=== PATIENT | male | born 1955 | race Caucasian/White ===

== ENCOUNTER → 2019-09-10 08:02 | Outpatient (CLI) | payer OTHER, SELFPAY | PROVIDERS: Family Provider Family Medicine; PCP Family Medicine; Referring Provider Family Medicine; Visit Provider Family Medicine | DX: E78.5 Hyperlipidemia, unspecified (principal) | CPT/HCPCS: 36415 ==

== ENCOUNTER → 2020-03-23 09:48 | Outpatient (CLI) | payer OTHER, MEDICARE, SELFPAY ==
--- NOTE | 2020-03-23 09:55 | CDU_ITS ---
Reason For Study: Carotid artery stenosis Rt. Velocities/BP Lt. Velocities/BP Prox CCA 69.5/20 cm/sec. Prox CCA 75/21.2 cm/sec. Mid CCA 74.7/20 cm/sec. Mid CCA 59.6/16.8 cm/sec. Dist CCA 53.9/16 cm/sec. Dist CCA 55.3/17.9 cm/sec. Prox ICA 48.7/14.6 cm/sec. Prox ICA 55.3/20.1 cm/sec. Mid ICA 60.8/24.5 cm/sec. Mid ICA 76.1/25.6 cm/sec. Dist ICA 90.4/34.4 cm/sec. Dist ICA 80.5/26.7 cm/sec. Rt. ICA/CCA = 1.3. Lt. ICA/CCA = 1.3. Prox ECA 93/16 cm/sec. Prox ECA 77.2/12.4 cm/sec. Rt. Vert. 49.8/17.9 cm/sec. Lt. Vert. 27.3/8 cm/sec. Right Extracranial There is homogeneous, smooth atherosclerotic plaque noted in the right common carotid artery. There is heterogeneous, irregular atherosclerotic plaque noted in the right internal carotid artery. There is heterogeneous, irregular atherosclerotic plaque noted in the right external carotid artery. Antegrade flow is noted in the right vertebral artery. Left Extracranial There is homogeneous, smooth atherosclerotic plaque noted in the left common carotid artery. There is heterogeneous, irregular atherosclerotic plaque noted in the left internal carotid artery. There is intimal thickening but no significant atherosclerotic plaque noted in the left external carotid artery. Antegrade flow is noted in the left vertebral artery. Procedure Carotid Duplex 00113. Exam performed in department. Interpretation Summary Mild (<50%) stenosis right extracranial internal carotid. Mild (<50%) stenosis left extracranial internal carotid. Flow within the vertebral arteries is antegrade bilaterally. Ordering Physician: Neftaly Swanson Referring Physician: Neftaly Swanson Performed By: Anali Larson RVT
== END ==
PROVIDERS: PCP Family Medicine; Referring Provider Family Medicine; Visit Provider Family Medicine
DX: I65.29 Occlusion and stenosis of unspecified carotid artery (principal)
CPT/HCPCS: 93880

== ENCOUNTER → 2020-10-01 10:18 | Outpatient (CLI) | payer MEDICARE, SELFPAY ==
--- NOTE | 2020-10-01 10:23 | US_ITS ---
PROCEDURES: ULTRASOUND AORTA REASON FOR EXAM: Male, 65 years old. SMOKER AAA SCREENING TECHNIQUE: Ultrasound evaluation of the aorta was performed with real-time and static ayers-scale imaging. COMPARISON: None. FINDINGS: There is atherosclerotic plaque formation of the abdominal aorta. Aorta measures: Proximal 2.3 cm. Middle 2.6 cm. Distal 1.8 cm. Aorta measure transversely: Proximal 2.4 cm. Middle 2.8 cm. Distal 2.1 cm. Right iliac artery measures: 1.0 cm. Right iliac artery measure transversely: 0.9 cm. Left iliac artery measures: 0.8 cm. Left iliac artery measure transversely: 0.9 cm. There is no demonstrated aneurysm.. US/Aorta IMPRESSION: Atherosclerotic plaque formation. No evidence of abdominal aortic aneurysm. Electronically Signed: José Justice, at 13:19 EST , Service support ,
--- NOTE | 2020-10-01 10:28 | RAD_ITS ---
STUDY: X-RAY - ESOPHAGUS (BARIUM SWALLOW) WITH FLUOROSCOPY REASON FOR EXAM: Male, 65 years old. Pat states he feels like there is a lump in his upper throat. Difficulty with liquids x 3 weeks. No hx of surgery/No CA. TECHNIQUE: 14 view(s) of the esophagus were obtained following swallowing of barium. FLUOROSCOPY TIME (if supplied): (0:35) minutes/seconds COMPARISON: None. FINDINGS: There is no demonstrated esophageal foreign body. There is no demonstrated stricture or mucosal abnormality. Normal gastroesophageal junction, without a demonstrated hiatal hernia. The patient ingested a 12 mm tablet of barium without any difficulty. Normal visualized aortic arch and descending thoracic aorta. Normal visualized pulmonary parenchyma. Normal visualized osseous structures of the thorax. RAD/Esophagus Dual Contrast IMPRESSION: Normal plain film x-ray examination (barium swallow) of the esophagus. Electronically Signed: José Justice, at 13:18 EST , Service support ,
== END ==
LOC: US 10:20
PROVIDERS: PCP Family Medicine; Referring Provider Family Medicine; Visit Provider Family Medicine
DX: F17.200 Nicotine dependence, unspecified, uncomplicated (principal); R13.10 Dysphagia, unspecified
CPT/HCPCS: 74221; 76775

== ENCOUNTER → 2020-11-04 16:58 | Outpatient (CLI) | payer MEDICARE, SELFPAY | PROVIDERS: PCP Family Medicine; Referring Provider Internal Medicine Gastroenterology; Visit Provider Internal Medicine Gastroenterology | DX: Z11.59 Encounter for screening for other viral diseases (principal) | CPT/HCPCS: 87635; C9803; U0005; U0003 ==

== ENCOUNTER → 2020-12-09 15:53 | Outpatient (CLI) | payer MEDICARE, SELFPAY ==
[2020-12-09 17:36] LABS: Absolute Lymphocyte Count 2.38 X10^3/uL (0.83-4.51); Absolute Neutrophil Count 3.5 X10^3/uL (2.0-7.7); Basophil# 0.07 X10^3/uL; Eosinophil# 0.17 X10^3/uL; Eosinophils% 2.5 % (0-5); Hematocrit 47.4 % (40-54); Hemoglobin 15.4 g/dL (13.0-16.5); Lymphocyte # 2.38 X10^3/ul (4.0); Lymphocyte % 35.5 % (19-41); Mean Corp Hgb Conc 32.5 g/dL (32-36); Mean Corpuscular Hgb 30.7 pg (27.0-32.0); Mean Corpuscular Volume 94.4 fL (80-94); Mean Platelet Vol. 9.6 fl (6.2-12.0); Monocyte# 0.51 X10^3/uL; Monocyte% 7.6 % (0-10); NRBC Flagged by Analyzer 0 % (0-5); Neutrophil # 3.53 X10^3/uL (2.7-7.7); Neutrophil % 52.8 % (47-70); Platelet Count 276 K/mm3 (150-450); RBC Distribution Width CV 12.9 % (11.6-14.6); RBC Distribution Width SD 45.1 fl (35.1-43.9); Red Blood Count 5.02 M/mm3 (4.6-6.2); White Blood Count 6.7 K/mm3 (4.4-11.0)
[2020-12-09 18:10] LABS: AST(SGOT) 14 U/L (15-37); Alanine Aminotransfer ALT/SGPT 24 U/L (16-61); Albumin, Serum 3.7 g/dL (3.2-5.0); Alkaline Phosphatase 28 U/L (45-117); Anion Gap 3 (5-15); BUN 21 mg/dL (7-18); BUN/Creat Ratio 17.4 RATIO (10-20); Calcium,Total 8.9 mg/dL (8.5-10.1); Chloride 105 mmol/L (98-107); Cholesterol 221 mg/dL (200); Creatinine, Serum 1.21 mg/dL (0.70-1.30); EST Glomerular Filtration Rate 64 mL/min (>60); Est Glom Filt Rate - Afr Amer 77 mL/min (>60); Globulin 3.8 g/dL (2.2-4.2); Glucose 85 mg/dL (74-106); High Density Lipoprotein 48 mg/dL; PSA,Total - Annual Screen 1.81 ng/mL (0.00-4.00); Protein, Total 7.5 g/dL (6.4-8.2); Sodium Level 138 mmol/L (136-145); Triglycerides 99 mg/dL; Very Low Density Lipoprotein 20 mg/dL (5-40)
== END ==
LOC: MFPLAB 15:56
PROVIDERS: PCP Family Medicine; Referring Provider Family Medicine; Visit Provider Family Medicine
DX: E78.5 Hyperlipidemia, unspecified (principal); Z12.5 Encounter for screening for malignant neoplasm of prostate
CPT/HCPCS: 36415; 80053; 80061; 84153; 85025; G0103

== ENCOUNTER → 2021-05-26 14:54 | Outpatient (CLI) | payer MEDICARE, SELFPAY ==
[2021-05-26 18:24] LABS: Cholesterol 177 mg/dL (200); High Density Lipoprotein 43 mg/dL; Triglycerides 133 mg/dL; Very Low Density Lipoprotein 27 mg/dL (5-40)
== END ==
PROVIDERS: PCP Family Medicine; Referring Provider Family Medicine; Visit Provider Family Medicine
DX: E78.5 Hyperlipidemia, unspecified (principal)
CPT/HCPCS: 36415; 80061

== ENCOUNTER 2021-11-22 15:19 | Outpatient (CLI) | payer MEDICARE, SELFPAY ==
[2021-11-22 17:57] LABS: ALB/GLOB Ratio 0.9 RATIO (0.9-2.4); AST(SGOT) 13 U/L (15-37); Alanine Aminotransfer ALT/SGPT 30 U/L (16-61); Albumin, Serum 3.6 g/dL (3.2-5.0); Alkaline Phosphatase 29 U/L (45-117); Anion Gap 5 (5-15); BUN 19 mg/dL (7-18); BUN/Creat Ratio 17.8 RATIO (10-20); Calcium,Total 9.1 mg/dL (8.5-10.1); Chloride 103 mmol/L (98-107); Cholesterol 176 mg/dL (200); Creatinine, Serum 1.07 mg/dL (0.70-1.30); EST Glomerular Filtration Rate 73 mL/min (>60); Est Glom Filt Rate - Afr Amer 89 mL/min (>60); Glucose 90 mg/dL (74-106); High Density Lipoprotein 48 mg/dL; Potassium 4.2 mmol/L (3.5-5.1); Protein, Total 7.6 g/dL (6.4-8.2); Sodium Level 137 mmol/L (136-145); Triglycerides 106 mg/dL; Very Low Density Lipoprotein 21 mg/dL (5-40)
[2021-11-23 10:02] LABS: Hepatitis C Antibody Non-Reactive (Nonreactive)
== END 2021-11-22 23:59 | disposition home or self-care (01) ==
LOC: MFPLAB 15:23
PROVIDERS: PCP Nurse Practitioner Family; Referring Provider Nurse Practitioner Family; Visit Provider Nurse Practitioner Family
DX: E78.5 Hyperlipidemia, unspecified (principal); Z11.59 Encounter for screening for other viral diseases
CPT/HCPCS: 36415; 80053; 80061; 86803

== ENCOUNTER → 2023-04-06 | Outpatient (CLI) | payer MEDICARE, SELFPAY ==
[2023-04-06 16:47] LABS: ALB/GLOB Ratio 0.8 RATIO (0.9-2.4); AST(SGOT) 16 U/L (15-37); Alanine Aminotransfer ALT/SGPT 20 U/L (16-61); Albumin, Serum 3.3 g/dL (3.2-5.0); Alkaline Phosphatase 30 U/L (45-117); Anion Gap 4 (5-15); BUN 22 mg/dL (7-18); BUN/Creat Ratio 21.4 RATIO (10-20); Chloride 108 mmol/L (98-107); Cholesterol 218 mg/dL (200); Creatinine, Serum 1.03 mg/dL (0.70-1.30); EST Glomerular Filtration Rate 76 mL/min (>60); Est Glom Filt Rate - Afr Amer 92 mL/min (>60); Globulin 3.9 g/dL (2.2-4.2); Glucose 84 mg/dL (74-106); High Density Lipoprotein 41 mg/dL; Potassium 4.2 mmol/L (3.5-5.1); Protein, Total 7.2 g/dL (6.4-8.2); Sodium Level 141 mmol/L (136-145); Triglycerides 161 mg/dL; Very Low Density Lipoprotein 32 mg/dL (5-40)
== END | disposition home or self-care (01) ==
LOC: MFPLAB 09:31
PROVIDERS: PCP Family Medicine; Visit Provider Family Medicine
DX: E78.5 Hyperlipidemia, unspecified (principal)
CPT/HCPCS: 36415; 80053; 80061

== ENCOUNTER → 2023-07-02 | Outpatient (CLI) | payer MEDICARE, SELFPAY ==
[2023-07-02 18:27] LABS: ALB/GLOB Ratio 1.1 RATIO (0.9-2.4); AST(SGOT) 20 U/L (15-37); Alanine Aminotransfer ALT/SGPT 25 U/L (16-61); Albumin, Serum 3.8 g/dL (3.2-5.0); Alkaline Phosphatase 28 U/L (45-117); Anion Gap 7 (5-15); BUN 22 mg/dL (7-18); BUN/Creat Ratio 18.8 RATIO (10-20); Chloride 104 mmol/L (98-107); Cholesterol 144 mg/dL (200); Creatinine, Serum 1.17 mg/dL (0.70-1.30); EST Glomerular Filtration Rate 66 mL/min (>60); Est Glom Filt Rate - Afr Amer 80 mL/min (>60); Globulin 3.5 g/dL (2.2-4.2); Glucose 90 mg/dL (74-106); High Density Lipoprotein 55 mg/dL; Protein, Total 7.3 g/dL (6.4-8.2); Sodium Level 137 mmol/L (136-145); Triglycerides 121 mg/dL; Very Low Density Lipoprotein 24 mg/dL (5-40)
== END | disposition home or self-care (01) ==
LOC: MFPLAB 16:40
PROVIDERS: PCP Family Medicine; Visit Provider Family Medicine
DX: E78.5 Hyperlipidemia, unspecified (principal)
CPT/HCPCS: 36415; 80053; 80061

== ENCOUNTER → 2023-08-10 | Outpatient (CLI) | payer MEDICARE, SELFPAY ==
--- NOTE | 2023-08-10 08:17 | ART_ITS ---
Reason For Study: LE Numbness Procedure A bilateral lower extremity continuous wave Doppler with analog waveform analysis,segmental pressures,and ankle brachial indexes without exercise. Left Segmental Pressures Left brachial= 158mmHg. Left posterior tibial artery = 179mmHg. Left dorsalis pedis artery = 145mmHg. Left digit = 126 mmHg. The left posterior tibial artery waveforms are triphasic. The left dorsalis pedis waveforms are biphasic. Right Segmental Pressures Right brachial= 151mmHg. Right posterior tibial artery = 166mmHg. Right dorsalis pedis artery = 156mmHg. Right digit = 111 mmHg. The right posterior tibial artery waveforms are triphasic. The right dorsalis pedis waveforms are triphasic. Indices The right ankle brachial index by the posterior tibial artery is 1.05. The right ankle brachial index by the dorsalis pedis is 0.99. The right digital-brachial index is 0.70. The right ankle brachial index by the posterior tibial artery post exercise is 1.06. The left ankle brachial index by the posterior tibial artery is 1.13. The left ankle brachial index by the dorsalis pedis is 0.92. The left digital-brachial index is 0.80. The left posterior tibial artery index post exercise is 1.11. VL/Lower Ext Art Exam w/ Exercise Interpretation Summary Triphasic Doppler waveforms are noted at ankle level on the right. Triphasic an d biphasic Doppler waveforms are noted at ankle level on the left. Pulse-volume recordings appear diminished at digital level bilaterally, but satisfactory at all other levels bilaterally. Resting an kle-brachial indices are normal bilaterally. The right digital-brachial index is mildly diminished. The left digital- brachial index is normal. The patient was ambulated on a treadmill at 1 MPH for 5 minutes at a 5% incline, following which ankle pressures and ankle-brachial indices remained es sentially unchanged. Arterial flow appears normal at ankle level bilaterally, and at digital level o n the left. There is evidence of mild arterial occlusive disease at digital level on the right. Ordering Physician: Scott Mejia Referring Physician: SCOTT MEJIA MD Performed By: Glenn Ponce RVT
--- NOTE | 2023-08-10 08:18 | CT_ITS ---
STUDY: LOW DOSE CT LUNG CANCER SCREENING REASON FOR EXAM: Male, 68 years old. TOBACCO USE. Patient smoked 1 pack per day for 50 years. RADIATION DOSAGE (If Supplied By Facility): CTDIvol = ( 3.02 ) mGy, DLP = ( 108.35 ) mGycm TECHNIQUE: No contrast was administered. Low dose technique was utilized (average mAS-38 and kVp 120). 1.25 mm axial source images with a slice interval of 1.25-mm were reconstructed in lung windows. 2.5 mm axial source images with a slice interval of 2.5-mm were reconstructed in lung windows. 5.0 mm axial source images with a slice interval of 5.0-mm were reconstructed in soft tissue windows. COMPARISON: None. NODULES: There is a 9.6 mm x 5.3 mm spiculated nodule in the posterior aspect of the right upper lobe. Emphysema: Hyperinflation. Emphysematous changes. Scarring in the lung apices. Endobronchial lesion: Unremarkable Aorta: Atherosclerotic plaque calcification. CORONARY ARTERIES: Coronary artery calcification is seen. Heart: Unremarkable Pulmonary artery: Unremarkable Mediastinal nodes: Small mediastinal lymph nodes. Other chest and abdominal findings: CT/Low Dose CT Lung Screening IMPRESSION: Lung-RADS category 4B - Chest CT with or without contrast, PET/CT and/or tissue sampling can be obtained depending on the probability of malignancy and comorbidities. IMPORTANT NOTES FOR USE: ACR Lung-RADS Version 1.1 Assessment Categories Release Date: 2018 Category: Coded 0-4 bases on nodule(s) with highest degree of suspicion. Negative screen is defined as categories 1 and 2; a positive screen is defined as categories 3 and 4. Category 3 and 4A nodules that are unchanged on interval CT should be coded as category 2, and individuals returned to screening in 12 months. Category 4X: Category 3 or 4 nodules with additional imaging findings that increase the suspicion of lung cancer, such as spiculation, GGN that doubles in size in 1 year, enlarged lymph notes, etc. Category Modifiers: S (significant finding unrelated to lung cancer) Electronically Signed: José Justice MD at 14:48 EST ,
== END | disposition home or self-care (01) ==
PROVIDERS: PCP Family Medicine; Referring Provider Family Medicine; Visit Provider Family Medicine
DX: Z12.2 Encounter for screening for malignant neoplasm of respiratory organs (principal); I73.9 Peripheral vascular disease, unspecified; F17.210 Nicotine dependence, cigarettes, uncomplicated
CPT/HCPCS: 71271; 93924

== ENCOUNTER → 2023-08-13 | Outpatient (CLI) | payer MEDICARE, SELFPAY ==
--- NOTE | 2023-08-13 16:15 | MRI_ITS ---
STUDY: MRI BRAIN WITHOUT CONTRAST REASON FOR EXAM: Male, 68 years old. IMBALANCE TECHNIQUE: Standardized multiplanar fat and water weighted pulse sequences were obtained. MRI examination brain fusion protocol including multiplanar multiecho noncontrast imaging. Contrast: No contrast administered. COMPARISON: No relevant prior comparison study available HEMISPHERES, CEREBELLUM AND BRAINSTEM: 1. The cerebral parenchyma, ventricular system, subarachnoid spaces have normal configuration and density. There is a normal gyral pattern. There is normal ayers/white differentiation. No midline shift.. 2. Diffuse involutional changes and scattered chronic microvascular deep white matter disease is noted. There is an area of remote lacunar infarct in the RIGHT caudate head. Additional area of remote infarct involving the LEFT posterior thalamus. 3. No intraparenchymal mass, hemorrhage, or acute territorial infarct. 4. The cerebellum, brainstem, basilar and suprasellar cisterns have normal appearance. No Chiari malformation. 5. Normal appearance the visualized 7th and 8th cranial nerve complexes, IACs and membranous labyrinth. No mass is noted. No abnormal fluid collections or cavities or mastoid air cells. PITUITARY: Infundibulum and pituitary have normal configuration. Midline structures appear normal. CSF SPACES: Appropriate for age. No hydrocephalus. Basal cisterns are patent. VESSELS: 1. There are normal flow voids noted in the great vessels at the skull base ORBITS AND PARANASAL SINUSES: 1. Both globes, extraocular muscles, optic nerves and retrobulbar fat appear unremarkable. 2. Paranasal sinuses are clear. BONY ELEMENTS: Bony elements of the cranial vault, facial skeleton and skull base have normal appearance. SCALP AND SOFT TISSUES: Normal appearance of the soft tissues of the scalp and the visualized face OTHER: None MRI/Brain without Contrast IMPRESSION: 1. Diffuse involutional change, chronic microvascular deep white matter disease and area of remote lacunar infarct involving the RIGHT caudate. Additional area of remote infarct present in the LEFT posterior thalamus. 2. No mass, hemorrhage, or acute territorial infarct noted. 3. Normal appearance of the 7th and 8th cranial nerve complexes, IACs and membranous labyrinth. No mass is noted. No evidence fluid or soft tissue accumulation middle ear cavities or mastoid air cells Electronically Signed: Zafar Ramsay MD at 22:25 EST ,
[2023-08-13 18:38] LABS: Anion Gap 6 (5-15); BUN 18 mg/dL (7-18); BUN/Creat Ratio 18.6 RATIO (10-20); Calcium,Total 8.6 mg/dL (8.5-10.1); Chloride 105 mmol/L (98-107); Creatinine, Serum 0.97 mg/dL (0.70-1.30); EST Glomerular Filtration Rate 82 mL/min (>60); Est Glom Filt Rate - Afr Amer 99 mL/min (>60); Glucose 95 mg/dL (74-106); Potassium 4.2 mmol/L (3.5-5.1); Sodium Level 139 mmol/L (136-145)
== END | disposition home or self-care (01) ==
PROVIDERS: PCP Family Medicine; Referring Provider Family Medicine; Visit Provider Family Medicine
DX: R26.89 Other abnormalities of gait and mobility (principal)
CPT/HCPCS: 36415; 70551; 80048

== ENCOUNTER → 2023-08-23 | Outpatient (CLI) | payer MEDICARE, SELFPAY ==
--- NOTE | 2023-08-23 09:52 | NEURO_ITS ---
NCS and/or EMG Patient Report Ordering Doctor: Scott Mejia DATE OF SERVICE: 08/23/23 Clinical Summary: 68 year old male presenting with complaints of numbness, tingling, and weakness in the lower extremities. Symptoms are most noticeable in the distal lower extremities. This EMG/NCS was performed to evaluate for peripheral polyneuropathy and/or lumbosacral radiculopathies. Nerve Conduction Studies Summary: The superficial SNAP was absent bilaterally. The right peroneal-EDB CMAP amplitude was diffusely reduced. The right peroneal motor conduction velocity was reduced diffusely. Needle Examination Summary: There was a higher proportion of motor unit action potentials with reduced recruitment, increased amplitude, increased duration, and polyphasia in the right biceps femoris (long head) and right medial gastrocnemius muscles. Impression: There is electrodiagnostic evidence of the following - 1) Chronic, right S1 radiculopathy There is no definite electrodiagnostic evidence of a large-fiber based periphe ral polyneuropathy. Please be aware, however, that a small fiber-based peripheral polyneuropathy cannot be confirmed or rule out with conventional electrodiagnostic testing such as EMG/NCS. Multi Select Codes Neurology Neurology Interp Codes: 83666-67 Musc test done w/n test comp (interp) (2) and 60046-34 Nrv cndj test 11-12 studies (interp)
== END | disposition home or self-care (01) ==
PROVIDERS: PCP Family Medicine; Referring Provider Family Medicine; Visit Provider Family Medicine
DX: R20.0 Anesthesia of skin (principal)
CPT/HCPCS: 95886; 95912

== ENCOUNTER 2023-08-24 09:00 | Outpatient (RCR) | payer MEDICARE, SELFPAY ==
--- NOTE | 2023-07-25 09:56 | HP.PTEVAL_ITS ---
Patient's Visit Information Visit Information Visit Information: SARTHAK CUEVAS Jr. is a 68 year old M referred to Physical Therapy by Dr. Scott Mejia MD with a diagnosis of Fall risk, imbalance. Date of Evaluation: 07/20/23 Physical Therapist: Noah De Leon DPT Visit Plan Frequency: 2x /Week Duration: 6 Weeks Plan: Work on BLE strengthening especially R ankle strengthening. Progress dynamic balance. I gave him SLS balance and CKC LE strengthening for HEP. Progress as able. Subjective Subjective: Pt. is here today for his initial evaluation with diagnosis fall risk/balance. Pt. reports almost falling several times both at work and at home. He reports having increased difficulty with feeling his feet resulting in increased imbalance. 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 Pt. reports having increased tingling and weakness in his R leg after a back injury and surgery many years ago. Pt. reports that his leg does not give out on him. He reports having some dizziness at times as well. Pt. just does not feel luis on his feet. Sarthak does not use an AD. Pt. has history of neuropathy, non diabetic. Pt. is to have an EMG in a month or so. Pt. is hopeful to increase BLE strength and balance. Objective Objective: POSTURE: Pt. has slight flexed posture in stance. WOB. PALPATION: No pain with palpation throughout BLEs. NEURO: Normal DTR of BLEs. slight reduction in light touch on R side, mostly distally. Pt. is able to rise on toes, but not on heels. ROM: LUMBAR SPINE: min loss flexion, mod loss ext, rotation min loss throughout. Pt. has tight B calves and tight B HS. MMT: LLE: ankle 5/5 throughout; knee: ext 5-/5, flexion 5-/5; hip: flexion 4+/5, abd 4/5, ext 4/5. RLE: ankle 5/5 throughout; except DF 4/5; knee: ext 4+/5, flexion 5-/5; hip: flexion 4+/5, abd 4/5, ext 4/5. GAIT: Pt. ambulates with out AD. Pt. has increased lateral sway with gait, worse with increased tempo. No LOB noted. STAIRS: Pt. is able to complete but difficulty with controlled eccentric lowering with descending, uses 2 HR to complete. Balance/Special Test Scores Functional Gait Assessment Score: 18 % Disability: 40.0000 Lower Extremity Functional Score: 32 TUG Test Time Seconds: 16 30 Second Chair Rise Test Seconds: 13 6 Minute Walk Test: 917 feet no AD Goals Goal 1:: LTG: Pt. to be I with HEP for strengthening and balance exercises. Goal Time Frame: 4-6 Weeks Goal 2:: LTG: Pt. to have improved TUG score to less than 8 seconds without AD. Goal Time Frame: 4-6 Weeks Goal 3:: LTG: Pt. to have improved distance with 6 MWT to at least 1200 feet. Goal Time Frame: 4-6 Weeks Goal 4:: LTG: Pt. to have increased BLE strength increased to 5/5 throughout. Goal Time Frame: 4-6 Weeks Goal 5:: LTG: Pt. have FGA score increased to 23/30 indicating increased stability. Goal Time Frame: 4-6 Weeks Rehabilitation Potential Physical Therapy Diagnosis: Pt. has signs and symptoms consistent with being a falls risk and need for balance training. Pt. would benefit from PT to increase his BLE strength, and progress balance training. Rehabilitation Potential: Good Anticipated Interventions Patient/Client Instruction: Educate patient on: Condition, Plan of Care, Risk Factors and Benefits of Fitness Program Therapeutic Exercise to Include: Strength training, Power training, Balance training, Agility training, Flexibilty training and Gait and locomotor training For the Purpose of:: To increase oxygenation perfusion, To improve muscle perf ormance and motor function, To improve ability to perform ADL's, To increase tolerance to activity/condition/position, To improve gait and locomotor functions, To improve health of tissue, To decrease soft tissue restriction, To increase flexibility/ROM, To improve endurance and To improve balance Text: Thank you for the opportunity to evaluate your patient. For Medicare and Medicare HMO plans, please review the plan of care and approve it. It will need to be FAXED BACK to us at [phone] for Medicare purposes. For Medicare only, by signing this I certify the plan of care. Please let me know if there are questions or concerns regarding this plan of care. Physician Signature: Date:
--- NOTE | 2023-08-24 10:54 | HP.PTREVAL ---
Re-Evaluation Intro: Dr. Scott Mejia MD, It has been my pleasure to treat EVON CUEVAS Jr. over the last 4 visits for Fall risk, imbalance. Please see the progress note below for an update on the physical therapy plan of care! Subjective Subjective: Pt. arrives today for his re assessment. Pt. since I last saw him has fallen 3 times. No marked injury. He report falling once with physician whom caught him. He reports that his R foot continues to catch causing him to fall. Suggesting foot drop. He has also saw neurology for EMG. I looked at the EMG report and it seems to suggest chronic Right S1 radiculopathy. Objective Objective/Function: ROM: LUMBAR SPINE: flexion min loss NE, ext mod/max loss increase in tingling. SB min loss B NE, rotation min/mod loss bilat NE. Pt. has tight HS bilaterally. MMT: RLE: ankle: DF 23.1#, PF 41.3#; knee: ext: 38#, flexion 18.5# LLE: ankle: DF 31.3#, PF 47.7#; knee: ext: 43#, flexion 23.3# gait: Without AD. Pt. has increased difficulty. Marked lateral sway, He did not have any foot catching, but did describe feeling like he did not have control of his R leg it is just there. I had him walk with a cane. this was much better. HE reports much more stability. STAIRS: Pt. requires 2 HR to complete. Pt. ascends well. He has more difficulty descending when he is leading with his R leg. He reports hard to get his R leg to land where he wants it to. TU sec with cane FGA: was a little worse than last time I suggested that he use the cane currently. If his falls keep occurring he needs to follow up with physician sooner. He had reduced stability in stance with FGA and reduced distance with 6 MWT. He did have some relief with his tingling with R SKTC, worse with lumbar extension. I would consider lumbar spine pathology. I would suggest continued strengthening on LEs and core to increase stability. Add in dynamic balance in order to correct LOB if occurring. Plan Plan Plan: I am asking for more visits x1 per week for 4 weeks. Progress his balance and LE strength. I do suggest that he have his spine looked closer at to make sure we are not dealing with a greater nerve injury from his spine. Balance/Gait/Functional tests Balance/Special Test Scores Functional Gait Assessment Score: 16 % Disability: 46.6700 Lower Extremity Functional Score: 32 TUG Test Time Seconds: 15 Tug Test: <20 sec.=mostly independent 30 Second Chair Rise Test Seconds: 13 6 Minute Walk Test: 871 feet with SPC Goals Goals Goal 1:: LTG: Pt. to be I with HEP for strengthening and balance exercises. Goal Time Frame: 4-6 Weeks Goal Progress: Progressing Goal 2:: LTG: Pt. to have improved TUG score to less than 8 seconds without AD. Goal Time Frame: 4-6 Weeks Goal Progress: Progressing Goal 3:: LTG: Pt. to have improved distance with 6 MWT to at least 1200 feet. Goal Time Frame: 4-6 Weeks Goal Progress: Not Progressing Goal 4:: LTG: Pt. to have increased BLE strength increased to 5/5 throughout. Goal Time Frame: 4-6 Weeks Goal Progress: Progressing Goal 5:: LTG: Pt. have FGA score increased to 23/30 indicating increased stability. Goal Time Frame: 4-6 Weeks Goal Progress: Not Progressing Anticipated Interventions Anticipated Interventions Patient/Client Instruction: Educate patient on: Condition, Plan of Care, Risk Factors and Benefits of Fitness Program Therapeutic Exercise to Include: Strength training, Power training, Balance training, Agility training, Flexibilty training and Gait and locomotor training For the Purpose of:: To increase oxygenation perfusion, To improve muscle performance and motor function, To improve ability to perform ADL's, To increase tolerance to activity/condition/position, To improve gait and locomotor functions, To improve health of tissue, To decrease soft tissue restriction, To increase flexibility/ROM, To improve endurance and To improve balance Re-Evaluation Ending Re-evaluation ending: Please do not hesitate to contact me at [phone] by phone or if you have questions or concerns regarding this new plan of care! Sincerely, Noah De Leon DPT
== END 2023-08-24 19:00 | disposition home or self-care (01) ==
LOC: PT 09:00
PROVIDERS: PCP Family Medicine; Referring Provider Family Medicine; Visit Provider Family Medicine
DX: R26.89 Other abnormalities of gait and mobility (principal); Z91.81 History of falling
CPT/HCPCS: 97110; 97161; 97164

== ENCOUNTER → 2023-09-04 | Outpatient (CLI) | payer MEDICARE, SELFPAY ==
--- NOTE | 2023-09-04 13:58 | CDU_ITS ---
Reason For Study: HX of Stroke Rt. Velocities/BP Lt. Velocities/BP Prox CCA 54.4/15.7 cm/sec. Prox CCA 68.3/19.2 cm/sec. Mid CCA 54.7/18.8 cm/sec. Mid CCA 64.6/20.4 cm/sec. Dist CCA 51.9/18.8 cm/sec. Dist CCA 67.7/21.5 cm/sec. Prox ICA 47.1/16.0 cm/sec. Prox ICA 72.1/24.8 cm/sec. Mid ICA 68.6/29.9 cm/sec. Mid ICA 84.2/34.7 cm/sec. Dist ICA 90.8/38.0 cm/sec. Dist ICA 87.5/32.5 cm/sec. Rt. ICA/CCA = 1.7. Lt. ICA/CCA = 1.4. Prox ECA 87.2/15.4 cm/sec. Prox ECA 100.2/16.7 cm/sec. Rt. Vert. 50.1/17.1 cm/sec. Lt. Vert. 26.3/8.5 cm/sec. Right Extracranial There is homogeneous, smooth atherosclerotic plaque noted in the right common carotid artery. There is heterogeneous, irregular atherosclerotic plaque noted in the right internal carotid artery. There is heterogeneous, irregular atherosclerotic plaque noted in the right external carotid artery. Antegrade flow is noted in the right vertebral artery. Left Extracranial There is homogeneous, smooth atherosclerotic plaque noted in the left common carotid artery. There is heterogeneous, irregular atherosclerotic plaque noted in the left internal carotid artery. There is heterogeneous, irregular atherosclerotic plaque noted in the left external carotid artery. Antegrade flow is noted in the left vertebral artery. Procedure Carotid Duplex [id number]. This is a Carotid Duplex examination using B-mode, color flow and specral Doppler. The exam was diagnostic. Exam performed in department. VL/Carotid Duplex Ultrasound Interpretation Summary Mild (<50%) stenosis right extracranial internal carotid. Mild (<50%) stenosis left extracranial internal carotid. Patent and antegrade vertebrals bilaterally. Ordering Physician: Scott Mjeia Referring Physician: Scott Mejia Performed By: Glenn Ponce RVT
--- NOTE | 2023-09-04 14:20 | CT_ITS ---
STUDY: CT CHEST WITHOUT CONTRAST REASON FOR EXAM: Male, 68 years old. Spiculated nodule in the posterior upper lobe on low dose CT RADIATION DOSAGE (If Supplied By Facility): CTDIvol = ( 10.62 ) mGy, DLP = ( 424.23 ) mGycm TECHNIQUE: Transaxial imaging was performed without the administration of intravenous contrast material. Multiplanar coronal and sagittal images were reformatted. Individualized dose optimization techniques were used for this CT. COMPARISON: Comparison is made with prior study dated August 10, 2023. FINDINGS: CHEST Stable scarring in the lung apices slightly worse on the left side. Stable 9.6 mm x 5.3 mm peripheral nodule in the posterior aspect of the right upper lobe. Hyperinflation. Emphysematous changes. There is no demonstrated pleural abnormality. There are calcifications of the coronary arteries. Normal mediastinum. Normal hilar regions. Normal unenhanced pulmonary arteries. There is atherosclerotic calcification of the aortic arch. There are multi-level degenerative changes of the thoracic spine. There is no demonstrated abnormality of the visualized upper abdomen. CT/Chest WITH Contrast IMPRESSION: Stable 9.6 mm x 5.3 mm micronodule in the posterior aspect of the right upper lobe. Correlation with a PET scan is recommended. Emphysematous changes with scarring at the lung apices. Electronically Signed: José Justice MD at 15:27 EST ,
== END | disposition home or self-care (01) ==
LOC: CVS 13:52
PROVIDERS: PCP Family Medicine; Referring Provider Family Medicine; Visit Provider Family Medicine
DX: R91.1 Solitary pulmonary nodule (principal); Z86.73 Personal history of transient ischemic attack (TIA), and cerebral infarction without residual deficits
CPT/HCPCS: 71260; 93880; Q9967

== ENCOUNTER → 2023-09-18 | Outpatient (CLI) | payer MEDICARE, SELFPAY ==
--- NOTE | 2023-09-18 10:30 | PET_ITS ---
EXAMINATION: FDG PET/CT ? INDICATIONS: 68-year-old male with a history of pulmonary nodularity. ? COMPARISON EXAMINATION: CT of the chest study dated 09/04/2023. ? INDEX LESION SIZE SUV INTERPRETATION Right upper lung field, right upper lobe 10.6 mm 3.1 Fulfills quantitative criteria for viable neoplasm ? Right posterior ileum ? 3.2 max Quantitative criteria for viable neoplasm are fulfilled ? TECHNIQUE: Following the intravenous administration of 13.79 mCi of F-18 deoxyglucose via the right antecubital fossa, multiplanar image acquisitions of the head, neck, chest, abdomen and pelvis to the level of the midthigh, obtained at one-hour post radiopharmaceutical administration contemporaneously interpreted with the current CT of the chest, abdomen and pelvis dated 09/18/[address] of the chest study dated 09/04/2023 via coregistration reveal: SERUM GLUCOSE LEVEL:? 101 mg/dL? HEIGHT:?? 69 inches WEIGHT:?? 159 pounds ? FINDINGS: ? HEAD/NECK:? There is no evidence of abnormal increased glucose metabolism in the pharyngeal mucosal space, parapharyngeal space, oropharynx, bilateral-lateral and anterior neck, hypopharynx and distribution of the larynx. ? The visualized portion of the cerebral cortical-subcortical structures demonstrate symmetric and preserved glucose metabolism. ? CHEST:? Facilitated uptake is noted in the right upper posterior lung zone, right upper lobe. The calculated maximum standard uptake value is 3.1. The maximum axial diameter of the metabolic, morphologic abnormality is 10.6 mm. There is visualized radiopharmaceutical concentration noted in the left ventricular myocardium, consistent with the fed state. ? CT of the chest demonstrates the following anatomic characteristics: Linear parenchymal changes noted in the left apical lung zone are ametabolic. Emphysematous changes are defined in the right and left lung pemberton. Atherosclerotic calcification is defined in the thoracic aorta without evidence of dilatation, aneurysm formation. Coronary arterial calcification is observed. Right and left axillary soft tissue densities are ametabolic. Mediastinal soft tissue reveals no evidence of increased tracer uptake.? ? ABDOMEN/PELVIS:? Normal physiologic distribution of the radiopharmaceutical is identified in the hepatic (2.8) and splenic parenchyma, both renal units, urinary bladder, and visualized intestinal tract. Diffuse intestinal tract is identified in all four quadrants of the abdomen and pelvis. ? CT of the abdomen and pelvis is remarkable for the following: Atherosclerotic calcification is defined in the abdominal aorta without evidence of dilatation, aneurysm formation. Abdominal-pelvic arterial calcification is observed. Calcified phlebolith formation is noted. Calcification within the prostate gland is demonstrated. A fat-containing right inguinal hernia is demonstrated. ? SKELETAL:? A focus of increased radiopharmaceutical concentration is defined in the right posterior ileum, generating a calculated standard uptake value of 3.2. ? PET/PET/CT Tumor Base -Thigh Init IMPRESSION: 1. Increased FDG concentration manifest in the right upper lung field, right upper lobe, fulfills quantitative criteria for malignant transformation. Histopathologic analysis is recommended. (Felicitas et al, Journal of Nuclear Medicine, 32:1, 1990). 2. Facilitated glucose metabolism observed in the right posterior ileum fulfills quantitative criteria for viable osseous neoplasia with single-point technique. (Tone et al, Clinical Nuclear Medicine, 29:161, 2004). ? Electronic Signature Zafar Mcpherson D.O. Accurate Quantification of SUVs for this report are calculated using the exclusive [employer] Technology. (U.S. Patent No. 10, 674, 983 B2 [phone] [place] patent [id number] [id number] [id number]). Standardization and correction of the FDG SUV metric via [employer] technology allow for vendor non-specific objective quantitative examination comparison and optimization of the sensitivity and specificity of the FDG PET-CT examination. . [email or web address] https://[employer] Electronically Signed: Zafar Mcpherson DO at 22:26 EST ,
== END | disposition home or self-care (01) ==
PROVIDERS: PCP Family Medicine; Referring Provider Family Medicine; Visit Provider Family Medicine
DX: R91.1 Solitary pulmonary nodule (principal)
CPT/HCPCS: 78815; A9552

== ENCOUNTER → 2023-09-26 | Outpatient (CLI) | payer MEDICARE, SELFPAY ==
[2023-09-26 09:35] LABS: Platelet Count 311 K/mm3 (150-450)
[2023-09-26 09:49] LABS: International Normalized Ratio 0.9; Prothrombin Time (Protime)PT. 12.4 SECONDS (11.7-14.9)
--- OUTSIDE RECORDS SUMMARY | 2023-09-26 10:27 | XMS RPT_ITS | CCD ---
Author Name Unknown Address [address] [place] [address] Organization [facility] Care Team Providers Care Boilermaking Supervisor Name Role Phone STACEY CEJA Unavailable Unavailable DUNIA AMSON Unavailable Unavailable Unavailable Primary Care Provider Unavailabl e Results Test Name Value Interpretation Reference Range Facil ity Encounters Encounter Date Encounter Type Care Provider Facility Start: 07-31-2023 Telephone encounter Neurology Provid er Neurology Payers Date Payer Category Payer Unknown ANTHEM BLUE CROS S AND BLUE SHIELD ANTHEM MEDIBLUE HMO [id number] 2021-Present [phone] [address] [place] [address] HMO [id number] 2018 Self-pay 1955 Unknown [id number] Social History Date Type Detail Facility Tobacco smoking status WYIS Tobacco smoking consumption unknown [facility] Work Phone: Start: 1955 Sex Assigned At Not on file [facility] Gender identity Not on file [facility] inic Note 07-31-2023 Telephone Encounter - Kenia Green - 07/31/2023 4:14 PM EST Note Date & Type Note Facility 07-31-2023 Miscellaneous Notes Formattin g of this note might be different from the original. Received a referral request for the patient from the Neurology nurse. The patient's demographic information needs to be updated. Copied the face sheet and asked one of the PSS to update the information. When information is updated, we will call the patient to schedule an appointment. documented in this encounter [facility] Summary Purpose Family History No Family History Records FoundNo Family History Records Found Advance Directives No Advanced Directives Records FoundNo Advanced Directives Records Found Additional Source Comments (unrecognized sect ion and content) No Status Records FoundNo Status Records Found INFORMATION SOURCE (unrecogn ized section and content) DATE CREATED AUTHOR AUTHOR'S RUBENS BEAUCHAMP 08/05/2023 [facility] Source Comments (unrecognize d section and content) In the event this informatio n is protected by the Federal Confidentiality of Alcohol and Drug Abuse Patient Records regulations: The Federal rules restrict any use of the information to criminally investigate or prosecute any alcohol or drug abuse patient.[facility] Reason for Visit (unrecogniz ed section and content) FOR RECORDS PERTAINING TO PATIENTS WHO ARE OR HAVE BEEN ENROLLED IN A CHEMICAL DEPENDENCY/SUBSTANCEABUSE PROGRAM, SOME INFORMATION MAY BE OMITTED. This clinical summary was aggregated from multiple sources. Caution should be exercised in using it in the provision of clinical care. This summary normalizes information from multiple sources, and as a consequence, information in this document may materially change the coding, format and clinical context of patient data. In addition, data may be omitted in some cases. CLINICAL DECISIONS SHOULD BE BASED ON THE PRIMARY CLINICAL RECORDS. [facility] [employer] [facility]. provides no warranty or guarantee of the accuracy or completeness of information in this document.
== END | disposition home or self-care (01) ==
LOC: PAVLAB 09:15
PROVIDERS: PCP Family Medicine; Referring Provider Internal Medicine Critical Care Medicine; Visit Provider Internal Medicine Critical Care Medicine
DX: R91.1 Solitary pulmonary nodule (principal)
CPT/HCPCS: 36415; 85049; 85610; 85730

== ENCOUNTER 2023-10-12 07:27 | Outpatient (CLI) | payer MEDICARE, SELFPAY ==
[2023-10-12] VITALS (7 sets, daily range): BP systolic 106–181; BP diastolic 70–104; PULSE 70–93; RESP 14–21; TEMP 36.5; O2SAT 92–95; BMI 23.6
--- OUTSIDE RECORDS SUMMARY | 2023-10-12 07:33 | XMS RPT_ITS | CCD ---
Author Name Unknown Address [facility] [place] [address] Organization [facility] Care Team Providers Care Senior Foreman Name Role Phone Unavailable Primary Care Provider Kaitlynn MASON MD, DR DUNIA Casillas Primary Care MADELYN Britton DO Attending Kaitlynn lopez Results Test Name Value Interpretation Reference Range Facil ity Encounters Encounter Date Encounter Type Care Provider Facility Start: 10-01-[address] DUNIA MASON MD Fa cility:B Start: 07-31-2023 Telephone encounter Neurology Provid er Neurology Payers Date Payer Category Payer Self-pay 2021 Unknown ANTHEM BLUE CROS S AND BLUE SHIELD ANTHEM MEDIBLUE HMO [id number] 2021-Present [phone] [address] [place] [address] HMO [id number] 1955 Unknown [id number] Social History Date Type Detail Facility Tobacco smoking status NHIS Tobacco smoking consumption unknown [facility] Work Phone: Start: 1955 Sex Assigned At Not on file [facility] Gender identity Not on file [facility] inic Note 07-31-2023 Telephone Encounter - [...] schedule an appointment. documented in this encounter [facility] Summary Purpose Family History No Family History Records FoundNo Family History Records Found Advance Directives No Advanced Directives Records FoundNo Advanced Directives Records Found Additional Source Comments Source Comments (unrecognize d section and content) In the event this informatio n is protected by the Federal Confidentiality of Alcohol and Drug Abuse Patient Records regulations: The Federal rules restrict any use of the information to criminally investigate or prosecute any alcohol or drug abuse patient.[facility] Reason for Visit (unrecogniz ed section and content) (unrecognized sect ion and content) No Status Records FoundNo Status Records Found INFORMATION SOURCE (unrecogn ized section and content) DATE CREATED AUTHOR AUTHOR'S ORGANJASBIR ATION 10/02/2023 [facility] ([place]) FOR RECORDS PERTAINING TO PATIENTS WHO ARE [...] BE BASED ON THE PRIMARY CLINICAL RECORDS. [employer] [facility]. provides no warranty or guarantee of the accuracy or completeness of information in this document.
[2023-10-12] MEDS: 0.9% Saline Lock 10 ML Syringe IV (08:08)
[2023-10-12] MEDS: 0.9% Normal Saline (250mL Bag) 250 ML 15 ML IV (08:12)
[2023-10-12] MEDS: Midazolam 2 MG/2 ML Syringe IV (09:12)
[2023-10-12] MEDS: fentaNYL 100 MCG/2 ML Ampul IV (09:15)
--- NOTE | 2023-10-12 09:15 | ASPIGT_PTH ---
PATHOLOGY RESULTS PATIENT: EVON CUEVAS Jr. LOC: [place] U#:[id number] AGE/SX: 68/M ROOM: RE10/12/[address]: Dr. Mannie Ibarra DO : 1955 BED: DIS: 10/12/2023 SPEC #: [id number] RECD: 10/12/23 09:30 STATUS: SAWYER REMikey #: [id number] GERONIMO: 10/12/23 09:[address]: Mannie Ibarra DEPT: SURGICAL PATHOLOGY RECD BY: Jessica Patton ENTERED: 10/12/23 10:09 SP TYPE: ASP RAD OTHR DR: Dr. Scott Mejia MD Tissues: Lung, NOS Procedures: FNA Specimen Adequacy Special Stain Group II Surgery Specimen Level IV Imprint (control) HEADER OPERATION: CT-guided lung biopsy PRE-OP DIAGNOSIS: Right upper lobe lung nodule TISSUE SUBMITTED: Right upper lobe lung nodule 20-gauge core x5 MICROSCOPIC DIAGNOSIS Right upper lobe lung nodule, CT-guided core biopsy: Fragments of benign lung parenchymal tissue with extensive fibrosis. Negative for malignancy. See comment. CHADD:aleida 10/15/2023 COMMENT The specimen is evaluated at the time of biopsy by Dr. Jim. Immediate Evaluation = Negative for malignant cells. Correlation with clinical, radiologic findings and appropriate follow up are necessary. Case has been reviewed in consultation with Dr. Nixon who concurs with the above diagnosis. IDC:AM MICROSCOPIC DESCRIPTION Slides are reviewed. GROSS DESCRIPTION Received in fixative is one container labeled with the patient's name and designated right upper lobe lung nodule. The specimen consists of multiple irregular fragments of garcia soft tissue that in aggregate measure 1.0 x 0.1 x 0.1 cm. The specimen is totally submitted in one cassette. Three touch imprints are prepared at the time of core biopsy. / CHADD:aleida 10/12/2023 TC:5 CPT: 86033, 53970
[2023-10-12] MEDS: Lidocaine 2% (20 ml mdv) 20 ML Vial INFILT (09:33)
--- NOTE | 2023-10-12 09:45 | RAD_ITS ---
INDICATION: post lung biopsy -- Immediately post lung biopsy EXAMINATION/TECHNIQUE: X-RAY - XR Chest 2 Views COMPARISON: CT scan of the chest of 09/04/2023 FINDINGS: LINES/DEVICES: None. LUNGS: Patchy opacity in the right upper lung could be due to pulmonary hemorrhage. Small to moderate right apical pneumothorax. No evidence of pleural effusions. MEDIASTINUM AND CARDIOVASCULAR STRUCTURES: Cardiac silhouette not enlarged. Central airways and mediastinal contour are unremarkable. BONES AND SOFT TISSUES: Mild subcutaneous emphysema on the right side of the neck. RAD/Chest Insp/Exp 2 View IMPRESSION: 1. Small to moderate right apical pneumothorax. 2. Focal opacity in the right midlung could be due to pulmonary hemorrhage. 3. Mild subcutaneous emphysema. Electronically Signed: Boogie Gallardo MD at 10:04 [facility] ,
--- NOTE | 2023-10-12 10:00 | RAD_ITS ---
INDICATION: NEEDLE DECOMPRESSION POST LUNG BX EXAMINATION/TECHNIQUE: X-RAY - XR Chest 1 View COMPARISON: Previous of the same date done earlier. FINDINGS: LINES/DEVICES: Small chest tube in the right upper chest. LUNGS: Persistent right apical pneumothorax essentially unchanged in size since previous exam. Focal infiltrate is again seen in the right midlung zone. MEDIASTINUM AND CARDIOVASCULAR STRUCTURES: Cardiac silhouette not enlarged. Central airways and mediastinal contour are unremarkable. BONES AND SOFT TISSUES: Unremarkable. RAD/Chest 1 View (Portable) IMPRESSION: 1. Status post left chest tube placement. 2. Persistent right pneumothorax. Electronically Signed: Boogie Gallardo MD at 10:11 EST ,
== END 2023-10-12 23:59 | disposition home or self-care (01) ==
LOC: CT 07:29
PROVIDERS: PCP Family Medicine; Referring Provider Internal Medicine Critical Care Medicine; Visit Provider Internal Medicine Critical Care Medicine
DX: R91.1 Solitary pulmonary nodule (principal)
CPT/HCPCS: 32408; 71045; 71046; 77012; 88172; 88305; 88313; 99156; 99157; J7050; A4216

== ENCOUNTER 2023-10-12 09:56 | Inpatient (IN) | payer MEDICARE, SELFPAY ==
[2023-10-12] VITALS (12 sets, daily range): BP systolic 118–158; BP diastolic 78–109; PULSE 64–96; RESP 16–28; TEMP -17.7–36.6; O2SAT 94–99; BMI 24.1
--- NOTE | 2023-10-12 10:02 | NURSING ---
NO OLD EKGS
--- NOTE | 2023-10-12 10:07 | ED.RN ---
denise placed by suzanne palomo radiology. dr mejia at beside. post cxr, connected to water seal.
--- NOTE | 2023-10-12 10:09 | EX.ED.DYSGE1 ---
HPI History of Present Illness Chief Complaint: Shortness of Breath Informant: other (Radiology staff) Narrative Narrative: Patient was here in radiology getting an outpatient interventional radiology procedure for a lung mass biopsy, which was complicated by an iatrogenic pneumothorax right side. This was recognized immediately by the proceduralist, the patient had been given Versed 2 mg and fentanyl 50 mcg prior to the procedure, he was sedated more than expected from this, and he does have a history of COPD. He was brought over to the emergency department, and I met the patient and staff in the resuscitation room, his vital signs are stable he is breathing 16-18 times per minute, he is not responsive. At the time of my evaluation upon arrival, the nurse practitioner from is in the process of placing an anterior thoracostomy tube. PFSH PFSH Home Medications aspirin 81 mg tablet,delayed release 81 mg PO DAILY 09/26/23 [History Last Taken 10/11/23] atorvastatin 40 mg tablet 40 mg PO DAILY 09/26/23 [History Last Taken 10/11/23] pantoprazole 40 mg tablet,delayed release 40 mg PO DAILY 09/26/23 [History Last Taken 10/12/23] gabapentin 300 mg capsule 300 mg PO QHS 10/11/23 [History Last Taken 10/11/23] Allergy/AdvReac Type Severity Reaction Status Date / Time No Known Allergies Allergy Unverified 09/26/23 08:43 Social History Smoking Status: Current every day smoker tobacco type: cigarettes second hand exposure: Yes ROS ROS ED Review of Systems ROS Unobtainable: due to mental status EXAM Physical Exam Const Vital Signs: 10/12/23 09:57 10/12/23 09:59 10/12/23 10:08 Temperature 0 F L Temperature Source Temporal Pulse Rate 64 79 Respiratory Rate 18 16 Respiratory Effort Short of Breath Blood Pressure 120/84 H Blood Pressure Mean 96 Pulse Ox 99 98 Oxygen Delivery Method Non-Rebreather Non-Rebreather Nasal Cannula Oxygen Flow Rate (L/min) 2 10/12/23 10:09 10/12/23 10:14 Temperature Temperature Source Pulse Rate 76 Respiratory Rate 16 Respiratory Effort Blood Pressure 146/88 H Blood Pressure Mean 107 Pulse Ox 97 Oxygen Delivery Method Room Air Nasal Cannula Oxygen Flow Rate (L/min) 2 2 Positive well nourished and well developed General Appearance ED: well developed and NAD HEENT Reports moist mucous membranes Eyes PERRL Neck supple Neck Narrative: no meningismus Chest Wall inspection of chest normal and palpation of chest normal Resp normal respiratory effort Resp Narrative: Decreased breath sounds right side apex otherwise clear Cardio regular rate, regular rhythm and no murmurs GI non-tender and non-distended Auscultation: normoactive bowel sounds Extremity normal to inspection Neuro Neuro Narrative: Obtunded, breathing. Neris Coma Scale: document GCS findings None Withdraws to Pain Incomprehensible 7 Skin no rashes or lesions noted and no wounds MDM MDM MDM Narrative Medical decision making narrative: Initial chest x-ray performed right after the procedure was completed showed persistent pneumothorax. We were able to suction air out of the port of the pleura seal, and placement looks good. Therefore keeping in the differential a persistent air leak, I attached the thoracostomy to a pleura seal, and attached it to wall suction set at -20 cm of water pressure. After initial air was evacuated from the system, there is not a large persistent leak. Repeat 1 view chest x-ray 15 or 20 minutes later on my interpretation shows complete resolution of the pneumothorax with good placement of the tube. On reexamination patient is more alert, and able to talk, converse, GCS 15, since he was breathing 16-18 times per minute, we chose not to reverse the midazolam and wait for it to wear off which occurred without complication. He currently is on minimal oxygen via nasal cannula. Discussed with pulmonary who is in agreement with watching the patient for the day and night in the hospital. History & Record Review Discussion w/independent historian: Family (explained to family who later arrived at bedside) and Other (IR personnel) Additional record(s) reviewed:: Other (prior CXRs) Lab Data Attestation: I reviewed the patient's lab results. Labs: Laboratory Results - last 24 hr 10/12/23 10:15 WBC 8.1 RBC 5.13 Hgb 15.5 Hct 48.4 MCV 94.3 H MCH 30.2 MCHC 32.0 RDW Std Deviation 45.5 H RDW Coeff of Juliane 13.1 Plt Count 263 MPV 8.6 Immature Gran % (Auto) 1.500 H Neut % (Auto) 62.0 Lymph % (Auto) 26.8 Mcnairy % (Auto) 6.9 Eos % (Auto) 1.7 Baso % (Auto) 1.1 H Absolute Neuts (auto) 5.0 Absolute Lymphs (auto) 2.18 Nucleated RBC % 0 Sodium 142 Potassium 4.7 Chloride 109 H Carbon Dioxide 28.0 Anion Gap 5 BUN 19 H Creatinine 1.06 Estim Creat Clear Calc 0.00 Est GFR (MDRD) Af Amer 89 Est GFR (MDRD) Non-Af 74 BUN/Creatinine Ratio 17.9 Glucose 113 H Calcium 8.8 Rhythm Strip Rhythm Strip: Sinus Rhythm Rate: 55 Ectopy: None EKG Initial EKG: Attestation: I personally reviewed and interpreted this EKG as follows: Interpretation: Sinus Rhythm and No Acute Injury Pattern Comments: normal EKG Management Discussion w/another healthcare provider: Hospitalist and Marketing Project Manager ([facility]) Procedures Other Procedures Procedure(s): Directly supervised nurse practitioner placing Pleurasil thoracostomy device in the right anterior chest wall via modified seldinger technique. Tolerated well by patient under sterile conditions, no complications. Discharge Plan Triage Chief Complaint: Shortness of Breath ED Provider: Justin Jim Dx/Rx/DC Orders Clinical Impression: Iatrogenic pneumothorax, Nicotine dependence, cigarettes, uncomplicated, Lung nodule Prescriptions: No Action pantoprazole 40 mg tablet,delayed release (DR/EC) 40 mg PO DAILY Patient Comments: ONE TABLET TABLET BY MOUTH DAILY atorvastatin 40 mg tablet 40 mg PO DAILY Patient Comments: TAKE 1 TABLET BY MOUTH EVERY DAY aspirin 81 mg tablet,delayed release (DR/EC) 81 mg PO DAILY gabapentin 300 mg capsule 300 mg PO QHS Primary Care Provider: Scott Mejia Referrals: Scott Mejia MD [Primary Care Provider] -
[2023-10-12 10:22] LABS: Absolute Lymphocyte Count 2.18 X10^3/uL (0.83-4.51); Basophil# 0.09 X10^3/uL; Basophil% 1.1 % (0-1); Eosinophil# 0.14 X10^3/uL; Eosinophils% 1.7 % (0-5); Hematocrit 48.4 % (40-54); Hemoglobin 15.5 g/dL (13.0-16.5); Lymphocyte # 2.18 X10^3/ul (0.83-4.51); Lymphocyte % 26.8 % (19-41); Mean Corpuscular Hgb 30.2 pg (27.0-32.0); Mean Corpuscular Volume 94.3 fL (80-94); Mean Platelet Vol. 8.6 fl (6.2-12.0); Monocyte# 0.56 X10^3/uL; Monocyte% 6.9 % (0-10); NRBC Flagged by Analyzer 0 % (0-5); Neutrophil # 5.04 X10^3/uL (2.7-7.7); Platelet Count 263 K/mm3 (150-450); RBC Distribution Width CV 13.1 % (11.6-14.6); RBC Distribution Width SD 45.5 fl (35.1-43.9); Red Blood Count 5.13 M/mm3 (4.6-6.2); White Blood Count 8.1 K/mm3 (4.4-11.0)
--- NOTE | 2023-10-12 10:25 | RAD_ITS ---
INDICATION: thoracostomy/ reevaluate pneumothorax EXAMINATION/TECHNIQUE: X-RAY - XR Chest 1 View COMPARISON: Prior examination of the same date done earlier. FINDINGS: LINES/DEVICES: Right-sided Heimlich catheter in stable position. LUNGS: Markedly improved and almost resolved right apical pneumothorax. Focal right upper lobe infiltrate is again seen. MEDIASTINUM AND CARDIOVASCULAR STRUCTURES: Cardiac silhouette not enlarged. Central airways and mediastinal contour are unremarkable. BONES AND SOFT TISSUES: Unremarkable. RAD/Chest 1 View (Portable) IMPRESSION: Markedly improved to almost resolved right apical pneumothorax. Electronically Signed: Boogie Gallardo MD at 10:48 EST ,
--- OUTSIDE RECORDS SUMMARY | 2023-10-12 10:25 | XMS RPT_ITS | CCD ---
Author Name Unknown Address [facility] [place] [address] Organization [facility] Care Team Providers Care Surface Supervisor Name Role Phone Unavailable Primary Care Provider [...] S AND BLUE SHIELD ANTHEM MEDIBLUE HMO [id number] 2021-Present [phone] [address] [place] [address] HMO [id number] 1955 Unknown [id number] Social History Date Type Detail Facility Tobacco smoking status NHIS Tobacco smoking consumption unknown [facility] Work Phone: Start: 1955 Sex Assigned At Not on file [facility] Gender identity Not on file [facility] inic Note 07-31-2023 Telephone Encounter - [...] schedule an appointment. documented in this encounter [facility] Summary Purpose Family History No [...] or prosecute any alcohol or drug abuse patient.[facility] Reason for Visit (unrecogniz ed section and content) (unrecognized sect ion and content) No Status Records FoundNo Status Records Found INFORMATION SOURCE (unrecogn ized section and content) DATE CREATED AUTHOR AUTHOR'S ORGANJASBIR ATION 10/02/2023 [facility] ([place]) FOR RECORDS PERTAINING TO PATIENTS [...] BE BASED ON THE PRIMARY CLINICAL RECORDS. [employer] [facility]. provides no warranty or guarantee of the accuracy or completeness of information in this document.
[2023-10-12 10:39] LABS: Anion Gap 5 (5-15); BUN 19 mg/dL (7-18); BUN/Creat Ratio 17.9 RATIO (10-20); Calcium,Total 8.8 mg/dL (8.5-10.1); Chloride 109 mmol/L (98-107); Creatinine, Serum 1.06 mg/dL (0.70-1.30); EST Glomerular Filtration Rate 74 mL/min (>60); Est Glom Filt Rate - Afr Amer 89 mL/min (>60); Glucose 113 mg/dL (74-106); Potassium 4.7 mmol/L (3.5-5.1); Sodium Level 142 mmol/L (136-145)
--- NOTE | 2023-10-12 10:55 | NURSING ---
DR ROLAND FOR DR SIMS
--- NOTE | 2023-10-12 11:04 | NURSING ---
PCU OBS ROLAND PTX
--- NOTE | 2023-10-12 11:20 | PCM.HP.STD ---
HPI - General General Date of Admission: 10/12/23 Date of Service: 10/12/23 Chief Complaint: Pneumothorax HPI Narrative EVON CUEVAS, is a 68 M with history of right lung mass, GERD, COPD, tobacco use who presented to [facility] 10/12/2023 due to pneumothorax which occurred during a lung biopsy. This was immediately recognized by proceduralist and patient was brought to the ED and had an anterior thoracostomy tube placed. Patient was initially not very responsive but he been given 2 of Versed and 50 of fentanyl for the initial procedure and woke up from this without significant difficulty. Chest x-ray after thoracostomy was attached to pleural seal and air evacuated from system showed complete resolution of pneumothorax with good placement. Currently on minimal O2 via nasal cannula. ED physician spoke with clinical provider trainer on-call who is in agreement to see patient in consult after admission. Hospitalist consulted for admission. Patient evaluated at bedside with family present, reports his breathing is much better, has had some stabbing pain in his chest around the area of the pneumothorax and the chest tube and initially had had some blood in his sputum but is not coughing at this time during exam, only other complaint is that he is cold. Prior to coming in for biopsy patient reports he has not been having any medical complaints or problems. [facility] Home Medications aspirin 81 mg tablet,delayed release 81 mg PO DAILY 09/26/23 [History Last Taken 10/11/23] atorvastatin 40 mg tablet 40 mg PO DAILY 09/26/23 [History Last Taken 10/11/23] pantoprazole 40 mg tablet,delayed release 40 mg PO DAILY 09/26/23 [History Last Taken 10/12/23] gabapentin 300 mg capsule 300 mg PO QHS 10/11/23 [History Last Taken 10/11/23] Allergy/AdvReac Type Severity Reaction Status Date / Time No Known Allergies Allergy Unverified 09/26/23 08:43 Social History Smoking Status: Current every day smoker tobacco type: cigarettes second hand exposure: Yes ROS ROS Narrative General: feels very cold right now HENT: Denies headache, denies stuffy nose, denies sore throat EYES: Denies changes in vision Resp: did initially have some blood in his sputum, shortness of breath improving Cardiac: Has some sharp pain around the area of the chest tube GI: Denies abdominal pain, denies changes in bowel, denies nausea/vomiting : Denies changes in urination Extremity: Denies swelling MSK: Denies weakness Neuro: Denies any numbness/tingling Heme: Denies any bleeding or bruising Skin: Denies rashes Psychiatric: No complaints voiced Vital Signs Vital Signs Vital Signs: 10/12/23 09:57 10/12/23 09:59 10/12/23 10:08 Temperature 0 F L Temperature Source Temporal Pulse Rate 64 79 Respiratory Rate 18 16 Respiratory Effort Short of Breath Blood Pressure 120/84 H Blood Pressure Mean 96 Pulse Ox 99 98 Oxygen Delivery Method Non-Rebreather Non-Rebreather Nasal Cannula Oxygen Flow Rate (L/min) 2 10/12/23 10:09 10/12/23 10:14 10/12/23 10:51 Temperature Temperature Source Pulse Rate 76 72 Respiratory Rate 16 19 H Respiratory Effort Blood Pressure 146/88 H 152/109 H Blood Pressure Mean 107 123 Pulse Ox 97 96 Oxygen Delivery Method Room Air Nasal Cannula Nasal Cannula Oxygen Flow Rate (L/min) 2 2 10/12/23 11:06 Temperature Temperature Source Pulse Rate 83 Respiratory Rate 16 Respiratory Effort Blood Pressure 153/97 H Blood Pressure Mean 115 Pulse Ox 95 Oxygen Delivery Method Nasal Cannula Oxygen Flow Rate (L/min) 2 Weight Weight: 0 g Body Mass Index (BMI) 0.0 Physical Exam Narrative General: Alert, oriented, no apparent distress HEENT: Atraumatic, normocephalic Eyes: Anicteric, normal conjunctiva, extraocular movements grossly intact Neck: Supple Respiratory: Right sided wheezes, breath sounds bilaterally Cardiovascular: Regular rate and rhythm GI: Soft, nontender, nondistended Extremities: No edema Musculoskeletal: Moving all extremities Neuro: No overt focal neurological deficits Skin: No rashes appreciated Psych: Cooperative Results Lab / Micro Data 10/12/23 10:15 10/12/23 10:15 Labs: Laboratory Results - last 24 hr 10/12/23 10:15: WBC 8.1, RBC 5.13, Hgb 15.5, Hct 48.4, MCV 94.3 H, MCH 30.2, MCHC 32.0, RDW Std Deviation 45.5 H, RDW Coeff of Juliane 13.1, Plt Count 263, MPV 8.6, Immature Gran % (Auto) 1.500 H, Neut % (Auto) 62.0, Lymph % (Auto) 26.8, Desha % (Auto) 6.9, Eos % (Auto) 1.7, Baso % (Auto) 1.1 H, Absolute Neuts (auto) 5.0, Absolute Lymphs (auto) 2.18, Nucleated RBC % 0, Sodium 142, Potassium 4.7, Chloride 109 H, Carbon Dioxide 28.0, Anion Gap 5, BUN 19 H, Creatinine 1.06, Estim Creat Clear Calc 0.00, Est GFR (MDRD) Af Amer 89, Est GFR (MDRD) Non-Af 74, BUN/Creatinine Ratio 17.9, Glucose 113 H, Calcium 8.8 Rhythm Strip Rhythm Strip: Sinus Rhythm Rate: 55 Ectopy: None Imagaing Radiology Impression Chest X-Ray 10/12/23 10:25 IMPRESSION: Markedly improved to almost resolved right apical pneumothorax. Electronically Signed: Boogie Gallardo MD at 10:48 EST , Assessment & Plan Assessment/Plan (1) Iatrogenic pneumothorax: (2) Lung nodule: (3) Nicotine dependence, cigarettes, uncomplicated: (4) COPD (chronic obstructive pulmonary disease): (5) GERD (gastroesophageal reflux disease): PLAN: Plan #Iatrogenic pneumothorax on right s/p chest tube -During lung biopsy, immediately identified and brought to ED w/ chest tube placed -Pulm c/s -CXR w/ resolution of pneumothorax with tube placement and air removeal -Pain control -I/s #Lung mass -Follows w/ pulm on outpt basis #GERD -Continue PPI #Tobacco use -Advise cessation -Patient refuses nicotine replacement #DVT ppx: SCDs Annmarie Al MD Time spent in the patient's overall evaluation,decision-making process, review of diagnostic data, adjustment of management, discussion with other providers, nursing nursing and ancillary staff involved in patient's care documentation, 45 minutes Charges/Coding Visit Charges Inpatient E&M: 94387 Init Hosp L1
--- NOTE | 2023-10-12 11:20 | PCM.OP.PRO ---
Procedure Report Date of Procedure: 10/12/23 (7817) Assessment & Plan Assessment/Plan (1) Lung nodule: PLAN: PROCEDURE: CT GUIDED CORE NEEDLE LUNG BIOPSY ORDERING PROVIDER: Dr. Mannie Ibarra INDICATION: Male, 68 years old. Right upper lobe nodule. PROVIDER: MARIA T Bowen CONSENT: Written informed consent was obtained having explained the risks, specifically including bleeding, infection, and pneumothorax, benefits and alternatives in detail with the patient who accepted the risks and agreed to proceed. Laboratory review and clinical assessment was performed. PRE-PROCEDURE SEDATION ASSESSMENT: Current history and physical dictated by referring physician and reviewed. No clinical changes since date of exam. Patient has an ASA Class of 2. PROCEDURAL SEDATION PROTOCOL: The Drugs used were: 2 mg Versed, IV, and 50 mcg Fentanyl, IV. The sedation time was: 33 minutes, starting at 9:12 AM and terminated at 9:45 AM. The procedural sedation protocol was independently monitored by the department nurse. RADIATION DOSAGE (If Supplied By Facility): CTDIvol = 18.05 mGy, DLP = 887.24 mGycm Individualized dose optimization techniques were used for this CT. TECHNIQUE: The patient was placed in a prone position. A noncontrast CT was performed to localize the lesion in the right upper lobe. The skin surface was prepped and draped in a sterile fashion. 2% lidocaine was used for local anesthesia. Using CT guidance, a 20-gauge coaxial biopsy device was advanced at a 20 degree angle towards the periphery of the lesion, as the only accessible angle due to direct obstruction by rib and scapula posteriorly. Th this but the needle just medial of the periphery of the lesion when viewed under fluoroscopy. The needle was adjusted accordingly in a lateral direction into the lesion. It was apparent under fluoroscopy that the patient had developed a pneumothorax, but vital signs remained stable and patient was responsive. 5 core specimens were obtained. Specimens were microscopically reviewed by pathology in the CT suite and placed in formalin solution. The biopsy needle was removed. A sterile occlusive dressing was applied to the biopsy site. The patient tolerated the procedure well. An immediate chest xray was ordered, per protocol. During this x-ray, the patient became hypoxic and less responsive. A nonrebreather was applied and a rapid response was called. The patient was taken to ED room 2 by nursing staff and myself. Dr. Jim joined us at the bedside and the Thora vent supplies were assembled for insertion and an EKG was obtained. See separate procedure note for insertion of Thora vent and further emergency documentation. A negative biopsy does not exclude malignancy. Further imaging or clinical followup based on patient condition and degree of clinical suspicion for malignancy. Suggest rebiopsy, if biopsy results do not match with clinical scenario. IMPRESSION: 1. CT directed core needle biopsy of right upper lobe nodule using CT image guidance with image documentation as described. Pathology results are pending. 2. Procedural Sedation protocol utilized with independent monitoring by the department nurse. Procedures Radiology Radiology CT Procedures: 51171 Biopsy Lung
--- NOTE | 2023-10-12 11:39 | PRO.PCM_ITS ---
Procedure Report Date of Procedure: 10/12/23 (0955) Assessment & Plan Assessment/Plan (1) Iatrogenic pneumothorax: PLAN: PLAN: A chest x-ray was obtained post lung biopsy. This revealed a small to moderate right apical pneumothorax. The patient was transported to the emergency depar tment on the monitor by cart. With nursing staff present, the patient was transferred to the ER monitor and supplies gathered to insert the thoracic vent. Emergency department physician, Dr. Jim, was also at bedside. Patient history and course of the biopsy was reviewed, as was the chest imaging. The patient remained not responsive to verbal stimuli, and therefore was not premedicated besides the procedural medication used for the lung biopsy. The patient was positioned in high Fowlers. The right upper chest was cleansed with chlorhexidine. Using manual palpation, the second intercostal space in the mid clavicular line was marked. The skin was anesthetized locally with 2% lidocaine. After the local anesthetic was given time to take effect, a kim was made in the skin with the procedure tray scalpel. The thoracic vent was assembled for insertion with the trocar through the self-sealing port and catheter and the point of the trocar just slightly beyond the tip of the cathete r. The trocar/catheter assembly was then inserted to the pleural space. The red signal diaphragm deflected upwards once reaching the pleural space. At this point, the catheter was then advanced fully into the pleural space, over the trocar and the trocar was removed. The paper on the side flaps of the adhesive patches of the vent were peeled away and adhered to the chest wall to create an occlusive dressing. The tether cap was applied to the self-sealing port. A chest x-ray was ordered. This chest x-ray was evaluated at bedside with Dr. Jim and revealed the chest tube within the pleural space. The the Thora vent was connected to a Pleur-evac system at -20 mmHg pressure to expedite evacuation of pneumothorax. The patient will remain in the emergency department for observation and a repeat chest x-ray will be ordered to evaluate for resolution of the pneumothorax and determine disposition. The patient remains comfortable with oxygen saturation improving. The nonrebreather was removed and the patient was maintaining oxygen saturation and oxygen saturation of 95% on 2 L. The patient's and family member is at bedside and was updated as to the events of the biopsy and thoracic vent insertion. All questions were answered. Procedures Radiology Radiology US Procedures: Other Procedure See Report (Insertion of Thoravent (thoracic vent/chest tube))
--- OUTSIDE RECORDS SUMMARY | 2023-10-12 11:41 | XMS RPT_ITS | CCD ---
Author Name Unknown Address [facility] [place] [address] Organization [facility] Care Team Providers Care Silver Cleaner Name Role Phone Unavailable Primary Care Provider [...] S AND BL[employer] HMO [id number] 2021-Present [phone] [address] [place] [address] HMO [id number] 1955 Unknown [id number] Social History Date Type Detail Facility Tobacco smoking status NHIS Tobacco smoking consumption unknown [facility] Work Phone: Start: 1955 Sex Assigned At Not on file [facility] Gender identity Not on file [facility] inic Note 07-31-2023 Telephone Encounter - Kenia [...] schedule an appointment. documented in this encounter [facility] Summary Purpose Family History No Family History [...] or prosecute any alcohol or drug abuse patient.[facility] Reason for Visit (unrecogniz ed section and content) (unrecognized sect ion and content) No Status Records FoundNo Status Records Found INFORMATION SOURCE (unrecogn ized section and content) DATE CREATED AUTHOR AUTHOR'S ORGANJASBIR ATION 10/02/2023 [facility] ([place]) FOR RECORDS PERTAINING TO [...] BE BASED ON THE PRIMARY CLINICAL RECORDS. [facility]. provides no warranty or guarantee of the accuracy or completeness of information in this document.
--- OUTSIDE RECORDS SUMMARY | 2023-10-12 12:05 | XMS RPT_ITS | CCD ---
Author Name Unknown Address [facility] [place] [address] Organization [facility] Care Team Providers Care Bird Keeper Name Role Phone Unavailable Primary Care Provider [...] S AND [employer] HMO [id number] 2021-Present [phone] [address] [place] [address] HMO [id number] 1955 Unknown [id number] Social History Date Type Detail Facility Tobacco smoking status NHIS Tobacco smoking consumption unknown [facility] Work Phone: Start: 1955 Sex Assigned At Not on file [facility] Gender identity Not on file [facility] inic Note 07-31-2023 Telephone Encounter - Kenia [...] schedule an appointment. documented in this encounter [facility] Summary Purpose Family History No [...] or prosecute any alcohol or drug abuse patient.[facility] Reason for Visit (unrecogniz ed section and content) (unrecognized sect ion and content) No Status Records FoundNo Status Records Found INFORMATION SOURCE (unrecogn ized section and content) DATE CREATED AUTHOR AUTHOR'S ORGANJASBIR ATION 10/02/2023 [facility] ([place]) FOR RECORDS PERTAINING TO PATIENTS [...] BE BASED ON THE PRIMARY CLINICAL RECORDS. [facility]. provides no warranty or guarantee of the accuracy or completeness of information in this document.
[2023-10-12] MEDS: Morphine 2 MG/ML Syringe IV (12:34)
[2023-10-12] MEDS: Acetaminophen 500 MG Tablet 1000 MG PO ×2 (15:10→20:23)
[2023-10-12] MEDS: oxyCODONE 5 MG Tablet PO (15:10)
--- NOTE | 2023-10-12 15:40 | CT_ITS ---
We are attempting to reach an attending provider to discuss findings. An addendum with communication details will be sent when the communication is complete. INDICATION: stroke EXAMINATION: CT BRAIN - CT Head or Brain W/O Contrast Injection TECHNIQUE: Multiple axial images were obtained of the head without intravenous contrast. A radiation dose optimization technique was used for this scan. IV Contrast dosage and agent: None. COMPARISON: None. FINDINGS: BRAIN PARENCHYMA: No intra- or extra-axial hemorrhage. No evidence of acute infarct. No intracranial mass or mass effect. There is preservation of the ayers/white matter interface. Posterior fossa structures are unremarkable. CSF SPACES: Appropriate for age. No hydrocephalus. Basal cisterns are patent. CALVARIUM, SKULL BASE, PARANASAL SINUSES AND MASTOID AIR CELLS: Clear. No discrete lytic or blastic abnormalities. ORBITS: Both globes, extraocular muscles, optic nerves and retrobulbar fat appear unremarkable. CT/STROKE Brain/Head without Cont IMPRESSION: No acute intracranial findings. Electronically Signed: Juan Diego Heller MD at 16:13 EST ,
--- NOTE | 2023-10-12 15:54 | CT_ITS ---
INDICATION: Stroke symptoms EXAMINATION: CTA CAROTIDS AND BRAIN - CTA Head and Neck W/ Contrast Injection (and W/O Contrast Images if performed) TECHNIQUE: Routine CTA of the head and neck was performed with post processing of the angiographic images for volumetric reconstructions. In addition, images were obtained of the [place]ill[place] of Schmidt. Nascet criteria using the distal ICAs for comparison were used for evaluation of stenoses. 3D reconstructions were reviewed. A radiation dose optimization technique was used for this scan. IV Contrast dosage and agent: 100 cc [id number] COMPARISON: Noncontrast head CT same date FINDINGS: --NECK: AORTIC ARCH AND BRANCHES: Vessel origins patent. RIGHT CCA: No occlusion, significant stenosis or dissection. RIGHT ICA: No occlusion, significant stenosis or dissection. LEFT CCA: No occlusion, significant stenosis or dissection. LEFT ICA: No occlusion, significant stenosis or dissection. RIGHT VERTEBRAL ARTERY: No occlusion, significant stenosis or dissection. LEFT VERTEBRAL ARTERY: Diminutive vessel, terminates at the base of the skull. NECK SOFT TISSUES: Unremarkable. LUNG APICES: Right apical infiltrate with emphysematous changes and small apical pneumothorax. BONES: Degenerative changes. --HEAD: --Anterior circulation: ICAs: No significant stenosis at the intracranial/visualized segments. ACAs: No significant stenosis at the visualized segments. ACOM: Present. MCAs: No significant stenosis at the visualized segments. --Posterior circulation: PCOMs: Patent bilaterally. biotechnician: No significant stenosis at the visualized segments. BASILAR ARTERY: No significant stenosis. VERTEBRAL ARTERIES: No significant stenosis at the intradural/visualized segments. No evidence of intracranial aneurysm or vascular malformation. CT/CTA Head AND Neck W/ Contrast IMPRESSION: Negative CTA Head and Neck. Right apical infiltrate with small pneumothorax. Electronically Signed: Juan Diego Heller MD at 16:26 EST Reading Location ID and State: [facility] / [place] Tel , Service support ,
[2023-10-12 15:56] LABS: Bedside Glucose 149 mg/dL (74-106)
--- NOTE | 2023-10-12 16:36 | PCM.HOSP.N ---
Hospitalist Note Patient had stroke call 1537 with last known well 1230 at time of assessment to the floor. NIH of 9, patient unable to move left arm and has left-sided visual field defect, taken to CAT scan and CT and CTA obtained which were negative. Patient evaluated by stroke neurologist and stroke neurologist discussed with proceduralist who did biopsy and chest tube and given bleeding with the biopsy it was felt risks of bleeding were too high to proceed with TNK, stroke neurologist discussed with family and patient. It was advised that patient be given 81 mg of aspirin today and tomorrow loaded with 150 of Plavix followed by DAPT for 21 days and then aspirin indefinitely, monitor on telemetry and high intensity statin, lipid panel and A1c in the a.m., permissive hypertension [facility]. If no A-fib or other source found it is recommended the patient have janitorial account manager on DC. Stroke order set entered. All questions answered
--- NOTE | 2023-10-12 16:42 | ECHOD_ITS ---
Reason For Study: TIA/Stroke Procedure This was a 2D Doppler, Color Flow transthoracic echocardiogram. Exam performed portable in patient room. Left Ventricle Normal left ventricle. The estimated ejection fraction is 55-60 %. Right Ventricle Normal right ventricle. Normal systolic function. Atria Normal left atrium. Normal right atrium. Mitral Valve The mitral valve is structurally normal. No prolapse or stenosis seen. Tricuspid Valve Normal tricuspid valve. Aortic Valve Trisinus/trileaflet aortic valve. Pulmonic Valve The pulmonic valve is not well visualized. Great Vessels Normal aortic root. Pericardium/Pleural No pericardial effusion. Medication Performed a rapid injection of agitated mix of 9 cc saline and 1cc air to assess for atrial septal defect. MMode/2D Measurements & Calculations LVIDd: 4.3 cm IVSd: 0.99 cm Ao root diam: 2.9 cm LVIDs: 2.7 cm LVPWd: 0.96 cm RVDd: 3.2 cm FS: 36.7 % LAV(MOD-bp): 20.7 ml LVAd ap4: 21.1 cm2 SV(MOD-sp4): 33.0 ml LAV(MOD-bp) Indexed: 10.9 ml/m2 LVLd ap4: 7.1 cm LAV(MOD-sp2): 17.6 ml EDV(MOD-sp4): 50.7 ml LAV(MOD-sp4): 18.3 ml EDV(sp4-el): 53.4 ml LVAs ap4: 11.2 cm2 LVLs ap4: 6.1 cm ESV(MOD-sp4): 17.7 ml ESV(sp4-el): 17.6 ml EF(MOD-sp4): 65.1 % EF(sp4-el): 67.1 % SV(sp4-el): 35.8 ml LA A4 area: 9.6 cm2 LA dimension(2D): 2.7 cm RA A4 area: 10.6 cm2 TAPSE: 2.0 cm Time Measurements MV dec time: 0.28 sec Doppler Measurements & Calculations MV E max kendall: 61.6 cm/sec Lat Peak E' Kendall: 11.1 cm/sec Med Peak E' Kendall: 7.6 cm/sec MV A max kendall: 65.8 cm/sec E/E' lat: 5.6 E/E' med: 8.1 MV E/A: 0.94 MV dec slope: 217.7 cm/sec2 Ao V2 max: 108.2 cm/sec LV V1 max: 87.8 cm/sec Ao max P.7 mmHg LV V1 max P.1 mmHg Ao V2 mean: 72.9 cm/sec Ao mean P.4 mmHg Ao V2 VTI: 21.4 cm PA V2 max: 56.7 cm/sec ECHO/Echo Complete Interpretation Summary The estimated ejection fraction is 55-60 %. Buble study not well visualized No rior study to compare Ordering Physician: Annmarie Al Referring Physician: Scott Mejia Performed By: Mirian Rubin, NAILACS, RVT
--- NOTE | 2023-10-12 16:42 | MRI_ITS ---
STUDY: MRI BRAIN WITHOUT CONTRAST REASON FOR EXAM: Male, 68 years old. Left side flaccid TECHNIQUE: Multiplanar multisequence imaging of the brain was performed without the administration of intravenous contrast. COMPARISON: Noncontrast head CT same date, brain MRI 08/13/2023 FINDINGS: The ventricles, cisterns, and sulci are prominent consistent with age-related volume loss. There is no restricted diffusion to suggest acute ischemia or infarction. No succeptibility artifict to suggest intracranial hemorrhage or mineralization. Major intracranial signal voids are preserved. There is stable mild high T2/FLAIR signal seen in the periventricular deep white matter. There is no midline shift, mass effect, or extra axial fluid collections are seen. No CP angle or IAC mass is seen. The orbits are unremarkable. The sella turcica and craniovertebral junction are within normal limits. The visualized paranasal sinuses are clear. The mastoid air cells are clear. MRI/Brain without Contrast IMPRESSION: Chronic microvascular ischemic changes. No intracranial hemorrhage, acute infarct, or space occupying lesion seen on this noncontrast MRI of the brain. Electronically Signed: Juan Diego Heller MD at 18:53 EST ,
[2023-10-12] MEDS: Aspirin 81 MG TAB.CHEW PO (18:54)
[2023-10-12] MEDS: Gabapentin 300 MG Capsule PO (20:23)
[2023-10-13] VITALS (7 sets, daily range): BP systolic 132–163; BP diastolic 92–104; PULSE 71–83; RESP 14–18; TEMP 36.4–36.8; O2SAT 93–95; BMI 24.1
[2023-10-13] MEDS: Acetaminophen 500 MG Tablet 1000 MG PO ×3 (05:07→20:13)
--- NOTE | 2023-10-13 06:30 | RAD_ITS ---
EXAM: XR CHEST, 1 VIEW CLINICAL INDICATION: Pneumothorax TECHNIQUE: Frontal view of the chest. COMPARISON: 10/12/2023. FINDINGS: LUNGS AND PLEURAL SPACES: Decreased patchy opacity right upper lobe. No effusion. No pneumothorax. HEART: Unremarkable. Cardiac silhouette not enlarged. MEDIASTINUM: Central airways and mediastinal contour are unremarkable. BONES/JOINTS: Unremarkable. No acute fracture. SOFT TISSUES: Unremarkable. TUBES, LINES AND DEVICES: Small caliber right-sided chest tube. RAD/Chest 1 View (Portable) IMPRESSION: 1. No pneumothorax. 2. Decreased patchy opacity right upper lobe. Electronically Signed: Kelvin Wang MD at 7:24 EST ,
[2023-10-13 06:41] LABS: Absolute Neutrophil Count 4.3 X10^3/uL (2.0-7.7); Basophil# 0.03 X10^3/uL; Basophil% 0.4 % (0-1); Eosinophil# 0.21 X10^3/uL; Eosinophils% 3.1 % (0-5); Hematocrit 43.9 % (40-54); Hemoglobin 14.5 g/dL (13.0-16.5); Lymphocyte % 22.3 % (19-41); Mean Corpuscular Hgb 30.7 pg (27.0-32.0); Mean Platelet Vol. 8.9 fl (6.2-12.0); Monocyte% 8.9 % (0-10); NRBC Flagged by Analyzer 0 % (0-5); Neutrophil # 4.29 X10^3/uL (2.7-7.7); Platelet Count 230 K/mm3 (150-450); RBC Distribution Width CV 13.2 % (11.6-14.6); RBC Distribution Width SD 45.3 fl (35.1-43.9); Red Blood Count 4.72 M/mm3 (4.6-6.2); White Blood Count 6.7 K/mm3 (4.4-11.0)
[2023-10-13 07:19] LABS: Anion Gap 3 (5-15); BUN 21 mg/dL (7-18); BUN/Creat Ratio 21.6 RATIO (10-20); Calcium,Total 8.9 mg/dL (8.5-10.1); Chloride 108 mmol/L (98-107); Cholesterol 160 mg/dL (200); Creatinine, Serum 0.97 mg/dL (0.70-1.30); EST Glomerular Filtration Rate 82 mL/min (>60); Est Glom Filt Rate - Afr Amer 99 mL/min (>60); Estimated Creatinine Clearance 71.87 ml/min; Glucose 104 mg/dL (74-106); High Density Lipoprotein 48 mg/dL; Potassium 3.8 mmol/L (3.5-5.1); Sodium Level 138 mmol/L (136-145); Thyroid Stim Hormone (TSH) 2.22 uIU/mL (0.358-3.74); Triglycerides 70 mg/dL; Very Low Density Lipoprotein 14 mg/dL (5-40)
--- NOTE | 2023-10-13 07:25 | CON.PCM.CC_ITS ---
Assessment & Plan Assessment/Plan (1) Iatrogenic pneumothorax: PLAN: Plan RECOMMENDATIONS: 1. Thoracic vent removed this morning. Obtain follow-up chest x-ray in 1 hour. 2. A follow-up chest imaging is stable, the patient can be discharged home and follow-up in the pulmonary medicine clinic as scheduled. IMPRESSIONS: 1. Iatrogenic pneumothorax The patient sustained an iatrogenic pneumothorax following CT-guided lung biopsy due to a PET positive pulmonary nodule in the right upper lobe. He underwent thoracic vent placement with subsequent resolution of the pneumothorax. The patient is stable from a respiratory perspective this morning. Therefore, the thoracic vent was removed. Recommend obtaining follow-up chest x-ray in approximately 1 hour. If stable, the patient can be discharged home with outpatient pulmonary follow-up as scheduled. This note was generated with [employer] software. It may contain incorrect words, spelling, and punctuation that were not noted in checking the note before signing. HPI Consult Data Date of Consult: 10/13/23 HPI Narrative Reason for Consultation: Iatrogenic pneumothorax HPI Narrative: The patient is a 68-year-old male, with a history as outlined below, who presented to the hospital on October [address]-guided lung biopsy. The patient had just been referred to the outpatient pulmonary office on September 26 for the evaluation of a pulmonary nodule. The patient underwent a low-dose CT screening in mid July 2023, which demonstrated a 9.6 mm nodule in the posterior aspect of the right upper lobe. The patient's primary care provider then ordered a follow-up CT scan in mid August 2023, which again confirmed a 9.6 mm nodule in the right upper lobe. He then went on to complete a PET scan, which was completed on September 18, 2023, which revealed increased uptake in the right upper lobe with an SUV of 3.1. The patient has an approximate [id number] smoking history and continues to smoke 0.5 packs of cigarettes per day. In addition to his personal smoking history, he did grow up in a smoking household. 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 Unfortunately, the patient developed an iatrogenic pneumothorax, which was medically managed with thoracic vent placement. Follow-up chest imaging demonstrated resolution of the noted pneumothorax. [facility] Home Medications aspirin 81 mg tablet,delayed release 81 mg PO DAILY 09/26/23 [History Last Taken 10/11/23] atorvastatin 40 mg tablet 40 mg PO DAILY 09/26/23 [History Last Taken 10/11/23] pantoprazole 40 mg tablet,delayed release 40 mg PO DAILY 09/26/23 [History Last Taken 10/12/23] gabapentin 300 mg capsule 300 mg PO QHS 10/11/23 [History Last Taken 10/11/23] Allergy/AdvReac Type Severity Reaction Status Date / Time No Known Allergies Allergy Unverified 09/26/23 08:43 Social History Smoking Status: Current every day smoker tobacco type: cigarettes second hand exposure: Yes ROS ROS Narrative 10 systems were reviewed with pertinent positives as noted in the HPI above. Physical Exam Const alert, oriented x3 and no apparent distress HEENT normocephalic, head/scalp atraumatic and moist oral mucous membranes Eyes PERRL, EOMs intact bilaterally and conjunctivae normal Neck supple General: trachea midline Chest inspection of chest normal Resp normal respiratory effort Resp Narrative: Right-sided thoracic vent in place. Auscultation: diminished lung sounds Cardio regular rate and regular rhythm GI normal to inspection, nondistended, normoactive bowel sounds Extremity no clubbing, cyanosis or edema Skin no rashes or lesions noted Neuro oriented x3, CN's II-XII intact bilaterally, moves all extremities and no focal motor deficits Psych cooperative and affect normal Lab / Micro Data 10/13/23 06:24 10/13/23 06:21 Labs: Laboratory Results - last 24 hr 10/12/23 10:15: WBC 8.1, RBC 5.13, Hgb 15.5, Hct 48.4, MCV 94.3 H, MCH 30.2, MCHC 32.0, RDW Std Deviation 45.5 H, RDW Coeff of Juliane 13.1, Plt Count 263, MPV 8.6, Immature Gran % (Auto) 1.500 H, Neut % (Auto) 62.0, Lymph % (Auto) 26.8, [place] % (Auto) 6.9, Eos % (Auto) 1.7, Baso % (Auto) 1.1 H, Absolute Neuts (auto) 5.0, Absolute Lymphs (auto) 2.18, Nucleated RBC % 0, Sodium 142, Potassium 4.7, Chloride 109 H, Carbon Dioxide 28.0, Anion Gap 5, BUN 19 H, Creatinine 1.06, Estim Creat Clear Calc 0.00, Est GFR (MDRD) Af Amer 89, Est GFR (MDRD) Non-Af 74, BUN/Creatinine Ratio 17.9, Glucose 113 H, Calcium 8.8 10/12/23 15:39: POC Glucose 149 H 10/13/23 06:21: Sodium 138, Potassium 3.8, Chloride 108 H, Carbon Dioxide 27.0, Anion Gap 3 L, BUN 21 H, Creatinine 0.97, Estim Creat Clear Calc 71.87, Est GFR (MDRD) Af Amer 99, Est GFR (MDRD) Non-Af 82, BUN/Creatinine Ratio 21.6 H, Glucose 104, Calcium 8.9, Triglycerides 70, Cholesterol 160, LDL Cholesterol 98, VLDL Cholesterol 14, HDL Cholesterol 48, TSH 2.22 10/13/23 06:24: WBC 6.7, RBC 4.72, Hgb 14.5, Hct 43.9, MCV 93.0, MCH 30.7, MCHC 33.0, RDW Std Deviation 45.3 H, RDW Coeff of Juliane 13.2, Plt Count 230, MPV 8.9, Immature Gran % (Auto) 1.300 H, Neut % (Auto) 64.0, Lymph % (Auto) 22.3, [place] % (Auto) 8.9, Eos % (Auto) 3.1, Baso % (Auto) 0.4, Absolute Neuts (auto) 4.3, Absolute Lymphs (auto) 1.50, Nucleated RBC % 0 Rhythm Strip Rhythm Strip: Sinus Rhythm Rate: 55 Ectopy: None Imagaing Radiology Impression Chest X-Ray 10/12/23 10:25 IMPRESSION: Markedly improved to almost resolved right apical pneumothorax. Electronically Signed: Boogie Gallardo MD at 10:48 EST , Brain CT 10/12/23 15:40 IMPRESSION: No acute intracranial findings. Electronically Signed: Juan Diego Heller MD at 16:13 EST , ADDENDUM: 10/12/23 1631 IMPRESSION: No acute intracranial findings. N.B. : The above Results were Read Back by Juan Diego Heller MD to Annmarie Al MD, and understanding confirmed on 10/12/2023 16:24:32 (ET). Electronically Signed: Juan Diego Heller MD at 16:13 EST , Head/Neck CTA 10/12/23 15:54 IMPRESSION: Negative CTA Head and Neck. Right apical infiltrate with small pneumothorax. Electronically Signed: Juan Diego Heller MD at 16:26 EST , ADDENDUM: 10/12/23 1640 IMPRESSION: undefined Brain MRI 10/12/23 16:42 IMPRESSION: Chronic microvascular ischemic changes. No intracranial hemorrhage, acute infarct, or space occupying lesion seen on this noncontrast MRI of the brain. Electronically Signed: Juan Diego Heller MD at 18:53 EST , Chest X-Ray 10/13/23 06:30 IMPRESSION: 1. No pneumothorax. 2. Decreased patchy opacity right upper lobe. Electronically Signed: eKlvin Wang MD at 7:24 EST , Charges/Coding Visit Charges Inpatient E&M: 34815 Init Hosp L3
[2023-10-13 07:41] LABS: Hemoglobin A1c 5.8 % (3.8-5.6)
--- NOTE | 2023-10-13 08:00 | RAD_ITS ---
EXAM: XR CHEST, 1 VIEW CLINICAL INDICATION: Chest tube removed TECHNIQUE: Frontal view of the chest. COMPARISON: XR Chest dated 10/13/2023 FINDINGS: LUNGS AND PLEURAL SPACES: No evidence of residual or recurrent pneumothorax. Residual mild airspace opacification right upper lobe which may represent residual atelectasis or pneumonia. HEART: Normal heart size. MEDIASTINUM: No mediastinal or hilar mass. BONES/JOINTS: No acute abnormality. TUBES, LINES AND DEVICES: Small-caliber right chest tube has been removed. RAD/Chest 1 View (Portable) IMPRESSION: No evidence of pneumothorax. Residual pneumonia/atelectasis right upper lobe. Electronically Signed: Cyrus Hartmann MD at 8:24 EST ,
[2023-10-13] MEDS: Pantoprazole Sodium 40 MG Tablet PO (09:34)
[2023-10-13] MEDS: Clopidogrel Bisulfate 300 MG Tablet 150 MG PO (09:34)
[2023-10-13] MEDS: Aspirin 81 MG TAB.CHEW PO (09:34)
--- NOTE | 2023-10-13 10:54 | PCM.PN.HOSP ---
Reason for Visit Reason for Visit: Diagnoses Nicotine dependence, cigarettes, uncomplicated (10/12/23) Chronic obstructive pulmonary disease, unspecified (10/12/23) Postprocedural pneumothorax (10/12/23) Gastro-esophageal reflux disease without esophagitis (10/12/23) Solitary pulmonary nodule (10/12/23) Subjective Subjective Patient's movement is improving however still has difficulties with balance and still has left upper extremity weakness specifically hand weakness albeit better than yesterday, breathing doing well even after chest tube discontinued Objective Data Objective Data Vital Signs: Vital Signs Temp Pulse Resp BP Pulse Ox O2 Del Method O2 Flow Rate 98.2 F 73 18 138/97 H 95 Nasal Cannula 1 10/13/23 09:30 10/13/23 09:30 10/13/23 09:30 10/13/23 09:30 10/13/23 09:30 10/13/23 09:30 10/13/23 09:53 Oxygen Flow Rate (L/min) 1 Oxygen Delivery Method Nasal Cannula Weight: 74.2 kg Body Mass Index (BMI) 24.1 Intake & Output: Intake and Output for Last 24 Hours 10/11/23 10/12/23 10/13/23 23:59 23:59 23:59 Intake Total 200 / 320 360 / 360 Output Total 0 / 0 300 / 300 Balance 200 / 320 60 / 60 Lab / Micro Data 10/13/23 06:24 10/13/23 06:21 Labs: Laboratory Results - last 24 hr 10/12/23 15:39: POC Glucose 149 H 10/13/23 06:21: Sodium 138, Potassium 3.8, Chloride 108 H, Carbon Dioxide 27.0, Anion Gap 3 L, BUN 21 H, Creatinine 0.97, Estim Creat Clear Calc 71.87, Est GFR (MDRD) Af Amer 99, Est GFR (MDRD) Non-Af 82, BUN/Creatinine Ratio 21.6 H, Glucose 104, Hemoglobin A1c 5.8 H, Calcium 8.9, Triglycerides 70, Cholesterol 160, LDL Cholesterol 98, VLDL Cholesterol 14, HDL Cholesterol 48, TSH 2.22 10/13/23 06:24: WBC 6.7, RBC 4.72, Hgb 14.5, Hct 43.9, MCV 93.0, MCH 30.7, MCHC 33.0, RDW Std Deviation 45.3 H, RDW Coeff of Juliane 13.2, Plt Count 230, MPV 8.9, Immature Gran % (Auto) 1.300 H, Neut % (Auto) 64.0, Lymph % (Auto) 22.3, [place] % (Auto) 8.9, Eos % (Auto) 3.1, Baso % (Auto) 0.4, Absolute Neuts (auto) 4.3, Absolute Lymphs (auto) 1.50, Nucleated RBC % 0 Radiography Diagnostic Testing: Radiology Impression Brain CT 10/12/23 15:40 IMPRESSION: No acute intracranial findings. Electronically Signed: Juan Diego Heller MD at 16:13 EST , ADDENDUM: 10/12/23 1631 IMPRESSION: No acute intracranial findings. N.B. : The above Results were Read Back by Juan Diego Heller MD to Annmarie Al MD, and understanding confirmed on 10/12/2023 16:24:32 (ET). Electronically Signed: Juan Diego Heller MD at 16:13 EST , Head/Neck CTA 10/12/23 15:54 IMPRESSION: Negative CTA Head and Neck. Right apical infiltrate with small pneumothorax. Electronically Signed: Juan Diego Helelr MD at 16:26 EST , ADDENDUM: 10/12/23 1640 IMPRESSION: undefined Brain MRI 10/12/23 16:42 IMPRESSION: Chronic microvascular ischemic changes. No intracranial hemorrhage, acute infarct, or space occupying lesion seen on this noncontrast MRI of the brain. Electronically Signed: Juan Diego Heller MD at 18:53 EST , Chest X-Ray 10/13/23 06:30 IMPRESSION: 1. No pneumothorax. 2. Decreased patchy opacity right upper lobe. Electronically Signed: Kelvin Wang MD at 7:24 EST , Chest X-Ray 10/13/23 08:00 IMPRESSION: No evidence of pneumothorax. Residual pneumonia/atelectasis right upper lobe. Electronically Signed: Cyrus Hartmann MD at 8:24 EST , Rhythm Strip Rhythm Strip: Sinus Rhythm Rate: 55 Ectopy: None Physical Exam Narrative General: Alert, oriented, no apparent distress HEENT: Atraumatic, normocephalic Eyes: Anicteric, normal conjunctiva, extraocular movements grossly intact Neck: Supple Respiratory: Scattered wheezes on right, normal respiratory effort Cardiovascular: Regular rate and rhythm GI: Soft, nontender, nondistended Extremities: No edema Musculoskeletal: Bilateral lower extremities 5 out of 5, patient significantly weaker however in left upper extremity compared to right especially with handgrip Neuro: Weakness of left upper extremity compared to right Skin: No rashes appreciated Psych: Cooperative Assessment & Plan Assessment/Plan (1) Iatrogenic pneumothorax: (2) Lung nodule: (3) Nicotine dependence, cigarettes, uncomplicated: (4) COPD (chronic obstructive pulmonary disease): (5) GERD (gastroesophageal reflux disease): PLAN: Plan # Stroke rule out -Patient had stroke call [phone] with last known well 1230 at time of assessment to the floor. NIH of 9, patient unable to move left arm and has left-sided visual field defect, taken to CAT scan and CT and CTA obtained which were negative. Patient evaluated by stroke neurologist and stroke neurologist discussed with proceduralist who did biopsy and chest tube and given bleeding with the biopsy it was felt risks of bleeding were too high to proceed with TNK, stroke neurologist discussed with family and patient. It was advised that patient be given 81 mg of aspirin today and tomorrow loaded with 150 of Plavix followed by DAPT for 21 days and then aspirin indefinitely, monitor on telemetry and high intensity statin, lipid panel and A1c in the a.m., permissive hypertension [facility]. If no A-fib or other source found it is recommended the patient have monitor car operator on DC. Stroke order set entered. All questions answered -10/13: MRI read out as negative however left upper extremity still weaker than right (though is improving) and patient with balance difficulty necessitating max assist with 2 for mobility and ADLs, echo pending, patient has been normal sinus rhythm on telemetry, awaiting neurology reevaluation given symptoms and imaging discordance. Patient was on aspirin yesterday and had been started on Plavix today #Iatrogenic pneumothorax on right s/p chest tube -During lung biopsy, immediately identified and brought to ED w/ chest tube placed -Pulm c/s -CXR w/ resolution of pneumothorax with tube placement and air removeal -Pain control -I/s -10/13: Chest tube removed, patient breathing well, to have repeat chest x-ray #Lung mass -Follows w/ pulm on outpt basis #GERD -Continue PPI #Tobacco use -Advise cessation -Patient refuses nicotine replacement #DVT ppx: SCDs Annmarie Al MD Time spent in the patient's overall evaluation,decision-making process, review of diagnostic data, adjustment of management, discussion with other providers, nursing nursing and ancillary staff involved in patient's care documentation, 45 minutes Charges/Coding Visit Charges Inpatient E&M: 43999 Subs Hosp L2
--- NOTE | 2023-10-13 11:05 | CASEMGMT ---
RN CM Face to Face with patient for initial transition planning/care coordination assessment. RN CM introduced self and role at [facility]. Patient lying in bed, alert and oriented. Patient willing to participate in assessment and is able to answer all questions appropriately. Care providers, pharmacy, and demographics verified. Patient wishes to discharge home. Therapy reviewed and patient requiring assittance x2. Discuss possible SNF at discharge. A list of SNF providers including quality and resource use data and consistent with the patient?s preferred geographical region, medical needs, and insurance network were provided from the [employer] Guide. Patient to review list and provide preferences. Patient states he has no further needs or concerns at this time. CM to follow for discharge planning needs that may arise. PCP: Roberto Specialists: chaz Fischer; Héctor, mushtaq, Tony, RA Preferred Pharmacy: [facility] Insurance: [employer] [facility] Prescription Benefit: yes Living Will/HPOA: none LNOK: Living Arrangements: Patient lives with and sons in a single story home with 2 steps to enter the home. Patient was independent Transportation: self, DME/HHC: Patient denies DME in the home. No previous HHC or SNF Disposition Plan: TBD, anticipate SNF at discharge. Anali COE, RN, CM
--- NOTE | 2023-10-13 12:13 | CON.PCM.NE_ITS ---
Assessment and Plan: Stroke Assessment/Plan EVON CUEVAS Jr. is a 68 M with a history of HTN, HLD, CAD who presents for evaluation of left sided weakness following a lung biopsy. Neurological examination shows Left sided weakness that is improving. Neuroimaging shows CT head: Negative, CTA: No LVO, MRI Brain: No acute stroke. Hba1C :5.8, LDL: 98. Suspect clinical stroke although MRI negative of cryptogenic in etiology Recommend Continue ASA, Plavix for 3 weeks then ASA alone Statin to keep LDL <70 recommend Echo. 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 Debbie Morrell HPI Consult Data Date of Consult: 10/13/23 HPI Narrative HPI Narrative: EVON CUEVAS, is a 68 M who presents COPD, GERD, HLD, Lung mass, smoking who presents for evaluation of left sided weakness following a lung biopsy. This was complicated by syncope and phenumothora which required a chest tube placement. Stroke code called at 1537 with last known well 1230 at time of assessment. He was noticed to have an NIH of 9, patient unable to move left arm and has left- sided visual field defect, taken to CAT scan and CT and CTA obtained which were negative. Given the risk of bleeding was too high to proceed with TNK, this was deferred. It was advised that patient be given 81 mg of aspirin today and loaded with 150 of Plavix (from 1/200 followed by DAPT for 21 days and then aspirin indefinitely. He is feeling better but his left hand still remains weak. [facility] Home Medications aspirin 81 mg tablet,delayed release 81 mg PO DAILY 09/26/23 [History Last Taken 10/11/23] atorvastatin 40 mg tablet 40 mg PO DAILY 09/26/23 [History Last Taken 10/11/23] pantoprazole 40 mg tablet,delayed release 40 mg PO DAILY 09/26/23 [History Last Taken 10/12/23] gabapentin 300 mg capsule 300 mg PO QHS 10/11/23 [History Last Taken 10/11/23] Allergy/AdvReac Type Severity Reaction Status Date / Time No Known Allergies Allergy Unverified 09/26/23 08:43 Social History Smoking Status: Current every day smoker tobacco type: cigarettes second hand exposure: Yes Vital Signs Vital Signs Vital Signs: 10/12/23 12:42 10/12/23 15:37 10/12/23 12:30 Temperature 97.8 F 97.7 F L Temperature Source Temporal Oral Pulse Rate 83 96 Pulse Strength Respiratory Rate 28 H 18 Respiratory Effort Respiratory Depth Shallow Respiratory Pattern Normal Blood Pressure 149/101 H 142/88 H Blood Pressure Mean 117 106 Blood Pressure Source Monitor Blood Pressure Position Semi-Fowlers Blood Pressure Location Left Arm Pulse Ox 97 96 Oxygen Delivery Method Nasal Cannula Nasal Cannula Nasal Cannula Oxygen Flow Rate (L/min) 2 2 10/12/23 18:00 10/12/23 16:00 10/12/23 19:27 Temperature Temperature Source Pulse Rate 82 Pulse Strength Respiratory Rate 22 H Respiratory Effort Respiratory Depth Shallow Respiratory Pattern Normal Blood Pressure 135/91 H Blood Pressure Mean 105 Blood Pressure Source Blood Pressure Position Blood Pressure Location Pulse Ox 96 96 Oxygen Delivery Method Nasal Cannula Nasal Cannula Nasal Cannula Oxygen Flow Rate (L/min) 2 2 1.5 10/12/23 19:27 10/12/23 21:30 10/12/23 21:44 Temperature 97.4 F L Temperature Source Temporal Pulse Rate 74 Pulse Strength Respiratory Rate 17 17 Respiratory Effort Normal Normal Non-Labored Respiratory Depth Normal Normal Respiratory Pattern Normal Normal Blood Pressure 118/78 Blood Pressure Mean 91 Blood Pressure Source Monitor Blood Pressure Position Supine Blood Pressure Location Left Arm Pulse Ox 96 95 Oxygen Delivery Method Nasal Cannula Room Air Nasal Cannula Oxygen Flow Rate (L/min) 1.5 1.5 10/13/23 01:30 10/13/23 05:30 10/13/23 07:25 Temperature 97.9 F 97.9 F Temperature Source Temporal Temporal Pulse Rate 71 78 Pulse Strength Respiratory Rate 18 14 Respiratory Effort Respiratory Depth Respiratory Pattern Blood Pressure 140/96 H 152/92 H Blood Pressure Mean 110 112 Blood Pressure Source Monitor Monitor Blood Pressure Position Supine Supine Blood Pressure Location Right Arm Right Arm Pulse Ox 94 94 94 Oxygen Delivery Method Room Air Room Air Nasal Cannula Oxygen Flow Rate (L/min) 1 10/13/23 09:30 10/13/23 09:53 10/13/23 09:30 Temperature 98.2 F Temperature Source Oral Pulse Rate 73 Pulse Strength Normal (2+) Respiratory Rate 18 Respiratory Effort Respiratory Depth Respiratory Pattern Blood Pressure 138/97 H Blood Pressure Mean 110 Blood Pressure Source Monitor Blood Pressure Position Semi-Fowlers Blood Pressure Location Left Arm Pulse Ox 95 Oxygen Delivery Method Nasal Cannula Oxygen Flow Rate (L/min) 1 1 10/13/23 09:30 10/13/23 12:01 Temperature 98.2 F Temperature Source Oral Pulse Rate 83 Pulse Strength Respiratory Rate 16 Respiratory Effort Normal Non-Labored Respiratory Depth Normal Respiratory Pattern Normal Blood Pressure 163/96 H Blood Pressure Mean 118 Blood Pressure Source Monitor Blood Pressure Position Semi-Fowlers Blood Pressure Location Right Arm Pulse Ox 95 93 Oxygen Delivery Method Nasal Cannula Room Air Oxygen Flow Rate (L/min) 1 Weight Weight: 74.2 kg Body Mass Index (BMI) 24.1 EEG Results Procedure Details EEG Procedure Details: EVON CUEVAS is a 68 year old M with a past medical history of , who presents for evaluation of Electroencephalogram on DATE at TIME NIHSS NIHSS Nursing Documentation NIHSS Nursing Documentation: NIHSS: Ischemic Stroke/TIA Start: 10/12/23 16:37 Text: For PCU Patients: NIH and Neuro Check every 4 Status: Active hours and PRN Freq: [id number] Protocol: Activity Type Activity Date Activity User E-sign Co-sign Detail Recorded Client Recorded Date Recorded By Document 10/13/23 12:00 Desktop 10/13/23 12:00 HS 10/13/23 12:00 NIH Stroke Scale [NIHSS] A score of 0 is normal or asymptomatic . Total possible score is 42. Inpatient: RN or Physician to activate a stroke alert for onset of new stroke symptoms or with NIHSS increase >/= 3 points. Following change in neurological status, NIHSS will be performed per physician order or more frequently PRN. -1a. Level of Consciousness Alert; keenly responsive -1b. LOC Questions Answers BOTH questions correctly. -1c. LOC Commands Performs both tasks correctly . -2. Best Gaze Normal -3. Visual No visual loss -4. Facial Palsy Normal symmetrical movements -5a. Left Arm Drift; arm drifts downward but doesn?t hit the bed -5b. Right Arm No drift; arm holds 90 (or 45 ) degrees for full 10 seconds -6a. Left Leg Drift; leg falls by the end of 5- seconds, but does not hit bed -6b. Right Leg No drift; leg holds 30-degree position for full 5 seconds -7. Limb Ataxia Absent -8. Sensory Normal; no sensory loss -9. Best Language No aphasia; normal -10. Dysarthria Normal -11. Extinction and Inattention No abnormality -Total 2 Query Text:A score of 0 is normal or asymptomatic. Total possible score is 42 . ED: Notify Physician for NIHSS increase by > / = 3 points. Inpatient: RN or Physician to activate a stroke alert for NIHSS increase of > / = 3 points. Coma Scale [Assess] -Eye Opening Spontaneous -Motor Obeys Commands -Verbal Oriented [Total] -Coma Scale Total 15 NIHSS 1a. Level of Consciousness: Alert; keenly responsive 1b. LOC Questions: Answers BOTH questions correctly. 1c. LOC Commands: Performs both tasks correctly. 2. Best Gaze: Normal 3. Visual: No visual loss 4. Facial Palsy: Normal symmetrical movements 5a. Left Arm: Drift; arm drifts downward but doesn?t hit the bed 5b. Right Arm: No drift; arm holds 90 (or 45) degrees for full 10 seconds 6a. Left Leg: Drift; leg falls by the end of 5-seconds, but does not hit bed 6b. Right Leg: No drift; leg holds 30-degree position for full 5 seconds 7. Limb Ataxia: Absent 8. Sensory: Normal; no sensory loss 9. Best Language: No aphasia; normal 10. Dysarthria: Normal 11. Extinction and Inattention: No abnormality Total: 2 Stroke Questions a.Reviewed Inclusion/Exclusion criteria: Yes Was Patient considered for Endovascular Intervention?: No IV Thrombolytic Administered: No No contraindications from thrombolytic administration: No Risks, Benefits, Alternatives Discussed: Yes Not given: Patient refusal: Yes Physical Exam HEENT Head and Scalp: normal to inspection, normocephalic and atraumatic Eyes EOMs intact bilaterally Neck no JVD Resp normal respiratory effort Cardio no JVD GI normal to inspection, nondistended, normoactive bowel sounds Extremity normal to inspection Neuro Neuro Narrative: Awake, alert, oriented X3 Speech fluent no dysarthria Cranial nerves 2-12 intact Left hemiparesis Sensation intact No ataxia Lab / Micro Data 10/13/23 06:24 10/13/23 06:21 Labs: Laboratory Results - last 24 hr 10/12/23 15:39: POC Glucose 149 H 10/13/23 06:21: Sodium 138, Potassium 3.8, Chloride 108 H, Carbon Dioxide 27.0, Anion Gap 3 L, BUN 21 H, Creatinine 0.97, Estim Creat Clear Calc 71.87, Est GFR (MDRD) Af Amer 99, Est GFR (MDRD) Non-Af 82, BUN/Creatinine Ratio 21.6 H, Glucose 104, Hemoglobin A1c 5.8 H, Calcium 8.9, Triglycerides 70, Cholesterol 160, LDL Cholesterol 98, VLDL Cholesterol 14, HDL Cholesterol 48, TSH 2.22 10/13/23 06:24: WBC 6.7, RBC 4.72, Hgb 14.5, Hct 43.9, MCV 93.0, MCH 30.7, MCHC 33.0, RDW Std Deviation 45.3 H, RDW Coeff of Juliane 13.2, Plt Count 230, MPV 8.9, Immature Gran % (Auto) 1.300 H, Neut % (Auto) 64.0, Lymph % (Auto) 22.3, [place] % (Auto) 8.9, Eos % (Auto) 3.1, Baso % (Auto) 0.4, Absolute Neuts (auto) 4.3, Absolute Lymphs (auto) 1.50, Nucleated RBC % 0 Rhythm Strip Rhythm Strip: Sinus Rhythm Rate: 55 Ectopy: None Imagaing Radiology Impression Brain CT 10/12/23 15:40 IMPRESSION: No acute intracranial findings. Electronically Signed: Juan Diego Heller MD at 16:13 EST , ADDENDUM: 10/12/23 1631 IMPRESSION: No acute intracranial findings. N.B. : The above Results were Read Back by Juan Diego Heller MD to Annmarie Al MD, and understanding confirmed on 10/12/2023 16:24:32 (ET). Electronically Signed: Juan Diego Heller MD at 16:13 EST , Head/Neck CTA 10/12/23 15:54 IMPRESSION: Negative CTA Head and Neck. Right apical infiltrate with small pneumothorax. Electronically Signed: Juan Diego Heller MD at 16:26 EST , ADDENDUM: 10/12/23 1640 IMPRESSION: undefined Brain MRI 10/12/23 16:42 IMPRESSION: Chronic microvascular ischemic changes. No intracranial hemorrhage, acute infarct, or space occupying lesion seen on this noncontrast MRI of the brain. Electronically Signed: Juan Diego Heller MD at 18:53 EST , Chest X-Ray 10/13/23 06:30 IMPRESSION: 1. No pneumothorax. 2. Decreased patchy opacity right upper lobe. Electronically Signed: Kelvin Wang MD at 7:24 EST , Chest X-Ray 10/13/23 08:00 IMPRESSION: No evidence of pneumothorax. Residual pneumonia/atelectasis right upper lobe. Electronically Signed: Cyrus Hartmann MD at 8:24 EST , Active Medications Active Medications Active Medications: Current Medications Generic Name Dose Route Start Last Admin Trade Name Freq PRN Reason Stop Dose Admin Acetaminophen 1,000 mg 10/12/23 14:00 10/13/23 05:07 Acetaminophen 500 Mg Tablet PO 1,000 mg Q8 ANDERS Administration Albuterol Sulfate 2.5 mg 10/12/23 12:16 Albuterol 2.5 Mg/3 Ml Vial.Neb. INHALATION Q2H PRN PRN SOB/Wheezing Aspirin 81 mg 10/12/23 17:00 10/13/23 09:34 Aspirin 81 Mg Tab.Chew PO 81 mg BREAKFAST [facility] Administration Atorvastatin Calcium 80 mg 10/13/23 22:00 Atorvastatin Calcium 80 Mg Tablet PO QHS [facility] Clopidogrel Bisulfate 75 mg 10/14/23 10:00 Clopidogrel Bisulfate 75 Mg Tablet PO DAILY [facility] Gabapentin 300 mg 10/12/23 22:00 10/12/23 20:23 Gabapentin 300 Mg Capsule PO 300 mg QHS [facility] Administration Hydralazine HCl 5 mg 10/12/23 16:36 Hydralazine 20 Mg/Ml Vial IV Q30M PRN to maintain BP goals Sodium Chloride 250 mls @ 15 mls/hr 10/12/23 12:38 IV .[id number] PRN Additional IVPB Infusion Sodium Chloride 250 mls @ 15 mls/hr 10/12/23 12:38 IV .[id number] PRN Saline Flush Iopamidol 0 ml 10/12/23 16:00 10/13/23 11:41 Contrast Allergy Safety Check IV Not Given X1 [facility] Labetalol HCl 10 - 20 mg 10/12/23 16:36 Labetalol (Prefilled) 20 Mg/4 Ml IV Q10M PRN PRN to Maintain BP Goals Melatonin 3 mg 10/12/23 12:16 Melatonin 3 Mg Tablet PO QHS PRN PRN INSOMNIA Morphine Sulfate 2 mg 10/12/23 12:16 10/12/23 12:34 Morphine 2 Mg/Ml Syringe IV 2 mg Q3H PRN PRN Administration Pain Score 6-10 Ondansetron HCl 4 mg 10/12/23 12:16 Ondansetron 4 Mg/2 Ml Vial IV Q8H PRN PRN NAUSEA/VOMITING Oxycodone HCl 5 mg 10/12/23 12:16 10/12/23 15:10 Oxycodone 5 Mg Tablet PO 5 mg Q4H PRN PRN Administration Pain Score 4-10 Pantoprazole Sodium 40 mg 10/13/23 10:00 10/13/23 09:34 Pantoprazole Sodium 40 Mg Tablet PO 40 mg DAILY [facility] Administration Senna/Docusate Sodium 2 tablet 10/12/23 12:16 Senna/Docusate Sodium 1 Tablet PO BID PRN PRN Constipation Sodium Chloride 10 - 40 ml 10/12/23 12:38 0.9% Saline Lock 10 Ml Syringe IV UD PRN SALINE FLUSH
--- NOTE | 2023-10-13 12:33 | CASEMGMT ---
Social Work PHQ-9 not completed as pt was negative for stroke. KEELEY Hurtado
--- NOTE | 2023-10-13 15:46 | CASEMGMT ---
Social Work As per admitting RN, pt does not have LW/POA, declined further information. KEELEY Hurtado
[2023-10-13] MEDS: Atorvastatin Calcium 80 MG Tablet PO (20:13)
[2023-10-13] MEDS: Gabapentin 300 MG Capsule PO (20:13)
[2023-10-14] VITALS (8 sets, daily range): BP systolic 152–176; BP diastolic 92–103; PULSE 70–84; RESP 16–18; TEMP 36.4–36.8; O2SAT 93–96; BMI 24.1
[2023-10-14] MEDS: Acetaminophen 500 MG Tablet 1000 MG PO ×3 (05:58→20:05)
[2023-10-14 06:17] LABS: Absolute Lymphocyte Count 1.39 X10^3/uL (0.83-4.51); Absolute Neutrophil Count 3.7 X10^3/uL (2.0-7.7); Basophil# 0.06 X10^3/uL; Eosinophil# 0.24 X10^3/uL; Hematocrit 42.6 % (40-54); Hemoglobin 14.4 g/dL (13.0-16.5); Lymphocyte # 1.39 X10^3/ul (0.83-4.51); Lymphocyte % 23.2 % (19-41); Mean Corp Hgb Conc 33.8 g/dL (32-36); Mean Corpuscular Hgb 30.8 pg (27.0-32.0); Mean Corpuscular Volume 91.2 fL (80-94); Monocyte# 0.59 X10^3/uL; Monocyte% 9.8 % (0-10); NRBC Flagged by Analyzer 0 % (0-5); Neutrophil # 3.66 X10^3/uL (2.7-7.7); Neutrophil % 61.2 % (47-70); Platelet Count 222 K/mm3 (150-450); RBC Distribution Width CV 13.1 % (11.6-14.6); RBC Distribution Width SD 43.1 fl (35.1-43.9); Red Blood Count 4.67 M/mm3 (4.6-6.2)
[2023-10-14 06:26] LABS: Anion Gap 4 (5-15); BUN 21 mg/dL (7-18); BUN/Creat Ratio 24.5 RATIO (10-20); Calcium,Total 8.7 mg/dL (8.5-10.1); Chloride 108 mmol/L (98-107); Creatinine, Serum 0.86 mg/dL (0.70-1.30); EST Glomerular Filtration Rate 94 mL/min (>60); Est Glom Filt Rate - Afr Amer 114 mL/min (>60); Estimated Creatinine Clearance 81.07 ml/min; Glucose 86 mg/dL (74-106); Potassium 3.8 mmol/L (3.5-5.1); Sodium Level 138 mmol/L (136-145)
--- NOTE | 2023-10-14 08:02 | PN.HOSP_ITS ---
Reason for Visit Reason for Visit: Diagnoses Nicotine dependence, cigarettes, uncomplicated (10/13/23) Chronic obstructive pulmonary disease, unspecified (10/13/23) Postprocedural pneumothorax (10/13/23) Gastro-esophageal reflux disease without esophagitis (10/13/23) Solitary pulmonary nodule (10/13/23) Subjective Subjective Strengthen hand continues to improve, breathing stable Objective Data Objective Data Vital Signs: Vital Signs Temp Pulse Resp BP Pulse Ox O2 Del Method O2 Flow Rate 97.7 F L 84 18 158/99 H 93 Room Air 1 10/14/23 04:00 10/14/23 04:00 10/14/23 04:00 10/14/23 04:00 10/14/23 04:00 10/14/23 04:00 10/13/23 09:53 Oxygen Flow Rate (L/min) 1 Oxygen Delivery Method Room Air Weight: 74.2 kg Body Mass Index (BMI) 24.1 Intake & Output: Intake and Output for Last 24 Hours 10/12/23 10/13/23 10/14/23 23:59 23:59 23:59 Intake Total 200 / 320 1180 / 1180 Output Total 0 / 0 1500 / 1500 900 / 900 Balance 200 / 320 -320 / -320 -900 / -900 Lab / Micro Data 10/14/23 05:38 10/14/23 05:38 Labs: Laboratory Results - last 24 hr 10/14/23 05:38: WBC 6.0, RBC 4.67, Hgb 14.4, Hct 42.6, MCV 91.2, MCH 30.8, MCHC 33.8, RDW Std Deviation 43.1, RDW Coeff of Juliane 13.1, Plt Count 222, MPV 9.0, Immature Gran % (Auto) 0.800, Neut % (Auto) 61.2, Lymph % (Auto) 23.2, [place] % (Auto) 9.8, Eos % (Auto) 4.0, Baso % (Auto) 1.0, Absolute Neuts (auto) 3.7, Absolute Lymphs (auto) 1.39, Nucleated RBC % 0, Sodium 138, Potassium 3.8, Chloride 108 H, Carbon Dioxide 26.0, Anion Gap 4 L, BUN 21 H, Creatinine 0.86, Estim Creat Clear Calc 81.07, Est GFR (MDRD) Af Amer 114, Est GFR (MDRD) Non-Af 94, BUN/Creatinine Ratio 24.5 H, Glucose 86, Calcium 8.7 Radiography Diagnostic Testing: Radiology Impression Echocardiogram 10/12/23 16:42 Interpretation Summary The estimated ejection fraction is 55-60 %. Buble study not well visualized No rior study to compare Ordering Physician: Annmarie Al Referring Physician: Scott Mejia Performed By: Mirian Rubin, SAM, RVT Chest X-Ray 10/13/23 08:00 IMPRESSION: No evidence of pneumothorax. Residual pneumonia/atelectasis right upper lobe. Electronically Signed: Cyrus Hartmann MD at 8:24 EST , Rhythm Strip Rhythm Strip: Sinus Rhythm Rate: 55 Ectopy: None Physical Exam Narrative General: Alert, oriented, no apparent distress HEENT: Atraumatic, normocephalic Eyes: Anicteric, normal conjunctiva, extraocular movements grossly intact Neck: Supple Respiratory: Scattered wheezes on right, normal respiratory effort Cardiovascular: Regular rate and rhythm GI: Soft, nontender, nondistended Extremities: No edema Musculoskeletal: Bilateral lower extremities 5 out of 5, right upper extremity 5 out of 5, left upper extremity 4+/5 Neuro: Weakness of left upper extremity compared to right Skin: No rashes appreciated Psych: Cooperative Assessment & Plan Assessment/Plan (1) Iatrogenic pneumothorax: (2) Lung nodule: (3) Nicotine dependence, cigarettes, uncomplicated: (4) COPD (chronic obstructive pulmonary disease): (5) GERD (gastroesophageal reflux disease): PLAN: Plan # Cryptogenic CVA -Patient had stroke call 1537 with last known well 1230 at time of assessment to the floor. NIH of 9, patient unable to move left arm and has left-sided visual field defect, taken to CAT scan and CT and CTA obtained which were negative. Patient evaluated by stroke neurologist and stroke neurologist discussed with proceduralist who did biopsy and chest tube and given bleeding with the biopsy it was felt risks of bleeding were too high to proceed with TNK, stroke neurologist discussed with family and patient. It was advised that patient be given 81 mg of aspirin today and tomorrow loaded with 150 of Plavix followed by DAPT for 21 days and then aspirin indefinitely, monitor on telemetry and high intensity statin, lipid panel and A1c in the a.m., permissive hypertension NIH. If no A-fib or other source found it is recommended the patient have cardiac rehabilitation specialist on DC. Stroke order set entered. All questions answered -10/13: MRI read out as negative however left upper extremity still weaker than right (though is improving) and patient with balance difficulty necessitating max assist with 2 for mobility and ADLs, echo pending, patient has been normal sinus rhythm on telemetry, awaiting neurology reevaluation given symptoms and imaging discordance. Patient was on aspirin yesterday and had been started on Plavix today -10/14: Reevaluated by neurology, still suspected that this was cryptogenic stroke, patient still with decreased movement in left hand, though this continues to improve, and balance difficulties, will need placement, continue aspirin and Plavix as DAPT for 21 days then aspirin indefinitely, is on telemetr y no A-fib yet or other source so will need Holter on discharge, echo performed but not well-visualized, discussed with neurology and it was advised the 30-day monitor on discharge but no need to pursue KATI at this time and no need for repeat MRI at this time #Iatrogenic pneumothorax on right s/p chest tube -During lung biopsy, immediately identified and brought to ED w/ chest tube placed -Pulm c/s -CXR w/ resolution of pneumothorax with tube placement and air removeal -Pain control -I/s -10/13: Chest tube removed, patient breathing well, to have repeat chest x-ray -10/14: Doing well status post removal, continue present management #Lung mass -Follows w/ pulm on outpt basis -10/14: Will need to continue following with pulmonology, path pending from lung mass biopsies #GERD -Continue PPI #Tobacco use -Advise cessation -Patient refuses nicotine replacement #DVT ppx: SCDs Annmarie Al MD Time spent in the patient's overall evaluation,decision-making process, review of diagnostic data, adjustment of management, discussion with other providers, nursing nursing and ancillary staff involved in patient's care documentation, 36 minutes Charges/Coding Visit Charges Inpatient E&M: 39991 Subs Hosp L2
[2023-10-14] MEDS: Pantoprazole Sodium 40 MG Tablet PO (08:59)
[2023-10-14] MEDS: Aspirin 81 MG TAB.CHEW PO (08:59)
[2023-10-14] MEDS: Clopidogrel Bisulfate 75 MG Tablet PO (08:59)
--- NOTE | 2023-10-14 11:48 | PN.NEURO_ITS ---
Objective Data Objective Data Vital Signs: Vital Signs Temp Pulse Resp BP Pulse Ox O2 Del Method O2 Flow Rate 97.5 F L 75 18 158/101 H 95 Room Air 1 10/14/23 08:00 10/14/23 08:00 10/14/23 08:00 10/14/23 08:00 10/14/23 08:00 10/14/23 08:54 10/13/23 09:53 Oxygen Flow Rate (L/min) 1 Oxygen Delivery Method Room Air Weight: 74.2 kg Body Mass Index (BMI) 24.1 Intake & Output: Intake and Output for Last 24 Hours 10/12/23 10/13/23 10/14/23 23:59 23:59 23:59 Intake Total 200 / 320 1180 / 1180 120 / 120 Output Total 0 / 0 1500 / 1500 1100 / 1100 Balance 200 / 320 -320 / -320 -980 / -980 Lab / Micro Data 10/14/23 05:38 10/14/23 05:38 Labs: Laboratory Results - last 24 hr 10/14/23 05:38: WBC 6.0, RBC 4.67, Hgb 14.4, Hct 42.6, MCV 91.2, MCH 30.8, MCHC 33.8, RDW Std Deviation 43.1, RDW Coeff of Juliane 13.1, Plt Count 222, MPV 9.0, Immature Gran % (Auto) 0.800, Neut % (Auto) 61.2, Lymph % (Auto) 23.2, [place] % (Auto) 9.8, Eos % (Auto) 4.0, Baso % (Auto) 1.0, Absolute Neuts (auto) 3.7, Absolute Lymphs (auto) 1.39, Nucleated RBC % 0, Sodium 138, Potassium 3.8, Chloride 108 H, Carbon Dioxide 26.0, Anion Gap 4 L, BUN 21 H, Creatinine 0.86, Estim Creat Clear Calc 81.07, Est GFR (MDRD) Af Amer 114, Est GFR (MDRD) Non-Af 94, BUN/Creatinine Ratio 24.5 H, Glucose 86, Calcium 8.7 Radiography Diagnostic Testing: Radiology Impression Echocardiogram 10/12/23 16:42 Interpretation Summary The estimated ejection fraction is 55-60 %. Buble study not well visualized No rior study to compare Ordering Physician: Annmarie Al Referring Physician: Scott Mejia Performed By: Mirian Rubin, SAM, RVT Rhythm Strip Rhythm Strip: Sinus Rhythm Rate: 55 Ectopy: None Physical Exam Const Orientation / Consciousness: awake, oriented to person, oriented to place and oriented to time Eyes EOMs intact bilaterally Resp normal respiratory effort Neuro Neuro Narrative: Awake, alert, oriented X3 Speech fluent no dysarthria Cranial nerves 2-12 intact Left upper extremity mild drift, mild left hand weakness (better than yesterday. No leg drift Sensation intact No ataxia Psych Attitude: calm Subject: Neurology Subjective EVON CUEVAS Jr. is a 68 year old M, who we are seeing in consultation today for advice on the management of stroke and related patient care. Improving left sided weakness. Assessment and Plan: Stroke Assessment/Plan VIVI CUEVAS Jr. is a 68 M with a history of HTN, HLD, CAD who presents for evaluation of left sided weakness following a lung biopsy. Neurological examination shows Left sided weakness that has markedly today. Neuroimaging shows CT head: Negative, CTA: No LVO, MRI Brain: No acute stroke. Hba1C :5.8, LDL: 98. Suspect clinical stroke although MRI negative of cryptogenic in etiology. Recommend Continue ASA, Plavix for 3 weeks then ASA alone Statin to keep LDL <70 ECHO: EF okay If negative. Will need 30 Day monitoring analyst on discharge Permissive hypertension in acute phase and custodial will need it to be <130 mm Hg PT/OT eval Speech and swallow eval Smoking cessation Stroke education Thanks for the consult I spent 35 min in evaluation, reviewing the diagnostics and coordination and care. Debbie Morrell
[2023-10-14] MEDS: Gabapentin 300 MG Capsule PO (20:05)
[2023-10-14] MEDS: Atorvastatin Calcium 80 MG Tablet PO (20:06)
[2023-10-15] VITALS (9 sets, daily range): BP systolic 122–159; BP diastolic 83–123; PULSE 63–83; RESP 16–18; TEMP 36–36.7; O2SAT 93–95; BMI 24.1
[2023-10-15] MEDS: Acetaminophen 500 MG Tablet 1000 MG PO ×3 (05:01→22:09)
[2023-10-15 06:27] LABS: Absolute Lymphocyte Count 1.32 X10^3/uL (0.83-4.51); Absolute Neutrophil Count 3.4 X10^3/uL (2.0-7.7); Basophil# 0.04 X10^3/uL; Basophil% 0.7 % (0-1); Eosinophil# 0.25 X10^3/uL; Eosinophils% 4.4 % (0-5); Hematocrit 44.1 % (40-54); Hemoglobin 14.8 g/dL (13.0-16.5); Lymphocyte # 1.32 X10^3/ul (0.83-4.51); Lymphocyte % 23.2 % (19-41); Mean Corp Hgb Conc 33.6 g/dL (32-36); Mean Corpuscular Hgb 30.5 pg (27.0-32.0); Mean Corpuscular Volume 90.9 fL (80-94); Monocyte% 10.6 % (0-10); NRBC Flagged by Analyzer 0 % (0-5); Neutrophil # 3.41 X10^3/uL (2.7-7.7); Platelet Count 234 K/mm3 (150-450); RBC Distribution Width CV 13.1 % (11.6-14.6); RBC Distribution Width SD 43.4 fl (35.1-43.9); Red Blood Count 4.85 M/mm3 (4.6-6.2); White Blood Count 5.7 K/mm3 (4.4-11.0)
[2023-10-15 06:46] LABS: Anion Gap 5 (5-15); BUN 25 mg/dL (7-18); BUN/Creat Ratio 29.1 RATIO (10-20); Calcium,Total 8.7 mg/dL (8.5-10.1); Chloride 108 mmol/L (98-107); Creatinine, Serum 0.86 mg/dL (0.70-1.30); EST Glomerular Filtration Rate 94 mL/min (>60); Est Glom Filt Rate - Afr Amer 113 mL/min (>60); Estimated Creatinine Clearance 81.07 ml/min; Glucose 94 mg/dL (74-106); Potassium 3.8 mmol/L (3.5-5.1); Sodium Level 138 mmol/L (136-145)
[2023-10-15] MEDS: Aspirin 81 MG TAB.CHEW PO (08:13)
[2023-10-15] MEDS: Clopidogrel Bisulfate 75 MG Tablet PO (08:14)
[2023-10-15] MEDS: Pantoprazole Sodium 40 MG Tablet PO (08:14)
--- NOTE | 2023-10-15 09:12 | CASEMGMT ---
A note was left for EDWIN that family would like [facility]. [facility] does not show up on [facility] website, but family spoke with Hiro in admissions at [facility] and she said they take [facility]. EDWIN sent a referral to [facility] via [facility]. Amrita Robledo COURT MONITOR KATHLEEN
--- NOTE | 2023-10-15 10:15 | CASEMGMT ---
[facility] is able to take patient. EDWIN asked [facility] to please start the pre-cert. EDWIN spoke with patient's Alise and confirmed she would like [facility] for patient. EDWIN let Alise know that [facility] can take patient. EDWIN explained patient will stay at [facility] until insurance approves patient. Plan: d/c to [facility] pending pre-cert Amrita WANG
--- NOTE | 2023-10-15 15:14 | PN_ITS ---
Subjective Subjective Patient seen and examined. He felt well and had this. He had an uneventful night. Review of systems otherwise negative. He has remained hemodynamically stable. Objective Data Objective Data Vital Signs: Vital Signs Temp Pulse Resp BP Pulse Ox O2 Del Method O2 Flow Rate 97.7 F L 75 18 145/123 H 95 Room Air 1 10/15/23 14:10 10/15/23 14:10 10/15/23 14:10 10/15/23 14:10 10/15/23 14:38 10/15/23 14:38 10/13/23 09:53 Oxygen Flow Rate (L/min) 1 Oxygen Delivery Method Room Air Weight: 163 lb 9.328 oz Body Mass Index (BMI) 24.1 Intake & Output: Intake and Output for Last 24 Hours 10/13/23 10/14/23 10/15/23 23:59 23:59 23:59 Intake Total 1180 / 1180 480 / 480 360 / 360 Output Total 1500 / 1500 1850 / 1850 1000 / 1000 Balance -320 / -320 -1370 / -1370 -640 / -640 Lab / Micro Data 10/15/23 05:55 10/15/23 05:55 Labs: Laboratory Results - last 24 hr 10/15/23 05:55: WBC 5.7, RBC 4.85, Hgb 14.8, Hct 44.1, MCV 90.9, MCH 30.5, MCHC 33.6, RDW Std Deviation 43.4, RDW Coeff of Juliane 13.1, Plt Count 234, MPV 9.0, Immature Gran % (Auto) 1.100 H, Neut % (Auto) 60.0, Lymph % (Auto) 23.2, [place] % (Auto) 10.6 H, Eos % (Auto) 4.4, Baso % (Auto) 0.7, Absolute Neuts (auto) 3.4, Absolute Lymphs (auto) 1.32, Nucleated RBC % 0, Sodium 138, Potassium 3.8, Chloride 108 H, Carbon Dioxide 25.0, Anion Gap 5, BUN 25 H, Creatinine 0.86, Estim Creat Clear Calc 81.07, Est GFR (MDRD) Af Amer 113, Est GFR (MDRD) Non-Af 94, BUN/Creatinine Ratio 29.1 H, Glucose 94, Calcium 8.7 Rhythm Strip Rhythm Strip: Sinus Rhythm Rate: 55 Ectopy: None Physical Exam Const alert, oriented x3 and no apparent distress General Appearance: cooperative HEENT normocephalic, head/scalp atraumatic, moist oral mucous membranes and oropharynx normal Eyes PERRL and EOMs intact bilaterally Neck no lymphadenopathy and supple Lymph Lymphatic: no lymphadenopathy noted Resp normal respiratory effort, normal air movement and clear to auscultation bilaterally Cardio regular rate, regular rhythm, S1 normal heart sound, S2 normal heart sound and no murmurs GI normal to inspection, nondistended, normoactive bowel sounds, soft to palpation and non-tender Extremity normal capillary refill, no clubbing, cyanosis or edema and no calf tenderness General Extremity: no tenderness to palpation of joints or extremities Neuro CN's II-XII intact bilaterally Motor Exam: strength 5/5 throughout and general weakness Psych thought process normal, cooperative and affect normal Appearance: appropriate Assessment & Plan Assessment/Plan (1) GERD (gastroesophageal reflux disease): (2) COPD (chronic obstructive pulmonary disease): (3) Iatrogenic pneumothorax: PLAN: Plan #Iatrogenic pneumothorax * Patient was having a biopsy for lung mass and had an iatrogenic pneumothorax. He had a chest tube placed which has not been removed. Stable. * #Cryptogenic CVA * He had sudden onset left-sided weakness and left visual field defect. CT of the brain and CT of the head and neck were negative. Was not given tenecteplase as he had just had the lung biopsy and the size had increased risk of bleeding. MRI of the brain was read as negative though his left arm still remain weaker. Neurology evaluated patient and thought that he likely had a cryptogenic stroke. * Is to be on dual antiplatelet therapy with aspirin and Plavix for 21 days then to continue with aspirin indefinitely. To have a 30-day event monitor upon discharge. * 2D echo was unremarkable. * #Lung mass: S/p biopsy. Follow-up with pulmonology on outpatient basis. Biopsy results not yet in. #GERD: On PPI #Nicotine dependence: Counseled to quit. Refused nicotine patch. #DVT prophylaxis: SCDs Disposition: Awaiting placement. Charges/Coding Visit Charges Inpatient E&M: 26912 Subs Hosp L2
[2023-10-15] MEDS: Atorvastatin Calcium 80 MG Tablet PO (22:09)
[2023-10-15] MEDS: Gabapentin 300 MG Capsule PO (22:09)
[2023-10-16 02:50] VITALS: BMI 24.1
[2023-10-16 04:40] VITALS: BP 135/88; PULSE 74; RESP 16; TEMP 36.6; O2SAT 92
[2023-10-16] MEDS: Acetaminophen 500 MG Tablet 1000 MG PO ×3 (06:27→22:21)
[2023-10-16 07:24] LABS: Absolute Lymphocyte Count 1.53 X10^3/uL (0.83-4.51); Absolute Neutrophil Count 3.1 X10^3/uL (2.0-7.7); Basophil# 0.05 X10^3/uL; Basophil% 0.9 % (0-1); Eosinophil# 0.26 X10^3/uL; Eosinophils% 4.6 % (0-5); Hematocrit 44.6 % (40-54); Hemoglobin 15.2 g/dL (13.0-16.5); Lymphocyte # 1.53 X10^3/ul (0.83-4.51); Lymphocyte % 27.3 % (19-41); Mean Corp Hgb Conc 34.1 g/dL (32-36); Mean Platelet Vol. 9.1 fl (6.2-12.0); Monocyte% 10.7 % (0-10); NRBC Flagged by Analyzer 0 % (0-5); Neutrophil % 55.4 % (47-70); Platelet Count 238 K/mm3 (150-450); RBC Distribution Width CV 13.1 % (11.6-14.6); RBC Distribution Width SD 43.5 fl (35.1-43.9); White Blood Count 5.6 K/mm3 (4.4-11.0)
[2023-10-16 07:53] VITALS: O2SAT 95
[2023-10-16 08:03] LABS: Anion Gap 5 (5-15); BUN 26 mg/dL (7-18); BUN/Creat Ratio 30.4 RATIO (10-20); Calcium,Total 9.1 mg/dL (8.5-10.1); Chloride 108 mmol/L (98-107); Creatinine, Serum 0.86 mg/dL (0.70-1.30); EST Glomerular Filtration Rate 94 mL/min (>60); Est Glom Filt Rate - Afr Amer 114 mL/min (>60); Estimated Creatinine Clearance 81.07 ml/min; Glucose 101 mg/dL (74-106); Potassium 3.9 mmol/L (3.5-5.1); Sodium Level 138 mmol/L (136-145)
[2023-10-16 09:45] VITALS: BP 155/90; PULSE 72; RESP 16; TEMP 36.7; O2SAT 93
[2023-10-16] MEDS: Clopidogrel Bisulfate 75 MG Tablet PO (09:51)
[2023-10-16] MEDS: Aspirin 81 MG TAB.CHEW PO (09:51)
[2023-10-16] MEDS: Pantoprazole Sodium 40 MG Tablet PO (09:51)
--- NOTE | 2023-10-16 12:42 | PN_ITS ---
Subjective Subjective Patient seen and examined. He had no active complaints and had an uneventful night. Review of systems is otherwise negative. Objective Data Objective Data Vital Signs: Vital Signs Temp Pulse Resp BP Pulse Ox O2 Del Method O2 Flow Rate 98.0 F 72 16 155/90 H 93 Room Air 1 10/16/23 09:45 10/16/23 09:45 10/16/23 09:45 10/16/23 09:45 10/16/23 09:45 10/16/23 10:08 10/13/23 09:53 Oxygen Flow Rate (L/min) 1 Oxygen Delivery Method Room Air Weight: 163 lb 9.328 oz Body Mass Index (BMI) 24.1 Intake & Output: Intake and Output for Last 24 Hours 10/14/23 10/15/23 10/16/23 23:59 23:59 23:59 Intake Total 480 / 480 600 / 620 Output Total 1850 / 1850 1200 / 1200 0 / 0 Balance -1370 / -1370 -600 / -580 Lab / Micro Data 10/16/23 06:50 10/16/23 06:50 Labs: Laboratory Results - last 24 hr 10/16/23 06:50: WBC 5.6, RBC 4.90, Hgb 15.2, Hct 44.6, MCV 91.0, MCH 31.0, MCHC 34.1, RDW Std Deviation 43.5, RDW Coeff of Juliane 13.1, Plt Count 238, MPV 9.1, Immature Gran % (Auto) 1.100 H, Neut % (Auto) 55.4, Lymph % (Auto) 27.3, [place] % (Auto) 10.7 H, Eos % (Auto) 4.6, Baso % (Auto) 0.9, Absolute Neuts (auto) 3.1, Absolute Lymphs (auto) 1.53, Nucleated RBC % 0, Sodium 138, Potassium 3.9, Chloride 108 H, Carbon Dioxide 25.0, Anion Gap 5, BUN 26 H, Creatinine 0.86, Estim Creat Clear Calc 81.07, Est GFR (MDRD) Af Amer 114, Est GFR (MDRD) Non-Af 94, BUN/Creatinine Ratio 30.4 H, Glucose 101, Calcium 9.1 Rhythm Strip Rhythm Strip: Sinus Rhythm Rate: 55 Ectopy: None Physical Exam Const alert, oriented x3 and no apparent distress General Appearance: cooperative HEENT normocephalic, head/scalp atraumatic, moist oral mucous membranes and oropharynx normal Eyes PERRL and EOMs intact bilaterally Neck no lymphadenopathy and supple Lymph Lymphatic: no lymphadenopathy noted Resp normal respiratory effort, normal air movement and clear to auscultation bilaterally Cardio regular rate, regular rhythm, S1 normal heart sound, S2 normal heart sound and no murmurs GI normal to inspection, nondistended, normoactive bowel sounds, soft to palpation and non-tender Extremity normal capillary refill, no clubbing, cyanosis or edema and no calf tenderness General Extremity: no tenderness to palpation of joints or extremities Neuro CN's II-XII intact bilaterally and no focal motor deficits Motor Exam: strength 5/5 throughout and general weakness Psych thought process normal, cooperative and affect normal Appearance: appropriate Assessment & Plan Assessment/Plan (1) GERD (gastroesophageal reflux disease): (2) COPD (chronic obstructive pulmonary disease): (3) Iatrogenic pneumothorax: PLAN: Plan #Iatrogenic pneumothorax * Patient was having a biopsy for lung mass and had an iatrogenic pneumothorax. * He had a chest tube placed which has now been removed. Stable. * On room air * #Cryptogenic CVA * He had sudden onset left-sided weakness and left visual field defect. CT of t he brain and CT of the head and neck were negative. Was not given tenecteplase as he had just had the lung biopsy and the size had increased risk of bleeding. MRI of the brain was read as negative though his left arm still remain weaker. Neurology evaluated patient and thought that he likely had a cryptogenic stroke. * Is to be on dual antiplatelet therapy with aspirin and Plavix for 21 days then to continue with aspirin indefinitely. To have a 30-day event monitor upon discharge. * 2D echo was unremarkable. * #Lung mass: * S/p biopsy. Follow-up with pulmonology on outpatient basis. * Biopsy results showed fragments of benign lung parenchymal tissue with extensive fibrosis and negative for malignancy. #GERD: On PPI #Nicotine dependence: Counseled to quit. Refused nicotine patch. #DVT prophylaxis: SCDs Disposition: Still awaiting placement. Charges/Coding Visit Charges Inpatient E&M: 00092 Subs Hosp L2
[2023-10-16 13:06] VITALS: BMI 24.1
[2023-10-16 14:55] VITALS: BP 143/89; PULSE 63; RESP 12; TEMP 36.5; O2SAT 96
[2023-10-16 16:33] VITALS: BP 142/91; PULSE 67; RESP 16; TEMP 36.6; O2SAT 94
[2023-10-16] MEDS: Atorvastatin Calcium 80 MG Tablet PO (22:21)
[2023-10-16] MEDS: Gabapentin 300 MG Capsule PO (22:21)
[2023-10-16 22:33] VITALS: BP 138/78; PULSE 65; RESP 16; TEMP 36.6; O2SAT 93
[2023-10-17 01:03] VITALS: BMI 24.1
[2023-10-17 04:30] VITALS: BP 136/88; PULSE 78; RESP 16; TEMP 36.4; O2SAT 93
[2023-10-17] MEDS: Acetaminophen 500 MG Tablet 1000 MG PO (05:08)
[2023-10-17 08:18] LABS: Absolute Lymphocyte Count 1.24 X10^3/uL (0.83-4.51); Absolute Neutrophil Count 4.6 X10^3/uL (2.0-7.7); Basophil# 0.04 X10^3/uL; Basophil% 0.6 % (0-1); Eosinophil# 0.21 X10^3/uL; Eosinophils% 3.1 % (0-5); Hematocrit 47.5 % (40-54); Hemoglobin 15.6 g/dL (13.0-16.5); Lymphocyte # 1.24 X10^3/ul (0.83-4.51); Lymphocyte % 18.3 % (19-41); Mean Corp Hgb Conc 32.8 g/dL (32-36); Mean Corpuscular Hgb 30.2 pg (27.0-32.0); Mean Corpuscular Volume 91.9 fL (80-94); Mean Platelet Vol. 8.9 fl (6.2-12.0); Monocyte# 0.65 X10^3/uL; Monocyte% 9.6 % (0-10); NRBC Flagged by Analyzer 0 % (0-5); Neutrophil # 4.58 X10^3/uL (2.7-7.7); Neutrophil % 67.4 % (47-70); Platelet Count 242 K/mm3 (150-450); RBC Distribution Width CV 12.8 % (11.6-14.6); RBC Distribution Width SD 43.8 fl (35.1-43.9); Red Blood Count 5.17 M/mm3 (4.6-6.2); White Blood Count 6.8 K/mm3 (4.4-11.0)
[2023-10-17 08:20] VITALS: O2SAT 90
--- NOTE | 2023-10-17 08:30 | CASEMGMT ---
MINI PFEIFFER received call from and daughter stating that insurance denied precert to [facility] as they are not in-network with insurance. Per family, if patient is not able to discharge to [facility], they would like patient to discharge home with outpatient therapy and walker. MINI PFEIFFER updated SW regarding precert information. CM will continue to follow this patient and plan for a safe discharge.
[2023-10-17 08:34] LABS: Anion Gap 3 (5-15); BUN 28 mg/dL (7-18); BUN/Creat Ratio 33.3 RATIO (10-20); Calcium,Total 8.9 mg/dL (8.5-10.1); Chloride 108 mmol/L (98-107); Creatinine, Serum 0.84 mg/dL (0.70-1.30); EST Glomerular Filtration Rate 96 mL/min (>60); Est Glom Filt Rate - Afr Amer 116 mL/min (>60); Glucose 95 mg/dL (74-106); Potassium 3.9 mmol/L (3.5-5.1); Sodium Level 134 mmol/L (136-145)
[2023-10-17] MEDS: Aspirin 81 MG TAB.CHEW PO (08:36)
[2023-10-17] MEDS: Pantoprazole Sodium 40 MG Tablet PO (08:36)
[2023-10-17] MEDS: Clopidogrel Bisulfate 75 MG Tablet PO (08:36)
[2023-10-17 08:37] VITALS: BP 163/92; PULSE 79; RESP 16; TEMP 36.4; O2SAT 94
--- NOTE | 2023-10-17 10:13 | CASEMGMT ---
EDWIN called Amber at [facility] per her request. Amber said insurance is now saying they are not going to approve [facility]. EDWIN called patient's and daughter and they are both already aware of this issue with insurance. They would like to take patient home with outpatient therapy. EDWIN notified MINI PFEIFFER. Plan: Home with outpatient therapy and a walker Amrita WANG
--- NOTE | 2023-10-17 11:45 | PCM.DC ---
Discharge Instructions Diet Discharge Diet: Low fat / Low cholesterol Activity Discharge Activity: Return to Normal Activity Weight Bearing Status: Weight bearing as tolerated Dressing / Incision Call your doctor if you observe: Fever of 101 or Higher, Shortness of breath, Dizziness, Swelling in the ankles, Chest pain and Increased palpitations (irregular heartbeat) Follow Up Care Test Results: Test results from this visit will be discussed in further detail at your follow-up appointment, if applicable. Discharge Plan Admission Admit Date/Time: 10/13/23 10:53 Primary Reason for Your Visit: CVA, pneumothorax Attending Provider: Marjan Pizarro Primary Care Provider: Scott Mejia Consulting Providers: Raf Murillo; Aida Chaparro; Debbie Morrell; Leyda Ramos; Mary Mcclure; Yaron Combs; Fabi Koo; Theo Wu; Ruben Cat; Lindsay Montana; Nick Noyola; Lupe Meza; Naveen High; Mariah Ayala; Geovany Rubin; Yaquelin Hurtado; Abhijeet Jessica; Mrailou Gallego; Tesfaye Nunez; Annmarie Al Discharge Orders/Prescriptions Prescriptions: New clopidogrel 75 mg Tablet 75 mg PO DAILY Qty: 21 0RF Continued pantoprazole 40 mg tablet,delayed release (DR/EC) 40 mg PO DAILY Patient Comments: ONE TABLET TABLET BY MOUTH DAILY atorvastatin 40 mg tablet 40 mg PO DAILY Patient Comments: TAKE 1 TABLET BY MOUTH EVERY DAY aspirin 81 mg tablet,delayed release (DR/EC) 81 mg PO DAILY gabapentin 300 mg capsule 300 mg PO QHS Other Ambulatory Orders: 30 Day Event Recorder Preventi (Urgent) Timeframe: 1 Day Facility: [facility] - Location: Cardiovascular Services Ordered By: Dr. Marjan Pizarro Referrals / Follow Up: Scott Mejia MD [Primary Care Provider] - Within 1 Week Bharathi Tanner MD [Non-Staff -Ordering Privileges] - Within 2 Weeks Disposition Disposition (needs filled in before D/C Order can be placed): Home, Self Care
--- NOTE | 2023-10-17 11:46 | PCM.DC.SUM ---
Providers Date of Admission: 10/13/23 Date of Discharge: 10/17/23 Primary Care Physician: Dr. Scott Mejia MD Consultations 10/12/23 12:16 Consult: Family Development Specialist / Pulmonary Medicine Routine Consulting Provider: Intensivists/Pulmonary Med Reason for Consult: pneumothorax w/ chest tube placed EMERGENT Consult: No Notified: Yes Date Notified: 10/12/23 Time Notified: 11:25 Method of Notification: ED Physician Initiated 10/12/23 16:37 Consult: Tele-Neurology Routine Consulting Provider: [facility] Reason for Consult: Acute Ischemic Stroke/TIA EMERGENT Consult: No Notified: Yes Date Notified: 10/12/23 Time Notified: 16:37 Method of Notification: Verbal Comments:: pt stroke call, seen in CT Nursing Unit Staff Notify [facility] of Tele-Neurology Consult: Yes Reason For Visit: PNEUMOTHORAX Diagnosis Discharge Diagnosis (1) GERD (gastroesophageal reflux disease): Status: Acute Code(s): K21.9 - Gastro-esophageal reflux disease without esophagitis (2) COPD (chronic obstructive pulmonary disease): Status: Chronic Code(s): J44.9 - Chronic obstructive pulmonary disease, unspecified (3) Iatrogenic pneumothorax: Status: Acute Code(s): J95.811 - Postprocedural pneumothorax Plan #Iatrogenic pneumothorax Patient was having a biopsy for lung mass and had an iatrogenic pneumothorax. He had a chest tube placed which has now been removed. Stable. On room air #Cryptogenic CVA He had sudden onset left-sided weakness and left visual field defect. CT of the brain and CT of the head and neck were negative. Was not given tenecteplase as he had just had the lung biopsy and the size had increased risk of bleeding. MRI of the brain was read as negative though his left arm still remain weaker. Neurology evaluated patient and thought that he likely had a cryptogenic stroke. Is to be on dual antiplatelet therapy with aspirin and Plavix for 21 days then to continue with aspirin indefinitely. To have a 30-day event monitor upon discharge. 2D echo was unremarkable. #Lung mass: S/p biopsy. Follow-up with pulmonology on outpatient basis. Biopsy results showed fragments of benign lung parenchymal tissue with extensive fibrosis and negative for malignancy. #GERD: On PPI #Nicotine dependence: Counseled to quit. Refused nicotine patch. #DVT prophylaxis: SCDs Disposition: Still awaiting placement. Medications at Discharge Home Medications aspirin 81 mg tablet,delayed release 81 mg PO DAILY 09/26/23 atorvastatin 40 mg tablet 40 mg PO DAILY 09/26/23 pantoprazole 40 mg tablet,delayed release 40 mg PO DAILY 09/26/23 gabapentin 300 mg capsule 300 mg PO QHS 10/11/23 clopidogrel 75 mg tablet 75 mg PO DAILY #21 tabs 10/17/23 Hospital Course Operations None Procedures 2-D Echocardiogram Summary of Care Provided Minutes Spent on Discharge: 48 Hospital Course: Patient is a 68-year-old male with past medical history as outlined who came into the ED for lung biopsy due to a lung mass. In the process of the lung biopsy, it was complicated by pneumothorax and so he was immediately brought to the ED and had an anterior thoracostomy chest tube placed. Patient was initially lethargic which was thought to be due to the sedatives he had been given for the procedure. Chest x-ray done after the chest tube placement showed complete resolution of the pneumothorax with good seal placement. Patient was admitted and managed for iatrogenic pneumothorax. Pulmonology was consulted. Hospital course was complicated by weakness in his left upper extremity and left visual field defects which resulted in a stroke alert being called in the course of the admission. Stroke neurologist reviewed patient and in light of the recent biopsy, as well as the bleeding risk is too high to proceed with tenecteplase. Patient was placed on aspirin and loaded with Plavix and was to continue with dual antiplatelet therapy for 21 days and also high intensity statin. MRI of the brain done was negative but because his left upper extremity was still weaker than the right, neurology thought this was likely a cryptogenic stroke. He had a 2D echo which showed EF of 55 to 60% that was otherwise unremarkable. Initial plan was for patient to be placed in a skilled rehab facility. However family subsequently decided to take patient home with home health therapy. He was therefore discharged on 10/17/2019 for p.o. aspirin and Plavix for 21 days to continue with aspirin only and also on high intensity statin. He is follow-up with his primary care doctor and pulmonology as well as neurology on outpatient basis. Patient seen and examined prior to discharge. He had no active complaints and had an uneventful night. Will systems otherwise negative. Labs and vitals reviewed. Home medication reviewed and reconciled. Physical Exam Const alert, oriented x3 and no apparent distress General Appearance: cooperative and comfortable Orientation / Consciousness: awake HEENT normocephalic, head/scalp atraumatic, hearing grossly normal bilaterally, moist oral mucous membranes and oropharynx normal Mouth: oral and palatal mucosa normal Eyes PERRL, EOMs intact bilaterally and conjunctivae normal Neck no lymphadenopathy and supple Lymph Lymphatic: no lymphadenopathy noted and no lymphedema noted Resp normal respiratory effort, normal air movement and clear to auscultation bilaterally Cardio regular rate, regular rhythm, S1 normal heart sound, S2 normal heart sound and no murmurs GI normal to inspection, nondistended, normoactive bowel sounds, soft to palpation and non-tender Extremity normal to inspection, full ROM, normal capillary refill, no clubbing, cyanosis or edema and no calf tenderness General Extremity: no tenderness to palpation of joints or extremities Skin no rashes or lesions noted and no wounds Neuro oriented x3, CN's II-XII intact bilaterally, moves all extremities and no focal motor deficits Sensorium / Orientation: awake Motor Exam: strength 5/5 throughout and general weakness Psych thought process normal, cooperative and affect normal Appearance: appropriate Weight / BMI Weight Weight: 163 lb 9.328 oz Body Mass Index (BMI) 24.1 ABG / Lab / Microbiology Data 10/17/23 07:50 10/17/23 07:50 Laboratory: Laboratory Results - last 24 hr 10/17/23 07:50: WBC 6.8, RBC 5.17, Hgb 15.6, Hct 47.5, MCV 91.9, MCH 30.2, MCHC 32.8, RDW Std Deviation 43.8, RDW Coeff of Juliane 12.8, Plt Count 242, MPV 8.9, Immature Gran % (Auto) 1.000 H, Neut % (Auto) 67.4, Lymph % (Auto) 18.3 L, [place] % (Auto) 9.6, Eos % (Auto) 3.1, Baso % (Auto) 0.6, Absolute Neuts (auto) 4.6, Absolute Lymphs (auto) 1.24, Nucleated RBC % 0, Sodium 134 L, Potassium 3.9, Chloride 108 H, Carbon Dioxide 23.0, Anion Gap 3 L, BUN 28 H, Creatinine 0.84, Estim Creat Clear Calc 83.00, Est GFR (MDRD) Af Amer 116, Est GFR (MDRD) Non-Af 96, BUN/Creatinine Ratio 33.3 H, Glucose 95, Calcium 8.9 D/C Instructions Discharge Diet: Low fat / Low cholesterol Discharge Activity: Return to Normal Activity Weight Bearing Status: Weight bearing as tolerated Call your doctor if you observe: Fever of 101 or Higher, Shortness of breath, Dizziness, Swelling in the ankles, Chest pain and Increased palpitations (irregular heartbeat) Meaningful Use Info Meaningful Use Diagnoses (Choose all that apply): Ischemic CVA CVA Therapy Assessed for PT,OT and/or ST?: Yes Ischemic Stroke Antithrombotic order at d/c?: Yes Dx of Atrial fib/flutter?: No Statins at discharge?: Yes Primary Dx Acute Ischemic CVA?: Yes Discharge Plan Admission Admit Date/Time: 10/13/23 10:53 Primary Reason for Your Visit: CVA, pneumothorax Attending Provider: Marjan Pizarro Primary Care Provider: Scott Mejia Consulting Providers: Raf Murillo; Aida Chaparro; Debbie Morrell; Leyda Ramos; Mary Mcclure; Yaron Combs; Fabi Koo; Theo Wu; Ruben Cat; Lindsay Montana; Nick Noyola; Lupe Meza; Naveen High; Mariah Ayala; Geovany Rubin; Yaquelin Hurtado; Abhijeet Jessica; Marilou Gallego; Tesfaye Nunez; Annmarie Al Discharge Orders/Prescriptions Prescriptions: New clopidogrel 75 mg Tablet 75 mg PO DAILY Qty: 21 0RF Continued pantoprazole 40 mg tablet,delayed release (DR/EC) 40 mg PO DAILY Patient Comments: ONE TABLET TABLET BY MOUTH DAILY atorvastatin 40 mg tablet 40 mg PO DAILY Patient Comments: TAKE 1 TABLET BY MOUTH EVERY DAY aspirin 81 mg tablet,delayed release (DR/EC) 81 mg PO DAILY gabapentin 300 mg capsule 300 mg PO QHS Other Ambulatory Orders: 30 Day Event Recorder Preventi (Urgent) Timeframe: 1 Day Facility: [facility] - Location: Cardiovascular Services Ordered By: Dr. Marjan Pizarro Referrals / Follow Up: Scott Mejia MD [Primary Care Provider] - 10/22/23 10:50 am Bharathi Tanner MD [Non-Staff -Ordering Privileges] - Within 2 Weeks (If you haven't heard from the office by Sunday10-22-23 please call the office to schedule an appt. ) Disposition Disposition (needs filled in before D/C Order can be placed): Home, Self Care Charges/Coding Visit Charges Inpatient E&M: 60663 Disch Hosp >30min
[2023-10-17 12:04] VITALS: BMI 24.1
--- NOTE | 2023-10-17 12:15 | CASEMGMT ---
MINI PFEIFFER received script for outpatient therapy and walker. MINI PFEIFFER sent referral to [facility] and arranged for delivery for walker to patient's room. MINI PFEIFFER in to updated patient and . MINI PFEIFFER updated regarding walker setup and script for outpatient therapy that will be included with discharge instructions to take to facility of choice. Patient, , and daughter had no further questions or concerns at this time.
[2023-10-17 12:34] VITALS: BP 136/91; PULSE 73; RESP 16; TEMP 36.4; O2SAT 94
--- NOTE | 2023-10-17 12:41 | PHA.DC_ITS ---
Pharmacy [facility] has performed discharge medication reconciliation and counseling for this patient. 1. Clopidogrel 75mg po daily x 21 days The patient's discharge medication list was reviewed for discrepancies and discrepancies were resolved. The patient was counseled on the following discharge medications and changes in medications for homegoing were reviewed. The Reason for Use, instructions for use, and potential side effects were reviewed for all new medications. The patient's questions regarding all of their medications were answered. The patient was able to verbally demonstrate an understanding of their discharge medications. Medications at Discharge Home Medications aspirin 81 mg tablet,delayed release 81 mg PO DAILY 09/26/23 atorvastatin 40 mg tablet 40 mg PO DAILY 09/26/23 pantoprazole 40 mg tablet,delayed release 40 mg PO DAILY 09/26/23 gabapentin 300 mg capsule 300 mg PO QHS 10/11/23 clopidogrel 75 mg tablet 75 mg PO DAILY #21 tabs 10/17/23
== END 2023-10-17 13:00 | disposition home or self-care (01) | DRG 65 ==
LOC: ED 11:03 → PCU 11:23
PROVIDERS: Admitting Provider Internal Medicine; Emergency Provider Emergency Medicine; PCP Family Medicine; Visit Provider Student in an Organized Health Care Education/Training Program
DX: I63.9 Cerebral infarction, unspecified (principal); J95.811 Postprocedural pneumothorax; G81.94 Hemiplegia, unspecified affecting left nondominant side; J84.10 Pulmonary fibrosis, unspecified; J44.9 Chronic obstructive pulmonary disease, unspecified; R47.01 Aphasia; F17.210 Nicotine dependence, cigarettes, uncomplicated; K21.9 Gastro-esophageal reflux disease without esophagitis; D14.31 Benign neoplasm of right bronchus and lung; H53.8 Other visual disturbances; I25.10 Atherosclerotic heart disease of native coronary artery without angina pectoris; R47.81 Slurred speech; Y84.9 Medical procedure, unspecified as the cause of abnormal reaction of the patient, or of later complication, without mention of misadventure at the time of the procedure; R29.709 NIHSS score 9; Z79.82 Long term (current) use of aspirin; Z79.899 Other long term (current) drug therapy
CPT/HCPCS: 36415; 70450; 70496; 70498; 70551; 71045; 80048; 80061; 82962; 83036; 84443; 85025; 92523; 93005; 93306; 94668; 94762; 97110; 97116; 97162; 97165; 97530; 97535; 99252; 99284; Q9967; G0463

== ENCOUNTER → 2023-12-26 | Outpatient (CLI) | payer MEDICARE, SELFPAY ==
--- NOTE | 2023-12-26 16:39 | CT_ITS ---
STUDY: CT CHEST WITHOUT CONTRAST REASON FOR EXAM: Male, 68 years old. 9.6 mmX 5.3 mm nodule in a smoker RADIATION DOSAGE (If Supplied By Facility): CTDIvol = ( 11.69 ) mGy, DLP = ( 467.41 ) mGycm TECHNIQUE: Transaxial imaging was performed without the administration of intravenous contrast material. Multiplanar coronal and sagittal images were reformatted. Individualized dose optimization techniques were used for this CT. COMPARISON: Comparison is made with prior study dated September 04, 2023. FINDINGS: CHEST Stable 9.6 mm slightly irregular nodule in the posterior aspect of the right upper lobe as seen on axial image #36 and coronal image #162. Hyperinflation. Emphysematous changes worse in the lung apices with bullous formation. Stable scarring at the left lung apex. There is no demonstrated pleural abnormality. There are calcifications of the coronary arteries. There are small lymph nodes within the mediastinum, which are normal in size and morphology most compatible with reactive lymph hyperplasia. Normal hilar regions. Normal unenhanced pulmonary arteries. There is atherosclerotic calcification of the aortic arch. There are multi-level degenerative changes of the thoracic spine. There is no demonstrated abnormality of the visualized upper abdomen. CT/Chest without Contrast IMPRESSION: Stable examination. Electronically Signed: José Justice MD at 10:26 EDT ,
== END | disposition home or self-care (01) ==
LOC: CT 16:37
PROVIDERS: PCP Family Medicine; Referring Provider Nurse Practitioner Acute Care; Visit Provider Nurse Practitioner Acute Care
DX: R91.1 Solitary pulmonary nodule (principal)
CPT/HCPCS: 71250

== ENCOUNTER 2024-02-04 21:44 | Inpatient (IN) | payer MEDICARE, SELFPAY ==
[2024-02-04 21:45] VITALS: BP 88/65; PULSE 44; RESP 16; TEMP 36.1; O2SAT 94; BMI 24.9
[2024-02-04 22:00] VITALS: O2SAT 98
--- NOTE | 2024-02-04 22:00 | EKG12_ITS ---
Test Reason : CP Blood Pressure : / mmHG Vent. Rate : 049 BPM Atrial Rate : 000 BPM P-R Int : 000 ms QRS Dur : 088 ms QT Int : 412 ms P-R-T Axes : 000 076 086 degrees QTc Int : 372 ms Critical Test Result: STEMI Junctional rhythm ST elevation consider inferolateral injury or acute infarct ACUTE FL / STEMI Consider right ventricular involvement in acute inferior infarct Abnormal ECG When compared with ECG of 12-OCT-2023 10:04, Significant changes have occurred Confirmed by Kelvin Ruiz ([id number]), editor sound JESSICA FERNANDO ([id number]) on 02/11/2024 12:55:09 PM Referred By: Lisa Guevara Confirmed By:Kelvin Ruiz
--- NOTE | 2024-02-04 22:03 | EX.ED.DYSGE1 ---
HPI History of Present Illness Chief Complaint: Shortness of Breath Narrative Narrative: 68-year-old male past medical history of coronary artery disease with stenting in 2008, states he had a minor heart attack, does not see cardiology. He had his stent placed at [place] at that time. This evening at around 9 PM, approximately an hour ago, he was lying in bed and started not to feel well. He states that he is having chest pressure towards the middle of his chest and it feels like he is breathing out/exhaling hot air. He denies any nausea or vomiting, no diaphoresis. He may be slightly short of breath but is experiencing chest pressure. Additionally, he quit smoking 18 days ago because he is supposed to have surgery on his cervical spine. He takes cholesterol medication but states he does not take an antihypertensive. [facility] Medical History COPD (chronic obstructive pulmonary disease) GERD (gastroesophageal reflux disease) Lung nodule Nicotine dependence, cigarettes, uncomplicated Home Medications aspirin 81 mg tablet,delayed release 81 mg PO DAILY heart health 09/26/23 [History Last Taken 10/11/23] atorvastatin 40 mg tablet 40 mg PO DAILY HLD 09/26/23 [History Last Taken 10/11/23] pantoprazole 40 mg tablet,delayed release 40 mg PO DAILY GERD 09/26/23 [History Last Taken 10/12/23] gabapentin 300 mg capsule 300 mg PO QHS nerve pain 10/11/23 [History Last Taken 10/11/23] Allergy/AdvReac Type Severity Reaction Status Date / Time No Known Allergies Allergy Verified 02/04/24 21:45 Social History Smoking Status: Current every day smoker tobacco type: cigarettes second hand exposure: Yes ROS ROS ED ROS Narrative Constitutional: No fever, no chills. HEENT: No sore throat. No neck pain. No loss of vision. No rhinorrhea. Cardiovascular: Positive chest pressure/chest pain. No palpitations. No pedal edema. Respiratory: No cough, questionable shortness of breath. Feels like he is exhaling hot air. Abdominal: No abdominal pain. No nausea. No vomiting. Genitourinary: No dysuria. No hematuria. Musculoskeletal: No myalgias. No arthralgias. Neurologic: No headaches. No dizziness. No lightheadedness. Skin: No rash. No change in color. Psychiatric: No depression. No anxiety. EXAM Physical Exam Narrative Exam Narrative: Afebrile. Vital signs noted. HEENT: Normocephalic. Atraumatic. PERRL, EOMI. Neck soft and supple. No point tenderness or step off. Cardiovascular: Positive bradycardia. No murmurs, rubs, or gallops appreciated. Respiratory: No tachypnea. Lungs clear to auscultation bilaterally. Gastrointestinal: Abdomen soft, nontender, with normoactive bowel sounds. No rebound or guarding. Neurological: Awake. Alert. Nonfocal, nonlateralizing. Skin: No rash. Normal color. No pallor. Musculoskeletal: No pedal edema. Full range of motion extremities. Const Vital Signs: 02/04/24 21:45 02/04/24 22:00 Temperature 96.9 F L Temperature Source Temporal Pulse Rate 44 L Respiratory Rate 16 Blood Pressure 88/65 L Blood Pressure Mean 72 Pulse Ox 94 98 Oxygen Delivery Method Nasal Cannula Oxygen Flow Rate (L/min) 2 MDM MDM MDM Narrative Medical decision making narrative: Concern is for ST elevation TX as I independently interpreted the EKG from triage. On my interpretation of the EKG, there are [address] elevation inferiorly. Code STEMI was activated. I discussed patient with Dr. Guevara. Patient will be given aspirin, Brilinta and a bolus of heparin 4000 units. He was also counseled on not smoking. Patient will be taken to the catheterization lab. Disposition is admit to the ICU in guarded condition after cardiac catheterization. History & Record Review Discussion w/independent historian: Patient Lab Data Attestation: I reviewed the patient's lab results. Labs: Laboratory Results - last 24 hr 02/04/24 22:00 WBC 8.5 RBC 5.05 Hgb 15.5 Hct 47.0 MCV 93.1 MCH 30.7 MCHC 33.0 RDW Std Deviation 43.7 RDW Coeff of Juliane 12.7 Plt Count 333 MPV 9.1 Immature Gran % (Auto) 3.000 H Neut % (Auto) 40.2 L Lymph % (Auto) 43.0 H [place] % (Auto) 9.1 Eos % (Auto) 3.2 Baso % (Auto) 1.5 H Absolute Neuts (auto) 3.4 Absolute Lymphs (auto) 3.67 Nucleated RBC % 0 PT 13.4 INR 1.0 APTT 28.3 Sodium 138 Potassium 3.9 Chloride 106 Carbon Dioxide 28.0 Anion Gap 4 L BUN 15 Creatinine 1.22 Estim Creat Clear Calc 57.15 Est GFR (MDRD) Af Amer 76 Est GFR (MDRD) Non-Af 63 BUN/Creatinine Ratio 12.3 Glucose 135 H Calcium 8.9 Troponin I High Sens 256 H* Management Discussion w/another healthcare provider: Hourly Shift Manager (Dr. Guevara, cardiology) Discharge Plan Disposition Disposition: Acute Care Hospital [facility] Discharge Date/Time: 02/04/24 22:35
[2024-02-04] MEDS: Aspirin 81 MG TAB.CHEW 324 MG PO (22:04)
[2024-02-04] MEDS: TICAGRELOR 90 MG TABLET 180 MG PO (22:04)
--- NOTE | 2024-02-04 22:05 | RAD_ITS ---
INDICATION: chest pain EXAMINATION/TECHNIQUE: X-RAY - XR Chest 1 View COMPARISON: None. FINDINGS: The lungs are clear. The cardiomediastinal silhouette is unremarkable. No pleural effusion or pneumothorax. Degenerative changes of the thoracic spine. RAD/Chest 1 View (Portable) IMPRESSION: No acute radiographic abnormalities. Electronically Signed: Nirav Solis MD at 23:16 EDT ,
[2024-02-04] MEDS: Heparin Injection (Vial) 5,000 UNIT/ML VIAL 4000 UNIT IV (22:06)
[2024-02-04 22:17] VITALS: O2SAT 98
[2024-02-04 22:19] VITALS: BP 139/95; PULSE 51; PULSE 54; RESP 20; TEMP 36.6; O2SAT 95
--- NOTE | 2024-02-04 22:22 | HP.PCM.HOS_ITS ---
[facility] - General General Date of Admission: 02/04/24 Date of Service: 02/04/24 Chief Complaint: Chest Pain with CODE STEMI. [facility] Narrative EVON CUEVAS, is a 68 M with a past medical history of hyperlipidemia, CAD; s/p [place] with stent placed at [place] (2008), history of CVA, tobacco abuse; with subsequent COPD, history of lung nodule, neuropathy, GERD and osteoarthritis; with chronic neck pain and impending C-spine surgery who presents to [facility] ER complaining of chest pain. Mr. Cuevas reports his symptoms began approximately 1 hour prior to arrival while he was at rest lying in bed and began to start feeling poorly. He then developed chest pain that was substernal, pressure-like and nonradiating with nothing seeming to make the pain better or worse. He also admits to associated mild shortness of breath and feeling like he is exhaling hot air. He denies associated fever, chills, nausea, vomiting or diaphoresis. He states that he quit smoking approximately 3 weeks ago because he is supposed to have surgery on his cervical spine. He states he is taking his cholesterol medication and a BASA daily but is currently on no antihypertensive at this time. In the ER he was noted to have EKG changes consistent with STEMI of the inferior wall and he was then started on aspirin, Brilinta and a bolus of IV heparin with cardiology consulted for emergent LHC. Patient was noted to have a 100% occlusion of the RCA with 5 subsequent stents placed and he was then admitted to the ICU for ongoing care for status expected to be greater than 2 midnights. [facility] Medical History GERD (gastroesophageal reflux disease) COPD (chronic obstructive pulmonary disease) Nicotine dependence, cigarettes, uncomplicated Lung nodule Home Medications aspirin 81 mg tablet,delayed release 81 mg PO DAILY heart health 09/26/23 [History Last Taken 10/11/23] atorvastatin 40 mg tablet 40 mg PO DAILY HLD 09/26/23 [History Last Taken 10/11/23] pantoprazole 40 mg tablet,delayed release 40 mg PO DAILY GERD 09/26/23 [History Last Taken 10/12/23] gabapentin 300 mg capsule 300 mg PO QHS nerve pain 10/11/23 [History Last Taken 10/11/23] Allergy/AdvReac Type Severity Reaction Status Date / Time No Known Allergies Allergy Verified 02/04/24 21:45 Social History Smoking Status: Former smoker second hand exposure: Yes ROS ROS Narrative Review of systems: General: Patient denies fever chills HENT: Denies headache, denies stuffy nose, denies sore throat EYES: Denies changes in vision or discharge from eyes. Resp: Denies cough, denies shortness of breath Cardiac: Patient admits to chest pain that is pressure-like as per HPI. GI: Denies abdominal pain, denies changes in bowel, denies nausea or vomiting : Denies changes in urination Extremity: Denies swelling Musculoskeletal: Feels somewhat generally weak and unwell but denies arthralgias or myalgias Neuro: Patient denies headache, paresthesias or focal neurologic weakness. Heme: Denies any bleeding or bruising Skin: Denies rashes Psychiatric: No complaints voiced related uncontrolled depression or anxiety Endocrine: No polyuria, polydipsia or polyphagia. The rest of the 14 point ROS was negative except for positives in HPI. Vital Signs Vital Signs Vital Signs: 02/04/24 21:45 02/04/24 22:00 02/04/24 22:17 Temperature 96.9 F L Temperature Source Temporal Pulse Rate 44 L Respiratory Rate 16 Respiratory Effort Normal Non-Labored Respiratory Depth Normal Respiratory Pattern Normal Blood Pressure 88/65 L Blood Pressure Mean 72 Pulse Ox 94 98 Oxygen Delivery Method Nasal Cannula Nasal Cannula Oxygen Flow Rate (L/min) 2 2 02/04/24 22:19 02/04/24 22:19 Temperature 97.8 F Temperature Source Pulse Rate 54 L 51 L Respiratory Rate 20 H 20 H Respiratory Effort Respiratory Depth Respiratory Pattern Blood Pressure 139/95 H 139/95 H Blood Pressure Mean 109 109 Pulse Ox 95 95 Oxygen Delivery Method Nasal Cannula Oxygen Flow Rate (L/min) 2 Weight Weight: 169 lb Body Mass Index (BMI) 24.9 Physical Exam Const alert, oriented x3, average body habitus and healthy appearing General Appearance: cooperative HEENT normocephalic, head/scalp atraumatic, hearing grossly normal bilaterally and moist oral mucous membranes Eyes PERRL and EOMs intact bilaterally Neck no lymphadenopathy and supple Resp normal respiratory effort, no retractions, no use of accessory muscles and clear to auscultation bilaterally Cardio regular rate and regular rhythm GI normal to inspection, nondistended, normoactive bowel sounds, soft to palpation, non-tender and non-distended Extremity normal to inspection, full ROM and no clubbing, cyanosis or edema Skin Skin Narrative: Patient has no evidence of rash. Neuro oriented x3, CN's II-XII intact bilaterally, moves all extremities and no focal motor deficits Sensorium / Orientation: awake, alert, oriented to person, oriented to place and oriented to time Speech: speech normal Psych affect normal Results Medical Records Data Attestation: I reviewed the patient's medical records Lab / Micro Data Attestation: I reviewed the patient's lab results. 02/04/24 22:00 02/04/24 22:00 Imaging [facility] Imaging Services [address] [place] [address] Chest 1 View (Portable) MR#: [id number] Acct: [id number] Name: JOSH CUEVASYD Toney Yeung Rep #: [id number] : 1955 M 68 From: Nirav Solis MD PCP: Dr. Scott Mejia MD Status: ADM IN Study: Chest 1 View (Portable) Date of Exam: 02/04/24 Exam# [id number] Ordering Dr: Alexey Quinn MD INDICATION: chest pain EXAMINATION/TECHNIQUE: X-RAY - XR Chest 1 View COMPARISON: None. FINDINGS: The lungs are clear. The cardiomediastinal silhouette is unremarkable. No pleural effusion or pneumothorax. Degenerative changes of the thoracic spine. RAD/Chest 1 View (Portable) IMPRESSION: No acute radiographic abnormalities. Electronically Signed: Nirav Solis MD at 23:16 EDT , CC: Dr. Alexey Quinn MD; Dr. Scott Mejia MD ~ Mechanical Detailer: Signed Assessment & Plan Assessment/Plan (1) ST elevation (STEMI) myocardial infarction involving right coronary artery: (2) Coronary artery disease: QUALIFIERS: Coronary Disease-Associated Artery/Lesion type: galena artery [place] vs. transplanted heart: galena heart Associated angina: with unstable angina Qualified Code(s): I25.110 - Atherosclerotic heart disease of galena coronary artery with unstable angina pectoris (3) Hypertension: QUALIFIERS: Hypertension type: unspecified Qualified Code(s): I10 - Essential (primary) hypertension (4) Dyslipidemia: (5) COPD (chronic obstructive pulmonary disease): QUALIFIERS: COPD type: emphysema Emphysema type: centrilobular Q ualified Code(s): J43.2 - Centrilobular emphysema (6) Lung nodule: PLAN: Plan 1. STEMI of inferior wall; status post stents x 5 this admission - Admit to ICU for treatment under STEMI protocol. Continue BASA, Brilinta and IV Heparin as previous. Dr. Guevara's help is greatly appreciated. 2. History of CAD; s/p WI with stent placed at [place] (2008) complicating #1 - Noted with patient only on BASA and statin at time of admission and no agent for blood pressure control. 3. Hyperlipidemia - Resume statin and check Lipid Profile this admission in light of #1. 4. History of CVA - Noted. 5. History of Tobacco abuse; with subsequent COPD - Patient quit smoking ~3 weeks ago to prep for C-spine surgery. 6. History of lung nodule - Noted. 7. Neuropathy - Continue Gabapentin as previous. 8. GERD - Resume PPI. 9. Osteoarthritis; with chronic neck pain and impending C-spine surgery - Give Tylenol prn. 10. DVT prophylaxis - Patient on IV Heparin for #1. Total time: Approximately 55 minutes. Charges/Coding Visit Charges Inpatient E&M: 97853 Init Hosp L2
[2024-02-04 22:25] LABS: Absolute Lymphocyte Count 3.67 X10^3/uL (0.83-4.51); Absolute Neutrophil Count 3.4 X10^3/uL (2.0-7.7); Basophil# 0.13 X10^3/uL; Basophil% 1.5 % (0-1); Eosinophil# 0.27 X10^3/uL; Eosinophils% 3.2 % (0-5); Hemoglobin 15.5 g/dL (13.0-16.5); Lymphocyte # 3.67 X10^3/ul (0.83-4.51); Mean Corpuscular Hgb 30.7 pg (27.0-32.0); Mean Corpuscular Volume 93.1 fL (80-94); Mean Platelet Vol. 9.1 fl (6.2-12.0); Monocyte# 0.78 X10^3/uL; Monocyte% 9.1 % (0-10); NRBC Flagged by Analyzer 0 % (0-5); Neutrophil # 3.42 X10^3/uL (2.7-7.7); Neutrophil % 40.2 % (47-70); Platelet Count 333 K/mm3 (150-450); RBC Distribution Width CV 12.7 % (11.6-14.6); RBC Distribution Width SD 43.7 fl (35.1-43.9); Red Blood Count 5.05 M/mm3 (4.6-6.2); White Blood Count 8.5 K/mm3 (4.4-11.0)
[2024-02-04 22:33] LABS: Partial Thromboplast Time 28.3 Seconds (24.1-36.2); Prothrombin Time (Protime)PT. 13.4 SECONDS (11.7-14.9)
[2024-02-04 22:46] LABS: Anion Gap 4 (5-15); BUN 15 mg/dL (7-18); BUN/Creat Ratio 12.3 RATIO (10-20); Calcium,Total 8.9 mg/dL (8.5-10.1); Chloride 106 mmol/L (98-107); Creatinine, Serum 1.22 mg/dL (0.70-1.30); EST Glomerular Filtration Rate 63 mL/min (>60); Est Glom Filt Rate - Afr Amer 76 mL/min (>60); Estimated Creatinine Clearance 57.15 ml/min; Glucose 135 mg/dL (74-106); Potassium 3.9 mmol/L (3.5-5.1); Sodium Level 138 mmol/L (136-145); Troponin-I HS 256 pg/mL (3.0-78.0)
[2024-02-05] VITALS (27 sets, daily range): BP systolic 101–159; BP diastolic 69–103; PULSE 55–82; RESP 12–20; TEMP 36–36.7; O2SAT 94–100; BMI 25.4
--- NOTE | 2024-02-05 00:27 | ECHOD_ITS ---
Reason For Study: CONGESTIVE HEART FAILURE Procedure This was a 2D Doppler, Color Flow transthoracic echocardiogram. The study was technically difficult. Exam performed portable in ICU/CCU. Left Ventricle Normal size and thickness. LVEF 60%. Posterior basal and inferior basal hypokinesis. Normal diastology. Right Ventricle Normal right ventricle. Atria The left and right atria are normal. Mitral Valve The mitral valve is structurally normal. No prolapse or stenosis seen. Tricuspid Valve Trivial tricuspid valve insufficiency. Unable to estimate RV systolic pressure due to insufficient tricuspid regurgitant envelope. Aortic Valve Trisinus/trileaflet aortic valve. Pulmonic Valve The pulmonic valve is not well visualized. Great Vessels Mildly dilated aortic root. Pericardium/Pleural No pericardial effusion. MMode/2D Measurements & Calculations LVIDd: 4.6 cm IVSd: 0.98 cm LVOT diam: 2.0 cm LVIDs: 3.1 cm LVPWd: 0.84 cm LVOT area: 3.0 cm2 RVDd: 3.0 cm FS: 34.2 % Ao root diam: 3.9 cm LAV(MOD-bp): 29.5 ml LVAd ap4: 22.5 cm2 LAV(MOD-bp) Indexed: 15.3 ml/m2 LVLd ap4: 7.9 cm LAV(MOD-sp2): 50.6 ml EDV(MOD-sp4): 52.4 ml LAV(MOD-sp4): 14.0 ml EDV(sp4-el): 54.6 ml LVAs ap4: 12.0 cm2 LVLs ap4: 6.9 cm ESV(MOD-sp4): 17.8 ml ESV(sp4-el): 17.8 ml EF(MOD-sp4): 66.0 % EF(sp4-el): 67.4 % LVAd ap2: 19.6 cm2 SV(MOD-sp4): 34.6 ml SV(MOD-sp2): 28.1 ml LVLd ap2: 7.4 cm EDV(MOD-sp2): 44.2 ml EDV(sp2-el): 44.1 ml LVAs ap2: 10.7 cm2 LVLs ap2: 6.1 cm ESV(MOD-sp2): 16.0 ml ESV(sp2-el): 15.9 ml EF(MOD-sp2): 63.7 % SV(sp4-el): 36.8 ml LA dimension(2D): 3.0 cm LA A4 area: 8.6 cm2 RA A4 area: 11.4 cm2 TAPSE: 1.7 cm Time Measurements MV dec time: 0.23 sec Doppler Measurements & Calculations MV E max kendall: 65.2 cm/sec Lat Peak E' Kendall: 12.0 cm/sec Med Peak E' Kendall: 8.7 cm/sec MV A max kendall: 58.5 cm/sec E/E' lat: 5.4 E/E' med: 7.5 MV E/A: 1.1 Ao V2 max: 109.6 cm/sec LV V1 max: 75.8 cm/sec MV dec slope: 280.8 cm/sec2 Ao max P.8 mmHg LV V1 max P.3 mmHg Ao V2 mean: 73.3 cm/sec LV V1 mean P.1 mmHg Ao mean P.5 mmHg LV V1 mean: 47.1 cm/sec Ao V2 VTI: 20.5 cm LV V1 VTI: 16.8 cm AV (velocity ratio): 0.82 KINJAL(I,D): 2.5 cm2 KINJAL(V,D): 2.1 cm2 SV(LVOT): 50.9 ml PA V2 max: 56.2 cm/sec PA max PG (full): 0.34 mmHg ECHO/Echo Complete Interpretation Summary LVEF 60%. Posterior basal and inferior basal hypokinesis. Normal diastology. Mildly dilated aortic root. The study was technically difficult. Ordering Physician: Lisa Guevara Referring Physician: Scott Mejia Performed By: Erica Zapata RDCS
--- NOTE | 2024-02-05 00:38 | PCM.CONS.C ---
Assessment & Plan Assessment/Plan (1) ST elevation (STEMI) myocardial infarction involving right coronary artery: PLAN: Coronary angiography revealed 100% proximal RCA. Aspiration thrombectomy was performed to the proximal RCA. After zoroastrian of flow, it was noted that the whole vessel from the proximal to the distal part extending into the right posterior lateral ventricular branch was severely diseased. The distal RCA was treated into the proximal right posterior lateral ventricular branch using 2.5 x 38 mm and 2.5 x 8 mm stents. The proximal to mid RCA was treated using 3.0 x 38 mm and 3.5 x 22 mm stents. There was suspicion for stent strut fracture in the 2.5 x 38 mm stent. This was successfully treated using a 3.0 x 8 mm stent. Excellent results were noted. Recommend aspirin lifelong. Recommend P2Y12 inhibitors lifelong as well. (2) Coronary artery disease: PLAN: See #1 above. (3) Hypertension: PLAN: Beta-blockers, NADIR inhibitors. (4) Dyslipidemia: PLAN: Atorvastatin. (5) COPD (chronic obstructive pulmonary disease): QUALIFIERS: COPD type: emphysema Emphysema type: centrilobular Qualified Code(s): J43.2 - Centrilobular emphysema PLAN: As per internal medicine. (6) Nicotine dependence, cigarettes, uncomplicated: PLAN: Per patient, he has been abstinent for the last 2 to 3 weeks. Counseled to continue to remain abstinent. HPI Consult Data Date of Consult: 02/05/24 HPI Narrative Reason for Consultation: STEMI HPI Narrative: 68-year-old gentleman with past medical history significant for coronary artery disease status post percutaneous intervention to the RCA, nicotine dependence, COPD and dyslipidemia presented to the emergency room with complaints of chest pain that started acutely around 9:00 last night. On arrival in the emergency room, an ECG was done which showed changes consistent with acute inferior myocardial infarction. Subsequently a STEMI alert was called. [facility] Medical History COPD (chronic obstructive pulmonary disease) GERD (gastroesophageal reflux disease) Lung nodule Nicotine dependence, cigarettes, uncomplicated Home Medications aspirin 81 mg tablet,delayed release 81 mg PO DAILY heart health 09/26/23 [History Last Taken 10/11/23] atorvastatin 40 mg tablet 40 mg PO DAILY HLD 09/26/23 [History Last Taken 10/11/23] pantoprazole 40 mg tablet,delayed release 40 mg PO DAILY GERD 09/26/23 [History Last Taken 10/12/23] gabapentin 300 mg capsule 300 mg PO QHS nerve pain 10/11/23 [History Last Taken 10/11/23] Allergy/AdvReac Type Severity Reaction Status Date / Time No Known Allergies Allergy Verified 02/04/24 21:45 Social History Smoking Status: Current every day smoker tobacco type: cigarettes second hand exposure: Yes Physical Exam Narrative Appeared mildly distressed. Heart sounds 1 and 2 noted. Chest clear to auscultation bilaterally. Alert oriented x 3. No ankle edema. Risk Stratification Risk Stratification Applicable: No Objective Data Vital Signs: Vital Signs Temp Pulse Resp BP Pulse Ox O2 Del Method O2 Flow Rate 97.8 F 51 L 20 H 139/95 H 95 Nasal Cannula 2 02/04/24 22:19 02/04/24 22:19 02/04/24 22:19 02/04/24 22:19 02/04/24 22:19 02/04/24 22:19 02/04/24 22:19 Oxygen Flow Rate (L/min) 2 Oxygen Delivery Method Nasal Cannula Weight: 169 lb Body Mass Index (BMI) 24.9 Lab / Micro Data 02/04/24 22:00 02/04/24 22:00 Labs: Laboratory Results - last 24 hr 02/04/24 22:00: WBC 8.5, RBC 5.05, Hgb 15.5, Hct 47.0, MCV 93.1, MCH 30.7, MCHC 33.0, RDW Std Deviation 43.7, RDW Coeff of Juliane 12.7, Plt Count 333, MPV 9.1, Immature Gran % (Auto) 3.000 H, Neut % (Auto) 40.2 L, Lymph % (Auto) 43.0 H, [place] % (Auto) 9.1, Eos % (Auto) 3.2, Baso % (Auto) 1.5 H, Absolute Neuts (auto) 3.4, Absolute Lymphs (auto) 3.67, Nucleated RBC % 0, PT 13.4, INR 1.0, APTT 28.3, Sodium 138, Potassium 3.9, Chloride 106, Carbon Dioxide 28.0, Anion Gap 4 L, BUN 15, Creatinine 1.22, Estim Creat Clear Calc 57.15, Est GFR (MDRD) Af Amer 76, Est GFR (MDRD) Non-Af 63, BUN/Creatinine Ratio 12.3, Glucose 135 H, Calcium 8.9, Troponin I High Sens 256 H* Rhythm Strip Rhythm Strip: Sinus Rhythm Cardiology Labs/Tests 02/04/24 22:00: WBC 8.5, RBC 5.05, Hgb 15.5, Hct 47.0, MCV 93.1, MCH 30.7, MCHC 33.0, Plt Count 333, MPV 9.1, Immature Gran % (Auto) 3.000 H, Neut % (Auto) 40.2 L, Lymph % (Auto) 43.0 H, [place] % (Auto) 9.1, Eos % (Auto) 3.2, Baso % (Auto) 1.5 H, Absolute Neuts (auto) 3.4, Nucleated RBC % 0, PT 13.4, INR 1.0, APTT 28.3, Sodium 138, Potassium 3.9, Chloride 106, Carbon Dioxide 28.0, Anion Gap 4 L, BUN 15, Creatinine 1.22, Est GFR (MDRD) Af Amer 76, Est GFR (MDRD) Non-Af 63, BUN/Creatinine Ratio 12.3, Glucose 135 H, Calcium 8.9 Rhythm: EKG: ECG done in the emergency room showed sinus bradycardia. ST changes consistent with acute inferior ST elevation myocardial infarction was noted. ECHO: Stress Test: Cardiac Cath: PCI: CT Surgery: Holter monitor: EPS: PPM: CXR: Chest CT Scan: Radiography Diagnostic Testing: Radiology Impression Chest X-Ray 02/04/24 22:05 IMPRESSION: No acute radiographic abnormalities. Electronically Signed: Nirav Solis MD at 23:16 EDT ,
--- NOTE | 2024-02-05 01:10 | CL.I_ITS ---
Patient Name: EVON CUEVAS Jr. Study Date: 02/04/2024 Performing: Lisa Guevara MD Ht: 69 inches 175.26 cm : 1955 Wt: 169.2 lbs 76.66 kg Age: 68 Gender: male BSA: 1.92 PROCEDURE(S) PERFORMED DC01-(75068)LHC/COR/LV IC16-(32365/C9606)AMI, ALLIE OR PTCA, ARTERY/GRAFT, SINGLE VESSEL CLINICAL PROFILE AND CO-MORBIDITIES Indications: ACS <= 24 hrs Heart Failure: None CAD Presentations: STEMI. Symptom onset Date/Time: 02/04/2024 21:00:00 Time Estimated CONCLUSIONS 100% Prox RCA 50% Prox LCX 40% Prox LAD LVEF 40-45% Successful ALLIE distal RCA into Prox RPLV using Otho [place] 2.5x38 mm RECOMMENDATIONS ASA Indefinitley DESCRIPTION OF PROCEDURE The patient arrived to the procedure lab. The risks and benefits of the procedure as well as a full description of our services here and lack of surgical backup were fully explained to the patient and/or their significant other prior to the catheterization. The Timeout was completed, verifying the correct patient and procedure. The patient's procedural site was prepped and draped in the usual fashion. Local anesthetic was given subcutaneously to right radial region with Lidocaine 2%. Using a modified Seldinger technique, arterial access was obtained via the right radial artery, a 6Fr sheath was inserted.. Left Coronary Artery selective angiography was performed in multiple views using a 5 Fr. 4.0 [place] catheter. Right Coronary Artery selective angiography was then performed in multiple views using a 5 Fr. 4.0 [place] catheter. Left Ventriculography was performed in THAO projection using a 5 Fr. Pigtail catheter. LV to AO pullback pressures were then recordedThe images were reviewed and options discussed. A decision was then made to proceed with an Intervention, IVUS or other adjunct procedure. jr 4 Guide catheter was inserted and engaged into the RCA. runthrough Guide wire was advanced to the RCA. hang 2.5 x 38 Drug Eluting stent was advanced across the lesion in the right coronary, proximal. Angiogram performed post stent deployment. hang 2.5 x 8 Drug Eluting stent was advanced across the lesion in the right coronary, distal. hang 3.0 x 38 Drug Eluting stent was advanced across the lesion in the right coronary, proximal. Angiogram performed post stent deployment. nc emerge 3.00 x 15 Balloon catheter was inserted post stent distal Angiogram performed post balloon dilatation. nc emerge 3.5 x 15 Balloon catheter was inserted post stent. Angiogram performed post balloon dilatation. hang 3.5 22 Drug Eluting stent was advanced across the lesion in the right coronary, proximal. Angiogram performed post stent deployment. nc emerge 3.00 x 08 Balloon catheter was inserted post stent. 3.75 x 15 Balloon catheter was inserted post stent. nc emerge 3.00 x 8 Balloon catheter was inserted post stent distal rca. Angiogram performed post balloon dilatation. hang 3.0 x 8 Drug Eluting stent was advanced across the lesion in the right coronary, distal. Angiogram performed post stent deployment. nc emerge 3.00 x 8 Balloon catheter was inserted post stent. Angiogram performed post balloon dilatation. The arterial sheath was pulled and a TR Band was applied for hemostasis CORONARY ANGIOGRAPHY DOMINANCE: Right Dominant LEFT HEART ASSESSMENT Left Ventricular Ejection Fraction: by LV Gram 45 % LVEDP: 16 mmHg LEFT MAIN: Tubular 40% Ostial lesion in LMCA LEFT ANTERIOR DESCENDING ARTERY: LAD: Tubular 40% Proximal lesion in LAD Ectasia 50% Mid lesion in LAD RIGHT CORONARY ARTERY: RCA: Tubular Complex 90% Distal lesion in RCA Tubular 70% Mid lesion in RCA Thrombus 100% Proximal lesion in RCA, STENT to 100% INTERVENTION INFORMATION LESION SITE: RCA (Proximal) Lesion Complexity: High/C, lesion length: 58 mm, culprit lesion: Yes, In-stent Thrombosis: Yes Pre Stenosis: 100 % Pre intervention KEREN flow: 0 PROCEDURE: Thrombectomy, Drug Eluting Stent with post dilatation Post Stenosis: 0 % Post intervention KEREN flow: 3 Lesion Devices: Terumo .014 180cm Runthrough Extra Floppy straight Penumbra Penumbra engine canister Penumbra Indigo Penumbra CAT Rx 140cm large lumen Cordis 6 Fr JR4 100cm Guide Catheter Vascular Solutions 6 Kinyarwanda GuideLiner Yunier Sci EMERGE MR 2.50x12 BALLOON Medtronic 2.50 x 38 HANG FRONTIER ALLIE Medtronic 3.0 x 38 HANG FRONTIER ALLIE Yunier Sci NC EMERGE MR 3.50x15 BALLOON Yunier Sci NC EMERGE MR 3.75x15 BALLOON Medtronic 3.5 x 22 HANG FRONTIER ALLIE Yunier Sci NC EMERGE MR 3.50x15 BALLOON LESION SITE: RCA (Distal) Lesion Complexity: High/C, lesion length: 44 mm Pre Stenosis: 90 % Pre intervention KEREN flow: 3 PROCEDURE: Drug Eluting Stent with post dilatation Post Stenosis: 0 % Post intervention KEREN flow: 3 Lesion Devices: Terumo .014 180cm Runthrough Extra Floppy straight Penumbra Penumbra engine canister Penumbra Indigo Penumbra CAT Rx 140cm large lumen Cordis 6 Fr JR4 100cm Guide Catheter Medtronic 2.50 x 08 HANG FRONTIER ALLIE Yunier [employer] NC EMERGE MR 3.00x15 BALLOON Yunier Sci NC EMERGE MR 3.00x08 BALLOON Yunier Sci NC EMERGE MR 3.00x08 BALLOON Medtronic 3.0 x 08 HANG FRONTIER ALLIE COMPLICATIONS No Complications PROCEDURE MEDICATIONS Oxygen: 2 L/min via nasal cannula Amiodarone 150 mg/min 02/04/2024 23:27:10 Amiodarone 150 mg/min 02/04/2024 23:27:10 Amiodarone 1 mg/min 02/05/2024 00:11:29 Heparin 4000 unit(s) IV 02/04/2024 22:45:58 Heparin 2000 unit(s) IV 02/04/2024 23:53:47 Nitro 50 mcg IC 02/04/2024 22:50:56 Nitro 100 mcg IC 02/04/2024 23:13:14 Nitro 100 mcg IC 02/04/2024 23:48:01 SUMMARY OF HEMODYNAMIC DATA Time AIR REST ECG 22:29:37 AO 188/93 (124) SA 22:41:05 AO 151/78 (107) 00:12:58 LV 165/1, 16 00:22:08 LV 158/0, 17 00:22:17 LVp 159/13, 20 00:23:14 AOp 0/0 (63) 00:23:21 AIR REST 01:09:23 Signed By Lisa Guevara MD On 02/05/2024 08:22:06 Signed By Lisa Guevara MD On 02/05/2024 01:08:56 Lisa Guevara MD
[2024-02-05 01:14] LABS: ACT Activated Clotting Time 207 sec (74-137)
[2024-02-05 01:14] LABS: ACT Activated Clotting Time 281 sec (74-137)
[2024-02-05] MEDS: 0.9% Normal Saline (1000mL) 1,000 ML 100 ML IV (01:30)
[2024-02-05 06:37] LABS: Hematocrit 40.4 % (40-54); Hemoglobin 13.8 g/dL (13.0-16.5); Mean Corp Hgb Conc 34.2 g/dL (32-36); Mean Corpuscular Hgb 31.5 pg (27.0-32.0); Mean Corpuscular Volume 92.2 fL (80-94); Mean Platelet Vol. 8.9 fl (6.2-12.0); Platelet Count 276 K/mm3 (150-450); RBC Distribution Width CV 12.7 % (11.6-14.6); RBC Distribution Width SD 43.6 fl (35.1-43.9); Red Blood Count 4.38 M/mm3 (4.6-6.2); White Blood Count 9.3 K/mm3 (4.4-11.0)
[2024-02-05 06:54] LABS: ALB/GLOB Ratio 0.8 RATIO (0.9-2.4); AST(SGOT) 102 U/L (15-37); Alanine Aminotransfer ALT/SGPT 27 U/L (16-61); Albumin, Serum 2.8 g/dL (3.2-5.0); Alkaline Phosphatase 30 U/L (45-117); Anion Gap 4 (5-15); BUN 16 mg/dL (7-18); BUN/Creat Ratio 16.9 RATIO (10-20); Calcium,Total 8.3 mg/dL (8.5-10.1); Chloride 110 mmol/L (98-107); Cholesterol 124 mg/dL (200); Creatinine, Serum 0.95 mg/dL (0.70-1.30); EST Glomerular Filtration Rate 84 mL/min (>60); Est Glom Filt Rate - Afr Amer 101 mL/min (>60); Estimated Creatinine Clearance 73.39 ml/min; Globulin 3.3 g/dL (2.2-4.2); Glucose 99 mg/dL (74-106); High Density Lipoprotein 37 mg/dL; Potassium 3.8 mmol/L (3.5-5.1); Protein, Total 6.1 g/dL (6.4-8.2); Sodium Level 140 mmol/L (136-145); Triglycerides 206 mg/dL; Very Low Density Lipoprotein 41 mg/dL (5-40)
--- NOTE | 2024-02-05 08:51 | ECQM.STEMI ---
STEMI Balloon/Aspiration Date-Time Date of Balloon/Aspiration:: 02/04/24 Time of Balloon/Aspiration:: 22:47
[2024-02-05] MEDS: Aspirin E.C. 81 MG Tablet PO (08:54)
[2024-02-05] MEDS: Carvedilol 3.125 MG TABLET PO (08:54)
[2024-02-05] MEDS: TICAGRELOR 90 MG TABLET PO ×2 (08:54→20:25)
[2024-02-05] MEDS: Lisinopril 5 MG Tablet PO (08:54)
--- NOTE | 2024-02-05 09:45 | PN.HOSP_ITS ---
Reason for Visit Reason for Visit: Diagnoses Hyperlipidemia, unspecified (02/04/24) Essential (primary) hypertension (02/04/24) ST elevation (STEMI) myocardial infarction involving right coronary artery (02/04/24) Atherosclerotic heart disease of [place] coronary artery with unstable angina pectoris (02/04/24) Centrilobular emphysema (02/04/24) Solitary pulmonary nodule (02/04/24) Objective Data Objective Data Vital Signs: Vital Signs Temp Pulse Resp BP Pulse Ox O2 Del Method O2 Flow Rate 98 F 60 16 154/94 H 94 Room Air 2 02/05/24 04:00 02/05/24 08:00 02/05/24 08:00 02/05/24 08:00 02/05/24 08:00 02/05/24 08:00 02/05/24 07:00 Oxygen Flow Rate (L/min) 2 Oxygen Delivery Method Room Air Weight: 171 lb 15.369 oz Body Mass Index (BMI) 25.4 Intake & Output: Intake and Output for Last 24 Hours 02/03/24 02/04/24 02/05/24 23:59 23:59 23:59 Intake Total 681.67 / 681.67 Output Total 1300 / 1300 Balance -618.33 / -618.33 Lab / Micro Data 02/05/24 06:20 02/05/24 06:20 Labs: Laboratory Results - last 24 hr 02/04/24 22:00: WBC 8.5, RBC 5.05, Hgb 15.5, Hct 47.0, MCV 93.1, MCH 30.7, MCHC 33.0, RDW Std Deviation 43.7, RDW Coeff of Juliane 12.7, Plt Count 333, MPV 9.1, I mmature Gran % (Auto) 3.000 H, Neut % (Auto) 40.2 L, Lymph % (Auto) 43.0 H, [place] % (Auto) 9.1, Eos % (Auto) 3.2, Baso % (Auto) 1.5 H, Absolute Neuts (auto) 3.4, Absolute Lymphs (auto) 3.67, Nucleated RBC % 0, PT 13.4, INR 1.0, APTT 28.3, Sodium 138, Potassium 3.9, Chloride 106, Carbon Dioxide 28.0, Anion Gap 4 L, BUN 15, Creatinine 1.22, Estim Creat Clear Calc 57.15, Est GFR (MDRD) Af Amer 76, Est GFR (MDRD) Non-Af 63, BUN/Creatinine Ratio 12.3, Glucose 135 H, Calcium 8.9, Troponin I High Sens 256 H* 02/04/24 22:40: Activated Clotting Time 207 H 02/05/24 00:22: Activated Clotting Time 281 H 02/05/24 06:20: WBC 9.3, RBC 4.38 L, Hgb 13.8, Hct 40.4, MCV 92.2, MCH 31.5, MCHC 34.2, RDW Std Deviation 43.6, RDW Coeff of Juliane 12.7, Plt Count 276, MPV 8.9, Sodium 140, Potassium 3.8, Chloride 110 H, Carbon Dioxide 26.0, Anion Gap 4 L, BUN 16, Creatinine 0.95, Estim Creat Clear Calc 73.39, Est GFR (MDRD) Af Amer 101, Est GFR (MDRD) Non-Af 84, BUN/Creatinine Ratio 16.9, Glucose 99, Calcium 8.3 L, Total Bilirubin 0.30, AST 102 H, ALT 27, Alkaline Phosphatase 30 L, Total Protein 6.1 L, Albumin 2.8 L, Globulin 3.3, Albumin/Globulin Ratio 0.8 L, T riglycerides 206 H, Cholesterol 124, LDL Cholesterol 46, VLDL Cholesterol 41 H, HDL Cholesterol 37 L Radiography Diagnostic Testing: Radiology Impression Chest X-Ray 02/04/24 22:05 IMPRESSION: No acute radiographic abnormalities. Electronically Signed: Nirav Solis MD at 23:16 EDT , Rhythm Strip Rhythm Strip: Sinus Rhythm Physical Exam Narrative Patient smokes cigarettes a pack per day since age of 8, not a smoking for last 20 days in anticipation of cervical spine surgery. Admitted with a STEMI with symptoms of chest pressure, anginal quality and shortness of breath, palpitation and dizziness Physical exam General: Alert, Oriented x3, Cooperative HEENT: Atraumatic, PERRLA, EOMI, Normocephalic Oral: No Gingival or Mucosal Lesions/ Ulcerations Neck: Supple, No JVD, Negative Carotid Bruits Chest wall/Lungs: Air entry diminished in bilateral lung bases. No crepitation/rhonchi Cardiovascular: Regular rate, Regular Rhythm, Normal S1, Normal S2, No M/G/R Abdomen: Bowel Sounds Present, Soft, Non Tender, Non-Distended : No dysuria. No renal angle tenderness. No suprapubic tenderness. Extremities: No edema, Capillary Refill Less than 3 Seconds Skin: No rashes, No breakdown Musculoskeletal: No Tenderness to Palpation of Joints or Extremities Neurological: Cranial nerves II-XII grossly intact, DTR 2+/4. No acute focal neurological deficit. Psych/Mental Status: Normal Affect, Appropriate. Assessment & Plan Assessment/Plan (1) ST elevation (STEMI) myocardial infarction involving right coronary artery: (2) Coronary artery disease: QUALIFIERS: Associated angina: with unstable angina Coronary Disease-Associated Artery/Lesion type: [place] artery [place] vs. transplanted heart: [place] heart Qualified Code(s): I25.110 - Atherosclerotic heart disease of [place] coronary artery with unstable angina pectoris (3) Hypertension: QUALIFIERS: Hypertension type: unspecified Qualified Code(s): I10 - Essential (primary) hypertension (4) Dyslipidemia: (5) COPD (chronic obstructive pulmonary disease): QUALIFIERS: COPD type: emphysema Emphysema type: centrilobular Q ualified Code(s): J43.2 - Centrilobular emphysema (6) Lung nodule: PLAN: Plan 68-year-old gentleman admitted with CAD admitted with chest pressure feeling, nonradiating with no exacerbating or relieving factors he could not breathe, severe shortness of breath dizziness. 1. STEMI of inferior wall; status post stents x 5 this admission - Admit to ICU for treatment under STEMI protocol. Continue BASA, Brilinta and IV Heparin as previous. Dr. Guevara's help is greatly appreciated. Cardiac cath showed 100% proximal RCA, 50% proximal left circumflex, 40% proximal LAD, EF 40 to 45%. Successful aspiration thrombectomy, PTCA/ALLIE proximal and mid RCA, distal RCA into proximal RPLV 2. History of CAD; s/p [place] with stent placed at [place] (2008) - Noted with patient only on BASA and statin at time of admission and no agent for blood pressure control. 3. Hyperlipidemia - Resume statin and check Lipid Profile this admission in light of #1. 4. History of CVA - Noted. 5. History of Tobacco abuse; with subsequent COPD - Patient quit smoking ~3 weeks ago to prep for C-spine surgery. 6. History of lung nodule - Noted. 7. Neuropathy - Continue Gabapentin as previous. 8. GERD - Resume PPI. 9. Osteoarthritis; with chronic neck pain and impending C-spine surgery - Give Tylenol prn. 10. DVT prophylaxis - Patient on IV Heparin for #1. Charges/Coding Visit Charges Inpatient E&M: 22253 Subs Hosp L3
--- NOTE | 2024-02-05 10:00 | CASEMGMT ---
MINI PFEIFFER Assessment Face to Face with patient for initial transition planning/care coordination assessment. MINI PFEIFFER introduced self and role at [facility], pt voices understanding. Pt is A&Ox4 and is resting comfortably in bed and is calm. Care providers, pharmacy, and demographics verified. Admitting dx: STEMI LACE Strata: 3 PCP: Roberto Specialists: Aaliyah (Ortho)Leonidas (Pulm) Dr. Jimenez (RA) Preferred Pharmacy: [facility] Insurance: [employer] Prescription Benefit: Yes LNOK: Alisefredis Putnam (W) Living Arrangements: Pt lives with his and 29 y/o son in a single story home with 2 steps to enter ADLs/IADLs: Ind Transportation: Self, DME: FWW. Denies all other DME uses or needs at this time HHC/SNF: Denies skilled HHC history. Denies being admitted to a SNF before. Pt states that he was attending OP therapy in September through [facility]. Pt states that he would like to continue this after DC. Pt?s goal: Home with OP Tx Plan: Pt denies the need for SNF or HHC. Pt states that he would like to return to [facility] for OP therapy services. Pt states that he will make his own appt. This MINI PFEIFFER told the pt that CM will provide Rx for this once the MD signs the Rx. CM to follow for safe DC from [facility]. Rose Garrido RN, CM
--- NOTE | 2024-02-05 10:20 | CRPHASE1_ITS ---
Patient Communication Patient Information Former Patient:: Phase I PHII Cardiac Rehab Discussed with Patient:: Yes Guide to Cardiac Rehab Given to Patient:: Yes Cardiac Rehab Facility Choice List Given to Patient:: Yes Communication to Cardiac Rehab Choice Program [facility] CR PHII:: Communication Given to CR Sales And Marketing Engineer:: Lisa Guevara Phase II Cardiac Rehab:: Yes Sessions:: 36 sessions - 3 days/wk, 12 weeks Cardiac Rehabilitation Info Program Information Cardiac Rehabilitation Program Information: Cardiac Rehab The cardiac rehab team at [facility] consists of highly skilled exercise physiologists, nurses, respiratory therapists and physicians working together with you. Our purpose is to help you have a full recovery and achieve the goals you set for yourself. Over the years many of our patients have returned to activities they assumed they would never do again! We can help restore your confidence and motivation to make lifestyle changes that can have a significant impact on your health and quality of life! We can help answer questions and concerns you may have about exercise, lifestyle, medications, diet, stress and anxiety which are common following a hospitalization. WE monitor ECG and vital signs during exercise and discuss your progress with you and report to your physician(s). Cardiac Rehab is proven to help reduce readmissions, improve functional capacity and lower recurrence of problems with your heart. Our Cardiac Rehab program is Certified by the [place] [employer] of Cardio-Vascular and Pulmonary Rehabilitation (AACVPR) and Accredited by the [place] [employer] through our [facility]. You can contact us at . We invite you to call us with your questions or to get started in our program. If you have other questions or concerns be sure to ask your physician/provider during your follow-up visit. WE look forward to seeing you!
--- NOTE | 2024-02-05 10:20 | CRPH1.INSTRU ---
General Education Discussed with Patient CAD and cardiac anatomy and function:: Patient communicates acknowledgment Explanation of diagnoses and procedures:: Patient communicates acknowledgment Sign/Symptoms of CO:: Patient communicates acknowledgment Antiplatelet therapy: Patient communicates acknowledgment Proper use of NTG-SL: Patient communicates acknowledgment Emergency procedures and activation of EMS: Patient communicates acknowledgment Compliance of all prescribed medications: Patient communicates acknowledgment Smoking Risk Factors Patient Nicotine/Smoking Risk Factors Are:: Cigarettes Recommendations Recommendations Include:: Smoking cessation strategies/Smoking packet and Participation in a smoking cessation program Response Code Nicotine/Smoking Response Code:: Patient communicates acknowledgment Dyslipidemia Risk Factors Patient Dyslipidemia Risk Factors Are:: Total Cholesterol, Triglycerides, HDL and LDL Recommendations Recommendations Include:: Lipid profile not available Response Code Dyslipidemia Response Code:: Patient communicates acknowledgment Hypertension Recommendations Recommendations Include:: Maintain BP <130/85, DASH dietary guidelines, Decrease/maintain normal body weight and Moderation of ETOH Response Code Hypertension:: Patient communicates acknowledgment Heart Disease Risk Factors Patient Heart Disease Risk Factors Are:: Previous cardiac event Recommendations Recommendations Include:: Educated family members of their risk and Educated family members of importance of prevention of heart disease Response Code Heart Disease Response Code:: Patient communicates acknowledgment and Needs reinforcement Sedentary Risk Factors Patient Sedentary Risk Factors Are:: Lack of regular exercise Recommendations Recommendations Include:: Aerobic exercise 5-7 times/week for 20-30 minutes continuously, Benefits of regular exercise, Discussed home walking program and Monitored Outpatient Cardiac Rehab Response Code Sedentary Response Code:: Patient communicates acknowledgment
--- NOTE | 2024-02-05 13:46 | PCM.PN.CARD ---
Subjective Subjective Denies any complaints. Objective Data Vital Signs: Vital Signs Temp Pulse Resp BP Pulse Ox O2 Del Method O2 Flow Rate 96.8 F L 66 14 131/94 H 97 Room Air 2 02/05/24 12:00 02/05/24 12:00 02/05/24 12:00 02/05/24 12:00 02/05/24 12:00 02/05/24 12:00 02/05/24 07:00 Oxygen Flow Rate (L/min) 2 Oxygen Delivery Method Room Air Weight: 171 lb 15.369 oz Body Mass Index (BMI) 25.4 Intake & Output: Intake and Output for Last 24 Hours 02/03/24 02/04/24 02/05/24 23:59 23:59 23:59 Intake Total 1680.00 / 1680.00 Output Total 1300 / 1300 Balance 380.00 / 380.00 Lab / Micro Data 02/05/24 06:20 02/05/24 06:20 Labs: Laboratory Results - last 24 hr 02/04/24 22:00: WBC 8.5, RBC 5.05, Hgb 15.5, Hct 47.0, MCV 93.1, MCH 30.7, MCHC 33.0, RDW Std Deviation 43.7, RDW Coeff of Juliane 12.7, Plt Count 333, MPV 9.1, Immature Gran % (Auto) 3.000 H, Neut % (Auto) 40.2 L, Lymph % (Auto) 43.0 H, [place] % (Auto) 9.1, Eos % (Auto) 3.2, Baso % (Auto) 1.5 H, Absolute Neuts (auto) 3.4, Absolute Lymphs (auto) 3.67, Nucleated RBC % 0, PT 13.4, INR 1.0, APTT 28.3, Sodium 138, Potassium 3.9, Chloride 106, Carbon Dioxide 28.0, Anion Gap 4 L, BUN 15, Creatinine 1.22, Estim Creat Clear Calc 57.15, Est GFR (MDRD) Af Amer 76, Est GFR (MDRD) Non-Af 63, BUN/Creatinine Ratio 12.3, Glucose 135 H, Calcium 8.9, Troponin I High Sens 256 H* 02/04/24 22:40: Activated Clotting Time 207 H 02/05/24 00:22: Activated Clotting Time 281 H 02/05/24 06:20: WBC 9.3, RBC 4.38 L, Hgb 13.8, Hct 40.4, MCV 92.2, MCH 31.5, MCHC 34.2, RDW Std Deviation 43.6, RDW Coeff of Juliane 12.7, Plt Count 276, MPV 8.9, Sodium 140, Potassium 3.8, Chloride 110 H, Carbon Dioxide 26.0, Anion Gap 4 L, BUN 16, Creatinine 0.95, Estim Creat Clear Calc 73.39, Est GFR (MDRD) Af Amer 101, Est GFR (MDRD) Non-Af 84, BUN/Creatinine Ratio 16.9, Glucose 99, Calcium 8.3 L, Total Bilirubin 0.30, AST 102 H, ALT 27, Alkaline Phosphatase 30 L, Total Protein 6.1 L, Albumin 2.8 L, Globulin 3.3, Albumin/Globulin Ratio 0.8 L, Triglycerides 206 H, Cholesterol 124, LDL Cholesterol 46, VLDL Cholesterol 41 H, HDL Cholesterol 37 L Rhythm Strip Rhythm Strip: Sinus Rhythm Cardiology Labs/Tests 02/04/24 22:00: WBC 8.5, RBC 5.05, Hgb 15.5, Hct 47.0, MCV 93.1, MCH 30.7, MCHC 33.0, Plt Count 333, MPV 9.1, Immature Gran % (Auto) 3.000 H, Neut % (Auto) 40.2 L, Lymph % (Auto) 43.0 H, [place] % (Auto) 9.1, Eos % (Auto) 3.2, Baso % (Auto) 1.5 H, Absolute Neuts (auto) 3.4, Nucleated RBC % 0, PT 13.4, INR 1.0, APTT 28.3, Sodium 138, Potassium 3.9, Chloride 106, Carbon Dioxide 28.0, Anion Gap 4 L, BUN 15, Creatinine 1.22, Est GFR (MDRD) Af Amer 76, Est GFR (MDRD) Non-Af 63, BUN/Creatinine Ratio 12.3, Glucose 135 H, Calcium 8.9 02/05/24 06:20: WBC 9.3, RBC 4.38 L, Hgb 13.8, Hct 40.4, MCV 92.2, MCH 31.5, MCHC 34.2, Plt Count 276, MPV 8.9, Sodium 140, Potassium 3.8, Chloride 110 H, Carbon Dioxide 26.0, Anion Gap 4 L, BUN 16, Creatinine 0.95, Est GFR (MDRD) Af Amer 101, Est GFR (MDRD) Non-Af 84, BUN/Creatinine Ratio 16.9, Glucose 99, Calcium 8.3 L, Total Bilirubin 0.30, Triglycerides 206 H, Cholesterol 124, LDL Cholesterol 46, VLDL Cholesterol 41 H, HDL Cholesterol 37 L Rhythm: EKG: ECHO: Stress Test: Cardiac Cath: PCI: CT Surgery: Holter monitor: EPS: PPM: CXR: Chest CT Scan: Radiography Diagnostic Testing: Radiology Impression Chest X-Ray 02/04/24 22:05 IMPRESSION: No acute radiographic abnormalities. Electronically Signed: Nirav Solis MD at 23:16 EDT , Echocardiogram 02/05/24 00:27 Interpretation Summary LVEF 60%. Posterior basal and inferior basal hypokinesis. Normal diastology. Mildly dilated aortic root. The study was technically difficult. Ordering Physician: Lisa Guevara Referring Physician: Scott Mejia Performed By: Erica Zapata [facility] Physical Exam Narrative Appeared mildly distressed. Heart sounds 1 and 2 noted. Chest clear to auscultation bilaterally. Alert oriented x 3. No ankle edema. Assessment & Plan Assessment/Plan (1) ST elevation (STEMI) myocardial infarction involving right coronary artery: PLAN: Status post drug-eluting stents to the RCA. Stable. Asymptomatic. Recommend aspirin lifelong. Recommend P2Y12 inhibitors lifelong as well. (2) Coronary artery disease: QUALIFIERS: Coronary Disease-Associated Artery/Lesion type: [place] artery [place] vs. transplanted heart: [place] heart Associated angina: with unstable angina Qualified Code(s): I25.110 - Atherosclerotic heart disease of [place] coronary artery with unstable angina pectoris PLAN: See #1 above. (3) Hypertension: QUALIFIERS: Hypertension type: unspecified Qualified Code(s): I10 - Essential (primary) hypertension PLAN: Beta-blockers, NADIR inhibitors. Increase carvedilol to 6.25 mg twice daily. (4) Dyslipidemia: PLAN: Atorvastatin. (5) COPD (chronic obstructive pulmonary disease): QUALIFIERS: COPD type: emphysema Emphysema type: centrilobular Qualified Code(s): J43.2 - Centrilobular emphysema PLAN: As per internal medicine. (6) Nicotine dependence, cigarettes, uncomplicated: PLAN: Per patient, he has been abstinent for the last 2 to 3 weeks. Counseled to continue to remain abstinent.
--- NOTE | 2024-02-05 13:47 | PCM.PN.BLA ---
Progress Note May discharge home tomorrow morning if remains hemodynamically stable.
--- NOTE | 2024-02-05 15:20 | CHAPLAIN ---
Type of Pastoral Visit _x__ Initial Visit ___ Follow-up Visit ___ On-call Visit ___ General Patient Visit ___ Spiritual Assessment ___ Family Conference ___ Bereavement ___ Rapid Response ___ Code Blue ___ Other (describe below) Pastoral Care Referral From _x__ Patient ___ Family ___ Nurse ___ Physician ___ Application Chemist ___ Fast Food Shift Lead ___ Other (describe below) Sacrament/Intervention _x__ Active listening ___ Anointing ___ Catholic ___ Bereavement ___ Communion ___ Roberta exploration ___ ___ Life review ___ Prayer ___ Reconciliation ___ Sacrament of Sick ___ Supportive presence ___ Wedding ___ Other (describe below) Pastoral Comments patient reports feeling better, has support from a family member in the room, and has no new concerns
[2024-02-05] MEDS: Carvedilol 6.25 MG Tablet PO (20:25)
[2024-02-05] MEDS: Atorvastatin Calcium 80 MG Tablet PO (20:25)
[2024-02-06] VITALS (11 sets, daily range): BP systolic 117–146; BP diastolic 72–92; PULSE 54–67; RESP 12–17; TEMP 36.2–36.6; O2SAT 96–100; BMI 25.9
[2024-02-06] MEDS: 0.9% Saline Lock 10 ML Syringe IV (03:49)
[2024-02-06 04:01] LABS: Absolute Lymphocyte Count 2.26 X10^3/uL (0.83-4.51); Absolute Neutrophil Count 6.3 X10^3/uL (2.0-7.7); Basophil# 0.09 X10^3/uL; Basophil% 0.9 % (0-1); Eosinophil# 0.28 X10^3/uL; Eosinophils% 2.8 % (0-5); Hematocrit 39.6 % (40-54); Hemoglobin 12.8 g/dL (13.0-16.5); Lymphocyte # 2.26 X10^3/ul (0.83-4.51); Lymphocyte % 22.9 % (19-41); Mean Corp Hgb Conc 32.3 g/dL (32-36); Mean Corpuscular Hgb 30.1 pg (27.0-32.0); Mean Corpuscular Volume 93.2 fL (80-94); Monocyte# 0.79 X10^3/uL; NRBC Flagged by Analyzer 0 % (0-5); Neutrophil # 6.28 X10^3/uL (2.7-7.7); Neutrophil % 63.7 % (47-70); Platelet Count 262 K/mm3 (150-450); RBC Distribution Width CV 12.9 % (11.6-14.6); RBC Distribution Width SD 44.2 fl (35.1-43.9); Red Blood Count 4.25 M/mm3 (4.6-6.2); White Blood Count 9.9 K/mm3 (4.4-11.0)
[2024-02-06 04:14] LABS: Anion Gap 2 (5-15); BUN 15 mg/dL (7-18); BUN/Creat Ratio 15.6 RATIO (10-20); Calcium,Total 8.5 mg/dL (8.5-10.1); Chloride 110 mmol/L (98-107); Creatinine, Serum 0.96 mg/dL (0.70-1.30); EST Glomerular Filtration Rate 82 mL/min (>60); Est Glom Filt Rate - Afr Amer 99 mL/min (>60); Estimated Creatinine Clearance 72.62 ml/min; Glucose 96 mg/dL (74-106); Potassium 3.9 mmol/L (3.5-5.1); Sodium Level 141 mmol/L (136-145)
--- NOTE | 2024-02-06 08:39 | DCINST_ITS ---
Discharge Instructions Diet Discharge Diet: Low fat / Low cholesterol and 2000 mg Sodium Diet Activity Discharge Activity: Return to Normal Activity Weight Bearing Status: Weight bearing as tolerated Dressing / Incision Call your doctor if you observe: Fever of 101 or Higher, Coldness, Increased Pain, Numbness or Tingling, Change in Color, Inability to urinate, Inability to have a bowel movement, Shortness of breath, Dizziness, Fainting spells, Swelling in the ankles, Chest pain, Prolonged hiccupping, Increased palpitations (irregular heartbeat) and Calf discomfort Follow Up Care When: IN 2 WEEKS Test Results: Test results from this visit will be discussed in further detail at your follow- up appointment, if applicable. Discharge Plan Admission Admit Date/Time: 02/05/24 08:54 Primary Reason for Your Visit: inferior wall STEMI Attending Provider: Hever Cool Primary Care Provider: Scott Mejia Consulting Providers: Lisa Guevara; Chase West Discharge Orders/Prescriptions Prescriptions: No Action pantoprazole 40 mg tablet,delayed release (DR/EC) 40 mg PO DAILY Patient Comments: ONE TABLET TABLET BY MOUTH DAILY atorvastatin 40 mg tablet 40 mg PO DAILY Patient Comments: TAKE 1 TABLET BY MOUTH EVERY DAY aspirin 81 mg tablet,delayed release (DR/EC) 81 mg PO DAILY gabapentin 300 mg capsule 300 mg PO QHS Referrals / Follow Up: Scott Mejia MD [Primary Care Provider] -
--- NOTE | 2024-02-06 08:39 | PCM.DC ---
Discharge Instructions Diet Discharge Diet: Low fat / Low cholesterol and 2000 mg Sodium Diet Activity Discharge Activity: Return to Normal Activity Weight Bearing Status: Weight bearing as tolerated Dressing / Incision Call your doctor if you observe: Fever of 101 or Higher, Coldness, Increased Pain, Numbness or Tingling, Change in Color, Inability to urinate, Inability to have a bowel movement, Shortness of breath, Dizziness, Fainting spells, Swelling in the ankles, Chest pain, Prolonged hiccupping, Increased palpitations (irregular heartbeat) and Calf discomfort Follow Up Care When: IN 2 WEEKS Test Results: Test results from this visit will be discussed in further detail at your follow-up appointment, if applicable. Discharge Plan Admission Admit Date/Time: 02/05/24 08:54 Primary Reason for Your Visit: inferior wall STEMI Attending Provider: Hever Cool Primary Care Provider: Scott Mejia Consulting Providers: Lisa Guevara; Chase West Instructions Additional Instructions / Restrictions: Cardiac rehab. Discharge Orders/Prescriptions Prescriptions: New atorvastatin 80 mg Tablet 80 mg PO QHS 30 Days Qty: 30 4RF carvedilol 6.25 mg Tablet 6.25 mg PO BID 30 Days Qty: 60 4RF Rx Instructions: Hold for heart less than 50 or systolic blood pressure less than 100 mmHg. lisinopril 5 mg Tablet 5 mg PO DAILY 30 Days Qty: 30 2RF Brilinta 90 mg Tablet 90 mg PO BID 30 Days Qty: 60 4RF Continued pantoprazole 40 mg tablet,delayed release (DR/EC) 40 mg PO DAILY Patient Comments: ONE TABLET TABLET BY MOUTH DAILY gabapentin 300 mg capsule 300 mg PO QHS aspirin 81 mg tablet,delayed release (DR/EC) 81 mg PO DAILY 30 Days Qty: 30 4RF Discontinued atorvastatin 40 mg tablet 40 mg PO DAILY Patient Comments: TAKE 1 TABLET BY MOUTH EVERY DAY Referrals / Follow Up: Lisa Guevara MD [Med Staff - Active Staff] - Within 1 Month Scott Mejia MD [Primary Care Provider] - Within 2 Weeks Disposition Disposition (needs filled in before D/C Order can be placed): Home, Self Care
[2024-02-06] MEDS: TICAGRELOR 90 MG TABLET PO (08:56)
[2024-02-06] MEDS: Lisinopril 5 MG Tablet PO (08:56)
[2024-02-06] MEDS: Carvedilol 6.25 MG Tablet PO (08:56)
[2024-02-06] MEDS: Aspirin E.C. 81 MG Tablet PO (08:56)
--- NOTE | 2024-02-06 09:07 | PCM.DC.SUM ---
Providers Date of Admission: 02/05/24 Date of Discharge: 02/06/24 Primary Care Physician: Dr. Scott Mejia MD Reason For Visit: STEMI Diagnosis Discharge Diagnosis (1) ST elevation (STEMI) myocardial infarction involving right coronary artery: Status: Acute Code(s): I21.11 - ST elevation (STEMI) myocardial infarction involving right coronary artery (2) Coronary artery disease: Status: Acute Code(s): I25.10 - Atherosclerotic heart disease of [place] coronary artery without angina pectoris Qualifiers: Coronary Disease-Associated Artery/Lesion type: [place] artery [place] vs. transplanted heart: [place] heart Associated angina: with unstable angina Qualified Code(s): I25.110 - Atherosclerotic heart disease of [place] coronary artery with unstable angina pectoris (3) Hypertension: Status: Chronic Code(s): I10 - Essential (primary) hypertension Qualifiers: Hypertension type: unspecified Qualified Code(s): I10 - Essential (primary) hypertension (4) Dyslipidemia: Status: Acute Code(s): E78.5 - Hyperlipidemia, unspecified (5) COPD (chronic obstructive pulmonary disease): Status: Chronic Code(s): J44.9 - Chronic obstructive pulmonary disease, unspecified Qualifiers: COPD type: emphysema Emphysema type: centrilobular Qualified Code(s): J43.2 - Centrilobular emphysema (6) Nicotine dependence, cigarettes, uncomplicated: Status: Chronic Code(s): F17.210 - Nicotine dependence, cigarettes, uncomplicated Plan 68-year-old gentleman admitted with CAD admitted with chest pressure feeling, nonradiating with no exacerbating or relieving factors he could not breathe, severe shortness of breath dizziness. 1. STEMI of inferior wall; status post stents x 5 this admission - Admit to ICU for treatment under STEMI protocol. Continue baby aspirin, Brilinta. Patient was on IV heparin drip. Cardiac cath showed 100% proximal RCA, 50% proximal left circumflex, 40% proximal LAD, EF 40 to 45%. Successful aspiration thrombectomy, PTCA/ALLIE proximal and mid RCA, distal RCA into proximal RPLV 02/05: Heart rate and blood pressure is optimized. On telemetry heart rate around 50/min. Sinus rhythm. Patient is on baby aspirin, Brilinta, carvedilol, lisinopril and high intensity atorvastatin. Prescription sent to patient's preferred pharmacy. 2. History of CAD; s/p NM with stent placed at [place] (2008) - Noted with patient only on BASA and statin at time of admission. 3. Hyperlipidemia - on atorvastatin 80 mg daily. Fasting profile show triglyceride 206, LDL 46 total cholesterol 124. s 4. History of CVA - Noted. 5. History of Tobacco abuse; with subsequent COPD - Patient quit smoking ~3 weeks ago to prep for C-spine surgery. 6. History of lung nodule - Noted. 7. Neuropathy - Continue Gabapentin as previous. 8. GERD - Resume PPI. 9. Osteoarthritis; with chronic neck pain and impending C-spine surgery - Give Tylenol prn. 10. DVT prophylaxis - was on IV heparin drip Discharge medication reconciliation done. Discharge follow-up instructions completed. Discharge process discussed with the patient and all questions were answered to patient's satisfaction. Follow with PCP in 1 to 2 weeks Total time spent, exact 35 minutes on discharge meds reconciliation, examination, coordination of care with nurses and ancillary staff, review of imaging and blood test and discussion with the patient on follow-up instructions. Medications at Discharge Home Medications pantoprazole 40 mg tablet,delayed release 40 mg PO DAILY GERD 09/26/23 gabapentin 300 mg capsule 300 mg PO QHS nerve pain 10/11/23 aspirin 81 mg tablet,delayed release 81 mg PO DAILY heart health 30 days #30 tabs 02/06/24 atorvastatin 80 mg tablet 80 mg PO QHS 30 days #30 tabs 24 carvedilol 6.25 mg tablet 6.25 mg PO BID 30 days #60 tabs 02/06/24 lisinopril 5 mg tablet 5 mg PO DAILY 30 days #30 tabs 02/06/24 ticagrelor 90 mg tablet (Brilinta) 90 mg PO BID 30 days #60 tabs 02/06/24 Physical Exam Narrative No acute event overnight. Cardiac telemetry sinus rhythm. Patient is doing well Patient smokes cigarettes a pack per day since age of 8, not a smoking for last 20 days in anticipation of cervical spine surgery. Physical exam General: Alert, Oriented x3, Cooperative HEENT: Atraumatic, PERRLA, EOMI, Normocephalic Oral: No Gingival or Mucosal Lesions/ Ulcerations Neck: Supple, No JVD, Negative Carotid Bruits Chest wall/Lungs: Air entry diminished in bilateral lung bases. No crepitation/rhonchi Cardiovascular: Regular rate, Regular Rhythm, Normal S1, Normal S2, No M/G/R Abdomen: Bowel Sounds Present, Soft, Non Tender, Non-Distended : No dysuria. No renal angle tenderness. No suprapubic tenderness. Extremities: No edema, Capillary Refill Less than 3 Seconds Skin: Right radial artery no hematoma. No rashes, No breakdown Musculoskeletal: No Tenderness to Palpation of Joints or Extremities Neurological: Cranial nerves II-XII grossly intact, DTR 2+/4. No acute focal neurological deficit. Psych/Mental Status: Normal Affect, Appropriate. Weight / BMI Weight Weight: 175 lb Body Mass Index (BMI) 25.9 ABG / Lab / Microbiology Data 02/06/24 03:45 02/06/24 03:45 Laboratory: Laboratory Results - last 24 hr 02/06/24 03:45: WBC 9.9, RBC 4.25 L, Hgb 12.8 L, Hct 39.6 L, MCV 93.2, MCH 30.1, MCHC 32.3 D, RDW Std Deviation 44.2 H, RDW Coeff of Juliane 12.9, Plt Count 262, MPV 9.0, Immature Gran % (Auto) 1.700 H, Neut % (Auto) 63.7, Lymph % (Auto) 22.9, [place] % (Auto) 8.0, Eos % (Auto) 2.8, Baso % (Auto) 0.9, Absolute Neuts (auto) 6.3, Absolute Lymphs (auto) 2.26, Nucleated RBC % 0, Sodium 141, Potassium 3.9, Chloride 110 H, Carbon Dioxide 29.0, Anion Gap 2 L, BUN 15, Creatinine 0.96, Estim Creat Clear Calc 72.62, Est GFR (MDRD) Af Amer 99, Est GFR (MDRD) Non-Af 82, BUN/Creatinine Ratio 15.6, Glucose 96, Calcium 8.5 Radiography Diagnostic Testing: Radiology Impression Echocardiogram 02/05/24 00:27 Interpretation Summary LVEF 60%. Posterior basal and inferior basal hypokinesis. Normal diastology. Mildly dilated aortic root. The study was technically difficult. Ordering Physician: Lisa Guevara Referring Physician: Scott Mejia Performed By: Erica Zapata SHY D/C Instructions Discharge Diet: Low fat / Low cholesterol and 2000 mg Sodium Diet Weight Bearing Status: Weight bearing as tolerated Call your doctor if you observe: Fever of 101 or Higher, Coldness, Increased Pain, Numbness or Tingling, Change in Color, Inability to urinate, Inability to have a bowel movement, Shortness of breath, Dizziness, Fainting spells, Swelling in the ankles, Chest pain, Prolonged hiccupping, Increased palpitations (irregular heartbeat) and Calf discomfort When: IN 2 WEEKS Meaningful Use Info Meaningful Use Meaningful Use Diagnoses (Choose all that apply): AMI AMI/Post PCI/Angioplasty Aspirin given w/in 24hrs of arrival?: Yes ASA at discharge?: Yes Statins at discharge?: Yes González/ARB at discharge?: Yes Beta Shannon at discharge?: Yes Done w/ Acute NM measure.: Yes Ischemic Stroke Statin Dosing Therapy Reference: STATIN DOSE THERAPY REFERENCE: * Patients > 75 years receive moderate or high dose statin therapy. * Patients 75 years or YOUNGER should receive HIGH intensity statin dose unless contraindicated. You will be required to document reason for non-treatment if statin daily dose does not meet guidelines. HIGH DOSE STATIN THERAPY DAILY Atorvastatin > than or = to 40 mg Rosuvastatin > than or = to 20 mg Amlodipine + Atorvastatin > than or = to 2.5/40 mg Ezetimibe + Simvastatin 10/80 mg Simvastatin 80mg Discharge Plan Admission Admit Date/Time: 02/05/24 08:54 Primary Reason for Your Visit: inferior wall STEMI Attending Provider: Hever Cool Primary Care Provider: Scott Mejia Consulting Providers: Lisa Guevara; Chase West Instructions Additional Instructions / Restrictions: Cardiac rehab. Discharge Orders/Prescriptions Prescriptions: New atorvastatin 80 mg Tablet 80 mg PO QHS 30 Days Qty: 30 4RF carvedilol 6.25 mg Tablet 6.25 mg PO BID 30 Days Qty: 60 4RF Rx Instructions: Hold for heart less than 50 or systolic blood pressure less than 100 mmHg. lisinopril 5 mg Tablet 5 mg PO DAILY 30 Days Qty: 30 2RF Brilinta 90 mg Tablet 90 mg PO BID 30 Days Qty: 60 4RF Continued pantoprazole 40 mg tablet,delayed release (DR/EC) 40 mg PO DAILY Patient Comments: ONE TABLET TABLET BY MOUTH DAILY gabapentin 300 mg capsule 300 mg PO QHS aspirin 81 mg tablet,delayed release (DR/EC) 81 mg PO DAILY 30 Days Qty: 30 4RF Discontinued atorvastatin 40 mg tablet 40 mg PO DAILY Patient Comments: TAKE 1 TABLET BY MOUTH EVERY DAY Referrals / Follow Up: Lisa Guevara MD [Med Staff - Active Staff] - Within 1 Month Scott Mejia MD [Primary Care Provider] - Within 2 Weeks Disposition Disposition (needs filled in before D/C Order can be placed): Home, Self Care Charges/Coding Visit Charges Inpatient E&M: 81668 Disch Hosp >30min
--- NOTE | 2024-02-06 09:23 | CASEMGMT ---
Dr. Cool placed order for pt DC. Pt is prescribed Brilinta. TC to the pt preferred pharmacy ([facility]) and they state the medication will be 42$ for the first month after insurance. Dr. Cool also signs Rx for OP therapy. Physical Rx handed to pt at this time, copy placed in pt chart. Pt states he will set this up on his own. This RN CM also noticed that Dr. Cool prescribed 4 refills for the Brilinta. This RN CM gave the pt the Brilinta savings card to the pt incase he wanted to use this for one of his refills. Pt educated that he can only use this once in his life however. Pt states understanding and thanks this RN CM. Pt denies further DC needs at this time. Rose MÉNDEZ RN CM
--- NOTE | 2024-02-11 11:06 | ECQM.STEMI ---
STEMI STEMI ED Door Time / Other REG STEMI EKG Time (1) ST elevation (STEMI) myocardial infarction involving right coronary artery: Acute ~02/04/24 21:44
== END 2024-02-06 13:24 | disposition home or self-care (01) | DRG 321 ==
LOC: ED 22:03 → ICU 22:11
PROVIDERS: Admitting Provider Internal Medicine; Emergency Provider Emergency Medicine; PCP Family Medicine; Referring Provider Internal Medicine Cardiovascular Disease; Visit Provider Internal Medicine
DX: I21.19 ST elevation (STEMI) myocardial infarction involving other coronary artery of inferior wall (principal); J43.2 Centrilobular emphysema; I25.110 Atherosclerotic heart disease of native coronary artery with unstable angina pectoris; I10 Essential (primary) hypertension; K21.9 Gastro-esophageal reflux disease without esophagitis; E78.5 Hyperlipidemia, unspecified; I25.2 Old myocardial infarction; G62.9 Polyneuropathy, unspecified; M47.812 Spondylosis without myelopathy or radiculopathy, cervical region; G89.29 Other chronic pain; Z95.5 Presence of coronary angioplasty implant and graft; Z79.82 Long term (current) use of aspirin; Z79.899 Other long term (current) drug therapy; Z86.73 Personal history of transient ischemic attack (TIA), and cerebral infarction without residual deficits; Z87.891 Personal history of nicotine dependence
CPT/HCPCS: 71045; 80048; 80053; 80061; 84484; 85025; 85027; 85347; 85610; 85730; 92941; 93005; 93306; 93458; 97161; 99285; 99406; C1757; C1874; J7030; J7040; Q9967; A4216; C1725; C1769; C1887; C1894; C9606; J1327

== ENCOUNTER → 2024-02-12 | Outpatient (CLI) | payer MEDICARE, SELFPAY ==
--- NOTE | 2024-02-12 08:17 | CR.HP_ITS ---
CR - History & Physical General Arrival date:: 02/12/24 Arrival time:: 08:15 Date of Referral:: 02/05/24 Date of CR Evaluation:: 02/12/24 Referring Physician: Dr. Lisa Guevara Primary Diagnosis: NC-STEMI, PCI w/coronary stenting History of Present Cardiac Event Onset Date Acute Myocardial Infarction within 12 months:: Yes (ST elevation myocardial infarction (STEMI)) PTCA or coronary stenting:: Yes Vessel: PCI w/ALLIE x 5 to RCA Type of Symptoms:: Pressure on chest, hot breathing, short of breath, dizzy Interventions with present event:: Heart cath (emergent) Were there any complications?: No Medications Ambulatory Orders ?Medication ?Instructions ?Recorded pantoprazole 40 mg tablet,delayed 40 mg PO DAILY GERD 09/26/23 release gabapentin 300 mg capsule 300 mg PO QHS nerve pain 10/11/23 aspirin 81 mg tablet,delayed 81 mg PO DAILY heart health 30 02/06/24 release days #30 tabs atorvastatin 80 mg tablet 80 mg PO QHS 30 days #30 tabs 02/06/24 carvedilol 6.25 mg tablet 6.25 mg PO BID 30 days #60 tabs 02/06/24 lisinopril 5 mg tablet 5 mg PO DAILY 30 days #30 tabs 02/06/24 ticagrelor 90 mg tablet (Brilinta) 90 mg PO BID 30 days #60 tabs 02/06/24 Allergies Allergies No Known Allergies Allergy (Verified 02/04/24 21:45) Sleep Disorder Evaluation Hx of Sleep Apnea: No Do you snore loudly (louder than talking or can be heard through closed doors)?: Yes (not all the time) Do you often feel tired/ fatigued/ sleepy during daytime?: Yes Has anyone observed you stop breathing during sleep?: No History of Hypertension (for STOP score): Yes STOP Results: Positive Advanced Directives Advanced Directives Power of Chairman & Ceo: No Living Will: No Advance Directives Information Provided: Yes Advance Directives on File: No Past Medical History Covid-19 Screening Physicial Symptoms Fever: No Unexplained muscle aches: No Current respiratory symptoms: Yes (Emphysema, COPD) Upper respiratory infections symptoms: No Gastro-intestinal symptoms: No Byj-Dhyc-[id number] symptoms: No Other Clinical Concerns Has tested positive for COVID-19 in last 30 days: No Exposure Risk Had contact w/person w/symptoms or Covid-19 (+) last 14 days: No Has High Risk Exposures ID'd by Health dept/Inf Control team: No Pertinent Comorbidities 65 years or older:: Yes Lives in Assisted Living facility:: No Has a chronic lung disease or moderate to severe asthma:: Yes Has a serious heart condition:: No Immunocompromised:: No Severely obese (Body Mass Index of 40 or higher):: No Diabetic:: No Has chronic kidney disease undergoing dialysis:: No Has liver disease:: No Past Medical Illness Past Medical History (Updated 02/11/24 @ 11:07 by Kahlil Welch) GERD (gastroesophageal reflux disease) K21.9 COPD (chronic obstructive pulmonary disease) J44.9 Nicotine dependence, cigarettes, uncomplicated F17.210 Lung nodule R91.1 Past Surgical History Past Surgical History (Updated 02/06/24 @ 10:03 by Aaliyah Aparicio) Stented coronary artery (02/05/24) Z95.5 Aspiration thrombectomy was performed to the proximal RCA. After taoism of flow, it was noted that the whole vessel from the proximal to the distal part extending into the right posterior lateral ventricular branch was severely diseased. The distal RCA was treated into the proximal right posterior lateral ventricular branch using 2.5 x 38 mm and 2.5 x 8 mm stents. The proximal to mid RCA was treated using 3.0 x 38 mm and 3.5 x 22 mm stents. There was suspicion for stent strut fracture in the 2.5 x 38 mm sten t. This was successfully treated using a 3.0 x 8 mm stent. Social History Smoking History Smoking Status: Former smoker Years Smokin Packs Smoked per Day: 1 Hx Smoking Cessation Date: 02/04/24 Hx Tobacco Use: Yes Hx Smoking Exposure: Yes Alcohol Use Alcohol Usage: No Substance Abuse Hx Substance Use: No Occupation Occupation (List type of work in comments):: Retired Hobbies, Recreation, Social Activities Hobbies: Woodworking Recreational Activities: I am able to engage in a few activities Social Environment Status Marital Status: Current Living Arrangements Living Environment:: Spouse Children How many children do you have?: 2 Do any of your children live nearby?: Yes ([place] [facility]) Safety Do you feel safe in your surroundings?: Yes Assistance Do you need any assistance at home?: Some; getting uphelp with shoes & socks Review of Systems Review of Systems Hints Review of Present Symptoms: Reports Shortness of Breath at Rest, Shortness of Breath with Exertion, Dizziness/Lightheadedness (kind of get lightheaded, called [facility] and believe its from the medications), Fatigue, Appetite - Normal and Appetite - Special Diet (Low salt); Denies Angina, Heart Arrhy thmia/Irregularities or Sleep - Normal Pain Is Patient Pain Free?: No Risk Factor Assessment Chief Complaint Chief Complaint: S/P STEMI and PCI w/ALLIE x 5 to the RCA Vital Signs Temperature: 97.8 F Respiratory Rate: 18 Pulse Ox: 95 Blood Pressure: 139/95 Pulse Pulse Rate: 51 Pulse Rhythm: Regular Hypertension How long have you been treated?: Just recently On medication(s)?: yes Blood Pressure Sitting - Left Arm: 139/95 Blood Cholesterol/Lipids Total Cholesterol (mg/dL) Goal = less than 200 mg/dL: 124 HDL Cholesterol (mg/dL) Goal = less than 40 mg/dL: 37 LDL Cholesterol (mg/dL) Goal = less than 70 mg/dL: 46 Triglycerides (mg/dL) Goal = less than 150 mg/dL: 206 Diabetes Nutrition Referral for Diabetes: No Obesity Height: 5 ft 9 in Weight:: 175 lb Weight in Pounds: 175.0 lbs Weight [facility]: [facility] ([facility] Body Mass Index (BMI): 25.8 Nutritional Referral for Obesity: No Physical Inactivity Physical Inactivity: None Risk Stratification Risk Guidelines: Lowest Risk: Risk Factor for Diabetes, Risk Factor for Obesity and Risk Factor for Depression, Moderate Risk: Risk Factor for Dyslipidemia and Risk Factor for Hypertension and Highest Risk: Risk Factor for Smoking and Risk Factor for Sedentary Lifestyle For Smoking Smoking Risk Guidelines For Dyslipidemia Dyslipidemia Risk Guidelines For Diabetes Mellitus Diabetes Risk Guidelines For Obesity/Overweight Obesity/Overweight Risk Guidelines For Hypertension Hypertension Risk Guidelines For Sedentary Lifestyle Sedentary Lifestyle Risk Guidelines For Depression Depression Risk Guidelines Motivation Motivation to Participate On a scale of 1 to 10, how prepared are you to commit to attending program?: 10 What do you see as barriers to successfully being able to complete the program?: no What do you see as the benefits of succesfully completing the program? In other words, what do you hope to get out of participating in the program?: better health Are there issues you are dealing with that will interfere with completing the program?: no Do you have a spouse or signficant other, family or friends who will help support you to complete the program?: Yes
--- NOTE | 2024-02-12 08:18 | PCM.CR.ITP ---
Diagnosis General Information Admitting Diagnosis: PCI w/coronary stenting ALLIE x 5 to the RCA Secondary Diagnosis: COPD, ASHD, HTN, HLD, CVA Personal Learning Style:: Audio/Visual and Written Barriers to Learning: Hearing Impairment and Vision Impairment Stage of change r/t lifestyle modifications:: Action Gave educational material for:: Treating Heart Disease, How The Heart Works, What it means to have Heart Disease, How Coronary Artery Disease is Diagnosed, Heart Procedures, What Heart Medications Do, Risk Factors & Modifications, Living an Active Life, Nutrition, Emotions & Heart Disease, Stress Management & Relaxation and Sleep Disorders & Heart Disease Education/Goals Individual Counseling: Initial Assessment: Nicotine/Smoking, Abnormal Cholesterol Levels, High Blood Pressure, C. High Triglycerides >150, Hypertension, Low HDL <40/Males or <50/Females and Sedentary Lifestyle Cardiac Rehabilitation Goals Personal Goals: Initial Assessment: Quit smoking (participate in smoking cessation (Quit at time of DC), Improve management of stress and emotions, Improve energy level, Participate in home exercise program, Get back to work, or to resume activities faster, Improve knowledge of cardiac disease, Improve muscle strength and endurance, Improve diet and eating habits (eat healthier) and Control risk factors (learn risk factor modification) Scale for measuring improvement of personal goals Diagnosis & Disease Process Outcomes/Goals: Pt IDs own risk factors & lifestyle modifications by Session 10, Verbalizes symptoms of angina & response by session 3. and Pt independently manages Plan/Interventions: Assist Pt to ID & engage in lifestyle modification to reduce CVD risk, Instruct on individual risk factors, Review symptoms of angina & emergency actions and Review secondary diagnosis & identify educational needs. Safety Referral to Physical Therapy: No Referral to [facility] Case Management: No Fall Risk Assessed:: Yes Assistive Devices:: Walker Exercise - Initial Assessment Visit Date of Eval: 02/12/24 Session #:: 0 (pre-program) Mets: Pre-: >5 METS for 30 minutes by discharge Stress Test Resting HR (bpm):: 51 Blood Pressure: 139/95 EKG: Normal Sinus Rhythm Physician Prescribed Exercise Modalities: Airdyne, NuStep and Lateral Bushel Girl Frequency: 3x/week for 12 weeks [36 sessions] Intensity: 60-80% of age predicted maximum heart rate reserve Duration: 30 - 45 minutes Current METSs:: 2.0 Target Heart Rate:: 91-113 Resting Blood Pressure: 139/95 EKG Type: Normal Sinus Rhythm Outcomes & Goals Goals:: Verbalizes understanding of THR, RPE & goal METS by session 6, Documents in home exercise log/reports 30 min aerobic 5 day/wk by DC and Demonstrates accurate pulse taking by DC Intervention & Plan Exercise Program Goals: Instruct on personal THR & RPE, Instruct on MET level & personal MET goal, Show patient to take own pulse /validate performance until accurate and Instruct on home exercise Physical Activity Home Exercise Physical Activity - Home Exercise: Safe Exercise, Warm-up, Self-monitoring, Cool-Down, Home Exercise > 30 min Daily and Sitting Time <3 hours/daily Outcomes & Goals Outcomes/Goals: Demonstrates correct Warm-up/exercise Cool-Down (S3) if = 2.5 METs, Verbalizes symptoms of exercise intolerance by Session 3 (S3) and Demonstrate safe equipment use (S3) & follows exercise prescrition (6) Intervention & Plan Plan/Intervention: Instruct warm-up & cool-down if exercising at > 2 METs, Instruct on symptoms of exercise intolerance & actions to take, Instruct & monitor on saf and Assess intial functional capacity & safety risk Nutrition - Initial Assessment Program Goals Nutrition Program Goals Patient has diagnosis of Hyperlipidemia (ICD E78)?: Yes Visit Date of Eval: 02/12/24 Session #:: 0 (Pre-program evaluation) Cholesterol/Lipids (Other Core Measures) Triglycerides (mg/dL): 206 Total Cholesterol (mg/dL): 124 LDL Cholesterol (mg/dL): 46 HDL Cholesterol (mg/dL): 37 Determine presence & major risk factors that modify LDL goal: Cigarette smoking, Hypertension or hypertensive medication, Low HDL cholesterol <40 mg/dL* and Age men > 45 years; women >/= 55 years Outcomes/Goals: Pt IDs own risk factors & lifestyle modifications by Session 10, Verbalizes symptoms of angina & response by session 3. and Pt independently manages Intervention/Plan: Instruct on personal lipid levels & lipid goals/NCEP guidelines and Instruct on cholesterol Referral to dietitian:: Yes Diabetes (Other Core Measures) Diabetes Type: Not Applicable Weight Mgt (Other Care) Not Applicable: Yes Height: 5 ft 9 in Weight:: 175 lb BMI: 25.8 Diagnosis Overweight/Obesity BMI> 30% ICD-10 E66: No Diagnosis High BMI/Morbid Obesity BMI> 35% ICD-10 Z68: No Outcomes/Goals: Pt sets, maintains & shows weight loss goal & trend during rehab Intervention/Plan: Instruct on ideal BMI & set weight loss goal w/patient Healthy Eating Habits Will attend diet classes:: Yes Outcomes/Goals:: Consume diet rich in vegs,fruits,whole grain/high fiber,fish,lean meat and Limit sat/trans fats,cholesterol & added salts & sugars Intervention/Plan:: Assess current eating habits Education Gave educational materials for:: Healthy eating Core - Initial Assessment Visit Date of Eval: 02/12/24 Session #:: 0 (pre-program evaluation) Medication Compliance Preventative Medication(s):: Aspirin, Ticagrelor/P2Y12 inhibitor, Statin/lipid and Beta nubia H/O mental health issues: depression, anxiety, or addiction?: No Doesn?t believe in the benefits of treatment?: No Believes medications are unnecessary or harmful?: No Has a concern about medication side effects?: No Expresses concern over the cost of medications?: No Outcomes/Goals: Verbalizes medications,desired effect & common side effects @ DC, Pt self-reports following medication regimen and Keeps card in wallet w/medications listed by DC Interventions/plans: Instruct on medication effects & side effects, Review medication list w/patient every two weeks and Instruct importance of taking meds as ordered & assist problem solving Tobacco Use Tobacco Use: Cigarettes How long ago did you quit using tobacco products?: Less than 6 months ago Do you use smokeless tobacco?: No Outcomes/Goals: Smoking cessation achieved or maintained by discharge and Identify aids/strategies for achieving smoking cessation by session 6 Interventions/plan: Instruct on effects of smoking & provide smoking cessation resource, Assist pt to set quit date & provide encouragement, Assist pt to develop strategies to achieve/maintain quit date and Assist pt w/nicotine replacement & medication for cessation success Hypertension Hypertension Diagnosis:: Hypertension ICD-10 I10 Resting Blood Pressure:: 139/95 [place] [employer] Hypertension Guidelines Outcomes/Goals: Able to verbalize/achieve optimal blood pressure <130/80 and Incorporates diet changes & exercise for blood pressure control by DC Interventions/plan: Instruct on optimal blood pressure, hypertension & medications and Instruct on effects of sodium, alcohol, stress, exercise &hypertension Tobacco Cessation Referral Smoking Cessation Referral:: Yes Individual Education/Counseling:: Yes Education Schedule Given:: Yes Psychosocial - Initial Assess VIsit Date of Eval: 02/12/24 Session #:: 0 (pre-program evaluation) Not Applicable: Yes History of previous Mental disease:: No Target Goals Target Goals Psychosocial Test Tool Used:: [employer] Power QOL Cardiac and PHQ-9 Questionnaire phq-9 Severity Referral to Behavioral Health PS - Interventions: Yes: Attend Stress Management Classes and No: Referral to Behavioral Health if PHQ-9 score >9:, No: Referral to [facility] and No: Referral to Physician if PHQ-9 if score is 5-9: Outcomes/Goals: See list Psychosocial Outcomes/Goals:: ID's personal stressors & 2 strategies to manage stress by discharge Intervention/Plan: See List Interventions/Plan:: Assess stressors,coping strategies & signs of derpression on admission, Instruct/assist pt to develop coping & personal stress Mgt strategies, Instruct patient to recognize signs & symptoms of depression and Instruct patient to recog Patient Health Questionnaire PHQ-9 Screening Initial Assessment: 1. Little interest or pleasure in doing things: Not at all 2. Feeling down, depressed, or hopeless: Not at all 3. Trouble falling or staying asleep, or sleeping too much: Several days 4. Feeling tired or having little energy: Several days 5. Poor appetite or overeating: Not at all 6. Feeling bad about yourself -- or that you are a failure or have let yourself or your family down: Several days 7. Trouble concentrating on things, such as reading the newspaper or watching television: Not at all 8. Moving or speaking so slowly that other people could have noticed. Or the opposite - being so fidgety or restless that you have been moving around a lot more than usual: Not at all 9. Thoughts that you would be better off , or of hurting yourself in some way: Not at all How difficult have these problems made it for you to do your work, take care of things at home, or get along with other people?: Not difficult at all Total Score: 3 SUSY-Q SV Test Statements CAD is a disease of the arteries in the heart: False Examples of risk factors for heart disease: True Angina is chest pain or discomfort: I Don't Know The benefits of resistance training include: True Eating more meat and dairy products: False Anti-platelet medications such as aspirin are important: True The only effective way to manage stress: False An exercise warm-up slowly increases heart rate: True Prepared, processed foods usually have high sodium: True Depression is common after a heart attack: I Don't Know The statin medications lower cholesterol: True To control blood pressure, lower the amount of sodium: True If someone gets chest discomfort during walking: False Transfats are partially hydrogenated vegetable oils: True Sleep apnea that is not treated increases the risk: I Don't Know To control cholesterol, one should become a vegetarian: False Someone knows if he/she is exercising at the right level: True Diabetes cannot be prevented with exercise & health eating: I Don't Know Stress is a large risk for heart attack: True A diet that can help lower blood pressure is rich in: True Total Score Total Correct Responses: 16 Self-Efficacy 6-Item Scale Initial Assessment: We would like to know how confident you are in doing certain activities. Please select your confidence level for: Fatigue Select Number: 7 Physical Discomfort or Pain Select Number: 7 Emotional Distress Select Number: 7 Other Symptoms or Health Problems Select Number: 7 Different Tasks and Activities Select Number: 7 Medication Select Number: 7 Total Score:: 7 Nutrition Survey Nutrition Survey Instructions Scoring Instructions Nutrition Survey Initial: Have you lost >10 lbs over the past 2 months without trying?: No Are you following a special diet at home for diabetes, low fat, or low salt?: Yes Are you interested in meeting with a dietitian for help understanding your diet?: No Do you eat less than 3 meals a day?: Yes Do you eat fatty meats (rose, sausage, ribs, etc), fried foods, desserts, large amounts of salad dressings, margarine, butter, or cheese most days?: No Do you have food allergies? [Enter types in comment field]: No Do you eat in restaurants more than 3 times a week?: No Do you season food with salt, seasoning salt, or garlic salt?: No Do you used canned, boxed, frozen meals, or soups, seasoning packets?: No Total Score:: 2 Exercise - Final/Discharge Physician Prescribed Exercise Modalities: Airdyne, NuJules and Lateral Bushel Girl Frequency: 3x/week for 12 weeks [36 sessions] Intensity: 60-80% of age predicted maximum heart rate reserve Current METSs:: 2.0 Target Heart Rate:: 91-113 Nutrition - 30-Day Assessment Weight Mgt (Other Care) Height: 5 ft 9 in Weight:: 175 lb BMI: 25.8 Nutrition - 60-Day Assessment Weight Mgt (Other Care) Height: 5 ft 9 in Weight:: 175 lb BMI: 25.8 Core - 30-Day Assessment Visit Session #:: 0 (pre-program) Core - Final Assessment Hypertension Resting Blood Pressure:: 139/95 [employer] Hypertension Guidelines Core - 60-Day Assessment Hypertension Resting Blood Pressure:: 139/95 [place] [employer] Hypertension Guidelines Psychosocial - 30-Day Assess Target Goals Target Goals Referral to Behavioral Health PS - Interventions: Yes: Attend Stress Management Classes and No: Referral to Behavioral Health if PHQ-9 score >9:, No: Referral to [facility] and No: Referral to Physician if PHQ-9 if score is 5-9: Psychosocial - 60-Day Assess Target Goals Target Goals Referral to Behavioral Health PS - Interventions: Yes: Attend Stress Management Classes and No: Referral to Behavioral Health if PHQ-9 score >9:, No: Referral to [facility] and No: Referral to Physician if PHQ-9 if score is 5-9: Psychosocial - 90-Day Assess Target Goals Target Goals Referral to Behavioral Health PS - Interventions: Yes: Attend Stress Management Classes and No: Referral to Behavioral Health if PHQ-9 score >9:, No: Referral to [facility] and No: Referral to Physician if PHQ-9 if score is 5-9: Psychosocial - Final Assessmen Target Goals Target Goals Referral to Behavioral Health PS - Interventions: Yes: Attend Stress Management Classes and No: Referral to Behavioral Health if PHQ-9 score >9:, No: Referral to [facility] and No: Referral to Physician if PHQ-9 if score is 5-9: Nutrition - 90-Day Assessment Weight Mgt (Other Care) Height: 5 ft 9 in Weight:: 175 lb BMI: 25.8 Nutrition - Final Assessment Program Goals Patient has diagnosis of Hyperlipidemia (ICD E78)?: Yes Weight Mgt (Other Care) Height: 5 ft 9 in Weight:: 175 lb BMI: 25.8
[2024-02-12 08:30] VITALS: BP 139/95; PULSE 51; RESP 18; TEMP 36.6; O2SAT 95; BMI 25.8
[2024-02-12 08:42] VITALS: BP 139/95; BMI 25.8
== END | disposition home or self-care (01) ==
LOC: CR 08:11
PROVIDERS: PCP Family Medicine; Referring Provider Internal Medicine Cardiovascular Disease; Visit Provider Internal Medicine Cardiovascular Disease
DX: I10 Essential (primary) hypertension (principal); I25.10 Atherosclerotic heart disease of native coronary artery without angina pectoris; E78.5 Hyperlipidemia, unspecified

== ENCOUNTER → 2024-02-14 | Outpatient (CLI) | payer MEDICARE, SELFPAY ==
[2024-02-12 08:42] VITALS: BMI 25.8
[2024-02-14 12:24] LABS: Absolute Neutrophil Count 4.6 X10^3/uL (2.0-7.7); Basophil% 1.3 % (0-1); Eosinophil# 0.24 X10^3/uL; Eosinophils% 3.1 % (0-5); Hematocrit 43.4 % (40-54); Hemoglobin 14.2 g/dL (13.0-16.5); Lymphocyte % 24.6 % (19-41); Mean Corp Hgb Conc 32.7 g/dL (32-36); Mean Corpuscular Hgb 30.6 pg (27.0-32.0); Mean Corpuscular Volume 93.5 fL (80-94); Mean Platelet Vol. 9.1 fl (6.2-12.0); Monocyte# 0.73 X10^3/uL; Monocyte% 9.5 % (0-10); NRBC Flagged by Analyzer 0 % (0-5); Neutrophil # 4.61 X10^3/uL (2.7-7.7); Neutrophil % 59.7 % (47-70); Platelet Count 325 K/mm3 (150-450); RBC Distribution Width CV 12.9 % (11.6-14.6); RBC Distribution Width SD 44.1 fl (35.1-43.9); Red Blood Count 4.64 M/mm3 (4.6-6.2); White Blood Count 7.7 K/mm3 (4.4-11.0)
[2024-02-14 12:45] LABS: ALB/GLOB Ratio 0.8 RATIO (0.9-2.4); AST(SGOT) 17 U/L (15-37); Alanine Aminotransfer ALT/SGPT 25 U/L (16-61); Albumin, Serum 3.1 g/dL (3.2-5.0); Alkaline Phosphatase 33 U/L (45-117); Anion Gap 7 (5-15); BUN 24 mg/dL (7-18); BUN/Creat Ratio 22.4 RATIO (10-20); Calcium,Total 9.4 mg/dL (8.5-10.1); Chloride 105 mmol/L (98-107); Cholesterol 143 mg/dL (200); Creatinine, Serum 1.07 mg/dL (0.70-1.30); EST Glomerular Filtration Rate 73 mL/min (>60); Est Glom Filt Rate - Afr Amer 88 mL/min (>60); Globulin 3.9 g/dL (2.2-4.2); Glucose 98 mg/dL (74-106); High Density Lipoprotein 40 mg/dL; Potassium 4.6 mmol/L (3.5-5.1); Sodium Level 137 mmol/L (136-145); Triglycerides 100 mg/dL; Very Low Density Lipoprotein 20 mg/dL (5-40)
== END | disposition home or self-care (01) ==
LOC: MFPLAB 10:38
PROVIDERS: PCP Family Medicine; Visit Provider Family Medicine
DX: K21.9 Gastro-esophageal reflux disease without esophagitis (principal); E78.5 Hyperlipidemia, unspecified
CPT/HCPCS: 36415; 80053; 80061; 85025

== ENCOUNTER 2024-02-15 18:59 | Emergency (ER) | payer MEDICARE, SELFPAY ==
[2024-02-12 08:42] VITALS: BMI 25.8
[2024-02-15] VITALS (10 sets, daily range): BP systolic 129–142; BP diastolic 88–105; PULSE 56–66; RESP 14–23; TEMP 36.1; O2SAT 95–98; BMI 24.7
--- NOTE | 2024-02-15 20:08 | EDS_ITS ---
HPI <JORGE Major - Last Filed: 02/15/24 21:56> History of Present Illness Chief Complaint: Shortness of Breath Narrative Narrative: Patient is a 68-year-old male with history of COPD, past history of tobacco use whose quit greater than 1 month ago who had a recent STEMI with [address] Guevara on February 05, 2024. Patient dates he was released home 8 to 9 days ago. Patient states he is having his episodes where he breathes out and feels like he is unable to get enough oxygen breathing in. Patient states that these come in waves, it does not matter what he is doing. He denies any fever or chills, denies any nausea or vomiting. He denies any chest pain. PFSH <JORGE Major - Last Filed: 02/15/24 21:56> [facility] Medical History (Updated 02/16/24 @ 00:[address] Jack Prather, DO) Dyslipidemia ST elevation (STEMI) myocardial infarction involving right coronary artery (~02/04/24) GERD (gastroesophageal reflux disease) COPD (chronic obstructive pulmonary disease) Nicotine dependence, cigarettes, uncomplicated Lung nodule Home Medications ?Medication ?Instructions ?Recorded ?Last Taken ?Type pantoprazole 40 mg tablet,delayed 40 mg PO DAILY GERD 09/26/23 10/12/23 History release gabapentin 300 mg capsule 300 mg PO QHS nerve pain 10/11/23 10/11/23 History aspirin 81 mg tablet,delayed 81 mg PO DAILY heart health 30 02/06/24 Unknown Rx release days #30 tabs atorvastatin 80 mg tablet 80 mg PO QHS 30 days #30 tabs 02/06/24 Unknown Rx carvedilol 6.25 mg tablet 6.25 mg PO BID 30 days #60 tabs 02/06/24 Unknown Rx lisinopril 5 mg tablet 5 mg PO DAILY 30 days #30 tabs 02/06/24 Unknown Rx ticagrelor 90 mg tablet (Brilinta) 90 mg PO BID 30 days #60 tabs 02/06/24 Unknown Rx albuterol sulfate 90 mcg/actuation 1 - 2 puff inhalation Q4H PRN PRN 02/16/24 Unknown Rx aerosol inhaler (Ventolin HFA) Wheezing ##1 Allergy/AdvReac Type Severity Reaction Status Date / Time No Known Allergies Allergy Verified 02/15/24 19:01 Surgical History Stented coronary artery (02/05/24) Social History Smoking Status: Former smoker second hand exposure: Yes ROS <JORGE Major - Last Filed: 02/15/24 21:56> ROS ED ROS Narrative Constitutional: Negative for fever, chills, weight loss, weakness Eyes: Negative for vision loss, vision change, double vision ENT: Negative for any sore throat, ear pain, congestion Cardiovascular: Negative for any chest pain, tightness, palpitations Respiratory: Negative for any cough, sputum production, hemoptysis, dyspnea on exertion, orthopnea. Positive for dyspnea Gastrointestinal: Negative for any abdominal pain, nausea, vomiting, diarrhea, constipation, blood in stool, blood in vomit : Negative for any urinary frequency, dysuria, retention, blood in urine Muscle skeletal: Negative for any neck pain, back pain Neurological: Negative for any headache, syncope, dizziness Skin: Negative for any rashes, itching, abrasions, lacerations Psychiatric: Negative for any depression, anxiety, stress, suicidal ideation, homicidal ideation Hematologic: Negative for any excessive bruising, easy bleeding EXAM <JORGE Major - Last Filed: 02/15/24 21:56> Physical Exam Narrative Exam Narrative: Vital signs reviewed. HEET: Head normocephalic atraumatic, TMs clear bilaterally. Posterior pharynx is clear, moist mucous membranes. Nares clear bilaterally. Neck: Supple with no lymphadenopathy or tenderness. No signs of meningismus. Cardiac: Regular rate and rhythm no murmurs gallops or rubs, equal peripheral pulses bilaterally. Respiratory: Patient has expiratory wheezes to the right lower lobe. No chest tenderness. Abdomen: Soft, nontender, nondistended. No abdominal bruit or pulsatile masses. No hepatosplenomegaly Extremities: No peripheral edema, no signs of gross trauma or deformity. Active full range of motion of all extremities. Neuro: Cranial nerves II through XII intact, no focal neurological deficits. Skin: Clean dry and intact with no rash, purpura, petechiae, vesicles or pustules. Backs/flank: No CVA tenderness, no midline spinal tenderness, no deformity. Psych: Normal mood and affect. No SI, HI or acute psychosis. Const Vital Signs: 02/15/24 19:00 02/15/24 19:01 02/15/24 20:35 Temperature 97 F L 97 F L Temperature Source Temporal Temporal Pulse Rate 63 63 Respiratory Rate 22 H 22 H Respiratory Effort Short of Breath Respiratory Depth Normal Respiratory Pattern Normal Blood Pressure 135/97 H 135/97 H Blood Pressure Mean 109 109 Pulse Ox 95 95 Oxygen Delivery Method Room Air Room Air Room Air 02/15/24 21:15 02/15/24 21:16 02/15/24 22:07 Temperature Temperature Source Pulse Rate 56 L 64 Respiratory Rate 14 23 H Respiratory Effort Respiratory Depth Respiratory Pattern Blood Pressure 140/88 H Blood Pressure Mean 105 Pulse Ox 97 96 95 Oxygen Delivery Method Room Air Room Air 02/15/24 22:15 02/15/24 22:27 02/15/24 22:30 Temperature Temperature Source Pulse Rate 66 63 Respiratory Rate 16 16 Respiratory Effort Respiratory Depth Respiratory Pattern Blood Pressure 142/105 H Blood Pressure Mean 114 Pulse Ox 97 Oxygen Delivery Method 02/15/24 22:45 02/15/24 23:00 02/16/24 00:14 Temperature Temperature Source Pulse Rate 58 L 57 L 63 Respiratory Rate 14 16 18 Respiratory Effort Respiratory Depth Respiratory Pattern Blood Pressure 129/95 H Blood Pressure Mean 105 Pulse Ox 96 98 Oxygen Delivery Method Room Air Positive well nourished and well developed General Appearance ED: well developed <Dr. Jack Prather, DO - Last Filed: 02/16/24 00:47> Physical Exam Const Vital Signs: 02/15/24 19:00 02/15/24 19:01 02/15/24 20:35 Temperature 97 F L 97 F L Temperature Source Temporal Temporal Pulse Rate 63 63 Respiratory Rate 22 H 22 H Respiratory Effort Short of Breath Respiratory Depth Normal Respiratory Pattern Normal Blood Pressure 135/97 H 135/97 H Blood Pressure Mean 109 109 Pulse Ox 95 95 Oxygen Delivery Method Room Air Room Air Room Air 02/15/24 21:15 02/15/24 21:16 02/15/24 22:07 Temperature Temperature Source Pulse Rate 56 L 64 Respiratory Rate 14 23 H Respiratory Effort Respiratory Depth Respiratory Pattern Blood Pressure 140/88 H Blood Pressure Mean 105 Pulse Ox 97 96 95 Oxygen Delivery Method Room Air Room Air 02/15/24 22:15 02/15/24 22:27 02/15/24 22:30 Temperature Temperature Source Pulse Rate 66 63 Respiratory Rate 16 16 Respiratory Effort Respiratory Depth Respiratory Pattern Blood Pressure 142/105 H Blood Pressure Mean 114 Pulse Ox 97 Oxygen Delivery Method 02/15/24 22:45 02/15/24 23:00 02/16/24 00:14 Temperature Temperature Source Pulse Rate 58 L 57 L 63 Respiratory Rate 14 16 18 Respiratory Effort Respiratory Depth Respiratory Pattern Blood Pressure 129/95 H Blood Pressure Mean 105 Pulse Ox 96 98 Oxygen Delivery Method Room Air MDM <JORGE Major - Last Filed: 02/15/24 21:56> [facility] Lab Data Labs: Laboratory Results - last 24 hr 02/15/24 21:05 WBC 7.4 RBC 4.69 Hgb 14.3 Hct 43.6 MCV 93.0 MCH 30.5 MCHC 32.8 RDW Std Deviation 44.1 H RDW Coeff of Juliane 13.0 Plt Count 327 MPV 8.8 Immature Gran % (Auto) 2.300 H Neut % (Auto) 58.8 Lymph % (Auto) 25.5 Perry % (Auto) 9.0 Eos % (Auto) 3.5 Baso % (Auto) 0.9 Absolute Neuts (auto) 4.4 Absolute Lymphs (auto) 1.90 Nucleated RBC % 0 Sodium 139 Potassium 4.3 Chloride 107 Carbon Dioxide 26.0 Anion Gap 6 BUN 23 H Creatinine 1.15 Estim Creat Clear Calc 60.62 Est GFR (MDRD) Af Amer 81 Est GFR (MDRD) Non-Af 67 BUN/Creatinine Ratio 20.0 Glucose 94 Calcium 9.3 Troponin I High Sens 88 H B-Natriuretic Peptide 220.8 H Radiography Diagnostic Testing: Clinical Impression(s) from Imaging Studies Chest X-Ray 02/15/24 20:12 IMPRESSION: No acute radiographic abnormalities. Electronically Signed: Nirav Solis MD at 21:18 EDT , Chest CTA 02/15/24 20:51 IMPRESSION: No acute abnormalities in the chest. Specifically, no evidence of acute pulmonary emboli to the segmental level. Stable 1.1 cm pulmonary nodule in the right upper lobe. Recommend additional follow-up chest CT in 3 months, PET/CT and/or biopsy. Hiatal hernia. Electronically Signed: Nirav Solis MD at 23:27 EDT , EKG Sinus bradycardia: Attestation: I personally reviewed and interpreted this EKG as follows: Comments: Sinus bradycardia, rate 57 bpm, DC 140 ms, QRS duration 78 ms, no acute ST elevation, no acute infarct noted. Treatment and Re-Evaluation :: Differential diagnosis includes however is not limited to: Community-acquired pneumonia, fluid overload, anxiety, COPD Patient appears to be in no obvious respiratory distress patient is speaking complete sentences. Patient appears nontoxic. Patient presenting to the emergency department with complaints of intermittent shortness of breath since he has been out of the hospital. Patient dates is also happened a couple days in the hospital. Patient denies any fever or chills, denies any nausea or vomiting. Patient received a two-view chest x-ray, all radiologic examinations were read, reviewed by the emergency department attending. From these reads, a plan of care will be put in place. EKG was unremarkable, showing sinus bradycardia Patient's laboratory values show a normal CBC, patient's chemistries shows BUN of 23, creatinine was within normal limits at 1.15. Patient's initial troponin was 88, this has decreased from February 04, 2024 when he was 256. Patient's BNP was 220. Patient will receive a CTA of the chest to ensure there is no pulmonary embolus. <Dr. Jack Prtaher, DO - Last Filed: 02/16/24 00:47> [facility] Narrative Medical decision making narrative: I have personally performed a face to face assessment of the patient and have reviewed the TIMUR Note. I performed a substantive portion of the visit including all aspects of the following. My berry findings include: History: Patient presents with shortness of breath that has been getting worse over the past 9 to 10 days. Patient states it is gradually getting worse. Patient states it comes and goes. Patient states nothing makes it worse. Patient states it is better with rest. Patient denies any cough. Patient denies any fevers or chills. Patient denies any chest pain. Patient was recently admitted to the hospital for a STEMI. Patient denies any nausea or vomiting. Patient denies any diaphoresis. Exam: Vital signs are stable. Patient is afebrile. Patient is in no acute distress. Oral mucosa is pink and moist. Neck is supple. Trachea is midline. There is no JVD. Heart was regular rate and rhythm. Lungs are clear and equal bilaterally. There is good respiratory effort noted. Abdomen is soft. Bowel sounds are normal. There is no tenderness. Cranial nerves II through XII are intact. There are no focal motor or sensory deficits noted. Medical Decision Making: Differential diagnosis includes cardiac dysrhythmia, cardiac ischemia, pneumonia, pulmonary embolism, congestive heart failure, and anxiety. EKG will be obtained to assess for cardiac dysrhythmia and cardiac ischemia. Chest x-ray will be obtained to assess for pneumonia and congestive heart failure. CTA of the chest will be obtained to assess for pulmonary embolism and pneumonia. CBC will be obtained to assess for leukocytosis and anemia. Basic metabolic profile will be obtained to assess for electrolyte abnormality renal function. BNP will be obtained to assess for congestive heart failure. High-sensitivity troponin will be obtained to assess for cardiac ischemia. EKG was obtained. On my independent interpretation, it shows sinus bradycardia with a rate of 57. DC interval was normal at 140 ms. QRS and was normal at 78 ms. QTc interval was normal at 397 ms. [place] was normal. There are nonspecific ST-T wave changes in the inferior leads. This is unchanged compared to previous EKG dated 02/05/2024. PA and lateral chest x-ray was obtained. There are 2 views. On my independent interpretation, lung [place] are clear. There is normal cardiac silhouette. Bony thorax is normal. There is no acute process noted. Radiologist also interpreted the x-ray and agrees. CBC was reviewed and was within normal limits. Basic metabolic profile was reviewed and was essentially within normal limits. High-sensitivity troponin was reviewed and was slightly elevated at 88. This is improved compared to previous results. BNP was reviewed and was 220.8. CTA of the chest was obtained. There are no acute abnormalities noted. There is no evidence of pulmonary embolism. This was interpreted by the radiologist was also independently reviewed by myself. Patient was given a DuoNeb aerosol here. Patient was given a prescription for albuterol inhaler. Patient was instructed to follow-up with his primary care physician in 5 to 7 days. Patient understood and was agreeable with the plan. All questions were answered. Lab Data Labs: Laboratory Results - last 24 hr 02/15/24 21:05 WBC 7.4 RBC 4.69 Hgb 14.3 Hct 43.6 MCV 93.0 MCH 30.5 MCHC 32.8 RDW Std Deviation 44.1 H RDW Coeff of Juliane 13.0 Plt Count 327 MPV 8.8 Immature Gran % (Auto) 2.300 H Neut % (Auto) 58.8 Lymph % (Auto) 25.5 Perry % (Auto) 9.0 Eos % (Auto) 3.5 Baso % (Auto) 0.9 Absolute Neuts (auto) 4.4 Absolute Lymphs (auto) 1.90 Nucleated RBC % 0 Sodium 139 Potassium 4.3 Chloride 107 Carbon Dioxide 26.0 Anion Gap 6 BUN 23 H Creatinine 1.15 Estim Creat Clear Calc 60.62 Est GFR (MDRD) Af Amer 81 Est GFR (MDRD) Non-Af 67 BUN/Creatinine Ratio 20.0 Glucose 94 Calcium 9.3 Troponin I High Sens 88 H B-Natriuretic Peptide 220.8 H Radiography Diagnostic Testing: Clinical Impression(s) from Imaging Studies Chest X-Ray 02/15/24 20:12 IMPRESSION: No acute radiographic abnormalities. Electronically Signed: Nirav Solis MD at 21:18 EDT , Chest CTA 02/15/24 20:51 IMPRESSION: No acute abnormalities in the chest. Specifically, no evidence of acute pulmonary emboli to the segmental level. Stable 1.1 cm pulmonary nodule in the right upper lobe. Recommend additional follow-up chest CT in 3 months, PET/CT and/or biopsy. Hiatal hernia. Electronically Signed: Nirav Solis MD at 23:27 EDT , Discharge Plan Triage Chief Complaint: Shortness of Breath ED Midlevel Provider: Scott Norman ED Provider: Jack Prather Dx/Rx/DC Orders Clinical Impression: Dyspnea, COPD (chronic obstructive pulmonary disease) Instructions: ED Dyspnea Prescriptions: New albuterol sulfate [Ventolin HFA] 90 mcg/actuation HFA aerosol inhaler 1 - 2 puff inhalation Q4H PRN PRN (Reason: Wheezing) Qty: 1 0RF No Action pantoprazole 40 mg tablet,delayed release (DR/EC) 40 mg PO DAILY Patient Comments: ONE TABLET TABLET BY MOUTH DAILY gabapentin 300 mg capsule 300 mg PO QHS atorvastatin 80 mg Tablet 80 mg PO QHS 30 Days Qty: 30 4RF carvedilol 6.25 mg Tablet 6.25 mg PO BID 30 Days Qty: 60 4RF Rx Instructions: Hold for heart less than 50 or systolic blood pressure less than 100 mmHg. lisinopril 5 mg Tablet 5 mg PO DAILY 30 Days Qty: 30 2RF Brilinta 90 mg Tablet 90 mg PO BID 30 Days Qty: 60 4RF aspirin 81 mg tablet,delayed release (DR/EC) 81 mg PO DAILY 30 Days Qty: 30 4RF Primary Care Provider: Scott Mejia Referrals: Scott Mejia MD [Primary Care Provider] - 5-7 Days Print Language: Beninese Disposition Disposition: Home, Self Care
--- NOTE | 2024-02-15 20:12 | RAD_ITS ---
INDICATION: cough EXAMINATION/TECHNIQUE: X-RAY - XR Chest 2 Views COMPARISON: 02/04/2024. FINDINGS: The lungs are clear. Tortuous and calcified thoracic aorta. The heart is not enlarged. No pleural effusion or pneumothorax. Degenerative changes of the thoracic spine. RAD/Chest PA and Lateral IMPRESSION: No acute radiographic abnormalities. Electronically Signed: Nirav Solis MD at 21:18 EDT ,
--- NOTE | 2024-02-15 20:51 | CT_ITS ---
INDICATION: shortness of breath EXAMINATION: CTA Chest WO/W Contrast Injection TECHNIQUE: Helically acquired images were obtained of the chest following administration of IV contrast. A radiation dose optimization technique was used for this scan. 3D postprocessing images including MIPS were reviewed. IV Contrast dosage and agent: IV 100mL [id number] COMPARISON: 12/26/2023. FINDINGS: Lungs: Severe emphysematous changes. Left apical pleural parenchymal scarring. Stable 1.1 cm slightly irregular nodule in the posterior aspect of the right upper lobe. Mediastinum: The heart is border line enlarged. No mediastinal, hilar or axillary adenopathy. Moderate aortic arch and coronary artery calcifications. No obvious filling defect seen within the visualized pulmonary arteries. Pleura: Unremarkable Bones/Soft tissues: There are diffuse degenerative changes of the spine. Upper abdomen: Hiatal hernia. CT/CTA Chest W/WO Contrast IMPRESSION: No acute abnormalities in the chest. Specifically, no evidence of acute pulmonary emboli to the segmental level. Stable 1.1 cm pulmonary nodule in the right upper lobe. Recommend additional follow-up chest CT in 3 months, PET/CT and/or biopsy. Hiatal hernia. Electronically Signed: Nirav Solis MD at 23:27 EDT ,
[2024-02-15 21:15] LABS: Absolute Neutrophil Count 4.4 X10^3/uL (2.0-7.7); Basophil# 0.07 X10^3/uL; Basophil% 0.9 % (0-1); Eosinophil# 0.26 X10^3/uL; Eosinophils% 3.5 % (0-5); Hematocrit 43.6 % (40-54); Hemoglobin 14.3 g/dL (13.0-16.5); Lymphocyte % 25.5 % (19-41); Mean Corp Hgb Conc 32.8 g/dL (32-36); Mean Corpuscular Hgb 30.5 pg (27.0-32.0); Mean Platelet Vol. 8.8 fl (6.2-12.0); Monocyte# 0.67 X10^3/uL; NRBC Flagged by Analyzer 0 % (0-5); Neutrophil # 4.37 X10^3/uL (2.7-7.7); Neutrophil % 58.8 % (47-70); Platelet Count 327 K/mm3 (150-450); RBC Distribution Width SD 44.1 fl (35.1-43.9); Red Blood Count 4.69 M/mm3 (4.6-6.2); White Blood Count 7.4 K/mm3 (4.4-11.0)
[2024-02-15 21:34] LABS: Anion Gap 6 (5-15); BUN 23 mg/dL (7-18); Calcium,Total 9.3 mg/dL (8.5-10.1); Chloride 107 mmol/L (98-107); Creatinine, Serum 1.15 mg/dL (0.70-1.30); EST Glomerular Filtration Rate 67 mL/min (>60); Est Glom Filt Rate - Afr Amer 81 mL/min (>60); Estimated Creatinine Clearance 60.62 ml/min; Glucose 94 mg/dL (74-106); Potassium 4.3 mmol/L (3.5-5.1); Sodium Level 139 mmol/L (136-145); Troponin-I HS 88 pg/mL (3.0-78.0)
[2024-02-15 21:38] LABS: BNP,B-Type NATRIURETIC PEPTIDE 220.8 pg/mL (0-100)
--- NOTE | 2024-02-15 23:16 | EKG12_ITS ---
Test Reason : SOB Blood Pressure : / mmHG Vent. Rate : 057 BPM Atrial Rate : 057 BPM P-R Int : 140 ms QRS Dur : 078 ms QT Int : 408 ms P-R-T Axes : 036 -10 -33 degrees QTc Int : 397 ms Sinus bradycardia T wave abnormality, consider inferior ischemia Abnormal ECG Confirmed by Kelvin Ruiz ([id number]), map editor JESSICA FERNANDO ([id number]) on 02/18/2024 8:13:41 AM Referred By: Confirmed By:Kelvin Ruiz
[2024-02-16] MEDS: Ipratropium/Albuterol Sulfate 3 ML AMPUL.NEB INHALATION (00:12)
[2024-02-16 00:14] VITALS: PULSE 63; RESP 18
[2024-02-16 00:52] VITALS: BP 141/93; PULSE 62; RESP 18; TEMP 36.6; O2SAT 100
== END 2024-02-16 00:55 | disposition home or self-care (01) ==
PROVIDERS: Nurse Practitioner; Emergency Provider Emergency Medicine; PCP Family Medicine; Visit Provider Emergency Medicine
DX: J44.9 Chronic obstructive pulmonary disease, unspecified (principal); R06.00 Dyspnea, unspecified; I25.2 Old myocardial infarction; Z87.891 Personal history of nicotine dependence; Z79.899 Other long term (current) drug therapy; Z79.82 Long term (current) use of aspirin; Z95.5 Presence of coronary angioplasty implant and graft
CPT/HCPCS: 71046; 71275; 80048; 83880; 84484; 85025; 93005; 94640; 99284; Q9967; A4216

== ENCOUNTER 2024-03-21 11:59 | Emergency (ER) | payer MEDICARE, SELFPAY ==
[2024-02-12 08:42] VITALS: BMI 25.8
[2024-03-21] VITALS (7 sets, daily range): BP systolic 124–163; BP diastolic 84–99; PULSE 56–65; RESP 12–18; TEMP 35.8–36.1; O2SAT 93–98; BMI 24.6
--- NOTE | 2024-03-21 12:54 | EKG12_ITS ---
Test Reason : CP/SOB Blood Pressure : / mmHG Vent. Rate : 060 BPM Atrial Rate : 060 BPM P-R Int : 146 ms QRS Dur : 078 ms QT Int : 404 ms P-R-T Axes : 084 036 -04 degrees QTc Int : 404 ms Normal sinus rhythm NSTW CHANGES INFERIOR BORDERLINE Confirmed by Kelvin Ruiz ([id number]), news assignment editor JESSICA FERNANDO ([id number]) on 03/24/2024 8:14:55 AM Referred By: MARGA/KAREN Confirmed By:Kelvin Ruiz
--- NOTE | 2024-03-21 13:01 | EX.ED.DYSGE1 ---
HPI <JORGE Major - Last Filed: 03/21/24 16:43> History of Present Illness Chief Complaint: Shortness of Breath Narrative Narrative: Patient is a 68-year-old male with history of CVA, CAD, VA, COPD presents to the emergency department for ongoing shortness of breath. Per the patient, the patient has been shortness of breath since January since his VA. Patient has been seen 3 times in the emergency department secondary to this shortness of breath. They have been unable to find anything. Patient states today, he did have some pressure in his left lower chest, he also felt some epigastric pain with some GERD like symptoms. Patient is concerned and is here for evaluation. He does have a pulmonology appointment on March 25, 2024. [facility] <JORGE Major - Last Filed: 03/21/24 16:43> [facility] Medical History (Updated 03/21/24 @ 16:43 by JORGE Major) Dyslipidemia ST elevation (STEMI) myocardial infarction involving right coronary artery (~02/04/24) GERD (gastroesophageal reflux disease) COPD (chronic obstructive pulmonary disease) Nicotine dependence, cigarettes, uncomplicated Lung nodule Home Medications ?Medication ?Instructions ?Recorded ?Last Taken ?Type pantoprazole 40 mg tablet,delayed 40 mg PO DAILY GERD 09/26/23 10/12/23 History release gabapentin 300 mg capsule 300 mg PO QHS nerve pain 10/11/23 10/11/23 History aspirin 81 mg tablet,delayed 81 mg PO DAILY heart health 30 02/06/24 Unknown Rx release days #30 tabs atorvastatin 80 mg tablet 80 mg PO QHS 30 days #30 tabs 02/06/24 Unknown Rx lisinopril 5 mg tablet 5 mg PO DAILY 30 days #30 tabs 02/06/24 Unknown Rx albuterol sulfate 90 mcg/actuation 1 - 2 puff inhalation Q4H PRN PRN 02/16/24 Unknown Rx aerosol inhaler (Ventolin HFA) Wheezing ##1 carvedilol 6.25 mg tablet 6.25 mg PO BID 90 days #180 tabs 02/26/24 Unknown Rx ticagrelor 90 mg tablet 90 mg PO BID #180 tabs 02/26/24 Unknown Rx buspirone 7.5 mg tablet 7.5 mg PO BID 03/21/24 Unknown History Allergy/AdvReac Type Severity Reaction Status Date / Time No Known Allergies Allergy Verified 03/21/24 12:00 Surgical History Stented coronary artery (02/05/24) Social History Smoking Status: Former smoker second hand exposure: Yes ROS <JORGE Major - Last Filed: 03/21/24 16:43> ROS ED ROS Narrative Constitutional: Negative for fever, chills, weight loss, weakness Eyes: Negative for vision loss, vision change, double vision ENT: Negative for any sore throat, ear pain, congestion Cardiovascular: Negative for any chest pain, tightness, palpitations. Positive for chest pressure Respiratory: Negative for any cough, sputum production, hemoptysis, dyspnea, dyspnea on exertion, orthopnea Gastrointestinal: Negative for any abdominal pain, nausea, vomiting, diarrhea, constipation, blood in stool, blood in vomit. Positive for GERD : Negative for any urinary frequency, dysuria, retention, blood in urine Muscle skeletal: Negative for any neck pain, back pain Neurological: Negative for any headache, syncope, dizziness Skin: Negative for any rashes, itching, abrasions, lacerations Psychiatric: Negative for any depression, anxiety, stress, suicidal ideation, homicidal ideation Hematologic: Negative for any excessive bruising, easy bleeding EXAM <JORGE Major - Last Filed: 03/21/24 16:43> Physical Exam Narrative Exam Narrative: Vital signs reviewed. HEET: Head normocephalic atraumatic, TMs clear bilaterally. Posterior pharynx is clear, moist mucous membranes. Nares clear bilaterally. Neck: Supple with no lymphadenopathy or tenderness. No signs of meningismus. Cardiac: Regular rate and rhythm no murmurs gallops or rubs, equal peripheral pulses bilaterally. Respiratory: Lungs clear to auscultation bilaterally. No chest tenderness. Abdomen: Soft, nontender, nondistended. No abdominal bruit or pulsatile masses. No hepatosplenomegaly Extremities: No peripheral edema, no signs of gross trauma or deformity. Active full range of motion of all extremities. Neuro: Cranial nerves II through XII intact, no focal neurological deficits. Skin: Clean dry and intact with no rash, purpura, petechiae, vesicles or pustules. Backs/flank: No CVA tenderness, no midline spinal tenderness, no deformity. Psych: Normal mood and affect. No SI, HI or acute psychosis. Const Vital Signs: 03/21/24 12:00 03/21/24 12:21 03/21/24 13:08 Temperature 96.5 F L Temperature Source Temporal Pulse Rate 59 L Respiratory Rate 18 Respiratory Effort Normal Non-Labored Respiratory Depth Normal Respiratory Pattern Normal Blood Pressure 138/87 H Blood Pressure Mean 104 Pulse Ox 95 95 Oxygen Delivery Method Room Air Room Air 03/21/24 13:08 03/21/24 14:04 03/21/24 15:05 Temperature Temperature Source Pulse Rate 56 L 60 65 Respiratory Rate 12 13 16 Respiratory Effort Respiratory Depth Respiratory Pattern Blood Pressure 162/93 H 130/84 H 124/98 H Blood Pressure Mean 116 99 106 Pulse Ox 95 98 93 Oxygen Delivery Method Room Air Room Air Room Air 03/21/24 15:56 Temperature Temperature Source Pulse Rate 61 Respiratory Rate 12 Respiratory Effort Respiratory Depth Respiratory Pattern Blood Pressure 145/90 H Blood Pressure Mean 108 Pulse Ox 96 Oxygen Delivery Method Room Air <Dr. Evita Barney DO - Last Filed: 03/24/24 07:47> Physical Exam Const Vital Signs: 03/21/24 12:00 03/21/24 12:21 03/21/24 13:08 Temperature 96.5 F L Temperature Source Temporal Pulse Rate 59 L Respiratory Rate 18 Respiratory Effort Normal Non-Labored Respiratory Depth Normal Respiratory Pattern Normal Blood Pressure 138/87 H Blood Pressure Mean 104 Pulse Ox 95 95 Oxygen Delivery Method Room Air Room Air 03/21/24 13:08 03/21/24 14:04 03/21/24 15:05 Temperature Temperature Source Pulse Rate 56 L 60 65 Respiratory Rate 12 13 16 Respiratory Effort Respiratory Depth Respiratory Pattern Blood Pressure 162/93 H 130/84 H 124/98 H Blood Pressure Mean 116 99 106 Pulse Ox 95 98 93 Oxygen Delivery Method Room Air Room Air Room Air 03/21/24 15:56 Temperature Temperature Source Pulse Rate 61 Respiratory Rate 12 Respiratory Effort Respiratory Depth Respiratory Pattern Blood Pressure 145/90 H Blood Pressure Mean 108 Pulse Ox 96 Oxygen Delivery Method Room Air MDM <JORGE Major - Last Filed: 03/21/24 16:43> [facility] Lab Data Labs: Laboratory Results - last 24 hr 03/21/24 03/21/24 13:15 15:40 WBC 6.7 RBC 4.73 Hgb 14.6 Hct 43.5 MCV 92.0 MCH 30.9 MCHC 33.6 RDW Std Deviation 44.0 H RDW Coeff of Juliane 13.2 Plt Count 289 MPV 9.0 Immature Gran % (Auto) 1.200 H Neut % (Auto) 68.4 Lymph % (Auto) 18.3 L [place] % (Auto) 8.7 Eos % (Auto) 2.5 Baso % (Auto) 0.9 Absolute Neuts (auto) 4.6 Absolute Lymphs (auto) 1.22 Nucleated RBC % 0 PT 13.2 INR 1.0 Sodium 138 Potassium 4.2 Chloride 106 Carbon Dioxide 27.0 Anion Gap 5 BUN 17 Creatinine 1.25 Estim Creat Clear Calc 55.77 Est GFR (MDRD) Af Amer 74 Est GFR (MDRD) Non-Af 61 BUN/Creatinine Ratio 13.6 Glucose 103 Calcium 9.4 Total Bilirubin 1.00 Direct Bilirubin 0.20 AST 19 ALT 30 Alkaline Phosphatase 33 L Troponin I High Sens 18 20 B-Natriuretic Peptide 138.3 H Total Protein 7.5 Albumin 3.6 Globulin 3.9 Lipase 40 Radiography Diagnostic Testing: Clinical Impression(s) from Imaging Studies Chest X-Ray 03/21/24 13:30 IMPRESSION: No acute cardiopulmonary process identified. Electronically Signed: Dottie Melendez MD at 13:42 EDT Reading Location ID and State: [address] [place] [address] Tel , Service support , EKG Normal sinus rhythm: Attestation: I personally reviewed and interpreted this EKG as follows: Comments: Normal sinus rhythm, rate of 60 bpm, MT interval 146 ms, QRS duration 78 ms, no acute ST elevation, no acute infarct noted. Treatment and Re-Evaluation :: Differential diagnosis includes however is not limited to: ACS, VA, COPD exacerbation, GERD Patient is in no obvious distress, patient's vital signs are stable. Patient appears nontoxic. Presenting to the emergency department with ongoing shortness of breath, slight chest pressure. Patient received a cardiopulmonary workup including 2 troponins. Patient also received upper abdominal labs which is liver panel, lipase secondary to pain to left upper abdomen. Patient will receive a 2 view chest x-ray. All radiologic examinations were read, reviewed by the emergency department attending. From these reads, a plan of care will be put in place. Patient's CBC was unremarkable, patient's chemistries were unremarkable, BNP was only 138, this is decreased since 1 month ago. Patient initial troponin was 18, the second troponin was 20. This is negative. Chest x-ray two-view inter by ER physician was negative for any acute cardiopulmonary process. Patient's EKG was unremarkable. At this time, there is no evidence of any ACS, VA, cardiopulmonary pathology. I do believe the patient is frustrated secondary to these symptoms continuing to happen. Patient will be will be discharged home, patient was able to ambulate around department, patient did not drop below 91%, and once resting, he felt much better. Patient does see pulmonology on March 25. I was able to reach out to their office and speak with them regarding the patient and his recent visits. At this time, patient will continue the follow-up next week. Was given strict return precautions. All questions were answered, patient stable for discharge. <Dr. Evita Barney, DO - Last Filed: 03/24/24 07:47> [facility] Lab Data Labs: Laboratory Results - last 24 hr 03/21/24 03/21/24 13:15 15:40 WBC 6.7 RBC 4.73 Hgb 14.6 Hct 43.5 MCV 92.0 MCH 30.9 MCHC 33.6 RDW Std Deviation 44.0 H RDW Coeff of Juliane 13.2 Plt Count 289 MPV 9.0 Immature Gran % (Auto) 1.200 H Neut % (Auto) 68.4 Lymph % (Auto) 18.3 L [place] % (Auto) 8.7 Eos % (Auto) 2.5 Baso % (Auto) 0.9 Absolute Neuts (auto) 4.6 Absolute Lymphs (auto) 1.22 Nucleated RBC % 0 PT 13.2 INR 1.0 Sodium 138 Potassium 4.2 Chloride 106 Carbon Dioxide 27.0 Anion Gap 5 BUN 17 Creatinine 1.25 Estim Creat Clear Calc 55.77 Est GFR (MDRD) Af Amer 74 Est GFR (MDRD) Non-Af 61 BUN/Creatinine Ratio 13.6 Glucose 103 Calcium 9.4 Total Bilirubin 1.00 Direct Bilirubin 0.20 AST 19 ALT 30 Alkaline Phosphatase 33 L Troponin I High Sens 18 20 B-Natriuretic Peptide 138.3 H Total Protein 7.5 Albumin 3.6 Globulin 3.9 Lipase 40 Radiography Diagnostic Testing: Clinical Impression(s) from Imaging Studies Chest X-Ray 03/21/24 13:30 IMPRESSION: No acute cardiopulmonary process identified. Electronically Signed: Dottie Melendez MD at 13:42 EDT , Treatment and Re-Evaluation :: Differential diagnosis includes however is not limited to: ACS, VA, COPD exacerbation, GERD Patient is in no obvious distress, patient's vital signs are stable. Patient appears nontoxic. Presenting to the emergency department with ongoing shortness of breath, slight chest pressure. Patient received a cardiopulmonary workup including 2 troponins. Patient also received upper abdominal labs which is liver panel, lipase secondary to pain to left upper abdomen. Patient will receive a 2 view chest x-ray. All radiologic examinations were read, reviewed by the emergency department attending. From these reads, a plan of care will be put in place. Patient's CBC was unremarkable, patient's chemistries were unremarkable, BNP was only 138, this is decreased since 1 month ago. Patient initial troponin was 18, the second troponin was 20. This is negative. Chest x-ray two-view inter by ER physician was negative for any acute cardiopulmonary process. Patient's EKG was unremarkable. At this time, there is no evidence of any ACS, VA, cardiopulmonary pathology. I do believe the patient is frustrated secondary to these symptoms continuing to happen. Patient will be will be discharged home, patient was able to ambulate around department, patient did not drop below 91%, and once resting, he felt much better. Patient does see pulmonology on March 25. I was able to reach out to their office and speak with them regarding the patient and his recent visits. At this time, patient will continue the follow-up next week. Was given strict return precautions. All questions were answered, patient stable for discharge. I have personally performed a face to face assessment of the patient and have reviewed the TIMUR Note. I performed a substantive portion of the visit including all aspects of the following. My berry findings include: History is patient is 68-year-old male with history of coronary artery disease status post stents on 02/05/2024 presenting with ongoing shortness of breath. Patient has been dealing with shortness of breath and feeling like he is not getting enough oxygen since his procedure. He developed pressure in his left lower chest/left upper quadrant today which is what triggered him to come in for an evaluation. Chart review shows the patient was seen on 02/15/2024 for shortness of breath. At that time he had a CTA which was negative for PE. I do not suspect ACS or cardiogenic cause of his shortness of breath. Given that the shortness of breath is ongoing any previous and negative CT PE I do not think it requires a repeat. Workup largely negative. Patient does express a lot of frustration about how long it is taking to figure out what is going on with his shortness of breath. Counseled that he does need to continue following up outpatient in the ER is for ruling out emergent conditions but not as useful for diagnosing things like restrictive lung disease. Does have a history of tobacco use and I wonder if some of his shortness of breath is more COPD related. There is practitioner did reach out to pulmonology As he has follow-up next week with them. Patient is ambulated with no acute hypoxia. Given return precautions be discharged home Other additions or changes: [None] Discharge Plan Triage Chief Complaint: Shortness of Breath ED Midlevel Provider: Scott Norman ED Provider: Evita Barney Dx/Rx/DC Orders Clinical Impression: Chronic dyspnea, History of VA (myocardial infarction) Instructions: Shortness of Breath Maximizing ..., Shortness of Breath Coping, ED Dyspnea Prescriptions: No Action pantoprazole 40 mg tablet,delayed release (DR/EC) 40 mg PO DAILY Patient Comments: ONE TABLET TABLET BY MOUTH DAILY carvedilol 6.25 mg tablet 6.25 mg PO BID 90 Days Qty: 180 3RF Rx Instructions: Hold for heart less than 50 or systolic blood pressure less than 100 mmHg. ticagrelor 90 mg tablet 90 mg PO BID Qty: 180 3RF gabapentin 300 mg capsule 300 mg PO QHS atorvastatin 80 mg Tablet 80 mg PO QHS 30 Days Qty: 30 4RF lisinopril 5 mg Tablet 5 mg PO DAILY 30 Days Qty: 30 2RF aspirin 81 mg tablet,delayed release (DR/EC) 81 mg PO DAILY 30 Days Qty: 30 4RF albuterol sulfate [Ventolin HFA] 90 mcg/actuation HFA aerosol inhaler 1 - 2 puff inhalation Q4H PRN PRN (Reason: Wheezing) Qty: 1 0RF buspirone 7.5 mg tablet 7.5 mg PO BID Primary Care Provider: Scott Mejia Referrals: Scott Mejia MD [Primary Care Provider] - Activity Restrictions/Additional Instructions: Please follow-up as scheduled. I did reach out to them, I did let them know that we did multiple scans, chest x-rays, and that you are still having similar symptoms. Print Language: Greenlandic Disposition Disposition: Home, Self Care Discharge Date/Time: 03/21/24 17:03
[2024-03-21] MEDS: Lidocaine 2% Viscous15 ML UDC 15 ML PO (13:09)
[2024-03-21] MEDS: Mag Hydrox/Al Hydrox/Simeth 30 ML UDC PO (13:09)
[2024-03-21 13:20] LABS: Absolute Lymphocyte Count 1.22 X10^3/uL (0.83-4.51); Absolute Neutrophil Count 4.6 X10^3/uL (2.0-7.7); Basophil# 0.06 X10^3/uL; Basophil% 0.9 % (0-1); Eosinophil# 0.17 X10^3/uL; Eosinophils% 2.5 % (0-5); Hematocrit 43.5 % (40-54); Hemoglobin 14.6 g/dL (13.0-16.5); Lymphocyte # 1.22 X10^3/ul (0.83-4.51); Lymphocyte % 18.3 % (19-41); Mean Corp Hgb Conc 33.6 g/dL (32-36); Mean Corpuscular Hgb 30.9 pg (27.0-32.0); Monocyte# 0.58 X10^3/uL; Monocyte% 8.7 % (0-10); NRBC Flagged by Analyzer 0 % (0-5); Neutrophil # 4.56 X10^3/uL (2.7-7.7); Neutrophil % 68.4 % (47-70); Platelet Count 289 K/mm3 (150-450); RBC Distribution Width CV 13.2 % (11.6-14.6); Red Blood Count 4.73 M/mm3 (4.6-6.2); White Blood Count 6.7 K/mm3 (4.4-11.0)
--- NOTE | 2024-03-21 13:30 | RAD_ITS ---
HISTORY: chest pain. TECHNIQUE: XR Chest 2 Views. COMPARISON: 02/15/2024. FINDINGS: CARDIOMEDIASTINAL BORDERS: Cardiac silhouette within normal limits in size with coronary artery disease noted. Mediastinal contour unremarkable. LUNGS: Radiographically clear. Chronic hyperinflation. PLEURA: No pleural effusion or pneumothorax seen. OSSEOUS STRUCTURES: Degenerative change. RAD/Chest PA and Lateral IMPRESSION: No acute cardiopulmonary process identified. Electronically Signed: Dottie Melendez MD at 13:42 EDT ,
[2024-03-21 13:38] LABS: Prothrombin Time (Protime)PT. 13.2 SECONDS (11.7-14.9)
[2024-03-21 14:06] LABS: BNP,B-Type NATRIURETIC PEPTIDE 138.3 pg/mL (0-100)
[2024-03-21 14:07] LABS: AST(SGOT) 19 U/L (15-37); Alanine Aminotransfer ALT/SGPT 30 U/L (16-61); Albumin, Serum 3.6 g/dL (3.2-5.0); Alkaline Phosphatase 33 U/L (45-117); Anion Gap 5 (5-15); BUN 17 mg/dL (7-18); BUN/Creat Ratio 13.6 RATIO (10-20); Calcium,Total 9.4 mg/dL (8.5-10.1); Chloride 106 mmol/L (98-107); Creatinine, Serum 1.25 mg/dL (0.70-1.30); EST Glomerular Filtration Rate 61 mL/min (>60); Est Glom Filt Rate - Afr Amer 74 mL/min (>60); Estimated Creatinine Clearance 55.77 ml/min; Globulin 3.9 g/dL (2.2-4.2); Glucose 103 mg/dL (74-106); Lipase 40 U/L (13-75); Potassium 4.2 mmol/L (3.5-5.1); Protein, Total 7.5 g/dL (6.4-8.2); Sodium Level 138 mmol/L (136-145); Troponin-I HS (w/2H Reflex) 18 pg/mL (3.0-78.0)
[2024-03-21 15:17] LABS: Reflex Troponin-HS? (from REC) Y
[2024-03-21 16:18] LABS: Troponin-I HS 20 pg/mL (3.0-78.0)
== END 2024-03-21 17:03 | disposition home or self-care (01) ==
PROVIDERS: Nurse Practitioner; Emergency Provider Emergency Medicine; PCP Family Medicine; Visit Provider Emergency Medicine
DX: R06.00 Dyspnea, unspecified (principal); J44.9 Chronic obstructive pulmonary disease, unspecified; I25.10 Atherosclerotic heart disease of native coronary artery without angina pectoris; E78.5 Hyperlipidemia, unspecified; I25.2 Old myocardial infarction; Z79.51 Long term (current) use of inhaled steroids; Z79.82 Long term (current) use of aspirin; Z79.899 Other long term (current) drug therapy; Z86.73 Personal history of transient ischemic attack (TIA), and cerebral infarction without residual deficits; Z87.891 Personal history of nicotine dependence; Z95.5 Presence of coronary angioplasty implant and graft
CPT/HCPCS: 71046; 80048; 80076; 83690; 83880; 84484; 85025; 85610; 93005; 99284; A4216

== ENCOUNTER → 2024-04-08 | Outpatient (CLI) | payer MEDICARE, SELFPAY ==
[2024-02-12 08:42] VITALS: BMI 25.8
--- NOTE | 2024-04-08 09:30 | PET_ITS ---
EXAMINATION: FDG PET-CT INDICATIONS: A 68-year-old male with a history of pulmonary nodularity. COMPARISON EXAMINATION: Previous FDG PET CT study dated 09/18/23. INDEX LESION SIZE SUV INTERPRETATION PREVIOUS: Right upper lung field, right upper lobe Demonstrates metabolic resolution on the current examination. PERSISTENT: Right posterior ilium 1.4 comp to 3.2 Quantitative criteria for viable neoplasm are not fulfilled. TECHNIQUE: Following the intravenous administration of 13.46 mCi of F-18 deoxyglucose via the left antecubital fossa, multiplanar image acquisitions of the head, neck, chest, abdomen and pelvis to level of mid-thigh, lower extremities obtained at one hour post radiopharmaceutical administration contemporaneously interpreted with the current CT of the head, neck, chest, abdomen and pelvis to level of mid-thigh, lower extremities dated 04/08/24 via coregistration and previous FDG PET CT study dated 09/18/23 reveal: SERUM GLUCOSE LEVEL: 74 mg/dl. HEIGHT: 69 inches. WEIGHT: 160 lbs. FINDINGS: Head/Neck: There is no evidence of abnormal increased glucose metabolism in the pharyngeal mucosal space, parapharyngeal space, bilateral-lateral and anterior neck, hypopharynx and distribution of the laryngeal structures. The visualized portion of the cerebral cortical-subcortical structures demonstrate symmetric and preserved glucose metabolism. CHEST: There is no quantitative scintigraphic evidence of abnormal increased glucose metabolism within the context of the bilateral hemithorax pulmonary parenchyma, right and left hemithoracic pleural interface, mediastinal structures and thoracic perihilum.? Prominent radiopharmaceutical concentration is identified in the left ventricular myocardium commensurate with the [place]. Otherwise, the previously defined morphologic-anatomic changes described on the prior FDG PET-CT report dated 09/18/23, are essentially unchanged on the current examination. The prior defined right lung hypermetabolic focus is not apparent on the current examination. Abdomen/Pelvis: Normal physiologic distribution of the radiopharmaceutical is apparent in the hepatic (3.0) and splenic parenchyma, both renal units, bladder and visualized intestinal tract. Diffuse radiopharmaceutical concentration is noted in all four quadrants of the abdomen and pelvis. Otherwise, the previously defined morphologic-anatomic changes described on the prior FDG PET-CT report dated 09/18/23, are essentially unchanged on the current examination. Skeletal: Redefined increased FDG uptake is noted in the right posterior ilium generating a current calculated maximum standard uptake value of 1.4 compared to 3.2. PET/PET/CT Tumor Base -Thigh Init IMPRESSION: 1. NEGATIVE EXAMINATION. There is no definitive quantitative scintigraphic evidence of recurrent-metastatic viable neoplasm. 2. Increased FDG concentration redefined in the right posterior ilium does not fulfill quantitative criteria for viable neoplasm. 3. There is interim resolution of the prior defined right lung field hypermetabolic focus. 4. Overall, compared to the prior FDG PET CT study dated 04/08/24, there is current absence of defined viable neoplastic disease. Electronic Signature Zafar Mcpherson D.O. Accurate Quantification of SUVs for this report are calculated using the exclusive [employer]. (U.S. Patent No. [phone] [id number] [phone] B2 [phone] [place] patent [id number] [phone]). Standardization and correction of the FDG SUV metric via [employer] technology allow for vendor non-specific objective quantitative examination comparison and optimization of the sensitivity and specificity of the FDG PET-CT examination. . https://www.mdpi.com/[email or web address]/06/06/1580 [email or web address] Electronically Signed: Zafar Mcpherson DO at 8:34 EDT ,
== END | disposition home or self-care (01) ==
PROVIDERS: PCP Family Medicine; Referring Provider Nurse Practitioner Acute Care; Visit Provider Nurse Practitioner Acute Care
DX: R91.8 Other nonspecific abnormal finding of lung field (principal); R91.1 Solitary pulmonary nodule
CPT/HCPCS: 78815; A9552

== ENCOUNTER → 2024-04-21 | Outpatient (CLI) | payer MEDICARE, SELFPAY ==
[2024-02-12 08:42] VITALS: BMI 25.8
== END | disposition home or self-care (01) ==
LOC: PSN 09:30
PROVIDERS: PCP Family Medicine; Referring Provider Nurse Practitioner Acute Care; Visit Provider Nurse Practitioner Acute Care
DX: R06.02 Shortness of breath (principal)
CPT/HCPCS: 94060; 94726; 94729

== ENCOUNTER → 2024-04-23 | Outpatient (CLI) | payer MEDICARE, SELFPAY ==
[2024-02-12 08:42] VITALS: BMI 25.8
[2024-04-23 12:50] VITALS: PULSE 58; PULSE 59; PULSE 60; PULSE 63; PULSE 64; PULSE 68; PULSE 71; PULSE 72; O2SAT 91; O2SAT 94; O2SAT 95; O2SAT 96; O2SAT 97
--- NOTE | 2024-04-25 10:28 | WT_ITS ---
PSN 6 Minute Walk Test 6 Minute Walk Test 6 Minute Walk Test: 6 Minute Walk Test PSN:6-Minute Walk Test Start: 04/23/24 12:48 Freq: Status: Active Protocol: [id number].6MINW Document 04/23/24 12:50 JR (Rec: 04/23/24 12:54 JR [email or web address]) 6 Minute Walk Test Date Performed 04/23/24 Time Performed 12:30 Height 5 ft 9 in Weight: 170 lb Weight in Pounds 170.[address]: Dayami Montes De Oca [employer] Assistive device used: Walker Pre-test Oxygen Delivery Method Room Air Pulse Ox (%) 94 Pulse Rate (60-100 beats/min) 63 Dyspnea Pao Scale (0-10) 0 Exertion Pao Scale (6-20) 6 1st minute Oxygen Delivery Method Room Air Pulse Ox (%) 95 Pulse Rate (60-100 beats/min) 71 2nd minute Oxygen Delivery Method Room Air Pulse Ox (%) 91 Pulse Rate (60-100 beats/min) 72 3rd minute Oxygen Delivery Method Room Air Pulse Ox (%) 97 Pulse Rate (60-100 beats/min) 68 4th minute Oxygen Delivery Method Room Air Pulse Ox (%) 94 Pulse Rate (60-100 beats/min) 64 5th minute Oxygen Delivery Method Room Air Pulse Ox (%) 97 Pulse Rate (60-100 beats/min) 60 Dyspnea Pao Scale (0-10) 2 Exertion Pao Scale (6-20) 13 6th minute Oxygen Delivery Method Room Air Pulse Ox (%) 96 Pulse Rate (60-100 beats/min) 58 L Post-test Oxygen Delivery Method Room Air Pulse Ox (%) 96 Pulse Rate (60-100 beats/min) 59 L Full Laps Walked 4 Partial Lap, Number of Tiles Walked 0 Total Distance Walked (ft) 236 Interpretation Interpretation: The patient ambulated 236 feet over the course of 6 minutes beginning on room air with the use of a walker. Pretesting oxygen saturation was noted to be 94% on room air. With ambulation, the lele oxygen saturation was 91%. Although there was no significant exertional oxygen desaturation, there was evidence of significantly impaired walk distance. Recommendations Recommendations: There is no indication for the use of supplemental oxygen at this time.
== END | disposition home or self-care (01) ==
LOC: PSN 12:20
PROVIDERS: PCP Family Medicine; Referring Provider Nurse Practitioner Acute Care; Visit Provider Nurse Practitioner Acute Care
DX: R06.02 Shortness of breath (principal)
CPT/HCPCS: 94618

== ENCOUNTER → 2024-05-29 | Outpatient (CLI) | payer MEDICARE, SELFPAY ==
[2024-02-12 08:42] VITALS: BMI 25.8
== END | disposition home or self-care (01) ==
LOC: SL 08:13
PROVIDERS: PCP Family Medicine; Referring Provider Nurse Practitioner Acute Care; Visit Provider Nurse Practitioner Acute Care
DX: R09.02 Hypoxemia (principal)
CPT/HCPCS: 94762

== ENCOUNTER → 2024-07-03 | Outpatient (CLI) | payer MEDICARE, SELFPAY ==
[2024-02-12 08:42] VITALS: BMI 25.8
--- NOTE | 2024-07-03 09:07 | RAD_ITS ---
EXAM: XR CHEST, 2 VIEWS CLINICAL INDICATION: URI with Rigth lung rhonchi TECHNIQUE: Frontal and lateral views of the chest. COMPARISON: 03/21/2024 FINDINGS: LUNGS AND PLEURAL SPACES: Unremarkable. No consolidation or edema. No pneumothorax. No effusion. HEART: Unremarkable. Cardiac silhouette not enlarged. MEDIASTINUM: Central airways and mediastinal contour are unremarkable. BONES/JOINTS: Unremarkable. No acute fracture. SOFT TISSUES: Unremarkable. RAD/Chest PA and Lateral IMPRESSION: No radiographic evidence of acute cardiopulmonary disease. Electronically Signed: Jaziel Hernandez MD at 21:32 EDT ,
[2024-07-03 18:06] LABS: Absolute Lymphocyte Count 1.91 X10^3/uL (0.83-4.51); Absolute Neutrophil Count 4.2 X10^3/uL (2.0-7.7); Basophil# 0.06 X10^3/uL; Basophil% 0.8 % (0-1); Eosinophil# 0.16 X10^3/uL; Eosinophils% 2.2 % (0-5); Hemoglobin 14.1 g/dL (13.0-16.5); Lymphocyte # 1.91 X10^3/ul (0.83-4.51); Lymphocyte % 26.5 % (19-41); Mean Corpuscular Hgb 30.9 pg (27.0-32.0); Mean Corpuscular Volume 96.3 fL (80-94); Mean Platelet Vol. 8.6 fl (6.2-12.0); Monocyte# 0.66 X10^3/uL; Monocyte% 9.1 % (0-10); NRBC Flagged by Analyzer 0 % (0-5); Neutrophil # 4.19 X10^3/uL (2.7-7.7); Neutrophil % 58.1 % (47-70); Platelet Count 318 K/mm3 (150-450); RBC Distribution Width CV 13.3 % (11.6-14.6); RBC Distribution Width SD 47.4 fl (35.1-43.9); Red Blood Count 4.57 M/mm3 (4.6-6.2); White Blood Count 7.2 K/mm3 (4.4-11.0)
[2024-07-03 18:26] LABS: ALB/GLOB Ratio 0.7 RATIO (0.9-2.4); AST(SGOT) 14 U/L (15-37); Alanine Aminotransfer ALT/SGPT 21 U/L (16-61); Alkaline Phosphatase 32 U/L (45-117); Anion Gap 4 (5-15); BUN 15 mg/dL (7-18); BUN/Creat Ratio 13.4 RATIO (10-20); Calcium,Total 9.2 mg/dL (8.5-10.1); Chloride 104 mmol/L (98-107); Cholesterol 150 mg/dL (200); Creatinine, Serum 1.12 mg/dL (0.70-1.30); EST Glomerular Filtration Rate 69 mL/min (>60); Est Glom Filt Rate - Afr Amer 83 mL/min (>60); Globulin 4.6 g/dL (2.2-4.2); Glucose 90 mg/dL (74-106); High Density Lipoprotein 45 mg/dL; Potassium 4.2 mmol/L (3.5-5.1); Protein, Total 7.6 g/dL (6.4-8.2); Sodium Level 138 mmol/L (136-145); Triglycerides 138 mg/dL; Very Low Density Lipoprotein 28 mg/dL (5-40)
== END | disposition home or self-care (01) ==
PROVIDERS: PCP Family Medicine; Referring Provider Internal Medicine Cardiovascular Disease; Visit Provider Internal Medicine Cardiovascular Disease
DX: Z01.818 Encounter for other preprocedural examination (principal); J43.2 Centrilobular emphysema; E78.5 Hyperlipidemia, unspecified
CPT/HCPCS: 36415; 71046; 80053; 80061; 85025

== ENCOUNTER → 2024-07-25 | Outpatient (CLI) | payer MEDICARE, SELFPAY ==
[2024-02-12 08:42] VITALS: BMI 25.8
--- NOTE | 2024-07-25 08:34 | CT_ITS ---
EXAM: CT CHEST WITHOUT INTRAVENOUS CONTRAST CLINICAL INDICATION: LUNG NODULE HIGH RISK PATIENT TECHNIQUE: Helically acquired images were obtained of the chest without intravenous contrast. This CT exam was performed using one or more of the following dose reduction techniques: automated exposure control, adjustment of the mA and/or kV according to patient size, and/or use of iterative reconstruction technique. COMPARISON: 02/15/2024. FINDINGS: LUNGS AND PLEURAL SPACES: Diffuse centrilobular emphysema. Right apical pulmonary nodule with spiculated margins measuring approximately 9 mm, unchanged since the prior examination. Left apical pleural nodularity is unchanged with mean diameter of approximately 7 mm. Right basilar scarring and/or subsegmental atelectasis. No pneumothorax. HEART: Coronary artery calcifications and/or stents. Heart size is normal. No pericardial effusion. MEDIASTINUM: No significant abnormality. No mediastinal or hilar adenopathy. Esophagus is unremarkable. No hiatal hernia. THYROID: No significant abnormality. No thyroid lesions. BONES/JOINTS: Degenerative changes in the spine. No suspicious lytic or blastic abnormality. VASCULATURE: Atherosclerosis of the aorta and its visualized branch vessels. CT/Chest without Contrast IMPRESSION: 1. Diffuse centrilobular emphysema. NOTE: Emphysema on CT is an independent risk factor for lung cancer. Consider low dose CT for lung cancer screening between the ages of 50 and 77. 2. Given underlying emphysematous change, it is suitable to consider this a lung cancer screening examination and based on stability of the nodules, the assessment is as follows. ACR Lung CT Screening Reporting And Data System (Lung-RADS) score: 2 - Benign Appearance or Behavior. Recommend continued annual screening with a low-dose CT (LDCT) in 12 months. Electronically Signed: Humberto Cavazos DO at 22:04 EDT ,
== END | disposition home or self-care (01) ==
PROVIDERS: PCP Family Medicine; Referring Provider Nurse Practitioner Acute Care; Visit Provider Nurse Practitioner Acute Care
DX: R91.1 Solitary pulmonary nodule (principal)
CPT/HCPCS: 71250

== ENCOUNTER → 2024-11-03 | Outpatient (CLI) | payer MEDICARE, SELFPAY ==
[2024-02-12 08:42] VITALS: BMI 25.8
[2024-11-03 11:29] LABS: Absolute Lymphocyte Count 1.73 X10^3/uL (0.83-4.51); Absolute Neutrophil Count 3.5 X10^3/uL (2.0-7.7); Basophil# 0.03 X10^3/uL; Basophil% 0.5 % (0-1); Eosinophil# 0.16 X10^3/uL; Eosinophils% 2.6 % (0-5); Hematocrit 43.4 % (40-54); Lymphocyte # 1.73 X10^3/ul (0.83-4.51); Mean Corp Hgb Conc 32.3 g/dL (32-36); Mean Corpuscular Hgb 30.6 pg (27.0-32.0); Mean Corpuscular Volume 94.8 fL (80-94); Mean Platelet Vol. 9.3 fl (6.2-12.0); Monocyte# 0.63 X10^3/uL; Monocyte% 10.2 % (0-10); NRBC Flagged by Analyzer 0 % (0-5); Neutrophil # 3.51 X10^3/uL (2.7-7.7); Neutrophil % 56.9 % (47-70); Platelet Count 298 K/mm3 (150-450); RBC Distribution Width CV 13.7 % (11.6-14.6); RBC Distribution Width SD 47.8 fl (35.1-43.9); Red Blood Count 4.58 M/mm3 (4.6-6.2); White Blood Count 6.2 K/mm3 (4.4-11.0)
[2024-11-03 11:54] LABS: Anion Gap 8 (5-15); BUN 17 mg/dL (7-18); BUN/Creat Ratio 17.6 RATIO (10-20); Calcium,Total 9.8 mg/dL (8.5-10.1); Chloride 106 mmol/L (98-107); Creatinine, Serum 0.97 mg/dL (0.70-1.30); EST Glomerular Filtration Rate 82 mL/min (>60); Est Glom Filt Rate - Afr Amer 99 mL/min (>60); Glucose 151 mg/dL (74-106); Potassium 4.3 mmol/L (3.5-5.1); Sodium Level 140 mmol/L (136-145)
== END | disposition home or self-care (01) ==
LOC: LAB 10:43
PROVIDERS: Nurse Practitioner Family; PCP Family Medicine; Referring Provider Internal Medicine Cardiovascular Disease; Visit Provider Internal Medicine Cardiovascular Disease
DX: I95.9 Hypotension, unspecified (principal)
CPT/HCPCS: 36415; 80048; 85025

== ENCOUNTER → 2024-12-11 | Outpatient (CLI) | payer MEDICARE, SELFPAY ==
[2024-02-12 08:42] VITALS: BMI 25.8
--- NOTE | 2024-12-11 09:20 | RAD_ITS ---
PROCEDURE: ESOPHAGUS DUAL CONTRAST 12/11/2024 REASON FOR EXAM: DYSPHAGIA S/P SPINAL SURGERY TECHNIQUE: FLUOROSCOPIC TIME: 38 seconds minutes. 3.5 mGy FLUOROGRAPHIC IMAGES: 62 COMPARISON: None. FINDINGS: The patient ingested barium. Fluoroscopic imaging of the esophagus was performed. There is no evidence of esophageal obstruction. No mass lesion is seen. No evidence of gastroesophageal reflux. The patient ingested a 12 mm tablet the barium without any difficulty. RAD/Esophagus Dual Contrast IMPRESSION: Unremarkable air contrast esophagram. Reading Location: [place] [id number]
== END | disposition home or self-care (01) ==
LOC: RAD 09:08
PROVIDERS: PCP Family Medicine; Referring Provider Otolaryngology; Visit Provider Otolaryngology
DX: R13.14 Dysphagia, pharyngoesophageal phase (principal)
CPT/HCPCS: 74221

== ENCOUNTER → 2024-12-30 | Outpatient (CLI) | payer MEDICARE, SELFPAY ==
[2024-02-12 08:42] VITALS: BMI 25.8
--- NOTE | 2024-12-30 17:06 | STRESSREP ---
Stress Test Report Pharmacologic myocardial perfusion stress test. 69-year-old for preop evaluation and new onset A-fib Resting EKG demonstrates sinus rhythm with a rate of 100 bpm. Resting blood pressure is 128/80 mmHg. 0.4 mg of regadenoson was infused per usual protocol followed by rapid intravenous saline flush injection. Continuous EKG monitoring was performed. The maximum heart rate was 120 bpm which was 80% of max impacted heart rate the maximum workload was 1 metabolic equivalent. At rest there were no ST or T wave changes noted to suggest ischemia and at peak infusion nonspecific ST changes were noted which did not meet the criteria for ischemia. No clinical angina is noted. The final blood pressure was 132/80 mmHg. Myocardial perfusion protocol. 11.8 mCi of technetium 99m sestamibi was injected at rest. 0.4 mg of regadenoson was infused per usual protocol. At peak infusion 33.9 mCi of technetium 99m sestamibi was injected stress images were obtained stress and rest images were reconstructed and compared in the short axis vertical long and horizontal long axis. Gated images were also obtained. Perfusion SPECT analysis: Review of the stress images demonstrate normal uptake of tracer noted in all areas of the myocardium. The resting images similar demonstrated normal uptake of tracer noted in all areas of the myocardium. No areas of reversibility are noted to suggest ischemia and no previous infarct is noted. Gated SPECT analysis: The gated ejection fraction is 73%. Conclusion: Normal pharmacologic myocardial perfusion stress test. Preserved ejection fraction.
== END | disposition home or self-care (01) ==
LOC: CVS 06:06
PROVIDERS: PCP Family Medicine; Referring Provider Nurse Practitioner Gerontology; Visit Provider Nurse Practitioner Gerontology
DX: R07.9 Chest pain, unspecified (principal); I48.91 Unspecified atrial fibrillation
CPT/HCPCS: 78452; 93017; A9500; A4216; J2785

== ENCOUNTER → 2025-01-15 | Outpatient (CLI) | payer MEDICARE, SELFPAY ==
[2024-02-12 08:42] VITALS: BMI 25.8
== END | disposition home or self-care (01) ==
LOC: LABSPEC 15:17
PROVIDERS: PCP Family Medicine; Referring Provider Family Medicine; Visit Provider Family Medicine
DX: N39.0 Urinary tract infection, site not specified (principal)
CPT/HCPCS: 87086

== ENCOUNTER 2025-01-19 11:32 | Emergency (ER) | payer MEDICARE, SELFPAY ==
[2024-02-12 08:42] VITALS: BMI 25.8
[2025-01-19 11:33] VITALS: BP 95/62; PULSE 98; RESP 18; TEMP 36.8; O2SAT 94
[2025-01-19 11:34] VITALS: BMI 24.2
--- NOTE | 2025-01-19 12:15 | EKG12_ITS ---
Test Reason : WEAKNESS Blood Pressure : */* mmHG Vent. Rate : 90 BPM Atrial Rate : 90 BPM P-R Int : 134 ms QRS Dur : 72 ms QT Int : 338 ms P-R-T Axes : 84 24 55 degrees QTcB Int : 413 ms Normal sinus rhythm Normal ECG Confirmed by GAUDENCIO CASAS, BEAN ([id number]), editor trade journal JESSICA FERNANDO ([id number]) on 01/21/2025 11:46:38 AM Referred By: Confirmed By: BEAN RATLIFF MD
--- NOTE | 2025-01-19 12:22 | EX.ED.DYSGE1 ---
HPI <ANN Stallworth - Last Filed: 01/19/25 16:26> History of Present Illness Chief Complaint: Weakness Narrative Narrative: Patient presenting today with generalized weakness that started but worsened today, he reports he started Seroquel on . He reports that his legs feel weak, making it difficult for him to ambulate. He is here with his son. He reports that he has a history of spinal stenosis in his neck and cervical radiculopathy as well as leg weakness, he had a cervical fusion performed by Dr. Fischer 2 weeks ago and has been doing well postop until . He denies any redness or discharge from his incision site. He reports that he has had chronic dyspnea for a long time, this has been ongoing even before his surgery, he is on Eliquis and Plavix which he resumed the day of his surgery. He denies any history of blood clots. He denies known history of CHF. He denies fevers, chills, chest pain, abdominal pain, nausea, and vomiting. [facility] <ANN Stallworth - Last Filed: 01/19/25 16:26> [facility] Medical History Dyslipidemia ST elevation (STEMI) myocardial infarction involving right coronary artery (~02/04/24) GERD (gastroesophageal reflux disease) COPD (chronic obstructive pulmonary disease) Nicotine dependence, cigarettes, uncomplicated Lung nodule Home Medications ?Medication ?Instructions ?Recorded ?Last Taken ?Type pantoprazole 40 mg tablet,delayed 40 mg PO DAILY GERD 09/26/23 10/12/23 History release atorvastatin 80 mg tablet 80 mg PO QHS 30 days #30 tabs 02/06/24 Unknown Rx lisinopril 5 mg tablet 5 mg PO DAILY 30 days #30 tabs 02/06/24 Unknown Rx Held on 10/29/24. Instructions: hypotension buspirone 7.5 mg tablet 7.5 mg PO BID 03/21/24 Unknown History mirtazapine 30 mg tablet 30 mg PO QHS 03/25/24 Unknown History clopidogrel 75 mg tablet (Plavix) 75 mg PO DAILY #93 tabs 04/08/24 Unknown Rx fluticasone fur. 200 mcg-umeclid 1 ea inhalation QDAY #1 ea 05/06/24 Unknown Rx 62.5 mcg-vilant 25 mcg inhalat.powder (Trelegy Ellipta) apixaban 5 mg tablet (Eliquis) 5 mg PO BID Atrial Fibrillation 12/25/24 Unknown Rx #60 tabs acetaminophen 500 mg capsule 500 mg PO Q6H PRN pain 01/19/25 01/19/25 History gabapentin 300 mg capsule 300 mg PO QHS 01/19/25 01/18/25 History quetiapine 25 mg tablet 25 mg PO QHS 01/19/25 Unknown History Allergy/AdvReac Type Severity Reaction Status Date / Time No Known Allergies Allergy Verified 01/19/25 11:35 Surgical History Stented coronary artery (02/05/24) Social History Smoking Status: Former smoker Tobacco: How many years used: 60 second hand exposure: Yes alcohol intake: never substance use type: does not use ROS <ANN Stallworth - Last Filed: 01/19/25 16:26> ROS ED Constitutional Constitutional ED: Denies chills or fever(s) Cardiovascular Cardiovascular: Denies chest pain Respiratory/Chest Respiratory/Chest: Reports dyspnea; Denies cough or wheezing Gastrointestinal Gastrointestinal: Denies abdominal pain, nausea or vomiting Genitourinary Genitourinary ED: Denies dysuria, hematuria or urinary frequency Musculoskeletal Musculoskeletal: Denies neck pain Integumentary Denies rash Neurologic Neurologic: Reports weakness EXAM <ANN Stallworth - Last Filed: 01/19/25 16:26> Physical Exam Const Vital Signs: 01/19/25 11:33 01/19/25 12:28 01/19/25 12:30 Temperature 98.3 F 98.5 F Temperature Source Oral Oral Pulse Rate 98 86 Respiratory Rate 18 17 Respiratory Effort Normal Respiratory Pattern Normal Blood Pressure 95/62 116/70 Blood Pressure Mean 73 85 Pulse Ox 94 96 Oxygen Delivery Method Room Air Room Air Oxygen Flow Rate (L/min) 01/19/25 13:40 01/19/25 14:00 01/19/25 14:55 Temperature 98.5 F 98.5 F 98.4 F Temperature Source Oral Oral Oral Pulse Rate 88 78 90 Respiratory Rate 18 18 18 Respiratory Effort Respiratory Pattern Blood Pressure 119/91 H 149/74 H 136/84 H Blood Pressure Mean 100 99 101 Pulse Ox 96 96 96 Oxygen Delivery Method Room Air Nasal Cannula Room Air Oxygen Flow Rate (L/min) 3 01/19/25 15:29 Temperature 98.5 F Temperature Source Pulse Rate 78 Respiratory Rate 18 Respiratory Effort Respiratory Pattern Blood Pressure 149/74 H Blood Pressure Mean 99 Pulse Ox 96 Oxygen Delivery Method Oxygen Flow Rate (L/min) Positive well nourished, well developed and no apparent distress General Appearance ED: well developed HEENT Reports normocephalic and head/scalp atraumatic Mouth ED: Yes moist mucous membranes normal Eyes PERRL and EOMs intact bilaterally Neck full ROM and supple Neck Narrative: Surgical incision without surrounding erythema, dehiscence, warmth, or purulent discharge Chest Wall inspection of chest normal Resp normal respiratory effort and clear to auscultation bilaterally Cardio regular rate and regular rhythm GI soft to palpation, non-tender, non-distended and no masses Back/Spine normal ROM and normal to inspection Extremity normal to inspection and full ROM Extremity Narrative: 5/5 strength and sensation bilateral upper and lower extremities Neuro oriented x3, CN's II-XII intact bilaterally, moves all extremities, no focal motor deficits and no sensory deficits noted Sensorium / Orientation: awake and alert Psych mental status grossly normal and thought process normal Skin no rashes or lesions noted and no wounds <Dr. Lucius Ramesh, DO - Last Filed: 01/19/25 16:21> Physical Exam Const Vital Signs: 01/19/25 11:33 01/19/25 12:28 01/19/25 12:30 Temperature 98.3 F 98.5 F Temperature Source Oral Oral Pulse Rate 98 86 Respiratory Rate 18 17 Respiratory Effort Normal Respiratory Pattern Normal Blood Pressure 95/62 116/70 Blood Pressure Mean 73 85 Pulse Ox 94 96 Oxygen Delivery Method Room Air Room Air Oxygen Flow Rate (L/min) 01/19/25 13:40 01/19/25 14:00 01/19/25 14:55 Temperature 98.5 F 98.5 F 98.4 F Temperature Source Oral Oral Oral Pulse Rate 88 78 90 Respiratory Rate 18 18 18 Respiratory Effort Respiratory Pattern Blood Pressure 119/91 H 149/74 H 136/84 H Blood Pressure Mean 100 99 101 Pulse Ox 96 96 96 Oxygen Delivery Method Room Air Nasal Cannula Room Air Oxygen Flow Rate (L/min) 3 01/19/25 15:29 Temperature 98.5 F Temperature Source Pulse Rate 78 Respiratory Rate 18 Respiratory Effort Respiratory Pattern Blood Pressure 149/74 H Blood Pressure Mean 99 Pulse Ox 96 Oxygen Delivery Method Oxygen Flow Rate (L/min) [facility] <ANN Stallworth - Last Filed: 01/19/25 16:26> [facility] Narrative Medical decision making narrative: Patient presenting today with generalized weakness that started , he reports his bilateral legs feel weak, he has intact strength and sensation. He did just have a surgical fusion performed about 2 weeks ago. Prior to having his surgery performed he did have radicular symptoms to his upper and lower extremities as well as leg weakness. He reports that this feels similar to the symptoms he had before having the surgery performed. Broad workup obtained due to his weakness, his CBC and BMP are largely unremarkable, UA negative for UTI. Initial troponin mildly elevated at 25, will repeat a delta. Chest x-ray negative for infiltrate. Low suspicion for PE given he is compliant with Eliquis. The attending did speak with his surgeon, Dr. Fischer, he would like patient to be transferred to [place] for MRI and further workup. Patient will be transferred in stable condition. Lab Data Labs: Laboratory Results - last 24 hr 01/19/25 01/19/25 11:45 13:37 WBC 8.0 RBC 3.96 L Hgb 12.6 L Hct 38.8 L MCV 98.0 H MCH 31.8 MCHC 32.5 RDW Std Deviation 47.4 H RDW Coeff of Juliane 13.2 Plt Count 400 MPV 8.6 Immature Gran % (Auto) 1.100 H Neut % (Auto) 80.3 H Lymph % (Auto) 12.2 L Garza % (Auto) 5.6 Eos % (Auto) 0.6 Baso % (Auto) 0.2 Absolute Neuts (auto) 6.5 Absolute Lymphs (auto) 0.98 Nucleated RBC % 0 Sodium 141 Potassium 3.7 Chloride 102 Carbon Dioxide 25.7 Anion Gap 12 BUN 11 Creatinine 0.87 Estim Creat Clear Calc 79.01 Est GFR (MDRD) Non-Af 93 BUN/Creatinine Ratio 12.1 Glucose 118 H Calcium 9.1 Troponin T High Sens 25 H Urine Color Yellow Urine Clarity Sl. Cloudy Urine pH 6.5 Ur Specific [place] 1.010 Urine Protein 15 H Urine Glucose (UA) Normal Urine Ketones Negative Urine Occult Blood Negative Urine Nitrite Negative Urine Bilirubin Negative Urine Urobilinogen Normal Ur Leukocyte Esterase Negative Urine RBC 0 SEEN Urine WBC 0 SEEN Ur Squamous Epith Cells 0 SEEN Urine Bacteria 0 SEEN Urine Mucus 0 SEEN Radiography X-Ray: Read by ED Physician Diagnostic Testing: Clinical Impression(s) from Imaging Studies Chest X-Ray 01/19/25 12:40 IMPRESSION: No acute process is identified in the chest. Reading Location: [facility] EK Initial EKG: Comments: 90 bpm, normal sinus rhythm, no ST elevation, interpreted by attending ED physician <Dr. Lucius Ramesh, DO - Last Filed: 01/19/25 16:21> [facility] Lab Data Attestation: I reviewed the patient's lab results. Labs: Laboratory Results - last 24 hr 01/19/25 01/19/25 11:45 13:37 WBC 8.0 RBC 3.96 L Hgb 12.6 L Hct 38.8 L MCV 98.0 H MCH 31.8 MCHC 32.5 RDW Std Deviation 47.4 H RDW Coeff of Juliane 13.2 Plt Count 400 MPV 8.6 Immature Gran % (Auto) 1.100 H Neut % (Auto) 80.3 H Lymph % (Auto) 12.2 L Garza % (Auto) 5.6 Eos % (Auto) 0.6 Baso % (Auto) 0.2 Absolute Neuts (auto) 6.5 Absolute Lymphs (auto) 0.98 Nucleated RBC % 0 Sodium 141 Potassium 3.7 Chloride 102 Carbon Dioxide 25.7 Anion Gap 12 BUN 11 Creatinine 0.87 Estim Creat Clear Calc 79.01 Est GFR (MDRD) Non-Af 93 BUN/Creatinine Ratio 12.1 Glucose 118 H Calcium 9.1 Troponin T High Sens 25 H Urine Color Yellow Urine Clarity Sl. Cloudy Urine pH 6.5 Ur Specific [place] 1.010 Urine Protein 15 H Urine Glucose (UA) Normal Urine Ketones Negative Urine Occult Blood Negative Urine Nitrite Negative Urine Bilirubin Negative Urine Urobilinogen Normal Ur Leukocyte Esterase Negative Urine RBC 0 SEEN Urine WBC 0 SEEN Ur Squamous Epith Cells 0 SEEN Urine Bacteria 0 SEEN Urine Mucus 0 SEEN Radiography Diagnostic Testing: Clinical Impression(s) from Imaging Studies Chest X-Ray 01/19/25 12:40 IMPRESSION: No acute process is identified in the chest. Reading Location: [facility] Treatment and Re-Evaluation :: Attending note: I have personally performed a face to face assessment of the patient and have reviewed the TIMUR note. I personally made/approved the management plan and take responsibility for the patient management. I performed a substantive portion of the visit including all aspects of the following. My berry findings include: 2 weeks postop cervical fusion by Dr. Fischer at [place]. Son is present. Initial surgery 4 months ago having leg weakness and numbness along with left arm weakness. He states surgery did not take care of the leg weakness however right arm became weak and left arm was improved. Revision performed 2 weeks ago leg symptoms proved arm symptoms improved. He was at home ambulating with a walker. He was put on Eliquis after surgery for what sounds like paroxysmal A-fib. Denies neck pain denies fevers. This morning waking legs were weak similar to previous surgery. Son had to carry the patient from the house to the car into the emergency department. They did call surgery office today was waiting callback. No urinary symptoms. No cough. No vomiting or diarrhea. Patient able to lift both legs off the bed he has pulses intact. Son reports similar issue in the past where he is able to move his legs however just could not walk. Reported with leg weakness never had neck or back pain in the past. Patient had workup labs being stable. EKG normal two-view chest x-ray by myself shows no acute process. Urine was negative. Transfer is initiated to [facility]. 1400: Patient being postop with similar symptoms leg weakness, I did speak with his surgeon Dr. Fischer, would like patient transferred ED to ED to [facility]. He reports patient had cervical fusion from C2-C7 therefore the vertebral bones should be stable. He does confirm patient had resting movement of his legs with his inability ambulate in the past prior to surgery. [facility] facility will call him and he will initiate MRI studies at the facility as he would like images there to review. Additional image of other regions may need to be obtained at the facility. 1435: I spoke with [place] ED, Dr. Kwan, updated on discussion with Dr. Fischer and request. Patient accepted to the ED. Discharge Plan Triage Chief Complaint: Weakness ED Midlevel Provider: Frances Nova ED Provider: Lucius Ramesh Dx/Rx/DC Orders Clinical Impression: Bilateral leg weakness, Status post cervical spinal fusion Prescriptions: No Action pantoprazole 40 mg tablet,delayed release (DR/EC) 40 mg PO DAILY Patient Comments: ONE TABLET TABLET BY MOUTH DAILY mirtazapine 30 mg tablet 30 mg PO QHS Trelegy Ellipta 200-62.5-25 mcg blister with device 1 ea inhalation QDAY Qty: 1 11RF Eliquis 5 mg tablet 5 mg PO BID Qty: 60 12RF Rx Instructions: Start when surgeon states it is ok to start blood thinner atorvastatin 80 mg Tablet 80 mg PO QHS 30 Days Qty: 30 4RF lisinopril 5 mg Tablet 5 mg PO DAILY 30 Days Qty: 30 2RF quetiapine 25 mg tablet 25 mg PO QHS gabapentin 300 mg capsule 300 mg PO QHS acetaminophen 500 mg capsule 500 mg PO Q6H PRN (Reason: pain) buspirone 7.5 mg tablet 7.5 mg PO BID clopidogrel [Plavix] 75 mg tablet 75 mg PO DAILY Qty: 93 3RF Rx Instructions: 300mg (4 pills) day 1, 75mg (1 pill) daily starting day 2 Primary Care Provider: Scott Mejia Referrals: Scott Mejia MD [Primary Care Provider] - Print Language: [place] Disposition Disposition: Acute Care Hospital Discharge Location: [facility] Discharge Date/Time: 01/19/25 15:31
[2025-01-19] MEDS: 0.9% Normal Saline (1000mL) 1,000 ML 999 ML IV (12:25)
[2025-01-19 12:28] VITALS: BP 116/70; PULSE 86; RESP 17; TEMP 36.9; O2SAT 96
[2025-01-19 12:30] LABS: Absolute Lymphocyte Count 0.98 X10^3/uL (0.83-4.51); Absolute Neutrophil Count 6.5 X10^3/uL (2.0-7.7); Basophil# 0.02 X10^3/uL; Basophil% 0.2 % (0-1); Eosinophil# 0.05 X10^3/uL; Eosinophils% 0.6 % (0-5); Hematocrit 38.8 % (40-54); Hemoglobin 12.6 g/dL (13.0-16.5); Lymphocyte # 0.98 X10^3/ul (0.83-4.51); Lymphocyte % 12.2 % (19-41); Mean Corp Hgb Conc 32.5 g/dL (32-36); Mean Corpuscular Hgb 31.8 pg (27.0-32.0); Mean Platelet Vol. 8.6 fl (6.2-12.0); Monocyte# 0.45 X10^3/uL; Monocyte% 5.6 % (0-10); NRBC Flagged by Analyzer 0 % (0-5); Neutrophil # 6.45 X10^3/uL (2.7-7.7); Neutrophil % 80.3 % (47-70); Platelet Count 400 K/mm3 (150-450); RBC Distribution Width CV 13.2 % (11.6-14.6); RBC Distribution Width SD 47.4 fl (35.1-43.9); Red Blood Count 3.96 M/mm3 (4.6-6.2)
--- NOTE | 2025-01-19 12:40 | RAD_ITS ---
PROCEDURE: CHEST PA AND LATERAL 01/19/2025 REASON FOR EXAM: SOB TECHNIQUE: Frontal and lateral views of the chest. COMPARISON: March 20, 2021 FINDINGS: A device is noted overlying the anterior chest. Heart size and mediastinal configuration are within normal limits. There is no focal infiltrate or consolidation. There is no pneumothorax or effusion. Hardware is noted in the cervical spine. Aortic calcifications are visible. RAD/Chest PA and Lateral IMPRESSION: No acute process is identified in the chest. Reading Location: [facility]
[2025-01-19 13:13] LABS: Troponin T High Sensitivity 25 ng/L (<=22)
[2025-01-19 13:18] LABS: Anion Gap 12 (5-15); BUN 11 mg/dL (4-19); BUN/Creat Ratio 12.1 RATIO (10-20); Calcium,Total 9.1 mg/dL (7.6-11.0); Carbon Dioxide 25.7 mmol/L (21.0-32.0); Chloride 102 mmol/L (98-108); Creatinine, Serum 0.87 mg/dL (0.70-1.20); EST Glomerular Filtration Rate 93 (>60); Estimated Creatinine Clearance 79.01 ml/min (50-250); Glucose 118 mg/dL (70-99); Potassium 3.7 mmol/L (3.3-5.1); Sodium Level 141 mmol/L (133-145)
[2025-01-19 13:40] VITALS: BP 119/91; PULSE 88; RESP 18; TEMP 36.9; O2SAT 96
[2025-01-19 13:44] LABS: Bacteria 0 SEEN /hpf (None Seen); Mucous, Urine 0 SEEN /hpf (<or=2+); Red Blood Cells-Urine 0 SEEN /hpf (0-5); Squamous Epithelial Cells - UA 0 SEEN /hpf (0-5); White Blood Cells 0 SEEN /hpf (0-5)
[2025-01-19 13:47] LABS: Color, Urine Yellow (Yellow); Glucose, Dipstick Normal (Normal); Ketone-Dipstick Negative (Negative); Leukocyte Esterase-Dipstick Negative /ul (Negative); Nitrite-Dipstick Negative (Negative); Occult Blood-Urine Negative /ul (Negative); Protein-Dipstick 15 mg/dl (Negative); Urine Bilirubin Dipstick Negative (Negative); Urine Clarity Sl. Cloudy (Clear); Urine Urobilinogen Normal (Normal); Urine pH 6.5 (5.0 - 8.0)
[2025-01-19 14:00] VITALS: BP 149/74; PULSE 78; RESP 18; TEMP 36.9; O2SAT 96
[2025-01-19 14:55] VITALS: BP 136/84; PULSE 90; RESP 18; TEMP 36.9; O2SAT 96
[2025-01-19] MEDS: Acetaminophen 500 MG Tablet 1000 MG PO (15:03)
[2025-01-19 15:29] VITALS: BP 149/74; PULSE 78; RESP 18; TEMP 36.9; O2SAT 96
== END 2025-01-19 15:31 | disposition short-term general hospital (02) ==
LOC: ED 12:36
PROVIDERS: Physician Assistant; Emergency Provider Emergency Medicine; PCP Family Medicine; Visit Provider Emergency Medicine
DX: R53.1 Weakness (principal); J44.9 Chronic obstructive pulmonary disease, unspecified; Z98.1 Arthrodesis status; E78.5 Hyperlipidemia, unspecified; I25.2 Old myocardial infarction; Z79.02 Long term (current) use of antithrombotics/antiplatelets; Z79.899 Other long term (current) drug therapy; Z79.01 Long term (current) use of anticoagulants; Z87.891 Personal history of nicotine dependence
CPT/HCPCS: 71046; 80048; 81001; 84484; 85025; 93005; 96360; 96361; 99285; A4216

== ENCOUNTER → 2025-07-27 | Outpatient (CLI) | payer MEDICARE, SELFPAY ==
[2024-02-12 08:42] VITALS: BMI 25.8
--- NOTE | 2025-07-27 13:14 | CT_ITS ---
PROCEDURE: CT/Low Dose CT Lung Screening
== END | disposition home or self-care (01) ==
LOC: CT 13:12
PROVIDERS: PCP Family Medicine; Referring Provider Nurse Practitioner Acute Care; Visit Provider Nurse Practitioner Acute Care
DX: Z12.2 Encounter for screening for malignant neoplasm of respiratory organs (principal); R91.1 Solitary pulmonary nodule; F17.210 Nicotine dependence, cigarettes, uncomplicated
CPT/HCPCS: 71271

== ENCOUNTER → 2025-08-14 | Outpatient (CLI) | payer MEDICARE, SELFPAY ==
[2024-02-12 08:42] VITALS: BMI 25.8
[2025-08-14 10:44] LABS: AST(SGOT) 21 U/L (<=37); Alanine Aminotransfer ALT/SGPT 22 U/L (<=46); Albumin, Serum 3.9 g/dL (3.4-4.8); Alkaline Phosphatase 33 U/L (40-129); Bilirubin, Direct 0.18 mg/dL (0.00-0.30); Cholesterol 157 mg/dL (<=200); Globulin 3.2 g/dL (2.2-4.2); Low Density Lipoprotein Calc. 89 mg/dL; Triglycerides 68 mg/dL; Very Low Density Lipoprotein 14 mg/dL (5-40); cholesterol:hdl ratio screen 2.85
== END | disposition home or self-care (01) ==
PROVIDERS: PCP Family Medicine; Referring Provider Nurse Practitioner Gerontology; Visit Provider Nurse Practitioner Gerontology
DX: I48.91 Unspecified atrial fibrillation (principal); E78.5 Hyperlipidemia, unspecified
CPT/HCPCS: 36415; 80061; 80076; 93225; 93226

== ENCOUNTER → 2025-09-18 | Outpatient (CLI) | payer MEDICARE, SELFPAY ==
[2024-02-12 08:42] VITALS: BMI 25.8
--- NOTE | 2025-09-18 07:48 | ART_ITS ---
Reason For Study Reason For Study: PAD Procedure A bilateral lower extremity continuous wave Doppler with analog waveform analysis,segmental pressures,and ankle brachial indexes without exercise. Left Segmental Pressures Left brachial= 140mmHg. Left posterior tibial artery = 153mmHg. Left dorsalis pedis artery = 126mmHg. Left digit = 126 mmHg. The left dorsalis pedis waveforms are triphasic. The left posterior tibial artery waveforms are triphasic. Right Segmental Pressures Right brachial= 130mmHg. Right posterior tibial artery = 148mmHg. Right dorsalis pedis artery = 126mmHg. Right digit = 150 mmHg. The right dorsalis pedis waveforms are triphasic. The right posterior tibial artery waveforms are triphasic. Indices The right ankle brachial index by the dorsalis pedis is 0.90. The right ankle brachial index by the posterior tibial artery is 1.06. The right digital-brachial index is 1.07. The left ankle brachial index by the dorsalis pedis is 0.90. The left ankle brachial index by the posterior tibial artery is 1.09. The left digital-brachial index is 0.90. VL/Lower Ext Art Exam w/o Exercis Interpretation Summary Triphasic Doppler waveforms are noted at ankle level bilaterally. Pulse-volume recordings appear diminished at digital level on the left, but satisfactory at all other levels bilaterally. Resting an kle-brachial indices are normal bilaterally. Digital-brachial indices are normal bilaterally. There is no evidence of significant arterial occlusive disease in the lower ext remities bilaterally. Ordering Physician: Mando Suárez Referring Physician: Scott Mejia Performed By: Anali Larson RVT
--- OUTSIDE RECORDS SUMMARY | 2025-09-18 07:59 | XMS RPT_ITS | CCD ---
Author Organization [facility] Care Team Providers Care Binding Cutter Synthetic Cloth Name Role Phone Unavailable Primary Care Provider Unavailabl e Dr. Scott eMjia Primary Care Provider Dr. Scott Mejia Referring Provider Dr. Scott Mejia Other Provider Dr. Nelly Sierra Attending Provider [phone] Rimma Tavares Attending Provider Dr. Mannie Ibarra Attending Provider Dr. Justin Jim Emergency Provider Dr. Annmarie Al Admit Provider Dr. Annmarie Al Attending Provider Dr. Annmarie Al Other Provider Dr. Ofelia Parson Other Provider Dr. Sina Junior Other Provider Dr. Mannie Ibarra Other Provider Dr. Neil Ozuna Other Provider Dr. Lashawn Kumar Other Provider Dr. Drew Gooden Other Provider Dr. Griselda Ruiz Other Provider Dr. Maylin Pantoja Other Provider Unavailable Dr. Gab Doty Other Provider Dr. Pasha Ayon Other Provider Dr. Allan Zarate Other Provider Dr. Jl Murphy Other Provider MD Raf Murillo Other Provider Unavailable Dr. Aida Chaparro Other Provider MD Debbie Morrell Other Provider Unavailable Dr. Leyda Ramos Other Provider [phone] Mary Mcclure Other Provider Dr. Hermelindo Combs Other Provider [phone] Fabi Koo Other Provider Dr. Theo Wu Other Provider Dr. Ruben Cat Other Provider MD Lindsay Montana Other Provider Dr. Nick Noyola Other Provider Dr. Lupe Meza Other Provider Dr. Naveen High Other Provider Dr. Mariah Ayala Other Provider Dr. Geovany Rubin Other Provider Dr. Yaquelin Hurtado Other Provider Dr. Abhijeet Jessica Other Provider Dr. Marilou Gallego Other Provider Unavailable MD Tesfaye Nunez Other Provider Unavailable Dr. Radha Rodriguez Attending Provider [phone] Marjan Pizarro Attending Provider Dr. Marjan Pizarro Other Provider JL ANAYA Attending Unavailable Dr. Annmarie Al Referring Provider [phone] Falguni SEMICONDUCTOR EQUIPMENT TECHNICIAN, SEMICONDUCTOR EQUIPMENT TECHNICIAN-C Dayami Attending Provider [phone] JL ANAYA Referring Unavailable JL ANAYA Referring Unavailable JL ANAYA Referring Unavailable Dr. Scott Mejia Primary Care Provider Dr. Scott Mejia Referring Provider Dr. Rimma Tavares Attending Provider Dr. Mannie Ibarra Attending Provider Dr. Justin Jim Emergency Provider Dr. Annmarie Al Admit Provider Dr. Annmarie Al Attending Provider Dr. Annmarie Al Other Provider Dr. Annmarie Al Referring Provider Dr. Ofelia Parson Other Provider Dr. Sina Junior Other Provider Dr. Mannie Ibarra Other Provider Dr. Neil Ozuna Other Provider Dr. Lashawn Kumar Other Provider [phone] Dr. Drew Gooden Other Provider Dr. Griselda Ruiz Other Provider Dr. Maylin Pantoja Other Provider Unavailable Dr. Gab Doty Other Provider Dr. Pasha Ayon Other Provider Dr. Allan Zarate Other Provider Dr. Jl Murphy Other Provider [phone] MD Raf Murillo Other Provider Unavailable Dr. Aida Chaparro Other Provider MD Debbie Morrell Other Provider Unavailable Dr. Leyda Ramos Other Provider Dr. Mary Mcclure Other Provider Dr. Hermelindo Combs Other Provider Dr. Fabi Koo Other Provider Dr. Theo Wu Other Provider Dr. Ruben Cat Other Provider MD Lindsay Montana Other Provider Dr. Nick Noyola Other Provider Dr. Lupe Meza Other Provider Dr. Naveen High Other Provider Dr. Mariah Ayala Other Provider Dr. Geovany Rubin Other Provider Dr. Yaquelin Hurtado Other Provider Dr. Abhijeet Jessica Other Provider Dr. Marilou Gallego Other Provider Unavailable MD Tesfaye Nunez Other Provider Unavailable Dr. Radha Rodriguez Attending Provider Korafua, Dr. Marjan Holder Attending Provider Koram, Dr. Marjan Holder Other Provider Falguni SEMICONDUCTOR EQUIPMENT TECHNICIAN, SEMICONDUCTOR EQUIPMENT TECHNICIAN-C Dayami Attending Provider Dr. Fer Mcintyre Attending Provider Dr. Marjan Pizarro Referring Provider [phone] Scott Mejia Primary Care Provider Dr. Mannie Ibarra Attending Provider Dr. Scott Mejia Referring Provider MANDO FISCHER DO Attending Kaitlynn MEJIA MD, DR SCOTT Casillas Primary Care UnavailMANDO Rajan DO Attending Kaitlynn MEJIA MD, DR SCOTT Casillas Primary Care Unavailabl e MANDO FISCHER DO Attending Kaitlynn MEJIA MD, DR SCOTT Casillas Primary Care Unavailabl e Unavailable Primary Care Provider Kaitlynn MEJIA MD, DR SCOTT Casillas Primary Care Physician Roberto CASAS, Dr. Chavez Primary Care Provider [phone] Dr. Carole Ruiz MD Attending Provider Sara CASAS, Dr. Warren Referring Provider Renate CASAS, Dr. Cruz Attending Provider Renate CASAS, Dr. Cruz Referring Provider Roberto CASAS, Dr. Chavez Referring Provider Trell SEMICONDUCTOR EQUIPMENT TECHNICIAN-C, Azucena Attending Provider Trell SEMICONDUCTOR EQUIPMENT TECHNICIAN-C, Azucena Referring Provider Trell SEMICONDUCTOR EQUIPMENT TECHNICIAN-C, Azucena Other Provider Miguelina CASAS, Dr. Monroe Attending Provider [phone] Diamond Yeung Unavailable Adiel MYRICK MD, DR GILBERT Attending Kaitlynn MEJIA MD, DR SCOTT Casillas Primary Care Unavailabl noelle FISCHER DO, MANDO Zamorano Consulting Kaitlynn CONNOLLY, DR. SCOTT BAUTISTA Consulting Unavai chaitanya FISCHER DO, MANDO Zamorano Attending Kaitlynn MEJIA MD, DR SCOTT Casillas Primary Care Unavailrosenda FISCHER DO, MANDO Zamorano Admitting Unavailrosenda YOUNG MD, HERMELINDO Consulting Unavailable BRANDON WASHBURN, BARRIE Rae Consulting Unavailable SIENNA CASAS, DR STONE Consulting Unavailab darin FISCHER DO, MANDO Zamorano Attending Kaitlynn MEJIA MD, DR SCOTT Casillas Primary Care Unavailabl noelle FISCHER DO, MANDO Zamorano Attending Kaitlynn MEJIA MD, DR SCOTT Casillas Primary Care Unavailrosenda FISCHER DO, MANDO Zamorano Attending Kaitlynn MEJIA MD, DR SCOTT Casillas Primary Care UnavailJUAN Lima Consulting Unavailable MEGHAN WASHBURN, MANDO Zamorano Admitting Kaitlynn LUNDY MD, CAROLE Mosher Consulting Unavailable AMY WASHBURN, TOMMY Consulting Kaitlynn MÉNDEZ MD, MANDO Corbett Consulting Adiel Mejia MD, Dr. Chavez Primary Care Provider Sara CASAS, Dr. Warren Attending Provider Dr. Scott Mejia MD Attending Provider Dr. Lucius Ramesh DO Attending Provider Dr. Lucius Ramesh DO Emergency Provider Dayami Giles Attending Provider ROBERTO CASAS, DR SCOTT Casillas Primary Care Physician [phone] SAWYER CASAS, TANIYA Rae Attending Adiel MEJIA MD, DR SCOTT Casillas Primary Care Kaitlynn MEJIA MD, DR SCOTT Casillas Primary Care Unavailrosenda FISCHER DO, MANDO Zamorano Attending Kaitlynn MEJIA MD, DR SCOTT Casillas Primary Care Unavailabl MANDO Wise DO Attending Unavailabl e Mejia, Scott Primary Care Unavailable Anthony Dewitt Attending Unavailable Anthony Dewitt Referring Unavailable Mejia, Scott Primary Care Unavailable Trell SALEH, Azucena Attending Unavailable Trell SALEH, Azucena Referring Unavailable Mejia, Scott Attending Unavailable Mejia, Scott Referring Unavailable Mejia, Scott Primary Care Unavailable Mejia, Scott Primary Care Unavailable Trell SEMICONDUCTOR EQUIPMENT TECHNICIAN, Azucena Attending Unavailable Trell SEMICONDUCTOR EQUIPMENT TECHNICIAN, Azucena Referring Unavailable Lucius Ramesh Attending Unavailable Mejia, Scott Primary Care Unavailable Mejia, Scott Referring Unavailable Mejia, Scott Primary Care Unavailable Falguni SEMICONDUCTOR EQUIPMENT TECHNICIAN, Dayami Attending Unavailable Trell SEMICONDUCTOR EQUIPMENT TECHNICIAN, Azucena Attending Unavailable Mejia, Scott Referring Unavailable Mejia, Scott Primary Care Unavailable Mejia, Scott Primary Care Unavailable Mejia, Scott Referring Unavailable Trell SALEH, Azucena Attending Unavailable Mejia, Scott Primary Care Unavailable Carole Ruiz Attending Unavailable Trell SEMICONDUCTOR EQUIPMENT TECHNICIAN, Azucena Referring Unavailable Mejia, Scott Primary Care Unavailable Fer Mcintyre Attending Unavailable Trell SEMICONDUCTOR EQUIPMENT TECHNICIAN, Azucena Referring Unavailable Trell SEMICONDUCTOR EQUIPMENT TECHNICIAN, Azucena Consulting Unavailable Trell SALEH, Azucena Attending Unavailable Mejia, Scott Referring Unavailable Mejia, Scott Primary Care Unavailable Mejia, Scott Primary Care Unavailable Falguni SALEH, Dayami Attending Unavailable Falguni SEMICONDUCTOR EQUIPMENT TECHNICIAN, Dayami Referring Unavailable Mejia, Scott Primary Care Unavailable Carole Ruiz Attending Unavailable Sara, Carole Referring Unavailable Medications Current Medications Medication Drug Class(es) Dates Sig (Normalized) Sig (Original) acetaminophen 500 mg oral capsule (1 source) Start: 01-19-2025 take 1 capsule by mouth every six hours as needed for pain Acetaminophen 500 mg capsule Active 500 mg PO EVERY 6 HOURS as needed for pain January 19, 2025 12:00am apixaban 5 mg oral tablet (5 sources) Factor Xa Inhibitor Start: 12-25-2024 take 1 tablet by mouth twice daily Eliquis 5 mg oral tablet Take 1 tab twice a day Start Date: 01/06/25 Status: Ordered Medication Dispense Status: Completed Total Allowed Fills: 1 Fills Dispensed: 0 aspirin 81 mg delayed release oral tablet (20 sources) Platelet Aggregation Inhibitor, Nonsteroidal Anti-inflammatory Drug Start: 09-26-2023 End: 01-19-2025 aspirin 81 mg oral delayed release tablet Dose : 81 mg = 1 tab(s), Oral, qDay, # 30 tab(s), 0 Refill(s) Start Date: 01/19/25 Status: Ordered Quantity: 30.0 Unit: tab(s) Repeat number: 1 take 1 capsule by mouth once pushpa ly aspirin 81 mg cap Take 81 mg by mouth once daily. Active Comment on above: Take 81 mg by mouth once daily. atorvastatin 80 mg oral tablet (20 sources) HMG-CoA Reductase Inhibitor Start: 02-06-2024 atorvastatin 80 mg oral tablet Dose : 80 mg = 1 tab(s), Oral, qAM, # 100 tab(s), 0 Refill(s) Start Date: 08/04/24 Status: Ordered Medication Dispense Status: Completed Quantity: 100.0 Unit: tab(s) Total Allowed Fills: 1 Fills Dispensed: 0 Start: 09-26-2023 End: 02-06-2024 take 1 tablet by mouth once daily Atorvastatin 40 mg tablet Discontinued 40 mg PO DAILY September 26, 2023 1:00am February 06, 2024 9:05am HLD Start: 09-26-2023 Atorvastatin A ctive MG PO September 26, 2023 12:00am Comment on above: Take 40 mg by mouth once daily. busPIRone hydrochloride 7.5 mg oral tablet (10 sources) Start: 03-21-2024 busPIRone 7.5 mg oral tablet Dose : 7.5 mg = 1 tab(s), Oral, BID, 0 Refill(s) Start Date: 04/29/24 Status: Ordered Medication Dispense Status: Completed Total Allowed Fills: 1 Fills Dispensed: 0 carvedilol 6.25 mg oral tablet (11 sources) alpha-Adrenergic Shannon, beta-Adrenergic Shannon Start: 01-19-2025 carvedilol 6.25 mg oral tablet Dose : 6.25 mg = 1 tab(s), Oral, BIDM, # 180 tab(s), 0 Refill(s) Start Date: 01/19/25 Status: Ordered Medication Dispense Status: Completed Quantity: 180.0 Unit: tab(s) Total Allowed Fills: 1 Fills Dispensed: 0 Start: 08-04-2024 carvedilol 6.2 5 mg oral tablet Dose : 6.25 mg = 1 tab(s), Oral, BID, # 180 tab(s), 0 Refill(s) Start Date: 08/04/24 Status: Ordered Quantity: 180.0 Unit: tab(s) Repeat number: 1 Start: 02-06-2024 End: 01-19-2025 Carvedilol 6.25 mg tablet Di scontinued 6.25 mg PO TWICE A DAY 180 90 February 26, 2024 9:08am January 19, 2025 1:07pm On Hold: hypotension Hold for heart less than 50 or systolic blood pressure less than 100 mmHg. Chlorpheniramine (6 sources) Histamine-1 Receptor Antagonist take 10 mg by mouth once daily chlorpheniramine maleate (ALLERGY 4-HOUR ORAL) Take 10 mg by mouth once daily. Active take 10 mg by mouth once daily c hlorpheniramine maleate (ALLERGY 4-HOUR ORAL) Take 10 mg by mouth once daily. 0 Active Comment on above: Take 10 mg by mouth once daily. clopidogrel 75 mg oral tablet (20 sources) P2Y12 Platelet Inhibitor Start: 04-29-2024 clopidogrel 75 mg oral tablet Dose : 75 mg = 1 tab(s), Oral, qAM, Last Dose 12/25/24, 0 Refill(s) Start Date: 04/29/24 Status: Ordered Medication Dispense Status: Completed Total Allowed Fills: 1 Fills Dispensed: 0 Start: 04-08-2024 take [address] [facility] once daily Clopidogrel (Plavix) 75 mg tablet Active 75 mg PO DAILY 93 April 08, 2024 12:00am 300mg (4 pills) day 1, 75mg (1 pill) daily starting day 2 Start: 10-17-2023 End: 02-04-2024 take 1 tablet by mouth once daily Clopidogrel 75 mg Tablet Discontinued 75 mg PO DAILY October 17, 2023 1:00am February 04, 2024 10:15pm Comment on above: Take 75 mg by mouth once daily. diazePAM 5 mg oral tablet (1 source) Benzodiazepine Start: 10-02-2024 diazePAM 5 mg oral tablet See Instructions, Take one tablet 30 minutes prior to MRI, # 1 tab(s), 0 Refill(s), Pharmacy: [facility]/pharmacy #[id number], Cervical spondylosis with myelopathy, 175, cm, 09/09/24 11:05:00 EST, Height, 78.2, kg, 08/18/24 18:49:00 EST, Dosing Weight Start Date: 10/02/24 Status: Ordered Quantity: 1.0 Unit: tab(s) Repeat number: 1 Indication: Other spondylosis with myelopathy, cervical region Fluticasone-Umeclidin -Vilanter (6 sources) Start: 05-06-2024 Lgfhxnjhwvp-Pqkfizmml-O ilanter (Trelegy Ellipta) 200-62.5-25 mcg blister with device Active 1 NMA INHALATION daily 10 04May 06, 2024 10:20am Start: 05-06-2024 Fluticasone-Um eclidin-Vilanter (Trelegy Ellipta) 200-62.5-25 mcg blister with device Active 1 NMA INHALATION daily May 06, 2024 10:20am Start: 03-25-2024 End: 05-06-2024 Idsysuqpyem-Riwbytvzy-Vdnwrm er (Trelegy Ellipta) 200-62.5-25 mcg blister with device Discontinued 1 NMA INHALATION daily March 25, 2024 12:00am May 06, 2024 10:21am gabapentin 300 mg oral capsule (20 sources) Anti-epileptic Agent Start: 01-19-2025 gabapenti n 300 mg oral capsule Dose : 300 mg = 1 cap(s), Oral, qHS, 73 Start Date: 01/20/25 Status: Ordered Medication Dispense Status: Completed Total Allowed Fills: 1 Fills Dispensed: 0 Start: 09-27-2023 End: 12-25-2024 take 1 capsule by mouth at bedtime Gabapentin 300 mg capsule Discontinued 300 mg PO AT BEDTIME October 11, 2023 1:00am December 25, 2024 10:00am nerve pain take 300 mg by mouth once daily gabapentin enacarbil 300 mg TbER Take 300 mg by mouth once daily. Active Comment on above: Take 300 mg by mouth once daily. ibuprofen 200 mg oral tablet (6 sources) Nonsteroidal Anti-inflammatory Drug take 200 mg by mouth four times daily ibuprofen (ADVIL ORAL) Take 200 mg by mouth four times daily. Active Comment on above: Take 200 mg by mouth four times daily. lisinopril 5 mg oral tablet (8 sources) Angiotensin Converting Enzyme Inhibitor Start: End: lisinopril 5 mg oral tablet Dose : 5 mg = 1 tab(s), Oral, qDay, # 30 tab(s), 0 Refill(s) Start Date: 01/19/25 Status: Ordered Medication Dispense Status: Completed Quantity: 30.0 Unit: tab(s) Total Allowed Fills: 1 Fills Dispensed: 0 mirtazapine 30 mg oral tablet (10 sources) Start: 4 mirtazapine 30 mg oral tablet Dose : 30 mg = 1 tab(s), Oral, qHS, 0 Refill(s) Start Date: 04/29/24 Status: Ordered Medication Dispense Status: Completed Total Allowed Fills: 1 Fills Dispensed: 0 oxyCODONE hydrochloride 5 mg oral tablet (1 source) Opioid Agonist Start: 5 oxyCODONE 5 mg oral tablet ( IMMEDIATE release ) Dose : 5 mg = 1 tab(s), Oral, q6h, PRN for pain, # 12 tab(s), 0 Refill(s), 73 Start Date: 01/19/25 Status: Ordered Quantity: 12.0 Unit: tab(s) Repeat number: 1 pantoprazole 40 mg delayed release oral tablet (20 sources) Proton Pump Inhibitor Start: 4 Pantoprazole Active MG PO September 26, 2023 12:00am Start: 04-25-2015 Protonix 40 mg oral enteric coated tablet Dose : 40 mg = 1 tab(s), Oral, qDayAC, # 30 tab(s), 6 Refill(s) Start Date: 04/25/15 Status: Ordered Medication Dispense Status: Completed Quantity: 30.0 Unit: tab(s) Total Allowed Fills: 7 Fills Dispensed: 0 take 40 mg by mouth once daily p antoprazole sodium (PANTOPRAZOLE ORAL) Take 40 mg by mouth once daily. Active Comment on above: Take 40 mg by mouth once daily. QUEtiapine 25 mg oral tablet (3 sources) Atypical Antipsychotic Start: 01-19-2025 End: 03-24-2025 QUEtiapine 25 mg oral tablet Dose : 25 mg = 1 tab(s), Oral, qHS, 0 Refill(s) Start Date: 01/19/25 Status: Ordered Medication Dispense Status: Completed Total Allowed Fills: 1 Fills Dispensed: 0 Trelegy Ellipta 200 mcg-62.5 mcg-25 mcg/inh inhalation powder (7 sources) Start: 04-29-2024 Trelegy Ellipta 200 mcg-62.5 mcg-25 mcg/inh inhalation powder Dose = 1 inh, Inhalation, 12 (noon), 0 Refill(s) Start Date: 04/29/24 Status: Ordered Medication Dispense Status: Completed Total Allowed Fills: 1 Fills Dispensed: 0 Start: 04-29-2024 Trelegy Ellipt a 200 mcg-62.5 mcg-25 mcg/inh inhalation powder Dose = 1 inh, Inhalation, 12 (noon), 0 Refill(s) Start Date: 04/29/24 Status: Ordered Repeat number: 1 Start: 04-29-2024 Trelegy Ellipt a 200 mcg-62.5 mcg-25 mcg/inh inhalation powder Dose = 1 inh, Inhalation, 12 (noon), 0 Refill(s) Start Date: 04/29/24 Status: Ordered Completed/Discontinued Medications Medication Drug Class(es) Dates Sig (Normalized) Sig (Original) acetaminophen 325 mg / oxyCODONE hydrochloride 5 mg oral tablet (3 sources) Opioid Agonist Start: 01-19-2025 End: 01-19-2025 Oxycodone-Acetamino phen 5-325 mg tablet Discontinued 1 {tbl} PO EVERY 6 HOURS NEEDED as needed for pain January 19, 2025 12:00am January 19, 2025 1:07pm Start: 01-05-2025 End: 01-12-2025 take 1 tablet by mouth every six hours as needed for pain Percocet 5 mg-325 mg oral tablet Dose = 1 tab(s), Oral, q6h, PRN Pain, X 7 day(s), # 28 tab(s), 0 Refill(s), Pharmacy: [facility]/pharmacy #[id number], Post-op pain, 175.3, cm, 01/05/25 8:27:00 EDT, Height, 73, kg, 01/05/25 8:27:00 EDT, Dosing Weight Start Date: 01/05/25 Stop Date: 01/12/25 Status: Ordered Quantity: 28.0 Unit: tab(s) Repeat number: 1 Indications: Other acute postprocedural pain; Start: 08-19-2024 End: 08-26-2024 take 1 tablet by mouth every six hours Percocet 5 mg-325 mg oral tablet Dose = 1 tab(s), Oral, q6hr, X 7 day(s), # 28 tab(s), 0 Refill(s), Pharmacy: [facility]/pharmacy #[id number], Post-op pain, 175.3, cm, 08/18/24 18:49:00 EST, Height, 78.2, kg, 08/18/24 18:49:00 EST, Dosing Weight Start Date: 08/19/24 Stop Date: 08/26/24 Status: Ordered [id number] 200 actuat albuterol 0.09 mg/actuat metered dose inhaler (3 sources) beta2-Adrenergic Agonist Start: 02-16-2024 End: 12-25-2024 Albuterol Sulfate (Ventolin Hfa) 90 mcg/actuation HFA aerosol inhaler Discontinued 1 - 2 NMA INHALATION EVERY 4 HOURS NEEDED as needed for Wheezing 1 0 February 16, 2024 12:00am December 25, 2024 10:00am clonazePAM 0.5 mg oral tablet (3 sources) Benzodiazepine Start: 02-26-2024 End: 03-21-2024 Clonazepam 0.5 mg tablet Discontinued mg PO February 26, 2024 12:00am March 21, 2024 12:27pm mupirocin 0.02 mg/mg topical ointment (7 sources) RNA Synthetase Inhibitor Antibacterial Start: 12-22-2024 mupirocin 2% topical ointment Apply 1 lino, Topical, BID, Bilateral intranasal application twice daily for 5 days prior to surgery &/or as many days leading up to surgery as possible due to surgical urgency/scheduling. Send to patient's preferred pharmacy., Apply to: nostril, each, # 22 gram(s), 0 Refill(s), Pharmacy: [facility]/pharmacy #[id number], Ointment, 175, cm, 12/22/24 8:14:00 EDT, Height, 75.3, kg, 12/22/24 8:14:00 EDT, Dosing Weight Start Date: 12/22/24 Status: Ordered Medication Dispense Status: Completed Quantity: 22.0 Unit: g Total Allowed Fills: 1 Fills Dispensed: 0 Start: 08-04-2024 mupirocin 2% t opical ointment Apply 1 lino, Topical, BID, Bilateral intranasal application twice daily x 5 days pre-surgery &/or as many days pre-surgery as possible., Apply to: nostril, each, # 22 gram(s), 0 Refill(s), Pharmacy: [facility]/pharmacy #[id number], Ointment, 172, cm, 08/04/24 9:08:00 EST, Height, 81, kg, 08/04/24 9:08:00 EST, Dosing Weight Start Date: 08/04/24 Status: Ordered Quantity: 22.0 Unit: g Repeat number: 1 Oxygen (4 sources) Start: 12-22-2024 Oxygen Oxygen, 2 liters, Nasal, qHS, 0 Refill(s), 75.3 Start Date: 12/22/24 Status: Ordered Medication Dispense Status: Completed Total Allowed Fills: 1 Fills Dispensed: 0 Start: 12-22-2024 Oxygen Oxygen, 2 liters, Nasal, qHS, 0 Refill(s), 75.3 Start Date: 12/22/24 Status: Ordered Repeat number: 1 ticagrelor 90 mg oral tablet (9 sources) Start: 02-06-2024 End: 04-08-2024 take 1 tablet by mouth twice daily Ticagrelor 90 mg tablet Discontinued 90 mg PO TWICE A DAY 180 February 26, 2024 12:00am April 08, 2024 9:41am tiZANidine 2 mg oral tablet (5 sources) Central alpha-2 Adrenergic Agonist Start: 01-05-2025 End: 01-19-2025 tiZANidine 2 mg oral tablet Dose : 2 mg = 1 tab(s), Oral, q8h, PRN as needed for muscle spasm, # 42 cap(s), 0 Refill(s), Pharmacy: [facility]/pharmacy #[id number], 175.3, cm, 01/05/25 8:27:00 EDT, Height, kg, 01/05/25 8:27:00 EDT, Dosing Weight Start Date: 01/05/25 Stop Date: 01/19/25 Status: Ordered Medication Dispense Status: Completed Quantity: 42.0 Unit: cap(s) Total Allowed Fills: 1 Fills Dispensed: 0 Start: 08-19-2024 End: 09-02-2024 tiZANidine 2 mg oral capsule Dose : 2 mg = 1 cap(s), Oral, q8h, # 42 cap(s), 0 Refill(s), Pharmacy: [facility]/pharmacy #[id number], 175.3, cm, 08/18/24 18:49:00 EST, Height, kg, 08/18/24 18:49:00 EST, Dosing Weight Start Date: 08/19/24 Stop Date: 09/02/24 Status: Ordered Quantity: 42.0 Unit: cap(s) Repeat number: 1 Problems Active Problems Problem Classification Problem Date Documented Date Episodic/Chronic Acute cerebrovascular disease (9 sources) Cerebrovascular accident; Translations: [Cerebral infarction, unspecified] 10-25-2023 Chronic Acute myocardial infarction (10 sources) Myocardial infarction; Translations: [ST elevation (STEMI) myocardial infarction involving right coronary artery] Onset: 4 04-24-2015 Chronic Cardiac dysrhythmias (12 sources) Atrial fibrillation; Translations: [Unspecified atrial fibrillation] Onset: 5 12-25-2024 Chronic Chronic obstructive pulmonary disease and bronchiectasis (20 sources) Chronic obstructive lung disease; Translations: [Chronic obstructive pulmonary disease, unspecified] Onset: 5 10-12-2023 Chronic Comment on above: FEV1 60% Complications of surgical procedures or medical care (15 sources) Iatrogenic pneumothorax; Translations: [Postprocedural pneumothorax] 10-12-2023 Episodic Coronary atherosclerosis and other heart disease (11 sources) History of myocardial infarction; Translations: [Old myocardial infarction] Onset: 5 03-29-2024 Chronic Comment on above: Stent to the right c oronary as part of his STEMI revascularization 02/05/2024 Disorders of lipid metabolism (7 sources) Dyslipidemia; Translations: [Hyperlipidemia, unspecified] Onset: 5 02-26-2024 Chronic Comment on above: LDL was 83, HDL 40 t otal cholesterol 143, and triglycerides 100 02/05/2024 Esophageal disorders (12 sources) Gastroesophageal reflux disease; Translations: [Gastro-esophageal reflux disease without esophagitis] 10-12-2023 Chronic Essential hypertension (3 sources) Hypertensive disorder; Translations: [Essential (primary) hypertension] 02-26-2024 Chronic Comment on above: Well-controlled in t he office today Other aftercare (5 sources) Follow-up status 09-09-2024 Episodic Other circulatory disease (3 sources) Low blood pressure; Translations: [Hypotension, unspecified] 10-29-2024 Episodic Other congenital anomalies (7 sources) Congenital fusion of spine 09-27-2023 Chronic Other connective tissue disease (1 source) Unspecified symptoms and signs involving the nervous system; Translations: [Stroke-like symptoms] Onset: 4 Episodic Other connective tissue disease (3 sources) Other symptoms and signs involving the musculoskeletal system; Translations: [Other musculoskeletal symptoms referable to limbs] Onset: 4 11-12-2023 Episodic Other connective tissue disease (1 source) Repeated falls; Translations: [Recurrent falls] Onset: 4 Episodic Other connective tissue disease (1 source) Neurological symptom; Translations: [Unspecified symptoms and signs involving the nervous system] 11-12-2023 Episodic Other connective tissue disease (2 sources) Recurrent falls ; Translations: [Repeated falls] 11-12-2023 Episodic Other connective tissue disease (1 source) Paraparesis; Translations: [Other symptoms and signs involving the musculoskeletal system] 01-27-2025 Episodic Other connective tissue disease (1 source) History of cervical spine fusion; Translations: [Arthrodesis status] 01-27-2025 Episodic Other lower respiratory disease (11 sources) Nodule of lung; Translations: [Solitary pulmonary nodule] 09-26-2023 Episodic Other lower respiratory disease (15 sources) Solitary pulmonary nodule; Translations: [Solitary pulmonary nodule] 09-26-2023 Episodic Other lower respiratory disease (3 sources) Other forms of dyspnea; Translations: [Chronic dyspnea] 03-29-2024 Episodic Other lower respiratory disease (6 sources) Dyspnea; Translations: [Shortness of breath] 03-25-2024 Episodic Other lower respiratory disease (4 sources) Hypoxia; Translations: [Hypoxemia] 05-06-2024 Episodic Comment on above: 2 LPM with sleep Other nervous system disorders (7 sources) Myelomalacia 11-29-2023 Chronic Other nervous system disorders (1 source) Postoperative pain ; Translations: [Other acute postprocedural pain] Onset: 4 Episodic Other nervous system disorders (1 source) Other acute postprocedural pain; Translations: [Other acute postprocedural pain] Onset: 5 Episodic Other screening for suspected conditions (not mental disorders or infectious disease) (1 source) Encounter for screening for malignant neoplasm of respiratory organs; Translations: [Encounter for screening for malignant neoplasm of respiratory organs] Onset: 5 Episodic Residual codes; unclassified (1 source) History of surgical procedure on cervical spine; Translations: [Other specified postprocedural states] 03-24-2025 Episodic Comment on above: 12/2024 @ Juan Respiratory failure; insufficiency; arrest (adult) (1 source) Chronic respiratory failure with hypoxia; Translations: [Chronic respiratory failure with hypoxia] Onset: 5 Chronic Spondylosis; intervertebral disc disorders; other back problems (8 sources) Cervical spondylosis; Translations: [Other spondylosis with myelopathy, cervical region] Onset: 4 09-27-2023 Chronic Spondylosis; intervertebral disc disorders; other back problems (20 sources) Spinal stenosis, cervical region; Translations: [Spinal stenosis, lumbar region without neurogenic claudication] Onset: 4 11-20-2023 Episodic Substance-related disorders (20 sources) Nicotine dependence; Translations: [Nicotine dependence, cigarettes, uncomplicated] Onset: 5 09-26-2023 Chronic Unclassified (7 sources) Displacement of lumbar intervertebral disc 09-20-2023 Unclassified (5 sources) History of cervical spine fusion 09-09-2024 Past or Other Problems Problem Classification Problem Date Documented Date Episodic/Chronic Coronary atherosclerosis and other heart disease (11 sources) Stented coronary artery; Translations: [Presence of coronary angioplasty implant and graft] Onset: 4 04-24-2015 Episodic Comment on above: Aspiration thrombect elo was performed to the proximal RCA. After jew of flow, it was noted that the whole vessel from the proximal to the distal part extending into the right posterior lateral ventricular branch was severely diseased. The distal RCA was treated into the proximal right posterior lateral ventricular branch using 2.5 x 38 mm and 2.5 x 8 mm stents. The proximal to mid RCA was treated using 3.0 x 38 mm and 3.5 x 22 mm stents. There was suspicion for stent strut fracture in the 2.5 x 38 mm stent. This was successfully treated using a 3.0 x 8 mm stent. x6 Malaise and fatigue (9 sources) Weakness; Translations: [Left hemiparesis] Onset: 4 11-12-2023 Episodic Nonspecific chest pain (2 sources) Chest pain, unspecified; Translations: [Chest pain, unspecified] Onset: 5 Episodic Other circulatory disease (1 source) Hypotension, unspecified; Translations: [Hypotension, unspecified] Onset: 5 Episodic Other gastrointestinal disorders (1 source) Dysphagia, pharyngoesophageal phase; Translations: [Dysphagia, pharyngoesophageal phase] Onset: 5 Episodic Urinary tract infections (1 source) Urinary tract infection, site not specified; Translations: [Urinary tract infection, site not specified] Onset: 5 Episodic Results Test Name Value Interpretation Reference Range Facility Cardiology Visit Reporton Cardiology Visit Report [facility] [address] [place] [address] OFFICE VISIT Date of Service: 08/04/25 MR#: [id number] Acct: [id number] Name: SARTHAK PUTNAM Jr. Rep #: [id number] : 1955 Provider: JORGE meeks Age/Sex: 70/M Location: [facility] Status: Signed HPI HPI History of Present Illness Details: Patient is a 70-year-old white male who comes in today for a cardiovascular follow-up visit. He was noted to be in atrial fibrillation on his pre-op EKG on 12/22/2024. The patient is status post stenting of his right coronary artery February 05, 2024 when he presented with an inferior wall infarct. His presenting symptom was a feeling of hot air when he breathes to end. He had previously had an infarct in the same artery distribution he presented with an indigestion type sensation. The patient denies either one of the symptoms at this point in time. 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 His LV function is known to be normal with an ejection fraction of 60% by echocardiogram prior to discharge. His ejection fraction was 40-45% at the time of his emergent left heart catheterization January 2024. He underwent a stress test on 12/30/2024 after developing atrial fibrillation. This was negative. He recently underwent surgery on his cervical spine, by Dr. Mando Fischer. He was started on Eliquis 5mg twice daily after surgery. His 14 day event monitor demonstrated 2% atrial fibrillation. From a cardiac standpoint, the patient is doing well. He denies any palpitations, chest pain, pressure or heaviness. He denies SOB, Orthopnea, and PND. He does not have bleeding issues; no blood in urine, stool, or nosebleeds. He does acknowledge chronic fatigue. He denies myalgias, or claudication. He does not have edema, or sudden weight gain. He does acknowledge occasional lightheadedness with quick positional changes. He denies dizziness, syncopal or near syncopal episodes, and headaches. Intake Vital Signs 01/26/25 07:29 03/24/25 09:12 08/04/25 07:30 Height 5 ft 9 in 5 ft 9 in 5 ft 9 in Weight: 168 lb BMI 24.7 BP 115/80 Blood Pressure Location Lt brachial Position Sitting Respiration 18 Pulse 129 H Pulse Source Monitor Pulse Oximetry (%) 93 Intake Visit Reasons: 6 M Toddler Lead Teacher Required: No Is patient in pain?: No Allergies No Known Allergies Allergy (Verified 08/04/25 14:00) Medications ???Medication ???Instructions ???Recorded ???Confirmed ???Type pantoprazole 40 mg tablet,delayed 40 mg PO DAILY GERD 09/26/2307/25 History release atorvastatin 80 mg tablet 80 mg PO QHS 30 days #30 tabs 01/2208/04/25 Rx buspirone 7.5 mg tablet 7.5 mg PO BID 03/21/24 08/04/25 Hi story apixaban 5 mg tablet (Eliquis) 5 mg PO BID Atrial Fibrillation 08/04/25 Rx #60 tabs acetaminophen 500 mg capsule 500 mg PO Q6H PRN pain 01/19/25 History fluticasone fur. 200 mcg-umeclid 1 ea inhalation QDAY #1 ea 5 08/04/25 Rx 62.5 mcg-vilant 25 mcg inhalat.powder (Trelegy Ellipta) metoprolol succinate 25 mg 12.5 mg (1/2 x 25 mg) PO QDAY #15 08/04/25 08/04/25 Rx tablet,extended release 24 hr tabs Ejection fraction %: 60 Have you fallen in the past year?: Yes PFSH Medical History (Reviewed 08/04/25 @ 13:56 by Azucena Cai SEMICONDUCTOR EQUIPMENT TECHNICIAN, SEMICONDUCTOR EQUIPMENT TECHNICIAN-C) Dyslipidemia ST elevation (STEMI) myocardial infarction involving right coronary artery ( 02/04/24) GERD (gastroesophageal reflux disease) COPD (chronic obstructive pulmonary disease) Nicotine dependence, cigarettes, uncomplicated Lung nodule Surgical History (Reviewed 08/04/25 @ 13:56 by Azucena Cai SEMICONDUCTOR EQUIPMENT TECHNICIAN, SEMICONDUCTOR EQUIPMENT TECHNICIAN-C) H/O cervical spine surgery Stented coronary artery (02/05/24) Social History (Reviewed 08/04/25 @ 13:56 by Azucena Cai SEMICONDUCTOR EQUIPMENT TECHNICIAN, SEMICONDUCTOR EQUIPMENT TECHNICIAN-C) Smoking Status: Former smoker Tobacco: How many years used: 60 second hand exposure: Yes alcohol intake: never substance use type: does not use ROS Const Const: Positive for fatigue; Negative for weakness, headache(s) or frequent falls Eyes Eyes: Negative for blurry vision ENT ENT: Negative for headache(s), dizziness or Nosebleed/epistaxis Cardio Chest Pain: No Palpitations: No Edema: None Muscle aches with walking: None Resp Respiratory: Negative for SOB with activity, SOB at rest or SOB orthopnea SOB lying down GI GI: Negative nausea, vomiting, heartburn, bright, red blood in stools or black,tarry stools : Negative for hematuria Neuro Neuro: Positive for lightheadedness; Negative for dizziness, near syncope, syncope, frequent falls, headache(s), weakness or blurry vision Endo Endo: Positive for fatigue Cardiology Exam Const Appearance: cooperative, comfortable, no acute distr (more content not included)... Normal [facility] Low Dose CT Lung Screeningon 07-27-[address] Lung Screening [facility] Services [address] [place] [address] Lung Screening MR#: [id number] Acct: [id number] Name: SARTHAK PUTNAM Jr. Rep #: [id number] : 1955 M 70 From: Erasto Patel MD PCP: Dr. Scott Mejia MD Status: REG CLI Study: Low Dose CT Lung Screening Date of Exam: 07/27 Exam# [id number] Ordering Dr: Dayami Montes De Oca NP SEMICONDUCTOR EQUIPMENT TECHNICIAN-C PROCEDURE: LOW DOSE CT LUNG SCREENING 07/27/2025 REASON FOR EXAM: HISTORY OF SMOKING 1-1/2 pack per day smoker times 60 years, quit 1 year ago TECHNIQUE: Procedure Code: CTLUNGSCREEN Modality: CT Procedure: LOW DOSE CT LUNG SCREENING Coronal and Sagittal reconstruction series were provided. One or more dose reduction techniques were used (e.g., Automated exposure control, adjustment of the mA and/or kV according to patient size, use of iterative reconstruction technique). REFERENCE LINK: [employer] Lung-RADS RADIATION DOSE SUMMARY: CTDlvol: 2.39 mGy DLP: 80.71 mGycm COMPARISON: None FINDINGS: PULMONARY NODULES: (Only nodules >3mm are reported) Lung windows show underlying emphysema with bleb formation in both upper lung [place] and there is pleural thickening in the left apex with a 1.5 cm fibrotic scar. No organized infiltrate or effusion. Dependent atelectasis noted in both lung bases. No suspicious noncalcified mass or nodule Limited soft tissue windows show a normal-appearing thyroid gland. No suspicious axillary, mediastinal or perihilar adenopathy. The thoracic aorta tapers normally. There are calcified coronary vessels. Limited cuts through the upper abdomen do not show a suspicious abnormality. Bony structures show degenerative change CT/Low Dose CT Lung Screening IMPRESSION: Underlying emphysema with nonspecific pleural thickening in both apices and fibrotic scar in the left upper lobe. No organized infiltrate or effusion. Chronic interstitial changes noted in both lung [place] without a suspicious noncalcified mass or nodule Coronary artery calcification (CAC) is is present Lung-RADS Category: 2 BENIGN (BASED ON IMAGING FEATURES OR INDOLENT BEHAVIOR). RECOMMEND 12-MONTH SCREENING LDCT. Other Significant Findings: Reading Location: [address] CC: JORGE Montes De Oca; Dr. Scott Mejia MD Pie Filling Mixer: Signed Normal [facility] Pulmonary Visit Reporton Pulmonary Visit Report [facility] of [address] [place] [address] OFFICE VISIT Date of Service: 03/24/25 MR#: [id number] Acct: [id number] Name: SARTHAK PUTNAM Jr. Rep #: [id number] : 1955 Provider: JORGE Montes De Oca Age/Sex: 69/M Location: [facility] Status: Signed Assessment and Plan Assessment and Plan (1) COPD (chronic obstructive pulmonary disease): Status: Chronic Qualifiers: COPD type: emphysema Emphysema type: centrilobular Qualified Code(s): J43.2 - Centrilobular emphysema Comment: FEV1 60% Plan: Stable. He does not appear to be an exacerbation of COPD today. No need for prednisone or antibiotic. Continue current maintenance medication, symptomatically controlled on triple therapy with use of Trelegy. I reassured him, that he can take Mucinex 1200 mg twice daily as needed to thin secretions. No additional testing at this time. Contact the office for any new or worsening symptoms. An acute visit and typically be arranged within 1-2 days. Follow-up in August. (2) Lung nodule: Status: Chronic Plan: Continue surveillance unless high risk patient by repeating a diagnostic CT of the chest in July. Follow-up in the office in August to discuss results. (3) Hypoxia: Status: Chronic Comment: 2 LPM with sleep Plan: He is using and benefitting from oxygen. No additional testing. Follow up in August. Orders: Orders Low Dose CT Lung Screening 07/25/25 F17.200 - Nicotine dependence, unspecified, uncomplicated, F17.210 - Nicotine dependence, cigarettes, uncomplicated, R91.1 - Solitary pulmonary nodule Plan Details Additional Comments: This note was generated with [employer] dictation software. It may contain incorrect words, spelling, and punctuation that were not noted in checking the note before signing. Follow Up: 08/24/25 HPI HPI Comments Details: This patient presents to the office today to discuss test results. He is ambulatory, on room air and accompanied today by his . He has not recently been seen in the ED or urgent care for any respiratory illness. He has not required any antibiotics or prednisone for any breathing problems. He continues complete smoking cessation since December 2023. He is compliant with use of Trelegy 1 puff daily. He does report rinsing his mouth out after each use. He denies any medication side effect such as sore throat or thrush. He has not recently used his albuterol rescue inhaler. He continues to have shortness of breath on exertion. He does have a daily cough that is productive of clear to pale yellow-colored sputum. He denies any hemoptysis. He has occasional wheezing but denies any chest tightness, chest pain or palpitations. He also denies any fever, chills or body aches. He is compliant with 2 LPM of oxygen with sleep. He checks his pulse ox at home and it is usually 92-93% on room air at rest. Intake Vital Signs 01/26/25 07:29 03/24/25 09:12 Height 5 ft 9 in 5 ft 9 in Weight: 165 lb 159 lb BMI 24.3 23.4 BP 101/72 87/66 L Blood Pressure Location Lt brachial Lt brachial Position Sitting Sitting Respiration 18 18 Pulse 91 66 Pulse Source Monitor Monitor Temp 97.9 F Temperature Source Temporal Artery Pulse Oximetry (%) 93 95 Oxygen Delivery Method room air Intake Visit Reasons: 4 M FU Chief Complaint: SOB Toddler Lead Teacher Required: No DME Vendor: Alfredo Accompanied by: Allergies No Known Allergies Allergy (Verified 03/24/25 14:13) Medications ???Medication ???Instructions ???Recorded ???Confirmed ???Type pantoprazole 40 mg tablet,delayed 40 mg PO DAILY GERD 09/26/2310/18 History release atorvastatin 80 mg tablet 80 mg PO QHS 30 days #30 tabs 01/2203/24/25 Rx buspirone 7.5 mg tablet 7.5 mg PO BID 03/21/24 03/24/25 Hi story mirtazapine 30 mg tablet 30 mg PO QHS 03/25/24 03/24/25 His tory clopidogrel 75 mg tablet (Plavix) 75 mg PO DAILY #93 tabs 04/08/24 03/24/25 Rx fluticasone fur. 200 mcg-umeclid 1 ea inhalation QDAY #1 ea 05/06/ 4 03/24/25 Rx 62.5 mcg-vilant 25 mcg inhalat.powder (Trelegy Ellipta) apixaban 5 mg tablet (Eliquis) 5 mg PO BID Atrial Fibrillation 03/24/25 Rx #60 tabs acetaminophen 500 mg capsule 500 mg PO Q6H PRN pain 01/19/25 History gabapentin 300 mg capsule 300 mg PO QHS 01/19/25 03/24/25 Hi story Have you [facility] in the past year?: [facility] History (Reviewed 03/24/25 @ 14:28 by Dayami Montes De Oca SEMICONDUCTOR EQUIPMENT TECHNICIAN, PATRICEC) Dyslipidemia ST elevation (STEMI) myocardial infarction involving right coronary artery ( 02/04/24) GERD (gastroesophageal reflux disease) COPD (chronic obstructive pulmonary disease) Nicotine dependence, cigarettes, uncomplicated Lung nodule Surgical History (Reviewed (more content not included)... Normal [facility] Cardiology Visit Reporton Cardiology Visit Report [facility] [address] [place] [address] OFFICE VISIT Date of Service: 01/26/25 MR#: [id number] Acct: [id number] Name: SARTHAK PUTNAM JrCarlos Rep #: [id number] : 1955 Provider: JORGE meeks Age/Sex: 69/M Location: [facility] Status: Signed HPI HPI History of Present Illness Details: Patient is a 69-year-old white male who comes in today for a cardiovascular follow-up visit. He was noted to be in atrial fibrillation on his pre-op EKG on 12/22/2024. The patient is status post stenting of his right coronary artery February 05, 2024 when he presented with an inferior wall infarct. His presenting symptom was a feeling of hot air when he breathes to end. He had previously had an infarct in the same artery distribution he presented with an indigestion type sensation. The patient denies either one of the symptoms at this point in time. 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 His LV function is known to be normal with an ejection fraction of 60% by echocardiogram prior to discharge. His ejection fraction was 40-45% at the time of his emergent left heart catheterization January 2024. He underwent a stress test on 12/30/2024 after developing atrial fibrillation. This was negative. He recently underwent surgery on his cervical spine, by Dr. Mando Fischer. He was started on Eliquis 5mg twice daily after surgery. His 14 day event monitor demonstrated 2% atrial fibrillation. From a cardiac standpoint, the patient is doing well.He presents to the office in a wheel chair. He denies any palpitations, chest pain, pressure or heaviness. He does have occasional SOB with walking longer distances. He denies Orthopnea, and PND. He does not have bleeding issues; no blood in urine, stool, or nosebleeds. He denies any decrease in energy level, myalgias, or claudication. He does not have edema, or sudden weight gain. He does have occasional lightheadedness with quick positional changes. He denies dizziness, syncopal or near syncopal episodes, and headaches. Intake Vital Signs 12/25/24 07:40 01/26/25 07:29 Height 5 ft 9 in 5 ft 9 in Weight: 165 lb BMI 24.3 BP 101/72 Blood Pressure Location Lt brachial Position Sitting Respiration 18 Pulse 91 Pulse Source Monitor Pulse Oximetry (%) 93 Intake Visit Reasons: 1 M FU Toddler Lead Teacher Required: No Is patient in pain?: No Allergies No Known Allergies Allergy (Verified 01/26/25 13:07) Medications ???Medication ???Instructions ???Recorded ???Confirmed ???Type pantoprazole 40 mg tablet,delayed 40 mg PO DAILY GERD 09/26/2302/15 History release atorvastatin 80 mg tablet 80 mg PO QHS 30 days #30 tabs 01/2201/26/25 Rx buspirone 7.5 mg tablet 7.5 mg PO BID 03/21/24 01/26/25 Hi story mirtazapine 30 mg tablet 30 mg PO QHS 03/25/24 01/26/25 His tory clopidogrel 75 mg tablet (Plavix) 75 mg PO DAILY #93 tabs 04/08/24 01/26/25 Rx fluticasone fur. 200 mcg-umeclid 1 ea inhalation QDAY #1 ea 4 01/26/25 Rx 62.5 mcg-vilant 25 mcg inhalat.powder (Trelegy Ellipta) apixaban 5 mg tablet (Eliquis) 5 mg PO BID Atrial Fibrillation 01/26/25 Rx #60 tabs acetaminophen 500 mg capsule 500 mg PO Q6H PRN pain 01/19/25 History gabapentin 300 mg capsule 300 mg PO QHS 01/19/25 01/26/25 Hi story quetiapine 25 mg tablet 25 mg PO QHS 01/19/25 01/26/25 His tory Ejection fraction %: 60 Have you fallen in the past year?: Yes [facility] Medical History (Reviewed 01/26/25 @ 13:25 by Azucena Cai SEMICONDUCTOR EQUIPMENT TECHNICIAN, SEMICONDUCTOR EQUIPMENT TECHNICIAN-C) Dyslipidemia ST elevation (STEMI) myocardial infarction involving right coronary artery ( 02/04/24) GERD (gastroesophageal reflux disease) COPD (chronic obstructive pulmonary disease) Nicotine dependence, cigarettes, uncomplicated Lung nodule Surgical History (Reviewed 01/26/25 @ 13:25 by Azucena Cai SEMICONDUCTOR EQUIPMENT TECHNICIAN, SEMICONDUCTOR EQUIPMENT TECHNICIAN-C) Stented coronary artery (02/05/24) Social History (Reviewed 01/26/25 @ 13:25 by Azucena Cai SEMICONDUCTOR EQUIPMENT TECHNICIAN, SEMICONDUCTOR EQUIPMENT TECHNICIAN-C) Smoking Status: Former smoker Tobacco: How many years used: 60 second hand exposure: Yes alcohol intake: never substance use type: does not use ROS Const Const: Positive for weakness; Negative for fatigue, headache(s) or frequent falls Eyes Eyes: Negative for blurry vision ENT ENT: Negative for headache(s), dizziness or Nosebleed/epistaxis Cardio Chest Pain: No Palpitations: No Edema: None Muscle aches with walking: None Resp Respiratory: Negative for SOB with activity, SOB at rest or SOB orthopnea SOB lying down GI GI: Negative nausea, vomiting, heartburn, bright, red blood in stools or black,tarry stools : Negative for hematuria Neuro Neuro: Positive for lightheadedness (occasional with quick positi (more content not included)... Normal [facility] 12 Lead EKGon 01-19-2025 12 Lead EKG [facility] Services [address] [place] [address] 12 Lead EKG 01/19/25 1157 MR#: [id number] Acct: [id number] Name: SARTHAK PUTNAM Jr. Rep #: [id number] : 1955 69 From: Delia Mathur MD Attending Dr: Status: DEP ER Ordering Dr: Frances Nova Date: 01/19/25 Location: ED Sex: M C Admitted: Test Reason : WEAKNESS Blood Pressure : */* mmHG Vent. Rate : 90 BPM Atrial Rate : 90 BPM P-R Int : 134 ms QRS Dur : 72 ms QT Int : 338 ms P-R-T Axes : 84 24 55 degrees QTcB Int : 413 ms Normal sinus rhythm Normal ECG Confirmed by GAUDENCIO CASAS, BEAN ([id number]), purchasing expeditor JESSICA FERNANDO ([id number]) on 01/21/2025 11:46:38 AM Referred By: Confirmed By: BEAN MATHUR MD 01/21/25 1146 Date Delia Mathur MD CC: Dr. Scott Mejia MD; Dr. Lucius Ramesh DO; ANN Stallworth Signed Normal [facility] Absolute lymphocyte countOrd ered By: Frances Nova on 01-19-2025 Lymphocytes Auto (Unsp spec) [#/Vol] 0.98 10*3/uL 0.83-4.51 [facility] Absolute neutrophil countOrd ered By: Frances Nova on 01-19-2025 Neutrophils (Bld) [#/Vol] 6.5 10*3/uL 2.0-7.7 [facility] Anion gap in Serum or Plasma Ordered By: Frances Nova on 01-19-2025 Anion gap [Moles/Vol] 12 mmol/L 5- [facility] Automated lymphocyte count a s percentage of total leukocytesOrdered By: Frances Nova on 01-19-2025 Lymphocytes/100 WBC Auto (Unsp spec) 12.2 % Low 19- [facility] BUN/creatinine ratioOrdered By: Frances Nova on 01-19-2025 Urea nitrogen/Creatinine [Mass ratio] 12.1 mg/mg 07-13 [facility] Basic Metabolic Profile (BMP )on 01-19-2025 BUN/CRE 12.1 RATIO Normal 07-13 [facility] Comment on above: Performed By: #### L 100.0100, L500.2500, L501.4021 #### [facility] [place], [address] Calcium [Mass/Vol] 9.1 mg/dL Normal 7.6-11.0 [facility] Comment on above: Performed By: #### L 100.0100, L500.2500, L501.4021 #### [facility] [address] [place], [address] Chloride [Moles/Vol] 102 mmol/L Normal 98-108 [facility] Comment on above: Performed By: #### L 100.0100, L500.2500, L501.4021 #### [facility] [address] [place], [address] CO2 [Moles/Vol] 25.7 mmol/L Normal 21.0-32.0 [facility] Comment on above: Performed By: #### L 100.0100, L500.2500, L501.4021 #### [facility] [address] [place], [address] Creatinine [Mass/Vol] 0.87 mg/dL Normal 0.70-1.20 [facility] Comment on above: Performed By: #### L 100.0100, L500.2500, L501.4021 #### [facility] [address] [place], [address] ECRCL 79.01 ml/min Normal 50-250 [facility] Comment on above: Performed By: #### L 100.0100, L500.2500, L501.4021 #### [facility] [address] [place], [address] GAP 12 Normal 5-15 [facility] Comment on above: Performed By: #### L 100.0100, L500.2500, L501.4021 #### [facility] [address] [place], [address] GFR/1.73 sq M.predicted among non-blacks MDRD (S/P/Bld) [Vol rate/Area] 93 mL/min/{1.73_m2} Normal >60 [facility] Comment on above: Result Comment: mL/m in/1.73m2 CKD-EPI Creatinine Equation (2020) Performed By: #### L 100.0100, L500.2500, L501.4021 #### [facility] [address] [place], [address] Glucose [Mass/Vol] 118 mg/dL High 70-99 [facility] Comment on above: Performed By: #### L 100.0100, L500.2500, L501.4021 #### [facility] [address] [place], [address] Potassium [Moles/Vol] 3.7 mmol/L Normal 3.3-5.1 [facility] Comment on above: Result Comment: Hemo lysis present, Results??could be affected. ?? Performed By: #### L 100.0100, L500.2500, L501.4021 #### [facility] [address] [place], [address] Sodium [Moles/Vol] 141 mmol/L Normal 133-145 [facility] Comment on above: Performed By: #### L 100.0100, L500.2500, L501.4021 #### [facility] [address] [place], [address] Urea nitrogen [Mass/Vol] 11 mg/dL Normal 4-19 [facility] Comment on above: Performed By: #### L 100.0100, L500.2500, L501.4021 #### [facility] [address] [place], [address] Basophil percentageOrdered B y: Frances Nova on 01-19-2025 Basophils/100 WBC (Bld) 0.2 % 0-1 [facility] Bilirubin Test strip Ql (U)O rdered By: Frances Nova on 01-19-2025 Bilirubin Ql (U) Negative Negative [facility] CBC W/Diff, Automatedon 04-2 Absolute Lymph 0.98 X10 3/uL Normal 0.83-4.51 [facility] Comment on above: Performed By: #### L 100.0100, L500.2500, L501.4021 #### [facility] [address] [place], [address] Absolute Neut 6.5 X10 3/uL Normal 2.0-7.7 [facility] Comment on above: Performed By: #### L 100.0100, L500.2500, L501.4021 #### [facility] [address] [place], [address] Basophils/100 WBC (Bld) 0.2 % Normal 0-1 [facility] Comment on above: Performed By: #### L 100.0100, L500.2500, L501.4021 #### [facility] [address] [place], [address] Eosinophils/100 WBC (Bld) 0.6 % Normal 0-5 [facility] Comment on above: Performed By: #### L 100.0100, L500.2500, L501.4021 #### [facility] [address] [place], [address] Erythrocyte distribution width (RBC) [Ratio] 13.2 % Normal 11.6-14.6 [facility] Comment on above: Performed By: #### L 100.0100, L500.2500, L501.4021 #### [facility] [address] [place], [address] Hematocrit (Bld) [Volume fraction] 38.8 % Low 40-54 [facility] Comment on above: Performed By: #### L 100.0100, L500.2500, L501.4021 #### [facility] [address] [place], [address] Hemoglobin (Bld) [Mass/Vol] 12.6 g/dL Low 13.0-16.5 [facility] Comment on above: Performed By: #### L 100.0100, L500.2500, L501.4021 #### [facility] [address] [place], [address] IG% 1.100 High 0.0-0.9 [facility] Comment on above: Result Comment: IG% - Immature Granulocytes (promyelocytes, myelocytes and metamyelocytes) > 1% indicates that a LEFT SHIFT is Present. Performed By: #### L 100.0100, L500.2500, L501.4021 #### [facility] [address] [place], [address] Lymphocytes/100 WBC (Bld) 12.2 % Low 19-41 [facility] Comment on above: Performed By: #### L 100.0100, L500.2500, L501.4021 #### [facility] [address] [place], [address] MCH (RBC) [Entitic mass] 31.8 pg Normal 27.0-32.0 [facility] Comment on above: Performed By: #### L 100.0100, L500.2500, L501.4021 #### [facility] [address] [place], [address] MCHC (RBC) [Mass/Vol] 32.5 g/dL Normal 32-36 [facility] Comment on above: Performed By: #### L 100.0100, L500.2500, L501.4021 #### [facility] [address] [place], [address] MCV (RBC) [Entitic vol] 98.0 fL High 80-94 [facility] Comment on above: Performed By: #### L 100.0100, L500.2500, L501.4021 #### [facility] [address] [place], [address] Monocytes/100 WBC (Bld) 5.6 % Normal 0-10 [facility] Comment on above: Performed By: #### L 100.0100, L500.2500, L501.4021 #### [facility] [address] [place], [address] Neutrophils/100 WBC (Bld) 80.3 % High 47-70 [facility] Comment on above: Performed By: #### L 100.0100, L500.2500, L501.4021 #### [facility] [address] [place], [address] Nucleated RBC (Bld) [#/Vol] 0 10*3/uL Normal 0-5 [facility] Comment on above: Performed By: #### L 100.0100, L500.2500, L501.4021 #### [facility] [address] [place], [address] Platelet mean volume (Bld) [Entitic vol] 8.6 fL Normal 6.2-12.0 [facility] Comment on above: Performed By: #### L 100.0100, L500.2500, L501.4021 #### [facility] [address] [place], [address] Platelets (Bld) [#/Vol] 400 10*3/uL Normal 150-450 [facility] Comment on above: Performed By: #### L 100.0100, L500.2500, L501.4021 #### [facility] [address] [place], [address] RBC (Bld) [#/Vol] 3.96 10*6/uL Low 4.6-6.2 [facility] Comment on above: Performed By: #### L 100.0100, L500.2500, L501.4021 #### [facility] [address] [place], [address] RDW SD 47.4 fl High 35.1-43.9 [facility] Comment on above: Performed By: #### L 100.0100, L500.2500, L501.4021 #### [facility] [address] [place], [address] WBC (Bld) [#/Vol] 8.0 10*3/uL Normal 4.4-11.0 [facility] Comment on above: Performed By: #### L 100.0100, L500.2500, L501.4021 #### [facility] [address] [place], [address] CT HEAD OR BRAIN W/O CONTRAS Ton 01-19-2025 CT HEAD OR BRAIN W/O CONTRAST ORIGINAL EXAMINATION: CT OF THE HEAD WITHOUT CONTRAST 01/19/2025 6:42 pm TECHNIQUE: CT of the head was performed without the administration of intravenous contrast. Automated exposure control, iterative reconstruction, and/or weight based adjustment of the mA/kV was utilized to reduce the radiation dose to as low as reasonably achievable. COMPARISON: None. HISTORY: ORDERING SYSTEM PROVIDED HISTORY: Reason for Exam: FELL DENIES HITTING HEAD. HX OF STROKE. ON THINNERS pain FINDINGS: BRAIN/VENTRICLES: There is no acute intracranial hemorrhage, mass effect or midline shift. No abnormal extra-axial fluid collection. The ayers-white differentiation is maintained without evidence of an acute infarct. There is no evidence of hydrocephalus. ORBITS: The visualized portion of the orbits demonstrate no acute abnormality. SINUSES: Underpneumatized right mastoid air cells. The visualized paranasal sinuses and mastoid air cells demonstrate no acute abnormality. SOFT TISSUES/SKULL: No acute abnormality of the visualized skull or soft tissues. IMPRESSION: No acute intracranial abnormality. Interpreted by: Elie Fuentes Preliminary Report By: Elie Fuentes Electronically signed By Elie Fuentes Dictated Date: 01/19/2025 7:06:12 PM Prelim Date: 01/19/2025 7:08:23 PM Sign Date: 01/19/2025 7:08:23 PM Ordering Provider: OFELIA MYRICK Normal [facility] CVFLURVon 04-28-2025 FLU A PCR Negative Normal Negative [facility] Comment on above: Result Comment: [place] [id number] Performed By: #### C VFLURV #### [facility] [address] [place] [address] FLU B PCR Negative Normal Negative [facility] Comment on above: Result Comment: [place] [id number] Performed By: #### C VFLURV #### [facility] [address] [place] [address] RSV PCR Negative Normal Negative [facility] Comment on above: Result Comment: [place] [id number] Performed By: #### C VFLURV #### [facility] [address] [place] [address] SARS-CoV-2 (COVID-19) RNA SHAAN+probe Ql (Unsp spec) Negative Normal Negative [facility] Comment on above: Result Comment: [place] [id number] This test has been authorized by FDA under an EUA for use by authorized laboratories and has not been FDA cleared or approved. Results from the Xpert Xpress SARS-CoV-2/Flu/RSV or Xpert Xpress SARS-CoV-2 only test should be correlated with the clinical history, epidemiological data, and other data available to the clinician evaluating the patient. Performance of the Xpert Xpress SARS-CoV-2/Flu/RSV or Xpert Xpress SARS-CoV-2 only test has only been established in nasopharyngeal swab specimens. Erroneous test results might occur from improper specimen collection; failure to follow the recommended sample collection, handling, and storage procedures; technical error; or sample mix-up.False negative results may occur if virus is present at levels below the analytical limit of detection. Viral nucleic acid may persist in vivo, independent of virus viability. Detection of analyte target(s) does not imply that the corresponding virus(es) are infectious or are the causative agents for clinical symptoms.Recent patient exposure to FluMist or other live attenuated influenza vaccines may cause inaccurate positive results. Performed By: #### C VFLURV #### [facility] [address] [place] [address] Carbon dioxide, total [Moles /volume] in Central venous bloodOrdered By: Frances Nova on 01-19-2025 CO2 [Moles/Vol] 25.7 mmol/L 21.0-32.0 [facility] Chest PA and Lateralon 01-19 Chest PA and Lateral [facility] [address] [place] [address] Chest PA and Lateral MR#: [id number] Acct: [id number] Name: SARTHAK PUTNAM Jr. Rep #: [id number] : 1955 M 69 From: Flash Araiza MD PCP: Dr. Scott Mejia MD Status: REG ER Study: Chest PA and Lateral Date of Exam: 01/19/25 Exam# [id number] Ordering Dr: Frances Nova PROCEDURE: CHEST PA AND LATERAL 01/19/2025 REASON FOR EXAM: SOB TECHNIQUE: Frontal and lateral views of the chest. COMPARISON: March 20, 2021 FINDINGS: A device is noted overlying the anterior chest. Heart size and mediastinal configuration are within normal limits. There is no focal infiltrate or consolidation. There is no pneumothorax or effusion. Hardware is noted in the cervical spine. Aortic calcifications are visible. RAD/Chest PA and Lateral IMPRESSION: No acute process is identified in the chest. Reading Location: [facility] CC: Dr. Scott Mejia MD; ANN Stallworth [employer] Mixer: Signed Normal [facility] Chloride assayOrdered By: Paula Nova on 01-19-2025 Chloride [Moles/Vol] 102 mmol/L 98-108 [facility] Emergency Department Summary on 01-19-2025 Emergency Department Summary [facility] Medical Records Department [address] [place] [address] Emergency Department Summary 01/19/25 MR#: [id number] Acct: [id number] Name: SARTHAK PUTNAM Jr. Rep #: [id number] : 1955 69 From: Frances JUAREZ PCP: Dr. Scott Mejia MD Status:DEP ER Location: ED HPI History of Present Illness Chief Complaint: Weakness Narrative Narrative: Patient presenting today with generalized weakness that started but worsened today, he reports he started Seroquel on . He reports that his legs feel weak, making it difficult for him to ambulate. He is here with his son. He reports that he has a history of spinal stenosis in his neck and cervical radiculopathy as well as leg weakness, he had a cervical fusion performed by Dr. Fischer 2 weeks ago and has been doing well postop until . He denies any redness or discharge from his incision site. He reports that he has had chronic dyspnea for a long time, this has been ongoing even before his surgery, he is on Eliquis and Plavix which he resumed the day of his surgery. He denies any history of blood clots. He denies known history of CHF. He denies fevers, chills, chest pain, abdominal pain, nausea, and vomiting. [facility] Medical History Dyslipidemia ST elevation (STEMI) myocardial infarction involving right coronary artery ( 02/04/24) GERD (gastroesophageal reflux disease) COPD (chronic obstructive pulmonary disease) Nicotine dependence, cigarettes, uncomplicated Lung nodule Home Medications ???Medication ???Instructions ???Recorded ???Last Taken ???Type pantoprazole 40 mg tablet,delayed 40 mg PO DAILY GERD 09/26/2309/24 History release atorvastatin 80 mg tablet 80 mg PO QHS 30 days #30 tabs 01/22 02/14 Unknown Rx lisinopril 5 mg tablet 5 mg PO DAILY 30 days #30 tabs Unknown Rx Held on 10/29/24. Instructions: hypotension buspirone 7.5 mg tablet 7.5 mg PO BID 03/21/24 Unknown His tory mirtazapine 30 mg tablet 30 mg PO QHS 03/25/24 Unknown Hist ory clopidogrel 75 mg tablet (Plavix) 75 mg PO DAILY #93 tabs 04/08/24 Unknown Rx fluticasone fur. 200 mcg-umeclid 1 ea inhalation QDAY #1 ea 4 Unknown Rx 62.5 mcg-vilant 25 mcg inhalat.powder (Trelegy Ellipta) apixaban 5 mg tablet (Eliquis) 5 mg PO BID Atrial Fibrillation Unknown Rx #60 tabs acetaminophen 500 mg capsule 500 mg PO Q6H PRN pain 01/19/25 History gabapentin 300 mg capsule 300 mg PO QHS 01/19/25 01/18/25 Hi story quetiapine 25 mg tablet 25 mg PO QHS 01/19/25 Unknown Hist ory Allergy/AdvReac Type Severity Reaction Status Date / Time No Known Allergies Allergy Verified 01/19/25 11:35 Surgical History Stented coronary artery (02/05/24) Social History Smoking Status: Former smoker Tobacco: How many years used: 60 second hand exposure: Yes alcohol intake: never substance use type: does not use ROS ROS ED Constitutional Constitutional ED: Denies chills or fever(s) Cardiovascular Cardiovascular: Denies chest pain Respiratory/Chest Respiratory/Chest: Reports dyspnea; Denies cough or wheezing Gastrointestinal Gastrointestinal: Denies abdominal pain, nausea or vomiting Genitourinary Genitourinary ED: Denies dysuria, hematuria or urinary frequency Musculoskeletal Musculoskeletal: Denies neck pain Integumentary Denies rash Neurologic Neurologic: Reports weakness EXAM Physical Exam Const Vital Signs: 01/19/25 11:33 01/19/25 12:28 01/19/25 12:30 Temperature 98.3 F 98.5 F Temperature Source Oral Oral Pulse Rate 98 86 Respiratory Rate 18 17 Respiratory Effort Normal Respiratory Pattern Normal Blood Pressure 95/62 116/70 Blood Pressure Mean 73 85 Pulse Ox 94 96 Oxygen Delivery Method Room Air Room Air Oxygen Flow Rate (L/min) 01/19/25 13:40 01/19/25 14:00 01/19/25 14:55 Temperature 98.5 F 98.5 F 98.4 F Temperature Source Oral Oral Oral Pulse Rate 88 78 90 Respiratory Rate 18 18 18 Respiratory Effort Respiratory Pattern Blood Pressure 119/91 H 149/74 H 136/84 H Blood Pressure Mean 100 99 101 Pulse Ox 96 96 96 Oxygen Delivery Method Room Air Nasal Cannula Room Air Oxygen Flow Rate (L/min) 3 01/19/25 15:29 Temperature 98.5 F Temperature Source Pulse Rate 78 Respiratory Rate 18 Respiratory Effort Respiratory Pattern Blood Pressure 149/74 H Blood Pressure Mean 99 Pulse Ox 96 Oxygen Delivery Method Oxygen Flow Rate (L/min) Positive well nourished, well developed and no apparent distress Gene (more content not included)... Normal [facility] Eosinophil percentageOrdered By: Frances Nova on 01-19-2025 Eosinophils/100 WBC (Bld) 0.6 % 0-5 [facility] Erythrocyte distribution wid th ratioOrdered By: Frances Nova on 01-19-2025 Erythrocyte distribution width (RBC) [Ratio] 13.2 % 11.6-14.6 [facility] Erythrocyte distribution wid th standard deviationOrdered By: Frances Nova on 01-19-2025 Erythrocyte distribution width (RBC) [Ratio] 47.4 fl High 35.1-43.9 [facility] Glomerular filtration rate ( GFR) estimation/1.73 sq m using serum, plasma, or whole bOrdered By: Frances Nova on 01-19-2025 GFR/1.73 sq M.predicted among non-blacks MDRD (S/P/Bld) [Vol rate/Area] 93 mL/min/{1.73_m2} >60 [facility] Comment on above: mL/min/1.73m2 CKD-EP I Creatinine Equation (2020) Hematocrit Auto (Bld) [Volum e fraction]Ordered By: Frances Nova on 01-19-2025 Hematocrit (Bld) [Volume fraction] 38.8 % Low 40-54 [facility] Hemoglobin measurementOrdere d By: Frances Nova on 01-19-2025 Hemoglobin (Bld) [Mass/Vol] 12.6 g/dL Low 13.0-16.5 [facility] Immature granulocytes/100 WB C Auto (Bld)Ordered By: Frances Nova on 01-19-2025 Immature granulocytes/100 WBC (Bld) 1.100 % High 0.0-0.9 [facility] Comment on above: IG% - Immature Granu locytes (promyelocytes, myelocytes and metamyelocytes) > 1% indicates that a LEFT SHIFT is Present. Ketones Test strip Ql (U)Ord ered By: Frances Nova on 01-19-2025 Ketones Ql (U) Negative Negative [facility] L499.0042on 01-19-2025 Trop T High Sen Normal <=22 [facility] Comment on above: Result Comment: NO S PEICMEN COLLECTED. PATIENT DEPARTED ED. Performed By: #### L 499.0042 #### [facility] [address] [place], [address] L501.4021on 01-19-2025 Trop T High Sen 25 ng/L High <=22 [facility] Comment on above: Performed By: #### L 100.0100, L500.2500, L501.4021 #### [facility] [address] [place], [address] LABORATORYOrdered By: Richard Hay on 01-19-2025 FLUAV RNA SHAAN+probe Ql (Resp) Negative 4 (01/19/25 8:54 PM) Normal Negative [facility] Auto Viro/Sero SS Comment on above: Result Comment: [place] [id number] FLUBV RNA SHAAN+probe Ql (Resp) Negative 5 (01/19/25 8:54 PM) Normal Negative [facility] Viro/Sero SS Comment on above: Result Comment: [place] [id number] RSV PCR Negative 6 (01/19/25 8:54 PM) Normal Negative [facility] Viro/Sero SS Comment on above: Result Comment: [place] [id number] SARS-CoV-2 (COVID-19) RNA SHAAN+probe Ql (Resp) Negative 2, 3 (01/19/25 8:54 PM) Normal Negative [facility] Viro/Sero SS Comment on above: Result Comment: [place] [id number] Interpretive Data: T his test has been authorized by FDA under an EUA for use by authorized laboratories and has not been FDA cleared or approved. Results from the Xpert Xpress SARS-CoV-2/Flu/RSV or Xpert Xpress SARS-CoV-2 only test should be correlated with the clinical history, epidemiological data, and other data available to the clinician evaluating the patient. Performance of the Xpert Xpress SARS-CoV-2/Flu/RSV or Xpert Xpress SARS-CoV-2 only test has only been established in nasopharyngeal swab specimens. Erroneous test results might occur from improper specimen collection; failure to follow the recommended sample collection, handling, and storage procedures; technical error; or sample mix-up.False negative results may occur if virus is present at levels below the analytical limit of detection. Viral nucleic acid may persist in vivo, independent of virus viability. Detection of analyte target(s) does not imply that the corresponding virus(es) are infectious or are the causative agents for clinical symptoms.Recent patient exposure to FluMist or other live attenuated influenza vaccines may cause inaccurate positive results. LABORATORYOrdered By: SYSTEM SYSTEM on 01-19-2025 Troponin I.cardiac DL <= 0.01 ng/mL [Mass/Vol] 9 ng/L Normal 0 - 54 ng/L AH ADM SS Comment on above: Interpretive Data: High Sensitive Troponin I Reference Ranges: Female: 0-34 ng/L Male: 0-54 ng/L Testing performed on Profind analyzer using direct chemiluminescent technology. MCV (mean corpuscular volume ) determinationOrdered By: Frances Nova on 01-19-2025 MCV (RBC) [Entitic vol] 98.0 fL High 80-94 [facility] Mean corpuscular hemoglobin (MCH) determinationOrdered By: Frances Nova on 01-19-2025 MCH (RBC) [Entitic mass] 31.8 pg 27.0-32.0 [facility] Mean corpuscular hemoglobin concentration (MCHC) determinationOrdered By: Frances Nova on 01-19-2025 MCHC (RBC) [Mass/Vol] 32.5 g/dL 32-36 [facility] Mean platelet volume determi nationOrdered By: Frances Nova on 01-19-2025 Platelet mean volume (Bld) [Entitic vol] 8.6 fL 6.2-12.0 [facility] Microscopic analysis of urin e for red blood cells (RBC)Ordered By: Frances Nova on 01-19-2025 Microscopic analysis of urine for red blood cells (RBC) 0 SEEN /hpf 0-5 [facility] Monocyte percentageOrdered B y: Frances Nova on 01-19-2025 Monocytes/100 WBC (Bld) 5.6 % 0-10 [facility] Mucus LM Ql (Urine sed)Order ed By: Frances Nova on 01-19-2025 Mucus Ql (Urine sed) 0 SEEN /hpf [facility] Neutrophil percentageOrdered By: Frances Nova on 01-19-2025 Neutrophils/100 WBC (Bld) 80.3 % High 47-70 [facility] Nitrite Test strip Ql (U)Ord ered By: Frances Nova on 01-19-2025 Nitrite Ql (U) Negative Negative [facility] Nucleated red blood cell per centageOrdered By: Frances Nova on 01-19-2025 Nucleated RBC/100 WBC (Bld) [Ratio] 0 % 0-5 [facility] Platelet countOrdered By: Paula Nova on 01-19-2025 Platelets (Bld) [#/Vol] 400 10*3/uL 150-450 [facility] Potassium measurement (mass/ volume)Ordered By: Frances Nova on 01-19-2025 Potassium (Unsp spec) [Mass/Vol] 3.7 mmol/L 3.3-5.1 [facility] Comment on above: Hemolysis present, R esults could be affected. Protein Test strip Ql (U)Ord ered By: Frances Nova on 01-19-2025 Protein Ql (U) 15 mg/dl High Negative [facility] RBC Auto (Bld) [#/Vol]Ordere d By: Frances Nova on 01-19-2025 RBC (Bld) [#/Vol] 3.96 10*6/uL Low 4.6-6.2 [facility] Serum creatinine measurement (mass/volume)Ordered By: Frances Nova on 01-19-2025 Creatinine [Mass/Vol] 0.87 mg/dL 0.70-1.20 [facility] Serum glucose measurement (m ass/volume)Ordered By: Frances Nova on 01-19-2025 Glucose [Mass/Vol] 118 mg/dL High 70-99 [facility] Serum or plasma calcium karel urement (mass/volume)Ordered By: Frances Nova on 01-19-2025 Calcium [Mass/Vol] 9.1 mg/dL 7.6-11.0 [facility] Serum or plasma urea nitroge n measurement (mass/volume)Ordered By: Frances Nova on 01-19-2025 Urea nitrogen [Mass/Vol] 11 mg/dL 4-19 [facility] Sodium levelOrdered By: Douglas Nova on 01-19-2025 Sodium [Moles/Vol] 141 mmol/L 133-145 [facility] Squamous epithelial cells de tection in urine sediment by light microscopyOrdered By: Frances Nova on 01-19-2025 Epithelial cells.squamous LM Ql (Urine sed) 0 SEEN /hpf 0-5 [facility] TROPHSon 01-19-2025 High Sensitivity Troponin I 9 ng/L Normal 0-54 [facility] Comment on above: Result Comment: High Sensitive Troponin I Reference Ranges: Female: 0-34 ng/L Male: 0-54 ng/L Testing performed on CENX IM analyzer using direct chemiluminescent technology. Performed By: #### T [facility] #### [place] [address] Troponin T.cardiac [Mass/vol ume] in Serum or Plasma by High sensitivity methodOrdered By: Frances Nova on 01-19-2025 Troponin T.cardiac High sensitivity method [Mass/Vol] 25 ng/L High <22 [facility] Urinalysis, Completeon 01-19 BACTERIA 0 SEEN Normal None Seen [facility] Comment on above: Order Comment: CLEAN CATCH Performed By: #### L 400.0001 #### [facility] [address] [place], [address] EPI,SQUAMOUS 0 SEEN Normal [address] [place] [address] Comment on above: Order Comment: CLEAN CATCH Performed By: #### L 400.0001 #### [facility] [address] [place], [address] Mucus Ql (Urine sed) 0 SEEN Normal [facility] Comment on above: Order Comment: CLEAN CATCH Performed By: #### L 400.0001 #### [facility] [address] [place], [address] RBC 0 SEEN Normal [address] [place] [address] Comment on above: Order Comment: CLEAN CATCH Performed By: #### L 400.0001 #### [facility] [address] [place], [address] WBC 0 SEEN Normal 0-5 [facility] Comment on above: Order Comment: CLEAN CATCH Performed By: #### L 400.0001 #### [facility] [address] [place], [address] Urine clarityOrdered By: Turner Nova on 01-19-2025 Clarity (U) Sl. Cloudy Clear [facility] Urine color determinationOrd ered By: Frances Nova on 01-19-2025 Color (U) Yellow Yellow [facility] Urine glucose detectionOrder ed By: Frances Nova on 01-19-2025 Glucose Ql (U) Normal mg/dl Normal [facility] Urine leukocyte esterase det ection by dipstickOrdered By: Frances Nova on 01-19-2025 Leukocyte esterase Test strip Ql (U) Negative Negative [facility] Urine pHOrdered By: Nura Nova on 01-19-2025 pH (U) 6.5 [pH] 5.0 - 8.0 [facility] Urine sediment bacteria coun t by microscopy (number/high power field)Ordered By: Frances Nova on 01-19-2025 Bacteria LM.HPF (Urine sed) [#/Area] 0 /[HPF] None Seen [facility] Urine specific gravity measu rementOrdered By: Frances Nova on 01-19-2025 Specific gravity (U) [Rel density] 1.010 1.002-1.030 [facility] Urine urobilinogen measureme ntOrdered By: Frances Nova on 01-19-2025 Urobilinogen Ql (U) Normal mg/dl Normal [facility] White blood cell (WBC) count Ordered By: Frances Nova on 01-19-2025 WBC (Bld) [#/Vol] 8.0 10*3/uL 4.4-11.0 [facility] White blood cell countOrdere d By: Frances Nova on 01-19-2025 White blood cell count 0 SEEN /hpf 0-5 [facility] Urine Cultureon 01-16-2025 [facility] Culture exhibits no growth. Normal [facility] Comment on above: Performed By: #### M 100.2200 ####[facility] [id number] [place], [address] Urine cultureOrdered By: Tiffanie Mejia on 01-15-2025 Bacteria identified Cx Nom (U) Culture exhibits no growth. [facility] .Auto Diffon 01-06-2025 Basophil, Absolute 0.0 10 3/mcL Normal 0.0-0.3 [facility] Comment on above: Performed By: #### P RO, APTT, FIB, PLT #### [address] [address] Basophils/100 WBC (Bld) 0.0 % Normal 0.0-2.5 [facility] Comment on above: Performed By: #### P RO, APTT, FIB, PLT #### [address] [address] Eosinophil, Absolute 0.0 10 3/mcL Normal 0.0-0.7 [facility] Comment on above: Performed By: #### P RO, APTT, FIB, PLT #### [address] [address] Eosinophils/100 WBC (Bld) 0.0 % Normal 0.0-6.0 [facility] Comment on above: Performed By: #### P RO, APTT, FIB, PLT #### [address] [address] Lymphocyte, Absolute 0.8 10 3/mcL Low 0.9-4.3 [facility] Comment on above: Performed By: #### P RO, APTT, FIB, PLT #### [address] [address] Lymphocytes/100 WBC (Bld) 7.4 % Low 20.0-40.0 [facility] Comment on above: Performed By: #### P RO, APTT, FIB, PLT #### [address] [address] Monocyte, Absolute 1.2 10 3/mcL Normal 0.1-1.4 [facility] Comment on above: Performed By: #### P RO, APTT, FIB, PLT #### [address] [address] Monocytes/100 WBC (Bld) 10.1 % Normal 2.0-13.0 [facility] Comment on above: Performed By: #### P RO, APTT, FIB, PLT #### [address] [address] Neutrophils/100 WBC (Bld) 82.5 % High 50.0-75.0 [facility] Comment on above: Performed By: #### P RO, APTT, FIB, PLT #### [address] [address] .GFRon 01-06-2025 Estimated Glomerular Filtration Rate 92 ml/min/1.73sqm Normal [facility] Comment on above: Result Comment: Stages of Chronic Kidney Disease (CKD) Stage Description eGFR(ml/min/1.73 sq.m.) CKD 1 Normal kidney function or >=90 normal kindney function with possible kidney damage (ex. Proteinuria) CKD 2 Kidney damage with mild loss 60-89 of kidney function CKD 3a Mild to moderate loss of kidney 45-59 function CKD 3b Moderate to severe loss of 30-44 of kindey function CKD 4 Severe loss of kidney function 15-29 CKD 5 Kidney failure <15 Note: (go live 2024) the eGFR calculation was updated to the 2020 CKD-EPI creatinine equation without a race factor to calculate the eGFR results. Performed By: #### P RO, APTT, FIB, PLT #### [address] [address] .NEUABSon 01-06-2025 Neutrophil, Absolute 9.4 10 3/mcL High 2.3-8.1 [facility] Comment on above: Performed By: #### P RO, APTT, FIB, PLT #### [address] [address] CBCon 01-06-2025 Erythrocyte distribution width (RBC) [Ratio] 13.5 % Normal 11.5-15.5 [facility] Comment on above: Performed By: #### P RO, APTT, FIB, PLT #### [address] [address] Hematocrit (Bld) [Volume fraction] 36.5 % Low 40.0-52.0 [facility] Comment on above: Performed By: #### P RO, APTT, FIB, PLT #### [place] [address] Hgb 12.1 G/dL Low 13.0-17.5 [facility] Comment on above: Performed By: #### P RO, APTT, FIB, PLT #### [place] [address] MCH (RBC) [Entitic mass] 31.6 pg Normal 27.0-33.0 [facility] Comment on above: Performed By: #### P RO, APTT, FIB, PLT #### [place] [address] MCHC 33.2 G/dL Normal 32.0-36.0 [facility] Comment on above: Performed By: #### P RO, APTT, FIB, PLT #### [place] [address] MCV (RBC) [Entitic vol] 95.0 fL Normal 81.0-100.0 [facility] Comment on above: Performed By: #### P RO, APTT, FIB, PLT #### [place] [address] Platelet 266 10 3/mcL Normal 150-450 [facility] Comment on above: Performed By: #### P RO, APTT, FIB, PLT #### [place] [address] Platelet mean volume (Bld) [Entitic vol] 7.1 fL Normal 6.4-10.5 [facility] Comment on above: Performed By: #### P RO, APTT, FIB, PLT #### [place] [address] RBC 3.84 10 6/mcL Low 4.50-6.00 [facility] Comment on above: Performed By: #### P RO, APTT, FIB, PLT #### [place] [address] WBC 11.5 10 3/mcL High 4.5-10.8 [facility] Comment on above: Performed By: #### P RO, APTT, FIB, PLT #### [address] [address] CMPon 01-06-2025 Albumin Level 3.0 G/dL Low 3.2-4.8 [facility] Comment on above: Performed By: #### P RO, APTT, FIB, PLT #### [place] [address] Albumin/Globulin [Mass ratio] 1.0 {ratio} Normal 0.9-1.6 [facility] Comment on above: Performed By: #### P RO, APTT, FIB, PLT #### [place] [address] ALP [Catalytic activity/Vol] 71 U/L Normal 38-126 [facility] Comment on above: Performed By: #### P RO, APTT, FIB, PLT #### [place] [address] ALT [Catalytic activity/Vol] 688 U/L High 12-55 [facility] Comment on above: Performed By: #### P RO, APTT, FIB, PLT #### [place] [id number] AST [Catalytic activity/Vol] 758 U/L High 8-34 [facility] Comment on above: Performed By: #### P RO, APTT, FIB, PLT #### [place] [address] Bili Total 0.80 mg/dL Normal 0.20-1.20 [facility] Comment on above: Result Comment: Use of this assay is not recommended for patients undergoing treatment with eltrombopag due to the potential for falsely elevated results. Performed By: #### P RO, APTT, FIB, PLT #### [place] [address] BUN/Creatinine Ratio 17.8 ratio Normal 10.0-22.0 [facility] Comment on above: Performed By: #### P RO, APTT, FIB, PLT #### [place] [id number] Calcium [Mass/Vol] 9.1 mg/dL Normal 8.7-10.4 [facility] Comment on above: Performed By: #### P RO, APTT, FIB, PLT #### [address] [address] Chloride [Moles/Vol] 104 mmol/L Normal 98-110 [facility] Comment on above: Performed By: #### P RO, APTT, FIB, PLT #### [address] [address] CO2 [Moles/Vol] 27 mmol/L Normal 22-32 [facility] Comment on above: Performed By: #### P RO, APTT, FIB, PLT #### [address] [address] Creatinine [Mass/Vol] 0.90 mg/dL Normal 0.60-1.40 [facility] Comment on above: Result Comment: Test ing performed on Nobl analyzer using enzymatic creatinine methodology. Performed By: #### P RO, APTT, FIB, PLT #### [address] [address] Electrolyte Balance 10.0 mEq/L Normal 4.0-15.0 [facility] Comment on above: Performed By: #### P RO, APTT, FIB, PLT #### [address] [address] Globulin 3.1 G/dL Normal 1.5-3.8 [facility] Comment on above: Performed By: #### P RO, APTT, FIB, PLT #### [address] [address] Glucose [Mass/Vol] 132 mg/dL High 82-115 [facility] Comment on above: Performed By: #### P RO, APTT, FIB, PLT #### [address] [address] Potassium [Moles/Vol] 4.3 mmol/L Normal 3.5-5.0 [facility] Comment on above: Performed By: #### P RO, APTT, FIB, PLT #### [address] [address] Sodium [Moles/Vol] 141 mmol/L Normal 136-145 [facility] Comment on above: Performed By: #### P RO, APTT, FIB, PLT #### [address] [address] Total Protein 6.1 G/dL Normal 5.7-8.2 [facility] Comment on above: Performed By: #### P RO, APTT, FIB, PLT #### [address] [address] Urea nitrogen [Mass/Vol] 16.0 mg/dL Normal 8.0-22.0 [facility] Comment on above: Performed By: #### P RO, APTT, FIB, PLT #### [address] [address] LABORATORYOrdered By: SYSTEM SYSTEM on 01-06-2025 Albumin BCP dye [Mass/Vol] 3.0 G/dL Low 3.2 - 4.8 G/dL ADM SS Albumin/Globulin [Mass ratio] 1.0 {ratio} Normal 0.9 - 1.6 ratio ADM SS ALP [Catalytic activity/Vol] 71 U/L Normal 38 - 126 U/L ADM SS ALT No additional P-5'-P [Catalytic activity/Vol] 688 U/L High 12 - 55 U/L ADM SS AST [Catalytic activity/Vol] 758 U/L High 8 - 34 U/L AH ADM SS Basophils (Bld) [#/Vol] 0.0 103/mcL Normal 0.0 - 0.3 10^3/mcL Workflow SS Basophils/100 WBC (Bld) 0.0 % Normal 0.0 - 2.5 % Workflow SS Bilirubin [Mass/Vol] 0.80 mg/dL Normal 0.20 - 1.20 mg/dL ADM SS Comment on above: Interpretive Data: U se of this assay is not recommended for patients undergoing treatment with eltrombopag due to the potential for falsely elevated results. Calcium [Mass/Vol] 9.1 mg/dL Normal 8.7 - 10. 4 mg/dL ADM SS Chloride [Moles/Vol] 104 mmol/L Normal 98 - 11 0 mEq/L ADM SS CO2 [Moles/Vol] 27 mmol/L Normal 22 - 32 mEq/L ADM SS Creatinine [Mass/Vol] 0.90 mg/dL Normal 0.60 - 1.40 mg/dL ADM SS Comment on above: Interpretive Data: T esting performed on Nobl analyzer using enzymatic creatinine methodology. Electrolyte Balance 10.0 mEq/L Normal 4.0 - 15 .0 mEq/L ADM SS Eosinophils (Bld) [#/Vol] 0.0 103/mcL Normal 0.0 - 0.7 10^3/mcL Workflow SS Eosinophils/100 WBC (Bld) 0.0 % Normal 0.0 - 6.0 % Workflow SS Erythrocyte distribution width (RBC) [Ratio] 13.5 % Normal 11.5 - 15.5 % Workflow SS Estimated Glomerular Filtration Rate 92 ml/min/1.73sqm Invalid Interpretation Code Chemistry S Comment on above: Interpretive Data: Stages of Chronic Kidney Disease (CKD) Stage Description eGFR(ml/min/1.73 sq.m.) CKD 1 Normal kidney function or >=90 normal kindney function with possible kidney damage (ex. Proteinuria) CKD 2 Kidney damage with mild loss 60-89 of kidney function CKD 3a Mild to moderate loss of kidney 45-59 function CKD 3b Moderate to severe loss of 30-44 of kindey function CKD 4 Severe loss of kidney function 15-29 CKD 5 Kidney failure <15 Note: (go live 2024) the eGFR calculation was updated to the 2020 CKD-EPI creatinine equation without a race factor to calculate the eGFR results. Globulin 3.1 G/dL Normal 1.5 - 3.8 G/dL ADM SS Glucose [Mass/Vol] 132 mg/dL High 82 - 115 mg/dL ADM SS Hematocrit (Bld) [Volume fraction] 36.5 % Low 40.0 - 52.0 % Workflow SS Hemoglobin (Bld) [Mass/Vol] 12.1 G/dL Low 13.0 - 17.5 G/dL Workflow SS Lymphocytes (Bld) [#/Vol] 0.8 103/mcL Low 0.9 - 4.3 10^3/mcL Workflow SS Lymphocytes/100 WBC (Bld) 7.4 % Low 20.0 - 40.0 % Workflow SS MCH (RBC) [Entitic mass] 31.6 pg Normal 27.0 - 33.0 pg AH Workflow SS MCHC 33.2 G/dL Normal 32.0 - 36.0 G/dL AH Workflow SS MCV (RBC) [Entitic vol] 95.0 fL Normal 81.0 - 100.0 fL AH Workflow SS Monocytes (Bld) [#/Vol] 1.2 103/mcL Normal 0.1 - 1.4 10^3/mcL AH Workflow SS Monocytes/100 WBC (Bld) 10.1 % Normal 2.0 - 13.0 % AH Workflow SS Neutrophils (Bld) [#/Vol] 9.4 103/mcL High 2.3 - 8.1 10^3/mcL AH Workflow SS Neutrophils/100 WBC (Bld) 82.5 % High 50.0 - 75.0 % AH Workflow SS Platelet mean volume (Bld) [Entitic vol] 7.1 fL Normal 6.4 - 10.5 fL AH Workflow SS Platelets (Bld) [#/Vol] 266 103/mcL Normal 150 - 450 10^3/mcL AH Workflow SS Potassium [Moles/Vol] 4.3 mmol/L Normal 3.5 - 5.0 mEq/L AH ADM SS Protein [Mass/Vol] 6.1 G/dL Normal 5.7 - 8.2 G/dL AH ADM SS RBC (Bld) [#/Vol] 3.84 106/mcL Low 4.50 - 6.0 0 10^6/mcL AH Workflow SS Sodium [Moles/Vol] 141 mmol/L Normal 136 - 145 mEq/L AH ADM SS Urea nitrogen [Mass/Vol] 16.0 mg/dL Normal 8.0 - 22.0 mg/dL AH ADM SS Urea nitrogen/Creatinine [Mass ratio] 17.8 ratio Normal 10.0 - 22.0 ratio AH ADM SS WBC (Bld) [#/Vol] 11.5 103/mcL High 4.5 - 10.8 10^3/mcL AH Workflow SS .GFRon 01-05-2025 Estimated Glomerular Filtration Rate 77 ml/min/1.73sqm Normal [facility] Comment on above: Result Comment: Stages of Chronic Kidney Disease (CKD) Stage Description eGFR(ml/min/1.73 sq.m.) CKD 1 Normal kidney function or >=90 normal kindney function with possible kidney damage (ex. Proteinuria) CKD 2 Kidney damage with mild loss 60-89 of kidney function CKD 3a Mild to moderate loss of kidney 45-59 function CKD 3b Moderate to severe loss of 30-44 of kindey function CKD 4 Severe loss of kidney function 15-29 CKD 5 Kidney failure <15 Note: (go live 2024) the eGFR calculation was updated to the 2020 CKD-EPI creatinine equation without a race factor to calculate the eGFR results. Performed By: #### P RO, APTT, FIB, PLT #### [place] [address] .Manual Diffon 01-05-2025 Bands 3.0 % Normal 0.0-5.0 [facility] Comment on above: Performed By: #### P RO, APTT, FIB, PLT #### [place] [address] Basophil %, Manual 0.0 % Normal 0.0-2.5 [facility] Comment on above: Performed By: #### P RO, APTT, FIB, PLT #### [place] [address] Basophil, Abs Manual 0.0 10 3/mcL Normal 0.0-0.3 [facility] Comment on above: Performed By: #### P RO, APTT, FIB, PLT #### [place] [address] Eosinophil %, Manual 0.0 % Normal 0.0-6.0 [facility] Comment on above: Performed By: #### P RO, APTT, FIB, PLT #### [place] [address] Eosinophil, Abs Manual 0.0 10 3/mcL Normal 0.0-0.7 [facility] Comment on above: Performed By: #### P RO, APTT, FIB, PLT #### [place] [address] Lymphocyte %, Manual 4.0 % Low 20.0-40.0 [facility] Comment on above: Performed By: #### P RO, APTT, FIB, PLT #### [place] [address] Lymphocyte, Abs Manual 0.4 10 3/mcL Low 0.9-4.3 [facility] Comment on above: Performed By: #### P RO, APTT, FIB, PLT #### [place] [address] Monocyte %, Manual 2.0 % Normal 2.0-13.0 [facility] Comment on above: Performed By: #### P RO, APTT, FIB, PLT #### [place] [address] Monocyte, Abs Manual 0.2 10 3/mcL Normal 0.1-1.4 [facility] Comment on above: Performed By: #### P RO, APTT, FIB, PLT #### [place] [address] Neutrophil %, Manual 91.0 % High 50.0-75.0 [facility] Comment on above: Performed By: #### P RO, APTT, FIB, PLT #### [place] [address] Neutrophil, Abs Manual 9.8 10 3/mcL High 2.3-8.1 [facility] Comment on above: Performed By: #### P RO, APTT, FIB, PLT #### [place] [address] Nucleated RBC 0.0 /100 WBC Normal [facility] Comment on above: Performed By: #### P RO, APTT, FIB, PLT #### [place] [address] .Morphon 01-05-2025 RBC morphology finding Nom (Bld) Normal Normal [facility] Comment on above: Performed By: #### P RO, APTT, FIB, PLT #### [place] [address] Platelet Estimate Normal Normal [facility] Comment on above: Performed By: #### P RO, APTT, FIB, PLT #### [place] [address] APTTon 01-05-2025 aPTT Coag (Bld) [Time] 33.1 s Normal 25.0-35.0 [facility] Comment on above: Result Comment: For Heparin anticoagulation therapy, the recommended therapeutic range is: 54-77 seconds (APTT Correlation with Anti-Xa therapeutic range of 0.3-0.7 units/ml). PLEASE REFERENCE THE PHARMACY PROTOCOL FOR DOSING. Performed By: #### P RO, APTT, FIB, PLT #### [place] [address] CBCon 01-05-2025 Erythrocyte distribution width (RBC) [Ratio] 14.1 % Normal 11.5-15.5 [facility] Comment on above: Performed By: #### P RO, APTT, FIB, PLT #### [place] [address] Hematocrit (Bld) [Volume fraction] 40.2 % Normal 40.0-52.0 [facility] Comment on above: Performed By: #### P RO, APTT, FIB, PLT #### [place] [address] Hgb 13.4 G/dL Normal 13.0-17.5 [facility] Comment on above: Performed By: #### P RO, APTT, FIB, PLT #### [place] [address] MCH (RBC) [Entitic mass] 32.0 pg Normal 27.0-33.0 [facility] Comment on above: Performed By: #### P RO, APTT, FIB, PLT #### [place] [address] MCHC 33.3 G/dL Normal 32.0-36.0 [facility] Comment on above: Performed By: #### P RO, APTT, FIB, PLT #### [place] [address] MCV (RBC) [Entitic vol] 96.2 fL Normal 81.0-100.0 [facility] Comment on above: Performed By: #### P RO, APTT, FIB, PLT #### [place] [address] Platelet 282 10 3/mcL Normal 150-450 [facility] Comment on above: Performed By: #### P RO, APTT, FIB, PLT #### [place] [address] Platelet mean volume (Bld) [Entitic vol] 6.9 fL Normal 6.4-10.5 [facility] Comment on above: Performed By: #### P RO, APTT, FIB, PLT #### [place] [address] RBC 4.18 10 6/mcL Low 4.50-6.00 [facility] Comment on above: Performed By: #### P RO, APTT, FIB, PLT #### [place] [address] WBC 10.4 10 3/mcL Normal 4.5-10.8 [facility] Comment on above: Performed By: #### P RO, APTT, FIB, PLT #### [place] [address] CMPon 01-05-2025 ALT [Catalytic activity/Vol] 1186 U/L High 12-55 [facility] Comment on above: Performed By: #### P RO, APTT, FIB, PLT #### [place] [address] AST [Catalytic activity/Vol] 1829 U/L High 8-34 [facility] Comment on above: Performed By: #### P RO, APTT, FIB, PLT #### [place] [address] Albumin Level 3.1 G/dL Low 3.2-4.8 [facility] Comment on above: Performed By: #### P RO, APTT, FIB, PLT #### [place] [address] Albumin/Globulin [Mass ratio] 0.9 {ratio} Normal 0.9-1.6 [facility] Comment on above: Performed By: #### P RO, APTT, FIB, PLT #### [place] [address] ALP [Catalytic activity/Vol] 78 U/L Normal 38-126 [facility] Comment on above: Performed By: #### P RO, APTT, FIB, PLT #### [place] [id number] Bili Total 1.40 mg/dL High 0.20-1.20 [facility] Comment on above: Result Comment: Use of this assay is not recommended for patients undergoing treatment with eltrombopag due to the potential for falsely elevated results. Performed By: #### P RO, APTT, FIB, PLT #### [place] [address] BUN/Creatinine Ratio 16.3 ratio Normal 10.0-22.0 [facility] Comment on above: Performed By: #### P RO, APTT, FIB, PLT #### [place] [address] Calcium [Mass/Vol] 9.0 mg/dL Normal 8.7-10.4 [facility] Comment on above: Performed By: #### P RO, APTT, FIB, PLT #### [place] [address] Chloride [Moles/Vol] 103 mmol/L Normal 98-110 [facility] Comment on above: Performed By: #### P RO, APTT, FIB, PLT #### [place] [address] CO2 [Moles/Vol] 27 mmol/L Normal 22-32 [facility] Comment on above: Performed By: #### P RO, APTT, FIB, PLT #### [place] [address] Creatinine [Mass/Vol] 1.04 mg/dL Normal 0.60-1.40 [facility] Comment on above: Result Comment: Test ing performed on Nobl analyzer using enzymatic creatinine methodology. Performed By: #### P RO, APTT, FIB, PLT #### [place] [id number] Electrolyte Balance 11.0 mEq/L Normal 4.0-15.0 [facility] Comment on above: Performed By: #### P RO, APTT, FIB, PLT #### [address] [address] Globulin 3.4 G/dL Normal 1.5-3.8 [facility] Comment on above: Performed By: #### P RO, APTT, FIB, PLT #### [address] [address] Glucose [Mass/Vol] 151 mg/dL High 82-115 [facility] Comment on above: Performed By: #### P RO, APTT, FIB, PLT #### [address] [address] Potassium [Moles/Vol] 4.4 mmol/L Normal 3.5-5.0 [facility] Comment on above: Performed By: #### P RO, APTT, FIB, PLT #### [address] [address] Sodium [Moles/Vol] 141 mmol/L Normal 136-145 [facility] Comment on above: Performed By: #### P RO, APTT, FIB, PLT #### [address] [address] Total Protein 6.5 G/dL Normal 5.7-8.2 [facility] Comment on above: Performed By: #### P RO, APTT, FIB, PLT #### [address] [address] Urea nitrogen [Mass/Vol] 17.0 mg/dL Normal 8.0-22.0 [facility] Comment on above: Performed By: #### P RO, APTT, FIB, PLT #### [address] [address] FIBon 01-05-2025 Fibrinogen 631 mg/dL High 250-560 [facility] Comment on above: Performed By: #### P RO, APTT, FIB, PLT #### [address] [address] LABORATORYOrdered By: SYSTEM SYSTEM on 01-05-2025 Albumin BCP dye [Mass/Vol] 3.1 G/dL Low 3.2 - 4.8 G/dL AH ADM SS Albumin/Globulin [Mass ratio] 0.9 {ratio} Normal 0.9 - 1.6 ratio ADM SS ALP [Catalytic activity/Vol] 78 U/L Normal 38 - 126 U/L ADM SS ALT No additional P-5'-P [Catalytic activity/Vol] 1186 U/L High 12 - 55 U/L ADM SS AST [Catalytic activity/Vol] 1829 U/L High 8 - 34 U/L ADM SS Band form neutrophils/100 WBC (Bld) 3.0 % Normal 0.0 - 5.0 % Workflow SS Basophils (Bld) [#/Vol] 0.0 103/mcL Normal 0.0 - 0.3 10^3/mcL Workflow SS Basophils/100 WBC (Bld) 0.0 % Normal 0.0 - 2.5 % Workflow SS Bilirubin [Mass/Vol] 1.40 mg/dL High 0.20 - 1.20 mg/dL ADM SS Comment on above: Interpretive Data: U se of this assay is not recommended for patients undergoing treatment with eltrombopag due to the potential for falsely elevated results. Calcium [Mass/Vol] 9.0 mg/dL Normal 8.7 - 10. 4 mg/dL ADM SS Chloride [Moles/Vol] 103 mmol/L Normal 98 - 11 0 mEq/L ADM SS CO2 [Moles/Vol] 27 mmol/L Normal 22 - 32 mEq/L ADM SS Creatinine [Mass/Vol] 1.04 mg/dL Normal 0.60 - 1.40 mg/dL ADM SS Comment on above: Interpretive Data: T esting performed on [employer] analyzer using enzymatic creatinine methodology. Electrolyte Balance 11.0 mEq/L Normal 4.0 - 15 .0 mEq/L ADM SS Eosinophils (Bld) [#/Vol] 0.0 103/mcL Normal 0.0 - 0.7 10^3/mcL Workflow SS Eosinophils/100 WBC (Bld) 0.0 % Normal 0.0 - 6.0 % Workflow SS Erythrocyte distribution width (RBC) [Ratio] 14.1 % Normal 11.5 - 15.5 % Workflow SS Estimated Glomerular Filtration Rate 77 ml/min/1.73sqm Invalid Interpretation Code Chemistry S Comment on above: Interpretive Data: Stages of Chronic Kidney Disease (CKD) Stage Description eGFR(ml/min/1.73 sq.m.) CKD 1 Normal kidney function or >=90 normal kindney function with possible kidney damage (ex. Proteinuria) CKD 2 Kidney damage with mild loss 60-89 of kidney function CKD 3a Mild to moderate loss of kidney 45-59 function CKD 3b Moderate to severe loss of 30-44 of kindey function CKD 4 Severe loss of kidney function 15-29 CKD 5 Kidney failure <15 Note: (go live 2024) the eGFR calculation was updated to the 2020 CKD-EPI creatinine equation without a race factor to calculate the eGFR results. Globulin 3.4 G/dL Normal 1.5 - 3.8 G/dL AH ADM SS Glucose [Mass/Vol] 151 mg/dL High 82 - 115 mg/dL AH ADM SS Hematocrit (Bld) [Volume fraction] 40.2 % Normal 40.0 - 52.0 % AH Workflow SS Hemoglobin (Bld) [Mass/Vol] 13.4 G/dL Normal 13.0 - 17.5 G/dL AH Workflow SS Lymphocytes (Bld) [#/Vol] 0.4 103/mcL Low 0.9 - 4.3 10^3/mcL AH Workflow SS Lymphocytes/100 WBC (Bld) 4.0 % Low 20.0 - 40.0 % AH Workflow SS Magnesium [Mass/Vol] 1.9 mg/dL Normal 1.6 - 2 .4 mg/dL AH ADM SS MCH (RBC) [Entitic mass] 32.0 pg Normal 27.0 - 33.0 pg AH Workflow SS MCHC 33.3 G/dL Normal 32.0 - 36.0 G/dL AH Workflow SS MCV (RBC) [Entitic vol] 96.2 fL Normal 81.0 - 100.0 fL AH Workflow SS Monocytes (Bld) [#/Vol] 0.2 103/mcL Normal 0.1 - 1.4 10^3/mcL AH Workflow SS Monocytes/100 WBC (Bld) 2.0 % Normal 2.0 - 13.0 % AH Workflow SS Neutrophils (Bld) [#/Vol] 9.8 103/mcL High 2.3 - 8.1 10^3/mcL AH Workflow SS Neutrophils/100 WBC (Bld) 91.0 % High 50.0 - 75.0 % AH Workflow SS Nucleated RBC 0.0 /100 WBC Invalid Interpretation Code AH Workflow SS Phosphate [Mass/Vol] 4.6 mg/dL Normal 2.4 - 5 .1 mg/dL AH ADM SS Comment on above: Interpretive Data: * *Note - New Reference Range in effect 20 Platelet mean volume (Bld) [Entitic vol] 6.9 fL Normal 6.4 - 10.5 fL AH Workflow SS Platelets (Bld) [#/Vol] 282 103/mcL Normal 150 - 450 10^3/mcL AH Workflow SS Platelets LM Ql (Bld) Normal *NA* (01/05/25 5:33 PM) Invalid Interpretation Code AH Workflow SS Potassium [Moles/Vol] 4.4 mmol/L Normal 3.5 - 5.0 mEq/L AH ADM SS Protein [Mass/Vol] 6.5 G/dL Normal 5.7 - 8.2 G/dL AH ADM SS RBC (Bld) [#/Vol] 4.18 106/mcL Low 4.50 - 6.0 0 10^6/mcL AH Workflow SS RBC morphology finding Nom (Bld) Normal *NA* (01/05/25 5:33 PM) Invalid Interpretation Code Workflow SS Sodium [Moles/Vol] 141 mmol/L Normal 136 - 145 mEq/L ADM SS Urea nitrogen [Mass/Vol] 17.0 mg/dL Normal 8.0 - 22.0 mg/dL AH ADM SS Urea nitrogen/Creatinine [Mass ratio] 16.3 ratio Normal 10.0 - 22.0 ratio AH ADM SS WBC (Bld) [#/Vol] 10.4 103/mcL Normal 4.5 - 10.8 10^3/mcL AH Workflow SS aPTT Coag (Bld) [Time] 33.1 s Normal 25.0 - 35.0 seconds [facility] SS Comment on above: Interpretive Data: F or Heparin anticoagulation therapy, the recommended therapeutic range is: 54-77 seconds (APTT Correlation with Anti-Xa therapeutic range of 0.3-0.7 units/ml). PLEASE REFERENCE THE PHARMACY PROTOCOL FOR DOSING. Fibrinogen 631 mg/dL High 250 - 560 mg/dL AH [facility] SS Platelets (Bld) [#/Vol] 293 103/mcL Normal 150 - 450 10^3/mcL AH Workflow SS PT Coag (PPP) [Time] 11.0 s Normal 9.0 - 1 4.4 seconds AH [facility] SS Comment on above: Interpretive Data: E ffective 04/07/08, Protime results may be affected by some antibiotics (i.e. Ciprofloxacin, Azithromycin, Bactrim) which may potentiate the action of oral anticoagulants, with further increases in Protime/INR. PT International Ratio 1.0 ratio Invalid Interpretation Code Marly Comment on above: Interpretive Data: T he [employer] (CHEST, 1991, 102:312S-25S) recommended therapeutic range for oral anticoagulant therapy is: LOW RISK: Prophylaxis of venous thrombosis INR: 2.0-3.0 Treatment of pulmonary embolism 2.0-3.0 Prevention of systemic embolism 2.0-3.0 HIGH RISK: Mechanical prosthetic valves 2.5-3.5 MGon 01-05-2025 Magnesium [Mass/Vol] 1.9 mg/dL Normal 1.6-2.4 [facility] Comment on above: Performed By: #### P RO, APTT, FIB, PLT #### [address] [address] PHOSon 01-05-2025 Phosphate [Mass/Vol] 4.6 mg/dL Normal 2.4-5.1 [facility] Comment on above: Result Comment: No te - New Reference Range in effect 20 Performed By: #### P RO, APTT, FIB, PLT #### [facility] [address] [place] [id number] PLTon 01-05-2025 Platelet 293 10 3/mcL Normal 150-450 [facility] Comment on above: Performed By: #### P RO, APTT, FIB, PLT #### [facility] [address] [place] [address] PROon 01-05-2025 INR Coag (PPP) [Relative time] 1.0 {INR} Normal [facility] Comment on above: Result Comment: [employer] (CHEST, 1991, 102:312S-25S) recommended therapeutic range for oral anticoagulant therapy is: LOW RISK: Prophylaxis of venous thrombosis INR: 2.0-3.0 Treatment of pulmonary embolism 2.0-3.0 Prevention of systemic embolism 2.0-3.0 HIGH RISK: Mechanical prosthetic valves 2.5-3.5 Performed By: #### P RO, APTT, FIB, PLT #### [facility] [address] [place] [address] PT Coag (PPP) [Time] 11.0 s Normal 9.0-14.4 [facility] Comment on above: Result Comment: Effe ctive 04/07/08, Protime results may be affected by some antibiotics (i.e. Ciprofloxacin, Azithromycin, Bactrim) which may potentiate the action of oral anticoagulants, with further increases in Protime/INR. Performed By: #### P RO, APTT, FIB, PLT #### [facility] [address] [place] [address] XR FLUORO > 2 HRS TECH TIMEo n 01-05-2025 XR FLUORO > 2 HRS TECH TIME ORIGINAL EXAMINATION: SPOT FLUOROSCOPIC IMAGES 01/05/2025 3:03 pm TECHNIQUE: Fluoroscopy was provided by the radiology department for procedure. Radiologist was not present during examination. FLUOROSCOPY DOSE AND TYPE: Radiation Exposure Index: Kerma mGy, 27.87 mGy COMPARISON: MRI cervical spine 10/06/2024 HISTORY: ORDERING SYSTEM PROVIDED HISTORY: Reason for Exam: NECK PAIN Intraprocedural imaging. FINDINGS: Spot intraoperative images are obtained demonstrating intraoperative intervention in the upper cervical spine.. IMPRESSION: Intraprocedural fluoroscopic spot images as above. See separate procedure report for more information. Interpreted by: Frederick Durant DO Preliminary Report By: Frederick Durant DO Electronically signed By Frederick Durant DO Dictated Date: 01/05/2025 3:25:15 PM Prelim Date: 01/05/2025 3:28:58 PM Sign Date: 01/05/2025 3:28:58 PM Ordering Provider: MANDO FISCHER [facility] Cardiovascular stress test r eportOrdered By: Fer Mcintyre on 12-30-2024 Study report [facility] [address] [place] [address] MR#: [id number] Acct: [id number] Name: SARTHAK PUTNAM Toney Yeung Rep #: [id number] : 1955 69 From: Fer Mcintyre MD Primary Care: Dr. Scott Mejia MD Status : REG CLI Referring Dr: Azucena Cai NP SEMICONDUCTOR EQUIPMENT TECHNICIAN-C Sex: M C Stress Test Report Pharmacologic myocardial perfusion stress test. 69-year-old for preop evaluation and new onset A-fib Resting EKG demonstrates sinus rhythm with a rate of 100 bpm. Resting blood pressure is 128/80 mmHg. 0.4 mg of regadenoson was infused per usual protocol followed by rapid intravenous saline flush injection. Continuous EKG monitoringwas performed. The maximum heart rate was 120 bpm which was 80% of max impactedheart rate the maximum workload was 1 metabolic equivalent. At rest there were no ST or T wave changes noted to suggest ischemia and at peak infusion nonspecific ST changes were noted which did not meet the criteria for ischemia. No clinical angina is noted. The final blood pressure was 132/80 mmHg. Myocardial perfusion protocol. 11.8 mCi of technetium 99m sestamibi was injected at rest. 0.4 mg of regadenoson was infused per usual protocol. At peak infusion 33.9 mCi of technetium 99m sestamibi was injected stress images were obtained stress and rest images were reconstructed and compared in the short axis vertical long and horizontal long axis. Gated images were also obtained. Perfusion SPECT analysis: Review of the stress images demonstrate normal uptake of tracer noted in all areas of the myocardium. The resting images similar demonstrated normal uptake of tracer noted in all areas of the myocardium. No areas of reversibility are noted to suggest ischemia and no previous infarct is noted. Gated SPECT analysis: The gated ejection fraction is 73%. Conclusion: Normal pharmacologic myocardial perfusion stress test. Preserved ejection fraction. 12/30/241707 Date _ Fer Mcintyre MD CC: SEMICONDUCTOR EQUIPMENT TECHNICIAN-C Azucena Cai; Dr. Scott Mejia MD ~ Date Dictated: 12/30/241705 Date Transcribed: 12/30/241705 Pie Filling Mixer: CO Signed [facility] Work Phone: Stress Reporton 12-30-2024 Stress Report [facility] Cardiovascular Services [facility] [place] [address] MR#: [id number] Acct: [id number] Name: SARTHAK PUTNAM Jr. Rep #: [id number] : 1955 69 From: Fer Mcintyre MD Primary Care: Dr. Scott Mejia MD Status: REG CLI Referring Dr: Azucena Cai NP Sex: M C Stress Test Report Pharmacologic myocardial perfusion stress test. 69-year-old for preop evaluation and new onset A-fib Resting EKG demonstrates sinus rhythm with a rate of 100 bpm. Resting blood pressure is 128/80 mmHg. 0.4 mg of regadenoson was infused per usual protocol followed by rapid intravenous saline flush injection. Continuous EKG monitoring was performed. The maximum heart rate was 120 bpm which was 80% of max impacted heart rate the maximum workload was 1 metabolic equivalent. At rest there were no ST or T wave changes noted to suggest ischemia and at peak infusion nonspecific ST changes were noted which did not meet the criteria for ischemia. No clinical angina is noted. The final blood pressure was 132/80 mmHg. Myocardial perfusion protocol. 11.8 mCi of technetium 99m sestamibi was injected at rest. 0.4 mg of regadenoson was infused per usual protocol. At peak infusion 33.9 mCi of technetium 99m sestamibi was injected stress images were obtained stress and rest images were reconstructed and compared in the short axis vertical long and horizontal long axis. Gated images were also obtained. Perfusion SPECT analysis: Review of the stress images demonstrate normal uptake of tracer noted in all areas of the myocardium. The resting images similar demonstrated normal uptake of tracer noted in all areas of the myocardium. No areas of reversibility are noted to suggest ischemia and no previous infarct is noted. Gated SPECT analysis: The gated ejection fraction is 73%. Conclusion: Normal pharmacologic myocardial perfusion stress test. Preserved ejection fraction. 12/30/241707 Date Fer Mcintyre MD CC: JORGE Cai; Dr. Scott Mejia MD Date Dictated: 12/30/241705 Date Transcribed: 12/30/241705 Pie Filling Mixer: CO Signed Normal [facility] 12 Lead EKG performed by [facility] on 12-25-2024 12 Lead EKG performed by [facility] [address] [place] [address] 12 Lead EKG performed by [facility] 12/25/24 0735 MR#: [id number] Acct: [id number] Name: SARTHAK PUTNAM JrCarlos Rep #: [id number] : 1955 69 From: Azucena Cai NP SEMICONDUCTOR EQUIPMENT TECHNICIAN-C Attending Dr: Azucena Cai, SEMICONDUCTOR EQUIPMENT TECHNICIAN-C Status: DEP Toney HUDSON Ordering Dr: Azucena Cai NP SEMICONDUCTOR EQUIPMENT TECHNICIAN-C Date: 12/25/24 Location: [facility] Sex: M C Admitted: BMS/12 Lead EKG performed by [facility] ECG Report Interpretation ---Sinus Rhythm WITHIN NORMAL LIMITSElectronically signed on 12/31/2024 at 11:25 by Fer Mcintyre Software Version [id number] 12/31/24 1130 Date Azucena Cai NP SEMICONDUCTOR EQUIPMENT TECHNICIAN-C CC: Dr. Scott Mejia MD Date Dictated: 12/25/24734 Date Transcribed: 12/25/24734 Pie Filling Mixer: СВЕТЛАНА Signed Normal [facility] Cardiology Visit Reporton Cardiology Visit Report [facility] [address] [place] [address] OFFICE VISIT Date of Service: 12/25/24 MR#: [id number] Acct: [id number] Name: SARTHAK PUTNAM JrCarlos Rep #: [id number] : 1955 Provider: JORGE meeks Age/Sex: 69/M Location: [facility] Status: Signed HPI HPI History of Present Illness Details: Patient is a 69-year-old white male who comes in today for preop clearance evaluation and new onset atrial fibrillation. He was noted to be in atrial fibrillation on his pre-op EKG on 12/22/2024. The patient is status post stenting of his right coronary artery February 05, 2024 when he presented with an inferior wall infarct. His presenting symptom was a feeling of hot air when he breathes to end. He had previously had an infarct in the same artery distribution he presented with an indigestion type sensation. The patient denies either one of the symptoms at this point in time. 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 The patient is being evaluated by Dr. Mando Fischer for possible surgical intervention. He was last evaluated June 2024 and at that time it was decided that they should delay surgery. The patient reports to me that since that time he has had progressive weakness of his right lower extremity he is now walking with a walker and is examined in a wheelchair today. He does have bilateral arm numbness which is really unchanged. His LV function is known to be normal with an ejection fraction of 60% by echocardiogram prior to discharge. His ejection fraction was 40-45% at the time of his emergent left heart catheterization January 2024. From a cardiac standpoint, the patient is doing well. He denies any palpitations, chest pain, pressure or heaviness. He does have SOB with walking longer distances-this is nothing new. He denies Orthopnea, and PND. He does not have bleeding issues; no blood in urine, stool, or nosebleeds. He does acknowledge a decrease in energy level. He denies any decrease in myalgias, or claudication. He does not have edema, or sudden weight gain. He does have occasional lightheadedness; he states this is short lived. He denies dizziness, syncopal or near syncopal episodes, and headaches. 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 Instructions: hypotension carvedilol 6.25 mg tablet 6.25 mg PO BID 90 days #180 tabs 0 02/26/24 12/25/24 Rx Held on 10/29/24. Instructions: hypotension buspirone 7.5 mg tablet 7.5 mg PO BID 03/21/24 12/25/24 Hi story mirtazapine 30 mg tablet 30 mg PO QHS 03/25/24 12/25/24 His tory clopidogrel 75 mg tablet (Plavix) 75 mg PO DAILY #93 tabs 04/08/24 12/25/24 Rx fluticasone fur. 200 mcg-umeclid 1 ea inhalation QDAY #1 ea 2 4 12/25/24 Rx 62.5 mcg-vilant 25 mcg inhalat.powder (Trelegy Ellipta) apixaban 5 mg tablet (Eliquis) 5 mg PO BID Atrial Fibrillation 12/25/24 Rx #60 tabs Ejection fraction %: 60 Have you fallen in the past year?: Yes Nurse's Note: neck surgery on january 05 [facility] Medical History Dyslipidemia ST elevation (STEMI) myocardial infarction involving right coronary artery ( 02/04/24) GERD (gastroesophageal reflux disease) COPD (chronic obstructive pulmonary disease) Nicotine dependence, cigarettes, uncomplicated Lung nodule Surgical History Stented coronary artery (02/05/24) Social History Smoking Status: Former smoker Tobacco: How many years used: 60 second hand exposure: Yes alcohol intake: never substance use type: does not use ROS Const Const: Positive for fatigue; Negative for weakness, headache(s) or frequent falls Eyes Eyes: Negative for blurry vision ENT ENT: Positive for dizziness (occasional); Negative for headach (more content not included)... Normal [facility] .GFRon 12-22-2024 Estimated Glomerular Filtration Rate 93 ml/min/1.73sqm Normal [facility] Comment on above: Result Comment: Stages of Chronic Kidney Disease (CKD) Stage Description eGFR(ml/min/1.73 sq.m.) CKD 1 Normal kidney function or >=90 normal kindney function with possible kidney damage (ex. Proteinuria) CKD 2 Kidney damage with mild loss 60-89 of kidney function CKD 3a Mild to moderate loss of kidney 45-59 function CKD 3b Moderate to severe loss of 30-44 of kindey function CKD 4 Severe loss of kidney function 15-29 CKD 5 Kidney failure <15 Note: (go live 2024) the eGFR calculation was updated to the 2020 CKD-EPI creatinine equation without a race factor to calculate the eGFR results. Performed By: #### C BC, MORPH, GFR, BMP, DIFF #### [place] [address] .Manual Diffon 12-22-2024 Bands 1.0 % Normal 0.0-5.0 [facility] Comment on above: Performed By: #### C BC, MORPH, GFR, BMP, DIFF #### [place] [address] Basophil %, Manual 0.0 % Normal 0.0-2.5 [facility] Comment on above: Performed By: #### C BC, MORPH, GFR, BMP, DIFF #### [place] [address] Basophil, Abs Manual 0.0 10 3/mcL Normal 0.0-0.3 [facility] Comment on above: Performed By: #### C BC, MORPH, GFR, BMP, DIFF #### [place] [address] Eosinophil %, Manual 3.0 % Normal 0.0-6.0 [facility] Comment on above: Performed By: #### C BC, MORPH, GFR, BMP, DIFF #### [place] [address] Eosinophil, Abs Manual 0.2 10 3/mcL Normal 0.0-0.7 [facility] Comment on above: Performed By: #### C BC, MORPH, GFR, BMP, DIFF #### [address] [address] Lymphocyte %, Manual 19.0 % Low 20.0-40.0 [facility] Comment on above: Performed By: #### C BC, MORPH, GFR, BMP, DIFF #### [address] [address] Lymphocyte, Abs Manual 1.5 10 3/mcL Normal 0.9-4.3 [facility] Comment on above: Performed By: #### C BC, MORPH, GFR, BMP, DIFF #### [address] [address] Metamyelocyte 2.0 % Normal [facility] Comment on above: Performed By: #### C BC, MORPH, GFR, BMP, DIFF #### [address] [address] Monocyte %, Manual 10.0 % Normal 2.0-13.0 [facility] Comment on above: Performed By: #### C BC, MORPH, GFR, BMP, DIFF #### [address] [address] Monocyte, Abs Manual 0.8 10 3/mcL Normal 0.1-1.4 [facility] Comment on above: Performed By: #### C BC, MORPH, GFR, BMP, DIFF #### [address] [address] Neutrophil %, Manual 65.0 % Normal 50.0-75.0 [facility] Comment on above: Performed By: #### C BC, MORPH, GFR, BMP, DIFF #### [address] [address] Neutrophil, Abs Manual 5.1 10 3/mcL Normal 2.3-8.1 [facility] Comment on above: Performed By: #### C BC, MORPH, GFR, BMP, DIFF #### [address] [address] Nucleated RBC 0.0 /100 WBC Normal [facility] Comment on above: Performed By: #### C BC, MORPH, GFR, BMP, DIFF #### [address] [address] .Morphon 12-22-2024 Anisocytosis Ql (Bld) 1+ Normal [facility] Comment on above: Performed By: #### C VFLURV #### [address] [address] Platelet Estimate Normal Normal [facility] Comment on above: Performed By: #### C VFLURV #### [address] [address] BMPon 12-22-2024 BUN/Creatinine Ratio 14.9 ratio Normal 10.0-22.0 [facility] Comment on above: Performed By: #### C BC, MORPH, GFR, BMP, DIFF #### [place] [address] Calcium [Mass/Vol] 9.5 mg/dL Normal 8.7-10.4 [facility] Comment on above: Performed By: #### C BC, MORPH, GFR, BMP, DIFF #### [place] [address] Chloride [Moles/Vol] 107 mmol/L Normal 98-110 [facility] Comment on above: Performed By: #### C BC, MORPH, GFR, BMP, DIFF #### [place] [address] CO2 [Moles/Vol] 22 mmol/L Normal 22-32 [facility] Comment on above: Performed By: #### C BC, MORPH, GFR, BMP, DIFF #### [place] [id number] Creatinine [Mass/Vol] 0.87 mg/dL Normal 0.60-1.40 [facility] Comment on above: Result Comment: Test ing performed on Nobl analyzer using enzymatic creatinine methodology. Performed By: #### C BC, MORPH, GFR, BMP, DIFF #### [place] [id number] Electrolyte Balance 11.0 mEq/L Normal 4.0-15.0 [facility] Comment on above: Performed By: #### C BC, MORPH, GFR, BMP, DIFF #### [place] [id number] Glucose [Mass/Vol] 93 mg/dL Normal 82-115 [facility] Comment on above: Performed By: #### C BC, MORPH, GFR, BMP, DIFF #### [place] [id number] Potassium [Moles/Vol] 3.9 mmol/L Normal 3.5-5.0 [facility] Comment on above: Performed By: #### C BC, MORPH, GFR, BMP, DIFF #### [place] [id number] Sodium [Moles/Vol] 140 mmol/L Normal 136-145 [facility] Comment on above: Performed By: #### C BC, MORPH, GFR, BMP, DIFF #### [place] [address] Urea nitrogen [Mass/Vol] 13.0 mg/dL Normal 8.0-22.0 [facility] Comment on above: Performed By: #### C BC, MORPH, GFR, BMP, DIFF #### [place] [id number] CBCon 12-22-2024 Erythrocyte distribution width (RBC) [Ratio] 14.8 % Normal 11.5-15.5 [facility] Comment on above: Performed By: #### C BC, MORPH, GFR, BMP, DIFF #### [place] [phone] Hematocrit (Bld) [Volume fraction] 44.8 % Normal 40.0-52.0 [facility] Comment on above: Performed By: #### C BC, MORPH, GFR, BMP, DIFF #### [place] [id number] Hgb 14.9 G/dL Normal 13.0-17.5 [facility] Comment on above: Performed By: #### C BC, MORPH, GFR, BMP, DIFF #### [place] [id number] MCH (RBC) [Entitic mass] 31.8 pg Normal 27.0-33.0 [facility] Comment on above: Performed By: #### C BC, MORPH, GFR, BMP, DIFF #### [place] [address] MCHC 33.3 G/dL Normal 32.0-36.0 [facility] Comment on above: Performed By: #### C BC, MORPH, GFR, BMP, DIFF #### [place] [address] MCV (RBC) [Entitic vol] 95.7 fL Normal 81.0-100.0 [facility] Comment on above: Performed By: #### C BC, MORPH, GFR, BMP, DIFF #### [place] [address] Platelet 282 10 3/mcL Normal 150-450 [facility] Comment on above: Performed By: #### C BC, MORPH, GFR, BMP, DIFF #### [place] [address] Platelet mean volume (Bld) [Entitic vol] 6.8 fL Normal 6.4-10.5 [facility] Comment on above: Performed By: #### C BC, MORPH, GFR, BMP, DIFF #### [place] [address] RBC 4.68 10 6/mcL Normal 4.50-6.00 [facility] Comment on above: Performed By: #### C BC, MORPH, GFR, BMP, DIFF #### [place] [address] WBC 7.7 10 3/mcL Normal 4.5-10.8 [facility] Comment on above: Performed By: #### C BC, MORPH, GFR, BMP, DIFF #### [place] [address] LABORATORYOrdered By: SYSTEM SYSTEM on 12-22-2024 Anisocytosis Ql (Bld) 1+ *NA* (12/22/24 8:14 AM) Invalid Interpretation Code AH Workflow SS Band form neutrophils/100 WBC (Bld) 1.0 % Normal 0.0 - 5.0 % AH Workflow SS Basophils (Bld) [#/Vol] 0.0 103/mcL Normal 0.0 - 0.3 10^3/mcL Workflow SS Basophils/100 WBC (Bld) 0.0 % Normal 0.0 - 2.5 % Workflow SS Calcium [Mass/Vol] 9.5 mg/dL Normal 8.7 - 10. 4 mg/dL ADM SS Chloride [Moles/Vol] 107 mmol/L Normal 98 - 11 0 mEq/L ADM SS CO2 [Moles/Vol] 22 mmol/L Normal 22 - 32 mEq/L ADM SS Creatinine [Mass/Vol] 0.87 mg/dL Normal 0.60 - 1.40 mg/dL ADM SS Comment on above: Interpretive Data: T esting performed on Nobl analyzer using enzymatic creatinine methodology. Electrolyte Balance 11.0 mEq/L Normal 4.0 - 15 .0 mEq/L ADM SS Eosinophils (Bld) [#/Vol] 0.2 103/mcL Normal 0.0 - 0.7 10^3/mcL Workflow SS Eosinophils/100 WBC (Bld) 3.0 % Normal 0.0 - 6.0 % Workflow SS Erythrocyte distribution width (RBC) [Ratio] 14.8 % Normal 11.5 - 15.5 % Workflow SS Estimated Glomerular Filtration Rate 93 ml/min/1.73sqm Invalid Interpretation Code Chemistry S Comment on above: Interpretive Data: Stages of Chronic Kidney Disease (CKD) Stage Description eGFR(ml/min/1.73 sq.m.) CKD 1 Normal kidney function or >=90 normal kindney function with possible kidney damage (ex. Proteinuria) CKD 2 Kidney damage with mild loss 60-89 of kidney function CKD 3a Mild to moderate loss of kidney 45-59 function CKD 3b Moderate to severe loss of 30-44 of kindey function CKD 4 Severe loss of kidney function 15-29 CKD 5 Kidney failure <15 Note: (go live 2024) the eGFR calculation was updated to the 2020 CKD-EPI creatinine equation without a race factor to calculate the eGFR results. Glucose [Mass/Vol] 93 mg/dL Normal 82 - 115 mg/dL ADM SS Hematocrit (Bld) [Volume fraction] 44.8 % Normal 40.0 - 52.0 % Workflow SS Hemoglobin (Bld) [Mass/Vol] 14.9 G/dL Normal 13.0 - 17.5 G/dL AH Workflow SS Lymphocytes (Bld) [#/Vol] 1.5 103/mcL Normal 0.9 - 4.3 10^3/mcL AH Workflow SS Lymphocytes/100 WBC (Bld) 19.0 % Low 20.0 - 40.0 % AH Workflow SS MCH (RBC) [Entitic mass] 31.8 pg Normal 27.0 - 33.0 pg AH Workflow SS MCHC 33.3 G/dL Normal 32.0 - 36.0 G/dL AH Workflow SS MCV (RBC) [Entitic vol] 95.7 fL Normal 81.0 - 100.0 fL AH Workflow SS Metamyelocytes/100 WBC (Bld) 2.0 % Invalid Interpretation Code Workflow SS Monocytes (Bld) [#/Vol] 0.8 103/mcL Normal 0.1 - 1.4 10^3/mcL AH Workflow SS Monocytes/100 WBC (Bld) 10.0 % Normal 2.0 - 13.0 % AH Workflow SS Neutrophils (Bld) [#/Vol] 5.1 103/mcL Normal 2.3 - 8.1 10^3/mcL AH Workflow SS Neutrophils/100 WBC (Bld) 65.0 % Normal 50.0 - 75.0 % AH Workflow SS Nucleated RBC 0.0 /100 WBC Invalid Interpretation Code Workflow SS Platelet mean volume (Bld) [Entitic vol] 6.8 fL Normal 6.4 - 10.5 fL AH Workflow SS Platelets (Bld) [#/Vol] 282 103/mcL Normal 150 - 450 10^3/mcL AH Workflow SS Platelets LM Ql (Bld) Normal *NA* (12/22/24 8:14 AM) Invalid Interpretation Code Workflow SS Potassium [Moles/Vol] 3.9 mmol/L Normal 3.5 - 5.0 mEq/L AH ADM SS RBC (Bld) [#/Vol] 4.68 106/mcL Normal 4.50 - 6.0 0 10^6/mcL AH Workflow SS Sodium [Moles/Vol] 140 mmol/L Normal 136 - 145 mEq/L AH ADM SS Urea nitrogen [Mass/Vol] 13.0 mg/dL Normal 8.0 - 22.0 mg/dL AH ADM SS Urea nitrogen/Creatinine [Mass ratio] 14.9 ratio Normal 10.0 - 22.0 ratio AH ADM SS WBC (Bld) [#/Vol] 7.7 103/mcL Normal 4.5 - 10.8 10^3/mcL AH Workflow SS XR CHEST 2 VIEWSon XR CHEST 2 VIEWS ORIGINAL EXAMINATION: TWO XRAY VIEWS OF THE CHEST12/22/2024 9:28 am COMPARISON: None HISTORY: ORDERING SYSTEM PROVIDED HISTORY: Reason for Exam: COPD FINDINGS: The heart size is normal.Stent graft noted in a coronary artery. There is no pulmonary consolidation. No pneumothorax or pleural effusion. No aggressive osseous lesions identified.Fusion plate seen in the lower cervical spine. IMPRESSION: No acute radiographic findings. Interpreted by: Frederick Beyer MD Preliminary Report By: Frederick Beyer MD Electronically signed By Frederick Beyer MD Dictated Date: 12/22/2024 9:54:52 AM Prelim Date: 12/22/2024 9:55:19 AM Sign Date: 12/22/2024 9:55:19 AM Ordering Provider: MANDO FISCHER [facility] MAIN Esophagus Dual Contraston Esophagus Dual Contrast [facility] [address] [place] [id number] Esophagus Dual Contrast MR#: [id number] Acct: [id number] Name: SARTHAK PUTNAM Rep #: [id number] : 1955 M 69 From: José arizmendi MD PCP: Dr. Scott Mejia MD Status: REG CLI Study: Esophagus Dual Contrast Date of Exam: 12/11/24 Exam# [id number] Ordering Dr: Anthony Dewitt MD PROCEDURE: ESOPHAGUS DUAL CONTRAST 12/11/2024 REASON FOR EXAM: DYSPHAGIA S/P SPINAL SURGERY TECHNIQUE: FLUOROSCOPIC TIME: 38 seconds minutes. 3.5 mGy FLUOROGRAPHIC IMAGES: 62 COMPARISON: None. FINDINGS: The patient ingested barium. Fluoroscopic imaging of the esophagus was performed. There is no evidence of esophageal obstruction. No mass lesion is seen. No evidence of gastroesophageal reflux. The patient ingested a 12 mm tablet the barium without any difficulty. RAD/Esophagus Dual Contrast IMPRESSION: Unremarkable air contrast esophagram. Reading Location: [facility] CC: Dr. Anthony Dewitt MD; Dr. Scott Mejia MD Pie Filling Mixer: Signed Normal [facility] Absolute neutrophil countOrd ered By: Neftaly Scottie on 11-03-2024 Neutrophils (Bld) [#/Vol] 3.5 10*3/uL 2.0-7.7 [facility] Basic Metabolic Profile (BMP )on 11-03-2024 BUN/CRE 17.6 RATIO Normal 10-20 [facility] Comment on above: Performed By: #### L 100.0100, L500.2500 #### [facility] [address] [place], [address] CA,Total 9.8 mg/dL Normal 8.5-10.1 [facility] Comment on above: Performed By: #### L 100.0100, L500.2500 #### [facility] [address] [place], [address] Chloride [Moles/Vol] 106 mmol/L Normal 98-107 [facility] Comment on above: Performed By: #### L 100.0100, L500.2500 #### [facility] [address] [place], [address] CO2 [Moles/Vol] 26.0 mmol/L Normal 21.0-32.0 [facility] Comment on above: Performed By: #### L 100.0100, L500.2500 #### [facility] [address] [place], [address] Creatinine [Mass/Vol] 0.97 mg/dL Normal 0.70-1.30 [facility] Comment on above: Result Comment: The validity of the calculated GFR GFRAA in patients over 70 years has not been determined. Clinical correlation is essential. Performed By: #### L 100.0100, L500.2500 #### [facility] [address] [place], [address] EST GFR - AA 99 mL/min Normal >60 [facility] Comment on above: Result Comment: Afri can Armenian GFR Calc Performed By: #### L 100.0100, L500.2500 #### [facility] [address] [place], [address] GAP 8 Normal 5-15 [facility] Comment on above: Performed By: #### L 100.0100, L500.2500 #### [facility] [address] [place], [address] GFR/1.73 sq M.predicted among non-blacks MDRD (S/P/Bld) [Vol rate/Area] 82 mL/min/{1.73_m2} Normal >60 [facility] Comment on above: Result Comment: Non- GFR Calc Performed By: #### L 100.0100, L500.2500 #### [facility] [address] [place], [address] Glucose [Mass/Vol] 151 mg/dL High 74-106 [facility] Comment on above: Result Comment: Fast ing Glucose result greater than or equal to 126 mg/dL suggests DIABETES MELLITUS per A.D.A. criteria. Performed By: #### L 100.0100, L500.2500 #### [facility] [address] [place], [address] Potassium [Moles/Vol] 4.3 mmol/L Normal 3.5-5.1 [facility] Comment on above: Performed By: #### L 100.0100, L500.2500 #### [facility] [address] [place], [address] Sodium [Moles/Vol] 140 mmol/L Normal 136-145 [facility] Comment on above: Performed By: #### L 100.0100, L500.2500 #### [facility] [address] [place], [address] Urea nitrogen [Mass/Vol] 17 mg/dL Normal 7-18 [facility] Comment on above: Performed By: #### L 100.0100, L500.2500 #### [facility] [address] [place], [address] Basophil percentageOrdered B y: Neftaly Scottie on 11-03-2024 Basophils/100 WBC (Bld) 0.5 % 0-1 [facility] Blood urea nitrogen (BUN)/cr eatinine ratioOrdered By: Neftaly Rubin on 11-03-2024 Urea nitrogen/Creatinine [Mass ratio] 17.6 mg/mg 10-20 [facility] CBC W/Diff, Automatedon 10-25-2024 Absolute Lymph 1.73 X10 3/uL Normal 0.83-4.51 [facility] Comment on above: Performed By: #### L 100.0100, L500.2500 #### [facility] [address] [place], [address] Absolute Neut 3.5 X10 3/uL Normal 2.0-7.7 [facility] Comment on above: Performed By: #### L 100.0100, L500.2500 #### [facility] [address] [place], [address] Basophils/100 WBC (Bld) 0.5 % Normal 0-1 [facility] Comment on above: Performed By: #### L 100.0100, L500.2500 #### [facility] [address] [place], [address] Eosinophils/100 WBC (Bld) 2.6 % Normal 0-5 [facility] Comment on above: Performed By: #### L 100.0100, L500.2500 #### [facility] [address] [place], [address] Erythrocyte distribution width (RBC) [Ratio] 13.7 % Normal 11.6-14.6 [facility] Comment on above: Performed By: #### L 100.0100, L500.2500 #### [facility] [address] [place], [address] Hematocrit (Bld) [Volume fraction] 43.4 % Normal 40-54 [facility] Comment on above: Performed By: #### L 100.0100, L500.2500 #### [facility] [address] [place], [address] Hemoglobin (Bld) [Mass/Vol] 14.0 g/dL Normal 13.0-16.5 [facility] Comment on above: Performed By: #### L 100.0100, L500.2500 #### [facility] [address] [place], [address] IG% 1.800 High 0.0-0.9 [facility] Comment on above: Result Comment: IG% - Immature Granulocytes (promyelocytes, myelocytes and metamyelocytes) > 1% indicates that a LEFT SHIFT is Present. Performed By: #### L 100.0100, L500.2500 #### [facility] [address] [place], [address] Lymphocytes/100 WBC (Bld) 28.0 % Normal 19-41 [facility] Comment on above: Performed By: #### L 100.0100, L500.2500 #### [facility] [address] [place], [address] MCH (RBC) [Entitic mass] 30.6 pg Normal 27.0-32.0 [facility] Comment on above: Performed By: #### L 100.0100, L500.2500 #### [facility] [address] [place], [address] MCHC (RBC) [Mass/Vol] 32.3 g/dL Normal 32-36 [facility] Comment on above: Performed By: #### L 100.0100, L500.2500 #### [facility] [address] [place], [address] MCV (RBC) [Entitic vol] 94.8 fL High 80-94 [facility] Comment on above: Performed By: #### L 100.0100, L500.2500 #### [facility] [address] [place], [address] Monocytes/100 WBC (Bld) 10.2 % High 0-10 [facility] Comment on above: Performed By: #### L 100.0100, L500.2500 #### [facility] [address] [place], [address] Neutrophils/100 WBC (Bld) 56.9 % Normal 47-70 [facility] Comment on above: Performed By: #### L 100.0100, L500.2500 #### [facility] [address] [place], [address] Nucleated RBC (Bld) [#/Vol] 0 10*3/uL Normal 0-5 [facility] Comment on above: Performed By: #### L 100.0100, L500.2500 #### [facility] [address] [place], [address] Platelet mean volume (Bld) [Entitic vol] 9.3 fL Normal 6.2-12.0 [facility] Comment on above: Performed By: #### L 100.0100, L500.2500 #### [facility] [address] [place], [address] Platelets (Bld) [#/Vol] 298 10*3/uL Normal 150-450 [facility] Comment on above: Performed By: #### L 100.0100, L500.2500 #### [facility] [address] [place], [address] RBC (Bld) [#/Vol] 4.58 10*6/uL Low 4.6-6.2 [facility] Comment on above: Performed By: #### L 100.0100, L500.2500 #### [facility] [address] [place], [address] RDW SD 47.8 fl High 35.1-43.9 [facility] Comment on above: Performed By: #### L 100.0100, L500.2500 #### [facility] [address] [place], [address] WBC (Bld) [#/Vol] 6.2 10*3/uL Normal 4.4-11.0 [facility] Comment on above: Performed By: #### L 100.0100, L500.2500 #### [facility] [address] [place], [address] Carbon dioxide measurementOr dered By: Neftaly Rubin on 11-03-2024 CO2 [Moles/Vol] 26.0 mmol/L 21.0-32.0 [facility] Chloride measurementOrdered By: Neftaly Rubin on 11-03-2024 Chloride [Moles/Vol] 106 mmol/L 98-107 [facility] Eosinophil percentageOrdered By: Neftaly Rubin on 11-03-2024 Eosinophils/100 WBC (Bld) 2.6 % 0-5 [facility] Erythrocyte distribution wid th ratioOrdered By: Neftaly Rubin on 11-03-2024 Erythrocyte distribution width (RBC) [Ratio] 13.7 % 11.6-14.6 [facility] Erythrocyte distribution wid th standard deviationOrdered By: Neftaly Rubin on 11-03-2024 Erythrocyte distribution width (RBC) [Entitic vol] 47.8 fL High 35.1-43.9 [facility] Estimated glomerular filtrat ion rate (GFR) AmericanOrdered By: Neftaly Rubin on 11-03-2024 Estimated GFR (MDRD) Amer 99 mL/min >60 [facility] Comment on above: GFR Calc Glomerular filtration rate ( GFR) estimationOrdered By: Neftaly Rubin on 11-03-2024 Estimated GFR (MDRD) Non-Af Amer 82 mL/min >60 [facility] Comment on above: Non- GFR Calc Glucose measurementOrdered B y: Neftaly Rubin on 11-03-2024 Glucose [Mass/Vol] 151 mg/dL High 74-106 [facility] Comment on above: Fasting Glucose resu lt greater than or equal to 126 mg/dL suggests DIABETES MELLITUS per A.D.A. criteria. Hematocrit Auto (Bld) [Volum e fraction]Ordered By: Neftaly Rubin on 11-03-2024 Hematocrit (Bld) [Volume fraction] 43.4 % 40-54 [facility] Hemoglobin measurementOrdere d By: Neftaly Rubin on 11-03-2024 Hemoglobin (Bld) [Mass/Vol] 14.0 g/dL 13.0-16.5 [facility] Immature granulocytes/100 WB C Auto (Bld)Ordered By: Neftaly Rubin on 11-03-2024 Immature granulocytes/100 WBC (Bld) 1.800 % High 0.0-0.9 [facility] Comment on above: IG% - Immature Granu locytes (promyelocytes, myelocytes and metamyelocytes) > 1% indicates that a LEFT SHIFT is Present. Lymphocytes Auto (Unsp spec) [#/Vol]Ordered By: Neftaly Rubin on 11-03-2024 Lymphocytes (Bld) [#/Vol] 1.73 10*3/uL 0.83-4.51 [facility] Lymphocytes/100 WBC Auto (Un sp spec)Ordered By: Neftaly Rubin on 11-03-2024 Lymphocytes/100 WBC (Bld) 28.0 % 19-41 [facility] MCV (mean corpuscular volume ) determinationOrdered By: Neftaly Rubin on 11-03-2024 MCV (RBC) [Entitic vol] 94.8 fL High 80-94 [facility] Mean corpuscular hemoglobin (MCH) determinationOrdered By: Neftaly Rubin on 11-03-2024 MCH (RBC) [Entitic mass] 30.6 pg 27.0-32.0 [facility] Mean corpuscular hemoglobin concentration (MCHC) determinationOrdered By: Neftaly Rubin on 11-03-2024 MCHC (RBC) [Mass/Vol] 32.3 g/dL 32-36 [facility] Mean platelet volume determi nationOrdered By: Neftaly Rubin on 11-03-2024 Platelet mean volume (Bld) [Entitic vol] 9.3 fL 6.2-12.0 [facility] Monocyte percentageOrdered B y: Neftaly Rubin on 11-03-2024 Monocytes/100 WBC (Bld) 10.2 % High 0-10 [facility] Neutrophil percentageOrdered By: Neftaly Rubin on 11-03-2024 Neutrophils/100 WBC (Bld) 56.9 % 47-70 [facility] Nucleated red blood cell per centageOrdered By: Neftaly Rubin on 11-03-2024 Nucleated RBC/100 WBC (Bld) [Ratio] 0 % 0-5 [facility] Platelet countOrdered By: Emelyn Rubin on 11-03-2024 Platelets (Bld) [#/Vol] 298 10*3/uL 150-450 [facility] Potassium measurementOrdered By: Neftaly Rubin on 11-03-2024 Potassium [Moles/Vol] 4.3 mmol/L 3.5-5.1 [facility] RBC Auto (Bld) [#/Vol]Ordere d By: Neftaly Rubin on 11-03-2024 RBC (Bld) [#/Vol] 4.58 10*6/uL Low 4.6-6.2 [facility] Serum anion gap measurementO rdered By: Neftaly Rubin on 11-03-2024 Anion gap [Moles/Vol] 8 mmol/L 5-15 [facility] Serum or plasma calcium karel urement (mass/volume)Ordered By: Neftaly Rubin on 11-03-2024 Calcium [Mass/Vol] 9.8 mg/dL 8.5-10.1 [facility] Serum or plasma creatinine m easurement (mass/volume)Ordered By: Neftaly Rubin on 11-03-2024 Creatinine [Mass/Vol] 0.97 mg/dL 0.70-1.30 [facility] Comment on above: The validity of the calculated GFR & GFRAA in patients over 70 years has not been determined. Clinical correlation is essential. Serum or plasma urea nitroge n measurement (mass/volume)Ordered By: Neftaly Rubin on 11-03-2024 Urea nitrogen [Mass/Vol] 17 mg/dL 7-18 [facility] Sodium levelOrdered By: Neftaly Rubin on 11-03-2024 Sodium [Moles/Vol] 140 mmol/L 136-145 [facility] White blood cell (WBC) count Ordered By: Neftaly Rubin on 11-03-2024 WBC (Bld) [#/Vol] 6.2 10*3/uL 4.4-11.0 [facility] MRI SPINE CERVICAL W/O CONTR Lynn 10-06-2024 MRI SPINE CERVICAL W/O CONTRAST ORIGINAL EXAMINATION: MRI OF THE CERVICAL SPINE WITHOUT CONTRAST 10/06/2024 12:36 pm TECHNIQUE: Multiplanar multisequence MRI of the cervical spine was performed without the administration of intravenous contrast. COMPARISON: Cervical spine 09/09/2024. HISTORY: ORDERING SYSTEM PROVIDED HISTORY: Reason for Exam: cervical myelopathy FINDINGS: BONES/ALIGNMENT: Anterior plate and screws transfix C3 and C4. There is interbody bony fusion of C5 and C6. A plate and screws transfix C6 and C7. SPINAL CORD: No abnormal cord signal is seen. SOFT TISSUES: No paraspinal mass identified. C2-C3: Facet arthropathy is present without significant canal or foraminal stenosis. C3-C4: There is anterior fusion. There is severe canal stenosis mildly impinging upon the cervical spinal cord at this level posteriorly. No definite signal abnormality within the cord. C4-C5: Right facet hypertrophy with mild right bony foraminal narrowing. C5-C6: Status post interbody fusion. There is moderate central canal stenosis. C6-C7: Status post anterior fusion. There is ventral ridging from spur and facet hypertrophy with severe canal stenosis and cord compression. There is a focus of increased T2 signal within the cord. C7-T1: There is no significant disc protrusion, spinal canal stenosis or neural foraminal narrowing. IMPRESSION: 1. Anterior cervical fusion C3-C4 and C6-C7. Interbody fusion C5-C6. 2. Severe spinal canal stenosis at C3-C4 and C6-C7 with moderate cord compression at C6-C7 and mild cord compression at C3-C4. 3. Small focus of increased T2 signal within the cord at C6-C7 consistent with myelomalacia. Interpreted by: Rimma Vázquez Preliminary Report By: Rimma Vázquez Electronically signed By Rimma Vázquez Dictated Date: 10/06/2024 12:42:26 PM Prelim Date: 10/06/2024 12:48:41 PM Sign Date: 10/06/2024 12:48:41 PM Ordering Provider: MANDO FISCHER [facility] .Auto Diffon 08-19-2024 Basophil, Absolute 0.0 10 3/mcL Normal 0.0-0.3 [facility] Comment on above: Performed By: #### P RO, APTT, FIB, PLT #### [address] [address] Basophils/100 WBC (Bld) 0.3 % Normal 0.0-2.5 [facility] Comment on above: Performed By: #### P RO, APTT, FIB, PLT #### [address] [address] Eosinophil, Absolute 0.0 10 3/mcL Normal 0.0-0.7 [facility] Comment on above: Performed By: #### P RO, APTT, FIB, PLT #### [address] [address] Eosinophils/100 WBC (Bld) 0.0 % Normal 0.0-6.0 [facility] Comment on above: Performed By: #### P RO, APTT, FIB, PLT #### [address] [address] Lymphocyte, Absolute 0.8 10 3/mcL Low 0.9-4.3 [facility] Comment on above: Performed By: #### P RO, APTT, FIB, PLT #### [address] [address] Lymphocytes/100 WBC (Bld) 8.0 % Low 20.0-40.0 [facility] Comment on above: Performed By: #### P RO, APTT, FIB, PLT #### [address] [address] Monocyte, Absolute 0.6 10 3/mcL Normal 0.1-1.4 [facility] Comment on above: Performed By: #### P RO, APTT, FIB, PLT #### [address] [address] Monocytes/100 WBC (Bld) 6.3 % Normal 2.0-13.0 [facility] Comment on above: Performed By: #### P RO, APTT, FIB, PLT #### [place] [id number] Neutrophils/100 WBC (Bld) 85.4 % High 50.0-75.0 [facility] Comment on above: Performed By: #### P RO, APTT, FIB, PLT #### [place] [address] .NEUABSon 08-19-2024 Neutrophil, Absolute 8.0 10 3/mcL Normal 2.3-8.1 [facility] Comment on above: Performed By: #### P RO, APTT, FIB, PLT #### [place] [address] CBCon 08-19-2024 Erythrocyte distribution width (RBC) [Ratio] 14.4 % Normal 11.5-15.5 [facility] Comment on above: Performed By: #### P RO, APTT, FIB, PLT #### [place] [address] Hematocrit (Bld) [Volume fraction] 39.4 % Low 40.0-52.0 [facility] Comment on above: Performed By: #### P RO, APTT, FIB, PLT #### [place] [address] Hgb 13.5 G/dL Normal 13.0-17.5 [facility] Comment on above: Performed By: #### P RO, APTT, FIB, PLT #### [place] [address] MCH (RBC) [Entitic mass] 32.0 pg Normal 27.0-33.0 [facility] Comment on above: Performed By: #### P RO, APTT, FIB, PLT #### [place] [address] MCHC 34.2 G/dL Normal 32.0-36.0 [facility] Comment on above: Performed By: #### P RO, APTT, FIB, PLT #### [place] [address] MCV (RBC) [Entitic vol] 93.6 fL Normal 81.0-100.0 [facility] Comment on above: Performed By: #### P RO, APTT, FIB, PLT #### [address] [address] Platelet 242 10 3/mcL Normal 150-450 [facility] Comment on above: Performed By: #### P RO, APTT, FIB, PLT #### [place] [address] Platelet mean volume (Bld) [Entitic vol] 7.0 fL Normal 6.4-10.5 [facility] Comment on above: Performed By: #### P RO, APTT, FIB, PLT #### [place] [address] RBC 4.20 10 6/mcL Low 4.50-6.00 [facility] Comment on above: Performed By: #### P RO, APTT, FIB, PLT #### [place] [address] WBC 9.3 10 3/mcL Normal 4.5-10.8 [facility] Comment on above: Performed By: #### P RO, APTT, FIB, PLT #### [place] [address] LABORATORYOrdered By: SYSTEM SYSTEM on 08-19-2024 Basophils (Bld) [#/Vol] 0.0 103/mcL Normal 0.0 - 0.3 10^3/mcL [facility] Workflow SS Basophils/100 WBC (Bld) 0.3 % Normal 0.0 - 2.5 % Workflow SS Eosinophils (Bld) [#/Vol] 0.0 103/mcL Normal 0.0 - 0.7 10^3/mcL [facility] Workflow SS Eosinophils/100 WBC (Bld) 0.0 % Normal 0.0 - 6.0 % AH Workflow SS Erythrocyte distribution width (RBC) [Ratio] 14.4 % Normal 11.5 - 15.5 % AH Workflow SS Hematocrit (Bld) [Volume fraction] 39.4 % Low 40.0 - 52.0 % AH Workflow SS Hemoglobin (Bld) [Mass/Vol] 13.5 G/dL Normal 13.0 - 17.5 G/dL [facility] Workflow SS Lymphocytes (Bld) [#/Vol] 0.8 103/mcL Low 0.9 - 4.3 10^3/mcL Workflow SS Lymphocytes/100 WBC (Bld) 8.0 % Low 20.0 - 40.0 % AH Workflow SS MCH (RBC) [Entitic mass] 32.0 pg Normal 27.0 - 33.0 pg Workflow SS MCHC 34.2 G/dL Normal 32.0 - 36.0 G/dL [facility] Workflow SS MCV (RBC) [Entitic vol] 93.6 fL Normal 81.0 - 100.0 fL AH Workflow SS Monocytes (Bld) [#/Vol] 0.6 103/mcL Normal 0.1 - 1.4 10^3/mcL Workflow SS Monocytes/100 WBC (Bld) 6.3 % Normal 2.0 - 13.0 % AH Workflow SS Neutrophils (Bld) [#/Vol] 8.0 103/mcL Normal 2.3 - 8.1 10^3/mcL Workflow SS Neutrophils/100 WBC (Bld) 85.4 % High 50.0 - 75.0 % Workflow SS Platelet mean volume (Bld) [Entitic vol] 7.0 fL Normal 6.4 - 10.5 fL AH Workflow SS Platelets (Bld) [#/Vol] 242 103/mcL Normal 150 - 450 10^3/mcL Workflow SS RBC (Bld) [#/Vol] 4.20 106/mcL Low 4.50 - 6.0 0 10^6/mcL Workflow SS WBC (Bld) [#/Vol] 9.3 103/mcL Normal 4.5 - 10.8 10^3/mcL Workflow SS APTTon 08-18-2024 aPTT Coag (Bld) [Time] 32.7 s Normal 25.0-35.0 [facility] MAIN Comment on above: Result Comment: For Heparin anticoagulation therapy, the recommended therapeutic range is: 54-77 seconds (APTT Correlation with Anti-Xa therapeutic range of 0.3-0.7 units/ml). PLEASE REFERENCE THE PHARMACY PROTOCOL FOR DOSING. Performed By: #### C VFLURV #### [address] [address] FIBon 08-18-2024 Fibrinogen 540 mg/dL Normal 250-560 [facility] Comment on above: Performed By: #### C VFLURV #### [facility] [address] [place] [id number] LABORATORYOrdered By: SYSTEM SYSTEM on 08-18-2024 aPTT Coag (Bld) [Time] 32.7 s Normal 25.0 - 35.0 seconds [facility] Comment on above: Interpretive Data: F or Heparin anticoagulation therapy, the recommended therapeutic range is: 54-77 seconds (APTT Correlation with Anti-Xa therapeutic range of 0.3-0.7 units/ml). PLEASE REFERENCE THE PHARMACY PROTOCOL FOR DOSING. Fibrinogen 540 mg/dL Normal 250 - 560 mg/dL HemMAub Platelets (Bld) [#/Vol] 269 103/mcL Normal 150 - 450 10^3/mcL Workflow PT Coag (PPP) [Time] 10.8 s Normal 9.0 - 1 4.4 [facility] Comment on above: Interpretive Data: E ffective 04/07/08, Protime results may be affected by some antibiotics (i.e. Ciprofloxacin, Azithromycin, Bactrim) which may potentiate the action of oral anticoagulants, with further increases in Protime/INR. PT International Ratio 0.9 ratio Invalid Interpretation Code [facility] Comment on above: Interpretive Data: T stanislaw [employer] (CHEST, 1992, 102:[id number]) recommended therapeutic range for oral anticoagulant therapy is: LOW RISK: Prophylaxis of venous thrombosis INR: 2.0-3.0 Treatment of pulmonary embolism 2.0-3.0 Prevention of systemic embolism 2.0-3.0 HIGH RISK: Mechanical prosthetic valves 2.5-3.5 PLTon 08-18-2024 Platelet 269 10 3/mcL Normal 150-450 [facility] MAIN Comment on above: Performed By: #### C VFLURV #### [address] [address] PROon 08-18-2024 INR Coag (PPP) [Relative time] 0.9 {INR} Normal [facility] Comment on above: Result Comment: [employer] (CHEST, 1991, 102:[id number]) recommended therapeutic range for oral anticoagulant therapy is: LOW RISK: Prophylaxis of venous thrombosis INR: 2.0-3.0 Treatment of pulmonary embolism 2.0-3.0 Prevention of systemic embolism 2.0-3.0 HIGH RISK: Mechanical prosthetic valves 2.5-3.5 Performed By: #### C VFLURV #### [address] [address] PT Coag (PPP) [Time] 10.8 s Normal 9.0-14.4 [facility] MAIN Comment on above: Result Comment: Effe ctive 04/07/08, Protime results may be affected by some antibiotics (i.e. Ciprofloxacin, Azithromycin, Bactrim) which may potentiate the action of oral anticoagulants, with further increases in Protime/INR. Performed By: #### C VFLURV #### [facility] [address] [place] [id number] XR FLUORO > 2 HRS TECH TIMEo n 08-18-2024 XR FLUORO > 2 HRS TECH TIME ORIGINAL EXAMINATION: SPOT FLUOROSCOPIC IMAGES 08/18/2024 5:23 pm TECHNIQUE: Fluoroscopy was provided by the radiology department for procedure. Radiologist was not present during examination. FLUOROSCOPY DOSE AND TYPE: Radiation Exposure Index: Referenced air kerma, 0.993 mGy COMPARISON: None HISTORY: ORDERING SYSTEM PROVIDED HISTORY: Reason for Exam: ACDF C3-4-5-6-7 Intraprocedural imaging. FINDINGS: Spot intraoperative images are obtained demonstrating ACDF of the lower cervical spine. IMPRESSION: Intraprocedural fluoroscopic spot images as above. See separate procedure report for more information. I have personally reviewed the images of this examination and agree with the resident's findings and interpretation. Interpreted by: David Lundy Preliminary Report By: Pedro Luis Sullivan Electronically signed By David Lundy Dictated Date: 08/18/2024 6:25:24 PM Prelim Date: 08/18/2024 6:26:25 PM Sign Date: 08/18/2024 6:39:29 PM Ordering Provider: MANDO FISCHER [facility] LEAH Carlson 08-06-2024 Cotinine Lvl <1.0 [facility] MAIN Comment on above: Result Comment: This test was developed and its performance characteristics determined by [facility]. It has not been cleared or approved by the Food and Drug Administration. Cotinine levels greater than 20.0 are consistent with the use of tobacco or tobacco cessation products. Performed At: [address] [place] [id number] Myles Szymanski MD Ph:[phone] Performed By: #### P RO, APTT, FIB, PLT #### [address] [address] Nicotine Lvl <1.0 [facility] MAIN Comment on above: Result Comment: This test was developed and its performance characteristics determined by [facility]. It has not been cleared or approved by the Food and Drug Administration. Nicotine levels greater than 2.0 are consistent with the use of tobacco or tobacco cessation products. Performed By: #### P RO, APTT, FIB, PLT #### [address] [address] .GFRon 08-04-2024 GFR Non- >60 [facility] MAIN Comment on above: Result Comment: GFR Population mean for , Non- Americans Ages 20-29 = 116 mL/min/1.73 sq.m. Ages 30-39 = 107 mL/min/1.73 sq.m. Ages 40-49 = 99 mL/min/1.73 sq.m. Ages 50-59 = 93 mL/min/1.73 sq.m. Ages 60-69 = 85 mL/min/1.73 sq.m. Ages 70+ = 75 mL/min/1.73 sq.m. Chronic Kidney Disease: Less than 60 mL/min/1.73 square meters End Stage Renal Disease: Less than 15 mL/min/1.73 square meters Performed By: #### C VFLURV #### [address] [address] GFR >60 [facility] MAIN Comment on above: Result Comment: GFR Population mean for , Non- Americans Ages 20-29 = 116 mL/min/1.73 sq.m. Ages 30-39 = 107 mL/min/1.73 sq.m. Ages 40-49 = 99 mL/min/1.73 sq.m. Ages 50-59 = 93 mL/min/1.73 sq.m. Ages 60-69 = 85 mL/min/1.73 sq.m. Ages 70+ = 75 mL/min/1.73 sq.m. Chronic Kidney Disease: Less than 60 mL/min/1.73 square meters End Stage Renal Disease: Less than 15 mL/min/1.73 square meters Performed By: #### C VFLURV #### [place] [address] .Manual Diffon 08-04-2024 Basophil %, Manual 0.0 % Normal 0.0-2.5 [facility] MAIN Comment on above: Performed By: #### C VFLURV #### [place] [address] Basophil, Abs Manual 0.0 10 3/mcL Normal 0.0-0.3 [facility] MAIN Comment on above: Performed By: #### C VFLURV #### [place] [address] Eosinophil %, Manual 0.0 % Normal 0.0-6.0 [facility] MAIN Comment on above: Performed By: #### C VFLURV #### [place] [address] Eosinophil, Abs Manual 0.0 10 3/mcL Normal 0.0-0.7 [facility] MAIN Comment on above: Performed By: #### C VFLURV #### [place] [address] Lymphocyte %, Manual 18.0 % Low 20.0-40.0 [facility] MAIN Comment on above: Performed By: #### C VFLURV #### [place] [address] Lymphocyte, Abs Manual 1.2 10 3/mcL Normal 0.9-4.3 [facility] MA[facility] Comment on above: Performed By: #### C VFLURV #### [place] [address] Monocyte %, Manual 4.0 % Normal 2.0-13.0 [facility] MAIN Comment on above: Performed By: #### C VFLURV #### [place] [address] Monocyte, Abs Manual 0.3 10 3/mcL Normal 0.1-1.4 [facility] MAIN Comment on above: Performed By: #### C VFLURV #### [place] [address] Neutrophil %, Manual 78.0 % High 50.0-75.0 [facility] MAIN Comment on above: Performed By: #### C VFLURV #### [place] [id number] Neutrophil, Abs Manual 5.1 10 3/mcL Normal 2.3-8.1 [facility] MAIN Comment on above: Performed By: #### C VFLURV #### [place] [address] Nucleated RBC 0.0 /100 WBC Normal [facility] MAIN Comment on above: Performed By: #### C VFLURV #### [place] [address] [facility] Platelet Estimate Normal Normal [facility] MAIN Comment on above: Performed By: #### C VFLURV #### [place] [address] RBC morphology finding Nom (Bld) Normal Normal [facility] MAIN Comment on above: Performed By: #### C VFLURV #### [address] 08-04-2024 BUN/Creatinine Ratio 14.4 ratio Normal 10.0-22.0 [facility] MAIN Comment on above: Performed By: #### C VFLURV #### [place] [address] Calcium [Mass/Vol] 9.5 mg/dL Normal 8.7-10.4 [facility] MAIN Comment on above: Performed By: #### C VFLURV #### [place] [id number] Chloride [Moles/Vol] 106 mmol/L Normal 98-110 [facility] MAIN Comment on above: Performed By: #### C VFLURV #### [place] [id number] CO2 [Moles/Vol] 32 mmol/L Normal 22-32 [facility] MA[facility] Comment on above: Performed By: #### C VFLURV #### [place] [id number] Creatinine [Mass/Vol] 0.97 mg/dL Normal 0.60-1.40 [facility] MAIN Comment on above: Result Comment: Test ing performed on Nobl analyzer using enzymatic creatinine methodology. Performed By: #### C VFLURV #### [place] [id number] Electrolyte Balance 6.0 mEq/L Normal 4.0-15.0 [facility] MAIN Comment on above: Performed By: #### C VFLURV #### [place] [id number] Glucose [Mass/Vol] 86 mg/dL Normal 82-115 [facility] MAIN Comment on above: Performed By: #### C VFLURV #### [place] [address] Potassium [Moles/Vol] 4.5 mmol/L Normal 3.5-5.0 [facility] MAIN Comment on above: Performed By: #### C VFLURV #### [place] [id number] Sodium [Moles/Vol] 144 mmol/L Normal 136-145 [facility] MAIN Comment on above: Performed By: #### C VFLURV #### [place] [address] Urea nitrogen [Mass/Vol] 14.0 mg/dL Normal 8.0-22.0 [facility] MAIN Comment on above: Performed By: #### C VFLURV #### [place] [id number] CBCon 08-04-2024 Erythrocyte distribution width (RBC) [Ratio] 14.3 % Normal 11.5-15.5 [facility] MAIN Comment on above: Performed By: #### C VFLURV #### [place] [id number] Hematocrit (Bld) [Volume fraction] 43.5 % Normal 40.0-52.0 [facility] MAIN Comment on above: Performed By: #### C VFLURV #### [place] [id number] Hgb 14.5 G/dL Normal 13.0-17.5 [facility] MAIN Comment on above: Performed By: #### C VFLURV #### [place] [address] MCH (RBC) [Entitic mass] 31.8 pg Normal 27.0-33.0 [facility] MAIN Comment on above: Performed By: #### C VFLURV #### [place] [address] MCHC 33.4 G/dL Normal 32.0-36.0 [facility] MAIN Comment on above: Performed By: #### C VFLURV #### [place] [address] MCV (RBC) [Entitic vol] 95.3 fL Normal 81.0-100.0 [facility] MAIN Comment on above: Performed By: #### C VFLURV #### [place] [address] Platelet 243 10 3/mcL Normal 150-450 [facility] MAIN Comment on above: Performed By: #### C VFLURV #### [place] [address] Platelet mean volume (Bld) [Entitic vol] 6.8 fL Normal 6.4-10.5 [facility] MAIN Comment on above: Performed By: #### C VFLURV #### [place] [address] RBC 4.56 10 6/mcL Normal 4.50-6.00 [facility] MA[facility] Comment on above: Performed By: #### C VFLURV #### [place] [address] WBC 6.6 10 3/mcL Normal 4.5-10.8 [facility] MA[facility] Comment on above: Performed By: #### C VFLURV #### [place] [address] LABORATORYOrdered By: SYSTEM SYSTEM on 08-04-2024 Basophils (Bld) [#/Vol] 0.0 103/mcL Normal 0.0 - 0.3 10^3/mcL AH Workflow SS Basophils/100 WBC (Bld) 0.0 % Normal 0.0 - 2.5 % AH Workflow SS Calcium [Mass/Vol] 9.5 mg/dL Normal 8.7 - 10. 4 mg/dL ADM SS Chloride [Moles/Vol] 106 mmol/L Normal 98 - 11 0 mEq/L ADM SS CO2 [Moles/Vol] 32 mmol/L Normal 22 - 32 mEq/L ADM SS Creatinine [Mass/Vol] 0.97 mg/dL Normal 0.60 - 1.40 mg/dL ADM SS Comment on above: Interpretive Data: T esting performed on Nobl analyzer using enzymatic creatinine methodology. Electrolyte Balance 6.0 mEq/L Normal 4.0 - 15 .0 mEq/L ADM SS Eosinophils (Bld) [#/Vol] 0.0 103/mcL Normal 0.0 - 0.7 10^3/mcL Workflow SS Eosinophils/100 WBC (Bld) 0.0 % Normal 0.0 - 6.0 % Workflow SS Erythrocyte distribution width (RBC) [Ratio] 14.3 % Normal 11.5 - 15.5 % Workflow SS GFR/1.73 sq M.predicted among blacks MDRD (S/P/Bld) [Vol rate/Area] ml/min/1.73sqm Invalid Interpretation Code [facility] S Comment on above: Interpretive Data: GFR Population mean for , Non- Americans Ages 20-29 = 116 mL/min/1.73 sq.m. Ages 30-39 = 107 mL/min/1.73 sq.m. Ages 40-49 = 99 mL/min/1.73 sq.m. Ages 50-59 = 93 mL/min/1.73 sq.m. Ages 60-69 = 85 mL/min/1.73 sq.m. Ages 70+ = 75 mL/min/1.73 sq.m. Chronic Kidney Disease: Less than 60 mL/min/1.73 square meters End Stage Renal Disease: Less than 15 mL/min/1.73 square meters GFR/1.73 sq M.predicted among non-blacks MDRD (S/P/Bld) [Vol rate/Area] ml/min/1.73sqm Invalid Interpretation Code [facility] S Comment on above: Interpretive Data: GFR Population mean for , Non- Americans Ages 20-29 = 116 mL/min/1.73 sq.m. Ages 30-39 = 107 mL/min/1.73 sq.m. Ages 40-49 = 99 mL/min/1.73 sq.m. Ages 50-59 = 93 mL/min/1.73 sq.m. Ages 60-69 = 85 mL/min/1.73 sq.m. Ages 70+ = 75 mL/min/1.73 sq.m. Chronic Kidney Disease: Less than 60 mL/min/1.73 square meters End Stage Renal Disease: Less than 15 mL/min/1.73 square meters Glucose [Mass/Vol] 86 mg/dL Normal 82 - 115 mg/dL AH ADM SS Hematocrit (Bld) [Volume fraction] 43.5 % Normal 40.0 - 52.0 % AH Workflow SS Hemoglobin (Bld) [Mass/Vol] 14.5 G/dL Normal 13.0 - 17.5 G/dL AH Workflow SS Lymphocytes (Bld) [#/Vol] 1.2 103/mcL Normal 0.9 - 4.3 10^3/mcL AH Workflow SS Lymphocytes/100 WBC (Bld) 18.0 % Low 20.0 - 40.0 % AH Workflow SS MCH (RBC) [Entitic mass] 31.8 pg Normal 27.0 - 33.0 pg AH Workflow SS MCHC 33.4 G/dL Normal 32.0 - 36.0 G/dL AH Workflow SS MCV (RBC) [Entitic vol] 95.3 fL Normal 81.0 - 100.0 fL AH Workflow SS Monocytes (Bld) [#/Vol] 0.3 103/mcL Normal 0.1 - 1.4 10^3/mcL AH Workflow SS Monocytes/100 WBC (Bld) 4.0 % Normal 2.0 - 13.0 % AH Workflow SS Neutrophils (Bld) [#/Vol] 5.1 103/mcL Normal 2.3 - 8.1 10^3/mcL AH Workflow SS Neutrophils/100 WBC (Bld) 78.0 % High 50.0 - 75.0 % AH Workflow SS Nucleated RBC 0.0 /100 WBC Invalid Interpretation Code AH Workflow SS Platelet mean volume (Bld) [Entitic vol] 6.8 fL Normal 6.4 - 10.5 fL AH Workflow SS Platelets (Bld) [#/Vol] 243 103/mcL Normal 150 - 450 10^3/mcL AH Workflow SS Platelets LM Ql (Bld) Normal *NA* (08/04/24 9:38 AM) Invalid Interpretation Code AH Workflow SS Potassium [Moles/Vol] 4.5 mmol/L Normal 3.5 - 5.0 mEq/L AH ADM SS RBC (Bld) [#/Vol] 4.56 106/mcL Normal 4.50 - 6.0 0 10^6/mcL AH Workflow SS RBC morphology finding Nom (Bld) Normal *NA* (08/04/24 9:38 AM) Invalid Interpretation Code AH Workflow SS Sodium [Moles/Vol] 144 mmol/L Normal 136 - 145 mEq/L ADM SS Urea nitrogen [Mass/Vol] 14.0 mg/dL Normal 8.0 - 22.0 mg/dL ADM SS Urea nitrogen/Creatinine [Mass ratio] 14.4 ratio Normal 10.0 - 22.0 ratio ADM SS WBC (Bld) [#/Vol] 6.6 103/mcL Normal 4.5 - 10.8 10^3/mcL Workflow SS Absolute lymphocyte countOrd ered By: Alexey Quinn on 02-04-2024 Lymphocytes Auto (Unsp spec) [#/Vol] 3.67 10*3/uL 0.83-4.51 [facility] Activated partial thrombopla stin time (aPTT) in platelet poor plasma by coagulation aOrdered By: Alexey Quinn on 02-04-2024 aPTT Coag (PPP) [Time] 28.3 s 24.1-36.2 [facility] Automated lymphocyte count a s percentage of total leukocytesOrdered By: Alexey Quinn on 02-04-2024 Lymphocytes/100 WBC Auto (Unsp spec) 43.0 % 19-41 [facility] Basophil percentageOrdered B y: Alexey Quinn on 02-04-2024 Basophils/100 WBC (Bld) 1.5 % 0-1 [facility] Eosinophils/100 WBC (Bld) 3.2 % 0-5 [facility] Hemoglobin (Bld) [Mass/Vol] 15.5 g/dL 13.0-16.5 [facility] Monocytes/100 WBC (Bld) 9.1 % 0-10 [facility] Neutrophils (Bld) [#/Vol] 3.4 10*3/uL 2.0-7.7 [facility] Neutrophils/100 WBC (Bld) 40.2 % 47-70 [facility] WBC (Bld) [#/Vol] 8.5 10*3/uL 4.4-11.0 [facility] Determination of erythrocyte mean corpuscular volume (MCV)Ordered By: Alexey Quinn on 02-04-2024 MCV (RBC) [Entitic vol] 93.1 fL 80-94 [facility] Erythrocyte distribution wid th ratioOrdered By: Alexey Quinn on 02-04-2024 Erythrocyte distribution width (RBC) [Ratio] 12.7 % 11.6-14.6 [facility] Erythrocyte distribution wid th standard deviationOrdered By: Alexey Quinn on 02-04-2024 Erythrocyte distribution width (RBC) [Entitic vol] 43.7 fL 35.1-43.9 [facility] Hematocrit Auto (Bld) [Volum e fraction]Ordered By: Alexey Quinn on 02-04-2024 Hematocrit (Bld) [Volume fraction] 47.0 % 40-54 [facility] Immature granulocytes/100 WB C Auto (Bld)Ordered By: Alexey Quinn on 02-04-2024 Immature granulocytes/100 WBC (Bld) 3.000 % 0.0-0.9 [facility] Comment on above: IG% - Immature Granu locytes (promyelocytes, myelocytes and metamyelocytes) > 1% indicates that a LEFT SHIFT is Present. Laboratory - CoagulationOrde red By: Alexey Quinn on 02-04-2024 INR Coag (Bld) [Relative time] 1.0 {INR} [facility] PT Coag (PPP) [Time] 13.4 s 11.7-14.9 [facility] Laboratory - Hematology and Cell countsOrdered By: Alexey Quinn on 02-04-2024 MCH (RBC) [Entitic mass] 30.7 pg 27.0-32.0 [facility] MCHC (RBC) [Mass/Vol] 33.0 g/dL 32-36 [facility] Nucleated RBC/100 WBC (Bld) [Ratio] 0 % 0-5 [facility] Platelet mean volume (Bld) [Entitic vol] 9.1 fL 6.2-12.0 [facility] Platelets (Bld) [#/Vol] 333 10*3/uL 150-450 [facility] RBC Auto (Bld) [#/Vol]Ordere d By: Alexey Quinn on 02-04-2024 RBC (Bld) [#/Vol] 5.05 10*6/uL 4.6-6.2 [facility] MR Brain WO contraston 11-12 IMPRESSION: No acute intracranial pathology. Mild chronic ischemic gliotic and involutional changes. Pie Filling Mixer: PSCB Transcribe Date/Time: Nov 12 2023 4:01P Dictated by : HUNTER HAZEL MD This examination was interpreted and the report reviewed and electronically signed by: HUNTER HAZEL MD on Nov 12 2023 4:03PM EST [facility] * * *Final Report* * * DATE OF EXAM: Nov 12 2023 3:49PM [facility] 0294 - MRI BRAIN WO IVCON / PROCEDURE REASON: multiple diagnoses * * * * Physician Interpretation * * * * EXAMINATION: MRI BRAIN WO IVCON CLINICAL HISTORY: Strokelike symptoms, left-sided weakness TECHNIQUE: Routine noncontrast MRI protocol including diffusion images. MQ: [id number] COMPARISON: None. RESULT: Acute Change: There is no evidence of restricted diffusion to suggest an acute infarct. Hemorrhage: No evidence of prior parenchymal hemorrhage on the gradient echo images. Mass Lesion/ Mass Effect: No evidence of an intracranial mass or extra-axial fluid collection. No significant mass effect. Chronic Change: Scattered areas of T2 prolongation involving the supratentorial and infratentorial brain are nonspecific, and likely sequela of chronic microangiopathic ischemic change. Parenchyma: Mild diffuse cerebral volume loss. Ventricles: Normal caliber and morphology. Skull Base: Hypothalamic and pituitary region are grossly normal. Craniocervical junction is normal. No significant marrow replacement process. Vasculature: Major intracranial arterial structures, and dural venous sinuses show typical flow void, suggesting patency by spin echo criteria. Other: The visualized paranasal sinuses and mastoid air cells are clear. The orbits and extracranial soft tissues are unremarkable. [facility] Provider, Katia Stark - 11/12/2023 * * *Final Report* * * DATE OF EXAM: Nov 12 2023 3:49PM [facility] 0294 - MRI BRAIN WO IVCON / PROCEDURE REASON: multiple diagnoses * * * * Physician Interpretation * * * * EXAMINATION: MRI BRAIN WO IVCON CLINICAL HISTORY: Strokelike symptoms, left-sided weakness TECHNIQUE: Routine noncontrast MRI protocol including diffusion images. MQ: [id number]_[id number] COMPARISON: None. RESULT: Acute Change: There is no evidence of restricted diffusion to suggest an acute infarct. Hemorrhage: No evidence of prior parenchymal hemorrhage on the gradient echo images. Mass Lesion/ Mass Effect: No evidence of an intracranial mass or extra-axial fluid collection. No significant mass effect. Chronic Change: Scattered areas of T2 prolongation involving the supratentorial and infratentorial brain are nonspecific, and likely sequela of chronic microangiopathic ischemic change. Parenchyma: Mild diffuse cerebral volume loss. Ventricles: Normal caliber and morphology. Skull Base: Hypothalamic and pituitary region are grossly normal. Craniocervical junction is normal. No significant marrow replacement process. Vasculature: Major intracranial arterial structures, and dural venous sinuses show typical flow void, suggesting patency by spin echo criteria. Other: The visualized paranasal sinuses and mastoid air cells are clear. The orbits and extracranial soft tissues are unremarkable. IMPRESSION IMPRESSION: No acute intracranial pathology. Mild chronic ischemic gliotic and involutional changes. Pie Filling Mixer: STEVE Transcribe Date/Time: Nov 12 2023 4:01P Dictated by : HUNTER HAZEL MD This examination was interpreted and the report reviewed and electronically signed by: HUNTER HAZEL MD on Nov 12 2023 4:03PM [facility] MR Brain WO contrastOrdered By: [facility] Provider on 11-12-2023 [facility] MR Cervical spine WO contras ton 11-12-2023 * * *Final Report* * * DATE OF EXAM: Nov 12 2023 3:49PM [facility] 0297 - MRI CERVICAL SPINE WO IVCON / PROCEDURE REASON: multiple diagnoses * * * * Physician Interpretation * * * * EXAMINATION: MRI CERVICAL SPINE WO IVCON, MRI LUMBAR SPINE WO IVCON CLINICAL HISTORY: Remote lumbar surgery. Chronic lower extremity numbness and weakness with apparent subacute left-sided weakness. Left upper extremity weakness and falls. TECHNIQUE: Routine cervical and lumbosacral spine MR protocol without gadolinium. MQ: [id number] COMPARISON: None. RESULT: CERVICAL: Counting reference: Craniocervical junction. Anatomic Variants: None. Localizer images: Non-diagnostic. Alignment: Minimal spondylolisthesis at C4-5. Straightening of normal cervical lordosis otherwise. Moderate disc space narrowing is noted at C3-4 and C6-7. There is relative narrowing of the canal and foramina on a developmental basis. Craniocervical junction: Alignment at the craniocervical junction is within normal limits. Cord: Severe cord compression at C3-4 and C6-7 with mild patchy hyperintensity in the cord at each of these 2 levels on T2 and IR suggesting compressive myelopathy. Small patchy focus of hyperintensity is also noted at the level of the C5-6 disc space which now appears to be fused and may also reflect the chronic sequelae of prior severe cord compression. Bone marrow signal/fracture: No evidence of pathologic marrow replacement. Suspected bony fusion of the C5 and C6 vertebral bodies and fusion of the right lateral masses of C4 on C5. No evidence of prior fracture. Cervical soft tissues: The paraspinal soft tissues are within normal limits. C2-C3: Small shallow central disc protrusion with no impact on the adjacent spinal cord. Facet and uncinate process hypertrophy cause mild to moderate left foraminal stenosis. Right neural foramen is patent. C3-C4: Prominent disc osteophyte complex which is eccentric to the right of midline. When combined with dorsal ligamentous hypertrophy, these findings cause severe cord compression. Facet and uncinate process hypertrophy cause moderate bilateral foraminal stenosis. C4-C5: Minimal spondylolisthesis. No impact on the adjacent spinal cord. Facet degenerative changes cause mild to moderate right foraminal stenosis. Left neural foramen is patent. C5-C6: Minimal bony hypertrophic changes which may relate to prior anterior cervical discectomy and fusion procedure at abuts the ventral surface of the cord without significant cord compression. Facet and uncinate process hypertrophy cause severe left and [id number] right foraminal stenosis. C6-C7: Mild disc osteophyte complex which is eccentric to the right of midline. When combined with dorsal ligamentous hypertrophy, these findings cause moderate cord compression. Facet and uncinate process hypertrophy cause mild to moderate right and moderate left foraminal stenosis. C7-T1: Minimal disc bulging. No impact on the spinal cord. Neural foramina remain patent. The visualized upper thoracic spinal canal and foramina are patent. LUMBAR: Counting reference: Craniocervical and lumbosacral junctions For the purposes of this report, L4-5 is considered the level of the iliac crest and assume there are 5 lumbar-type vertebrae. Anatomic variant: None. Localizer images: No additional findings. Alignment: Alignment is anatomic. Mild disc space narrowing is noted throughout the visualized spine with sparing of the L3-4 disc space level. There is relative narrowing of the canal and foramina on a developmental basis. Bone marrow signal/fracture: No evidence of pathologic marrow infiltration. Small laminotomy is noted at the L5 level. Conus: The conus is within normal limits of signal intensity and morphology. No clear evidence of arachnoiditis. Paraspinal soft tissues: Paraspinal soft tissues are within normal limits. Lower thoracic spine: Visualized lower thoracic canal and foramina are patent. L1-L2: Minimal disc bulging and mild facet degenerative changes causing only mild impingement of the thecal sac. Neural foramina remain patent. L2-L3: Mild disc osteophyte complex, facet degenerative changes and developmentally short pedicles cause moderate canal stenosis. Facet degenerative changes account for mild impingement of the neural foramina. L3-L4: Canal and foramina are patent L4-L5: Facet degenerative changes and developmentally short pedicles cause mild canal and mild bilateral foraminal stenosis. L5-S1: Mild facet degenerative change without significant canal or foraminal stenosis. Sacrum and iliac wings: Small well-defined hypointense focus is noted in the right iliac bone on T1 and T2, likely representing a rony (more content not included)... [facility] Provider, [facility] - 11/12/2023 * * *Final Report* * * DATE OF EXAM: Nov 12 2023 3:49PM [facility] 0297 - MRI CERVICAL SPINE WO IVCON / PROCEDURE REASON: multiple diagnoses * * * * Physician Interpretation * * * * EXAMINATION: MRI CERVICAL SPINE WO IVCON, MRI LUMBAR SPINE WO IVCON CLINICAL HISTORY: Remote lumbar surgery. Chronic lower extremity numbness and weakness with apparent subacute left-sided weakness. Left upper extremity weakness and falls. TECHNIQUE: Routine cervical and lumbosacral spine MR protocol without gadolinium. MQ: [id number]_1 COMPARISON: None. RESULT: CERVICAL: Counting reference: Craniocervical junction. Anatomic Variants: None. Localizer images: Non-diagnostic. Alignment: Minimal spondylolisthesis at C4-5. Straightening of normal cervical lordosis otherwise. Moderate disc space narrowing is noted at C3-4 and C6-7. There is relative narrowing of the canal and foramina on a developmental basis. Craniocervical junction: Alignment at the craniocervical junction is within normal limits. Cord: Severe cord compression at C3-4 and C6-7 with mild patchy hyperintensity in the cord at each of these 2 levels on T2 and IR suggesting compressive myelopathy. Small patchy focus of hyperintensity is also noted at the level of the C5-6 disc space which now appears to be fused and may also reflect the chronic sequelae of prior severe cord compression. Bone marrow signal/fracture: No evidence of pathologic marrow replacement. Suspected bony fusion of the C5 and C6 vertebral bodies and fusion of the right lateral masses of C4 on C5. No evidence of prior fracture. Cervical soft tissues: The paraspinal soft tissues are within normal limits. C2-C3: Small shallow central disc protrusion with no impact on the adjacent spinal cord. Facet and uncinate process hypertrophy cause mild to moderate left foraminal stenosis. Right neural foramen is patent. C3-C4: Prominent disc osteophyte complex which is eccentric to the right of midline. When combined with dorsal ligamentous hypertrophy, these findings cause severe cord compression. Facet and uncinate process hypertrophy cause moderate bilateral foraminal stenosis. C4-C5: Minimal spondylolisthesis. No impact on the adjacent spinal cord. Facet degenerative changes cause mild to moderate right foraminal stenosis. Left neural foramen is patent. C5-C6: Minimal bony hypertrophic changes which may relate to prior anterior cervical discectomy and fusion procedure at abuts the ventral surface of the cord without significant cord compression. Facet and uncinate process hypertrophy cause severe left and wdvd-[id number] right foraminal stenosis. C6-C7: Mild disc osteophyte complex which is eccentric to the right of midline. When combined with dorsal ligamentous hypertrophy, these findings cause moderate cord compression. Facet and uncinate process hypertrophy cause mild to moderate right and moderate left foraminal stenosis. C7-T1: Minimal disc bulging. No impact on the spinal cord. Neural foramina remain patent. The visualized upper thoracic spinal canal and foramina are patent. LUMBAR: Counting reference: Craniocervical and lumbosacral junctions For the purposes of this report, L4-5 is considered the level of the iliac crest and assume there are 5 lumbar-type vertebrae. Anatomic variant: None. Localizer images: No additional findings. Alignment: Alignment is anatomic. Mild disc space narrowing is noted throughout the visualized spine with sparing of the L3-4 disc space level. There is relative narrowing of the canal and foramina on a developmental basis. Bone marrow signal/fracture: No evidence of pathologic marrow infiltration. Small laminotomy is noted at the L5 level. Conus: The conus is within normal limits of signal intensity and morphology. No clear evidence of arachnoiditis. Paraspinal soft tissues: Paraspinal soft tissues are within normal limits. Lower thoracic spine: Visualized lower thoracic canal and foramina are patent. L1-L2: Minimal disc bulging and mild facet degenerative changes causing only mild impingement of the thecal sac. Neural foramina remain patent. L2-L3: Mild disc osteophyte complex, facet degenerative changes and developmentally short pedicles cause moderate canal stenosis. Facet degenerative changes account for mild impingement of the neural foramina. L3-L4: Canal and foramina are patent L4-L5: Facet degenerative changes and developmentally short pedicles cause mild canal and mild bilateral foraminal stenosis. L5-S1: Mild facet degenerative change without significant canal or foraminal stenosis. Sacrum and iliac wings: Small well-defined hypointense focus is noted in the right iliac bone on T1 and T2, likely representing a bone island. IMPRESSION (more content not included)... [facility] MR Lumbar spine WO contrasto n 11-12-2023 * * *Final Report* * * DATE OF EXAM: Nov 12 2023 3:49PM [facility] 0303 - MRI LUMBAR SPINE WO IVCON / PROCEDURE REASON: multiple diagnoses * * * * Physician Interpretation * * * * EXAMINATION: MRI CERVICAL SPINE WO IVCON, MRI LUMBAR SPINE WO IVCON CLINICAL HISTORY: Remote lumbar surgery. Chronic lower extremity numbness and weakness with apparent subacute left-sided weakness. Left upper extremity weakness and falls. TECHNIQUE: Routine cervical and lumbosacral spine MR protocol without gadolinium. MQ: MRCLWO_1 COMPARISON: None. RESULT: CERVICAL: Counting reference: Craniocervical junction. Anatomic Variants: None. Localizer images: Non-diagnostic. Alignment: Minimal spondylolisthesis at C4-5. Straightening of normal cervical lordosis otherwise. Moderate disc space narrowing is noted at C3-4 and C6-7. There is relative narrowing of the canal and foramina on a developmental basis. Craniocervical junction: Alignment at the craniocervical junction is within normal limits. Cord: Severe cord compression at C3-4 and C6-7 with mild patchy hyperintensity in the cord at each of these 2 levels on T2 and IR suggesting compressive myelopathy. Small patchy focus of hyperintensity is also noted at the level of the C5-6 disc space which now appears to be fused and may also reflect the chronic sequelae of prior severe cord compression. Bone marrow signal/fracture: No evidence of pathologic marrow replacement. Suspected bony fusion of the C5 and C6 vertebral bodies and fusion of the right lateral masses of C4 on C5. No evidence of prior fracture. Cervical soft tissues: The paraspinal soft tissues are within normal limits. C2-C3: Small shallow central disc protrusion with no impact on the adjacent spinal cord. Facet and uncinate process hypertrophy cause mild to moderate left foraminal stenosis. Right neural foramen is patent. C3-C4: Prominent disc osteophyte complex which is eccentric to the right of midline. When combined with dorsal ligamentous hypertrophy, these findings cause severe cord compression. Facet and uncinate process hypertrophy cause moderate bilateral foraminal stenosis. C4-C5: Minimal spondylolisthesis. No impact on the adjacent spinal cord. Facet degenerative changes cause mild to moderate right foraminal stenosis. Left neural foramen is patent. C5-C6: Minimal bony hypertrophic changes which may relate to prior anterior cervical discectomy and fusion procedure at abuts the ventral surface of the cord without significant cord compression. Facet and uncinate process hypertrophy cause severe left and tmgu-ww-[id number] right foraminal stenosis. C6-C7: Mild disc osteophyte complex which is eccentric to the right of midline. When combined with dorsal ligamentous hypertrophy, these findings cause moderate cord compression. Facet and uncinate process hypertrophy cause mild to moderate right and moderate left foraminal stenosis. C7-T1: Minimal disc bulging. No impact on the spinal cord. Neural foramina remain patent. The visualized upper thoracic spinal canal and foramina are patent. LUMBAR: Counting reference: Craniocervical and lumbosacral junctions For the purposes of this report, L4-5 is considered the level of the iliac crest and assume there are 5 lumbar-type vertebrae. Anatomic variant: None. Localizer images: No additional findings. Alignment: Alignment is anatomic. Mild disc space narrowing is noted throughout the visualized spine with sparing of the L3-4 disc space level. There is relative narrowing of the canal and foramina on a developmental basis. Bone marrow signal/fracture: No evidence of pathologic marrow infiltration. Small laminotomy is noted at the L5 level. Conus: The conus is within normal limits of signal intensity and morphology. No clear evidence of arachnoiditis. Paraspinal soft tissues: Paraspinal soft tissues are within normal limits. Lower thoracic spine: Visualized lower thoracic canal and foramina are patent. L1-L2: Minimal disc bulging and mild facet degenerative changes causing only mild impingement of the thecal sac. Neural foramina remain patent. L2-L3: Mild disc osteophyte complex, facet degenerative changes and developmentally short pedicles cause moderate canal stenosis. Facet degenerative changes account for mild impingement of the neural foramina. L3-L4: Canal and foramina are patent L4-L5: Facet degenerative changes and developmentally short pedicles cause mild canal and mild bilateral foraminal stenosis. L5-S1: Mild facet degenerative change without significant canal or foraminal stenosis. Sacrum and iliac wings: Small well-defined hypointense focus is noted in the right iliac bone on T1 and T2, likely representing a bone (more content not included)... [facility] Provider, Katia ryan [place] - 11/12/2023 * * *Final Report* * * DATE OF EXAM: Nov 12 2023 3:49PM [facility] 0303 - MRI LUMBAR SPINE WO IVCON / PROCEDURE REASON: multiple diagnoses * * * * Physician Interpretation * * * * EXAMINATION: MRI CERVICAL SPINE WO IVCON, MRI LUMBAR SPINE WO IVCON CLINICAL HISTORY: Remote lumbar surgery. Chronic lower extremity numbness and weakness with apparent subacute left-sided weakness. Left upper extremity weakness and falls. TECHNIQUE: Routine cervical and lumbosacral spine MR protocol without gadolinium. MQ: MRCLWO_1 COMPARISON: None. RESULT: CERVICAL: Counting reference: Craniocervical junction. Anatomic Variants: None. Localizer images: Non-diagnostic. Alignment: Minimal spondylolisthesis at C4-5. Straightening of normal cervical lordosis otherwise. Moderate disc space narrowing is noted at C3-4 and C6-7. There is relative narrowing of the canal and foramina on a developmental basis. Craniocervical junction: Alignment at the craniocervical junction is within normal limits. Cord: Severe cord compression at C3-4 and C6-7 with mild patchy hyperintensity in the cord at each of these 2 levels on T2 and IR suggesting compressive myelopathy. Small patchy focus of hyperintensity is also noted at the level of the C5-6 disc space which now appears to be fused and may also reflect the chronic sequelae of prior severe cord compression. Bone marrow signal/fracture: No evidence of pathologic marrow replacement. Suspected bony fusion of the C5 and C6 vertebral bodies and fusion of the right lateral masses of C4 on C5. No evidence of prior fracture. Cervical soft tissues: The paraspinal soft tissues are within normal limits. C2-C3: Small shallow central disc protrusion with no impact on the adjacent spinal cord. Facet and uncinate process hypertrophy cause mild to moderate left foraminal stenosis. Right neural foramen is patent. C3-C4: Prominent disc osteophyte complex which is eccentric to the right of midline. When combined with dorsal ligamentous hypertrophy, these findings cause severe cord compression. Facet and uncinate process hypertrophy cause moderate bilateral foraminal stenosis. C4-C5: Minimal spondylolisthesis. No impact on the adjacent spinal cord. Facet degenerative changes cause mild to moderate right foraminal stenosis. Left neural foramen is patent. C5-C6: Minimal bony hypertrophic changes which may relate to prior anterior cervical discectomy and fusion procedure at abuts the ventral surface of the cord without significant cord compression. Facet and uncinate process hypertrophy cause severe left and hhkt-[id number] right foraminal stenosis. C6-C7: Mild disc osteophyte complex which is eccentric to the right of midline. When combined with dorsal ligamentous hypertrophy, these findings cause moderate cord compression. Facet and uncinate process hypertrophy cause mild to moderate right and moderate left foraminal stenosis. C7-T1: Minimal disc bulging. No impact on the spinal cord. Neural foramina remain patent. The visualized upper thoracic spinal canal and foramina are patent. LUMBAR: Counting reference: Craniocervical and lumbosacral junctions For the purposes of this report, L4-5 is considered the level of the iliac crest and assume there are 5 lumbar-type vertebrae. Anatomic variant: None. Localizer images: No additional findings. Alignment: Alignment is anatomic. Mild disc space narrowing is noted throughout the visualized spine with sparing of the L3-4 disc space level. There is relative narrowing of the canal and foramina on a developmental basis. Bone marrow signal/fracture: No evidence of pathologic marrow infiltration. Small laminotomy is noted at the L5 level. Conus: The conus is within normal limits of signal intensity and morphology. No clear evidence of arachnoiditis. Paraspinal soft tissues: Paraspinal soft tissues are within normal limits. Lower thoracic spine: Visualized lower thoracic canal and foramina are patent. L1-L2: Minimal disc bulging and mild facet degenerative changes causing only mild impingement of the thecal sac. Neural foramina remain patent. L2-L3: Mild disc osteophyte complex, facet degenerative changes and developmentally short pedicles cause moderate canal stenosis. Facet degenerative changes account for mild impingement of the neural foramina. L3-L4: Canal and foramina are patent L4-L5: Facet degenerative changes and developmentally short pedicles cause mild canal and mild bilateral foraminal stenosis. L5-S1: Mild facet degenerative change without significant canal or foraminal stenosis. Sacrum and iliac wings: Small well-defined hypointense focus is noted in the right iliac bone on T1 and T2, likely representing a bone island. IMPRESSION (more content not included)... [facility] MRI BRAIN WO IVCONon 024 MRI BRAIN WO IVCON * * *Final Report* * * DATE OF EXAM: Nov 12 2023 3:49PM [facility] 0294 - MRI BRAIN WO IVCON / PROCEDURE REASON: multiple diagnoses * * * * Physician Interpretation * * * * EXAMINATION: MRI BRAIN WO IVCON CLINICAL HISTORY: Strokelike symptoms, left-sided weakness TECHNIQUE: Routine noncontrast MRI protocol including diffusion images. MQ: MRBWO_2 COMPARISON: None. RESULT: Acute Change: There is no evidence of restricted diffusion to suggest an acute infarct. Hemorrhage: No evidence of prior parenchymal hemorrhage on the gradient echo images. Mass Lesion/ Mass Effect: No evidence of an intracranial mass or extra-axial fluid collection. No significant mass effect. Chronic Change: Scattered areas of T2 prolongation involving the supratentorial and infratentorial brain are nonspecific, and likely sequela of chronic microangiopathic ischemic change. Parenchyma: Mild diffuse cerebral volume loss. Ventricles: Normal caliber and morphology. Skull Base: Hypothalamic and pituitary region are grossly normal. Craniocervical junction is normal. No significant marrow replacement process. Vasculature: Major intracranial arterial structures, and dural venous sinuses show typical flow void, suggesting patency by spin echo criteria. Other: The visualized paranasal sinuses and mastoid air cells are clear. The orbits and extracranial soft tissues are unremarkable. IMPRESSION: No acute intracranial pathology. Mild chronic ischemic gliotic and involutional changes. Pie Filling Mixer: PSC[employer] Transcribe Date/Time: Nov 12 2023 4:01P Dictated by : HUNTER HAZEL MD This examination was interpreted and the report reviewed and electronically signed by: HUNTER HAZEL MD on Nov 12 2023 4:03PM EST [id number] Normal [facility] MRI CERVICAL SPINE WO IVCONo n 11-12-2023 MRI CERVICAL SPINE WO IVCON * * *Final Report* * * DATE OF EXAM: Nov 12 2023 3:49PM [facility] 0297 - MRI CERVICAL SPINE WO IVCON / PROCEDURE REASON: multiple diagnoses * * * * Physician Interpretation * * * * EXAMINATION: MRI CERVICAL SPINE WO IVCON, MRI LUMBAR SPINE WO IVCON CLINICAL HISTORY: Remote lumbar surgery. Chronic lower extremity numbness and weakness with apparent subacute left-sided weakness. Left upper extremity weakness and falls. TECHNIQUE: Routine cervical and lumbosacral spine MR protocol without gadolinium. MQ: MRCLWO_1 COMPARISON: None. RESULT: CERVICAL: Counting reference: Craniocervical junction. Anatomic Variants: None. Localizer images: Non-diagnostic. Alignment: Minimal spondylolisthesis at C4-5. Straightening of normal cervical lordosis otherwise. Moderate disc space narrowing is noted at C3-4 and C6-7. There is relative narrowing of the canal and foramina on a developmental basis. Craniocervical junction: Alignment at the craniocervical junction is within normal limits. Cord: Severe cord compression at C3-4 and C6-7 with mild patchy hyperintensity in the cord at each of these 2 levels on T2 and IR suggesting compressive myelopathy. Small patchy focus of hyperintensity is also noted at the level of the C5-6 disc space which now appears to be fused and may also reflect the chronic sequelae of prior severe cord compression. Bone marrow signal/fracture: No evidence of pathologic marrow replacement. Suspected bony fusion of the C5 and C6 vertebral bodies and fusion of the right lateral masses of C4 on C5. No evidence of prior fracture. Cervical soft tissues: The paraspinal soft tissues are within normal limits. C2-C3: Small shallow central disc protrusion with no impact on the adjacent spinal cord. Facet and uncinate process hypertrophy cause mild to moderate left foraminal stenosis. Right neural foramen is patent. C3-C4: Prominent disc osteophyte complex which is eccentric to the right of midline. When combined with dorsal ligamentous hypertrophy, these findings cause severe cord compression. Facet and uncinate process hypertrophy cause moderate bilateral foraminal stenosis. C4-C5: Minimal spondylolisthesis. No impact on the adjacent spinal cord. Facet degenerative changes cause mild to moderate right foraminal stenosis. Left neural foramen is patent. C5-C6: Minimal bony hypertrophic changes which may relate to prior anterior cervical discectomy and fusion procedure at abuts the ventral surface of the cord without significant cord compression. Facet and uncinate process hypertrophy cause severe left and dqdk-[id number] right foraminal stenosis. C6-C7: Mild disc osteophyte complex which is eccentric to the right of midline. When combined with dorsal ligamentous hypertrophy, these findings cause moderate cord compression. Facet and uncinate process hypertrophy cause mild to moderate right and moderate left foraminal stenosis. C7-T1: Minimal disc bulging. No impact on the spinal cord. Neural foramina remain patent. The visualized upper thoracic spinal canal and foramina are patent. LUMBAR: Counting reference: Craniocervical and lumbosacral junctions For the purposes of this report, L4-5 is considered the level of the iliac crest and assume there are 5 lumbar-type vertebrae. Anatomic variant: None. Localizer images: No additional findings. Alignment: Alignment is anatomic. Mild disc space narrowing is noted throughout the visualized spine with sparing of the L3-4 disc space level. There is relative narrowing of the canal and foramina on a developmental basis. Bone marrow signal/fracture: No evidence of pathologic marrow infiltration. Small laminotomy is noted at the L5 level. Conus: The conus is within normal limits of signal intensity and morphology. No clear evidence of arachnoiditis. Paraspinal soft tissues: Paraspinal soft tissues are within normal limits. Lower thoracic spine: Visualized lower thoracic canal and foramina are patent. L1-L2: Minimal disc bulging and mild facet degenerative changes causing only mild impingement of the thecal sac. Neural foramina remain patent. L2-L3: Mild disc osteophyte complex, facet degenerative changes and developmentally short pedicles cause moderate canal stenosis. Facet degenerative changes account for mild impingement of the neural foramina. L3-L4: Canal and foramina are patent L4-L5: Facet degenerative changes and developmentally short pedicles cause mild canal and mild bilateral foraminal stenosis. L5-S1: Mild facet degenerative change without significant canal or foraminal stenosis. Sacrum and iliac wings: Small well-defined hypointense focus is noted in the right iliac bone on T1 and T2, likely representing a bone island. IMPRESSION: Findings suspicious for prior anterior cervical discectomy and fusion procedure at C5-6 with localized myelomalacia at this same level. Degener (more content not included)... Normal [facility] MRI LUMBAR SPINE WO IVCONon 11-12-2023 MRI LUMBAR SPINE WO IVCON * * *Final Report* * * DATE OF EXAM: Nov 12 2023 3:49PM [facility] 0303 - MRI LUMBAR SPINE WO IVCON / PROCEDURE REASON: multiple diagnoses * * * * Physician Interpretation * * * * EXAMINATION: MRI CERVICAL SPINE WO IVCON, MRI LUMBAR SPINE WO IVCON CLINICAL HISTORY: Remote lumbar surgery. Chronic lower extremity numbness and weakness with apparent subacute left-sided weakness. Left upper extremity weakness and falls. TECHNIQUE: Routine cervical and lumbosacral spine MR protocol without gadolinium. MQ: [id number] COMPARISON: None. RESULT: CERVICAL: Counting reference: Craniocervical junction. Anatomic Variants: None. Localizer images: Non-diagnostic. Alignment: Minimal spondylolisthesis at C4-5. Straightening of normal cervical lordosis otherwise. Moderate disc space narrowing is noted at C3-4 and C6-7. There is relative narrowing of the canal and foramina on a developmental basis. Craniocervical junction: Alignment at the craniocervical junction is within normal limits. Cord: Severe cord compression at C3-4 and C6-7 with mild patchy hyperintensity in the cord at each of these 2 levels on T2 and IR suggesting compressive myelopathy. Small patchy focus of hyperintensity is also noted at the level of the C5-6 disc space which now appears to be fused and may also reflect the chronic sequelae of prior severe cord compression. Bone marrow signal/fracture: No evidence of pathologic marrow replacement. Suspected bony fusion of the C5 and C6 vertebral bodies and fusion of the right lateral masses of C4 on C5. No evidence of prior fracture. Cervical soft tissues: The paraspinal soft tissues are within normal limits. C2-C3: Small shallow central disc protrusion with no impact on the adjacent spinal cord. Facet and uncinate process hypertrophy cause mild to moderate left foraminal stenosis. Right neural foramen is patent. C3-C4: Prominent disc osteophyte complex which is eccentric to the right of midline. When combined with dorsal ligamentous hypertrophy, these findings cause severe cord compression. Facet and uncinate process hypertrophy cause moderate bilateral foraminal stenosis. C4-C5: Minimal spondylolisthesis. No impact on the adjacent spinal cord. Facet degenerative changes cause mild to moderate right foraminal stenosis. Left neural foramen is patent. C5-C6: Minimal bony hypertrophic changes which may relate to prior anterior cervical discectomy and fusion procedure at abuts the ventral surface of the cord without significant cord compression. Facet and uncinate process hypertrophy cause severe left and [id number] right foraminal stenosis. C6-C7: Mild disc osteophyte complex which is eccentric to the right of midline. When combined with dorsal ligamentous hypertrophy, these findings cause moderate cord compression. Facet and uncinate process hypertrophy cause mild to moderate right and moderate left foraminal stenosis. C7-T1: Minimal disc bulging. No impact on the spinal cord. Neural foramina remain patent. The visualized upper thoracic spinal canal and foramina are patent. LUMBAR: Counting reference: Craniocervical and lumbosacral junctions For the purposes of this report, L4-5 is considered the level of the iliac crest and assume there are 5 lumbar-type vertebrae. Anatomic variant: None. Localizer images: No additional findings. Alignment: Alignment is anatomic. Mild disc space narrowing is noted throughout the visualized spine with sparing of the L3-4 disc space level. There is relative narrowing of the canal and foramina on a developmental basis. Bone marrow signal/fracture: No evidence of pathologic marrow infiltration. Small laminotomy is noted at the L5 level. Conus: The conus is within normal limits of signal intensity and morphology. No clear evidence of arachnoiditis. Paraspinal soft tissues: Paraspinal soft tissues are within normal limits. Lower thoracic spine: Visualized lower thoracic canal and foramina are patent. L1-L2: Minimal disc bulging and mild facet degenerative changes causing only mild impingement of the thecal sac. Neural foramina remain patent. L2-L3: Mild disc osteophyte complex, facet degenerative changes and developmentally short pedicles cause moderate canal stenosis. Facet degenerative changes account for mild impingement of the neural foramina. L3-L4: Canal and foramina are patent L4-L5: Facet degenerative changes and developmentally short pedicles cause mild canal and mild bilateral foraminal stenosis. L5-S1: Mild facet degenerative change without significant canal or foraminal stenosis. Sacrum and iliac wings: Small well-defined hypointense focus is noted in the right iliac bone on T1 and T2, likely representing a bone island. IMPRESSION: Findings suspicious for prior anterior cervical discectomy and fusion procedure at C5-6 with localized myelomalacia at this same level. Degenerat (more content not included)... Normal [facility] No Panel Informationon 11-12 IMPRESSION: Findings suspicious for prior anterior cervical discectomy and fusion procedure at C5-6 with localized myelomalacia at this same level. Degenerative disc disease at C3-4 and C6-7 with severe and moderate cord compression, respectively, and localized myelomalacia at both levels suggesting compressive myelopathy. Multilevel cervical bony foraminal narrowing as detailed above. Suspected dorsal decompression procedure at L5-S1. Developmental lumbar canal stenosis with mild superimposed degenerative changes causing moderate L2-3 and mild L4-5 and L1-2 canal stenosis. Mild bony foraminal stenosis at L2-3 and L4-5 as outlined above. Cervical Anatomic Variant: None. Assume 7 cervical vertebrae with counting from the craniocervical junction. Anatomic Thoracic/Lumbar Variant: None. L4-5 is considered the level of the iliac crest and assume there are 5 lumbar-type vertebrae. Pie Filling Mixer: STEVE Transcribe Date/Time: Nov 12 2023 4:16P Dictated by : SCOTT PEREZ MD This examination was interpreted and the report reviewed and electronically signed by: SCOTT PEREZ MD on Nov 12 2023 4:33PM [facility] RADIOLOGY Radiology Study observation (narrative) Braden Rodriguez No Panel InformationOrdered By: Ccf Provider on 11-12-2023 [facility] CNOVon 10-24-2023 CNOV Office Visit (NEURMM ) SARTHAK PUTNAM JR ([id number]) 1955 M Date Time Provider Department 10/24/23 9:20 AM JL ANAYA JR During your visit today, we recorded the following information about you: Pulse Blood pressure Weight Height 81/minute 153/80 76 kg 1.753 m Seven Menjivar OCCA 10/24/2023 11:02 AM Signed 10/21/2023 PROMIS Global Health Physical Health Summary Physical health: Good Everyday physical activity, ability: Moderately Fatigue: Moderate Pain level: 3 General health: Good Social activities/roles, ability: Good Physical Health T-Score (Good) Physical Health Percentile PROMIS Global Health Mental Health Summary Quality of life: Good Mental health (mood,thinking): Good Social satisfaction: Good Emotional problems (anxious,depressed): Sometimes Mental Health T-Score (Good) Mental Health Percentile Percentiles provide an indication of how a patient's score ranks in relation to the [place] general population. > 31st percentile is within normal limits or better *< 31st percentile is at least ? SD worse than population, which may be clinically relevant < 16th percentile is at least 1 SD worse than population and warrants attention 10/21/2023 Sleep Apnea Probability Snores loudly: Yes Tired, fatigued or sleepy in daytime: No Stops breathing or choking/gasping during sleep: No High blood pressure: No Sleep Apnea Probability Score: 19 (Sleep study not recommended) Jl Anaya Jr., MD 10/24/2023 11:02 AM Signed 10/21/2023 PROMIS Global Health Physical Health Summary Physical health: Good Everyday physical activity, ability: Moderately Fatigue: Moderate Pain level: 3 General health: Good Social activities/roles, ability: Good Physical Health T-Score (Good) Physical Health Percentile PROMIS Global Health Mental Health Summary Quality of life: Good Mental health (mood,thinking): Good Social satisfaction: Good Emotional problems (anxious,depressed): Sometimes Mental Health T-Score (Good) Mental Health Percentile Percentiles provide an indication of how a patient's score ranks in relation to the [place] general population. > 31st percentile is within normal limits or better *< 31st percentile is at least ? SD worse than population, which may be clinically relevant < 16th percentile is at least 1 SD worse than population and warrants attention 10/21/2023 Sleep Apnea Probability Snores loudly: Yes Tired, fatigued or sleepy in daytime: No Stops breathing or choking/gasping during sleep: No High blood pressure: No Sleep Apnea Probability Score: 19 (Sleep study not recommended) NEW PATIENT (CONSULT) HISTORY AND PHYSICAL EXAM PRIMARY CARE PHYSICIAN: No primary care provider on file. REASON FOR CONSULT: Leg weakness, dizziness REFERRING PHYSICIAN: PCP - Dr. Scott Mejia CHIEF COMPLAINT: Leg weakness, Stroke like symptoms. Consultation requested by No ref. provider found for an opinion regarding chief complaint of Patient presents with: New Patient and my final recommendations will be communicated back to the requesting physician by way of shared medical record or letter via [place] mail. HISTORY OF PRESENT ILLNESS: Sarthak Putnam is a 68 year old male, Ht 175.3 cm (5' 9) BMI 24.74 kg/m2 with no medical records in [facility]. was seeing his PCP for leg weakness and numbness and was sent to [facility] for CT brain that reportedly showed 2 spots that might be strokes as well as an EMG/NCV. I have none of these records for review. Then was in [facility] on 10/12/22 where he had a biopsy for lung cancer resulting in collapsed lungs and had stroke at same time and almost and lost his left side. had a CT and MRI at the hospital and had all the symptoms of a stroke but nothing showed up on film. was referred prior to the episode at [facility] 2 weeks ago. Regarding other medical conditions has high cholesterol. States that the neurologist from [facility] on camera did not show stroke. Now on baby ASA. States in the hospital his L arm was drawn up and he could not hold it up. Regarding leg weakness, states from the hips down they tingle and feel cold. States also had XR of L spine as did [facility]. States they told him there was a pinched nerve in his lower back. Prior operation on the L spine in 1997 for ruptured disc. Ortho then told it was due to neck and did XR of the neck and told couple vertebrae that were fused together. States the weakness and numbness is 24/7. Pt denies DM or thyroid dz. No history of ETOH use. No known vitamin deficiency. No bowel or bladder incontinence. Going back to episode of stroke like symptoms 2 weeks ago, denies any facial symptoms, visual changes. L sdie deficits from stroke like episode persist. Pt has had recurrent fall at home as he states his RLE crosses into the back of his LLE - occurring for (more content not included)... Normal [facility] SARTHAK PUTNMA JR ([id number]) 1955 M Date Time Provider Department 10/24/23 JL ANAYA JR During your visit today, we recorded the following information about you: Sienna Kauffman LPN 10/24/2023 10:31 AM Signed Jl Anaya Jr., MD [facility] Neur Héctor Nurse I need all of this getache[place] records. 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 - ibuprofen (ADVIL ORAL) Take 200 mg by mouth four times daily. - chlorpheniramine maleate (ALLERGY 4-HOUR ORAL) Take 10 mg by mouth once daily. - pantoprazole sodium (PANTOPRAZOLE ORAL) Take 40 mg by mouth once daily. - aspirin 81 mg cap Take 81 mg by mouth once daily. - atorvastatin (LIPITOR) 40 mg tablet Take 40 mg by mouth once daily. - clopidogrel (PLAVIX) 75 mg tablet Take 75 mg by mouth once daily. Problem List As Of Date: 10/24/2023 (None) Encounter Status:Closed by SIENNA KAUFFMAN on 11/05/23 Normal [facility] Absolute lymphocyte countOrd ered By: Annmarie Al on 10-17-2023 Lymphocytes Auto (Unsp spec) [#/Vol] 1.24 10*3/uL 0.83-4.51 [facility] Automated lymphocyte count a s percentage of total leukocytesOrdered By: Annmarie Al on 10-17-2023 Lymphocytes/100 WBC Auto (Unsp spec) 18.3 % 19-41 [facility] Basophil percentageOrdered B y: Annmarie Al on 10-17-2023 Basophils/100 WBC (Bld) 0.6 % 0-1 [facility] Chloride [Moles/Vol] 108 mmol/L 98-107 [facility] Eosinophils/100 WBC (Bld) 3.1 % 0-5 [facility] Glucose [Mass/Vol] 95 mg/dL 74-106 [facility] Hemoglobin (Bld) [Mass/Vol] 15.6 g/dL 13.0-16.5 [facility] Monocytes/100 WBC (Bld) 9.6 % 0-10 [facility] Neutrophils (Bld) [#/Vol] 4.6 10*3/uL 2.0-7.7 [facility] Neutrophils/100 WBC (Bld) 67.4 % 47-70 [facility] Potassium [Moles/Vol] 3.9 mmol/L 3.5-5.1 [facility] Sodium [Moles/Vol] 134 mmol/L 136-145 [facility] WBC (Bld) [#/Vol] 6.8 10*3/uL 4.4-11.0 [facility] Determination of erythrocyte mean corpuscular volume (MCV)Ordered By: Annmarie Al on 10-17-2023 MCV (RBC) [Entitic vol] 91.9 fL 80-94 [facility] Erythrocyte distribution wid th ratioOrdered By: Annmarie Al on 10-17-2023 Erythrocyte distribution width (RBC) [Ratio] 12.8 % 11.6-14.6 [facility] Erythrocyte distribution wid th standard deviationOrdered By: Annmarie Al on 10-17-2023 Erythrocyte distribution width (RBC) [Entitic vol] 43.8 fL 35.1-43.9 [facility] Hematocrit Auto (Bld) [Volum e fraction]Ordered By: Annmarie Al on 10-17-2023 Hematocrit (Bld) [Volume fraction] 47.5 % 40-54 [facility] Immature granulocytes/100 WB C Auto (Bld)Ordered By: Annmarie Al on 10-17-2023 Immature granulocytes/100 WBC (Bld) 1.000 % 0.0-0.9 [facility] Comment on above: IG% - Immature Granu locytes (promyelocytes, myelocytes and metamyelocytes) > 1% indicates that a LEFT SHIFT is Present. Laboratory - Chemistry and C hemistry - challengeOrdered By: Annmarie Al on 10-17-2023 CO2 [Moles/Vol] 23.0 mmol/L 21.0-32.0 [facility] Urea nitrogen/Creatinine [Mass ratio] 33.3 mg/mg 10-20 [facility] Laboratory - Hematology and Cell countsOrdered By: Annmarie Al on 10-17-2023 MCH (RBC) [Entitic mass] 30.2 pg 27.0-32.0 [facility] MCHC (RBC) [Mass/Vol] 32.8 g/dL 32-36 [facility] Nucleated RBC/100 WBC (Bld) [Ratio] 0 % 0-5 [facility] Platelets (Bld) [#/Vol] 242 10*3/uL 150-450 [facility] No Panel InformationOrdered By: Annmarie Al on 10-17-2023 Estimated Creatinine Clearance Calc 83.00 ml/min [facility] Estimated GFR (MDRD) Amer 116 mL/min >60 [facility] Comment on above: GFR Calc Estimated GFR (MDRD) Non-Af Amer 96 mL/min >60 [facility] Comment on above: Non- GFR Calc Platelet mean volume Jorge Luis-Ec ker (Bld) [Entitic vol]Ordered By: Annmarie Al on 10-17-2023 Platelet mean volume (Bld) [Entitic vol] 8.9 fL 6.2-12.0 [facility] RBC Auto (Bld) [#/Vol]Ordere d By: Annmarie Al on 10-17-2023 RBC (Bld) [#/Vol] 5.17 10*6/uL 4.6-6.2 [facility] Serum or plasma calcium karel urement (mass/volume)Ordered By: Annmarie Al on 10-17-2023 Calcium [Mass/Vol] 8.9 mg/dL 8.5-10.1 [facility] Serum or plasma creatinine m easurement (mass/volume)Ordered By: Annmarie Al on 10-17-2023 Creatinine [Mass/Vol] 0.84 mg/dL 0.70-1.30 [facility] Comment on above: The validity of the calculated GFR & GFRAA in patients over 70 years has not been determined. Clinical correlation is essential. Serum or plasma urea nitroge n measurement (mass/volume)Ordered By: Annmarie Al on 10-17-2023 Urea nitrogen [Mass/Vol] 28 mg/dL 7-18 [facility] Thin prep Papanicolaou smear with manual screeningOrdered By: Annmarie Al on 10-17-2023 Thin prep Papanicolaou smear with manual screening 3 5-15 [facility] Absolute lymphocyte countOrd ered By: Annmarie Al on 10-16-2023 Lymphocytes Auto (Unsp spec) [#/Vol] 1.53 10*3/uL 0.83-4.51 [facility] Automated lymphocyte count a s percentage of total leukocytesOrdered By: Annmarie Al on 10-16-2023 Lymphocytes/100 WBC Auto (Unsp spec) 27.3 % 19-41 [facility] Basophil percentageOrdered B y: Annmarie Al on 10-16-2023 Basophils/100 WBC (Bld) 0.9 % 0-1 [facility] Chloride [Moles/Vol] 108 mmol/L 98-107 [facility] Eosinophils/100 WBC (Bld) 4.6 % 0-5 [facility] Glucose [Mass/Vol] 101 mg/dL 74-106 [facility] Comment on above: Fasting Glucose resu lt from 100 to 125 mg/dL suggests IMPAIRED HOMEOSTASIS per A.D.A. criteria. Hemoglobin (Bld) [Mass/Vol] 15.2 g/dL 13.0-16.5 [facility] Monocytes/100 WBC (Bld) 10.7 % 0-10 [facility] Neutrophils (Bld) [#/Vol] 3.1 10*3/uL 2.0-7.7 [facility] Neutrophils/100 WBC (Bld) 55.4 % 47-70 [facility] Potassium [Moles/Vol] 3.9 mmol/L 3.5-5.1 [facility] Sodium [Moles/Vol] 138 mmol/L 136-145 [facility] WBC (Bld) [#/Vol] 5.6 10*3/uL 4.4-11.0 [facility] Determination of erythrocyte mean corpuscular volume (MCV)Ordered By: Annmarie Al on 10-16-2023 MCV (RBC) [Entitic vol] 91.0 fL 80-94 [facility] Erythrocyte distribution wid th ratioOrdered By: Annmarie Al on 10-16-2023 Erythrocyte distribution width (RBC) [Ratio] 13.1 % 11.6-14.6 [facility] Erythrocyte distribution wid th standard deviationOrdered By: Annmarie Al on 10-16-2023 Erythrocyte distribution width (RBC) [Entitic vol] 43.5 fL 35.1-43.9 [facility] Hematocrit Auto (Bld) [Volum e fraction]Ordered By: Annmarie Al on 10-16-2023 Hematocrit (Bld) [Volume fraction] 44.6 % 40-54 [facility] Immature granulocytes/100 WB C Auto (Bld)Ordered By: Annmarie Al on 10-16-2023 Immature granulocytes/100 WBC (Bld) 1.100 % 0.0-0.9 [facility] Comment on above: IG% - Immature Granu locytes (promyelocytes, myelocytes and metamyelocytes) > 1% indicates that a LEFT SHIFT is Present. Laboratory - Chemistry and C hemistry - challengeOrdered By: Annmarie Al on 10-16-2023 CO2 [Moles/Vol] 25.0 mmol/L 21.0-32.0 [facility] Urea nitrogen/Creatinine [Mass ratio] 30.4 mg/mg 10-20 [facility] Laboratory - Hematology and Cell countsOrdered By: Annmarie Al on 10-16-2023 MCH (RBC) [Entitic mass] 31.0 pg 27.0-32.0 [facility] MCHC (RBC) [Mass/Vol] 34.1 g/dL 32-36 [facility] Nucleated RBC/100 WBC (Bld) [Ratio] 0 % 0-5 [facility] Platelets (Bld) [#/Vol] 238 10*3/uL 150-450 [facility] No Panel InformationOrdered By: Annmarie Al on 10-16-2023 Estimated Creatinine Clearance Calc 81.07 ml/min [facility] Estimated GFR (MDRD) Amer 114 mL/min >60 [facility] Comment on above: GFR Calc Estimated GFR (MDRD) Non-Af Amer 94 mL/min >60 [facility] Comment on above: Non- GFR Calc Platelet mean volume Jorge Luis-Ec ker (Bld) [Entitic vol]Ordered By: Annmarie Al on 10-16-2023 Platelet mean volume (Bld) [Entitic vol] 9.1 fL 6.2-12.0 [facility] RBC Auto (Bld) [#/Vol]Ordere d By: Annmarie Al on 10-16-2023 RBC (Bld) [#/Vol] 4.90 10*6/uL 4.6-6.2 [facility] Serum or plasma calcium karel urement (mass/volume)Ordered By: Annmarie Al on 10-16-2023 Calcium [Mass/Vol] 9.1 mg/dL 8.5-10.1 [facility] Serum or plasma creatinine m easurement (mass/volume)Ordered By: Annmarie Al on 10-16-2023 Creatinine [Mass/Vol] 0.86 mg/dL 0.70-1.30 [facility] Comment on above: The validity of the calculated GFR & GFRAA in patients over 70 years has not been determined. Clinical correlation is essential. Serum or plasma urea nitroge n measurement (mass/volume)Ordered By: Annmarie Al on 10-16-2023 Urea nitrogen [Mass/Vol] 26 mg/dL 7-18 [facility] Thin prep Papanicolaou smear with manual screeningOrdered By: Annmarie Al on 10-16-2023 Thin prep Papanicolaou smear with manual screening 5 5-15 [facility] Basophil percentageOrdered B y: Annmarie Al on 10-13-2023 Cholesterol [Mass/Vol] 160 mg/dL <200 [facility] Comment on above: <200 mg/dL Desirable 200-240 mg/dL Borderline >240 mg/dL High Risk Triglyceride [Mass/Vol] 70 mg/dL <199 [facility] Comment on above: The drugs N-Acetylcy steine and Metamizole may falsely depress this assay.Serum Triglycerides Reference Interval Normal <150 mg/dL Borderline high 150 - 199 mg/dL High 200 - 499 mg/dL Very High > or = 500 mg/dL High density lipoprotein (HD L) measurementOrdered By: Annmarie Al on 10-13-2023 Cholesterol in HDL (Body fld) [Mass/Vol] 48 mg/dL >40 [facility] Comment on above: The drugs N-Acetylcy steine and Metamizole may falsely depress this assay. Reference Range HDL <40 mg/dL Low HDL Cholesterol HDL >or= 60 mg/dL High HDL Cholesterol Low density lipoprotein (LDL ) cholesterol measurementOrdered By: Annmarie Al on 10-13-2023 Cholesterol in LDL (Body fld) [Moles/Vol] 98 mg/dL 0-130 [facility] Serum or plasma thyroid stim ulating hormone (TSH) measurement (units/volume)Ordered By: Annmarie Al on 10-13-2023 TSH Qn 2.22 uIU/mL 0.358-3.74 [facility] Very low density lipoprotein (VLDL) cholesterol measurementOrdered By: Annmarie Al on 10-13-2023 Cholesterol in VLDL Calc [Moles/Vol] 14 mg/dL 5-40 [facility] Whole blood hemoglobin A1c/t otal hemoglobin ratio (mass fraction)Ordered By: Annmarie Al on 10-13-2023 HbA1c (Bld) [Mass fraction] 5.8 % 3.8-5.6 [facility] Comment on above: Normal < 5.7 % Predi abetic 5.7 - 6.4 % Diabetic >or= 6.5 % Please note range changes. Absolute lymphocyte countOrd ered By: Justin Jim on 10-12-2023 Lymphocytes Auto (Unsp spec) [#/Vol] 2.18 10*3/uL 0.83-4.51 [facility] Automated lymphocyte count a s percentage of total leukocytesOrdered By: Justin Jim on 10-12-2023 Lymphocytes/100 WBC Auto (Unsp spec) 26.8 % 19-41 [facility] Basophil percentageOrdered B y: Justin Jim on 10-12-2023 Basophils/100 WBC (Bld) 1.1 % 0-1 [facility] Chloride [Moles/Vol] 109 mmol/L 98-107 [facility] Eosinophils/100 WBC (Bld) 1.7 % 0-5 [facility] Glucose [Mass/Vol] 113 mg/dL 74-106 [facility] Comment on above: Fasting Glucose resu lt from 100 to 125 mg/dL suggests IMPAIRED HOMEOSTASIS per A.D.A. criteria. Hemoglobin (Bld) [Mass/Vol] 15.5 g/dL 13.0-16.5 [facility] Monocytes/100 WBC (Bld) 6.9 % 0-10 [facility] Neutrophils (Bld) [#/Vol] 5.0 10*3/uL 2.0-7.7 [facility] Neutrophils/100 WBC (Bld) 62.0 % 47-70 [facility] Potassium [Moles/Vol] 4.7 mmol/L 3.5-5.1 [facility] Sodium [Moles/Vol] 142 mmol/L 136-145 [facility] WBC (Bld) [#/Vol] 8.1 10*3/uL 4.4-11.0 [facility] Determination of erythrocyte mean corpuscular volume (MCV)Ordered By: Justin Jim on 10-12-2023 MCV (RBC) [Entitic vol] 94.3 fL 80-94 [facility] Erythrocyte distribution wid th ratioOrdered By: Justin Jim on 10-12-2023 Erythrocyte distribution width (RBC) [Ratio] 13.1 % 11.6-14.6 [facility] Erythrocyte distribution wid th standard deviationOrdered By: Justin Jim on 10-12-2023 Erythrocyte distribution width (RBC) [Entitic vol] 45.5 fL 35.1-43.9 [facility] Hematocrit Auto (Bld) [Volum e fraction]Ordered By: Justin Jim on 10-12-2023 Hematocrit (Bld) [Volume fraction] 48.4 % 40-54 [facility] Immature granulocytes/100 WB C Auto (Bld)Ordered By: Justin Jim on 10-12-2023 Immature granulocytes/100 WBC (Bld) 1.500 % 0.0-0.9 [facility] Comment on above: IG% - Immature Granu locytes (promyelocytes, myelocytes and metamyelocytes) > 1% indicates that a LEFT SHIFT is Present. Laboratory - Chemistry and C hemistry - challengeOrdered By: Justin Jim on 10-12-2023 CO2 [Moles/Vol] 28.0 mmol/L 21.0-32.0 [facility] Urea nitrogen/Creatinine [Mass ratio] 17.9 mg/mg 10-20 [facility] Laboratory - Hematology and Cell countsOrdered By: Justin Jim on 10-12-2023 MCH (RBC) [Entitic mass] 30.2 pg 27.0-32.0 [facility] MCHC (RBC) [Mass/Vol] 32.0 g/dL 32-36 [facility] Nucleated RBC/100 WBC (Bld) [Ratio] 0 % 0-5 [facility] Platelets (Bld) [#/Vol] 263 10*3/uL 150-450 [facility] No Panel InformationOrdered By: Justin Jim on 10-12-2023 Estimated Creatinine Clearance Calc 0.00 ml/min [facility] Estimated GFR (MDRD) Amer 89 mL/min >60 [facility] Comment on above: GFR Calc Estimated GFR (MDRD) Non-Af Amer 74 mL/min >60 [facility] Comment on above: Non- GFR Calc Platelet mean volume Jorge Luis-Ec ker (Bld) [Entitic vol]Ordered By: Justin Jim on 10-12-2023 Platelet mean volume (Bld) [Entitic vol] 8.6 fL 6.2-12.0 [facility] RBC Auto (Bld) [#/Vol]Ordere d By: Justin Jim on 10-12-2023 RBC (Bld) [#/Vol] 5.13 10*6/uL 4.6-6.2 [facility] Serum or plasma calcium karel urement (mass/volume)Ordered By: Justin Jim on 10-12-2023 Calcium [Mass/Vol] 8.8 mg/dL 8.5-10.1 [facility] Serum or plasma creatinine m easurement (mass/volume)Ordered By: Justin Jim on 10-12-2023 Creatinine [Mass/Vol] 1.06 mg/dL 0.70-1.30 [facility] Comment on above: The validity of the calculated GFR & GFRAA in patients over 70 years has not been determined. Clinical correlation is essential. Serum or plasma urea nitroge n measurement (mass/volume)Ordered By: Justin Jim on 10-12-2023 Urea nitrogen [Mass/Vol] 19 mg/dL 7-18 [facility] Thin prep Papanicolaou smear with manual screeningOrdered By: Annmarie Al on 10-12-2023 Thin prep Papanicolaou smear with manual screening 149 mg/dL 74-106 [facility] Comment on above: MANAGEMENT OF PATIEN T CARE PER NURSING PROTOCOL Thin prep Papanicolaou smear with manual screeningOrdered By: Justin Jim on 10-12-2023 Thin prep Papanicolaou smear with manual screening 5 5-15 [facility] INR in Blood by Coagulation assayOrdered By: Mannie Ibarra on 09-26-2023 INR Coag (Bld) [Relative time] 0.9 {INR} [facility] Laboratory - CoagulationOrde red By: Mannie Ibarra on 09-26-2023 aPTT Coag (Bld) [Time] 30.0 s 24.1-36.2 [facility] PT Coag (PPP) [Time] 12.4 s 11.7-14.9 [facility] Platelets bldOrdered By: Mckeon on 09-26-2023 Platelets (Bld) [#/Vol] 311 10*3/uL 150-450 [facility] Basophil percentageOrdered B y: Scott Mejia on 08-13-2023 Chloride [Moles/Vol] 105 mmol/L 98-107 [facility] Glucose [Mass/Vol] 95 mg/dL 74-106 [facility] Potassium [Moles/Vol] 4.2 mmol/L 3.5-5.1 [facility] Sodium [Moles/Vol] 139 mmol/L 136-145 [facility] Laboratory - Chemistry and C hemistry - challengeOrdered By: Scott Mejia on 08-13-2023 CO2 [Moles/Vol] 28.0 mmol/L 21.0-32.0 [facility] Urea nitrogen/Creatinine [Mass ratio] 18.6 mg/mg 07-13 [facility] No Panel InformationOrdered By: Scott Mejia on 08-13-2023 Estimated GFR (MDRD) Amer 99 mL/min >60 [facility] Comment on above: GFR Calc Estimated GFR (MDRD) Non-Af Amer 82 mL/min >60 [facility] Comment on above: Non- GFR Calc Serum or plasma calcium karel urement (mass/volume)Ordered By: Scott Mejia on 08-13-2023 Calcium [Mass/Vol] 8.6 mg/dL 8.5-10.1 [facility] Serum or plasma creatinine m easurement (mass/volume)Ordered By: Scott Mejia on 08-13-2023 Creatinine [Mass/Vol] 0.97 mg/dL 0.70-1.30 [facility] Comment on above: The validity of the calculated GFR & GFRAA in patients over 70 years has not been determined. Clinical correlation is essential. Serum or plasma urea nitroge n measurement (mass/volume)Ordered By: Scott Mejia on 08-13-2023 Urea nitrogen [Mass/Vol] 18 mg/dL 04-10 [facility] Thin prep Papanicolaou smear with manual screeningOrdered By: Scott Mejia on 08-13-2023 Thin prep Papanicolaou smear with manual screening 6 5-15 [facility] CNPNon 07-31-2023 ORLINN Telephone (JD) SARTHAK PUTNAM ([id number]) 1955 M Date Time Provider Department 07/31/23 NEUROLOGY PROVIDER JD During your visit today, we recorded the following information about you: Kenia Willis 07/31/2023 4:17 PM Signed Received a referral request for the patient from the Neurology nurse. The patient's demographic information needs to be updated. Copied the face sheet and asked one of the PSS to update the information. When information is updated, we will call the patient to schedule an appointment. Kenia Willis 08/03/2023 4:25 PM Signed Left the patient a voice message to call the office to schedule an appointment. Allergies As of Date: 07/31/2023 (Not on File) Date Reviewed: Never Reviewed Reason for Visit: Referral Request [[id number]] Problem List As Of Date: 07/31/2023 (None) Encounter Status:Closed by KENIA WILLIS on 07/31/23 Normal [facility] [place] Basophil percentageOrdered B y: Scott Roberto on 07-02-2023 Bilirubin [Mass/Vol] 0.60 mg/dL 0.20-1.00 [facility] Comment on above: For patients on eltr ombopag therapy, use of Dimension [place] TBIL is not recommended. Chloride [Moles/Vol] 104 mmol/L 98-107 [facility] Cholesterol [Mass/Vol] 144 mg/dL <200 [facility] Comment on above: <200 mg/dL Desirable 200-240 mg/dL Borderline >240 mg/dL High Risk Glucose [Mass/Vol] 90 mg/dL 74-106 [facility] Potassium [Moles/Vol] 4.0 mmol/L 3.5-5.1 [facility] Protein [Mass/Vol] 7.3 g/dL 6.4-8.2 [facility] Sodium [Moles/Vol] 137 mmol/L 136-145 [facility] Triglyceride [Mass/Vol] 121 mg/dL <199 [facility] Comment on above: The drugs N-Acetylcy steine and Metamizole may falsely depress this assay.Serum Triglycerides Reference Interval Normal <150 mg/dL Borderline high 150 - 199 mg/dL High 200 - 499 mg/dL Very High > or = 500 mg/dL Laboratory - Chemistry and C hemistry - challengeOrdered By: Scott Mejia on 07-02-2023 ALP [Catalytic activity/Vol] 28 U/L 45-117 [facility] ALT [Catalytic activity/Vol] 25 U/L 16-61 [facility] CO2 [Moles/Vol] 26.0 mmol/L 21.0-32.0 [facility] Globulin (S) [Mass/Vol] 3.5 g/dL 2.2-4.2 [facility] Urea nitrogen/Creatinine [Mass ratio] 18.8 mg/mg 10-20 [facility] No Panel InformationOrdered By: Scott Mejia on 07-02-2023 Estimated GFR (MDRD) Amer 80 mL/min >60 [facility] Comment on above: GFR Calc Estimated GFR (MDRD) Non-Af Amer 66 mL/min >60 [facility] Comment on above: Non- GFR Calc Serum or plasma albumin karel urement (mass/volume)Ordered By: Scott Mejia on 07-02-2023 Albumin [Mass/Vol] 3.8 g/dL 3.2-5.0 [facility] Serum or plasma albumin/glob ulin mass ratioOrdered By: Scott Mejia on 07-02-2023 Albumin/Globulin [Mass ratio] 1.1 {ratio} 0.9-2.4 [facility] Serum or plasma calcium karel urement (mass/volume)Ordered By: Scott Mejia on 07-02-2023 Calcium [Mass/Vol] 9.0 mg/dL 8.5-10.1 [facility] Serum or plasma cholesterol in HDL measurement (mass/volume)Ordered By: Scott Mejia on 07-02-2023 Cholesterol in HDL [Mass/Vol] 55 mg/dL >40 [facility] Comment on above: The drugs N-Acetylcy steine and Metamizole may falsely depress this assay. Reference Range HDL <40 mg/dL Low HDL Cholesterol HDL >or= 60 mg/dL High HDL Cholesterol Serum or plasma cholesterol in VLDL measurement (mass/volume)Ordered By: Scott Mejia on 07-02-2023 Cholesterol in VLDL [Mass/Vol] 24 mg/dL 5-40 [facility] Serum or plasma creatinine m easurement (mass/volume)Ordered By: Scott Mejia on 07-02-2023 Creatinine [Mass/Vol] 1.17 mg/dL 0.70-1.30 [facility] Comment on above: The validity of the calculated GFR & GFRAA in patients over 70 years has not been determined. Clinical correlation is essential. Serum or plasma low density lipoprotein (LDL) cholesterol measurement (mass/volume)Ordered By: Scott Mejia on 07-02-2023 Cholesterol in LDL [Mass/Vol] 65 mg/dL 0-130 [facility] Serum or plasma urea nitroge n measurement (mass/volume)Ordered By: Scott Mejia on 07-02-2023 Urea nitrogen [Mass/Vol] 22 mg/dL 7-18 [facility] Thin prep Papanicolaou smear with manual screeningOrdered By: Scott Mejia on 07-02-2023 Thin prep Papanicolaou smear with manual screening 20 U/L 15-37 [facility] Thin prep Papanicolaou smear with manual screening 7 5-15 [facility] Basophil percentageOrdered B y: Haley Moreau on 04-06-2023 Bilirubin [Mass/Vol] 0.40 mg/dL 0.20-1.00 [facility] Comment on above: For patients on eltr ombopag therapy, use of [place] TBIL is not recommended. Chloride [Moles/Vol] 108 mmol/L 98-107 [facility] Cholesterol [Mass/Vol] 218 mg/dL <200 [facility] Comment on above: <200 mg/dL Desirable 200-240 mg/dL Borderline >240 mg/dL High Risk Glucose [Mass/Vol] 84 mg/dL 74-106 [facility] Potassium [Moles/Vol] 4.2 mmol/L 3.5-5.1 [facility] Protein [Mass/Vol] 7.2 g/dL 6.4-8.2 [facility] Sodium [Moles/Vol] 141 mmol/L 136-145 [facility] Triglyceride [Mass/Vol] 161 mg/dL <199 [facility] Comment on above: The drugs N-Acetylcy steine and Metamizole may falsely depress this assay.Serum Triglycerides Reference Interval Normal <150 mg/dL Borderline high 150 - 199 mg/dL High 200 - 499 mg/dL Very High > or = 500 mg/dL Laboratory - Chemistry and C hemistry - challengeOrdered By: Haley Moreau on 04-06-2023 ALP [Catalytic activity/Vol] 30 U/L 45-117 [facility] ALT [Catalytic activity/Vol] 20 U/L 16-61 [facility] CO2 [Moles/Vol] 29.0 mmol/L 21.0-32.0 [facility] Globulin (S) [Mass/Vol] 3.9 g/dL 2.2-4.2 [facility] Urea nitrogen/Creatinine [Mass ratio] 21.4 mg/mg 10-20 [facility] No Panel InformationOrdered By: Haley Moreau on 04-06-2023 Estimated GFR (MDRD) Amer 92 mL/min >60 [facility] Comment on above: GFR Calc Estimated GFR (MDRD) Non-Af Amer 76 mL/min >60 [facility] Comment on above: Non- GFR Calc Serum or plasma albumin karel urement (mass/volume)Ordered By: Haley Moreau on 04-06-2023 Albumin [Mass/Vol] 3.3 g/dL 3.2-5.0 [facility] Serum or plasma albumin/glob ulin mass ratioOrdered By: Haley Moreau on 04-06-2023 Albumin/Globulin [Mass ratio] 0.8 {ratio} 0.9-2.4 [facility] Serum or plasma calcium karel urement (mass/volume)Ordered By: Haley Moreau on 04-06-2023 Calcium [Mass/Vol] 9.0 mg/dL 8.5-10.1 [facility] Serum or plasma cholesterol in HDL measurement (mass/volume)Ordered By: Haley Moreau on 04-06-2023 Cholesterol in HDL [Mass/Vol] 41 mg/dL >40 [facility] Comment on above: The drugs N-Acetylcy steine and Metamizole may falsely depress this assay. Reference Range HDL <40 mg/dL Low HDL Cholesterol HDL >or= 60 mg/dL High HDL Cholesterol Serum or plasma cholesterol in VLDL measurement (mass/volume)Ordered By: Haley Moreau on 04-06-2023 Cholesterol in VLDL [Mass/Vol] 32 mg/dL 5-40 [facility] Serum or plasma creatinine m easurement (mass/volume)Ordered By: Haley Moreau on 04-06-2023 Creatinine [Mass/Vol] 1.03 mg/dL 0.70-1.30 [facility] Comment on above: The validity of the calculated GFR & GFRAA in patients over 70 years has not been determined. Clinical correlation is essential. Serum or plasma low density lipoprotein (LDL) cholesterol measurement (mass/volume)Ordered By: Haley Moreau on 04-06-2023 Cholesterol in LDL [Mass/Vol] 145 mg/dL 0-130 [facility] Serum or plasma urea nitroge n measurement (mass/volume)Ordered By: Haley Moreau on 04-06-2023 Urea nitrogen [Mass/Vol] 22 mg/dL 7-18 [facility] Thin prep Papanicolaou smear with manual screeningOrdered By: Haley Moreau on 04-06-2023 Thin prep Papanicolaou smear with manual screening 16 U/L 15-37 [facility] Thin prep Papanicolaou smear with manual screening 4 5-15 [facility] Vital Signs Date Time Vital Sign Value Performing Clinician Facility 03-24-2025 09:120400 Body height 175.[address] Scott Mejia MD Work Phone: [facility] 03-24-2025 09:12-0400 Body mass index (BMI) [Ratio] 23.4 kg/m2 Dr. Scott Mejia MD Work Phone: [facility] 03-24-2025 09:12-0400 Body temperature 97.9 [degF] Dr. Scott Mejia MD Work Phone: [facility] 03-24-2025 09:12-0400 Body weight 72.[address] Scott Mejia MD Work Phone: [facility] 03-24-2025 09:12-0400 Diastolic blood pressure 66 mm[Hg] Dr. Scott Mejia MD Work Phone: [facility] 03-24-2025 09:12-0400 Heart rate 66 /min Dr. Scott Mejia MD Work Phone: [facility] 03-24-2025 09:12-0400 Respiratory rate 18 /min Dr. Scott Mejia MD Work Phone: [facility] 03-24-2025 09:12-0400 SaO2% (BldA) [Mass fraction] 95 % Dr. Scott Mejia MD Work Phone: [facility] 03-24-2025 09:12-0400 Systolic blood pressure 87 mm[Hg] Dr. Scott Mejia MD Work Phone: [phone])[phone] [place] [address] 01-26-2025 07:29-0400 Body mass index (BMI) [Ratio] 24.3 kg/m2 Dr. Scott Mejia MD Work Phone: 5(654)269-187249 [place] [address] 01-26-2025 07:29-0400 Body weight 74.[address] Scott Mejia MD Work Phone: 3(005)065-728849 [place] [address] 01-26-2025 07:29-0400 Diastolic blood pressure 72 mm[Hg] Dr. Scott Mejia MD Work Phone: 9([phone])[phone] [place] [address] 01-26-2025 07:29-0400 Heart rate 91 /min Dr. Scott Mejia MD Work Phone: [facility] 01-26-2025 07:29-0400 Respiratory rate 18 /min Dr. Scott Mejia MD Work Phone: [facility] 01-26-2025 07:29-0400 SaO2% (BldA) [Mass fraction] 93 % Dr. Scott Mejia MD Work Phone: [facility] 01-26-2025 07:29-0400 Systolic blood pressure 101 mm[Hg] Dr. Scott Mejia MD Work Phone: [facility] 01-20-2025 13:58-0400 Diastolic Blood Pressure Non-Invasive 67 mm[Hg] TANIYA JACQUES MD [facility] 01-20-2025 13:58-0400 Heart rate 82 /min TANIYA JACQUES MD [facility] 01-20-2025 13:58-0400 Respiratory rate 20 /min TANIYA JACQUES MD [facility] 01-20-2025 13:58-0400 Systolic Blood Pressure Non-Invasive 122 mm[Hg] TANIYA JACQUES MD [facility] 01-20-2025 05:00-0400 Diastolic Blood Pressure Non-Invasive 76 mm[Hg] TANIYA JACQUES MD [address] [place] [address] 01-20-2025 05:00-0400 Heart rate 97 /min TANIYA JACQUES MD [address] [place] [address] 01-20-2025 05:00-0400 Respiratory rate 18 /min TANIYA JACQUES MD [address] [place] [address] 01-20-2025 05:00-0400 Systolic Blood Pressure Non-Invasive 125 mm[Hg] TANIYA JACQUES MD [facility] 01-19-2025 21:21-0400 Diastolic Blood Pressure Non-Invasive 78 mm[Hg] TANIYA JACQUES MD [facility] 01-19-2025 21:21-0400 Heart rate 85 /min TANIYA JACQUES MD [facility] 01-19-2025 21:21-0400 Systolic Blood Pressure Non-Invasive 159 mm[Hg] TANIYA JACQUES MD [facility] 01-19-2025 19:21-0400 Heart rate 85 /min TANIYA JACQUES MD [facility] 01-19-2025 19:21-0400 Respiratory rate 16 /min TANIYA JACQUES MD [facility] 01-19-2025 16:26-0400 Body temperature 98.06 [degF] TANIYA JACQUES MD [facility] 01-19-2025 15:29-0400 Body temperature 98.5 [degF] Dr. Scott Mejia MD Work Phone: [facility] 01-19-2025 15:29-0400 Diastolic blood pressure 74 mm[Hg] Dr. Scott Mejia MD Work Phone: [facility] 01-19-2025 15:29-0400 Heart rate 78 /min Dr. Scott Mejia MD Work Phone: [facility] 01-19-2025 15:29-0400 Respiratory rate 18 /min Dr. Scott Mejia MD Work Phone: [facility] 01-19-2025 15:29-0400 SaO2% (BldA) [Mass fraction] 96 % Dr. Scott Mejia MD Work Phone: [facility] 01-19-2025 15:29-0400 Systolic blood pressure 149 mm[Hg] Dr. Scott Mejia MD Work Phone: [facility] 01-19-2025 14:00-0400 Inhaled oxygen flow rate 3 L/min Dr. Scott Mejia MD Work Phone: [facility] 01-19-2025 11:34-0400 Body mass index (BMI) [Ratio] 24.2 kg/m2 Dr. Scott Mejia MD Work Phone: [facility] 01-19-2025 11:34-0400 Body weight 74.[address] Scott Mjeia MD Work Phone: [facility] 01-06-2025 06:37-0400 Blood Pressure Cuff Size MANDO FISCHER DO [facility] 01-06-2025 06:37-0400 Blood Pressure Location MANDO FISCHER DO [facility] 01-06-2025 06:37-0400 Blood Pressure Method MANDO FISCHER DO [facility] 01-06-2025 06:37-0400 Body temperature 98.6 [degF] MANDO FISCHER DO [facility] 01-06-2025 06:37-0400 Diastolic Blood Pressure Non-Invasive 82 mm[Hg] MANDO FISCHER DO [facility] 01-06-2025 06:37-0400 Heart rate 82 /min MANDO VILLALPANDORAN DO [facility] 01-06-2025 06:37-0400 Respiratory rate 16 /min MANDO VILLALPANDORAN DO [facility] 01-06-2025 06:37-0400 Systolic Blood Pressure Non-Invasive 132 mm[Hg] MANDO VILLALPANDORAN DO [facility] 01-06-2025 03:16-0400 Blood Pressure Cuff Size MANDO VILLALPANDORAN DO [facility] 01-06-2025 03:16-0400 Blood Pressure Location MANDO VILLALPANDORAN DO [facility] 01-06-2025 03:16-0400 Blood Pressure Method MANDO VILLALPANDORAN DO [facility] 01-06-2025 03:16-0400 Body temperature 98.42 [degF] MANDO VILLALPANDORAN DO [facility] 01-06-2025 03:16-0400 Diastolic Blood Pressure Non-Invasive 84 mm[Hg] MANDO VILLALPANDORAN DO [facility] 01-06-2025 03:16-0400 Heart rate 99 /min MANDO VILLALPANDORAN DO [facility] 01-06-2025 03:16-0400 Respiratory rate 16 /min MANDO VILLALPANDORAN DO [facility] 01-06-2025 03:16-0400 Systolic Blood Pressure Non-Invasive 125 mm[Hg] MANDO VILLALPANDORAN DO [facility] 01-05-2025 22:57-0400 Body temperature 97.88 [degF] MANDO VILLALPANDORAN DO [facility] 01-05-2025 22:57-0400 Diastolic Blood Pressure Non-Invasive 86 mm[Hg] MANDO VILLALPANDORAN DO [facility] 01-05-2025 22:57-0400 Heart rate 91 /min MANDO VILLALPANDORAN DO [facility] 01-05-2025 22:57-0400 Reason For Taking VItal Signs MANDO VILLALPANDORAN DO [facility] 01-05-2025 22:57-0400 Respiratory rate 16 /min MANDO VILLALPANDORAN DO [facility] 01-05-2025 22:57-0400 Systolic Blood Pressure Non-Invasive 132 mm[Hg] MANDO VILLALPANDORAN DO [facility] 01-05-2025 16:39-0400 Body temperature 98.24 [degF] MANDO VILLALPANDORAN DO [facility] 01-05-2025 16:39-0400 Reason For Taking VItal Signs MANDO VILLALPANDORAN DO [facility] 01-05-2025 16:35-0400 Body height 175.3 cm MANDO VILLALPANDORAN DO [facility] 01-05-2025 16:35-0400 Body weight 73 kg MANDO VILLALPANDORAN DO [facility] 01-05-2025 16:35-0400 Body weight 23.76 kg/m2 MANDO VILLALPANDORAN DO [facility] 01-05-2025 15:39-0400 Body temperature 97.34 [degF] MANDO FISCHER DO [facility] 01-05-2025 15:39-0400 Heart rate 90 /min MANDO VILLALPANDORAN DO [facility] 01-05-2025 15:39-0400 Mean blood pressure 92 mm[Hg] MANDO VILLALPANDORAN DO [facility] 01-05-2025 15:24-0400 Heart rate 90 /min MANDO FISCHER DO [facility] 01-05-2025 15:24-0400 Mean blood pressure 103 mm[Hg] MANDO VILLALPANDORAN DO [facility] 01-05-2025 15:09-0400 Blood Pressure Cuff Size MANDO VILLALPANDORAN DO [facility] 01-05-2025 15:09-0400 Blood Pressure Location MANDO VILLALPANDORAN DO [facility] 01-05-2025 15:09-0400 Blood Pressure Method MANDOSHELLIE VILLALPANDORAN DO [facility] 01-05-2025 15:09-0400 Body temperature 97.7 [degF] MANDO VILLALPANDORAN DO [facility] 01-05-2025 15:09-0400 Heart rate 86 /min MANDO VILLALPANDORAN DO [facility] 01-05-2025 15:09-0400 Mean blood pressure 88 mm[Hg] MANDO VILLALPANDORAN DO [facility] 01-05-2025 15:05-0400 Respiratory Rate - Anes 0 br/min MANDO VILLALPANDORAN DO [facility] 01-05-2025 15:00-0400 Respiratory Rate - Anes 5 br/min MANDO FISCHER DO [facility] 01-05-2025 14:55-0400 Respiratory Rate - Anes 10 br/min MANDO FISCHER DO [facility] 01-05-2025 14:45-0400 Body temperature 97.05 [degF] MANDO VILLALPANDORAN DO [facility] 01-05-2025 14:40-0400 Body temperature 96.98 [degF] MANDO VILLALPANDORAN DO [facility] 01-05-2025 14:35-0400 Body temperature 96.91 [degF] MANDO VILLALPANDORAN DO [facility] 01-05-2025 08:25-0400 Body height 175.3 cm MANDO FISCHER DO [facility] 01-05-2025 08:25-0400 Body weight 73 kg MANDOSHELLIE FISCHER DO [facility] 01-05-2025 08:25-0400 Heart rate 78 /min MANDOSHELLIE FISCHER DO [facility] 12-25-2024 07:40-0400 Body height 175.[address] Scott Mejia MD Work Phone: [facility] 12-25-2024 07:40-0400 Body mass index (BMI) [Ratio] 24.3 kg/m2 Dr. Scott Mejia MD Work Phone: [facility] 12-25-2024 07:40-0400 Body weight 74.[address] Scott Mejia MD Work Phone: [facility] 12-25-2024 07:40-0400 Diastolic blood pressure 79 mm[Hg] Dr. Scott Mejia MD Work Phone: [facility] 12-25-2024 07:40-0400 Heart rate 86 /min Dr. Scott Mejia MD Work Phone: [facility] 12-25-2024 07:40-0400 Respiratory rate 18 /min Dr. Scott Mejia MD Work Phone: [facility] 12-25-2024 07:40-0400 SaO2% (BldA) [Mass fraction] 94 % Dr. Scott Mejia MD Work Phone: [facility] 12-25-2024 07:40-0400 Systolic blood pressure 112 mm[Hg] Dr. Scott Mejia MD Work Phone: [facility] 12-22-2024 08:14-0400 Blood Pressure Cuff Size MANDO VILLALPANDORAN DO [facility] 12-22-2024 08:14-0400 Blood Pressure Location MANDO VILLALPANDORAN DO [facility] 12-22-2024 08:14-0400 Blood Pressure Method MANDO VILLALPANDORAN DO [facility] 12-22-2024 08:14-0400 Body height 175 cm MANDO VILLALPANDORAN DO [facility] 12-22-2024 08:14-0400 Body temperature 97.16 [degF] MANDO VILLALPANDORAN DO [facility] 12-22-2024 08:14-0400 Body weight 75.3 kg MANDO VILLALPANDORAN DO [facility] 12-22-2024 08:14-0400 Body weight 24.59 kg/m2 MANDO VILLALPANDORAN DO [facility] 12-22-2024 08:14-0400 Diastolic Blood Pressure Non-Invasive 74 mm[Hg] MANDO VILLALPANDORAN DO [facility] 12-22-2024 08:14-0400 Heart rate 85 /min MANDO VILLALPANDORAN DO [facility] 12-22-2024 08:14-0400 Systolic Blood Pressure Non-Invasive 101 mm[Hg] MANDO VILLALPANDORAN DO [facility] 08-22-2024 12:24-0500 Blood Pressure Cuff Size MANDO VILLALPANDORAN DO [facility] 08-22-2024 12:24-0500 Blood Pressure Location MANDO VILLALPANDORAN DO [facility] 08-22-2024 12:24-0500 Blood Pressure Method MANDO VILLALPANDORAN DO [facility] 08-22-2024 12:24-0500 Body temperature 97.88 [degF] MANDO VILLALPANDORAN DO [facility] 08-22-2024 12:24-0500 Diastolic Blood Pressure Non-Invasive 75 mm[Hg] MANDO VILLALPANDORAN DO [facility] 08-22-2024 12:24-0500 Heart rate 61 /min MANDO VLILALPANDORAN DO [facility] 08-22-2024 12:24-0500 Respiratory rate 18 /min MANDO VILLALPANDORAN DO [facility] 08-22-2024 12:24-0500 Systolic Blood Pressure Non-Invasive 126 mm[Hg] MANDO VILLALPANDORAN DO [facility] 08-22-2024 07:22-0500 Blood Pressure Cuff Size MANDO FISCHER DO [facility] 08-22-2024 07:22-0500 Blood Pressure Location MANDO FISCHER DO [facility] 08-22-2024 07:22-0500 Blood Pressure Method MANDO FISCHER DO [facility] 08-22-2024 07:22-0500 Body temperature 98.96 [degF] MANDO VILLALPANDORAN DO [facility] 08-22-2024 07:22-0500 Diastolic Blood Pressure Non-Invasive 79 mm[Hg] MANDO VILLALPANDORAN DO [facility] 08-22-2024 07:22-0500 Heart rate 80 /min MANDO VILLALPANDORAN DO [facility] 08-22-2024 07:22-0500 Reason For Taking VItal Signs MANDO MEGHAN DO [facility] 08-22-2024 07:22-0500 Respiratory rate 18 /min MANDO VILLALPANDORAN DO [facility] 08-22-2024 07:22-0500 Systolic Blood Pressure Non-Invasive 121 mm[Hg] MANDO VILLALPANDORAN DO [facility] 08-21-2024 23:40-0500 Blood Pressure Cuff Size MANDO VILLALPANDORAN DO [facility] 08-21-2024 23:40-0500 Blood Pressure Location MANDO VILLALPANDORAN DO [facility] 08-21-2024 23:40-0500 Blood Pressure Method MANDO VILLALPANDORAN DO [facility] 08-21-2024 23:40-0500 Body temperature 98.24 [degF] MANDO VILLALPANDORAN DO [facility] 08-21-2024 23:40-0500 Diastolic Blood Pressure Non-Invasive 78 mm[Hg] MANDO VILLALPANDORAN DO [facility] 08-21-2024 23:40-0500 Heart rate 101 /min MANDO VILLALPANDORAN DO [facility] 08-21-2024 23:40-0500 Reason For Taking VItal Signs MANDO VILLALPANDORAN DO [facility] 08-21-2024 23:40-0500 Respiratory rate 18 /min MANDO VILLALPANDORAN DO [facility] 08-21-2024 23:40-0500 Systolic Blood Pressure Non-Invasive 112 mm[Hg] MANDO VILLALPANDORAN DO [facility] 08-21-2024 15:02-0500 Reason For Taking VItal Signs MANDO VILLALPANDORAN DO [facility] 08-20-2024 15:41-0500 Heart rate 85 /min MANDO VILLALPANDORAN DO [facility] 08-20-2024 07:40-0500 Heart rate 77 /min MANDO FISCHER DO [facility] 08-19-2024 15:13-0500 Heart rate 74 /min MANDO FISCHER DO [facility] 08-19-2024 08:47-0500 Heart rate 78 /min MANDO FISCHER DO [facility] 08-18-2024 18:52-0500 Body temperature 97.88 [degF] MANDO FISCHER DO [facility] 08-18-2024 18:52-0500 Heart rate 73 /min MANDO FISCHER DO [facility] 08-18-2024 18:52-0500 Mean blood pressure 96 mm[Hg] MANDO VILLALPANDORAN DO [facility] 08-18-2024 18:49-0500 Body height 175.3 cm MANDO VILLALPANDORAN DO [facility] 08-18-2024 18:49-0500 Body weight 78.2 kg MANDO FISCHER DO [facility] 08-18-2024 18:49-0500 Body weight 25.45 kg/m2 MANDO FISCHER DO [facility] 08-18-2024 17:55-0500 Body temperature 97.16 [degF] MANDO VILLALPANDORAN DO [facility] 08-18-2024 17:38-0500 Mean blood pressure 95 mm[Hg] MANDO FISCHER DO [facility] 08-18-2024 17:28-0500 Diastolic blood pressure 57 mm[Hg] MANDO FISCHER DO [facility] 08-18-2024 17:28-0500 Mean blood pressure 72 mm[Hg] MANDO FISCHER DO [facility] 08-18-2024 17:28-0500 Systolic blood pressure 95 mm[Hg] MANDO VILLALPANDORAN DO [facility] 08-18-2024 17:08-0500 Body temperature 97.88 [degF] MANDO FISCHER DO [facility] 08-18-2024 17:08-0500 Diastolic blood pressure 57 mm[Hg] MANDO VILLALPANDORAN DO [facility] 08-18-2024 17:08-0500 Systolic blood pressure 94 mm[Hg] MANDO VILLALPANDORAN DO [facility] 08-18-2024 17:05-0500 Respiratory Rate - Anes 0 br/min MANDO VILLALPANDORAN DO [facility] 08-18-2024 17:00-0500 Respiratory Rate - Anes 16 br/min MANDO VILLALPANDORAN DO [facility] 08-18-2024 16:55-0500 Body temperature 99.14 [degF] MANDO VILLALPANDORAN DO [facility] 08-18-2024 16:55-0500 Respiratory Rate - Anes 9 br/min MANDO VILLALPANDORAN DO [facility] 08-18-2024 16:50-0500 Body temperature 99.01 [degF] MANDO VILLALPANDORAN DO [facility] 08-18-2024 16:45-0500 Body temperature 98.87 [degF] MANDO VILLALPANDORAN DO [facility] 08-18-2024 10:44-0500 Body height 175.3 cm MANDO VILLALPANDORAN DO [facility] 08-18-2024 10:44-0500 Body weight 78.2 kg MANDO VILLALPANDORAN DO [facility] 08-04-2024 09:08-0500 Body height 172 cm MANDO VILLALPANDORAN DO [facility] 08-04-2024 09:08-0500 Body temperature 97.52 [degF] MANDO FISCHER DO [facility] 08-04-2024 09:08-0500 Body weight 81 kg MANDO FISCHER DO [facility] 08-04-2024 09:08-0500 Body weight 27.38 kg/m2 MANDO FISCHER DO [facility] 08-04-2024 09:08-0500 Diastolic Blood Pressure Non-Invasive 84 mm[Hg] MANDO FISCHER [employer] [facility] 08-04-2024 09:08-0500 Heart rate 65 /min MANDO FISCHER [employer] [facility] 08-04-2024 09:08-0500 Systolic Blood Pressure Non-Invasive 138 mm[Hg] MANDO FISCHER [employer] [facility] 02-04-2024 22:19-0400 Body temperature 97.8 [degF] Dr. Scott Mejia Work Phone: [facility] 02-04-2024 22:19-0400 Diastolic blood pressure 95 mm[Hg] Dr. Scott Mejia Work Phone: [facility] 02-04-2024 22:19-0400 Heart rate 51 /min Dr. Scott Mejia Work Phone: [facility] 02-04-2024 22:19-0400 Inhaled oxygen flow rate 2 L/min Dr. Scott Mejia Work Phone: [facility] 02-04-2024 22:19-0400 Respiratory rate 20 /min Dr. Scott Mejia Work Phone: [facility] 02-04-2024 22:19-0400 SaO2% (BldA) [Mass fraction] 95 % Dr. Scott Mejia Work Phone: [facility] 02-04-2024 22:19-0400 Systolic blood pressure 139 mm[Hg] Dr. Scott Mejia Work Phone: [facility] 02-04-2024 21:45-0400 Body height 175.[address] Scott Mejia Work Phone: [facility] 02-04-2024 21:45-0400 Body mass index (BMI) [Ratio] 24.9 kg/m2 Dr. Scott Mejia Work Phone: [facility] 02-04-2024 21:45-0400 Body weight 76.[address] Scott Mejia Work Phone: [facility] 11-20-2023 13:35-0500 Body weight 75.75 kg Bonita er PA-C Work Phone: [facility] 11-20-2023 13:35-0500 Diastolic blood pressure 94 mm[Hg] Bonita Malloyer PA-C Work Phone: [facility] 11-20-2023 13:35-0500 Heart rate 74 /min Bonita Queener PA-C Work Phone: [facility] 11-20-2023 13:35-0500 Respiratory rate 18 /min Bonita Queener PA-C Work Phone: [facility] 11-20-2023 13:35-0500 SaO2% (BldA) [Mass fraction] 97 % Bonita Queener PA-C Work Phone: [facility] 11-20-2023 13:35-0500 Systolic blood pressure 156 mm[Hg] Bonita Malloyer PA-C Work Phone: [facility] 10-25-2023 07:40-0500 Body height 175.[address] Scott Mejia Work Phone: [facility] 10-25-2023 07:40-0500 Body mass index (BMI) [Ratio] 24.5 kg/m2 Dr. Scott Mejia Work Phone: [facility] 10-25-2023 07:40-0500 Body temperature 97.3 [degF] Dr. Scott Mejia Work Phone: [facility] 10-25-2023 07:40-0500 Body weight 75.[address] Scott Mejia Work Phone: [facility] 10-25-2023 07:40-0500 Diastolic blood pressure 93 mm[Hg] Dr. Scott Mejia Work Phone: [facility] 10-25-2023 07:40-0500 Heart rate 73 /min Dr. Scott Mejia Work Phone: [facility] 10-25-2023 07:40-0500 Respiratory rate 20 /min Dr. Scott Mejia Work Phone: [facility] 10-25-2023 07:40-0500 SaO2% (BldA) [Mass fraction] 98 % Dr. Scott Mejia Work Phone: [facility] 10-25-2023 07:40-0500 Systolic blood pressure 167 mm[Hg] Dr. Scott Mejia Work Phone: [facility] 10-17-2023 12:34-0500 Body temperature 97.5 [degF] Dr. Scott Mejia Work Phone: [facility] 10-17-2023 12:34-0500 Diastolic blood pressure 91 mm[Hg] Dr. Scott Mejia Work Phone: [facility] 10-17-2023 12:34-0500 Heart rate 73 /min Dr. Scott Mejia Work Phone: [facility] 10-17-2023 12:34-0500 Respiratory rate 16 /min Dr. Scott Mejia Work Phone: [facility] 10-17-2023 12:34-0500 SaO2% (BldA) [Mass fraction] 94 % Dr. Scott Mejia Work Phone: [facility] 10-17-2023 12:34-0500 Systolic blood pressure 136 mm[Hg] Dr. Scott Mejia Work Phone: [facility] 10-17-2023 12:04-0500 Body mass index (BMI) [Ratio] 24.1 kg/m2 Dr. Scott Mejia Work Phone: [facility] 10-17-2023 04:30-0500 Body temperature 97.6 [degF] Dr. Scott Mejia Work Phone: [facility] 10-17-2023 04:30-0500 Diastolic blood pressure 88 mm[Hg] Dr. Scott Mejia Work Phone: [facility] 10-17-2023 04:30-0500 Heart rate 78 /min Dr. Scott eMjia Work Phone: [facility] 10-17-2023 04:30-0500 Respiratory rate 16 /min Dr. Scott Mejia Work Phone: [facility] 10-17-2023 04:30-0500 SaO2% (BldA) [Mass fraction] 93 % Dr. Scott Mejia Work Phone: [facility] 10-17-2023 04:30-0500 Systolic blood pressure 136 mm[Hg] Dr. Scott Mejia Work Phone: [facility] 10-17-2023 01:03-0500 Body mass index (BMI) [Ratio] 24.1 kg/m2 Dr. Scott Mejia Work Phone: [facility] 10-16-2023 13:37-0500 Body height 175.[address] Scott Mejia Work Phone: [facility] 10-16-2023 13:37-0500 Body weight 74.[address] Scott Mejia Work Phone: [facility] 10-13-2023 09:53-0500 Inhaled oxygen flow rate 1 L/min Dr. Scott Mejia Work Phone: [facility] 10-12-2023 12:03-0500 Diastolic blood pressure 87 mm[Hg] Dr. Scott Mejia Work Phone: [facility] 10-12-2023 12:03-0500 Heart rate 81 /min Dr. Scott Mejia Work Phone: [facility] 10-12-2023 12:03-0500 Respiratory rate 18 /min Dr. Scott Mejia Work Phone: [facility] 10-12-2023 12:03-0500 SaO2% (BldA) [Mass fraction] 94 % Dr. Scott Mejia Work Phone: [facility] 10-12-2023 12:03-0500 Systolic blood pressure 158 mm[Hg] Dr. Scott Mejia Work Phone: [facility] 10-12-2023 11:06-0500 Inhaled oxygen flow rate 2 L/min Dr. Scott Mejia Work Phone: [facility] 10-12-2023 09:57-0500 Body height 175.[address] Scott Mejia Work Phone: [facility] 10-12-2023 09:57-0500 Body mass index (BMI) [Ratio] 0 kg/m2 Dr. cSott Mejia Work Phone: [facility] 10-12-2023 09:57-0500 Body temperature 0 [degF] Dr. Scott Mejia Work Phone: [facility] 10-12-2023 09:57-0500 Body weight [address] Scott Mejia Work Phone: [facility] 10-12-2023 09:41-0500 Diastolic blood pressure 70 mm[Hg] Dr. Scott Mejia Work Phone: [facility] 10-12-2023 09:41-0500 Heart rate 93 /min Dr. Scott Mejia Work Phone: [facility] 10-12-2023 09:41-0500 Respiratory rate 20 /min Dr. Scott Mejia Work Phone: [facility] 10-12-2023 09:41-0500 Systolic blood pressure 106 mm[Hg] Dr. Scott Mejia Work Phone: [facility] 10-12-2023 08:00-0500 Body mass index (BMI) [Ratio] 23.6 kg/m2 Dr. Scott Mejia Work Phone: [facility] 10-12-2023 08:00-0500 Body temperature 97.7 [degF] Dr. Scott Mejia Work Phone: [facility] 10-12-2023 08:00-0500 Body weight 72.[address] Scott Mejia Work Phone: 3(479)752-174349 [place] [address] 10-12-2023 08:00-0500 SaO2% (BldA) [Mass fraction] 95 % Dr. Scott Mejia Work Phone: 4(881)361-387256 [address] 09-26-2023 08:41-0500 Body height 175.[address] Scott Mejia Work Phone: 9(604)207-261756 [address] 09-26-2023 08:41-0500 Body mass index (BMI) [Ratio] 23.9 kg/m2 Dr. Scott Mejia Work Phone: [facility] 09-26-2023 08:41-0500 Body temperature 97.2 [degF] Dr. Scott Mejia Work Phone: 6(290)[phone] [place] [address] 09-26-2023 08:41-0500 Body weight 73.[address] Scott Mejia Work Phone: 8(468)685-448149 [place] [address] 09-26-2023 08:41-0500 Diastolic blood pressure 96 mm[Hg] Dr. Scott Mejia Work Phone: 9(334)328-566249 [place] [address] 09-26-2023 08:41-0500 Heart rate 75 /min Dr. Scott Mejia Work Phone: 5(830)415-480949 [place] [address] 09-26-2023 08:41-0500 Respiratory rate 18 /min Dr. Scott Mejia Work Phone: 6(750)[phone] [address] 09-26-2023 08:41-0500 SaO2% (BldA) [Mass fraction] 96 % Dr. Scott Mejia Work Phone: 7(423)754-755949 [place] [address] 09-26-2023 08:41-0500 Systolic blood pressure 160 mm[Hg] Dr. Scott Mejia Work Phone: [facility] Encounters Encounter Date Encounter Type Care Provider Facility Start: 08-04-2025 End: 08-04-2025 ambulatory Azucena Cai NP Facility:[facility] Start: 07-27-2025 End: 07-27-2025 ambulatory Scott Mejia Facility:[facility] Start: 03-24-2025 End: 03-24-2025 Patient encounter procedure Dayami Montes De Oca SEMICONDUCTOR EQUIPMENT TECHNICIAN-C -[facility] Work Phone: Start: 03-24-2025 End: 03-24-[address] Scott Mejia MD Work Phone: -[facility] Start: 02-02-2025 End: 05-01-2025 ambulatory TANIYA JACQUES MD Facility:[facility] Start: 02-02-2025 End: 05-01-2025 Physical therapy management TANIYA JACQUES MD [facility] Start: 01-26-2025 End: 01-26-2025 Patient encounter procedure Azucena Cai SEMICONDUCTOR EQUIPMENT TECHNICIAN-C -[facility] Work Phone: Start: 01-26-2025 End: 01-26-2025 ambulatory Azucena Cai NP Facility:[facility] Start: 01-19-2025 End: 01-20-2025 Emergency department patient visit TANIYA JACQUES MD [facility] Start: 01-19-2025 End: 01-19-2025 Emergency department patient visit Dr. Lucius Thapa -Emergency Department Work Phone: Start: 01-15-2025 End: 01-15-[address] Scott Mejia MD -Laboratory Specimen Work Phone: Start: 01-15-2025 End: 01-15-2025 ambulatory Scott Mejia Facility:[facility] Start: 01-07-2025 Non-patient / Non-visit Dr. Pao Ruiz MD -[facility] Work Phone: Start: 01-07-2025 ambulatory Scott Mejia Facility:[facility] Start: 01-07-2025 Registered Referred Azucena Stoner -Cardiovascular Services Work Phone: Start: 01-05-2025 End: 01-06-2025 Evaluation and management of inpatient MANDO Zamorano MEGHAN DO [facility] Start: 12-30-2024 ambulatory Scott Mejia Facility:[facility] Start: 12-30-2024 Non-patient / Non-visit [facility] Start: 12-30-2024 End: 12-30-[address] Scott Mejia MD Work Phone: [facility] Work Phone: Start: 12-30-2024 End: 12-30-2024 Patient encounter procedure Azucena PATEL -Cardiovascular Services Work Phone: Start: 12-30-2024 End: 12-30-2024 ambulatory Scott Mejia Facility:[facility] Start: 12-25-2024 End: 12-25-2024 Patient encounter procedure Azucena PATEL -[facility] Work Phone: Start: 12-25-2024 End: 12-25-2024 ambulatory Scott Mejia Facility:[facility] Start: 12-22-2024 End: 12-22-2024 Admission to establishment MANDOSHELLIE FISCHER DO [facility] Start: 12-22-2024 End: 12-22-2024 ambulatory MANDO FISCHER DO Facility:A Start: 12-11-2024 End: 12-11-[address] Scott Mejia MD Work Phone: [facility] Work Phone: Start: 12-11-2024 End: 12-11-[address] Anthony Dewitt MD -Radiology, [facility] Work Phone: Start: 12-11-2024 End: 12-11-2024 ambulatory Scott Mejia Facility:[facility] Start: 11-03-2024 End: 11-03-[address] Carole Ruiz MD -Laboratory Work Phone: Start: 11-03-2024 End: 11-03-2024 ambulatory Scott Mejia Facility:[facility] Start: 10-06-2024 End: 10-06-[address] SCOTT MEJIA MD Facility:[facility] Start: 10-06-2024 End: 10-06-2024 Patient encounter procedure MANDO FISCHER DO [facility] Start: 09-19-[address] SOCTT MEJIA MD Fa cility:[facility] Start: 08-18-2024 End: 08-22-2024 ambulatory MANDO FISCHER DO Facility:[facility] Start: 08-18-2024 End: 08-22-2024 Observation MANDO FISCHER DO [facility] Start: 08-04-2024 End: 08-04-2024 Admission to establishment MANDO Jaun FISCHER DO [facility] Start: 08-04-2024 End: 08-04-2024 ambulatory MANDO FISCHER DO Facility:[facility] Start: 04-29-2024 ambulatory MANDO FISCHER DO Fa cility:A Start: 02-04-2024 Evaluation and manag ement of inpatient Dr. Scott Mejia Work Phone: [facility]-Intensive Care Unit Work Phone: Start: 02-01-2024 ambulatory MANDO FISCHER DO Fa cility:[facility] Start: 12-26-2023 End: 12-26-[address] Scott Mejia Work Phone: [facility] Work Phone: Start: 12-26-2023 End: 12-26-[address] Scott Mejia Work Phone: [facility]-Cat Scan, [facility] Work Phone: Start: 11-20-2023 Telephone encounter Bonita ray PA-C Work Phone: Neurology Comment on above: Copy of MRI Disk Start: 11-20-2023 End: 11-20-2023 Patient encounter procedure Bonita Medrano PA-C Work Phone: Neurology Comment on above: Cervical stenosis of spine (Primary Dx); Spinal stenosis of lumbar region without neurogenic claudication Start: 11-12-2023 ambulatory JL ANAYA Facilit y:[id number] Start: 11-12-2023 End: 11-12-2023 Subsequent hospital visit by physician [employer] [facility] Work Phone: [facility] Comment on above: Stroke-like symptoms [R29.90] Spinal stenosis of l umbar region without neurogenic claudication [M48.061] Spinal stenosis of c ervical region [M48.02] Start: 10-30-2023 Non-patient / Non-visit Dr. Ann Mejia Work Phone: [facility] Work Phone: Start: 10-30-[address] Scott simpson Work Phone: [facility]-Cardiovascula r Services Work Phone: Start: 10-25-2023 End: 10-25-[address] Scott Mejia Work Phone: [facility] Medicine [facility] Work Phone: Start: 10-24-2023 Telephone encounter Jl Anaya MD Work Phone: Neurology Comment on above: [employer] Start: 10-24-2023 End: 10-24-2023 ambulatory JL ANAYA Facility:[facility] Start: 10-17-2023 Non-patient / Non-visit Dr. Ann Mejia Work Phone: [facility] Work Phone: Start: 10-16-2023 Non-patient / Non-visit Dr. Ann Mejia Work Phone: [facility] Work Phone: Start: 10-15-2023 Non-patient / Non-visit Dr. Ann Mejia Work Phone: [facility] Work Phone: Start: 10-14-2023 Non-patient / Non-visit Dr. Ann Mejia Work Phone: [facility] Work Phone: Start: 10-13-2023 End: 10-17-2023 Evaluation and management of inpatient Dr. Scott Mejia Work Phone: [facility] Work Phone: Start: 10-13-2023 Non-patient / Non-visit Dr. Ann Mejia Work Phone: [facility] Work Phone: Start: 10-13-2023 Non-patient / Non-visit Dr. Ann Mejia Work Phone: [facility] Start: 10-12-2023 ambulatory MANDO FISCHER DO Fa cility:B Start: 10-12-2023 Non-patient / Non-visit Dr. Ann Mejia Work Phone: [facility] Work Phone: Start: 10-12-2023 Evaluation and manag ement of inpatient Dr. Scott Mejia [facility] Work [facility]: Start: 10-12-[address] Scott Mejia Work Phone: [facility] Work Phone: Start: 10-12-2023 End: 10-12-[address] Scott Mejia Work Phone: [facility] Work Phone: Start: 10-12-2023 End: 10-12-[address] Scott Mejia Work Phone: [facility]-Cat Scan, [facility] Work Phone: Start: 09-26-2023 End: 09-26-[address] Scott Mejia Work Phone: [facility] Work Phone: Start: 09-26-2023 End: 09-26-[address] Scott Mejia Work Phone: [facility] Work Phone: Start: 09-18-2023 End: 09-18-[address] Scott Mejia Work Phone: [facility] Work Phone: Start: 09-18-2023 End: 09-18-[address] Scott Mejia Work Phone: [facility] Start: 09-04-2023 Non-patient / Non-visit Dr. Ann Mejia Work Phone: [facility] Start: 09-04-2023 End: 09-04-[address] Scott Mejia Work Phone: [facility]-Cardiovascula r Services Work Phone: Start: 08-24-2023 End: 08-24-[address] Scott Mejia Work Phone: [facility] Work Phone: Start: 08-24-2023 End: 08-24-[address] Scott Mejia Work Phone: [facility]-Physical Therapy Work Phone: Start: 08-24-[address] Scott Mejia Work Phone: [facility]-Physical Therapy Work Phone: Start: 08-23-2023 Non-patient / Non-visit Dr. Ann Mejia Work Phone: [facility] Start: 08-23-2023 End: 08-23-[address] Scott Mejia Work Phone: [facility] Work Phone: Start: 08-23-2023 End: 08-23-[address] Scott Mejia Work Phone: [facility]-Pulmonary Services/Neurology Work Phone: Start: 08-13-2023 End: 08-13-2023 ambulatory [facility] Work Phone: Start: 08-13-2023 End: 08-13-2023 Patient encounter procedure [facility] Work Phone: Start: 08-10-2023 Registered Recurring [facility]Physical Therapy Work Phone: Start: 08-10-2023 End: 08-10-2023 ambulatory [facility] Work Phone: Start: 08-10-2023 End: 08-10-2023 Patient encounter procedure [facility]-Cardiovascula r Services Work Phone: Start: 07-31-2023 Telephone encounter Neurology Provid er Neurology Comment on above: Referral Request Start: 07-02-2023 End: 07-02-2023 ambulatory [facility] Work Phone: Start: 07-02-2023 End: 07-02-2023 Patient encounter procedure [facility] Start: 04-06-2023 End: 04-06-2023 ambulatory [facility] Work Phone: Start: 04-06-2023 End: 04-06-2023 Patient encounter procedure [facility] Date Procedure Procedure Detail Performing Clinician Start: 01-19-2025 Urnls dip stick/tabl et reagent auto microscopy Dr. Scott Mejia MD Work Phone: Start: 01-19-2025 X-ray of chest, PA a nd lateral views Dr. Scott Mejia MD Work Phone: Start: 01-19-[address] Scott Mejia MD Work Phone: Start: 01-15-[address] Scott Mejia MD Work Phone: Start: 12-30-2024 Cardiovascular stres s test using pharmacologic stress agent Dr. Scott Mejia MD Work Phone: Start: 12-25-2024 Evaluation of diagno stic study results Dr. Scott Mejia MD Work Phone: Start: 12-11-2024 X-ray of esophagus w ith double contrast Dr. Scott Mejia MD Work Phone: Start: 01-23-2024 Cardiac catheterization MANDO FISCHER DO Comment on above: 5 stents placed Start: 01-23-2024 Placement of stent JUS FISCHER DO Comment on above: x6 Start: 12-26-2023 CT of chest without contrast Dr. Scott Mejia Work Phone: Start: 12-24-2023 Biopsy of lung MANDO MEGHAN DO Start: 11-12-2023 Mri brain brain stem w/o contrast material Jl Anaya MD Work Phone: Start: 10-13-2023 End: 10-13-2023 Plain chest X-ray Dr. Scott Mejia Work Phone: Start: 10-12-2023 MRI of brain without contrast Dr. Scott Mejia Work Phone: Start: 10-12-2023 CT angiography of he ad and neck Dr. Scott Mejia Work Phone: Start: 10-12-2023 CT of head without contrast Dr. Scott Mejia Work Phone: Start: 10-12-2023 End: 10-12-2023 Plain chest X-ray Dr. Scott Mejia Work Phone: Start: 10-12-2023 Biopsy/Inj or Needle Placement Dr. Scott Mejia Work Phone: Start: 09-18-2023 Positron emission to mography with computed tomography Dr. Scott Mejia Work Phone: Start: 09-04-2023 CT of thorax with contrast Dr. Scott Mejia Work Phone: Start: 08-13-2023 MRI of brain without contrast Start: 08-10-2023 CT of chest Start: 09-24-2008 Cardiac catheterization MANDO FISCHER DO Comment on above: 1 stent placed 2009 Start: 09-24-1996 Lumbar microdiscectomy MANDO FISCHER DO Comment on above: Lumbar region Cervical arthrodesis MANDO FISCHER DO Plan of Treatment Date Care Activity Detail Author Start: 04-20-2026 Urine microalbumin profile DTaP,Tdap,Td Vaccine (2 - Td or Tdap) [facility] Start: 01-19-2025 [facility] Start: 01-19-2025 [facility] Start: 05-25-2024 Covid-19 Vaccine ( season) Covid-19 Vaccine ( season) [facility] Start: 05-25-2024 Influenza vaccination Influenza Vaccine (#1) [facility] Start: 02-04-2024 Catheterization of left heart [facility] Start: 02-04-2024 Plain chest X-ray Chest 1 View (Portable) [facility] Start: 02-04-2024 XR Chest Single view [facility] Start: 02-04-2024 Blood chemistry [facility] Start: 02-04-2024 Hospital admission, emergency, from emergency room, medical nature [facility] Start: 02-04-2024 Troponin I measurement [facility] Start: 02-04-2024 [facility] Start: 10-21-2023 Blood chemistry [facility] Start: 10-20-2023 Blood chemistry [facility] Start: 10-19-2023 Blood chemistry [facility] Start: 10-18-2023 Blood chemistry [facility] Start: 10-17-2023 Patient discharge [facility] Start: 10-17-2023 Blood chemistry [facility] Start: 10-13-2023 Admission procedure [facility] Start: 10-12-2023 Vital signs measurements [facility] Start: 10-12-2023 Cardiac monitoring [facility] Start: 10-12-2023 Catheterization of vein [facility] Start: 10-12-2023 Continuous pulse oximetry [facility] Start: 10-12-2023 Elevation of head of bed [facility] Start: 10-12-2023 Exercises [facility] Start: 10-12-2023 Implementation of planned interventions [facility] Start: 10-12-2023 Notification of physician [facility] Start: 10-12-2023 Oxygen therapy [facility] Start: 10-12-2023 Referral to occupational therapist [facility] Start: 10-12-2023 Referral to service [facility] Start: 10-12-2023 Speech therapy assessment [facility] Start: 10-12-2023 Telemedicine consultation with patient [facility] Start: 10-12-2023 Tobacco use cessation education [facility] Start: 10-12-2023 [facility] Start: 10-12-2023 CORE NDL BX LNG/MED PERQ CORE NDL BX LNG/MED PERQ [facility] Start: 10-12-2023 Following clinical pathway protocol [facility] Start: 10-12-2023 Assessment of risk of venous thromboembolism [facility] Start: 10-12-2023 Inhalation therapy procedure [facility] Start: 10-12-2023 Insertion of catheter into peripheral vein [facility] Start: 10-12-2023 Measuring intake and output [facility] Start: 10-12-2023 Providing care according to standard [facility] Start: 10-12-2023 Provision of activity privileges [facility] Start: 10-12-2023 [facility] Start: 10-12-2023 Verification routine [facility] Start: 10-12-2023 Admission procedure [facility] Start: 10-12-2023 Hospital admission, emergency, from emergency room, medical nature [facility] Start: 10-12-2023 [facility] Start: 10-12-2023 Following clinical pathway protocol [facility] Start: 10-12-2023 Catheterization of vein [facility] Start: 10-12-2023 Oxygen therapy [facility] Start: 10-12-2023 Patient discharge [facility] Start: 10-12-2023 Vital signs measurements [facility] Start: 09-24-2023 Advance Directive Discussion Advance Directive Discussion [facility] Start: 09-24-2023 Depression Assessment Depression Assessment [facility] Start: 05-25-2023 Influenza vaccination Influenza Vaccine (#1) [facility] Start: 03-09-2021 Pneumococcal Vaccine: 65+ (2 of 2 - PCV) Pneumococcal Vaccine: 65+ (2 of 2 - PCV) [facility] Start: 2014 RSV Vaccine (1 - 1-dose 60+ series) RSV Vaccine (1 - 1-dose 60+ series) [facility] Start: 2004 Shingrix Vaccine (1 of 2) Shingrix Vaccine (1 of 2) [facility] Start: 1999 Diabetes Screening Diabetes Screening [facility] Start: 1999 Screening for malignant neoplasm of colon [facility] Start: 1989 Lipid panel Lipid Screening [facility] Start: 1972 Anxiety Screening Anxiety Screening [facility] Start: 1972 Depression Screening Depression Screening [facility] Start: 1972 Hepatitis C screening Hepatitis C Screening [facility] Start: 1954 Covid-19 Vaccine (#1) Covid-19 Vaccine (#1) [facility] Start: 1954 Abdominal aortic aneurysm screening Abdominal Aortic Aneurysm Screening [facility] Anion gap measurement [facility] Anion gap measurement [facility] BUN/Creatinine ratio [facility] BUN/Creatinine ratio [facility] BUN/Creatinine ratio [facility] BUN/Creatinine ratio [facility] BUN/Creatinine ratio [facility] BUN/Creatinine ratio [facility] Calcium [Mass/volume ] in Serum or Plasma [facility] Calcium [Mass/volume ] in Serum or Plasma [facility] Calcium [Mass/volume ] in Serum or Plasma [facility] Calcium [Mass/volume ] in Serum or Plasma [facility] Calcium [Mass/volume ] in Serum or Plasma [facility] Calcium [Mass/volume ] in Serum or Plasma [facility] Carbon dioxide, tota l [Moles/volume] in Serum or Plasma [facility] Carbon dioxide, tota l [Moles/volume] in Serum or Plasma [facility] Carbon dioxide, tota l [Moles/volume] in Serum or Plasma [facility] Carbon dioxide, tota l [Moles/volume] in Serum or Plasma [facility] Carbon dioxide, tota l [Moles/volume] in Serum or Plasma [facility] Carbon dioxide, tota l [Moles/volume] in Serum or Plasma [facility] Cardiac event recording [facility] Cardiac event recording [facility] Chloride [Moles/volu me] in Serum or Plasma [facility] Chloride [Moles/volu me] in Serum or Plasma [facility] Chloride [Moles/volu me] in Serum or Plasma [facility] Chloride [Moles/volu me] in Serum or Plasma [facility] Chloride [Moles/volu me] in Serum or Plasma [facility] Chloride [Moles/volu me] in Serum or Plasma [facility] Creatinine [Moles/vo lume] in Serum or Plasma [facility] Creatinine [Moles/vo lume] in Serum or Plasma [facility] Creatinine [Moles/vo lume] in Serum or Plasma [facility] Creatinine [Moles/vo lume] in Serum or Plasma [facility] Creatinine [Moles/vo lume] in Serum or Plasma [facility] Creatinine [Moles/vo lume] in Serum or Plasma [facility] CT Chest [facility] CT Chest WO contrast [facility] Erythrocyte mean corpuscular volume determination [facility] Erythrocyte mean corpuscular volume determination [facility] Erythrocyte mean corpuscular volume determination [facility] Erythrocyte mean corpuscular volume determination [facility] Erythrocyte mean corpuscular volume determination [facility] Glucose [Mass/volume ] in Serum or Plasma [facility] Glucose [Mass/volume ] in Serum or Plasma [facility] Glucose [Mass/volume ] in Serum or Plasma [facility] Glucose [Mass/volume ] in Serum or Plasma [facility] Glucose [Mass/volume ] in Serum or Plasma [facility] Glucose [Mass/volume ] in Serum or Plasma [facility] Hematocrit [Volume Fraction] of Blood [facility] Hematocrit [Volume Fraction] of Blood [facility] Hematocrit [Volume Fraction] of Blood [facility] Hematocrit [Volume Fraction] of Blood [facility] Hematocrit [Volume Fraction] of Blood [facility] Hemoglobin [Mass/vol ume] in Blood [facility] Hemoglobin [Mass/vol ume] in Blood [facility] Hemoglobin [Mass/vol ume] in Blood [facility] Hemoglobin [Mass/vol ume] in Blood [facility] Hemoglobin [Mass/vol ume] in Blood [facility] Leukocytes [#/volume ] in Blood [facility] Leukocytes [#/volume ] in Blood [facility] Leukocytes [#/volume ] in Blood [facility] Leukocytes [#/volume ] in Blood [facility] Leukocytes [#/volume ] in Blood [facility] Mean corpuscular hemoglobin concentration determination [facility] Mean corpuscular hemoglobin concentration determination [facility] Mean corpuscular hemoglobin concentration determination [facility] Mean corpuscular hemoglobin concentration determination [facility] Mean corpuscular hemoglobin concentration determination [facility] Mean corpuscular hemoglobin determination [facility] Mean corpuscular hemoglobin determination [facility] Mean corpuscular hemoglobin determination [facility] Mean corpuscular hemoglobin determination [facility] Mean corpuscular hemoglobin determination [facility] Measurement of renal function [facility] Measurement of renal function [facility] Measurement of renal function [facility] Measurement of renal function [facility] Measurement of renal function [facility] Measurement of renal function [facility] Neutrophil count [facility] Neutrophil count [facility] Neutrophil count [facility] Neutrophil count [facility] Neutrophil count [facility] Neutrophil percent differential count [facility] Neutrophil percent differential count [facility] Neutrophil percent differential count [facility] Neutrophil percent differential count [facility] Neutrophil percent differential count [facility] Patient Education RAD RN Dischar ge Instructions Needle Biopsy: Lung RAD RN Procedural Sedation [facility] Work Phone: Patient referral [facility] Work Phone: Platelets [#/volume] in Blood [facility] Platelets [#/volume] in Blood [facility] Platelets [#/volume] in Blood [facility] Platelets [#/volume] in Blood [facility] Platelets [#/volume] in Blood [facility] Potassium [Moles/vol ume] in Serum or Plasma [facility] Potassium [Moles/vol ume] in Serum or Plasma [facility] Potassium [Moles/vol ume] in Serum or Plasma [facility] Potassium [Moles/vol ume] in Serum or Plasma [facility] Potassium [Moles/vol ume] in Serum or Plasma [facility] Potassium [Moles/vol ume] in Serum or Plasma [facility] Red blood cell count [facility] Red blood cell count [facility] Red blood cell count [facility] Red blood cell count [facility] Red blood cell count [facility] Red cell distributio n width determination [facility] Red cell distributio n width determination [facility] Red cell distributio n width determination [facility] Red cell distributio n width determination [facility] Red cell distributio n width determination [facility] Sodium [Moles/volume ] in Serum or Plasma [facility] Sodium [Moles/volume ] in Serum or Plasma [facility] Sodium [Moles/volume ] in Serum or Plasma [facility] Sodium [Moles/volume ] in Serum or Plasma [facility] Sodium [Moles/volume ] in Serum or Plasma [facility] Sodium [Moles/volume ] in Serum or Plasma [facility] Urea nitrogen [Mass/volume] in Serum or Plasma [facility] Urea nitrogen [Mass/volume] in Serum or Plasma [facility] Urea nitrogen [Mass/volume] in Serum or Plasma [facility] Urea nitrogen [Mass/volume] in Serum or Plasma [facility] Urea nitrogen [Mass/volume] in Serum or Plasma [facility] Urea nitrogen [Mass/volume] in Serum or Plasma [facility] Immunizations Immunization Date Immunization Notes Care Provider Leny nassar 03-09-2020 pneumococcal polysaccharide vaccine, 23 valent MANDO FISCHER DO [facility] 04-20-2016 tetanus toxoid, redu pollo diphtheria toxoid, and acellular pertussis vaccine, adsorbed MANDO FISCHER DO [facility] 04-07-2010 pneumococcal polysaccharide vaccine, 23 valent MANDO FISCHER DO [facility] Comment on above: Reason for Medicatio n: Other (see order comments) Payers Date Payer Category Payer Private Health Insurance [id number] 2024 Medicare [id number] 2024 Medicare [id number] 2024 Self-pay [id number] 2021 Medicare [id number] 2021 Unknown [id number] 1954 Unknown [id number] 2.16.8 40.1.540141.3.579.2.627 1954 Unknown [id number] 2.16.8 40.1.189348.3.579.2.627 1954 Unknown [id number] 2.16.8 40.1.183174.3.579.2.627 1954 Unknown [id number] 2.16.8 40.1.477996.3.579.2.627 1954 Unknown [id number] 2.16.8 40.1.296452.3.579.2.627 1954 Unknown [id number] 2.16.8 40.1.736935.3.579.2.627 1954 Unknown [id number] 2.16.8 40.1.452713.3.579.2.62 1954 Unknown [id number] 2.16.8 40.1.130308.3.579.2.627 1954 Unknown [id number] 2.16. 840.1.157565.3.579.2. 1954 Unknown [id number] 2.16.8 40.1.534784.3.579.2.62 1954 Unknown [id number] 2.16.8 40.1.407926.3.579.2.62 Unknown [id number] Unknown ANTHEM [id number] Unknown [id number] 2.16.8 40.1.048385.3.579.2.462 Unknown [id number] 2.16.8 40.1.854699.3.579.2.462 Unknown [id number] 2.16.8 40.1.212535.3.579.2.462 Unknown [id number] 2.16.8 40.1.886154.3.579.2.462 Unknown [id number] 2.16.8 40.1.150493.3.579.2.462 Unknown [id number] 2.16.8 40.1.177306.3.579.2.462 Unknown [id number] 2.16.8 40.1.397516.3.579.2.462 Unknown [id number] 2.16.8 40.1.802334.3.579.2.462 Unknown [id number] 2.16.8 40.1.566482.3.579.2.462 Unknown [id number] 2.16.8 40.1.372546.3.579.2.462 Unknown [id number] 2.16.8 40.1.413140.3.579.2.462 Unknown [id number] 2.16.8 40.1.603523.3.579.2.462 Unknown [id number] 2.16.8 40.1.577136.3.579.2.462 Social History Date Type Detail Facility Tobacco smoking stat us VAIS Unknown if ever smoked [facility] Work Phone: Start: 1955 Sex Assigned At Male [facility] Start: 09-26-2023 End: 02-04-2024 Tobacco smoking status NHIS Tobacco smoking consumption unknown [facility] Work Phone: Start: 1955 Sex Assigned At Not on file [facility] Start: 10-24-2023 End: 11-20-2023 Gender identity Not on file [facility] Start: 10-17-2023 Cigarettes [facility] Start: 10-24-2023 End: 11-20-2023 Tobacco smoking status NHIS Smokes tobacco daily [facility] History of tobacco use Cigarette Smoker [facility] Start: 10-24-2023 End: 11-20-2023 Cigarettes smoked current (pack per day) - Reported 1 [facility] National Score (1-10 0), lower number is lower risk 67 [facility] Start: 10-21-2023 Gender identity Identifies as male gender (finding) [facility] Start: 10-21-2023 Sexual orientation Heterosexual (fin ding) [facility] Start: 11-20-2023 Tobacco use and exposure Smokeless tobacco non-user [facility] Start: 08-04-2024 End: 10-21-2024 Tobacco smoking status Ex-smoker (finding) [facility] Sex Assigned At [facility] Start: 04-05-2010 End: 01-02-2025 Sex Male (finding) [facility] Medical Equipment Procedure Code Equipment Code Equipment Original Text Equipment Identifier Dates Anterior Cervica l Discectomy/Fusion 3 Le Unknown 08/18/24 Unknown Unknown FDA Start: 08-18-2024 Anterior Cervica l Discectomy/Fusion 3 Le Unknown 08/18/24 Unknown Unknown FDA Start: 08-18-2024 Anterior Cervica l Discectomy/Fusion 3 Le Unknown 08/18/24 Unknown Unknown FDA Start: 08-18-2024 Anterior Cervica l Discectomy/Fusion 3 Le Unknown 08/18/24 Unknown Unknown FDA Start: 08-18-2024 Anterior Cervica l Discectomy/Fusion 3 Le Unknown 08/18/24 Unknown Unknown FDA Start: 08-18-2024 Anterior Cervica l Discectomy/Fusion 3 Le Unknown 08/18/24 Unknown Unknown FDA Start: 08-18-2024 Anterior Cervica l Discectomy/Fusion 3 Le Unknown 08/18/24 Unknown Unknown FDA Start: 08-18-2024 Anterior Cervica l Discectomy/Fusion 3 Le Unknown 08/18/24 Unknown Unknown FDA Start: 08-18-2024 Anterior Cervica l Discectomy/Fusion 3 Le Unknown 08/18/24 Unknown Unknown FDA Start: 08-18-2024 Anterior Cervica l Discectomy/Fusion 3 Le Unknown 08/18/24 Unknown Unknown FDA Start: 08-18-2024 Anterior Cervica l Discectomy/Fusion 3 Le Unknown 08/18/24 Unknown Unknown FDA Start: 08-18-2024 Anterior Cervica l Discectomy/Fusion 3 Le Unknown 08/18/24 Unknown Unknown FDA Start: 08-18-2024 Anterior Cervica l Discectomy/Fusion 3 Le Unknown 08/18/24 Unknown Unknown FDA Start: 08-18-2024 Anterior Cervica l Discectomy/Fusion 3 Le Unknown 08/18/24 Unknown Unknown FDA Start: 08-18-2024 Drug-eluting cor onary artery stent, [id number]-[id number] r-coated ()[id number] FDA Start: 02-05-2024 Drug-eluting cor onary artery stent, awr-[id number]-[id number] r-coated ()[id number] FDA Start: 02-05-2024 Drug-eluting cor onary artery stent, [id number]-[id number] r-coated ()[id number] FDA Start: 02-05-2024 Drug-eluting cor onary artery stent, [id number]-frysqq r-coated ()[id number] FDA Start: 02-05-2024 Drug-eluting cor onary artery stent, [id number] r-coated ()[id number] FDA Start: 02-05-2024 Anterior Cervica l Discectomy/Fusion 3 Le Unknown 08/18/24 Unknown Unknown FDA Start: 08-18-2024 Anterior Cervica l Discectomy/Fusion 3 Le Unknown 08/18/24 Unknown Unknown FDA Start: 08-18-2024 Anterior Cervica l Discectomy/Fusion 3 Le Unknown 08/18/24 Unknown Unknown FDA Start: 08-18-2024 Anterior Cervica l Discectomy/Fusion 3 Le Unknown 08/18/24 Unknown Unknown FDA Start: 08-18-2024 Anterior Cervica l Discectomy/Fusion 3 Le Unknown 08/18/24 Unknown Unknown FDA Start: 08-18-2024 Anterior Cervica l Discectomy/Fusion 3 Le Unknown 08/18/24 Unknown Unknown FDA Start: 08-18-2024 Anterior Cervica l Discectomy/Fusion 3 Le Unknown 08/18/24 Unknown Unknown FDA Start: 08-18-2024 Anterior Cervica l Discectomy/Fusion 3 Le Unknown 08/18/24 Unknown Unknown FDA Start: 08-18-2024 Anterior Cervica l Discectomy/Fusion 3 Le Unknown 08/18/24 Unknown Unknown FDA Start: 08-18-2024 Anterior Cervica l Discectomy/Fusion 3 Le Unknown 08/18/24 Unknown Unknown FDA Start: 08-18-2024 Anterior Cervica l Discectomy/Fusion 3 Le Unknown 08/18/24 Unknown Unknown FDA Start: 08-18-2024 Anterior Cervica l Discectomy/Fusion 3 Le Unknown 08/18/24 Unknown Unknown FDA Start: 08-18-2024 Anterior Cervica l Discectomy/Fusion 3 Le Unknown 08/18/24 Unknown Unknown FDA Start: 08-18-2024 Anterior Cervica l Discectomy/Fusion 3 Le Unknown 08/18/24 Unknown Unknown FDA Start: 08-18-2024 Posterior Cervic al Instrumentation with Unknown 01/05/25 Unknown Unknown FDA Start: 01-05-2025 Posterior Cervic al Instrumentation with Unknown 01/05/25 Unknown Unknown FDA Start: 01-05-2025 Posterior Cervic al Instrumentation with Unknown 01/05/25 Unknown Unknown FDA Start: 01-05-2025 Posterior Cervic al Instrumentation with Unknown 01/05/25 Unknown Unknown FDA Start: 01-05-2025 Posterior Cervic al Instrumentation with Unknown 01/05/25 Unknown Unknown FDA Start: 01-05-2025 Posterior Cervic al Instrumentation with Unknown 01/05/25 Unknown Unknown FDA Start: 01-05-2025 Posterior Cervic al Instrumentation with Unknown 01/05/25 Unknown Unknown FDA Start: 01-05-2025 Posterior Cervic al Instrumentation with Unknown 01/05/25 Unknown Unknown FDA Start: 01-05-2025 Posterior Cervic al Instrumentation with Unknown 01/05/25 Unknown Unknown FDA Start: 01-05-2025 Posterior Cervic al Instrumentation with Unknown 01/05/25 Unknown Unknown FDA Start: 01-05-2025 Anterior Cervica l Discectomy/Fusion 3 Le Unknown 08/18/24 Unknown Unknown FDA Start: 08-18-2024 Anterior Cervica l Discectomy/Fusion 3 Le Unknown 08/18/24 Unknown Unknown FDA Start: 08-18-2024 Anterior Cervica l Discectomy/Fusion 3 Le Unknown 08/18/24 Unknown Unknown FDA Start: 08-18-2024 Anterior Cervica l Discectomy/Fusion 3 Le Unknown 08/18/24 Unknown Unknown FDA Start: 08-18-2024 Anterior Cervica l Discectomy/Fusion 3 Le Unknown 08/18/24 Unknown Unknown FDA Start: 08-18-2024 Anterior Cervica l Discectomy/Fusion 3 Le Unknown 08/18/24 Unknown Unknown FDA Start: 08-18-2024 Anterior Cervica l Discectomy/Fusion 3 Le Unknown 08/18/24 Unknown Unknown FDA Start: 08-18-2024 Posterior Cervic al Instrumentation with Unknown 01/05/25 Unknown Unknown FDA Start: 01-05-2025 Posterior Cervic al Instrumentation with Unknown 01/05/25 Unknown Unknown FDA Start: 01-05-2025 Posterior Cervic al Instrumentation with Unknown 01/05/25 Unknown Unknown FDA Start: 01-05-2025 Posterior Cervic al Instrumentation with Unknown 01/05/25 Unknown Unknown FDA Start: 01-05-2025 Posterior Cervic al Instrumentation with Unknown 01/05/25 Unknown Unknown FDA Start: 01-05-2025 Posterior Cervic al Instrumentation with Unknown 01/05/25 Unknown Unknown FDA Start: 01-05-2025 Posterior Cervic al Instrumentation with Unknown 01/05/25 Unknown Unknown FDA Start: 01-05-2025 Posterior Cervic al Instrumentation with Unknown 01/05/25 Unknown Unknown FDA Start: 01-05-2025 Posterior Cervic al Instrumentation with Unknown 01/05/25 Unknown Unknown FDA Start: 01-05-2025 Posterior Cervic al Instrumentation with Unknown 01/05/25 Unknown Unknown FDA Start: 01-05-2025 Anterior Cervica l Discectomy/Fusion 3 Le Unknown 08/18/24 Unknown Unknown FDA Start: 08-18-2024 Anterior Cervica l Discectomy/Fusion 3 Le Unknown 08/18/24 Unknown Unknown FDA Start: 08-18-2024 Anterior Cervica l Discectomy/Fusion 3 Le Unknown 08/18/24 Unknown Unknown FDA Start: 08-18-2024 Anterior Cervica l Discectomy/Fusion 3 Le Unknown 08/18/24 Unknown Unknown FDA Start: 08-18-2024 Anterior Cervica l Discectomy/Fusion 3 Le Unknown 08/18/24 Unknown Unknown FDA Start: 08-18-2024 Anterior Cervica l Discectomy/Fusion 3 Le Unknown 08/18/24 Unknown Unknown FDA Start: 08-18-2024 Anterior Cervica l Discectomy/Fusion 3 Le Unknown 08/18/24 Unknown Unknown FDA Start: 08-18-2024 Posterior Cervic al Instrumentation with Unknown 01/05/25 Unknown Unknown FDA Start: 01-05-2025 Posterior Cervic al Instrumentation with Unknown 01/05/25 Unknown Unknown FDA Start: 01-05-2025 Posterior Cervic al Instrumentation with Unknown 01/05/25 Unknown Unknown FDA Start: 01-05-2025 Posterior Cervic al Instrumentation with Unknown 01/05/25 Unknown Unknown FDA Start: 01-05-2025 Posterior Cervic al Instrumentation with Unknown 01/05/25 Unknown Unknown FDA Start: 01-05-2025 Posterior Cervic al Instrumentation with Unknown 01/05/25 Unknown Unknown FDA Start: 01-05-2025 Posterior Cervic al Instrumentation with Unknown 01/05/25 Unknown Unknown FDA Start: 01-05-2025 Posterior Cervic al Instrumentation with Unknown 01/05/25 Unknown Unknown FDA Start: 01-05-2025 Posterior Cervic al Instrumentation with Unknown 01/05/25 Unknown Unknown FDA Start: 01-05-2025 Posterior Cervic al Instrumentation with Unknown 01/05/25 Unknown Unknown FDA Start: 01-05-2025 Goals Date Patient Goal Desired Activity /State Functional Status Date Assessment Result Facility 01-20-2025 Functional Status Independent [facility] 01-20-2025 Functional Status Supervised [facility] 01-19-2025 Functional Status [facility] 01-06-2025 Functional Status Remains up in chair [facility] 01-06-2025 Functional Status Min A [facility] 01-06-2025 Functional Status [facility] 01-06-2025 Functional Status [facility] 01-06-2025 Functional Status [facility] 01-06-2025 Functional Status 11pm-7am [facility] 01-05-2025 Functional Status [facility] 01-05-2025 [facility] Functional Status Patient Identi fied Identification band [facility] 01-05-2025 [facility] Functional Status Sensory Defici ts Hearing deficit, left ear, Hearing deficit, right ear [facility] 08-22-2024 Functional Status Room check performed [facility] 08-22-2024 Functional Status Two assist [facility] 08-22-2024 Functional [facility] Functional Status Repositioned right side [facility] 08-22-2024 [facility] 08-21-[facility]24 Functional Status Refused [facility] 08-21-[facility]24 Functional Status Assistive Equi pment elevated on pillows [facility] 08-21-2024 Functional Status [facility] 08-21-2024 Functional Status [facility] 08-21-2024 Functional Status Breakfast Percent 0 [facility] 08-20-2024 Functional Status [facility] 08-20-2024 Functional Status Activity Assistance Two assist [facility] 08-20-2024 Functional Status [facility] 08-20-2024 Functional Status [facility] 08-19-2024 Functional Status Personal ADL [facility] 08-19-2024 Functional Status [facility] 08-19-2024 Functional Status [facility] 08-18-2024 Functional Status [facility] 08-18-2024 Functional Status Patient Identi fied Identification band, Verbal [facility] 08-18-2024 Functional Status Maintained [facility] 08-04-2024 Functional Status Sensory Defici ts Hearing deficit, left ear, Hearing deficit, right ear [facility] 10-17-2023 Functional status Patient Activity Chair [facility] Work Phone: 10-17-2023 Functional status Standby Assist [facility] Work Phone: 10-17-2023 Functional status Ambulates [facility] Work Phone: Mental Status Date Assessment Result Facility 01-20-2025 Mental Status Orientation Oriented x 4 [facility] 01-20-2025 Mental Status [facility] 01-19-2025 Mental Status [facility] 01-19-2025 Cognitive function Level Of Cons ciousness Awake;Alert;Appropriate;Follo ws Commands [facility] Work Phone: 01-06-2025 Mental Status Oriented x 4 [facility] 01-06-2025 Mental Status [facility] 01-05-2025 Mental Status [facility] 08-22-2024 Mental Status Oriented x 4 [facility] 08-21-2024 Mental Status [facility] 08-20-2024 Mental Status [facility] 10-17-2023 Cognitive function Voice/Name [facility] Work Phone: 10-17-2023 Cognitive function Voice/Name [facility] Work Phone: 10-12-2023 Cognitive function Level Of Cons ciousness Awake;Alert;Appropriate [facility] Work Phone: Clinical Notes 07-31-2023 to 01-20-2025 Note Date & Type Note Facility 01-20-2025 Hospital Discharg e instructions Patient Education 01/20/2025 13:16:47 Weakness (Uncertain Cause) Weakness with Uncertain Cause Based on your exam today, the exact cause of your weakness is not certain. But your weakness does not seem to be a sign of a serious illness at this time. Keep an eye on your symptoms and get medical advice as instructed below. Home care Rest at home today. Don't over-exert yourself. Take any medicine as prescribed. For the next few days, drink extra fluids (unless your healthcare provider wants you to restrict fluids for other reasons). Don't skip meals. Unless otherwise directed, continue to take any prescription medicines. Contact your healthcare provider if you have any questions or concerns. Follow-up care Follow up with your healthcare provider, or as advised. When to seek medical advice Call your healthcare provider right away for any of the following: Symptoms get worse Symptoms don't start getting better within 2 days Fever of 100.4 F (38 C) or higher, or as directed by your healthcare provider Call 911 Call 911 for any of these: Chest, arm, neck, jaw, or upper back pain Trouble breathing Numbness or weakness of the face, one arm, or one leg Slurred speech, confusion, or trouble speaking, walking, or seeing Blood in vomit or stool (black or red color) Loss of consciousness Severe headache 5618-1820 [employer] [address] [place] [address]. All rights reserved. This information is not intended as a substitute for professional medical care. Always follow your healthcare professional's instructions. Follow Up Care 01/19/2025 16:21:13 With:SCOTT MEJIA MD Address: [address] [place] [address] [place] [phone] When:2-4 days [facility] 01-20-2025 Emergency department Discharge summary Discharge Instructions Thank you for allowing [facility] to assist you with your healthcare needs. The following is important discharge information regarding your hospital visit. Diagnosis from Today's Visit Post-operative pain Weakness Weakness What to Do Next Instructions from Your Care Team Discharge to Outpatient OT - Ordered -- Therapy Order: Outpatient OT Eval and Treat, s/p c-spine surgery, Reason: Weakness, 01/20/25 13:16:00 EDT Discharge to Outpatient PT - Ordered -- Therapy Order: Outpatient PT Eval and Treat, s/p c-spine surgery, Reason: Weakness, 01/20/25 13:16:00 EDT Post Acute Orders No qualifying data available. You Need to Schedule the Following Appointments Follow Up with SCOTT MEJIA MD When:Within 2-4 days [address] [place] [address] [phone] Allergies NKA Medications Please ask your primary doctor or pharmacist before taking any other medication not listed, including over the counter drugs, herbal medications, vitamins and or supplements as they may interact with your home medications. What How Much When Instructions Last Dose Unchanged apixaban (Eliquis 5 mg oral tablet) Take 1 tab twice a day Unchanged aspirin (aspirin 81 mg oral delayed release tablet) 1 tab(s) by mouth Once a day Unchanged atorvastatin (atorvastatin 80 mg oral tablet) 1 tab(s) by mouth Once a day (in the morning) Unchanged busPIRone (busPIRone 7.5 mg oral tablet) 1 tab(s) by mouth Two (2) times a day Unchanged carvedilol (carvedilol 6.25 mg oral tablet) 1 tab(s) by mouth Twice daily with meals Unchanged clopidogrel (clopidogrel 75 mg oral tablet) 1 tab(s) by mouth Once a day (in the morning) Last Dose Unchanged fluticasone/ umeclidinium/ vilanterol (Trelegy Ellipta 200 mcg-62.5 mcg-25 mcg/ inh inhalation powder) 1 inh by inhalation Daily at 12 noon Unchanged gabapentin (gabapentin 300 mg oral capsule) 1 cap by mouth Daily at bedtime Unchanged lisinopril (lisinopril 5 mg oral tablet) 1 tab(s) by mouth Once a day Unchanged mirtazapine (mirtazapine 30 mg oral tablet) 1 tab(s) by mouth Daily at bedtime Unchanged Misc Medication (Oxygen) 2 liters in the nose Daily at bedtime Unchanged mupirocin topical (mupirocin 2% topical ointment) 1 application Topical Two (2) times a day Bilateral intranasal application twice daily for 5 days prior to surgery &/ or as many days leading up to surgery as possible due to surgical urgency/ scheduling. Send to patient's preferred pharmacy. Unchanged oxyCODONE (oxyCODONE 5 mg oral tablet ( IMMEDIATE release )) 1 tab(s) by mouth Every 6 hours as needed for for pain Unchanged pantoprazole (Protonix 40 mg oral enteric coated tablet) 1 tab(s) by mouth Once a day before a meal Unchanged QUEtiapine (QUEtiapine 25 mg oral tablet) 1 tab(s) by mouth Daily at bedtime Unchanged tiZANidine (tiZANidine 2 mg oral tablet) 1 tab(s) by mouth Every 8 hours as needed for as needed for muscle spasm Duration: 14 Days Please take this list to your next doctor s visit. Bring all medications you take, including over the counter medications, herbals and other supplements with you to your doctor s visit. Patients and families are reminded to discard old lists and to update any records with all medication providers or retail pharmacies. Education Materials Weakness with Uncertain Cause Based on your exam today, the exact cause of your weakness is not certain. But your weakness does not seem to be a sign of a serious illness at this time. Keep an eye on your symptoms and get medical advice as instructed below. Home care Rest at home today. Don't over-exert yourself. Take any medicine as prescribed. For the next few days, drink extra fluids (unless your healthcare provider wants you to restrict fluids for other reasons). Don't skip meals. Unless otherwise directed, continue to take any prescription medicines. Contact your healthcare provider if you have any questions or concerns. Follow-up care Follow up with your healthcare provider, or as advised. When to seek medical advice Call your healthcare provider right away for any of the following: Symptoms get worse Symptoms don't start getting better within 2 days Fever of 100.4 F (38 C) or higher, or as directed by your healthcare provider Call 911 Call 911 for any of these: Chest, arm, neck, jaw, or upper back pain Trouble breathing Numbness or weakness of the face, one arm, or one leg Slurred speech, confusion, or trouble speaking, walking, or seeing Blood in vomit or stool (black or red color) Loss of consciousness Severe headache [id number] [employer] [address] [place] [address], [place] [address]. All rights reserved. This information is not intended as a substitute for professional medical care. Always follow your healthcare professional's instructions. Additional Information VACCINATE! IT SAVES LIVES! Members of the community who have not yet received the COVID-19 vaccine and would like to receive it can visit one of [facility] vaccine clinics. There are many vaccine clinic locations within the [facility]. For locations and available times, please visit [email or web address] [email or web address] It is important to note that some COVID mobile vaccine clinics are held outdoors and may be canceled in rainy or stormy conditions. To learn more about pediatric vaccinations (ages 5-11), we invite you to visit the [facility] webpage. [email or web address] [email or web address] [email or web address] To learn more about the COVID-19 vaccine, we invite you to visit the CDC website for a list of frequently asked questions. https://www.cdc.gov/coronavirus/ 2019-ncov/vaccines/faq.html [facility] Patient Portal Access Instructions: Stay connected with your healthcare team and access your personal medical information anytime with the [facility] Patient Portal. If you would like a full copy of your medical records please contact the [facility] Medical Records Department Sunday through Sunday between 8a.m. and 4:30p.m. Please follow the directions below to access the portal: 1.Access the email account you provided upon registration to the hospital.2.Look for an invitation email from [facility].3.Open the email and access the invitation link: Accept Invitation to [facility].Fill in the required pemberton to create your account. Sign into [email or web address] with your username and password that you created in the above steps to stay up to date. You can then view a summary of results, a summary of your visits, and the ability to download your summaries to your computer or send the information securely to a physician. Remember that your healthcare information is confidential, so carefully consider who you will allow to register on the [facility] Patient Portal for access to your information. You can also access the [facility] Patient Portal on the cottonTracks. Simply click on Health Records under Health Data and then click on the [employer] logo. HOW TO SAFELY DISPOSE OF PRESCRIPTION MEDICATIONS Please use one of the following methods to safely dispose of your unused medications. 1.Use a drug disposal kit: the drug disposal pouch allows you to safely discard your old and unused drugs. Ask your nurse to give you one when you are discharged.2.Visit a local take-back location: Many local pharmacies and police departments have programs that collect old and unwanted prescription drugs. Call your local pharmacy or go to http://Innovaspire.Audioms/0Q0Rp8l to find one close to you.3.Make use of household items: Use cat litter or old coffee grounds to dispose medications if other options are not available. Mix your drugs with these household products, seal them in an airtight container and throw it into the garbage. Call [facility]: [phone] to be sure your drugs can be disposed of in this way. Some medicines may require a different approach.4.Never flush your medications down the toilet. IF YOU HAVE BEEN PRESCRIBED AN OPIOIDS FOR PAIN If you have been prescribed an opioid (such as hydrocodone, oxycodone or morphine), it is critical to understand the possible side effects and risks of opioid pain medications. Even when taken as directed, opioids can have several side effects including: Tolerance, meaning you might need to take more of a medication for the same pain relief. Nausea, vomiting and/or constipation. Sleepiness, dizziness, dry mouth, confusion, depression or itching. Physical dependence, meaning you have withdrawal symptoms when a medication is stopped ? this can develop within a few days. KNOW YOUR RESPONSIBILITIES It is important to know exactly how much and how often to take the opioid pain medications you are prescribed. Never take opioids in higher amounts or more often than prescribed. Do not combine opioids with alcohol or other drugs that cause drowsiness, such as benzodiazepines, also known as benzos, including diazepam and alprazolam, muscle relaxants or sleep aids. Never sell or share prescription opioids. This is illegal. Store opioids in a secure place and out of reach of others (including children, family, friends and visitors). The last page(s) of this document has been signed and retained as a CHART COPY Signatures Patient Education Materials Weakness (Uncertain Cause) Medication Leaflets My discharge plan and instructions have been reviewed and explained to me and I,SARTHAK PUTNAM JR understand my current condition and have read and understand these discharge instructions. I have received a written copy of the plan/instructions. If I have questions, I am aware that I should contact my doctor. Patient/Service Counselor Signature: Date/Time: Relationship to Patient: Witness Name/Signature: Date/Time: [facility] 01-20-2025 Orthopaedic surgery Consult note Date of Service 01/19/25 Reason for Consultation Difficulty ambulating History of Present Illness Patient is a 69-year-old male who is 2 weeks status post C3-C7 lateral cervical fusion with Dr. Fischer. He ultimately went home and not to rehab after his surgery. He presents to the emergency department today with his son with complaints of difficulty ambulating this morning. Reports that he was able to ambulate last night, today he is able to stand up but it feels like his legs are stuck . He denies any recent trauma. Denies any numbness or tingling distally in bilateral upper or lower extremities. After his surgery 2 weeks ago he did not wish to go to rehab and ultimately went home. He denies any drainage from his anterior or posterior cervical incisions. Review of Systems REVIEW OF SYSTEMS: No fever, no chills, no weight change. HEENT: No sore throat, earache, or congestion. No neck pain. Heart: No chest pain. No palpitations. Lungs: No shortness of breath or cough. GI: No nausea, no vomiting, no diarrhea, no constipation, no anorexia. : No dysuria, frequency or urgency. No hematuria. Musculoskeletal: see above Skin: No rash or itching. Psychiatric: No anxiety, no depression. Endocrine: No polyuria or polydipsia. Physical Exam Vitals and Measurements T: 36.7 C (Oral) HR: 85 RR: 16 BP: 145/75 SpO2: 92% No qualifying data available. General: NAD, A&Ox3 HEENT: normocephalic, atraumatic, EOMI intact CV: pulses regular throughout, brisk cap refill throughout, Pulm: normal work of breathing, equal chest rise bilaterally, no intercostal retractions or conversational dyspnea GI: abdomen is soft, nontender, nondistended, no rigidity or guarding Psych: calm and cooperative Cervical spine: Surgical incision is well-healing with no significant surrounding erythema, drainage or signs of infection Patient has 5/5 strength in shoulder abduction, elbow flexion extension, wrist flexion extension and puttier strength bilaterally Sensation intact to light touch C5-T1 bilaterally Patient has 5/5 strength in hip flexion, knee flexion/extension, ankle dorsiflexion and plantarflexion bilaterally Sensation intact to light touch L3-S1 bilaterally 2+ dorsalis pedis pulse bilaterally Lab Results No 36 Hour Lab Data Imaging Results and Diagnostics CT Head or Brain w/o Contrast Result Date: January 19, 2025 Verified By: ELIE FUENTES MD CLINICAL STATEMENT: IMPRESSION: No acute intracranial abnormality. Assessment/Plan Post-operative pain Patient is a 69-year-old male who presents with difficulty ambulating 2 weeks status post C3-C7 cervical fusion with Dr. Fischer On physical exam he has good sensation and motor strength bilaterally in his upper and lower extremities His incision is well-healing, he is afebrile and there is no concern for infection at this time Explained to patient this is likely some deconditioning after surgery. Spoke with the emergency department physician, recommend that he be started on IV Decadron and work with physical therapy. It is likely that he will ultimately need placement in rehab to facilitate his recovery. No acute surgical indication from an orthospine perspective. Case discussed with Dr. Fischer. 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 New onset atrial fibrillation Orthopedic aftercare Spinal stenosis at L4-L5 level Status post cervical arthrodesis Stented coronary artery Historical Chest pain Procedure/Surgical History Cardiac catheterization: 01/2024 Biopsy of lun12/2023 Cardiac catheterization: 2008 Microdiscectomy: 1996 Cervical spinal fusion Medications Inpatient Tylenol, 650 mg= 2 tab(s), Oral, q4h, PRN Home atorvastatin 80 mg oral tablet, 80 mg= 1 tab(s), Oral, qAM busPIRone 7.5 mg oral tablet, 7.5 mg= 1 tab(s), Oral, BID clopidogrel 75 mg oral tablet, 75 mg= 1 tab(s), Oral, qAM, On hold for Surgery Eliquis 5 mg oral tablet mirtazapine 30 mg oral tablet, 30 mg= 1 tab(s), Oral, qHS mupirocin 2% topical ointment, 1 lino, Topical, BID Oxygen, 2 liters, Nasal, qHS Protonix 40 mg oral enteric coated tablet, 40 mg= 1 tab(s), Oral, qDayAC, 6 refills tiZANidine 2 mg oral tablet, 2 mg= 1 tab(s), Oral, q8h, PRN Trelegy Ellipta 200 mcg-62.5 mcg-25 mcg/inh inhalation powder, 1 inh, Inhalation, 12 (noon) Allergies NKA Social History Smoking Status - 04/24/2015 Current every day smoker Alcohol - Denies Alcohol Use, 09/06/2018 Use: Never., 11/29/2023 Home/Environment Living situation: Home/Independent. Safe place to go: Yes. Domestic Concerns: None. Lives In: Single level home. Current Home Treatments Oxygen therapy, walker. Professional Skilled Services or Special Community Resources None. Marital Status: ., 12/22/2024 Sexual - No Risk, 09/06/2018 Substance Abuse - Denies Substance Abuse, 09/06/2018 Use: Never., 11/29/2023 Tobacco - High Risk, 09/06/2018 Nicotine Use: Former smoker, quit more than 30 days ago. Type: Cigarettes. Started at age: 8 Years. Stopped at age: 68 Years., 10/21/2024 Family History Cancer: Mother and Father. Diabetes mellitus: Mother. HTN - Hypertension: Mother. Heart attack: Sister. Heart disease: Mother, Father and Brother. Health Status Family Member(s) Immunizations pneumococcal 23-valent vaccine(Pneumovax: 0.5 unknown unit (03/09/20) pneumococcal 23-valent vaccine(Pneumovax: 0.5 mL (04/07/10) tetanus/diphth/pertuss (Tdap) adult/adol: 0 unknown unit (04/20/16) Digitally Signed by SILVIA THORNTON DO on 01/19/2025 08:40 PM [facility] 01-19-2025 Orthopaedic surgery Consult note Date of Service 01/19/25 Reason for Consultation Difficulty ambulating History of Present Illness Patient is a 69-year-old male who is 2 weeks status post C3-C7 lateral cervical fusion with Dr. Fischer. He ultimately went home and not to rehab after his surgery. He presents to the emergency department today with his son with complaints of difficulty ambulating this morning. Reports that he was able to ambulate last night, today he is able to stand up but it feels like his legs are stuck . He denies any recent trauma. Denies any numbness or tingling distally in bilateral upper or lower extremities. After his surgery 2 weeks ago he did not wish to go to rehab and ultimately went home. He denies any drainage from his anterior or posterior cervical incisions. Review of Systems REVIEW OF SYSTEMS: No fever, no chills, no weight change. HEENT: No sore throat, earache, or congestion. No neck pain. Heart: No chest pain. No palpitations. Lungs: No shortness of breath or cough. GI: No nausea, no vomiting, no diarrhea, no constipation, no anorexia. : No dysuria, frequency or urgency. No hematuria. Musculoskeletal: see above Skin: No rash or itching. Psychiatric: No anxiety, no depression. Endocrine: No polyuria or polydipsia. Physical Exam Vitals and Measurements T: 36.7 C (Oral) HR: 85 RR: 16 BP: 145/75 SpO2: 92% No qualifying data available. General: NAD, A&Ox3 HEENT: normocephalic, atraumatic, EOMI intact CV: pulses regular throughout, brisk cap refill throughout, Pulm: normal work of breathing, equal chest rise bilaterally, no intercostal retractions or conversational dyspnea GI: abdomen is soft, nontender, nondistended, no rigidity or guarding Psych: calm and cooperative Cervical spine: Surgical incision is well-healing with no significant surrounding erythema, drainage or signs of infection Patient has 5/5 strength in shoulder abduction, elbow flexion extension, wrist flexion extension and puttier strength bilaterally Sensation intact to light touch C5-T1 bilaterally Patient has 5/5 strength in hip flexion, knee flexion/extension, ankle dorsiflexion and plantarflexion bilaterally Sensation intact to light touch L3-S1 bilaterally 2+ dorsalis pedis pulse bilaterally Lab Results No 36 Hour Lab Data Imaging Results and Diagnostics CT Head or Brain w/o Contrast Result Date: January 19, 2025 Verified By: ELIE FUENTES MD CLINICAL STATEMENT: IMPRESSION: No acute intracranial abnormality. Assessment/Plan Post-operative pain Patient is a 69-year-old male who presents with difficulty ambulating 2 weeks status post C3-C7 cervical fusion with Dr. Fischer On physical exam he has good sensation and motor strength bilaterally in his upper and lower extremities His incision is well-healing, he is afebrile and there is no concern for infection at this time Explained to patient this is likely some deconditioning after surgery. Spoke with the emergency department physician, recommend that he be started on IV Decadron and work with physical therapy. It is likely that he will ultimately need placement in rehab to facilitate his recovery. No acute surgical indication from an orthospine perspective. Case discussed with Dr. Fischer. 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 New onset atrial fibrillation Orthopedic aftercare Spinal stenosis at L4-L5 level Status post cervical arthrodesis Stented coronary artery Historical Chest pain Procedure/Surgical History Cardiac catheterization: 01/2024 Biopsy of lun12/2023 Cardiac catheterization: 2008 Microdiscectomy: 1996 Cervical spinal fusion Medications Inpatient Tylenol, 650 mg= 2 tab(s), Oral, q4h, PRN Home atorvastatin 80 mg oral tablet, 80 mg= 1 tab(s), Oral, qAM busPIRone 7.5 mg oral tablet, 7.5 mg= 1 tab(s), Oral, BID clopidogrel 75 mg oral tablet, 75 mg= 1 tab(s), Oral, qAM, On hold for Surgery Eliquis 5 mg oral tablet mirtazapine 30 mg oral tablet, 30 mg= 1 tab(s), Oral, qHS mupirocin 2% topical ointment, 1 lino, Topical, BID Oxygen, 2 liters, Nasal, qHS Protonix 40 mg oral enteric coated tablet, 40 mg= 1 tab(s), Oral, qDayAC, 6 refills tiZANidine 2 mg oral tablet, 2 mg= 1 tab(s), Oral, q8h, PRN Trelegy Ellipta 200 mcg-62.5 mcg-25 mcg/inh inhalation powder, 1 inh, Inhalation, 12 (noon) Allergies NKA Social History Smoking Status - 04/24/2015 Current every day smoker Alcohol - Denies Alcohol Use, 09/06/2018 Use: Never., 11/29/2023 Home/Environment Living situation: Home/Independent. Safe place to go: Yes. Domestic Concerns: None. Lives In: Single level home. Current Home Treatments Oxygen therapy, walker. Professional Skilled Services or Special Community Resources None. Marital Status: ., 12/22/2024 Sexual - No Risk, 09/06/2018 Substance Abuse - Denies Substance Abuse, 09/06/2018 Use: Never., 11/29/2023 Tobacco - High Risk, 09/06/2018 Nicotine Use: Former smoker, quit more than 30 days ago. Type: Cigarettes. Started at age: 8 Years. Stopped at age: 68 Years., 10/21/2024 Family History Cancer: Mother and Father. Diabetes mellitus: Mother. HTN - Hypertension: Mother. Heart attack: Sister. Heart disease: Mother, Father and Brother. Health Status Family Member(s) Immunizations pneumococcal 23-valent vaccine(Pneumovax: 0.5 unknown unit (03/09/20) pneumococcal 23-valent vaccine(Pneumovax: 0.5 mL (04/07/10) tetanus/diphth/pertuss (Tdap) adult/adol: 0 unknown unit (04/20/16) Digitally Signed by SILVIA THORNTON DO on 01/19/2025 08:40 PM [facility] 01-19-2025 Note Exam Date Time Procedure Performing Provider Status 01/19/25 6:[address] Head or Brain w/o Contrast NOLA FUENTES MD; Auth (Verified) [id number] ORIGINAL EXAMINATION: CT OF THE HEAD WITHOUT CONTRAST 01/19/2025 6:42 pm TECHNIQUE: CT of the head was performed without the administration of intravenous contrast. Automated exposure control, iterative reconstruction, and/or weight based adjustment of the mA/kV was utilized to reduce the radiation dose to as low as reasonably achievable. COMPARISON: None. HISTORY: ORDERING SYSTEM PROVIDED HISTORY: Reason for Exam: FELL DENIES HITTING HEAD. HX OF STROKE. ON THINNERS pain FINDINGS: BRAIN/VENTRICLES: There is no acute intracranial hemorrhage, mass effect or midline shift. No abnormal extra-axial fluid collection. The ayers-white differentiation is maintained without evidence of an acute infarct. There is no evidence of hydrocephalus. ORBITS: The visualized portion of the orbits demonstrate no acute abnormality. SINUSES: Underpneumatized right mastoid air cells. The visualized paranasal sinuses and mastoid air cells demonstrate no acute abnormality. SOFT TISSUES/SKULL: No acute abnormality of the visualized skull or soft tissues. IMPRESSION: No acute intracranial abnormality. Interpreted by: Elie Fuentes Preliminary Report By: Elie Fuentes Electronically signed By Elie Fuentes Dictated Date: 01/19/2025 7:06:12 PM Prelim Date: 01/19/2025 7:08:23 PM Sign Date: 01/19/2025 7:08:23 PM Ordering Provider: OFELIA MYRICK [id number] Cardiology Consult note Date of Service 01/06/2025 08:24:21 Reason for Consultation Recently diagnosed atrial fibrillation, antiplatelet/anticoagulation recommendations Referring Physician Dr. Parker History of Present Illness 69-year-old male with history of CAD status post PCI (bare-metal stent to RCA in 2009, also PCI in January 2024), recently diagnosed atrial fibrillation December 2024 hypertension, hyperlipidemia, COPD on 2L oxygen, cervical spinal stenosis/spondylosis with myelopathy, anxiety depression Patient admitted to the hospital for second staged cervical surgery of C3 C7, laminectomy with posterior fusion. Cardiology consulted recently diagnosed atrial fibrillation and antiplatelet/anticoagulation recommendations. Per documentation, patient was with cardiology in [place]. He was diagnosed early December with new onset atrial fibrillation, plan was to start Eliquis after surgery whenever orthopedic surgery cleared the patient. Currently patient is hemodynamically stable on 3 L nasal cannula. Labs show mild leukocytosis, stable electrolytes, normal renal function, elevated LFTs. No EKG done this admission Review of Systems Per HPI, Complete ROS otherwise negative Physical Exam Vitals and Measurements T: 37.0 C (Oral) TMIN: 35.42 C TMAX: 37.0 C (Oral) HR: 82 RR: 16 BP: 132/82 SpO2: 97% HT: 175.3 cm WT: 73 kg BMI: 23.76 Weight Dosing Weight: 73 kg (01/05/25) Dosing Weight: 73 kg (01/05/25) General: AAOX3, NAD HEENT: Anicteric sclera, MMM Neck: Trachea midline, no JVD appreciated CVS: RRR, normal S1/S2, no murmurs/rubs/gallops Lung: CTAB, no wheezes/rhonchi/rales Abd: Soft, NT/ND Extrem: WWP, no LE edema Skin: Warm, Intact Neuro: AAOX3, spontaneous movement of all extremities Psych: Appropriate mood & affect Lab Results 01/06 04:11 WBC: 11.5 H Hgb: 12.1 L Hct: 36.5 L Platelet: 266 Neutrophil %: 82.5 H Glucose Level: 132 H Sodium Level: 141 Potassium Level: 4.3 BUN: 16.0 Creatinine Lvl (s): 0.90 01/05 17:33 WBC: 10.4 Hgb: 13.4 Hct: 40.2 Platelet: 282 Glucose Level: 151 H Sodium Level: 141 Potassium Level: 4.4 BUN: 17.0 Creatinine Lvl (s): 1.04 01/05 07:53 Platelet: 293 Protime: 11.0 PT International Ratio: 1.0 Assessment/Plan Recently diagnosed atrial fibrillation Admitted for cervical surgery History of CAD status post PCI History of: 69-year-old male with history of CAD status post PCI (bare-metal stent to RCA in 2009, also PCI in January 2024), recently diagnosed atrial fibrillation December 2024 hypertension, hyperlipidemia, COPD on 2L oxygen, cervical spinal stenosis/spondylosis with myelopathy, anxiety depression Patient admitted to the hospital for second staged cervical surgery of C3 C7, laminectomy with posterior fusion. Cardiology consulted recently diagnosed atrial fibrillation and antiplatelet/anticoagulation recommendations. Per documentation, patient was with cardiology in [place]. He was diagnosed early December with new onset atrial fibrillation, plan was to start Eliquis after surgery whenever orthopedic surgery cleared the patient. Currently patient is hemodynamically stable on 3 L nasal cannula. Labs show mild leukocytosis, stable electrolytes, normal renal function, elevated LFTs. No EKG done this admission Plan Ordered EKG shows sinus rhythm Due to PCI less than 12 months ago, recommend continuation of Plavix and Eliquis when cleared by surgery. Patient was discharged prior to attending evaluation. Cardiology service will sign off, please do not hesitate to reach out for any questions. Thank you for the consult. 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 New onset atrial fibrillation Orthopedic aftercare Spinal stenosis at L4-L5 level Status post cervical arthrodesis Stented coronary artery Historical Chest pain Procedure/Surgical History Cardiac catheterization: 01/2024 Biopsy of lun12/2023 Cardiac catheterization: 2008 Microdiscectomy: 1996 Cervical spinal fusion Medications Inpatient atorvastatin, 80 mg= 1 tab(s), Oral, qAM busPIRone, 7.5 mg= 1 tab(s), Oral, BID Dextrose 50% IV Push, 25 gram(s)= 50 mL, IV Push, AsDirected, PRN Dilaudid, 0.5 mg= 0.5 mL, IV Push, q3h, PRN DuoNeb, 3 mL, Inhalation, q4hRT, PRN LR 1,000 mL, 1000 mL, Intravenous Miralax Powder Packet, 17 gram(s)= 15 mL, Oral, qDay, PRN mirtazapine, 30 mg= 2 tab(s), Oral, qHS Pepcid, 20 mg= 1 tab(s), Oral, qDay Percocet 325/5, 2 tab(s), Oral, q4h, PRN Protonix, 40 mg= 1 tab(s), Oral, qDayAC tiZANidine, 2 mg= 1 tab(s), Oral, q8h, PRN Tylenol, 650 mg= 2 tab(s), Oral, q6h, PRN Tylenol, 650 mg= 2 tab(s), Oral, q4h, PRN Zofran, 4 mg= 2 mL, IV Push, q4h, PRN Home atorvastatin 80 mg oral tablet, 80 mg= 1 tab(s), Oral, qAM busPIRone 7.5 mg oral tablet, 7.5 mg= 1 tab(s), Oral, BID clopidogrel 75 mg oral tablet, 75 mg= 1 tab(s), Oral, qAM, On hold for Surgery Eliquis 5 mg oral tablet mirtazapine 30 mg oral tablet, 30 mg= 1 tab(s), Oral, qHS mupirocin 2% topical ointment, 1 lino, Topical, BID Oxygen, 2 liters, Nasal, qHS Percocet 5 mg-325 mg oral tablet, 1 tab(s), Oral, q6h, PRN Protonix 40 mg oral enteric coated tablet, 40 mg= 1 tab(s), Oral, qDayAC, 6 refills tiZANidine 2 mg oral tablet, 2 mg= 1 tab(s), Oral, q8h, PRN Trelegy Ellipta 200 mcg-62.5 mcg-25 mcg/inh inhalation powder, 1 inh, Inhalation, 12 (noon) Allergies NKA Social History Smoking Status - 04/24/2015 Current every day smoker Alcohol - Denies Alcohol Use, 09/06/2018 Use: Never., 11/29/2023 Home/Environment Living situation: Home/Independent. Safe place to go: Yes. Domestic Concerns: None. Lives In: Single level home. Current Home Treatments Oxygen therapy, walker. Professional Skilled Services or Special Community Resources None. Marital Status: ., 12/22/2024 Sexual - No Risk, 09/06/2018 Substance Abuse - Denies Substance Abuse, 09/06/2018 Use: Never., 11/29/2023 Tobacco - High Risk, 09/06/2018 Nicotine Use: Former smoker, quit more than 30 days ago. Type: Cigarettes. Started at age: 8 Years.Stopped at age: 68 Years., 10/21/2024 Family History Cancer: Mother and Father. Diabetes mellitus: Mother. HTN - Hypertension: Mother. Heart attack: Sister. Heart disease: Mother, Father and Brother. Health Status Family Member(s) Immunizations pneumococcal 23-valent vaccine(Pneumovax: 0.5 unknown unit (03/09/20) pneumococcal 23-valent vaccine(Pneumovax: 0.5 mL (04/07/10) tetanus/diphth/pertuss (Tdap) adult/adol: 0 unknown unit (04/20/16) Digitally Signed by NATAN NICKERSON DO on 01/06/2025 02:42 PM [id number] Discharge instructions Patient Education 01/06/2025 09:25:11 Pain Relief Before and After Surgery Pain Relief Before and After Surgery Pain relief is an important part of your overall care before, during, and after surgery. You and your health care provider will work together to make a plan to manage pain that you have before surgery (preoperative) and after surgery (postoperative). Addressing pain before surgery lessens the pain that you will have after surgery. Make sure that you fully understand and agree with your pain relief plan. If you have questions or concerns, it is important to discuss them with your health care provider. If you have pain that is not controlled by medicine, tell your health care provider. Severe pain after surgery may: Prevent sleep. Decrease your ability to breathe deeply and to cough. This can result in pneumonia or upper airway infections. Cause your heart to beat more quickly. Cause your blood pressure to be higher. Increase your risk for stomach and digestive problems. Slow down wound healing. Lead to depression, anxiety, and feelings of helplessness. Your health care provider may use more than one method at a time to help relieve your pain. Using this approach may allow you to eat, move around, and possibly leave the hospital sooner. What are options for managing pain before and after surgery? Oral pain medicines Pain medicines taken by mouth (orally) include: Non-narcotic medicines: ?Acetaminophen. ?NSAIDs, such as ibuprofen and naproxen. Muscle relaxants. These may relieve pain caused by muscle spasms. Anticonvulsants. These medicines are usually used to treat seizures. They may help to lessen nerve pain. Opioids. These medicines relieve pain by binding to pain receptors in the brain and spinal cord (narcotic pain medicines). Opioids may help relieve short-term (acute) postoperative pain that is moderate to moderately severe. ?Opioids are often combined with non-narcotic medicines to improve pain relief, lower the risk of side effects, and lower the chance of addiction. ?To help prevent addiction, opioids are given for short periods of time in careful doses. If you follow instructions from your health care provider and you do not have a history of substance abuse, your risk of becoming addicted to opioids is low. Some of these medicines may be available in injectable form. They may be given through an IV if youare unable to eat or drink. As-needed pain control You can receive pain medicine when you need it, through an IV or as a pill or liquid. When you tellyour health care provider that you are having pain, he or she will give you the proper pain medicine. Medicine that numbs an area You may be given pain medicine that numbs an area (local anesthetic): As an injection near your painful area (local infiltration). As an injection near the nerve that provides feeling to a specific part of your body (peripheral nerve block). As an injection in your spine (spinal block). Through a local anesthetic reservoir pump. For this method, one or more catheters are inserted intoyour incision at the end of your procedure. These catheters are connected to a device that is filled with a non-narcotic pain medicine. Medicine gradually empties into your incision area over the next several days. Continuous epidural pain control With this method, you receive pain medicine through a small, thin tube (catheter) that is inserted into your back, near your spinal cord. Medicine flows through the catheter to lessen pain in areas of your body that are below the catheter. The catheter is usually put into the back shortly before surgery. It may be left in until you can eat, take medicine by mouth, pass urine, and have a bowel movement. This method may be recommended if you are having surgery on your abdomen, hip area, or legs. This method of pain relief may help you heal faster because you may be able to do these things sooner: Regain normal bowel and bladder function. Return to eating. Get up and walk. IV patient-controlled analgesia (LEASE ADMINISTRATION ANALYST) pump With this method, you receive pain medicine through an IV that is connected to a LEASE ADMINISTRATION ANALYST pump. The LEASE ADMINISTRATION ANALYST pump gives you a specific amount of medicine when you push a button. This lets you control how much medicine you receive. You are the only person who should push this button. The pump is set up so that you cannot accidentally give yourself too much medicine. You will be able to start using your LEASE ADMINISTRATION ANALYST pump in the recovery room after your procedure. Tell your health care provider: If you are having too much pain. If you cannot push the button. If you are feeling too sleepy or nauseous. Other pain control methods Other methods of pain relief after surgery include: Heat and cold therapy. Massage. Topical analgesics. These are patches, creams, and gels that can be applied on the skin. Steroid medicines. These medicines may be given to lessen swelling. Physical therapy. A physical therapist will work with you to meet goals, such as feeling and functioning better. Physical therapy usually includes specific exercises that are tailored to your needs. Transcutaneous electrical nerve stimulation (TENS). This method sends electrical signals through the skin to interrupt pain signals. Cognitive behavioral therapy (CBT). This therapy helps you learn coping skills for dealing with pain. What are some questions to ask my health care provider? What pain relief options would be best for me? What are the risks of each option? What are the benefits of each option? How long will I need pain relief after surgery? Summary A plan to manage pain that you may have before surgery (preoperative) and after surgery (postoperative) is an important part of your overall care. Pain management options include medicines and non-medical therapies, such as physical therapy, massage, and heat or cold therapy. Pain management medicines include opioids and non-narcotic medicines such as NSAIDs, steroids, or local anesthetics. Pain medicines can have side effects. Side effects of opioids include constipation, nausea, excessive sleepiness, and risk of addiction. Your health care provider will work with you to prevent or manage these side effects and risks. This information is not intended to replace advice given to you by your health care provider. Make sure you discuss any questions you have with your health care provider. Document Released: 12/01/2003 Document Revised: 09/13/2018 Document Reviewed: 12/21/2017 [employer] Patient Education Info. Follow Up Care 11/07/2024 10:03:53 With:MANDO FISCHER DO, [facility] Address: [address] [facility] [address] [facility] [place] [address] [phone] When:02/03/2025 09:00:00 Comments:Post-op follow-upNO ELIQU UNTIL SUNDAY MORNING [facility] 04-15-2025 Note Discharge Instructions Thank you for allowing [facility] to assist you with your healthcare needs. The following is importantdischarge information regarding your hospital visit. Your Care Team SCOTT MEJIA MD Your Diagnosis Myelopathy concurrent with and due to spinal stenosis of cervical region Post-op pain What to do next Scheduled Follow-Up Appointments Appointment Type When With Where Contact Information StatusOSM OV Post Op 02/03/2025 09:00 AM EDT [facility] [place] Confirmed Follow Up Appointments Follow Up with MANDO FISCHER DO, [facility] When:In 2 weeks Where:[address] [facility] [address] [facility] [place] [address] [phone] Additional Information: Post-op follow-up NO ELIQUIS UNTIL SUNDAY MORNING The Following Activity and Diet Have Been Ordered for You Discharge Activity - Ordered -- Lifting Restricted less than 10 pounds Driving Restricted May Shower, May shower in 4 days, No driving for 2 weeks, 01/06/25 9:20:00 EDT Discharge Return to Work, School, or Sports - Ordered -- within 2 weeks, May return to: work, 01/06/25 9:20:00 EDT Discharge Diet - Ordered -- Type of Diet: [id number], Thin (Thinned)-IDDSI-0, Follow the diet changes as instructed by the dietitian, 01/06/25 9:20:00 EDT The Following Equipment Has Been Ordered for You Discharge Home Equipment Discharge Wound Care - Ordered -- 01/06/25 9:20:00 EDT The Following Treatments Have Been Ordered for You Discharge Labs Discharge Outpatient Labwork - Ordered -- CMP, Transaminitis, follow-up within: 1 week, Results Notify to: SCOTT CONNOLLY, 259:20:00 EDT Discharge Radiology No qualifying data available. Other Therapies No qualifying data available. Post Acute Orders No qualifying data available. Someone Will Contact You Regarding These Home Health Referrals No home referrals have been ordered for you. No one will call you. Allergies NKA Medications Please ask your primary doctor or pharmacist before taking any other medication not listed, including over the counter drugs, herbal medications, vitamins and or supplements as they may interact withyour home medications. What How Much When Why Instructions Last Dose Changed apixaban (Eliquis 5 mg oral tablet) Take 1 tab twice a day DO NOT take until 2024 Unchanged acetaminophen-oxyCODONE (Percocet 5 mg-325 mg oral tablet) 1 tab(s) by mouth Every 6 hours as needed for Pain Post-op pain Duration: 7 Days Pickup at [facility]/pharmacy #[id number] Unchanged atorvastatin (atorvastatin 80 mg oral tablet) 1 tab(s) by mouth Once a day (in the morning) Unchanged busPIRone (busPIRone 7.5 mg oral tablet) 1 tab(s) by mouth Two (2) times a day Unchanged clopidogrel (clopidogrel 75 mg oral tablet) 1 tab(s) by mouth Once a day (in the morning) Last Dose Unchanged fluticasone/ umeclidinium/ vilanterol (Trelegy Ellipta 200 mcg-62.5 mcg-25 mcg/ inh inhalation powder) 1 inh by inhalation Daily at 12 noon Unchanged mirtazapine (mirtazapine 30 mg oral tablet) 1 tab(s) by mouth Daily at bedtime Unchanged Misc Medication (Oxygen) 2 liters in the nose Daily at bedtime Unchanged mupirocin topical (mupirocin 2% topical ointment) 1 application Topical Two (2) times a day Bilateral intranasal application twice daily for 5 days prior to surgery &/ or as many days leading up to surgery as possible due to surgical urgency/ scheduling. Send to patient's preferred pharmacy. Unchanged pantoprazole (Protonix 40 mg oral enteric coated tablet) 1 tab(s) by mouth Once a day before a meal Unchanged tiZANidine (tiZANidine 2 mg oral tablet) 1 tab(s) by mouth Every 8 hours as needed for as needed for muscle spasm Duration: 14 Days Pickup at [facility]/pharmacy #[id number] Pharmacy Information [facility]/pharmacy #[id number]: [address], [place] [id number] [phone] What How Much When Comments Stop Taking aspirin (aspirin 81 mg oral delayed release tablet) 1 tab(s) by mouth Once a day (in the morning) Last Dose Please take this list to your next doctor s visit. Bring all medications you take, including over the counter medications, herbals and other supplements with you to your doctor s visit. Patients and families are reminded to discard old lists and to update any records with all medication providers or retail pharmacies. Medication Leaflets acetaminophen and oxycodone (a SEET a MIN oh fen and OX i KOE done) Endocet 10/325, Endocet 2.5/325, Endocet 5/325, Endocet 7.5/325, Nalocet, Percocet, Prolate What is the most important information I should know about acetaminophen and oxycodone? MISUSE OF OPIOID MEDICINE CAN CAUSE ADDICTION, OVERDOSE, OR . Keep the medication in a place where others cannot get to it. Taking opioid medicine during may cause life-threatening withdrawal symptoms in the . Fatal side effects can occur if you use opioid medicine with alcohol, or with other drugs that cause drowsiness or slow your breathing. Stop taking this medicine and call your doctor right away if you have skin redness or a rash that spreads and causes blistering and peeling. What is acetaminophen and oxycodone? Acetaminophen and oxycodone is a combination medicine used to relieve moderate to severe pain. Acetaminophen and oxycodone contains an opioide medicine and may be habit-forming. Acetaminophen and oxycodone may also be used for purposes not listed in this medication guide. What should I discuss with my healthcare provider before taking acetaminophen and oxycodone? You should not use this medicine if you are allergic to acetaminophen or oxycodone, or if you have: severe asthma or breathing problems; or a blockage in your stomach or intestines. Tell your doctor if you have ever had: breathing problems, sleep apnea; liver disease; a drug or alcohol addiction; kidney disease; a head injury or seizures; urination problems; or problems with your thyroid, pancreas, or gallbladder. If you use opioid medicine while you are , your baby could become dependent on the drug. This can cause life-threatening withdrawal symptoms in the baby after it is born. Babies born dependent on opioids may need medical treatment for several weeks. Ask a doctor before using opioid medicine if you are . Tell your doctor if you notice severe drowsiness or slow breathing in the nursing baby. How should I take acetaminophen and oxycodone? Follow all directions on your prescription label. Never take this medicine in larger amounts, or for longer than prescribed. An overdose can damage your liver or cause . Tell your doctor if you feel an increased urge to use more of this medicine. Never share opioid medicine with another person, especially someone with a history of drug abuse oraddiction. MISUSE CAN CAUSE ADDICTION, OVERDOSE, OR . Keep the medicine in a place where others cannot get to it. Selling or giving away opioid medicine is against the law. Measure liquid medicine carefully. Use the dosing syringe provided, or use a medicine dose-measuring device (not a kitchen spoon). If you need surgery or medical tests, tell the doctor ahead of time that you are using this medicine. You should not stop using this medicine suddenly. Follow your doctor's instructions about tapering your dose. Store at room temperature away from moisture and heat. Keep track of your medicine. You should be aware if anyone is using it improperly or without a prescription. Do not keep leftover opioid medication. Just one dose can cause in someone using this medicine accidentally or improperly. Ask your pharmacist where to locate a drug take-back disposal program.If there is no take-back program, flush the unused medicine down the toilet. What happens if I miss a dose? Since this medicine is used for pain, you are not likely to miss a dose. Skip any missed dose if itis almost time for your next dose. Do not use two doses at one time. What happens if I overdose? Seek emergency medical attention or call the Poison Help line at . An overdose of this medicine can be fatal, especially in a child or other person using the medicine without a prescription. Overdose symptoms may include nausea, vomiting, sweating, severe drowsiness, pinpoint pupils, slow breathing, or no breathing. Your doctor may recommend you get naloxone (a medicine to reverse an opioid overdose) and keep it with you at all times. A person caring for you can give the naloxone if you stop breathing or don't wake up. Your caregiver must still get emergency medical help and may need to perform CPR (cardiopulmonary resuscitation) on you while waiting for help to arrive. Anyone can buy naloxone from a pharmacy or local health department. Make sure any person caring foryou knows where you keep naloxone and how to use it. What should I avoid while taking acetaminophen and oxycodone? Avoid driving or operating machinery until you know how this medicine will affect you. Dizziness ordrowsiness can cause falls, accidents, or severe injuries. Do not drink alcohol. Dangerous side effects or could occur. Ask a doctor or pharmacist before using any other medicine that may contain acetaminophen (sometimes abbreviated as APAP). Taking certain medications together can lead to a fatal overdose. What are the possible side effects of acetaminophen and oxycodone? Get emergency medical help if you have signs of an allergic reaction: hives; difficulty breathing; swelling of your face, lips, tongue, or throat. Opioid medicine can slow or stop your breathing, and may occur. A person caring for you should give naloxone and/or seek emergency medical attention if you have slow breathing with long pauses,blue colored lips, or if you are hard to wake up. In rare cases, acetaminophen may cause a severe skin reaction that can be fatal. This could occur even if you have taken acetaminophen in the past and had no reaction. Stop taking this medicine and call your doctor right away if you have skin redness or a rash that spreads and causes blistering andpeeling. Call your doctor at once if you have: noisy breathing, sighing, shallow breathing, breathing that stops; a light-headed feeling, like you might pass out; weakness, tiredness, fever, unusual bruising or bleeding; confusion, unusual thoughts or behavior; problems with urination; liver problems--nausea, upper stomach pain, tiredness, loss of appetite, dark urine, mayuri-colored stools, jaundice (yellowing of the skin or eyes); low cortisol levels-- nausea, vomiting, loss of appetite, dizziness, worsening tiredness or weakness; or high levels of serotonin in the body--agitation, hallucinations, fever, sweating, shivering, fast heart rate, muscle stiffness, twitching, loss of coordination, nausea, vomiting, diarrhea. Serious breathing problems may be more likely in older adults and in those who are debilitated or have wasting syndrome or chronic breathing disorders. Common side effects include: dizziness, drowsiness, feeling tired; feelings of extreme happiness or sadness; nausea, vomiting, stomach pain; constipation; or headache. This is not a complete list of side effects and others may occur. Call your doctor for medical advice about side effects. You may report side effects to FDA at 8-771-EMJ-7781. What other drugs will affect acetaminophen and oxycodone? You may have breathing problems or withdrawal symptoms if you start or stop taking certain other medicines. Tell your doctor if you also use an antibiotic, antifungal medication, heart or blood pressure medication, seizure medication, or medicine to treat HIV or hepatitis C. Opioid medication can interact with many other drugs and cause dangerous side effects or . Be sure your doctor knows if you also use: cold or allergy medicines, bronchodilator asthma/COPD medication, or a diuretic ('water pill'); medicines for motion sickness, irritable bowel syndrome, or overactive bladder; other opioids--opioid pain medicine or prescription cough medicine; a sedative like Valium--diazepam, alprazolam, lorazepam, Xanax, Klonopin, Versed, and others; drugs that make you sleepy or slow your breathing--a sleeping pill, muscle relaxer, medicine to treat mood disorders or mental illness; drugs that affect serotonin levels in your body--a stimulant, or medicine for depression, Parkinson's disease, migraine headaches, serious infections, or nausea and vomiting. This list is not complete. Other drugs may affect acetaminophen and oxycodone, including prescription and equq-hlb-meirtpt medicines, vitamins, and herbal products. Not all possible interactions are listed here. Where can I get more information? Your doctor or pharmacist can provide more information about acetaminophen and oxycodone. Remember, keep this and all other medicines out of the reach of children, never share your medicines with others, and use this medication only for the indication prescribed. Every effort has been made to ensure that the information provided by [employer]') is accurate, up-to-date, and complete, but no guarantee is made to that effect. Drug information contained herein may be time sensitive. [employer] information has been compiled for use by healthcare practitioners and consumers in the [place] and therefore [employer] does not warrant that uses outside of the [place] are appropriate, unless specifically indicated otherwise. [employer] drug information does not endorse drugs, diagnose patients or recommend therapy. [employer] drug information isan informational resource designed to assist licensed healthcare practitioners in caring for their p atients and/or to serve consumers viewing this service as a supplement to, and not a substitute for, the expertise, skill, knowledge and judgment of healthcare practitioners. The absence of a warningfor a given drug or drug combination in no way should be construed to indicate that the drug or drug combination is safe, effective or appropriate for any given patient. [employer] does not assume any responsibility for any aspect of healthcare administered with the aid of information [employer] provides. The information contained herein is not intended to cover all possible uses, directions, precautions, warnings, drug interactions, allergic reactions, or adverse effects. If you have questions about the drugs you are taking, check with your doctor, nurse or pharmacist. Copyright 0314-4681 [employer] Version: 22.01. Revision Date: 04/26/2023. Education Materials Pain Relief Before and After Surgery Pain relief is an important part of your overall care before, during, and after surgery. You and your health care provider will work together to make a plan to manage pain that you have before surgery (preoperative) and after surgery (postoperative). Addressing pain before surgery lessens the pain that you will have after surgery. Make sure that you fully understand and agree with your pain relief plan. If you have questions or concerns, it is important to discuss them with your health care provider. If you have pain that is not controlled by medicine, tell your health care provider. Severe pain after surgery may: Prevent sleep. Decrease your ability to breathe deeply and to cough. This can result in pneumonia or upper airway infections. Cause your heart to beat more quickly. Cause your blood pressure to be higher. Increase your risk for stomach and digestive problems. Slow down wound healing. Lead to depression, anxiety, and feelings of helplessness. Your health care provider may use more than one method at a time to help relieve your pain. Using this approach may allow you to eat, move around, and possibly leave the hospital sooner. What are options for managing pain before and after surgery? Oral pain medicines Pain medicines taken by mouth (orally) include: Non-narcotic medicines: ? Acetaminophen. ? NSAIDs, such as ibuprofen and naproxen. Muscle relaxants. These may relieve pain caused by muscle spasms. Anticonvulsants. These medicines are usually used to treat seizures. They may help to lessen nerve pain. Opioids. These medicines relieve pain by binding to pain receptors in the brain and spinal cord (narcotic pain medicines). Opioids may help relieve short-term (acute) postoperative pain that is moderate to moderately severe. ? Opioids are often combined with non-narcotic medicines to improve pain relief, lower the risk of side effects, and lower the chance of addiction. ? To help prevent addiction, opioids are given for short periods of time in careful doses. If you follow instructions from your health care provider and you do not have a history of substance abuse, your risk of becoming addicted to opioids is low. Some of these medicines may be available in injectable form. They may be given through an IV if youare unable to eat or drink. As-needed pain control You can receive pain medicine when you need it, through an IV or as a pill or liquid. When you tellyour health care provider that you are having pain, he or she will give you the proper pain medicine. Medicine that numbs an area You may be given pain medicine that numbs an area (local anesthetic): As an injection near your painful area (local infiltration). As an injection near the nerve that provides feeling to a specific part of your body (peripheral nerve block). As an injection in your spine (spinal block). Through a local anesthetic reservoir pump. For this method, one or more catheters are inserted intoyour incision at the end of your procedure. These catheters are connected to a device that is filled with a non-narcotic pain medicine. Medicine gradually empties into your incision area over the next several days. Continuous epidural pain control With this method, you receive pain medicine through a small, thin tube (catheter) that is inserted into your back, near your spinal cord. Medicine flows through the catheter to lessen pain in areas of your body that are below the catheter. The catheter is usually put into the back shortly before surgery. It may be left in until you can eat, take medicine by mouth, pass urine, and have a bowel movement. This method may be recommended if you are having surgery on your abdomen, hip area, or legs. This method of pain relief may help you heal faster because you may be able to do these things sooner: Regain normal bowel and bladder function. Return to eating. Get up and walk. IV patient-controlled analgesia (LEASE ADMINISTRATION ANALYST) pump With this method, you receive pain medicine through an IV that is connected to a LEASE ADMINISTRATION ANALYST pump. The LEASE ADMINISTRATION ANALYST pump gives you a specific amount of medicine when you push a button. This lets you control how much medicine you receive. You are the only person who should push this button. The pump is set up so that you cannot accidentally give yourself too much medicine. You will be able to start using your LEASE ADMINISTRATION ANALYST pump in the recovery room after your procedure. Tell your health care provider: If you are having too much pain. If you cannot push the button. If you are feeling too sleepy or nauseous. Other pain control methods Other methods of pain relief after surgery include: Heat and cold therapy. Massage. Topical analgesics. These are patches, creams, and gels that can be applied on the skin. Steroid medicines. These medicines may be given to lessen swelling. Physical therapy. A physical therapist will work with you to meet goals, such as feeling and functioning better. Physical therapy usually includes specific exercises that are tailored to your needs. Transcutaneous electrical nerve stimulation (TENS). This method sends electrical signals through the skin to interrupt pain signals. Cognitive behavioral therapy (CBT). This therapy helps you learn coping skills for dealing with pain. What are some questions to ask my health care provider? What pain relief options would be best for me? What are the risks of each option? What are the benefits of each option? How long will I need pain relief after surgery? Summary A plan to manage pain that you may have before surgery (preoperative) and after surgery (postoperative) is an important part of your overall care. Pain management options include medicines and non-medical therapies, such as physical therapy, massage, and heat or cold therapy. Pain management medicines include opioids and non-narcotic medicines such as NSAIDs, steroids, or local anesthetics. Pain medicines can have side effects. Side effects of opioids include constipation, nausea, excessive sleepiness, and risk of addiction. Your health care provider will work with you to prevent or manage these side effects and risks. This information is not intended to replace advice given to you by your health care provider. Make sure you discuss any questions you have with your health care provider. Document Released: 12/01/2003 Document Revised: 09/13/2018 Document Reviewed: 12/21/2017 [employer] Patient Education 2020 [employer]. Additional Information VACCINATE! IT SAVES LIVES! Members of the community who have not yet received the COVID-19 vaccine and would like to receive it can visit one of [facility] vaccine clinics. There are many vaccine clinic locations within the [facility]. For locations and available times, please visit [email or web address] It is important to note that some COVID mobile vaccine clinics are held outdoors and may be canceled in rainy or stormy conditions. To learn more about pediatric vaccinations (ages 5-11), we invite you to visit the [facility] webpage. [email or web address] learn more about the COVID-19 vaccine, we invite you to visit the CDC website for a list of frequently asked questions.https://www.cdc.gov/coronavirus/2019-ncov/vaccines/faq.html [facility] Patient Portal Access Instructions: Stay connected with your healthcare team and access your personal medical information anytime with the [facility] Patient Portal. Please follow the directions below to create your [facility] account: 1.Access the email account you provided upon registration to the hospital/physician office.2.Look for an invitation email from [facility].3.Open the email and access the invitation link: AcceptInvitation to [facility].4.Fill in the required pemberton to create your account. To access your account, visit [email or web address]. Click the blue button labeled Access Patient Portal and then log in with the username and password that you created in the steps above. You will be able to view your test results, lab results, a summary of your visits, upcoming appointments and more. There is also a convenient messaging option where you can send secure messages to your p rovider. In addition, you will have the ability to download any documents or summaries to your computer and/or send the information securely to a physician. Remember that your healthcare information is confidential, so carefully consider who you will allowto register on the [facility] Patient Portal for access to your information. You can also access the [facility] Portal on the [facility]. Simply click on Patient Portal and then log into your account. If you would like to receive a full copy of your medical records, please contact the [facility] Medical Records Department by calling [phone], Sunday through Sunday between 8 a.m. and 4:30 p.m. HOW TO SAFELY DISPOSE OF PRESCRIPTION MEDICATIONS Please use one of the following methods to safely dispose of your unused medications. 1.Use a drug disposal kit: the drug disposal pouch allows you to safely discard your old and unuseddrugs. Ask your nurse to give you one when you are discharged.2.Visit a local take-back location: Many local pharmacies and police departments have programs that collect old and unwanted prescriptiondrugs. Call your local pharmacy or go to http://bit.ly/9H8Ar6d to find one close to you.3.Make use of household items: Use cat litter or old coffee grounds to dispose medications if other options arenot available. Mix your drugs with these household products, seal them in an airtight container andthrow it into the garbage. Call [facility]: [phone] to be sure your drugs can be disposed of in this way. Some medicines may require a different approach.4.Never flush your medications down the toilet. IF YOU HAVE BEEN PRESCRIBED AN OPIOID FOR PAIN If you have been prescribed an opioid (such as hydrocodone, oxycodone or morphine), it is critical to understand the possible side effects and risks of opioid pain medications. Even when taken as directed, opioids can have several side effects including: Tolerance, meaning you might need to take more of a medication for the same pain relief. Nausea, vomiting and/or constipation. Sleepiness, dizziness, dry mouth, confusion, depression or itching. Physical dependence, meaning you have withdrawal symptoms when a medication is stopped, can develop within a few days. KNOW YOUR RESPONSIBILITIES It is important to know exactly how much and how often to take the opioid pain medications you are prescribed. Never take opioids in higher amounts or more often than prescribed. Do not combine opioids with alcohol or other drugs that cause drowsiness, such as benzodiazepines, also known as benzos, including diazepam and alprazolam, muscle relaxants or sleep aids. Never sell or share prescription opioids. This is illegal. Store opioids in a secure place and out of reach of others (including children, family, friends and visitors). The last page of this document has been signed and retained as a CHART COPY. Signatures Patient Education Materials Pain Relief Before and After Surgery Medication Leaflets acetaminophen and oxycodone My discharge plan and instructions have been reviewed and explained to me and I,SARTHAK PUTNAM JR Aunderstand my current condition and have read and understand these discharge instructions. I have received a written copy of the plan/instructions. If I have questions, I am aware that I should contact my doctor. Patient/Service Counselor Signature: Date/Time: Relationship to Patient: Witness Name/Signature: [id number] Card[facility] Consult note Date of Service 01/06/2025 08:24:21 Reason for Consultation Recently diagnosed atrial fibrillation, antiplatelet/anticoagulation recommendations Referring Physician Dr. Parker History of Present Illness 69-year-old male with history of CAD status post PCI (bare-metal stent to RCA in 2009, also PCI in January 2024), recently diagnosed atrial fibrillation December 2024 hypertension, hyperlipidemia, COPD on 2L oxygen, cervical spinal stenosis/spondylosis with myelopathy, anxiety depression Patient admitted to the hospital for second staged cervical surgery of C3 C7, laminectomy with posterior fusion. Cardiology consulted recently diagnosed atrial fibrillation and antiplatelet/anticoagulation recommendations. Per documentation, patient was with cardiology in [place]. He was diagnosed early December with new onset atrial fibrillation, plan was to start Eliquis after surgery whenever orthopedic surgery cleared the patient. Currently patient is hemodynamically stable on 3 L nasal cannula. Labs show mild leukocytosis, stable electrolytes, normal renal function, elevated LFTs. No EKG done this admission Review of Systems Per HPI, Complete ROS otherwise negative Physical Exam Vitals and Measurements T: 37.0 C (Oral) TMIN: 35.42 C TMAX: 37.0 C (Oral) HR: 82 RR: 16 BP: 132/82 SpO2: 97% HT: 175.3 cm WT: 73 kg BMI: 23.76 Weight Dosing Weight: 73 kg (01/05/25) Dosing Weight: 73 kg (01/05/25) General: AAOX3, NAD HEENT: Anicteric sclera, MMM Neck: Trachea midline, no JVD appreciated CVS: RRR, normal S1/S2, no murmurs/rubs/gallops Lung: CTAB, no wheezes/rhonchi/rales Abd: Soft, NT/ND Extrem: WWP, no LE edema Skin: Warm, Intact Neuro: AAOX3, spontaneous movement of all extremities Psych: Appropriate mood & affect Lab Results 01/06 04:11 WBC: 11.5 H Hgb: 12.1 L Hct: 36.5 L Platelet: 266 Neutrophil %: 82.5 H Glucose Level: 132 H Sodium Level: 141 Potassium Level: 4.3 BUN: 16.0 Creatinine Lvl (s): 0.90 01/05 17:33 WBC: 10.4 Hgb: 13.4 Hct: 40.2 Platelet: 282 Glucose Level: 151 H Sodium Level: 141 Potassium Level: 4.4 BUN: 17.0 Creatinine Lvl (s): 1.04 01/05 07:53 Platelet: 293 Protime: 11.0 PT International Ratio: 1.0 Assessment/Plan Recently diagnosed atrial fibrillation Admitted for cervical surgery History of CAD status post PCI History of: 69-year-old male with history of CAD status post PCI (bare-metal stent to RCA in 2009, also PCI in January 2024), recently diagnosed atrial fibrillation December 2024 hypertension, hyperlipidemia, COPD on 2L oxygen, cervical spinal stenosis/spondylosis with myelopathy, anxiety depression Patient admitted to the hospital for second staged cervical surgery of C3 C7, laminectomy with posterior fusion. Cardiology consulted recently diagnosed atrial fibrillation and antiplatelet/anticoagulation recommendations. Per documentation, patient was with cardiology in [place]. He was diagnosed early December with new onset atrial fibrillation, plan was to start Eliquis after surgery whenever orthopedic surgery cleared the patient. Currently patient is hemodynamically stable on 3 L nasal cannula. Labs show mild leukocytosis, stable electrolytes, normal renal function, elevated LFTs. No EKG done this admission Plan Ordered EKG shows sinus rhythm Due to PCI less than 12 months ago, recommend continuation of Plavix and Eliquis when cleared by surgery. Patient was discharged prior to attending evaluation. Cardiology service will sign off, please do not hesitate to reach out for any questions. Thank you for the consult. 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 New onset atrial fibrillation Orthopedic aftercare Spinal stenosis at L4-L5 level Status post cervical arthrodesis Stented coronary artery Historical Chest pain Procedure/Surgical History Cardiac catheterization: 01/2024 Biopsy of lun12/2023 Cardiac catheterization: 2008 Microdiscectomy: 1996 Cervical spinal fusion Medications Inpatient atorvastatin, 80 mg= 1 tab(s), Oral, qAM busPIRone, 7.5 mg= 1 tab(s), Oral, BID Dextrose 50% IV Push, 25 gram(s)= 50 mL, IV Push, AsDirected, PRN Dilaudid, 0.5 mg= 0.5 mL, IV Push, q3h, PRN DuoNeb, 3 mL, Inhalation, q4hRT, PRN LR 1,000 mL, 1000 mL, Intravenous Miralax Powder Packet, 17 gram(s)= 15 mL, Oral, qDay, PRN mirtazapine, 30 mg= 2 tab(s), Oral, qHS Pepcid, 20 mg= 1 tab(s), Oral, qDay Percocet 325/5, 2 tab(s), Oral, q4h, PRN Protonix, 40 mg= 1 tab(s), Oral, qDayAC tiZANidine, 2 mg= 1 tab(s), Oral, q8h, PRN Tylenol, 650 mg= 2 tab(s), Oral, q6h, PRN Tylenol, 650 mg= 2 tab(s), Oral, q4h, PRN Zofran, 4 mg= 2 mL, IV Push, q4h, PRN Home atorvastatin 80 mg oral tablet, 80 mg= 1 tab(s), Oral, qAM busPIRone 7.5 mg oral tablet, 7.5 mg= 1 tab(s), Oral, BID clopidogrel 75 mg oral tablet, 75 mg= 1 tab(s), Oral, qAM, On hold for Surgery Eliquis 5 mg oral tablet mirtazapine 30 mg oral tablet, 30 mg= 1 tab(s), Oral, qHS mupirocin 2% topical ointment, 1 lino, Topical, BID Oxygen, 2 liters, Nasal, qHS Percocet 5 mg-325 mg oral tablet, 1 tab(s), Oral, q6h, PRN Protonix 40 mg oral enteric coated tablet, 40 mg= 1 tab(s), Oral, qDayAC, 6 refills tiZANidine 2 mg oral tablet, 2 mg= 1 tab(s), Oral, q8h, PRN Trelegy Ellipta 200 mcg-62.5 mcg-25 mcg/inh inhalation powder, 1 inh, Inhalation, 12 (noon) Allergies NKA Social History Smoking Status - 04/24/2015 Current every day smoker Alcohol - Denies Alcohol Use, 09/06/2018 Use: Never., 11/29/2023 Home/Environment Living situation: Home/Independent. Safe place to go: Yes. Domestic Concerns: None. Lives In: Single level home. Current Home Treatments Oxygen therapy, walker. Professional Skilled Services or Special Community Resources None. Marital Status: ., 12/22/2024 Sexual - No Risk, 09/06/2018 Substance Abuse - Denies Substance Abuse, 09/06/2018 Use: Never., 11/29/2023 Tobacco - High Risk, 09/06/2018 Nicotine Use: Former smoker, quit more than 30 days ago. Type: Cigarettes. Started at age: 8 Years.Stopped at age: 68 Years., 10/21/2024 Family History Cancer: Mother and Father. Diabetes mellitus: Mother. HTN - Hypertension: Mother. Heart attack: Sister. Heart disease: Mother, Father and Brother. Health Status Family Member(s) Immunizations pneumococcal 23-valent vaccine(Pneumovax: 0.5 unknown unit (03/09/20) pneumococcal 23-valent vaccine(Pneumovax: 0.5 mL (04/07/10) tetanus/diphth/pertuss (Tdap) adult/adol: 0 unknown unit (04/20/16) Digitally Signed by NATAN NICKERSON DO on 01/06/2025 02:42 PM [id number] Note Date of Service 01/06/2025 Subjective Patient is resting in bedside chair, he states that he was having some difficulty with swallowing with this has been dating back for quite some time now, she is on a pur ed diet. Declines any uncontrolled pain, declines any abdominal pain. No nausea or vomiting. No odynophagia. No fever or chills. Objective Vitals and Measurements T: 37.0 C (Oral) TMIN: 35.42 C TMAX: 37.0 C (Oral) HR: 82 RR: 16 BP: 132/82 SpO2: 97% HT: 175.3 cm WT: 73 kg BMI: 23.76 Intake and Output 7AM Yesterday to 7AM Today Intake and Output (Last 24 hours) Intake Administration Information 1627.55 Oral Intake 480.00 Output Urine Voided 0.00 Urinary Catheter Output: 750.00 Intra-Op EBL 400.00 Stool Count 0.00 Urine Count 0.00 Total Summary Total Intake 2107.55 Total Output 1150.00 Fluid Balance 957.55 Physical Exam Resting at the bedside chair, no acute distress. Posterior neck with postop dressing in place. Alert and oriented x 3, no focal neurologic deficits. Weight Dosing Weight: 73 kg (01/05/25) Dosing Weight: 73 kg (01/05/25) Medications Medications (15) Active Scheduled: (5) atorvastatin 80 mg tablet 80 mg 1 tab(s), Oral, qAM busPIRone 7.5 mg tablet 7.5 mg 1 tab(s), Oral, BID famotidine 20 mg tablet 20 mg 1 tab(s), Oral, qDay mirtazapine 15 mg tablet 30 mg 2 tab(s), Oral, qHS pantoprazole 40 mg EC tablet 40 mg 1 tab(s), Oral, qDayAC Continuous: (1) Lactated Ringers 1,000 mL 1,000 mL, Intravenous, 20 mL/hr PRN: (9) acetaminophen 325 mg Tablet 650 mg 2 tab(s), Oral, q4h acetaminophen 325 mg Tablet 650 mg 2 tab(s), Oral, q6h acetaminophen-OXYcodone 325 mg-5 mg Tablet 2 tab(s), Oral, q4h albuterol - ipratropium 2.5 mg-0.5 mg/3 mL Inhal Barbara UD 3 mL, Inhalation, q4hRT dextrose 50% Solution Disp syringe 50 mL 25 gram(s) 50 mL, IV Push, AsDirected HYDROmorphone 0.5 mg/0.5 mL syringe 0.5 mg 0.5 mL, IV Push, q3h ondansetron 2 mg/ 1 mL 2 mL INJ 4 mg 2 mL, IV Push, q4h polyethylene glycol 3350 - UD packet 17 gram(s) 15 mL, Oral, qDay tiZANidine 2 mg tablet 2 mg 1 tab(s), Oral, q8h Lab Results 01/06 04:11 WBC: 11.5 H Hgb: 12.1 L Hct: 36.5 L Platelet: 266 Neutrophil %: 82.5 H Glucose Level: 132 H Sodium Level: 141 Potassium Level: 4.3 BUN: 16.0 Creatinine Lvl (s): 0.90 01/05 17:33 WBC: 10.4 Hgb: 13.4 Hct: 40.2 Platelet: 282 Glucose Level: 151 H Sodium Level: 141 Potassium Level: 4.4 BUN: 17.0 Creatinine Lvl (s): 1.04 01/05 07:53 Platelet: 293 Protime: 11.0 PT International Ratio: 1.0 Imaging Results and Diagnostics XR Fluoro 2 Hrs Tech Time Result Date: January 05, 2025 Verified By: FREDERICK DURANT DO CLINICAL STATEMENT: IMPRESSION: Intraprocedural fluoroscopic spot images as above. See separate procedurereport for more information. EKG No qualifying data available. 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 Speech therapy to evaluate for dysphagia which appears to be chronic, does not appear to have any episodes of aspiration, no odynophagia. Regards to the patient's recent atrial fibrillation, has been seen by cardiology, was started on Eliquis but was instructed not to take until after surgery. Discussed with orthopedic surgery, hold anticoagulation 72 hours postop which would be around 01/07/2025. I discussed in great detail with the patient regarding discontinuing his aspirin indefinitely. It has been about 1 year since he had his stent placed per the patient. He has also had a RCA stent in 2009. Can discuss further with his heart doctor whether he would need Plavix and if he could be switched to baby aspirin in combination with his Eliquis. For now, we will continue with dual therapy with Plavix and Eliquis which can be resumed on morning as per orthopedic surgery recommendations. Patient expressed understanding of this Outpatient follow-up with cardiology, no need to perform inpatient echocardiogram. Resume home medications as deemed appropriate otherwise. Regards to transaminitis, this appears to be improving, likely from his myelopathy/elevated CPK. Continue to hold statin for the next 2 days. I discussed this with the patient as well. Repeat CMP in 1 week. Follow-up with primary care physician. Okay for discharge from medical standpoint with close outpatient follow-up. This is a note transcribed by me, the attending physician on service using the '[employer]' dictation software. Please excuse any grammatical errors, repetitions/duplications if any are present in the entirety of this note. Thank you. Digitally Signed by HERMELINDO YOUNG MD on 01/06/2025 10:01 AM [id number] Orthopa[facility] surgery Progress note Date of Service 01/06/25 Subjective No acute events overnight. Pain is controlled. Patient feels that he has improvement in strength and sensation in the bilateral upper extremities. No new orthopedic complaints. Tolerating diet. Understands that he will work with physical therapy today and may be able to go home pending evaluation Objective Vitals and Measurements T: 36.9 C (Oral) TMIN: 35.42 C TMAX: 36.9 C (Oral) HR: 99 RR: 16 BP: 125/84 SpO2: 94% HT: 175.3 cm WT: 73 kg BMI: 23.76 Intake and Output 7AM Yesterday to 7AM Today Intake and Output (Last 24 hours) Intake Administration Information 1627.55 Oral Intake 480.00 Output Urine Voided 0.00 Urinary Catheter Output: 750.00 Intra-Op EBL 400.00 Stool Count 0.00 Urine Count 0.00 Total Summary Total Intake 2107.55 Total Output 1150.00 Fluid Balance 957.55 Physical Exam General Appearance: Lying in bed in no acute distress. MSK: Spine: Posterior surgical site dressing clean dry and intact, appropriate tenderness to palpation surgical site RUE: Fires shoulder forward flexors/extensors, elbow flexors/extensors, wrist flexors/extensors; 4+/5 strength. SILT all dematomes. Palp radial pulse. LUE: Fires shoulder forward flexors/extensors, elbow flexors/extensors, wrist flexors/extensors; 4/5 strength. SILT all dematomes. Palp radial pulse. RLE: Fires hip flexors/extensors/abductors/adductors, quads, TA/EHL/FHL/gastrocs. SILT all dematomes. 4/5 strength hip flexors/extensors/abductors/adductors, quads, TA/EHL/FHL/gastrocs. Palpable DP/PT pulses. LLE: Fires hip flexors/extensors/abductors/adductors, quads, TA/EHL/FHL/gastrocs. SILT all dematomes. 4/5 strength hip flexors/extensors/abductors/adductors, quads, TA/EHL/FHL/gastrocs. Palpable DP/PT pulses. Weight Dosing Weight: 73 kg (01/05/25) Dosing Weight: 73 kg (01/05/25) Medications Medications (15) Active Scheduled: (5) atorvastatin 80 mg tablet 80 mg 1 tab(s), Oral, qAM busPIRone 7.5 mg tablet 7.5 mg 1 tab(s), Oral, BID famotidine 20 mg tablet 20 mg 1 tab(s), Oral, qDay mirtazapine 15 mg tablet 30 mg 2 tab(s), Oral, qHS pantoprazole 40 mg EC tablet 40 mg 1 tab(s), Oral, qDayAC Continuous: (1) Lactated Ringers 1,000 mL 1,000 mL, Intravenous, 20 mL/hr PRN: (9) acetaminophen 325 mg Tablet 650 mg 2 tab(s), Oral, q4h acetaminophen 325 mg Tablet 650 mg 2 tab(s), Oral, q6h acetaminophen-OXYcodone 325 mg-5 mg Tablet 2 tab(s), Oral, q4h albuterol - ipratropium 2.5 mg-0.5 mg/3 mL Inhal Barbara UD 3 mL, Inhalation, q4hRT dextrose 50% Solution Disp syringe 50 mL 25 gram(s) 50 mL, IV Push, AsDirected HYDROmorphone 0.5 mg/0.5 mL syringe 0.5 mg 0.5 mL, IV Push, q3h ondansetron 2 mg/ 1 mL 2 mL INJ 4 mg 2 mL, IV Push, q4h polyethylene glycol 3350 - UD packet 17 gram(s) 15 mL, Oral, qDay tiZANidine 2 mg tablet 2 mg 1 tab(s), Oral, q8h Lab Results 01/06 04:11 WBC: 11.5 H Hgb: 12.1 L Hct: 36.5 L Platelet: 266 Neutrophil %: 82.5 H Glucose Level: 132 H Sodium Level: 141 Potassium Level: 4.3 BUN: 16.0 Creatinine Lvl (s): 0.90 01/05 17:33 WBC: 10.4 Hgb: 13.4 Hct: 40.2 Platelet: 282 Glucose Level: 151 H Sodium Level: 141 Potassium Level: 4.4 BUN: 17.0 Creatinine Lvl (s): 1.04 01/05 07:53 Platelet: 293 Protime: 11.0 PT International Ratio: 1.0 EKG No qualifying data available. Assessment/Plan Myelopathy concurrent with and due to spinal stenosis of cervical region Postoperative day # 1 from a C3-7 posterior laminectomy and fusion -Weight bearing activity: Weightbearing as tolerated bilateral upper extremities, bilateral lower extremities -PT/OT: Pending -DVT prophylaxis: Contraindicated at this time -Hgb: 12.1 -Maintain dressing, reinforce as needed. May change if oversaturated -Finish 24-hour perioperative antibiotics today -Orthospine observation [place] [place] -Case management consulted for discharge planning -If the patient is cleared by physical therapy and controlled on oral pain medications, he may discharge home leave today -We will discuss with attending, Dr. Fischer Post-op pain Ordered: acetaminophen-oxyCODONE(Percocet 5 mg-325 mg oral tablet), 1 tab(s), Oral, q6h, PRN Orders: acetaminophen(Tylenol), 650 mg= 2 tab(s), Oral, q6h, PRN acetaminophen(Tylenol), 650 mg= 2 tab(s), Oral, q4h, PRN acetaminophen-oxyCODONE(Percocet 325/5), 2 tab(s), Oral, q4h, PRN famotidine(Pepcid), 20 mg= 1 tab(s), Oral, qDay glucose(Dextrose 50% IV Push), 25 gram(s)= 50 mL, IV Push, AsDirected, PRN HYDROmorphone(Dilaudid), 0.5 mg= 0.5 mL, IV Push, q3h, PRN Lactated Ringers Infusion 1,000 mL(LR 1,000 mL), 1000 mL, Intravenous ondansetron(Zofran), 4 mg= 2 mL, IV Push, q4h, PRN polyethylene glycol 3350(Miralax Powder Packet), 17 gram(s)= 15 mL, Oral, qDay, PRN tiZANidine(tiZANidine 2 mg oral tablet), 2 mg= 1 tab(s), Oral, q8h, PRN Activity as tolerated, 01/05/25 16:05:00 EDT, Constant Order Admit to Inpatient, 01/05/25 16:41:00 EDT, Admit: MANDO FISCHER DO, Level of Care: Regular floor, Reason for Admission: See History & Physical, Expected Length of Stay: More Than Two Midnights, Diagnosis: cervical spinal stenosis with myelopathy, Constant Order Ambulate, 01/05/25 16:05:00 EDT, TID, In halls with assistance if needed Antiembolism Stocking Application Knee High, 01/05/25 15:21:00 EDT, q4h, Bilateral Lower Extremities Blood Glucose Call Parameter, 01/05/25 16:05:00 EDT, If patient is NPO for x-ray or surgery and hypoglycemic, call physician for further orders, Constant order Blood Glucose Call Parameter, 01/05/25 16:05:00 EDT, call provider if patient's blood glucose is <70mg/dL, Constant order Code Status, 01/05/25 16:05:00 EDT, Full Code, Patient, Constant Order Communication Order (continuous), 01/05/25 16:05:00 EDT, Stat EKG will be obtained in the setting of new, ongoing or worsening chest discomfort/acute coronary syndrome symptoms in all nursing units and/or rhythm change in all monitored units., Constant order Consult to Case Management/Social Service, 01/05/25 16:05:00 EDT, Discharge Planning Consult to Occupational Therapy, 01/05/25 16:05:00 EDT, Once, Decreased safety Consult to Physical Therapy, 01/05/25 16:05:00 EDT, Once, Decreased mobility Diet Order, 01/05/25 23:00:00 EDT, [id number], Constant Order, : N/A, : N/A Discharge Per Criteria, 01/05/25 16:05:00 EDT, q2hrs Incentive Spirometer, 01/05/25 16:05:00 EDT, [id number], reinstruct patient on use every shift Intake and Output, 01/05/25 16:05:00 EDT, q8h (2p, 10p, 6a) Neurovascular Check lower extremity, 01/06/25 16:05:00 EDT, qShift Neurovascular Check lower extremity, 01/05/25 16:05:00 EDT, q4h, 24 hour(s), 01/06/25 14:00:00 EDT,then q shift Neurovascular Check upper extremity, 01/06/25 16:05:00 EDT, qShift Neurovascular Check upper extremity, 01/05/25 16:05:00 EDT, q4h, 24 hour(s), 01/06/25 14:00:00 EDT,then q shift SCIP Contraindication to VTE Pharmacological Prophylaxis, Bleeding risk Sequential Compression Device Application(SCD Application), 01/05/25 15:21:00 EDT, Knee high, q4h, Bilateral Soft Cervical Collar Application(Cervical Collar - Soft Application), 01/05/25 16:05:00 EDT, Check:qShift, as needed for comfort Vital Signs, 01/05/25 16:21:00 EDT, q30min Vital Signs, 01/05/25 16:05:00 EDT, q4hr, 24 hour(s), 01/06/25 13:00:00 EDT, BP, pulse, respirations, temperature Vital Signs, 01/06/25 16:05:00 EDT, q8hr, BP, pulse, respirations, temperature Digitally Signed by NONA BOOKER MD on 01/06/2025 07:18 AM [id number] Consult note Date of Service January 05, 2025 Reason for Consultation Medical management Referring Physician Dr. Mando Fischer History of Present Illness A 69 years old female with past medical history significant for cervical spinal stenosis/spondylosis with myelopathy, new onset atrial fibrillation, COPD on 2 L of oxygen at night, coronary artery disease status post PCI in January 2024 normally on dual antiplatelets, GERD, anxiety/depression was admitted by orthospine service for C3-C7 laminectomy with posterior fusion with fixation. Hospitalist team was consulted for medical management. Patient had cervical discectomy and fusion done in July 2024, he presented for a second stage procedure today and underwent C3-C7 laminectomy with posterior fusion with fixation. Patient will take aspirin and Plavix at home, aspirin has been on hold for 7 days and Plavix has been on hold for 10days per family report. 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 Vital signs, labs, imaging is/will be personally reviewed Basic labs are pending. Patient normotensive on my evaluation. MRI of cervical spine done in September 2024 showed anterior cervical fusion of C3-C4 and C6-C7, severe spinal canal stenosis at C3-C4 and C5-6 to C7 with a moderate cord compression at C6-C7 and mild cord compression at C3-C4, small focus of increased T2 signal within the cord at C6-C7 consistent with myelomalacia. Review of Systems Review of systems are negative except as mentioned in HPI Physical Exam Vitals and Measurements T: 36.8 C (Temporal Artery) TMIN: 35.42 C TMAX: 36.8 C (Temporal Artery) HR: 90 RR: 18 BP: 125/83 SpO2: 91% HT: 175.3 cm WT: 73 kg BMI: 23.76 Weight Dosing Weight: 73 kg (01/05/25) Dosing Weight: 73 kg (01/05/25) General Appearance: Appears to be stable and in no acute distress Head: Atraumatic and normocephalic EENT: EOMI, PERRLA, no oropharyngeal erythema, no tonsillar exudates, no conjunctival injection. sclera anicteric. Neck: No thyromegaly, no cervical lymphadenopathy, trachea midline Cardiac: S1 and S2 normal. RRR. No murmurs, rubs, or gallops. No JVD. No hepatojugular reflex. Lungs: Good air entry bilaterally. No increased work for breathing. No wheezes, rhonchi, or rales. Abdomen: Soft, nontender, nondistended. Normoactive bowel sounds. No rebound or guarding. Negative Mendez's sign. No hepatosplenomegaly. Musculoskeletal: Full range of motion upper and lower extremities. No CVA tenderness. Extremities: No lower extremity pitting edema. 2+ radial and pedal pulses bilaterally. Neurological: No gross motor deficits Skin: No abrasions, scars, or hematomas on visible skin. No cyanosis. No purulent discharge. Psychiatric: Alert and oriented, well groomed, euthymic. cooperative Lab Results 01/05 07:53 Platelet: 293 Protime: 11.0 PT International Ratio: 1.0 WBC: 7.7 10^3/mcL (12/22/24 08:14:00) RBC: 4.68 10^6/mcL (12/22/24 08:14:00) Hgb: 14.9 G/dL (12/22/24 08:14:00) Hct: 44.8 % (12/22/24 08:14:00) MCV: 95.7 fL (12/22/24 08:14:00) MCH: 31.8 pg (12/22/24 08:14:00) MCHC: 33.3 G/dL (12/22/24 08:14:00) RDW: 14.8 % (12/22/24 08:14:00) Platelet: 293 10^3/mcL (01/05/25 07:53:00) MPV: 6.8 fL (12/22/24 08:14:00) Neutrophil %, Manual: 65 % (12/22/24 08:14:00) Lymphocyte %, Manual: 19 % Low (12/22/24 08:14:00) Monocyte %, Manual: 10 % (12/22/24 08:14:00) Eosinophil %, Manual: 3 % (12/22/24 08:14:00) Basophil %, Manual: 0 % (12/22/24 08:14:00) Bands: 1 % (12/22/24 08:14:00) Metamyelocyte: 2 % (12/22/24 08:14:00) Nucleated RBC: 0 /100 WBC (12/22/24 08:14:00) Neutrophil, Abs Manual: 5.1 10^3/mcL (12/22/24 08:14:00) Lymphocyte, Abs Manual: 1.5 10^3/mcL (12/22/24 08:14:00) Monocyte, Abs Manual: 0.8 10^3/mcL (12/22/24 08:14:00) Eosinophil, Abs Manual: 0.2 10^3/mcL (12/22/24 08:14:00) Basophil, Abs Manual: 0 10^3/mcL (12/22/24 08:14:00) Platelet Estimate: Adequate (12/22/24 08:14:00) Anisocytosis: 1+ (12/22/24 08:14:00) APTT: 33.1 seconds (01/05/25 07:53:00) Protime: 11 seconds (01/05/25 07:53:00) PT International Ratio: 1 ratio (01/05/25 07:53:00) Fibrinogen: 631 mg/dL High (01/05/25 07:53:00) Glucose Level: 93 mg/dL (12/22/24 08:14:00) Sodium Level: 140 mEq/L (12/22/24 08:14:00) Potassium Level: 3.9 mEq/L (12/22/24 08:14:00) Chloride: 107 mEq/L (12/22/24 08:14:00) CO2: 22 mEq/L (12/22/24 08:14:00) Electrolyte Balance: 11 mEq/L (12/22/24 08:14:00) BUN: 13 mg/dL (12/22/24 08:14:00) Creatinine Lvl (s): 0.87 mg/dL (12/22/24 08:14:00) Estimated Glomerular Filtration Rate: 93 ml/min/1.73sqm (12/22/24 08:14:00) BUN/Creatinine Ratio: 14.9 ratio (12/22/24 08:14:00) Calcium Lvl: 9.5 mg/dL (12/22/24 08:14:00) Imaging Results and Diagnostics XR Fluoro 2 Hrs Tech Time Result Date: January 05, 2025 Verified By: FREDERICK DURANT DO CLINICAL STATEMENT: IMPRESSION: Intraprocedural fluoroscopic spot images as above. See separate procedurereport for more information. Assessment/Plan Patient is admitted by orthospine service for cervical spine surgery due to cervical spinal stenosis with myelopathy, hospitalist team was consulted for medical management Assessment: Cervical spinal stenosis Cervical myelopathy Coronary artery disease New onset atrial fibrillation COPD Chronic hypoxic respiratory failure GERD Anxiety/depression Plan: -Patient underwent initial surgery in July 2024 for including cervical discectomy and fusion, he underwent C3-C7 laminectomy with posterior fusion with fixation today. Pain management per primary service, evidence of myelopathy and cervical spinal cord compression onMRI cervical spine done in September 2024 - Continue home statin for coronary artery disease, on aspirin and Plavix at baseline however he also diagnosed with new onset A-fib around 7 days ago, usually we do not need 3 different antiplatelets/anticoagulation and patient can be started on Plavix and Eliquis once cleared by orthospine service however I did consult cardiology for recommendations regarding antiplatelet/anticoagulation and ordered echocardiogram. - Patient is on 2 L of oxygen at night for COPD, as needed breathing treatments have been ordered - Continue home pantoprazole for GERD - Continue home buspirone and mirtazapine for anxiety/depression DVT prophylaxis: Per primary service Note was written using [employer] brim flexer software. Some of the meaning of the words and sentences might have changed during brim flexer, if there was ever some confusion about the meaning of some sentences, please do not hesitate to contact me. 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 New onset atrial fibrillation Orthopedic aftercare Spinal stenosis at L4-L5 level Status post cervical arthrodesis Stented coronary artery Historical Chest pain Procedure/Surgical History Cardiac catheterization: 01/2024 Biopsy of lun12/2023 Cardiac catheterization: 2008 Microdiscectomy: 1996 Cervical spinal fusion Medications Inpatient atorvastatin, 80 mg= 1 tab(s), Oral, qAM busPIRone, 7.5 mg= 1 tab(s), Oral, BID Dextrose 50% IV Push, 25 gram(s)= 50 mL, IV Push, AsDirected, PRN Dilaudid, 0.5 mg= 0.5 mL, IV Push, q3h, PRN DuoNeb, 3 mL, Inhalation, q4hRT, PRN LR 1,000 mL, 1000 mL, Intravenous Miralax Powder Packet, 17 gram(s)= 15 mL, Oral, qDay, PRN mirtazapine, 30 mg= 2 tab(s), Oral, qHS Pepcid, 20 mg= 1 tab(s), Oral, qDay Percocet 325/5, 2 tab(s), Oral, q4h, PRN Protonix, 40 mg= 1 tab(s), Oral, qDayAC tiZANidine, 2 mg= 1 tab(s), Oral, q8h, PRN Tylenol, 650 mg= 2 tab(s), Oral, q6h, PRN Tylenol, 650 mg= 2 tab(s), Oral, q4h, PRN Zofran, 4 mg= 2 mL, IV Push, q4h, PRN Home aspirin 81 mg oral delayed release tablet, 81 mg= 1 tab(s), Oral, qAM, On hold for Surgery atorvastatin 80 mg oral tablet, 80 mg= 1 tab(s), Oral, qAM busPIRone 7.5 mg oral tablet, 7.5 mg= 1 tab(s), Oral, BID clopidogrel 75 mg oral tablet, 75 mg= 1 tab(s), Oral, qAM, On hold for Surgery mirtazapine 30 mg oral tablet, 30 mg= 1 tab(s), Oral, qHS mupirocin 2% topical ointment, 1 lino, Topical, BID Oxygen, 2 liters, Nasal, qHS Percocet 5 mg-325 mg oral tablet, 1 tab(s), Oral, q6h, PRN Protonix 40 mg oral enteric coated tablet, 40 mg= 1 tab(s), Oral, qDayAC, 6 refills tiZANidine 2 mg oral tablet, 2 mg= 1 tab(s), Oral, q8h, PRN Trelegy Ellipta 200 mcg-62.5 mcg-25 mcg/inh inhalation powder, 1 inh, Inhalation, 12 (noon) Allergies NKA Social History Smoking Status - 04/24/2015 Current every day smoker Alcohol - Denies Alcohol Use, 09/06/2018 Use: Never., 11/29/2023 Home/Environment Living situation: Home/Independent. Safe place to go: Yes. Domestic Concerns: None. Lives In: Single level home. Current Home Treatments Oxygen therapy, walker. Professional Skilled Services or Special Community Resources None. Marital Status: ., 12/22/2024 Sexual - No Risk, 09/06/2018 Substance Abuse - Denies Substance Abuse, 09/06/2018 Use: Never., 11/29/2023 Tobacco - High Risk, 09/06/2018 Nicotine Use: Former smoker, quit more than 30 days ago. Type: Cigarettes. Started at age: 8 Years.Stopped at age: 68 Years., 10/21/2024 Family History Cancer: Mother and Father. Diabetes mellitus: Mother. HTN - Hypertension: Mother. Heart attack: Sister. Heart disease: Mother, Father and Brother. Health Status Family Member(s) Immunizations pneumococcal 23-valent vaccine(Pneumovax: 0.5 unknown unit (03/09/20) pneumococcal 23-valent vaccine(Pneumovax: 0.5 mL (04/07/10) tetanus/diphth/pertuss (Tdap) adult/adol: 0 unknown unit (04/20/16) Digitally Signed by ONUR PARKER MD on 01/05/2025 05:11 PM [id number] Anesthesiology Consult note Patient: SARTHAK PUTNAM JR Age: 69 years Sex: Male : 1955 Associated Diagnoses: None Author: BARRIE TAYLOR DO Postoperative Information Post Operative Info: Post op day: Post Anesthesia Care Unit. Patient location: PACU. Assessment Postanesthesia assessment Vitals: Vital signs from flowsheet : Vital Signs 01/05/2025 15:39 EDT Temperature Temporal Artery 36.3 DegC Heart Rate Monitored 90 bpm Respiratory Rate 18 br/min Systolic Blood Pressure Non-Invasive 104 mmHg Diastolic Blood Pressure Non-Invasive 83 mmHg Mean Arterial Pressure (NBP) 92 mmHg 01/05/2025 15:27 EDT Respiratory Rate 20 br/min 01/05/2025 15:24 EDT Heart Rate Monitored 90 bpm Respiratory Rate 20 br/min Systolic Blood Pressure Non-Invasive 109 mmHg Diastolic Blood Pressure Non-Invasive 98 mmHg HI Mean Arterial Pressure (NBP) 103 mmHg 01/05/2025 15:09 EDT Temperature Temporal Artery 36.5 DegC Heart Rate Monitored 86 bpm Respiratory Rate 12 br/min LOW Systolic Blood Pressure Non-Invasive 114 mmHg Diastolic Blood Pressure Non-Invasive 80 mmHg Mean Arterial Pressure (NBP) 88 mmHg Blood Pressure Method Automatic Blood Pressure Location Left arm Blood Pressure Cuff Size Medium 01/05/2025 15:05 EDT Respiratory Rate - Anes 0 br/min br/min 01/05/2025 15:04 EDT Systolic Blood Pressure Non-Invasive 124 mmHg mmHg Diastolic Blood Pressure Non-Invasive 75 mmHg mmHg 01/05/2025 15:01 EDT Systolic Blood Pressure Non-Invasive 121 mmHg mmHg Diastolic Blood Pressure Non-Invasive 71 mmHg mmHg 01/05/2025 15:00 EDT Respiratory Rate - Anes 5 br/min br/min 01/05/2025 14:58 EDT Systolic Blood Pressure Non-Invasive 121 mmHg mmHg Diastolic Blood Pressure Non-Invasive 74 mmHg mmHg 01/05/2025 14:55 EDT Respiratory Rate - Anes 10 br/min br/min Systolic Blood Pressure Non-Invasive 116 mmHg mmHg Diastolic Blood Pressure Non-Invasive 76 mmHg mmHg 01/05/2025 14:50 EDT Heart Rate Monitored 77 bpm bpm Respiratory Rate - Anes 10 br/min br/min 01/05/2025 14:47 EDT Systolic Blood Pressure Non-Invasive 98 mmHg mmHg Diastolic Blood Pressure Non-Invasive 76 mmHg mmHg 01/05/2025 14:45 EDT Temperature (Route Not Specified) 36.14 DegC DegC Heart Rate Monitored 79 bpm bpm Respiratory Rate - Anes 10 br/min br/min 01/05/2025 14:44 EDT Systolic Blood Pressure Non-Invasive 103 mmHg mmHg Diastolic Blood Pressure Non-Invasive 72 mmHg mmHg 01/05/2025 14:40 EDT Temperature (Route Not Specified) 36.1 DegC DegC Heart Rate Monitored 79 bpm bpm Respiratory Rate - Anes 10 br/min br/min Systolic Blood Pressure Non-Invasive 91 mmHg mmHg Diastolic Blood Pressure Non-Invasive 79 mmHg mmHg 01/05/2025 14:38 EDT Systolic Blood Pressure Non-Invasive 83 mmHg mmHg Diastolic Blood Pressure Non-Invasive 70 mmHg mmHg 01/05/2025 14:35 EDT Temperature (Route Not Specified) 36.06 DegC DegC Heart Rate Monitored 76 bpm bpm Respiratory Rate - Anes 11 br/min br/min Systolic Blood Pressure Non-Invasive 94 mmHg mmHg Diastolic Blood Pressure Non-Invasive 71 mmHg mmHg 01/05/2025 14:32 EDT Systolic Blood Pressure Non-Invasive 94 mmHg mmHg Diastolic Blood Pressure Non-Invasive 81 mmHg mmHg 01/05/2025 14:30 EDT Temperature (Route Not Specified) 36.02 DegC DegC Heart Rate Monitored 76 bpm bpm Respiratory Rate - Anes 10 br/min br/min 01/05/2025 14:29 EDT Systolic Blood Pressure Non-Invasive 99 mmHg mmHg Diastolic Blood Pressure Non-Invasive 75 mmHg mmHg 01/05/2025 14:26 EDT Systolic Blood Pressure Non-Invasive 102 mmHg mmHg Diastolic Blood Pressure Non-Invasive 85 mmHg mmHg 01/05/2025 14:25 EDT Temperature (Route Not Specified) 35.99 DegC DegC Heart Rate Monitored 77 bpm bpm Respiratory Rate - Anes 12 br/min br/min 01/05/2025 14:23 EDT Systolic Blood Pressure Non-Invasive 97 mmHg mmHg Diastolic Blood Pressure Non-Invasive 80 mmHg mmHg 01/05/2025 14:20 EDT Temperature (Route Not Specified) 35.97 DegC DegC Heart Rate Monitored 73 bpm bpm Respiratory Rate - Anes 10 br/min br/min Systolic Blood Pressure Non-Invasive 86 mmHg mmHg Diastolic Blood Pressure Non-Invasive 66 mmHg mmHg 01/05/2025 14:16 EDT Systolic Blood Pressure Non-Invasive 104 mmHg mmHg Diastolic Blood Pressure Non-Invasive 60 mmHg mmHg 01/05/2025 14:15 EDT Temperature (Route Not Specified) 35.98 DegC DegC Heart Rate Monitored 70 bpm bpm Respiratory Rate - Anes 10 br/min br/min 01/05/2025 14:11 EDT Systolic Blood Pressure Non-Invasive 121 mmHg mmHg Diastolic Blood Pressure Non-Invasive 94 mmHg mmHg 01/05/2025 14:10 EDT Temperature (Route Not Specified) 35.97 DegC DegC Heart Rate Monitored 87 bpm bpm Respiratory Rate - Anes 10 br/min br/min 01/05/2025 14:08 EDT Systolic Blood Pressure Non-Invasive 104 mmHg mmHg Diastolic Blood Pressure Non-Invasive 80 mmHg mmHg 01/05/2025 14:06 EDT Systolic Blood Pressure Non-Invasive 118 mmHg mmHg Diastolic Blood Pressure Non-Invasive 69 mmHg mmHg 01/05/2025 14:05 EDT Temperature (Route Not Specified) 35.98 DegC DegC Heart Rate Monitored 85 bpm bpm Respiratory Rate - Anes 9 br/min br/min 01/05/2025 14:02 EDT Systolic Blood Pressure Non-Invasive 102 mmHg mmHg Diastolic Blood Pressure Non-Invasive 76 mmHg mmHg 01/05/2025 14:00 EDT Temperature (Route Not Specified) 35.95 DegC DegC Heart Rate Monitored 85 bpm bpm Respiratory Rate - Anes 10 br/min br/min Systolic Blood Pressure Non-Invasive 92 mmHg mmHg Diastolic Blood Pressure Non-Invasive 71 mmHg mmHg 01/05/2025 13:56 EDT Systolic Blood Pressure Non-Invasive 93 mmHg mmHg Diastolic Blood Pressure Non-Invasive 81 mmHg mmHg 01/05/2025 13:55 EDT Temperature (Route Not Specified) 35.94 DegC DegC Heart Rate Monitored 85 bpm bpm Respiratory Rate - Anes 10 br/min br/min 01/05/2025 13:53 EDT Systolic Blood Pressure Non-Invasive 95 mmHg mmHg Diastolic Blood Pressure Non-Invasive 79 mmHg mmHg 01/05/2025 13:51 EDT Systolic Blood Pressure Non-Invasive 106 mmHg mmHg Diastolic Blood Pressure Non-Invasive 71 mmHg mmHg 01/05/2025 13:50 EDT Temperature (Route Not Specified) 35.91 DegC DegC Heart Rate Monitored 85 bpm bpm Respiratory Rate - Anes 10 br/min br/min 01/05/2025 13:47 EDT Systolic Blood Pressure Non-Invasive 115 mmHg mmHg Diastolic Blood Pressure Non-Invasive 77 mmHg mmHg 01/05/2025 13:45 EDT Temperature (Route Not Specified) 35.89 DegC DegC Heart Rate Monitored 85 bpm bpm Respiratory Rate - Anes 10 br/min br/min 01/05/2025 13:44 EDT Systolic Blood Pressure Non-Invasive 91 mmHg mmHg Diastolic Blood Pressure Non-Invasive 57 mmHg mmHg 01/05/2025 13:41 EDT Systolic Blood Pressure Non-Invasive 93 mmHg mmHg Diastolic Blood Pressure Non-Invasive 62 mmHg mmHg 01/05/2025 13:40 EDT Temperature (Route Not Specified) 35.87 DegC DegC Heart Rate Monitored 84 bpm bpm Respiratory Rate - Anes 10 br/min br/min 01/05/2025 13:38 EDT Systolic Blood Pressure Non-Invasive 102 mmHg mmHg Diastolic Blood Pressure Non-Invasive 77 mmHg mmHg 01/05/2025 13:35 EDT Temperature (Route Not Specified) 35.86 DegC DegC Heart Rate Monitored 81 bpm bpm Respiratory Rate - Anes 10 br/min br/min Systolic Blood Pressure Non-Invasive 102 mmHg mmHg Diastolic Blood Pressure Non-Invasive 81 mmHg mmHg 01/05/2025 13:32 EDT Systolic Blood Pressure Non-Invasive 105 mmHg mmHg Diastolic Blood Pressure Non-Invasive 75 mmHg mmHg 01/05/2025 13:30 EDT Temperature (Route Not Specified) 35.84 DegC DegC Heart Rate Monitored 79 bpm bpm Respiratory Rate - Anes 10 br/min br/min 01/05/2025 13:28 EDT Systolic Blood Pressure Non-Invasive 100 mmHg mmHg Diastolic Blood Pressure Non-Invasive 85 mmHg mmHg 01/05/2025 13:25 EDT Temperature (Route Not Specified) 35.83 DegC DegC Heart Rate Monitored 79 bpm bpm Respiratory Rate - Anes 10 br/min br/min 01/05/2025 13:24 EDT Systolic Blood Pressure Non-Invasive 114 mmHg mmHg Diastolic Blood Pressure Non-Invasive 91 mmHg mmHg 01/05/2025 13:22 EDT Systolic Blood Pressure Non-Invasive 111 mmHg mmHg Diastolic Blood Pressure Non-Invasive 52 mmHg mmHg 01/05/2025 13:20 EDT Temperature (Route Not Specified) 35.81 DegC DegC Heart Rate Monitored 79 bpm bpm Respiratory Rate - Anes 10 br/min br/min Systolic Blood Pressure Non-Invasive 97 mmHg mmHg Diastolic Blood Pressure Non-Invasive 76 mmHg mmHg 01/05/2025 13:18 EDT Systolic Blood Pressure Non-Invasive 95 mmHg mmHg (Modified) Diastolic Blood Pressure Non-Invasive 79 mmHg mmHg (Modified) 01/05/2025 13:15 EDT Temperature (Route Not Specified) 35.8 DegC DegC Heart Rate Monitored 78 bpm bpm Respiratory Rate - Anes 10 br/min br/min Systolic Blood Pressure Non-Invasive 103 mmHg mmHg Diastolic Blood Pressure Non-Invasive 85 mmHg mmHg 01/05/2025 13:12 EDT Systolic Blood Pressure Non-Invasive 114 mmHg mmHg Diastolic Blood Pressure Non-Invasive 76 mmHg mmHg 01/05/2025 13:10 EDT Temperature (Route Not Specified) 35.78 DegC DegC Heart Rate Monitored 77 bpm bpm Respiratory Rate - Anes 10 br/min br/min Systolic Blood Pressure Non-Invasive 118 mmHg mmHg Diastolic Blood Pressure Non-Invasive 80 mmHg mmHg 01/05/2025 13:06 EDT Systolic Blood Pressure Non-Invasive 106 mmHg mmHg Diastolic Blood Pressure Non-Invasive 91 mmHg mmHg 01/05/2025 13:05 EDT Temperature (Route Not Specified) 35.76 DegC DegC Heart Rate Monitored 78 bpm bpm Respiratory Rate - Anes 10 br/min br/min 01/05/2025 13:03 EDT Systolic Blood Pressure Non-Invasive 113 mmHg mmHg Diastolic Blood Pressure Non-Invasive 84 mmHg mmHg 01/05/2025 13:00 EDT Temperature (Route Not Specified) 35.74 DegC DegC Heart Rate Monitored 77 bpm bpm Respiratory Rate - Anes 10 br/min br/min Systolic Blood Pressure Non-Invasive 117 mmHg mmHg Diastolic Blood Pressure Non-Invasive 90 mmHg mmHg 01/05/2025 12:57 EDT Systolic Blood Pressure Non-Invasive 115 mmHg mmHg Diastolic Blood Pressure Non-Invasive 88 mmHg mmHg 01/05/2025 12:55 EDT Temperature (Route Not Specified) 35.71 DegC DegC Heart Rate Monitored 75 bpm bpm Respiratory Rate - Anes 10 br/min br/min 01/05/2025 12:54 EDT Systolic Blood Pressure Non-Invasive 100 mmHg mmHg Diastolic Blood Pressure Non-Invasive 81 mmHg mmHg 01/05/2025 12:51 EDT Systolic Blood Pressure Non-Invasive 98 mmHg mmHg Diastolic Blood Pressure Non-Invasive 88 mmHg mmHg 01/05/2025 12:50 EDT Temperature (Route Not Specified) 35.7 DegC DegC Heart Rate Monitored 76 bpm bpm Respiratory Rate - Anes 10 br/min br/min 01/05/2025 12:48 EDT Systolic Blood Pressure Non-Invasive 127 mmHg mmHg Diastolic Blood Pressure Non-Invasive 68 mmHg mmHg 01/05/2025 12:45 EDT Temperature (Route Not Specified) 35.68 DegC DegC Heart Rate Monitored 73 bpm bpm Respiratory Rate - Anes 10 br/min br/min Systolic Blood Pressure Non-Invasive 102 mmHg mmHg Diastolic Blood Pressure Non-Invasive 86 mmHg mmHg 01/05/2025 12:41 EDT Systolic Blood Pressure Non-Invasive 103 mmHg mmHg Diastolic Blood Pressure Non-Invasive 87 mmHg mmHg 01/05/2025 12:40 EDT Temperature (Route Not Specified) 35.68 DegC DegC Heart Rate Monitored 72 bpm bpm Respiratory Rate - Anes 10 br/min br/min 01/05/2025 12:38 EDT Systolic Blood Pressure Non-Invasive 109 mmHg mmHg Diastolic Blood Pressure Non-Invasive 84 mmHg mmHg 01/05/2025 12:35 EDT Temperature (Route Not Specified) 35.67 DegC DegC Heart Rate Monitored 71 bpm bpm Respiratory Rate - Anes 10 br/min br/min Systolic Blood Pressure Non-Invasive 103 mmHg mmHg Diastolic Blood Pressure Non-Invasive 77 mmHg mmHg 01/05/2025 12:33 EDT Systolic Blood Pressure Non-Invasive 108 mmHg mmHg Diastolic Blood Pressure Non-Invasive 80 mmHg mmHg 01/05/2025 12:30 EDT Temperature (Route Not Specified) 35.66 DegC DegC Heart Rate Monitored 72 bpm bpm Respiratory Rate - Anes 10 br/min br/min 01/05/2025 12:29 EDT Systolic Blood Pressure Non-Invasive 110 mmHg mmHg Diastolic Blood Pressure Non-Invasive 89 mmHg mmHg 01/05/2025 12:26 EDT Systolic Blood Pressure Non-Invasive 100 mmHg mmHg Diastolic Blood Pressure Non-Invasive 83 mmHg mmHg 01/05/2025 12:25 EDT Temperature (Route Not Specified) 35.65 DegC DegC Heart Rate Monitored 71 bpm bpm Respiratory Rate - Anes 10 br/min br/min 01/05/2025 12:23 EDT Systolic Blood Pressure Non-Invasive 102 mmHg mmHg Diastolic Blood Pressure Non-Invasive 88 mmHg mmHg 01/05/2025 12:20 EDT Temperature (Route Not Specified) 35.65 DegC DegC Heart Rate Monitored 71 bpm bpm Respiratory Rate - Anes 10 br/min br/min Systolic Blood Pressure Non-Invasive 101 mmHg mmHg Diastolic Blood Pressure Non-Invasive 84 mmHg mmHg 01/05/2025 12:17 EDT Systolic Blood Pressure Non-Invasive 110 mmHg mmHg Diastolic Blood Pressure Non-Invasive 87 mmHg mmHg 01/05/2025 12:15 EDT Temperature (Route Not Specified) 35.64 DegC DegC Heart Rate Monitored 72 bpm bpm Respiratory Rate - Anes 10 br/min br/min 01/05/2025 12:14 EDT Systolic Blood Pressure Non-Invasive 110 mmHg mmHg Diastolic Blood Pressure Non-Invasive 82 mmHg mmHg 01/05/2025 12:11 EDT Systolic Blood Pressure Non-Invasive 119 mmHg mmHg Diastolic Blood Pressure Non-Invasive 88 mmHg mmHg 01/05/2025 12:10 EDT Temperature (Route Not Specified) 35.63 DegC DegC Heart Rate Monitored 71 bpm bpm Respiratory Rate - Anes 10 br/min br/min 01/05/2025 12:07 EDT Systolic Blood Pressure Non-Invasive 124 mmHg mmHg Diastolic Blood Pressure Non-Invasive 78 mmHg mmHg 01/05/2025 12:05 EDT Temperature (Route Not Specified) 35.61 DegC DegC Heart Rate Monitored 70 bpm bpm Respiratory Rate - Anes 10 br/min br/min 01/05/2025 12:03 EDT Systolic Blood Pressure Non-Invasive 116 mmHg mmHg Diastolic Blood Pressure Non-Invasive 91 mmHg mmHg 01/05/2025 12:00 EDT Temperature (Route Not Specified) 35.61 DegC DegC Heart Rate Monitored 69 bpm bpm Respiratory Rate - Anes 10 br/min br/min Systolic Blood Pressure Non-Invasive 123 mmHg mmHg Diastolic Blood Pressure Non-Invasive 88 mmHg mmHg 01/05/2025 11:57 EDT Systolic Blood Pressure Non-Invasive 103 mmHg mmHg Diastolic Blood Pressure Non-Invasive 77 mmHg mmHg 01/05/2025 11:55 EDT Temperature (Route Not Specified) 35.6 DegC DegC Heart Rate Monitored 66 bpm bpm Respiratory Rate - Anes 10 br/min br/min 01/05/2025 11:54 EDT Systolic Blood Pressure Non-Invasive 107 mmHg mmHg Diastolic Blood Pressure Non-Invasive 89 mmHg mmHg 01/05/2025 11:51 EDT Systolic Blood Pressure Non-Invasive 124 mmHg mmHg (Modified) Diastolic Blood Pressure Non-Invasive 72 mmHg mmHg (Modified) 01/05/2025 11:50 EDT Temperature (Route Not Specified) 35.59 DegC DegC Heart Rate Monitored 66 bpm bpm Respiratory Rate - Anes 10 br/min br/min 01/05/2025 11:48 EDT Systolic Blood Pressure Non-Invasive 97 mmHg mmHg (Modified) Diastolic Blood Pressure Non-Invasive 70 mmHg mmHg 01/05/2025 11:45 EDT Temperature (Route Not Specified) 35.59 DegC DegC Heart Rate Monitored 65 bpm bpm Respiratory Rate - Anes 10 br/min br/min Systolic Blood Pressure Non-Invasive 98 mmHg mmHg (Modified) Diastolic Blood Pressure Non-Invasive 64 mmHg mmHg 01/05/2025 11:44 EDT Systolic Blood Pressure Non-Invasive 88 mmHg mmHg (In Error) Diastolic Blood Pressure Non-Invasive 64 mmHg mmHg (In Error) 01/05/2025 11:42 EDT Systolic Blood Pressure Non-Invasive 128 mmHg mmHg Diastolic Blood Pressure Non-Invasive 91 mmHg mmHg 01/05/2025 11:40 EDT Temperature (Route Not Specified) 35.58 DegC DegC Heart Rate Monitored 64 bpm bpm Respiratory Rate - Anes 10 br/min br/min 01/05/2025 11:38 EDT Systolic Blood Pressure Non-Invasive 93 mmHg mmHg Diastolic Blood Pressure Non-Invasive 72 mmHg mmHg 01/05/2025 11:36 EDT Systolic Blood Pressure Non-Invasive 91 mmHg mmHg Diastolic Blood Pressure Non-Invasive 59 mmHg mmHg 01/05/2025 11:35 EDT Temperature (Route Not Specified) 35.58 DegC DegC Heart Rate Monitored 64 bpm bpm Respiratory Rate - Anes 10 br/min br/min 01/05/2025 11:33 EDT Systolic Blood Pressure Non-Invasive 124 mmHg mmHg (Modified) Diastolic Blood Pressure Non-Invasive 87 mmHg mmHg (Modified) 01/05/2025 11:31 EDT Systolic Blood Pressure Non-Invasive 144 mmHg mmHg (In Error) Diastolic Blood Pressure Non-Invasive 117 mmHg mmHg (In Error) 01/05/2025 11:30 EDT Temperature (Route Not Specified) 35.57 DegC DegC Heart Rate Monitored 66 bpm bpm Respiratory Rate - Anes 10 br/min br/min 01/05/2025 11:29 EDT Systolic Blood Pressure Non-Invasive 136 mmHg mmHg (Modified) Diastolic Blood Pressure Non-Invasive 97 mmHg mmHg (Modified) 01/05/2025 11:27 EDT Systolic Blood Pressure Non-Invasive 112 mmHg mmHg Diastolic Blood Pressure Non-Invasive 91 mmHg mmHg 01/05/2025 11:25 EDT Temperature (Route Not Specified) 35.58 DegC DegC Heart Rate Monitored 65 bpm bpm Respiratory Rate - Anes 10 br/min br/min 01/05/2025 11:23 EDT Systolic Blood Pressure Non-Invasive 141 mmHg mmHg Diastolic Blood Pressure Non-Invasive 91 mmHg mmHg (Modified) 01/05/2025 11:20 EDT Temperature (Route Not Specified) 35.58 DegC DegC Heart Rate Monitored 70 bpm bpm Respiratory Rate - Anes 10 br/min br/min Systolic Blood Pressure Non-Invasive 131 mmHg mmHg Diastolic Blood Pressure Non-Invasive 82 mmHg mmHg 01/05/2025 11:16 EDT Systolic Blood Pressure Non-Invasive 103 mmHg mmHg Diastolic Blood Pressure Non-Invasive 59 mmHg mmHg 01/05/2025 11:15 EDT Temperature (Route Not Specified) 35.59 DegC DegC Heart Rate Monitored 79 bpm bpm Respiratory Rate - Anes 10 br/min br/min 01/05/2025 11:13 EDT Systolic Blood Pressure Non-Invasive 89 mmHg mmHg Diastolic Blood Pressure Non-Invasive 75 mmHg mmHg 01/05/2025 11:11 EDT Systolic Blood Pressure Non-Invasive 116 mmHg mmHg Diastolic Blood Pressure Non-Invasive 90 mmHg mmHg 01/05/2025 11:10 EDT Temperature (Route Not Specified) 35.59 DegC DegC Heart Rate Monitored 61 bpm bpm Respiratory Rate - Anes 10 br/min br/min Systolic Blood Pressure Non-Invasive 147 mmHg mmHg Diastolic Blood Pressure Non-Invasive 131 mmHg mmHg 01/05/2025 11:07 EDT Systolic Blood Pressure Non-Invasive 129 mmHg mmHg Diastolic Blood Pressure Non-Invasive 100 mmHg mmHg 01/05/2025 11:05 EDT Temperature (Route Not Specified) 35.6 DegC DegC Respiratory Rate - Anes 10 br/min br/min Systolic Blood Pressure Non-Invasive 127 mmHg mmHg Diastolic Blood Pressure Non-Invasive 92 mmHg mmHg 01/05/2025 11:01 EDT Systolic Blood Pressure Non-Invasive 127 mmHg mmHg Diastolic Blood Pressure Non-Invasive 82 mmHg mmHg 01/05/2025 11:00 EDT Temperature (Route Not Specified) 35.59 DegC DegC Heart Rate Monitored 59 bpm bpm Respiratory Rate - Anes 10 br/min br/min 01/05/2025 10:59 EDT Systolic Blood Pressure Non-Invasive 124 mmHg mmHg Diastolic Blood Pressure Non-Invasive 92 mmHg mmHg 01/05/2025 10:55 EDT Temperature (Route Not Specified) 35.58 DegC DegC Heart Rate Monitored 59 bpm bpm Respiratory Rate - Anes 10 br/min br/min Systolic Blood Pressure Non-Invasive 126 mmHg mmHg Diastolic Blood Pressure Non-Invasive 110 mmHg mmHg 01/05/2025 10:52 EDT Systolic Blood Pressure Non-Invasive 113 mmHg mmHg Diastolic Blood Pressure Non-Invasive 87 mmHg mmHg 01/05/2025 10:50 EDT Temperature (Route Not Specified) 35.55 DegC DegC Heart Rate Monitored 61 bpm bpm Respiratory Rate - Anes 10 br/min br/min Systolic Blood Pressure Non-Invasive 118 mmHg mmHg Diastolic Blood Pressure Non-Invasive 89 mmHg mmHg 01/05/2025 10:46 EDT Systolic Blood Pressure Non-Invasive 106 mmHg mmHg Diastolic Blood Pressure Non-Invasive 70 mmHg mmHg 01/05/2025 10:45 EDT Temperature (Route Not Specified) 35.51 DegC DegC Heart Rate Monitored 62 bpm bpm Respiratory Rate - Anes 10 br/min br/min 01/05/2025 10:43 EDT Systolic Blood Pressure Non-Invasive 98 mmHg mmHg Diastolic Blood Pressure Non-Invasive 84 mmHg mmHg 01/05/2025 10:40 EDT Temperature (Route Not Specified) 35.46 DegC DegC Heart Rate Monitored 63 bpm bpm Respiratory Rate - Anes 10 br/min br/min Systolic Blood Pressure Non-Invasive 110 mmHg mmHg Diastolic Blood Pressure Non-Invasive 80 mmHg mmHg 01/05/2025 10:37 EDT Systolic Blood Pressure Non-Invasive 108 mmHg mmHg Diastolic Blood Pressure Non-Invasive 85 mmHg mmHg 01/05/2025 10:35 EDT Temperature (Route Not Specified) 35.42 DegC DegC Heart Rate Monitored 69 bpm bpm Respiratory Rate - Anes 10 br/min br/min 01/05/2025 10:33 EDT Systolic Blood Pressure Non-Invasive 114 mmHg mmHg Diastolic Blood Pressure Non-Invasive 92 mmHg mmHg 01/05/2025 10:30 EDT Temperature (Route Not Specified) 35.43 DegC DegC Heart Rate Monitored 75 bpm bpm Respiratory Rate - Anes 10 br/min br/min Systolic Blood Pressure Non-Invasive 74 mmHg mmHg Diastolic Blood Pressure Non-Invasive 59 mmHg mmHg 01/05/2025 10:28 EDT Systolic Blood Pressure Non-Invasive 93 mmHg mmHg Diastolic Blood Pressure Non-Invasive 65 mmHg mmHg 01/05/2025 10:25 EDT Heart Rate Monitored 76 bpm bpm Respiratory Rate - Anes 10 br/min br/min Systolic Blood Pressure Non-Invasive 101 mmHg mmHg Diastolic Blood Pressure Non-Invasive 77 mmHg mmHg 01/05/2025 10:24 EDT Heart Rate Monitored 74 bpm bpm 01/05/2025 10:23 EDT Heart Rate Monitored 80 bpm bpm 01/05/2025 10:22 EDT Heart Rate Monitored 79 bpm bpm Systolic Blood Pressure Non-Invasive 86 mmHg mmHg Diastolic Blood Pressure Non-Invasive 64 mmHg mmHg 01/05/2025 10:21 EDT Heart Rate Monitored 77 bpm bpm 01/05/2025 10:20 EDT Heart Rate Monitored 75 bpm bpm Respiratory Rate - Anes 10 br/min br/min Systolic Blood Pressure Non-Invasive 201 mmHg mmHg (In Error) Diastolic Blood Pressure Non-Invasive 82 mmHg mmHg (In Error) 01/05/2025 10:19 EDT Systolic Blood Pressure Non-Invasive 115 mmHg mmHg Diastolic Blood Pressure Non-Invasive 82 mmHg mmHg 01/05/2025 10:16 EDT Systolic Blood Pressure Non-Invasive 100 mmHg mmHg Diastolic Blood Pressure Non-Invasive 79 mmHg mmHg 01/05/2025 10:15 EDT Heart Rate Monitored 81 bpm bpm Respiratory Rate - Anes 10 br/min br/min 01/05/2025 10:13 EDT Systolic Blood Pressure Non-Invasive 94 mmHg mmHg Diastolic Blood Pressure Non-Invasive 68 mmHg mmHg 01/05/2025 10:10 EDT Heart Rate Monitored 84 bpm bpm Respiratory Rate - Anes 10 br/min br/min Systolic Blood Pressure Non-Invasive 146 mmHg mmHg Diastolic Blood Pressure Non-Invasive 86 mmHg mmHg 01/05/2025 10:09 EDT Heart Rate Monitored 82 bpm bpm 01/05/2025 10:08 EDT Heart Rate Monitored 77 bpm bpm 01/05/2025 10:07 EDT Heart Rate Monitored 80 bpm bpm Systolic Blood Pressure Non-Invasive 133 mmHg mmHg Diastolic Blood Pressure Non-Invasive 86 mmHg mmHg 01/05/2025 10:06 EDT Heart Rate Monitored 88 bpm bpm 01/05/2025 10:05 EDT Heart Rate Monitored 99 bpm bpm Respiratory Rate - Anes 10 br/min br/min 01/05/2025 10:04 EDT Systolic Blood Pressure Non-Invasive 113 mmHg mmHg Diastolic Blood Pressure Non-Invasive 84 mmHg mmHg 01/05/2025 10:03 EDT Systolic Blood Pressure Non-Invasive 121 mmHg mmHg Diastolic Blood Pressure Non-Invasive 97 mmHg mmHg 01/05/2025 10:00 EDT Heart Rate Monitored 71 bpm bpm Respiratory Rate - Anes 0 br/min br/min 01/05/2025 9:58 EDT Systolic Blood Pressure Non-Invasive 113 mmHg mmHg Diastolic Blood Pressure Non-Invasive 85 mmHg mmHg 01/05/2025 9:56 EDT Systolic Blood Pressure Non-Invasive 118 mmHg mmHg Diastolic Blood Pressure Non-Invasive 78 mmHg mmHg 01/05/2025 9:55 EDT Heart Rate Monitored 84 bpm bpm Respiratory Rate - Anes 0 br/min br/min 01/05/2025 8:25 EDT Temperature Temporal Artery 36.2 DegC Apical Heart Rate 78 bpm Respiratory Rate 18 br/min Systolic Blood Pressure Non-Invasive 130 mmHg Diastolic Blood Pressure Non-Invasive 93 mmHg HI , Oxygen Therapy : Oxygen Therapy & Oxygenation Information 01/05/2025 15:39 EDT Oxygen Therapy Nasal cannula 0L-6L Oxygen Saturation 94 % Oxygen Flow Rate 2 L/min 01/05/2025 15:27 EDT Oxygen Therapy Nasal cannula 0L-6L Oxygen Saturation 97 % Oxygen Flow Rate 2 L/min 01/05/2025 15:24 EDT Oxygen Therapy Simple mask Oxygen Saturation 99 % Oxygen Flow Rate 10 L/min 01/05/2025 15:09 EDT Oxygen Therapy Simple mask Oxygen Saturation 100 % Oxygen Flow Rate 10 L/min 01/05/2025 15:05 EDT Oxygen Saturation 100 % % 01/05/2025 15:00 EDT Oxygen Saturation 100 % % 01/05/2025 14:55 EDT Oxygen Saturation 100 % % 01/05/2025 14:50 EDT Oxygen Saturation 100 % % 01/05/2025 14:45 EDT Oxygen Saturation 99 % % 01/05/2025 14:40 EDT Oxygen Saturation 95 % % 01/05/2025 14:35 EDT Oxygen Saturation 93 % % 01/05/2025 14:30 EDT Oxygen Saturation 94 % % 01/05/2025 14:25 EDT Oxygen Saturation 94 % % 01/05/2025 14:20 EDT Oxygen Saturation 95 % % 01/05/2025 14:15 EDT Oxygen Saturation 94 % % 01/05/2025 14:10 EDT Oxygen Saturation 97 % % 01/05/2025 14:05 EDT Oxygen Saturation 100 % % 01/05/2025 14:00 EDT Oxygen Saturation 100 % % 01/05/2025 13:55 EDT Oxygen Saturation 99 % % 01/05/2025 13:50 EDT Oxygen Saturation 100 % % 01/05/2025 13:45 EDT Oxygen Saturation 99 % % 01/05/2025 13:40 EDT Oxygen Saturation 100 % % 01/05/2025 13:35 EDT Oxygen Saturation 100 % % 01/05/2025 13:30 EDT Oxygen Saturation 99 % % 01/05/2025 13:25 EDT Oxygen Saturation 100 % % 01/05/2025 13:20 EDT Oxygen Saturation 100 % % 01/05/2025 13:15 EDT Oxygen Saturation 99 % % 01/05/2025 13:10 EDT Oxygen Saturation 99 % % 01/05/2025 13:05 EDT Oxygen Saturation 100 % % 01/05/2025 13:00 EDT Oxygen Saturation 100 % % 01/05/2025 12:55 EDT Oxygen Saturation 100 % % 01/05/2025 12:50 EDT Oxygen Saturation 99 % % 01/05/2025 12:45 EDT Oxygen Saturation 99 % % 01/05/2025 12:40 EDT Oxygen Saturation 100 % % 01/05/2025 12:35 EDT Oxygen Saturation 99 % % 01/05/2025 12:30 EDT Oxygen Saturation 100 % % 01/05/2025 12:25 EDT Oxygen Saturation 100 % % 01/05/2025 12:20 EDT Oxygen Saturation 100 % % 01/05/2025 12:15 EDT Oxygen Saturation 100 % % 01/05/2025 12:10 EDT Oxygen Saturation 100 % % 01/05/2025 12:05 EDT Oxygen Saturation 100 % % 01/05/2025 12:00 EDT Oxygen Saturation 100 % % 01/05/2025 11:55 EDT Oxygen Saturation 100 % % 01/05/2025 11:50 EDT Oxygen Saturation 99 % % 01/05/2025 11:45 EDT Oxygen Saturation 98 % % 01/05/2025 11:40 EDT Oxygen Saturation 100 % % 01/05/2025 11:35 EDT Oxygen Saturation 100 % % 01/05/2025 11:30 EDT Oxygen Saturation 100 % % 01/05/2025 11:25 EDT Oxygen Saturation 100 % % 01/05/2025 11:20 EDT Oxygen Saturation 100 % % 01/05/2025 11:15 EDT Oxygen Saturation 100 % % 01/05/2025 11:10 EDT Oxygen Saturation 100 % % 01/05/2025 11:05 EDT Oxygen Saturation 100 % % 01/05/2025 11:00 EDT Oxygen Saturation 100 % % 01/05/2025 10:55 EDT Oxygen Saturation 100 % % 01/05/2025 10:50 EDT Oxygen Saturation 100 % % 01/05/2025 10:45 EDT Oxygen Saturation 100 % % 01/05/2025 10:40 EDT Oxygen Saturation 100 % % 01/05/2025 10:35 EDT Oxygen Saturation 100 % % 01/05/2025 10:30 EDT Oxygen Saturation 100 % % 01/05/2025 10:25 EDT Oxygen Saturation 100 % % 01/05/2025 10:24 EDT Oxygen Saturation 100 % % 01/05/2025 10:20 EDT Oxygen Saturation 100 % % 01/05/2025 10:15 EDT Oxygen Saturation 100 % % 01/05/2025 10:10 EDT Oxygen Saturation 100 % % 01/05/2025 10:05 EDT Oxygen Saturation 100 % % 01/05/2025 10:00 EDT Oxygen Saturation 100 % % 01/05/2025 9:55 EDT Oxygen Saturation 92 % % 01/05/2025 8:25 EDT Oxygen Therapy Room air Oxygen Saturation 94 % . Mental status: at preoperative baseline. Respiratory function: respirations are non-labored, Stable. Respiratory support: none. CV function: Stable. Cardiovascular support: none. Pain: Satisfactory. Nausea status: Satisfactory. Postoperative hydration status: within normal limits. Notes: Patient is sufficiently recovered from anesthesia to participate in the evaluation. No follow-up care needed. No complications post-anesthesia.. Digitally Signed by BARRIE TAYLOR DO on 01/05/2025 04:09 PM [id number]* Exam Date Time Procedure Performing Provider Status 01/05/25 3:03 PM XR Fluoro 2 Hrs Tech Time KIARRA DURANT DO; Auth (Verified) [id number] ORIGINAL EXAMINATION: SPOT FLUOROSCOPIC IMAGES 01/05/2025 3:03 pm TECHNIQUE: Fluoroscopy was provided by the radiology department for procedure. Radiologist was not present during examination. FLUOROSCOPY DOSE AND TYPE: Radiation Exposure Index: Kerma mGy, 27.87 mGy COMPARISON: MRI cervical spine 10/06/2024 HISTORY: ORDERING SYSTEM PROVIDED HISTORY: Reason for Exam: NECK PAIN Intraprocedural imaging. FINDINGS: Spot intraoperative images are obtained demonstrating intraoperative intervention in the upper cervical spine.. IMPRESSION: Intraprocedural fluoroscopic spot images as above. See separate procedure report for more information. Interpreted by: Frederick Durant DO Preliminary Report By: Frederick Durant DO Electronically signed By Frederick Durant DO Dictated Date: 01/05/2025 3:25:15 PM Prelim Date: 01/05/2025 3:28:58 PM Sign Date: 01/05/2025 3:28:58 PM Ordering Provider: MANDO FISCHER [id number] History and physical note Date of Service January 05, 2025 History and Physical Update I have examined the patient; reviewed the History and Physical and there are no changes to the History and Physical unless noted below. Digitally Signed by MANDO FISCHER DO on 01/05/2025 08:59 AM [id number] Anesthesiology Consult note Patient: SARTHAK PUTNAM JR Age: 69 years Sex: Male : 1955 Associated Diagnoses: None Author: PEDRO LUIS PADILLA MD Preoperative Information NPO > 8 hrs Anesthesia history Patient's history: negative. Family's history: negative. History of Present Illness 69-year-old male with a past medical history of cervical spinal stenosis with myelopathy, coronary artery disease [(inferior wall STEMI s/p PTCA and stents x6 RCA 02/05/2024), (CA s/p PCI & stent x1 RCA 2008)], TIA (10/2023), GERD (asymptomatic with pantoprazole), COPD, hypercholesterolemia, Myelomalacia of cervical cord, Congenital fusion of cervical spine, anxiety, arthritis, dependence on supplemental oxygen at 3 L at bedtime, former tobacco smoker (quit smoking a year ago), pulmonary nodule, hearing loss, who presents for laminectomy cervical 3 7, posterior fusion cervical 3-7 with internal fixation. He denies personal or known family history of complications anesthesia. He denies history of difficult intubation. Patient had inferior wall STEMI in January 2024, he underwent PTCA a with placement of multiple stents.He is currently taking aspirin 81 mg and clopidogrel daily. Patient EKG at preop testing showed newonset atrial fibrillation with a rate of 105. He endorses chronic dyspnea with exertion. He denies chest pain, palpitations, syncope, or edema. He had an echocardiogram 02/05/2024 which demonstrated LVEF 60%, posterior basal and inferior basal hypokinesis. Patient's activity is significantly limiteddue to bilateral lower extremity weakness. He uses a cane or walker at home for ambulation. He underwent cardiac testing for clearance and had a negative stress test. He was cleared by cardiology forhis procedure and was told to hold both of his ASA and plavix. They plan on starting eliquis for his AFib after surgery. He denies recent COPD exacerbation or respiratory infection. He endorses chronic dyspnea with exertion at baseline. He uses 2 L supplemental oxygen at bedtime. He uses Trelegy daily. He does not use a rescue inhaler. He denies recent fever, chills, cough, congestion, nausea, or vomiting. He denies GERD symptoms. He. He endorses bilateral lower extremity weakness. He endorses bilateral upper extrem ity weakness, numbness and tingling patient denies a history of sleep apnea, STOP-BANG score is 4. Review of Systems Ear/Nose/Mouth/Throat: Negative except as documented in history of present illness. Respiratory: Negative except as documented in history of present illness. Cardiovascular: Negative except as documented in history of present illness. Gastrointestinal: Negative except as documented in history of present illness. Genitourinary: Negative except as documented in history of present illness. Endocrine: Negative except as documented in history of present illness. Musculoskeletal: Negative except as documented in history of present illness. Integumentary: Negative except as documented in history of present illness. Neurologic: Negative except as documented in history of present illness. Health Status Allergies: Allergic Reactions (Selected) NKA, Allergies (1) ActiveSeverityReaction NKANone Documented Current medications: (Selected) Inpatient Medications Ordered Kefzol: 2 gram(s), 20 mL, 240 mL/hr, IV Push (INT), PREOP pharm Prescriptions Prescribed Protonix 40 mg oral enteric coated tablet: 40 mg, 1 tab(s), Oral, qDayAC, 30 tab(s) mupirocin 2% topical ointment: 1 lino, Topical, BID, Bilateral intranasal application twice daily for 5 days prior to surgery &/or as many days leading up to surgery as possible due to surgical urgency/scheduling. Send to patient's preferred pharmacy., 22 gram(s), 0 Refill(s) Documented Medications Documented Oxygen: 2 liters, Nasal, qHS, 0 Refill(s) Trelegy Ellipta 200 mcg-62.5 mcg-25 mcg/inh inhalation powder: 1 inh, Inhalation, 12 (noon), 0 Refill(s) aspirin 81 mg oral delayed release tablet: 81 mg, 1 tab(s), Oral, qAM, Last Dose 12/28/24, 0 Refill(s) atorvastatin 80 mg oral tablet: 80 mg, 1 tab(s), Oral, qAM, 100 tab(s), 0 Refill(s) busPIRone 7.5 mg oral tablet: 7.5 mg, 1 tab(s), Oral, BID, 0 Refill(s) clopidogrel 75 mg oral tablet: 75 mg, 1 tab(s), Oral, qAM, Last Dose 12/25/24, 0 Refill(s) mirtazapine 30 mg oral tablet: 30 mg, 1 tab(s), Oral, qHS, 0 Refill(s), Medications (1) Active Scheduled: (1) ceFAZolin syringe 2 gram(s) 20 mL, IV Push (INT), PREOP pharm Continuous: (0) PRN: (0) Problem list: Medical New onset atrial fibrillation / SNOMED CT 68227516 / Confirmed Cervical spondylosis with myelopathy / SNOMED CT 3058879986 / Confirmed Congenital fusion of cervical spine / SNOMED CT 10990816 / Confirmed Disc displacement, lumbar / SNOMED CT 6944246469 / Confirmed Orthopedic aftercare / SNOMED CT 290877118 / Confirmed Status post cervical arthrodesis / SNOMED CT 6835830285 / Confirmed CA (myocardial infarction) / SNOMED CT [id number] / Confirmed Myelomalacia of cervical cord / SNOMED CT 08852314 / Confirmed Myelopathy concurrent with and due to spinal stenosis of cervical region / SNOMED CT 8247239326 / Confirmed Spinal stenosis at L4-L5 level / SNOMED CT 83570587 / Confirmed Stented coronary artery / SNOMED CT [id number] / Confirmed Resolved: Chest pain / SNOMED CT 92414131 Canceled: Spondylosis of cervical spine / SNOMED CT 0900405363 Canceled: Neck pain / SNOMED CT 950687736, Active Problems (26) 2019 novel coronavirus disease (COVID-19) Acid reflux Anxiety Arthritis BMI 24.0-24.9, adult Cervical spondylosis with myelopathy Congenital fusion of cervical spine COPD - Chronic obstructive pulmonary disease Disc displacement, lumbar Dry skin Glasses Hard of hearing Hypercholesterolemia CA (myocardial infarction) Myelomalacia of cervical cord Myelopathy concurrent with and due to spinal stenosis of cervical region New onset atrial fibrillation On anticoagulant therapy On home oxygen therapy Orthopedic aftercare Presence of dental prosthetic device Spinal stenosis at L4-L5 level Status post cervical arthrodesis Stented coronary artery TIA (transient ischemic attack) Tinnitus Histories Past Medical History: Active New onset atrial fibrillation ([id number]): Onset on 12/22/2024 at 69 years. CA (myocardial infarction) ([id number]) Stented coronary artery ([id number]) Comments: 12/22/2024 EDT 8:24 EDT - MINI Cai x6 Resolved Chest pain (97012512): Onset on 04/24/2015 at 59 years. Resolved. Procedure history: Stent placement ([id number]) in the month of 01/2024 at 68 Years. Comments: 12/22/2024 8:21 MINI Garciaanna x6 Cardiac catheterization ([id number]) in the month of 01/2024 at 68 Years. Comments: 08/04/2024 9:21 Amy Deleon RN 5 stents placed Biopsy of lung ([id number]) in the month of 12/2023 at 68 Years. Cardiac catheterization ([id number]) in 2008 at 54 Years. Comments: 08/04/2024 9:25 Amy Deleon RN 1 stent placed 04/24/2015 7:46 MINI Monique 2010 Microdiscectomy ([id number]) in 1996 at 42 Years. Comments: 08/04/2024 9:24 Amy Deleon RN Lumbar region Cervical spinal fusion ([id number]). Social History: Social & Psychosocial Habits Alcohol 12/22/2024Risk Assessment: Denies Alcohol Use 12/22/2024 Use: Never Substance Abuse 12/22/2024Risk Assessment: Denies Substance Abuse 12/22/2024 Use: Never Tobacco 12/22/2024Risk Assessment: High Risk 12/22/2024 Tobacco Use: Former smoker, quit more Type: Cigarettes Started at age: 8 Years Stopped at age: 68 Years Home/Environment 12/22/2024 Living situation: Home/Independent Safe place to go: Yes Domestic Concerns None Lives In Single level home Current Home Treatments Oxygen therapy, walker Special Services and Community Resources None Marital Status of Patient if Patient Independent Adult: Sexual 12/22/2024Risk Assessment: No Risk Physical Examination No qualifying data available General: Alert and oriented, No acute distress. Airway: Normal temporomandibular joint mobility, Normal mouth, Normal neck range of motion. Mallampati classification: II (soft palate, fauces, uvula visible). Dentition Evaluation: No teeth. Respiratory: Lungs are clear to auscultation. Cardiovascular: Normal rate, Regular rhythm. Heart Sounds: Normal. Neurologic: Alert, Oriented, Bilateral UE and LE weakness and numbness/tingling. Review / Management Results review: Labs (Last four charted values) Plt 293(JAN 05) PT 11.0(JAN 05) INR 1.0(JAN 05) PTT 33.1(JAN 05) . Documentation reviewed: Current records. Assessment and Plan [place] [employer] (ASA) physical status classification: Class III. Anesthetic Preoperative Plan Premedication: intravenous. Anesthetic technique: General. Induction: intravenously. Maintenance airway: Oral endotracheal tube. Postoperative pain management: Per surgeon. Risks discussed: nausea, vomiting, sore throat, dental injury, hypotension, allergic reaction, serious complications. Informed consent: signed by family (signed by per patient request secondary to arm weakness). Digitally Signed by PEDRO LUIS PADILLA MD on 01/05/2025 08:59 AM [id number] Note History of Present Illness Sarthak presents today for cervical surgery. He is 19 weeks p/o ACDF C3-4, C6-7 08/18/24 performed byDr Fischer. Patient denies any injury/incident since last visit 10/22/24. He presents today for decompression C3-C7 with instrumented posterior fusion C3-C7. He continues to complain of numbness/tingling in bilateral hands and legs to the feet. He has bilateral leg weakness with left being worse. He is having difficulty swallowing and food tastes terrible. He said this is getting better. He has no pain. Patient is taking nothing for pain. He is taking Zofran for nausea. Physical Exam Vitals and Measurements No qualifying data available. Vitals and Measurements T: 36.7 C (Oral) HT: 175 cm WT: 72.5 kg BMI: 23.67 Primary Pain Intensity: 0 (11/04/24 09:21:00) Detailed Back/Spine Exam\ General: Well-developed, well-nourished, in no acute distress; alert and oriented x 3. Gait: Patient ambulates with a rollator. His gait is spastic. Upper and lower extremity strength testing is unchanged from previous office visit. Cervical spine x-rays performed in my office 11/04/2024 were reviewed. The AP view shows slight sidebending to the right. There is anterior plate fixation across C3-C4 and C6-C7. There is interbody fusion cages in satisfactory alignment and position. The C4-C5 and C5-C6 discs appear to be fused. Impression: Status post ACDF C3-C4 and C6-C7 with anterior plate fixation. [facility] of the cervical spine [facility] at [facility] 06, 2024 was reviewed today. Sagittal imaging shows postsurgical changes at C3-C4 and C6-C7 where there is anterior plate fixation. There appears to be a fusion at the C5- C6 level. The C4-C5 disc level is unremarkable. Axial imaging shows severe stenosis at C3-C4 with what appears to be posterior spinal cord impingement secondary to buckling of the ligamentum flavum posteriorly. The radiologist has stated there is no definite changes in the spinal cord.. To my eye there does appear to be some increased signal intensity posteriorly. At C6-C7 there is severe stenosis with changes of the spinal cord consistent with myelomalacia. Th e stenosis is the result of bony ridge and the posterior aspect of the disc space at C6-C7. There is also hyperintensity of the spinal cord at the C5-C6 level. There does not appear to be any canal stenosis at C4-C5 or C5-C6. Review of the MRI of the cervical spine performed November 12, 2023 at [facility] the areas of stenosis are unchanged. The hyperintensity of the spinal cord at C3-C4, C5-C6 and C6-C7 are unchanged. Impression: Status post ACDF C3-C4 and C6-C7 with persistent spinal stenosis, Unchanged myelomalacia of the spinal cord C3-C4, C5-C6, C6-C7. [1] Social History Smoking Status - 04/24/2015 Current every day smoker Alcohol - Denies Alcohol Use, 09/06/2018 Use: Never., 11/29/2023 Home/Environment Living situation: Home/Independent. Safe place to go: Yes. Domestic Concerns: None. Lives In: Single level home. Current Home Treatments Oxygen therapy, walker. Professional Skilled Services or Special Community Resources None. Marital Status: ., 12/22/2024 Sexual - No Risk, 09/06/2018 Substance Abuse - Denies Substance Abuse, 09/06/2018 Use: Never., 11/29/2023 Tobacco - High Risk, 09/06/2018 Nicotine Use: Former smoker, quit more than 30 days ago. Type: Cigarettes. Started at age: 8 Years.Stopped at age: 68 Years., 10/21/2024 Family History Cancer: Mother and Father. Diabetes mellitus: Mother. HTN - Hypertension: Mother. Heart attack: Sister. Heart disease: Mother, Father and Brother. Health Status Family Member(s) Assessment/Plan 1. Myelopathy concurrent with and due to spinal stenosis of cervical region We discussed symptoms and testing in detail. Explanation and reassurance were given to the patient.We discussed options and he would like to proceed with surgery. The surgery is a laminectomy at C3-C7 with posterior fusion posterior with fixation. We discussed the procedure, the potential risks, benefits and complications which include but are not limited to , bleeding, infection, neurologic injury, persistent pain and paralysis. We were unable to provide a blood pressure reading today, and his and son indicate that he hashad significant fluctuations in his blood pressure recently. 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 He will need to have his cardiac situation stabilized prior to considering any further surgery. Patient agrees with treatment plan. I made it very clear to him that I cannot give him any indication of whether his symptoms will resolve or not with the surgery. He must be prepared for no change due to the injury to the spinal cord as evidenced by myelomalacia. Patient understands this but states he feels he must try to do something. Orders: ceFAZolin(Kefzol), 2 gram(s)= 20 mL, IV Push (INT), PREOP pharm APTT, 01/05/25 5:00:00 EDT, URGENT (collect within 2 hrs), Blood, Once, Nurse Collect, Preferred Lab: Other lab service, Stop date 01/05/25 5:00:00 EDT Fibrinogen, 01/05/25 5:00:00 EDT, URGENT (collect within 2 hrs), Blood, Once, Nurse Collect, Preferred Lab: Other lab service, Stop date 01/05/25 5:00:00 EDT Platelet Count, 01/05/25 5:00:00 EDT, URGENT (collect within 2 hrs), Blood, Once, Nurse Collect, Preferred Lab: Other lab service, Stop date 01/05/25 5:00:00 EDT Prothrombin Time - Panel, 01/05/25 5:00:00 EDT, URGENT (collect within 2 hrs), Blood, Once, Nurse Collect, Preferred Lab: Other lab service, Stop date 01/05/25 5:00:00 EDT Portions of the record may have been created with voice recognition software. Occasional wrong-word or [id number] substitutions may have occurred due to the inherent limitations of voice recognition software. 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 New onset atrial fibrillation Orthopedic aftercare Spinal stenosis at L4-L5 level Status post cervical arthrodesis Stented coronary artery Historical Chest pain Procedure/Surgical History Cardiac catheterization: 01/2024 Biopsy of lun12/2023 Cardiac catheterization: 2008 Microdiscectomy: 1996 Cervical spinal fusion Allergies NKA Medications What How Much When Instructions Last Dose Changed aspirin (aspirin 81 mg oral delayed release tablet) 1 tab(s) by mouth Once a day (in the morning) Last Dose Changed clopidogrel (clopidogrel 75 mg oral tablet) 1 tab(s) by mouth Once a day (in the morning) Last Dose Changed mupirocin topical (mupirocin 2% topical ointment) 1 application Topical Two (2) times a day Bilateral intranasal application twice daily for 5 days prior to surgery &/ or as many days leading up to surgery as possible due to surgical urgency/ scheduling. Send to patient's preferred pharmacy. Unchanged atorvastatin (atorvastatin 80 mg oral tablet) 1 tab(s) by mouth Once a day (in the morning) Unchanged busPIRone (busPIRone 7.5 mg oral tablet) 1 tab(s) by mouth Two (2) times a day Unchanged fluticasone/ umeclidinium/ vilanterol (Trelegy Ellipta 200 mcg-62.5 mcg-25 mcg/ inh inhalation powder) 1 inh by inhalation Daily at 12 noon Unchanged mirtazapine (mirtazapine 30 mg oral tablet) 1 tab(s) by mouth Daily at bedtime Unchanged Misc Medication (Oxygen) 2 liters in the nose Daily at bedtime Unchanged pantoprazole (Protonix 40 mg oral enteric coated tablet) 1 tab(s) by mouth Once a day before a meal What When Comments Stop Taking ondansetron (ondansetron 4 mg oral tablet) [1] Specialty Office Visit Note; MANDO FISCHER DO 10/21/2024 10:34 EST Digitally Signed by MANDO FISCHER DO on 01/02/2025 02:18 PM [id number] Evaluation + Plan noteExtracted from: Title:Preop H&P Author:MANDO FISCHER DO Mason e:01/02/25 1. Myelopathy concurrent wit h and due to spinal stenosis of cervical region We discussed symptoms and testing in detail. Explanation and reassurance were given to the patient. We discussed options and he would like to proceed with surgery. The surgery is a laminectomy at C3-C7 with posterior fusion posterior with fixation. We discussed the procedure, the potential risks, benefits and complications which include but are not limited to , bleeding, infection, neurologic injury, persistent pain and paralysis. We were unable to provide a blood pressure reading today, and his and son indicate that he has had significant fluctuations in his blood pressure recently. 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 He will need to have his cardiac situation stabilized prior to considering any further surgery. Patient agrees with treatment plan. I made it very clear to him that I cannot give him any indication of whether his symptoms will resolve or not with the surgery. He must be prepared for no change due to the injury to the spinal cord as evidenced by myelomalacia. Patient understands this but states he feels he must try to do something. Orders: ceFAZolin(Kefzol), 2 gram(s)= 20 mL, IV Push (INT), PREOP pharm APTT, 01/05/25 5:00:00 EDT, URGENT (collect within 2 hrs), Blood, Once, Nurse Collect, Preferred Lab: Other lab service, Stop date 01/05/25 5:00:00 EDT Fibrinogen, 01/05/25 5:00:00 EDT, URGENT (collect within 2 hrs), Blood, Once, Nurse Collect, Preferred Lab: Other lab service, Stop date 01/05/25 5:00:00 EDT Platelet Count, 01/05/25 5:00:00 EDT, URGENT (collect within 2 hrs), Blood, Once, Nurse Collect, Preferred Lab: Other lab service, Stop date 01/05/25 5:00:00 EDT Prothrombin Time - Panel, 01/05/25 5:00:00 EDT, URGENT (collect within 2 hrs), Blood, Once, Nurse Collect, Preferred Lab: Other lab service, Stop date 01/05/25 5:00:00 EDT Portions of the record may have been created with voice recognition software. Occasional wrong-word or [id number] substitutions may have occurred due to the inherent limitations of voice recognition software. Future Appointments Appointment Date:02/03/2025 09:00:00 AM Scheduled Provider:MANDO FISCHER DO Location:[facility] Appointment Type:OSM OV Post Op Future Scheduled Tests Radiology* MRI Spine Cervical w/o Contrast 09/22/24 [facility] 04-03-2025 Evaluation note* Diagnosis Onset Date Resolution Status Admit Date Atrial fibrillation acute December 25, 2024 9:06am Coronary artery disease acute A pri2024 9:06am Dyslipidemia acute December 25, 2 025 9:06am [facility] Work Phone: 1(370) 409-388604-03-2025 Evaluation note* Diagnosis Onset Date Resolution Status Admit Date Atrial fibrillation acute December 25, 2024 9:06am Coronary artery disease acute A pril 2024 9:06am Dyslipidemia acute December 25, 2 025 9:06am Atrial fibrillation acute January 262024 12:49pm Coronary artery disease acute M 2024 12:49pm Dyslipidemia acute January 26 12:49pm COPD (chronic obstructive pulmonary disease) chronic March 24 2:08pm Hypoxia chronic March 24, 2025 2:08pm Lung nodule chronic March 24 2:08pm [facility] Work Phone: [phone]) 175-610103-31-2025 Note* Exam Date Time Procedure Performing Provider Status 12/22/24 9:28 AM XR Chest 2 Views FREDERICK BEYER MD; Auth (Verified) [id number] ORIGINAL EXAMINATION: TWO XRAY VIEWS OF THE CHEST12/22/2024 9:28 am COMPARISON: None HISTORY: ORDERING SYSTEM PROVIDED HISTORY: Reason for Exam: COPD FINDINGS: The heart size is normal.Stent graft noted in a coronary artery. There is no pulmonary consolidation. No pneumothorax or pleural effusion. No aggressive osseous lesions identified.Fusion plate seen in the lower cervical spine. IMPRESSION: No acute radiographic findings. Interpreted by: Frederick Beyer MD Preliminary Report By: Frederick Beyer MD Electronically signed By Frederick Beyer MD Dictated Date: 12/22/2024 9:54:52 AM Prelim Date: 12/22/2024 9:55:19 AM Sign Date: 12/22/2024 9:55:19 AM Ordering Provider: [facility]03-20-2025 Radiology Diagnostic study note [facility] [address] [place], [place] [id number] Esophagus Dual Contrast MR#: [id number] Acct: [id number] Name: SARTHAK PUTNAM Jr. Rep #: [id number] : 1955 M 69 From: David Justice MD PCP: Dr. Scott Mejia MD Status: MARIA DE JESUS BRAXTON Study:Esophagus Dual Contrast Date of Exam: 12/11/24 Exam# [id number] Ordering Dr: Constantino Dewitt MD PROCEDURE: ESOPHAGUS DUAL CONTRAST 12/11/2024 REASON FOR EXAM: DYSPHAGIA S/P SPINAL SURGERY TECHNIQUE: FLUOROSCOPIC TIME: 38 seconds minutes. 3.5 mGy FLUOROGRAPHIC IMAGES: 62 COMPARISON: None. FINDINGS: The patient ingested barium. Fluoroscopic imaging of the esophagus was performed. There is no evidence of esophageal obstruction. No mass lesion is seen. No evidence of gastroesophageal reflux. The patient ingested a 12 mm tablet the barium without any difficulty. RAD/Esophagus Dual Contrast IMPRESSION: Unremarkable air contrast esophagram. Reading Location: [facility]- CC: Dr. Anthony Dewitt MD; Dr. Scott Mejia MD ~ Pie Filling Mixer: Signed [facility]01-13-2025 Note* Exam Date Time Procedure Performing Provider Status 10/06/24 11:55 AM MRI Spine Cervical w/o Contrast RIMMA VÁZQUEZ MD; Auth (Verified) [id number] ORIGINAL EXAMINATION: MRI OF THE CERVICAL SPINE WITHOUT CONTRAST 10/06/2024 12:36 pm TECHNIQUE: Multiplanar multisequence MRI of the cervical spine was performed without the administration of intravenous contrast. COMPARISON: Cervical spine 09/09/2024. HISTORY: ORDERING SYSTEM PROVIDED HISTORY: Reason for Exam: cervical myelopathy FINDINGS: BONES/ALIGNMENT: Anterior plate and screws transfix C3 and C4. There is interbody bony fusion of C5 and C6. A plate and screws transfix C6 and C7. SPINAL CORD: No abnormal cord signal is seen. SOFT TISSUES: No paraspinal mass identified. C2-C3: Facet arthropathy is present without significant canal or foraminal stenosis. C3-C4: There is anterior fusion. There is severe canal stenosis mildly impinging upon the cervical spinal cord at this level posteriorly. No definite signal abnormality within the cord. C4-C5: Right facet hypertrophy with mild right bony foraminal narrowing. C5-C6: Status post interbody fusion. There is moderate central canal stenosis. C6-C7: Status post anterior fusion. There is ventral ridging from spur and facet hypertrophy with severe canal stenosis and cord compression. There is a focus of increased T2 signal within the cord. C7-T1: There is no significant disc protrusion, spinal canal stenosis or neural foraminal narrowing. IMPRESSION: 1. Anterior cervical fusion C3-C4 and C6-C7. Interbody fusion C5-C6. 2. Severe spinal canal stenosis at C3-C4 and C6-C7 with moderate cord compression at C6-C7 and mild cord compression at C3-C4. 3. Small focus of increased T2 signal within the cord at C6-C7 consistent with myelomalacia. Interpreted by: Rimma Vázquez Preliminary Report By: Rimma Vázquez Electronically signed By Rimma Vázquez Dictated Date: 10/06/2024 12:42:26 PM Prelim Date: 10/06/2024 12:48:41 PM Sign Date: 10/06/2024 12:48:41 PM Ordering Provider: MANDO FISCHER [facility]12-30-2024 Evaluation + Plan note Future Scheduled Tests Radiology* MRI Spine Cervical w/o Contrast 09/22/24 [facility] 11-29-2024 Hospital Discharge instructions Patient Education 08/22/2024 10:05:15 Pain Relief Before and After Surgery Pain Relief Before and After Surgery Pain relief is an important part of your overall care before, during, and after surgery. You and your health care provider will work together to make a plan to manage pain that you have before surgery (preoperative) and after surgery (postoperative). Addressing pain before surgery lessens the pain that you will have after surgery. Make sure that you fully understand and agree with your pain relief plan. If you have questions or concerns, it is important to discuss them with your health care provider. If you have pain that is not controlled by medicine, tell your health care provider. Severe pain after surgery may: Prevent sleep. Decrease your ability to breathe deeply and to cough. This can result in pneumonia or upper airway infections. Cause your heart to beat more quickly. Cause your blood pressure to be higher. Increase your risk for stomach and digestive problems. Slow down wound healing. Lead to depression, anxiety, and feelings of helplessness. Your health care provider may use more than one method at a time to help relieve your pain. Using this approach may allow you to eat, move around, and possibly leave the hospital sooner. What are options for managing pain before and after surgery? Oral pain medicines Pain medicines taken by mouth (orally) include: Non-narcotic medicines: ?Acetaminophen. ?NSAIDs, such as ibuprofen and naproxen. Muscle relaxants. These may relieve pain caused by muscle spasms. Anticonvulsants. These medicines are usually used to treat seizures. They may help to lessen nerve pain. Opioids. These medicines relieve pain by binding to pain receptors in the brain and spinal cord (narcotic pain medicines). Opioids may help relieve short-term (acute) postoperative pain that is moderate to moderately severe. ?Opioids are often combined with non-narcotic medicines to improve pain relief, lower the risk of side effects, and lower the chance of addiction. ?To help prevent addiction, opioids are given for short periods of time in careful doses. If you follow instructions from your health care provider and you do not have a history of substance abuse, your risk of becoming addicted to opioids is low. Some of these medicines may be available in injectable form. They may be given through an IV if youare unable to eat or drink. As-needed pain control You can receive pain medicine when you need it, through an IV or as a pill or liquid. When you tellyour health care provider that you are having pain, he or she will give you the proper pain medicine. Medicine that numbs an area You may be given pain medicine that numbs an area (local anesthetic): As an injection near your painful area (local infiltration). As an injection near the nerve that provides feeling to a specific part of your body (peripheral nerve block). As an injection in your spine (spinal block). Through a local anesthetic reservoir pump. For this method, one or more catheters are inserted intoyour incision at the end of your procedure. These catheters are connected to a device that is filled with a non-narcotic pain medicine. Medicine gradually empties into your incision area over the next several days. Continuous epidural pain control With this method, you receive pain medicine through a small, thin tube (catheter) that is inserted into your back, near your spinal cord. Medicine flows through the catheter to lessen pain in areas of your body that are below the catheter. The catheter is usually put into the back shortly before surgery. It may be left in until you can eat, take medicine by mouth, pass urine, and have a bowel movement. This method may be recommended if you are having surgery on your abdomen, hip area, or legs. This method of pain relief may help you heal faster because you may be able to do these things sooner: Regain normal bowel and bladder function. Return to eating. Get up and walk. IV patient-controlled analgesia (LEASE ADMINISTRATION ANALYST) pump With this method, you receive pain medicine through an IV that is connected to a LEASE ADMINISTRATION ANALYST pump. The LEASE ADMINISTRATION ANALYST pump gives you a specific amount of medicine when you push a button. This lets you control how much medicine you receive. You are the only person who should push this button. The pump is set up so that you cannot accidentally give yourself too much medicine. You will be able to start using your LEASE ADMINISTRATION ANALYST pump in the recovery room after your procedure. Tell your health care provider: If you are having too much pain. If you cannot push the button. If you are feeling too sleepy or nauseous. Other pain control methods Other methods of pain relief after surgery include: Heat and cold therapy. Massage. Topical analgesics. These are patches, creams, and gels that can be applied on the skin. Steroid medicines. These medicines may be given to lessen swelling. Physical therapy. A physical therapist will work with you to meet goals, such as feeling and functioning better. Physical therapy usually includes specific exercises that are tailored to your needs. Transcutaneous electrical nerve stimulation (TENS). This method sends electrical signals through the skin to interrupt pain signals. Cognitive behavioral therapy (CBT). This therapy helps you learn coping skills for dealing with pain. What are some questions to ask my health care provider? What pain relief options would be best for me? What are the risks of each option? What are the benefits of each option? How long will I need pain relief after surgery? Summary A plan to manage pain that you may have before surgery (preoperative) and after surgery (postoperative) is an important part of your overall care. Pain management options include medicines and non-medical therapies, such as physical therapy, massage, and heat or cold therapy. Pain management medicines include opioids and non-narcotic medicines such as NSAIDs, steroids, or local anesthetics. Pain medicines can have side effects. Side effects of opioids include constipation, nausea, excessive sleepiness, and risk of addiction. Your health care provider will work with you to prevent or manage these side effects and risks. This information is not intended to replace advice given to you by your health care provider. Make sure you discuss any questions you have with your health care provider. Document Released: 12/01/2003 Document Revised: 09/13/2018 Document Reviewed: 12/21/2017 [employer] Patient Education Info. Follow Up Care 01/01/2024 14:22:05 With:SCOTT MEJIA Address: [address] [place] [address] [phone] Business (1) When:1-2 days With:Rey Lucero [facility] [phone] Address:Unknown When:1-2 days With:MANDO FISCHER DO, [facility] Address: [address] [facility] [place] [address]- When:09/09/2024 11:00:00 Comments:FOLLOW UP [facility] 11-29-2024 Nurse Progress note Attempted to call Rey Lucero [phone] at 10:43am, no answer. Attempted to call a second time at 11:25am, no answer. Digitally Signed by Radha Wise RN on 08/22/2024 11:29 AM [id number] Discharge Instructions Thank you for allowing [facility] to assist you with your healthcare needs. The following is importantdischarge information regarding your hospital visit. Your Care Team SCOTT MEJIA MD Your Diagnosis Cervical spondylosis with myelopathy Post-op pain What to do next Scheduled Follow-Up Appointments Appointment Type When With Where Contact Information StatusOSM OV Post Op 09/09/2024 11:00 AM EST MANDO FISCHER DO [facility] [place] Confirmed Follow Up Appointments Follow Up with MANDO FISCHER DO [facility] When:09/09/2024 11:00 AM EST Where:[address] [facility] [place] [address]- Additional Information: FOLLOW UP The Following Activity and Diet Have Been Ordered for You Transfer of Care Activity - Ordered -- Activity As Tolerated, 08/22/24 9:58:00 EST Transfer of Care Diet - Ordered -- Type of Diet: Regular Diet, 08/22/24 9:58:00 EST The Following Equipment Has Been Ordered for You No qualifying data available. The Following Treatments Have Been Ordered for You Discharge Labs No qualifying data available. Discharge Radiology No qualifying data available. Other Therapies No qualifying data available. Post Acute Orders Transfer of Care Code Status - Ordered -- Full Code, Constant Order Transfer of Care Orders Electronically Signed By - Ordered -- 08/22/24 9:58:00 MEGHAN GIRON JEFFREY M DO Transfer of Care Prognosis - Ordered -- Good, Patient Aware: Yes Transfer of Care Rehab Potential - Ordered -- Rehab potential good, 08/22/24 9:58:25 EST Someone Will Contact You Regarding These Home Health Referrals No home referrals have been ordered for you. No one will call you. Allergies NKA Medications Please ask your primary doctor or pharmacist before taking any other medication not listed, including over the counter drugs, herbal medications, vitamins and or supplements as they may interact withyour home medications. What How Much When Why Instructions Last Dose New acetaminophen-oxyCODONE (Percocet 5 mg-325 mg oral tablet) 1 tab(s) by mouth Every 6 hours Post-op pain Duration: 7 Days Pickup at [facility]/pharmacy #[id number] New tiZANidine (tiZANidine 2 mg oral capsule) 1 cap by mouth Every 8 hours Duration: 14 Days Pickup at [facility]/pharmacy #[id number] Unchanged aspirin (aspirin 81 mg oral delayed release tablet) 1 tab(s) by mouth Every day Unchanged atorvastatin (atorvastatin 80 mg oral tablet) 1 tab(s) by mouth Once a day (in the morning) Unchanged busPIRone (busPIRone 7.5 mg oral tablet) 1 tab(s) by mouth Two (2) times a day Unchanged carvedilol (carvedilol 6.25 mg oral tablet) 1 tab(s) by mouth Two (2) times a day Unchanged clopidogrel (clopidogrel 75 mg oral tablet) 1 tab(s) by mouth Once a day Unchanged fluticasone/ umeclidinium/ vilanterol (Trelegy Ellipta 200 mcg-62.5 mcg-25 mcg/ inh inhalation powder) 1 inh by inhalation Daily at 12 noon Unchanged gabapentin (gabapentin 300 mg oral capsule) 1 cap by mouth Daily at bedtime Unchanged lisinopril (lisinopril 5 mg oral tablet) 1 tab(s) by mouth Once a day (in the morning) Unchanged mirtazapine (mirtazapine 30 mg oral tablet) 1 tab(s) by mouth Daily at bedtime Unchanged mupirocin topical (mupirocin 2% topical ointment) 1 application Topical Two (2) times a day Bilateral intranasal application twice daily x 5 days pre-surgery &/ or as many days pre-surgery as possible. Unchanged pantoprazole (Protonix 40 mg oral enteric coated tablet) 1 tab(s) by mouth Once a day before a meal Pharmacy Information [facility]/pharmacy #[id number]: [address], [place] [id number] [phone] Please take this list to your next doctor s visit. Bring all medications you take, including over the counter medications, herbals and other supplements with you to your doctor s visit. Patients and families are reminded to discard old lists and to update any records with all medication providers or retail pharmacies. Medication Leaflets acetaminophen and oxycodone (a SEET a MIN oh fen and OX i KOE done) Endocet 10/325, Endocet 2.5/325, Endocet 5/325, Endocet 7.5/325, Nalocet, Percocet, Prolate What is the most important information I should know about acetaminophen and oxycodone? MISUSE OF OPIOID MEDICINE CAN CAUSE ADDICTION, OVERDOSE, OR . Keep the medication in a place where others cannot get to it. Taking opioid medicine during may cause life-threatening withdrawal symptoms in the . Fatal side effects can occur if you use opioid medicine with alcohol, or with other drugs that cause drowsiness or slow your breathing. Stop taking this medicine and call your doctor right away if you have skin redness or a rash that spreads and causes blistering and peeling. What is acetaminophen and oxycodone? Acetaminophen and oxycodone is a combination medicine used to relieve moderate to severe pain. Acetaminophen and oxycodone contains an opioide medicine and may be habit-forming. Acetaminophen and oxycodone may also be used for purposes not listed in this medication guide. What should I discuss with my healthcare provider before taking acetaminophen and oxycodone? You should not use this medicine if you are allergic to acetaminophen or oxycodone, or if you have: severe asthma or breathing problems; or a blockage in your stomach or intestines. Tell your doctor if you have ever had: breathing problems, sleep apnea; liver disease; a drug or alcohol addiction; kidney disease; a head injury or seizures; urination problems; or problems with your thyroid, pancreas, or gallbladder. If you use opioid medicine while you are , your baby could become dependent on the drug. This can cause life-threatening withdrawal symptoms in the baby after it is born. Babies born dependent on opioids may need medical treatment for several weeks. Ask a doctor before using opioid medicine if you are . Tell your doctor if you notice severe drowsiness or slow breathing in the nursing baby. How should I take acetaminophen and oxycodone? Follow all directions on your prescription label. Never take this medicine in larger amounts, or for longer than prescribed. An overdose can damage your liver or cause . Tell your doctor if you feel an increased urge to use more of this medicine. Never share opioid medicine with another person, especially someone with a history of drug abuse oraddiction. MISUSE CAN CAUSE ADDICTION, OVERDOSE, OR . Keep the medicine in a place where others cannot get to it. Selling or giving away opioid medicine is against the law. Measure liquid medicine carefully. Use the dosing syringe provided, or use a medicine dose-measuring device (not a kitchen spoon). If you need surgery or medical tests, tell the doctor ahead of time that you are using this medicine. You should not stop using this medicine suddenly. Follow your doctor's instructions about tapering your dose. Store at room temperature away from moisture and heat. Keep track of your medicine. You should be aware if anyone is using it improperly or without a prescription. Do not keep leftover opioid medication. Just one dose can cause in someone using this medicine accidentally or improperly. Ask your pharmacist where to locate a drug take-back disposal program.If there is no take-back program, flush the unused medicine down the toilet. What happens if I miss a dose? Since this medicine is used for pain, you are not likely to miss a dose. Skip any missed dose if itis almost time for your next dose. Do not use two doses at one time. What happens if I overdose? Seek emergency medical attention or call the Poison Help line at . An overdose of this medicine can be fatal, especially in a child or other person using the medicine without a prescription. Overdose symptoms may include nausea, vomiting, sweating, severe drowsiness, pinpoint pupils, slow breathing, or no breathing. Your doctor may recommend you get naloxone (a medicine to reverse an opioid overdose) and keep it with you at all times. A person caring for you can give the naloxone if you stop breathing or don't wake up. Your caregiver must still get emergency medical help and may need to perform CPR (cardiopulmonary resuscitation) on you while waiting for help to arrive. Anyone can buy naloxone from a pharmacy or local health department. Make sure any person caring foryou knows where you keep naloxone and how to use it. What should I avoid while taking acetaminophen and oxycodone? Avoid driving or operating machinery until you know how this medicine will affect you. Dizziness ordrowsiness can cause falls, accidents, or severe injuries. Do not drink alcohol. Dangerous side effects or could occur. Ask a doctor or pharmacist before using any other medicine that may contain acetaminophen (sometimes abbreviated as APAP). Taking certain medications together can lead to a fatal overdose. What are the possible side effects of acetaminophen and oxycodone? Get emergency medical help if you have signs of an allergic reaction: hives; difficulty breathing; swelling of your face, lips, tongue, or throat. Opioid medicine can slow or stop your breathing, and may occur. A person caring for you should give naloxone and/or seek emergency medical attention if you have slow breathing with long pauses,blue colored lips, or if you are hard to wake up. In rare cases, acetaminophen may cause a severe skin reaction that can be fatal. This could occur even if you have taken acetaminophen in the past and had no reaction. Stop taking this medicine and call your doctor right away if you have skin redness or a rash that spreads and causes blistering andpeeling. Call your doctor at once if you have: noisy breathing, sighing, shallow breathing, breathing that stops; a light-headed feeling, like you might pass out; weakness, tiredness, fever, unusual bruising or bleeding; confusion, unusual thoughts or behavior; problems with urination; liver problems--nausea, upper stomach pain, tiredness, loss of appetite, dark urine, mayuri-colored stools, jaundice (yellowing of the skin or eyes); low cortisol levels-- nausea, vomiting, loss of appetite, dizziness, worsening tiredness or weakness; or high levels of serotonin in the body--agitation, hallucinations, fever, sweating, shivering, fast heart rate, muscle stiffness, twitching, loss of coordination, nausea, vomiting, diarrhea. Serious breathing problems may be more likely in older adults and in those who are debilitated or have wasting syndrome or chronic breathing disorders. Common side effects include: dizziness, drowsiness, feeling tired; feelings of extreme happiness or sadness; nausea, vomiting, stomach pain; constipation; or headache. This is not a complete list of side effects and others may occur. Call your doctor for medical advice about side effects. You may report side effects to FDA at 4-070-UIL-7480. What other drugs will affect acetaminophen and oxycodone? You may have breathing problems or withdrawal symptoms if you start or stop taking certain other medicines. Tell your doctor if you also use an antibiotic, antifungal medication, heart or blood pressure medication, seizure medication, or medicine to treat HIV or hepatitis C. Opioid medication can interact with many other drugs and cause dangerous side effects or . Be sure your doctor knows if you also use: cold or allergy medicines, bronchodilator asthma/COPD medication, or a diuretic ('water pill'); medicines for motion sickness, irritable bowel syndrome, or overactive bladder; other opioids--opioid pain medicine or prescription cough medicine; a sedative like Valium--diazepam, alprazolam, lorazepam, Xanax, Klonopin, Versed, and others; drugs that make you sleepy or slow your breathing--a sleeping pill, muscle relaxer, medicine to treat mood disorders or mental illness; drugs that affect serotonin levels in your body--a stimulant, or medicine for depression, Parkinson's disease, migraine headaches, serious infections, or nausea and vomiting. This list is not complete. Other drugs may affect acetaminophen and oxycodone, including prescription and bslf-kbe-uuwlilv medicines, vitamins, and herbal products. Not all possible interactions are listed here. Where can I get more information? Your doctor or pharmacist can provide more information about acetaminophen and oxycodone. Remember, keep this and all other medicines out of the reach of children, never share your medicines with others, and use this medication only for the indication prescribed. Every effort has been made to ensure that the information provided by [employer]. ('[employer]') is accurate, up-to-date, and complete, but no guarantee is made to that effect. Drug information contained herein may be time sensitive. [employer] information has been compiled for use by healthcare practitioners and consumers in the [place] and therefore [employer] does not warrant that uses outside of the [place] are appropriate, unless specifically indicated otherwise. [employer] drug information does not endorse drugs, diagnose patients or recommend therapy. [employer] drug information isan informational resource designed to assist licensed healthcare practitioners in caring for their p atients and/or to serve consumers viewing this service as a supplement to, and not a substitute for, the expertise, skill, knowledge and judgment of healthcare practitioners. The absence of a warningfor a given drug or drug combination in no way should be construed to indicate that the drug or drug combination is safe, effective or appropriate for any given patient. [employer] does not assume any responsibility for any aspect of healthcare administered with the aid of information [employer] provides. The information contained herein is not intended to cover all possible uses, directions, precautions, warnings, drug interactions, allergic reactions, or adverse effects. If you have questions about the drugs you are taking, check with your doctor, nurse or pharmacist. Copyright 2039-8446 [employer]. Version: 22.. Revision Date: 04/26/2023. tizanidine (peyton richards) Toney What is the most important information I should know about tizanidine? You should not take tizanidine if you are also taking fluvoxamine or ciprofloxacin. Do not use tizanidine at a time when you need muscle tone for safe balance and movement during certain activities. What is tizanidine? Tizanidine is a muscle relaxer that is used to treat spasticity by temporarily relaxing muscle tone. Tizanidine may also be used for purposes not listed in this medication guide. What should I discuss with my healthcare provider before taking tizanidine? You should not use tizanidine if you are allergic to it, or if: you also take the antidepressant fluvoxamine (Luvox); or you also take the antibiotic ciprofloxacin (Cipro). Tell your doctor if you have ever had: liver disease; kidney disease; or low blood pressure. It is not known whether this medicine will harm an unborn baby. Tell your doctor if you are or plan to become . It may not be safe to breastfeed while using this medicine. Ask your doctor about any risk. How should I take tizanidine? Follow all directions on your prescription label and read all medication guides or instruction sheets. Your doctor may occasionally change your dose. Use the medicine exactly as directed. Tizanidine is usually taken up to 3 times in one day. Allow 6 to 8 hours to pass between doses. Do not take more than three doses (36 mg) in a 24-hour period. Too much of this medicine can damage your liver. You may take tizanidine with or without food, but take it the same way each time. Switching betweentaking tizanidine with food and taking it without food can make the medicine less effective or cause increased side effects. Switching between tizanidine tablets and capsules may cause changes in side effects or how well themedicine works. Taking the tablets with food can increase your blood levels of tizanidine. Taking the capsules with food can decrease your blood levels of tizanidine. If you make any changes in how you take tizanidine, tell your doctor if you notice any change in side effects or in how well the medicine works. Tizanidine is a short-acting medication, and its effects will be most noticeable between 1 and 3 hours after you take it. You should take tizanidine only for daily activities that require relief frommuscle spasms. You will need frequent medical tests. If you stop using tizanidine suddenly after long-term use, you may have withdrawal symptoms such asdizziness, fast heartbeats, tremors, and anxiety. Ask your doctor how to safely stop using this medicine. Store at room temperature away from moisture and heat. What happens if I miss a dose? Take the medicine as soon as you can, but skip the missed dose if it is almost time for your next dose. Do not take two doses at one time. What happens if I overdose? Seek emergency medical attention or call the Poison Help line at . Overdose symptoms may include weakness, drowsiness, confusion, slow heart rate, shallow breathing, feeling light-headed, or fainting. What should I avoid while taking tizanidine? Do not use tizanidine at a time when you need muscle tone for safe balance and movement during certain activities. In some situations, it may be dangerous for you to have reduced muscle tone. Drinking alcohol with this medicine can cause side effects. Avoid driving or hazardous activity until you know how this medicine will affect you. Your reactions could be impaired. Avoid getting up too fast from a sitting or lying position, or you may feel dizzy. What are the possible side effects of tizanidine? Get emergency medical help if you have signs of an allergic reaction: hives; difficult breathing; swelling of your face, lips, tongue, or throat. Call your doctor at once if you have: a light-headed feeling, like you might pass out; weak or shallow breathing; confusion, hallucinations; or pain or burning when you urinate. Common side effects may include: drowsiness, dizziness, weakness; feeling nervous; blurred vision; flu-like symptoms; dry mouth, trouble speaking; abnormal liver function tests; runny nose, sore throat; urination problems, painful urination; vomiting, constipation; or uncontrolled muscle movements. This is not a complete list of side effects and others may occur. Call your doctor for medical advice about side effects. You may report side effects to FDA at 1-238-ZSG-9673. What other drugs will affect tizanidine? Taking tizanidine with other drugs that make you sleepy or slow your breathing can cause dangerous side effects or . Ask your doctor before using opioid medication, a sleeping pill, a muscle relaxer, or medicine for anxiety or seizures. Tell your doctor about all your other medicines, especially: acyclovir; ticlopidine; zileuton; control pills; an antibiotic--ciprofloxacin, levofloxacin, moxifloxacin, or ofloxacin; blood pressure medicine--clonidine, guanfacine, methyldopa; heart rhythm medicine--amiodarone, mexiletine, propafenone, verapamil; or stomach acid medicine--cimetidine, famotidine. This list is not complete. Other drugs may affect tizanidine, including prescription and bsmb-xwq-hwrqdid medicines, vitamins, and herbal products. Not all possible drug interactions are listed here. Where can I get more information? Your pharmacist can provide more information about tizanidine. Remember, keep this and all other medicines out of the reach of children, never share your medicines with others, and use this medication only for the indication prescribed. Every effort has been made to ensure that the information provided by [employer]') is accurate, up-to-date, and complete, but no guarantee is made to that effect. Drug information contained herein may be time sensitive. [employer] information has been compiled for use by healthcare practitioners and consumers in the [place] and therefore [employer] does not warrant that uses outside of the [place] are appropriate, unless specifically indicated otherwise. [employer] drug information does not endorse drugs, diagnose patients or recommend therapy. [employer] drug information isan informational resource designed to assist licensed healthcare practitioners in caring for their p atients and/or to serve consumers viewing this service as a supplement to, and not a substitute for, the expertise, skill, knowledge and judgment of healthcare practitioners. The absence of a warningfor a given drug or drug combination in no way should be construed to indicate that the drug or drug combination is safe, effective or appropriate for any given patient. [employer] does not assume any responsibility for any aspect of healthcare administered with the aid of information [employer] provides. The information contained herein is not intended to cover all possible uses, directions, precautions, warnings, drug interactions, allergic reactions, or adverse effects. If you have questions about the drugs you are taking, check with your doctor, nurse or pharmacist. Copyright 7544-7232 [employer] [facility]. Version: 4.01. Revision Date: 11/29/2020. Education Materials Pain Relief Before and After Surgery Pain relief is an important part of your overall care before, during, and after surgery. You and your health care provider will work together to make a plan to manage pain that you have before surgery (preoperative) and after surgery (postoperative). Addressing pain before surgery lessens the pain that you will have after surgery. Make sure that you fully understand and agree with your pain relief plan. If you have questions or concerns, it is important to discuss them with your health care provider. If you have pain that is not controlled by medicine, tell your health care provider. Severe pain after surgery may: Prevent sleep. Decrease your ability to breathe deeply and to cough. This can result in pneumonia or upper airway infections. Cause your heart to beat more quickly. Cause your blood pressure to be higher. Increase your risk for stomach and digestive problems. Slow down wound healing. Lead to depression, anxiety, and feelings of helplessness. Your health care provider may use more than one method at a time to help relieve your pain. Using this approach may allow you to eat, move around, and possibly leave the hospital sooner. What are options for managing pain before and after surgery? Oral pain medicines Pain medicines taken by mouth (orally) include: Non-narcotic medicines: ? Acetaminophen. ? NSAIDs, such as ibuprofen and naproxen. Muscle relaxants. These may relieve pain caused by muscle spasms. Anticonvulsants. These medicines are usually used to treat seizures. They may help to lessen nerve pain. Opioids. These medicines relieve pain by binding to pain receptors in the brain and spinal cord (narcotic pain medicines). Opioids may help relieve short-term (acute) postoperative pain that is moderate to moderately severe. ? Opioids are often combined with non-narcotic medicines to improve pain relief, lower the risk of side effects, and lower the chance of addiction. ? To help prevent addiction, opioids are given for short periods of time in careful doses. If you follow instructions from your health care provider and you do not have a history of substance abuse, your risk of becoming addicted to opioids is low. Some of these medicines may be available in injectable form. They may be given through an IV if youare unable to eat or drink. As-needed pain control You can receive pain medicine when you need it, through an IV or as a pill or liquid. When you tellyour health care provider that you are having pain, he or she will give you the proper pain medicine. Medicine that numbs an area You may be given pain medicine that numbs an area (local anesthetic): As an injection near your painful area (local infiltration). As an injection near the nerve that provides feeling to a specific part of your body (peripheral nerve block). As an injection in your spine (spinal block). Through a local anesthetic reservoir pump. For this method, one or more catheters are inserted intoyour incision at the end of your procedure. These catheters are connected to a device that is filled with a non-narcotic pain medicine. Medicine gradually empties into your incision area over the next several days. Continuous epidural pain control With this method, you receive pain medicine through a small, thin tube (catheter) that is inserted into your back, near your spinal cord. Medicine flows through the catheter to lessen pain in areas of your body that are below the catheter. The catheter is usually put into the back shortly before surgery. It may be left in until you can eat, take medicine by mouth, pass urine, and have a bowel movement. This method may be recommended if you are having surgery on your abdomen, hip area, or legs. This method of pain relief may help you heal faster because you may be able to do these things sooner: Regain normal bowel and bladder function. Return to eating. Get up and walk. IV patient-controlled analgesia (LEASE ADMINISTRATION ANALYST) pump With this method, you receive pain medicine through an IV that is connected to a LEASE ADMINISTRATION ANALYST pump. The LEASE ADMINISTRATION ANALYST pump gives you a specific amount of medicine when you push a button. This lets you control how much medicine you receive. You are the only person who should push this button. The pump is set up so that you cannot accidentally give yourself too much medicine. You will be able to start using your LEASE ADMINISTRATION ANALYST pump in the recovery room after your procedure. Tell your health care provider: If you are having too much pain. If you cannot push the button. If you are feeling too sleepy or nauseous. Other pain control methods Other methods of pain relief after surgery include: Heat and cold therapy. Massage. Topical analgesics. These are patches, creams, and gels that can be applied on the skin. Steroid medicines. These medicines may be given to lessen swelling. Physical therapy. A physical therapist will work with you to meet goals, such as feeling and functioning better. Physical therapy usually includes specific exercises that are tailored to your needs. Transcutaneous electrical nerve stimulation (TENS). This method sends electrical signals through the skin to interrupt pain signals. Cognitive behavioral therapy (CBT). This therapy helps you learn coping skills for dealing with pain. What are some questions to ask my health care provider? What pain relief options would be best for me? What are the risks of each option? What are the benefits of each option? How long will I need pain relief after surgery? Summary A plan to manage pain that you may have before surgery (preoperative) and after surgery (postoperative) is an important part of your overall care. Pain management options include medicines and non-medical therapies, such as physical therapy, massage, and heat or cold therapy. Pain management medicines include opioids and non-narcotic medicines such as NSAIDs, steroids, or local anesthetics. Pain medicines can have side effects. Side effects of opioids include constipation, nausea, excessive sleepiness, and risk of addiction. Your health care provider will work with you to prevent or manage these side effects and risks. This information is not intended to replace advice given to you by your health care provider. Make sure you discuss any questions you have with your health care provider. Document Released: 12/01/2003 Document Revised: 09/13/2018 Document Reviewed: 12/21/2017 [employer] Patient Education 2020 [employer]. Additional Information VACCINATE! IT SAVES LIVES! Members of the community who have not yet received the COVID-19 vaccine and would like to receive it can visit one of [facility] vaccine clinics. There are many vaccine clinic locations within the [facility]. For locations and available times, please visit [email or web address] It is important to note that some COVID mobile vaccine clinics are held outdoors and may be canceled in rainy or stormy conditions. To learn more about pediatric vaccinations (ages 5-11), we invite you to visit the [facility] webpage. [email or web address] learn more about the COVID-19 vaccine, we invite you to visit the CDC website for a list of frequently asked questions.https://www.cdc.gov/coronavirus/2019-ncov/vaccines/faq.html [facility] Patient Portal Access Instructions: Stay connected with your healthcare team and access your personal medical information anytime with the [facility] Patient Portal. Please follow the directions below to create your [facility] account: 1.Access the email account you provided upon registration to the hospital/physician office.2.Look for an invitation email from [facility].3.Open the email and access the invitation link: AcceptInvitation to [facility].4.Fill in the required pemberton to create your account. To access your account, visit [email or web address]. Click the blue button labeled Access Patient Portal and then log in with the username and password that you created in the steps above. You will be able to view your test results, lab results, a summary of your visits, upcoming appointments and more. There is also a convenient messaging option where you can send secure messages to your p [employer]. In addition, you will have the ability to download any documents or summaries to your computer and/or send the information securely to a physician. Remember that your healthcare information is confidential, so carefully consider who you will allowto register on the [facility] Patient Portal for access to your information. You can also access the [facility] Patient Portal on the [facility]ino. Simply click on Patient Portal and then log into your account. If you would like to receive a full copy of your medical records, please contact the [facility] Medical Records Department by calling [phone], Sunday through Sunday between 8 a.m. and 4:30 p.m. HOW TO SAFELY DISPOSE OF PRESCRIPTION MEDICATIONS Please use one of the following methods to safely dispose of your unused medications. 1.Use a drug disposal kit: the drug disposal pouch allows you to safely discard your old and unuseddrugs. Ask your nurse to give you one when you are discharged.2.Visit a local take-back location: Many local pharmacies and police departments have programs that collect old and unwanted prescriptiondrugs. Call your local pharmacy or go to http://Innovaspire.Audioms/0R4Cw7y to find one close to you.3.Make use of household items: Use cat litter or old coffee grounds to dispose medications if other options arenot available. Mix your drugs with these household products, seal them in an airtight container andthrow it into the garbage. Call [facility]: [phone] to be sure your drugs can be disposed of in this way. Some medicines may require a different approach.4.Never flush your medications down the toilet. IF YOU HAVE BEEN PRESCRIBED AN OPIOID FOR PAIN If you have been prescribed an opioid (such as hydrocodone, oxycodone or morphine), it is critical to understand the possible side effects and risks of opioid pain medications. Even when taken as directed, opioids can have several side effects including: Tolerance, meaning you might need to take more of a medication for the same pain relief. Nausea, vomiting and/or constipation. Sleepiness, dizziness, dry mouth, confusion, depression or itching. Physical dependence, meaning you have withdrawal symptoms when a medication is stopped, can develop within a few days. KNOW YOUR RESPONSIBILITIES It is important to know exactly how much and how often to take the opioid pain medications you are prescribed. Never take opioids in higher amounts or more often than prescribed. Do not combine opioids with alcohol or other drugs that cause drowsiness, such as benzodiazepines, also known as benzos, including diazepam and alprazolam, muscle relaxants or sleep aids. Never sell or share prescription opioids. This is illegal. Store opioids in a secure place and out of reach of others (including children, family, friends and visitors). The last page of this document has been signed and retained as a CHART COPY. Signatures Patient Education Materials Pain Relief Before and After Surgery Medication Leaflets acetaminophen and oxycodone, tizanidine My discharge plan and instructions have been reviewed and explained to me and I,SARTHAK PUTNAM JR Aunderstand my current condition and have read and understand these discharge instructions. I have received a written copy of the plan/instructions. If I have questions, I am aware that I should contact my doctor. Patient/Service Counselor Signature: Date/Time: Relationship to Patient: Witness Name/Signature: [id number] Progress note Date of Service August 22, 2024 Chief Complaint Postop day #4 ACDF C3-C4 and C6-C7 Subjective Patient is alert oriented this morning. He complains of some neck discomfort. He is waiting for hismorning dose of medication. He feels mild improvement in the strength of his arms and legs. He has not yet been out of bed today. Objective Vitals and Measurements T: 37.2 C (Oral) TMIN: 36.8 C (Oral) TMAX: 37.2 C (Oral) HR: 80 RR: 18 BP: 121/79 SpO2: 93% Intake and Output 7AM Yesterday to 7AM Today Intake and Output (Last 24 hours) Intake Oral Intake 145.00 Output Urinary Catheter Output: 1000.00 Stool Count 0.00 Total Summary Total Intake 145.00 Total Output 1000.00 Fluid Balance -855.00 Physical Exam Physical exam today shows better strength against gravity of both left upper and lower extremities.Will determine the functionality of the strength when therapy sees him today. Weight Dosing Weight: 78.2 kg (08/18/24) Dosing Weight: 78.2 kg (08/18/24) Medications Medications (19) Active Scheduled: (11) albuterol - ipratropium 2.5 mg-0.5 mg/3 mL Inhal Barbara UD 3 mL, Inhalation, TIDRT atorvastatin 80 mg tablet 80 mg 1 tab(s), Oral, qAM budesonide 0.5 mg/2 mL Susp UD 0.5 mg 2 mL, Inhalation, BIDRT busPIRone 7.5 mg tablet 7.5 mg 1 tab(s), Oral, BID carvedilol 6.25 mg tablet 6.25 mg 1 tab(s), Oral, BIDM famotidine 20 mg tablet 20 mg 1 tab(s), Oral, qDay gabapentin 300 mg Capsule 300 mg 1 cap(s), Oral, qHS lisinopril 5 mg tablet 5 mg 1 tab(s), Oral, qAM mirtazapine 15 mg tablet 30 mg 2 tab(s), Oral, qHS pantoprazole 40 mg EC tablet 40 mg 1 tab(s), Oral, qDayAC tamsulosin 0.4 mg Capsule 0.4 mg 1 cap(s), Oral, qHS Continuous: (0) PRN: (8) acetaminophen 325 mg Tablet 650 mg 2 tab(s), Oral, q6h acetaminophen 325 mg Tablet 650 mg 2 tab(s), Oral, q4h acetaminophen-OXYcodone 325 mg-5 mg Tablet 2 tab(s), Oral, q4h benzocaine-menthol (Cepacol Sore Throat) 15 mg-3.6mg lozenge 1 lozenge(s), Oral, q2h cyclobenzaprine 10 mg Tablet 10 mg 1 tab(s), Oral, q8h dextrose 50% Solution Disp syringe 50 mL 12.5 gram(s) 25 mL, IV Push, AsDirected ondansetron 2 mg/ 1 mL 2 mL INJ 4 mg 2 mL, IV Push, q4h polyethylene glycol 3350 - UD packet 17 gram(s) 15 mL, Oral, qDay Lab Results No 36 Hour Lab Data EKG No qualifying data available. Assessment/Plan Cervical spondylosis with myelopathy Urology consult noted. Continue physical therapy. Awaiting placement for inpatient assisted and rehabilitation. Stable for discharge from a surgical standpoint. Post-op pain Digitally Signed by MANDO FISCHER DO on 08/22/2024 08:10 [id number] U[facility] Consult note Date of Service 08/21/2024 Reason for Consultation Retention History of Present Illness This is a 69-year-old male with no apparent urological history who is status post cervical discectomy on 08/18/2024. Postoperatively he had difficulty voiding and was straight catheterized x 2 for about 700 cc residual over the last 24 hours, then Giordano catheter was placed apparently without difficulty. He has been tolerating his Giordano. Physical Exam Vitals and Measurements T: 37.5 C (Oral) TMIN: 36.8 C (Oral) TMAX: 37.5 C (Oral) HR: 75 RR: 20 BP: 101/67 SpO2: 91% Weight Dosing Weight: 78.2 kg (08/18/24) Dosing Weight: 78.2 kg (08/18/24) Soft. Penoscrotal. Bladder soft not distended. Giordano in proper position draining clear Assessment/Plan 1. Status post cervical discectomy and fusion for spondylosis and myelopathy. 08/18/2024 2. Postoperative urinary tension multifactorial secondary to decreased mobility, narcotics and diminished bowel function. No prior urological history Agree with Giordano catheter placement and begin Flomax. Okay for discharge to assisted facility with Giordano for voiding trial once more ambulatory over the next 5 to 7 days. 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 Spinal stenosis at L4-L5 level Stented coronary artery Historical Chest pain Procedure/Surgical History Cardiac catheterization: 01/2024 Biopsy of lun12/2023 Cardiac catheterization: 2008 Microdiscectomy: 1996 Medications Inpatient atorvastatin, 80 mg= 1 tab(s), Oral, qAM busPIRone, 7.5 mg= 1 tab(s), Oral, BID carvedilol 6.25 mg oral tablet, 6.25 mg= 1 tab(s), Oral, BIDM cyclobenzaprine 10 mg oral tablet, 10 mg= 1 tab(s), Oral, q8h, PRN Dextrose 50% IV Push, 12.5 gram(s)= 25 mL, IV Push, AsDirected, PRN DuoNeb 0.5 mg - 2.5 mg/3 mL inhalation soln, 3 mL, Inhalation, TIDRT Flomax, 0.4 mg= 1 cap(s), Oral, qHS gabapentin, 300 mg= 1 cap(s), Oral, qHS lisinopril, 5 mg= 1 tab(s), Oral, qAM Miralax Powder Packet, 17 gram(s)= 15 mL, Oral, qDay, PRN mirtazapine, 30 mg= 2 tab(s), Oral, qHS Pepcid, 20 mg= 1 tab(s), Oral, qDay Percocet 325/5, 2 tab(s), Oral, q4h, PRN Protonix, 40 mg= 1 tab(s), Oral, qDayAC Pulmicort Respules 0.5 mg/2 mL inhalation suspension, 0.5 mg= 2 mL, Inhalation, BIDRT Tylenol, 650 mg= 2 tab(s), Oral, q6h, PRN Tylenol, 650 mg= 2 tab(s), Oral, q4h, PRN Zofran, 4 mg= 2 mL, IV Push, q4h, PRN Home aspirin 81 mg oral delayed release tablet, 81 mg= 1 tab(s), Oral, Daily, On hold for Surgery atorvastatin 80 mg oral tablet, 80 mg= 1 tab(s), Oral, qAM busPIRone 7.5 mg oral tablet, 7.5 mg= 1 tab(s), Oral, BID carvedilol 6.25 mg oral tablet, 6.25 mg= 1 tab(s), Oral, BID clopidogrel 75 mg oral tablet, 75 mg= 1 tab(s), Oral, qDay, On hold for Surgery gabapentin 300 mg oral capsule, 300 mg= 1 cap(s), Oral, qHS lisinopril 5 mg oral tablet, 5 mg= 1 tab(s), Oral, qAM mirtazapine 30 mg oral tablet, 30 mg= 1 tab(s), Oral, qHS mupirocin 2% topical ointment, 1 lino, Topical, BID Percocet 5 mg-325 mg oral tablet, 1 tab(s), Oral, q6hr Protonix 40 mg oral enteric coated tablet, 40 mg= 1 tab(s), Oral, qDayAC, 6 refills tiZANidine 2 mg oral capsule, 2 mg= 1 cap(s), Oral, q8h Trelegy Ellipta 200 mcg-62.5 mcg-25 mcg/inh inhalation powder, 1 inh, Inhalation, 12 (noon) Allergies NKA Social History Smoking Status - 04/24/2015 Current every day smoker Alcohol - Denies Alcohol Use, 09/06/2018 Use: Never., 11/29/2023 Home/Environment Living situation: Home/Independent. Domestic Concerns: None. Lives In: Single level home. Current Home Treatments Oxygen therapy, walker. Professional Skilled Services or Special Community Resources None. Marital Status: ., 08/04/2024 Sexual - No Risk, 09/06/2018 Substance Abuse - Denies Substance Abuse, 09/06/2018 Use: Never., 11/29/2023 Tobacco - High Risk, 09/06/2018 Nicotine Use: Former smoker, quit more than 30 days ago. Type: Cigarettes. Started at age: 8 Years.Stopped at age: 68 Years., 08/04/2024 Family History Cancer: Mother and Father. Diabetes mellitus: Mother. HTN - Hypertension: Mother. Heart disease: Mother, Father and Brother. Health Status Family Member(s) Immunizations pneumococcal 23-valent vaccine(Pneumovax: 0.5 unknown unit (03/09/20) pneumococcal 23-valent vaccine(Pneumovax: 0.5 mL (04/07/10) tetanus/diphth/pertuss (Tdap) adult/adol: 0 unknown unit (04/20/16) Digitally Signed by MANDO MÉNDEZ MD on 08/21/2024 12:04 PM [id number] Progress note Date of Service August 21, 2024 Chief Complaint Postop day #3 ACDF Subjective Patient is alert and awake. He denies any significant pain. Continues to complain of weakness in the legs and left upper extremity greater than the right. I reviewed his physical therapy notes. He isrequiring max to total assist for transfers and ambulation. I asked about his function at home and he states he was using a walker exclusively and required the assistance of his to transfer. Objective Vitals and Measurements T: 37.5 C (Oral) TMIN: 36.6 C (Oral) TMAX: 37.5 C (Oral) HR: 80 RR: 18 BP: 101/67 SpO2: 93% Intake and Output 7AM Yesterday to 7AM Today Intake and Output (Last 24 hours) Intake Oral Intake 275.00 Output Urine Voided 0.00 Urinary Catheter Output: 1425.00 Stool Count 0.00 Urine Count 0.00 Total Summary Total Intake 275.00 Total Output 1425.00 Fluid Balance -1150.00 Physical Exam On exam today is alert and oriented x 3. He continues to demonstrate weakness of the left arm greater than the right. He does have better motion of the fingers today. Left lower extremity strength isimproved. He still has significant dorsiflexion weakness of the left leg and extension strength. Right leg shows milder weakness. Weight Dosing Weight: 78.2 kg (08/18/24) Dosing Weight: 78.2 kg (08/18/24) Medications Medications (18) Active Scheduled: (11) albuterol - ipratropium 2.5 mg-0.5 mg/3 mL Inhal Barbara UD 3 mL, Inhalation, TIDRT atorvastatin 80 mg tablet 80 mg 1 tab(s), Oral, qAM budesonide 0.5 mg/2 mL Susp UD 0.5 mg 2 mL, Inhalation, BIDRT busPIRone 7.5 mg tablet 7.5 mg 1 tab(s), Oral, BID carvedilol 6.25 mg tablet 6.25 mg 1 tab(s), Oral, BIDM famotidine 20 mg tablet 20 mg 1 tab(s), Oral, qDay gabapentin 300 mg Capsule 300 mg 1 cap(s), Oral, qHS lisinopril 5 mg tablet 5 mg 1 tab(s), Oral, qAM mirtazapine 15 mg tablet 30 mg 2 tab(s), Oral, qHS pantoprazole 40 mg EC tablet 40 mg 1 tab(s), Oral, qDayAC tamsulosin 0.4 mg Capsule 0.4 mg 1 cap(s), Oral, qHS Continuous: (0) PRN: (7) acetaminophen 325 mg Tablet 650 mg 2 tab(s), Oral, q6h acetaminophen 325 mg Tablet 650 mg 2 tab(s), Oral, q4h acetaminophen-OXYcodone 325 mg-5 mg Tablet 2 tab(s), Oral, q4h cyclobenzaprine 10 mg Tablet 10 mg 1 tab(s), Oral, q8h dextrose 50% Solution Disp syringe 50 mL 12.5 gram(s) 25 mL, IV Push, AsDirected ondansetron 2 mg/ 1 mL 2 mL INJ 4 mg 2 mL, IV Push, q4h polyethylene glycol 3350 - UD packet 17 gram(s) 15 mL, Oral, qDay Lab Results No 36 Hour Lab Data EKG No qualifying data available. Assessment/Plan Cervical spondylosis with myelopathy Plan is to continue physical therapy. He will require assisted for rehabilitation. Orthopedically stable for transfer when assisted bed is available. Post-op pain Orders: Consult to Physician, 08/20/24 14:55:00 EST, [facility]ITAL[facility] (For Consultation Assignment OnlyNO other Orders), Routine, re-consult to follow medically. low urine output. Digitally Signed by MANDO FISCHER DO on 08/21/2024 07:06 AM [id number] Note Date of Service 08/20/24 Chief Complaint Post op urinary retention My colleague singed off yesterday, however, we were recalled today by ortho team for recurrent postop urinary retention, patient needed to be straight cathed 2 times, with 700-800 ml drained each time, he denies any previous history of BPH. Subjective Patient was evaluated at bedside with RN He is resting in bed comfortably in NAD, no reported acute events overnight, stable hemodynamically, afebrile, and on O2 via NC at 2 L/m, which is his baseline. Objective Vitals and Measurements T: 36.6 C (Oral) TMIN: 36.4 C (Oral) TMAX: 36.6 C (Oral) HR: 117 RR: 20 BP: 97/69 SpO2: 94% Intake and Output 7AM Yesterday to 7AM Today Intake and Output (Last 24 hours) Intake Oral Intake 350.00 Output Urine Voided 0.00 Urinary Catheter Output: 850.00 Stool Count 0.00 Urine Count 0.00 Total Summary Total Intake 350.00 Total Output 850.00 Fluid Balance -500.00 Physical Exam General: Alert, appropriate and awake, oriented to time, people and place Skin: No rash. Warm, Dry, Intact HEENT: Head is normocephalic and atraumatic. No lesions. Pupils equal in size. Extraocular movements within normal limits. Nose: No septal deviation. Mouth: Oropharynx mucosa is without lesion. Neck: Supple. No lymphadenopathy, thyromegaly noted. Lungs: Bilaterally clear/diminished breath sounds with no crepitation or wheeze. Unlabored Cardiovascular: Heart is regular rhythm, S1S2, No extra-audible heart tones Abdomen: Abdomen is soft, nontender. Bowel sounds positive all four quadrants. Extremities: No clubbing, cyanosis or edema. Peripheral pulses palpable. No calf tenderness. Adequate peripheral circulation. Neurological: Following simple commands, moving all extremities. Weight Dosing Weight: 78.2 kg (08/18/24) Dosing Weight: 78.2 kg (08/18/24) Medications Medications (17) Active Scheduled: (10) albuterol - ipratropium 2.5 mg-0.5 mg/3 mL Inhal Barbara UD 3 mL, Inhalation, TIDRT atorvastatin 80 mg tablet 80 mg 1 tab(s), Oral, qAM budesonide 0.5 mg/2 mL Susp UD 0.5 mg 2 mL, Inhalation, BIDRT busPIRone 7.5 mg tablet 7.5 mg 1 tab(s), Oral, BID carvedilol 6.25 mg tablet 6.25 mg 1 tab(s), Oral, BIDM famotidine 20 mg tablet 20 mg 1 tab(s), Oral, qDay gabapentin 300 mg Capsule 300 mg 1 cap(s), Oral, qHS lisinopril 5 mg tablet 5 mg 1 tab(s), Oral, qAM mirtazapine 15 mg tablet 30 mg 2 tab(s), Oral, qHS pantoprazole 40 mg EC tablet 40 mg 1 tab(s), Oral, qDayAC Continuous: (0) PRN: (7) acetaminophen 325 mg Tablet 650 mg 2 tab(s), Oral, q6h acetaminophen 325 mg Tablet 650 mg 2 tab(s), Oral, q4h acetaminophen-OXYcodone 325 mg-5 mg Tablet 2 tab(s), Oral, q4h cyclobenzaprine 10 mg Tablet 10 mg 1 tab(s), Oral, q8h dextrose 50% Solution Disp syringe 50 mL 12.5 gram(s) 25 mL, IV Push, AsDirected ondansetron 2 mg/ 1 mL 2 mL INJ 4 mg 2 mL, IV Push, q4h polyethylene glycol 3350 - UD packet 17 gram(s) 15 mL, Oral, qDay Lab Results 08/19 04:17 WBC: 9.3 Hgb: 13.5 Hct: 39.4 L Platelet: 242 Neutrophil %: 85.4 H EKG No qualifying data available. Assessment/Plan Cervical spondylosis with myelopathy s/p cervical discectomy and fusion, management per primary team Post op urinary retention -place Giordano catheter -start Flomax -consult urology COPD with chronic hypoxic respiratory failure -wears 2 L of oxygen at baseline, currently at baseline, no signs of COPD exacerbation. Hx CAD status post PCI in January of this year. 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 Continue dual antiplatelet when okay with primary team GERD continue PPI Anxiety/depression -Continue BuSpar Plan: Neurological Monitoring: Neurological Checks: Regular assessments to monitor for any changes in neurological status, including motor and sensory function. Pain Management: Optimize pain control with appropriate medications, considering both the surgical site and any neuropathic pain. Respiratory Management: Oxygen Therapy: Continue chronic oxygen therapy as prescribed. Monitor oxygen saturation levels closely. Pulmonary Hygiene: Encourage deep breathing exercises, incentive spirometry, and mobilization to prevent atelectasis and other pulmonary complications. Urinary Retention Management: Giordano Catheter Care: Ensure proper catheter care to prevent infection. Monitor for signs of urinarytract infection. Start Flomax 0.4 mg daily. Urology Consultation: For further management if urinary retention persists. Postoperative Care: Wound Care: Monitor the surgical site for signs of infection, dehiscence, or other complications. Follow up with the surgical team as needed. Physical Therapy: To aid in recovery, focusing on mobility, strength, and preventing complications. Medication Management: Patient Education and Support: Educate the patient and family about postoperative care, signs of complications, and when to seek medical attention. Provide emotional support and address any concerns the patient or family may have regarding recovery and long-term outcomes. Anticipated Date of Discharge 10/21/2023 Time Spent 32 minutes Digitally Signed by NELLY PETERS MD on 08/20/2024 03:32 PM [id number] Orth[facility] Progress note Date of Service 08/20/2024 Subjective Patient seen and examined at bedside. His pain is currently well-controlled. However, patient states that he is not doing well this morning, due to the fact that his left side is weak. He is saying that his left arm and leg are weaker than they were prior to surgery and that he is not able to do much with physical therapy. Objective Vitals and Measurements T: 36.6 C (Oral) TMIN: 36.3 C (Oral) TMAX: 36.6 C (Oral) HR: 75 RR: 18 BP: 117/76 SpO2: 93% Intake and Output 7AM Yesterday to 7AM Today Intake and Output (Last 24 hours) Intake Oral Intake 590.00 Output Urine Voided 410.00 Stool Count 0.00 Total Summary Total Intake 590.00 Total Output 410.00 Fluid Balance 180.00 Physical Exam Spine exam: Incision is intact with minimal drainage. No signs of infection. Aquacel in place. Mild numbness about the left upper extremity. Sensation intact to light touch C5-T1 on the right upper extremity. Motor function to AIN, PIN, ulnar nerve somewhat diminished mostly on left upper extremity. Radial pulse palpable bilaterally Lower extremity: Skin is intact. Sensation intact to light touch L3-S1 Gross motor function to EHL/FHL, plantar/dorsiflexion, knee flexion/extension, hip flexion/extension. There is still weakness bilaterally, with the left worse than right. DP and PT pulses palpable Compartments are soft and compressible No calf tenderness bilaterally Weight Dosing Weight: 78.2 kg (08/18/24) Dosing Weight: 78.2 kg (08/18/24) Medications Medications (17) Active Scheduled: (10) albuterol - ipratropium 2.5 mg-0.5 mg/3 mL Inhal Barbara UD 3 mL, Inhalation, TIDRT atorvastatin 80 mg tablet 80 mg 1 tab(s), Oral, qAM budesonide 0.5 mg/2 mL Susp UD 0.5 mg 2 mL, Inhalation, BIDRT busPIRone 7.5 mg tablet 7.5 mg 1 tab(s), Oral, BID carvedilol 6.25 mg tablet 6.25 mg 1 tab(s), Oral, BIDM famotidine 20 mg tablet 20 mg 1 tab(s), Oral, qDay gabapentin 300 mg Capsule 300 mg 1 cap(s), Oral, qHS lisinopril 5 mg tablet 5 mg 1 tab(s), Oral, qAM mirtazapine 15 mg tablet 30 mg 2 tab(s), Oral, qHS pantoprazole 40 mg EC tablet 40 mg 1 tab(s), Oral, qDayAC Continuous: (0) PRN: (7) acetaminophen 325 mg Tablet 650 mg 2 tab(s), Oral, q6h acetaminophen 325 mg Tablet 650 mg 2 tab(s), Oral, q4h acetaminophen-OXYcodone 325 mg-5 mg Tablet 2 tab(s), Oral, q4h cyclobenzaprine 10 mg Tablet 10 mg 1 tab(s), Oral, q8h dextrose 50% Solution Disp syringe 50 mL 12.5 gram(s) 25 mL, IV Push, AsDirected ondansetron 2 mg/ 1 mL 2 mL INJ 4 mg 2 mL, IV Push, q4h polyethylene glycol 3350 - UD packet 17 gram(s) 15 mL, Oral, qDay Lab Results 08/19 04:17 WBC: 9.3 Hgb: 13.5 Hct: 39.4 L Platelet: 242 Neutrophil %: 85.4 H EKG No qualifying data available. Assessment/Plan Cervical spondylosis with myelopathy Postoperative day # 2 from an ACDF to C3-C4, C6-C7 with interbody fusion cages and anterior plate fixation -PT/OT recommendations appreciated. -Home aspirin and SCDs for DVT prophylaxis -Post op Hgb is 13.5, 08/19 -Maintain dressing, reinforce as needed. May change if oversaturated. -Medical management per hospitalist service -Case management consulted for discharge planning. Physical therapy recommending inpatient rehab. -Patient is stable from orthopedic standpoint for discharge. -We will discuss with attending, Dr. Fischer Orders: tiZANidine(tiZANidine 2 mg oral capsule), 2 mg= 1 cap(s), Oral, q8h Bedside Commode (CS supply)(BS (CS Supply)), 08/19/24 11:17:00 EST, Up to 300 lbs (136 kg), Weight(kg) 78.2, Quantity 1 Digitally Signed by MIKAELA DE LA GARZA DO on 08/20/2024 05:26 AM Digitally Signed by MANDO FISCHER DO on 08/22/2024 08:05 AM [id number] Note Date of Service 08/19/2024 Chief Complaint Neck pain Subjective Patient seen and examined at the bedside. He is tolerating oral intake. No chest pain, shortness ofbreath. On baseline level. Objective Vitals and Measurements T: 36.5 C (Oral) TMIN: 36.2 C (Temporal Artery) TMAX: 37.3 C HR: 72 RR: 18 BP: 104/61 BP: 95/57(Line) SpO2: 95% HT: 175.3 cm WT: 78.2 kg BMI: 25.45 Intake and Output 7AM Yesterday to 7AM Today Intake and Output (Last 24 hours) Intake Oral Intake 800.00 Administration Information 1225.92 Output Urine Voided 410.00 Intra-Op EBL 50.00 Total Summary Total Intake Total Output 460.00 Fluid Balance 5.92 Physical Exam Physical Exam General: Alert, appropriate and awake, oriented to time, people and place Skin: No rash. Warm, Dry, Intact HEENT: Head is normocephalic and atraumatic. No lesions. Pupils equal in size. Extraocular movements within normal limits. Nose: No septal deviation. Mouth: Oropharynx mucosa is without lesion. Neck: Supple. No lymphadenopathy, thyromegaly noted. Lungs: Bilaterally clear/diminished breath sounds with no crepitation or wheeze. Unlabored Cardiovascular: Heart is regular rhythm, S1S2, No extra-audible heart tones Abdomen: Abdomen is soft, nontender. Bowel sounds positive all four quadrants. Extremities: No clubbing, cyanosis or edema. Peripheral pulses palpable. No calf tenderness. Adequate peripheral circulation. Neurological: Following simple commands, moving all extremities. Weight Dosing Weight: 78.2 kg (08/18/24) Dosing Weight: 78.2 kg (08/18/24) Medications Medications (17) Active Scheduled: (10) albuterol - ipratropium 2.5 mg-0.5 mg/3 mL Inhal Barbara UD 3 mL, Inhalation, TIDRT atorvastatin 80 mg tablet 80 mg 1 tab(s), Oral, qAM budesonide 0.5 mg/2 mL Susp UD 0.5 mg 2 mL, Inhalation, BIDRT busPIRone 7.5 mg tablet 7.5 mg 1 tab(s), Oral, BID carvedilol 6.25 mg tablet 6.25 mg 1 tab(s), Oral, BIDM famotidine 20 mg tablet 20 mg 1 tab(s), Oral, qDay gabapentin 300 mg Capsule 300 mg 1 cap(s), Oral, qHS lisinopril 5 mg tablet 5 mg 1 tab(s), Oral, qAM mirtazapine 30 mg tablet 30 mg 1 tab(s), Oral, qHS pantoprazole 40 mg EC tablet 40 mg 1 tab(s), Oral, qDayAC Continuous: (0) PRN: (7) acetaminophen 325 mg Tablet 650 mg 2 tab(s), Oral, q6h acetaminophen 325 mg Tablet 650 mg 2 tab(s), Oral, q4h acetaminophen-OXYcodone 325 mg-5 mg Tablet 2 tab(s), Oral, q4h cyclobenzaprine 10 mg Tablet 10 mg 1 tab(s), Oral, q8h dextrose 50% Solution Disp syringe 50 mL 12.5 gram(s) 25 mL, IV Push, AsDirected ondansetron 2 mg/ 1 mL 2 mL INJ 4 mg 2 mL, IV Push, q4h polyethylene glycol 3350 - UD packet 17 gram(s) 15 mL, Oral, qDay Lab Results 08/19 04:17 WBC: 9.3 Hgb: 13.5 Hct: 39.4 L Platelet: 242 Neutrophil %: 85.4 H 08/18 10:32 Platelet: 269 Protime: 10.8 PT International Ratio: 0.9 EKG No qualifying data available. Assessment/Plan Cervical spondylosis with myelopathy Chronic hypoxic respiratory failure COPD History of CAD GERD Anxiety/depression Status post cervical discectomy and fusion, management per primary team Wears 2 L of oxygen at baseline, currently at baseline. Does have a history of COPD with no currentexacerbation History of CAD, status post PCI in January of this year. 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 Continue dual antiplatelet when okay with primary team GERD, continue PPI Continue [facility] pain Hospitalist team will sign off, discussed with Dr. Silvestre. Time Spent Total time spent reviewing labs, diagnostics, evaluating the patient, and medical decision makin minutes Digitally Signed by CAROLE FITZGERALD on 08/19/2024 11:57 AM [id number] Note Date of Service 08/19/2024 Chief Complaint Neck pain Subjective Patient seen and examined at the bedside. He is tolerating oral intake. No chest pain, shortness ofbreath. On baseline level. Objective Vitals and Measurements T: 36.5 C (Oral) TMIN: 36.2 C (Temporal Artery) TMAX: 37.3 C HR: 72 RR: 18 BP: 104/61 BP: 95/57(Line) SpO2: 95% HT: 175.3 cm WT: 78.2 kg BMI: 25.45 Intake and Output 7AM Yesterday to 7AM Today Intake and Output (Last 24 hours) Intake Oral Intake 800.00 Administration Information 1225.92 Output Urine Voided 410.00 Intra-Op EBL 50.00 Total Summary Total Intake Total Output 460.00 Fluid Balance 5.92 Physical Exam Physical Exam General: Alert, appropriate and awake, oriented to time, people and place Skin: No rash. Warm, Dry, Intact HEENT: Head is normocephalic and atraumatic. No lesions. Pupils equal in size. Extraocular movements within normal limits. Nose: No septal deviation. Mouth: Oropharynx mucosa is without lesion. Neck: Supple. No lymphadenopathy, thyromegaly noted. Lungs: Bilaterally clear/diminished breath sounds with no crepitation or wheeze. Unlabored Cardiovascular: Heart is regular rhythm, S1S2, No extra-audible heart tones Abdomen: Abdomen is soft, nontender. Bowel sounds positive all four quadrants. Extremities: No clubbing, cyanosis or edema. Peripheral pulses palpable. No calf tenderness. Adequate peripheral circulation. Neurological: Following simple commands, moving all extremities. Weight Dosing Weight: 78.2 kg (08/18/24) Dosing Weight: 78.2 kg (08/18/24) Medications Medications (17) Active Scheduled: (10) albuterol - ipratropium 2.5 mg-0.5 mg/3 mL Inhal Barbara UD 3 mL, Inhalation, TIDRT atorvastatin 80 mg tablet 80 mg 1 tab(s), Oral, qAM budesonide 0.5 mg/2 mL Susp UD 0.5 mg 2 mL, Inhalation, BIDRT busPIRone 7.5 mg tablet 7.5 mg 1 tab(s), Oral, BID carvedilol 6.25 mg tablet 6.25 mg 1 tab(s), Oral, BIDM famotidine 20 mg tablet 20 mg 1 tab(s), Oral, qDay gabapentin 300 mg Capsule 300 mg 1 cap(s), Oral, qHS lisinopril 5 mg tablet 5 mg 1 tab(s), Oral, qAM mirtazapine 30 mg tablet 30 mg 1 tab(s), Oral, qHS pantoprazole 40 mg EC tablet 40 mg 1 tab(s), Oral, qDayAC Continuous: (0) PRN: (7) acetaminophen 325 mg Tablet 650 mg 2 tab(s), Oral, q6h acetaminophen 325 mg Tablet 650 mg 2 tab(s), Oral, q4h acetaminophen-OXYcodone 325 mg-5 mg Tablet 2 tab(s), Oral, q4h cyclobenzaprine 10 mg Tablet 10 mg 1 tab(s), Oral, q8h dextrose 50% Solution Disp syringe 50 mL 12.5 gram(s) 25 mL, IV Push, AsDirected ondansetron 2 mg/ 1 mL 2 mL INJ 4 mg 2 mL, IV Push, q4h polyethylene glycol 3350 - UD packet 17 gram(s) 15 mL, Oral, qDay Lab Results 08/19 04:17 WBC: 9.3 Hgb: 13.5 Hct: 39.4 L Platelet: 242 Neutrophil %: 85.4 H 08/18 10:32 Platelet: 269 Protime: 10.8 PT International Ratio: 0.9 EKG No qualifying data available. Assessment/Plan Cervical spondylosis with myelopathy Chronic hypoxic respiratory failure COPD History of CAD GERD Anxiety/depression Status post cervical discectomy and fusion, management per primary team Wears 2 L of oxygen at baseline, currently at baseline. Does have a history of COPD with no currentexacerbation History of CAD, status post PCI in January of this year. 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 Continue dual antiplatelet when okay with primary team GERD, continue PPI Continue [facility] pain Hospitalist team will sign off, discussed with Dr. Silvestre. Time Spent Total time spent reviewing labs, diagnostics, evaluating the patient, and medical decision makin minutes Digitally Signed by CAROLE FITZGERALD on 08/19/2024 11:57 AM [id number] Hospital Progress note Respiratory Therapy Evaluation Entered On: 08/19/2024 10:02 EST Performed On: 08/21/2024 9:20 EST by Cheli Good RT Respiratory Therapy Evaluation Pulmonary Status : Severe or exacerbated lung disease or acute pulmonary process Chest X-Ray : Clear/none available/older than 3 days Respiratory Pattern (RT) : RR 10-20 BPM, Regular pattern Breath Sounds (RT) : Diminished due to poor inspiratory effort Cough (RT) : Weak, non-productive Level of Activity : Ambulatory with assistance Mental Status : Alert, oriented and cooperative Respiratory Therapy Evaluation Score : 8 RT Evaluation Steps : Chart review completed, Assessment completed: RR, HR, Auscultation, Cough, Patient Interview completed Respiratory Evaluation Triage Score : (6-10) Freq: TIDRT & Albuterol Q2hRT prn RT Assessment [Frequency/Schedule] : Change medication frequency to home regimen (Comment: TIDRT HOME REGIMENT [EMMA Peoples - 08/21/2024 9:20 EST] ) Surgical Status : No surgery EMMA Peoples - 08/21/2024 9:21 EST Digitally Signed by Cheli Good RT on 08/19/2024 10:03 AM Digitally Signed by EMMA Peoples RRT on 08/21/2024 09:20 AM [id number] Orthopaedic surgery Progress note Date of Service 08/19/2024 Subjective Patient seen and examined at bedside. There were no acute events overnight. Patient reports that heis having some mild numbness and tingling about his bilateral upper extremities, with the left being worse than the right. He states that his somewhat improved from before surgery however. He is alsoreporting to be at his baseline motor function with both his upper and lower extremities. 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 He is unable to recover some of this function, but it is still deficient. Objective Vitals and Measurements T: 36.7 C (Oral) TMIN: 36.2 C (Temporal Artery) TMAX: 37.3 C HR: 73 RR: 18 BP: 97/66 BP: 95/57(Line) SpO2: 94% HT: 175.3 cm WT: 78.2 kg BMI: 25.45 Intake and Output 7AM Yesterday to 7AM Today Intake and Output (Last 24 hours) Intake Oral Intake 480.00 Administration Information 1225.92 Output Urine Voided 0.00 Intra-Op EBL 50.00 Total Summary Total Intake 1705.92 Total Output 50.00 Fluid Balance 1655.92 Physical Exam Spine exam: Incision is intact with minimal drainage. No signs of infection. Drain in place. Mild numbness about the lateral aspect of the left arm. Normal sensation otherwise to left upper extremity. Sensation intact to light touch C5-T1 on the right upper extremity. Motor function to AIN, PIN, ulnar nerve somewhat diminished on bilateral upper extremities, with the left worse than the right. Radial pulse palpable bilaterally Lower extremity: Skin is intact. Sensation intact to light touch L3-S1 Gross motor function to EHL/FHL, plantar/dorsiflexion, knee flexion/extension, hip flexion/extension. There is still weakness bilaterally, with the left worse than right. DP and PT pulses palpable Compartments are soft and compressible No calf tenderness bilaterally Weight Dosing Weight: 78.2 kg (08/18/24) Dosing Weight: 78.2 kg (08/18/24) Medications Medications (17) Active Scheduled: (10) albuterol - ipratropium 2.5 mg-0.5 mg/3 mL Inhal Barbara UD 3 mL, Inhalation, QIDRT atorvastatin 80 mg tablet 80 mg 1 tab(s), Oral, qAM budesonide 0.5 mg/2 mL Susp UD 0.5 mg 2 mL, Inhalation, BIDRT busPIRone 7.5 mg tablet 7.5 mg 1 tab(s), Oral, BID carvedilol 6.25 mg tablet 6.25 mg 1 tab(s), Oral, BIDM famotidine 20 mg tablet 20 mg 1 tab(s), Oral, qDay gabapentin 300 mg Capsule 300 mg 1 cap(s), Oral, qHS lisinopril 5 mg tablet 5 mg 1 tab(s), Oral, qAM mirtazapine 30 mg tablet 30 mg 1 tab(s), Oral, qHS pantoprazole 40 mg EC tablet 40 mg 1 tab(s), Oral, qDayAC Continuous: (0) PRN: (7) acetaminophen 325 mg Tablet 650 mg 2 tab(s), Oral, q6h acetaminophen 325 mg Tablet 650 mg 2 tab(s), Oral, q4h acetaminophen-OXYcodone 325 mg-5 mg Tablet 2 tab(s), Oral, q4h cyclobenzaprine 10 mg Tablet 10 mg 1 tab(s), Oral, q8h dextrose 50% Solution Disp syringe 50 mL 12.5 gram(s) 25 mL, IV Push, AsDirected ondansetron 2 mg/ 1 mL 2 mL INJ 4 mg 2 mL, IV Push, q4h polyethylene glycol 3350 - UD packet 17 gram(s) 15 mL, Oral, qDay Lab Results 08/19 04:17 WBC: 9.3 Hgb: 13.5 Hct: 39.4 L Platelet: 242 Neutrophil %: 85.4 H 08/18 10:32 Platelet: 269 Protime: 10.8 PT International Ratio: 0.9 EKG No qualifying data available. Assessment/Plan Cervical spondylosis with myelopathy Postoperative day # 1 from a ACDF to C3-C4, C6-C7 with interbody fusion cages and anterior plate fixation -PT/OT: To evaluate and treat -Home aspirin and SCDs for DVT prophylaxis -Post op Hgb is 13.5 -Maintain dressing, reinforce as needed. May change if oversaturated. Will replace dressing with Aquacel prior to discharge. -Finish 24-hour postop course of antibiotics today -Medical management per hospitalist service -Case management consulted for discharge planning -We will discuss with attending, Dr. Fischer Orders: acetaminophen(Tylenol), 650 mg= 2 tab(s), Oral, q4h, PRN acetaminophen(Tylenol), 650 mg= 2 tab(s), Oral, q6h, PRN acetaminophen-oxyCODONE(Percocet 325/5), 2 tab(s), Oral, q4h, PRN cyclobenzaprine(cyclobenzaprine 10 mg oral tablet), 10 mg= 1 tab(s), Oral, q8h, PRN famotidine(Pepcid), 20 mg= 1 tab(s), Oral, qDay glucose(Dextrose 50% IV Push), 12.5 gram(s)= 25 mL, IV Push, AsDirected, PRN ondansetron(Zofran), 4 mg= 2 mL, IV Push, q4h, PRN polyethylene glycol 3350(Miralax Powder Packet), 17 gram(s)= 15 mL, Oral, qDay, PRN Ambulate, 08/18/24 18:15:00 EST, TID, In halls with assistance if needed Antiembolism Stocking Application Knee High, 08/18/24 17:34:00 EST, q4h, Bilateral Lower Extremities Assign to Observation status, 08/18/24 18:15:00 EST, Level of Care: Regular floor, Reason for Admission: See History & Physical, I certify that hospital services are medically necessary. At this time I do not anticipate a two midnight stay., Constant Order Blood Glucose Call Parameter, 08/18/24 18:15:00 EST, call provider if patient's blood glucose is <70mg/dL, Constant order Blood Glucose Call Parameter, 08/18/24 18:15:00 EST, If patient is NPO for x-ray or surgery and hypoglycemic, call physician for further orders, Constant order Code Status, 08/18/24 18:15:00 EST, Full Code, Patient, Constant Order Communication Order (continuous), 08/18/24 18:15:00 EST, Stat EKG will be obtained in the setting of new, ongoing or worsening chest discomfort/acute coronary syndrome symptoms in all nursing units and/or rhythm change in all monitored units., Constant order Consult to Physician, 08/18/24 18:15:00 EST, HOSPITALISTJUAN (For Consultation Assignment OnlyNO other Orders), Routine, Routine care if PCP does not come to hospital. Diet Order, 08/18/24 18:15:00 EST, Start Meal: Next meal, Regular, Constant Order, : N/A, : N/A Incentive Spirometer, 08/18/24 18:15:00 EST, [id number], reinstruct patient on use every shift Intake and Output, 08/18/24 18:15:00 EST, q8h (2p, 10p, 6a) Neurological Check, 08/18/24 18:34:00 EST, q30min Neurovascular Check lower extremity, 08/18/24 18:15:00 EST, q4h, 24 hour(s), 08/19/24 18:00:00 EST,then q shift Neurovascular Check lower extremity, 08/19/24 18:15:00 EST, qShift Neurovascular Check upper extremity, 08/18/24 18:15:00 EST, q4h, 24 hour(s), 08/19/24 18:00:00 EST,then q shift Neurovascular Check upper extremity, 08/19/24 18:15:00 EST, qShift SCIP Contraindication to VTE Pharmacological Prophylaxis, Bleeding risk Sequential Compression Device Application(SCD Application), 08/18/24 17:34:00 EST, Knee high, q4h, Bilateral Soft Cervical Collar Application(Cervical Collar - Soft Application), 08/18/24 18:15:00 EST, Check:qShift, as needed for comfort Vital Signs, 08/18/24 18:34:00 EST, q30min Vital Signs, 08/18/24 18:15:00 EST, q4hr, 24 hour(s), 08/19/24 15:00:00 EST, BP, pulse, respirations, temperature Vital Signs, 08/19/24 18:15:00 EST, q8hr, BP, pulse, respirations, temperature Digitally Signed by MIKAELA DE LA GARZA DO on 08/19/2024 05:31 AM [id number] Orthopaedic surgery Progress note Date of Service 08/19/2024 Subjective Patient seen and examined at bedside. There were no acute events overnight. Patient reports that heis having some mild numbness and tingling about his bilateral upper extremities, with the left being worse than the right. He states that his somewhat improved from before surgery however. He is alsoreporting to be at his baseline motor function with both his upper and lower extremities. 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 He is unable to recover some of this function, but it is still deficient. Objective Vitals and Measurements T: 36.7 C (Oral) TMIN: 36.2 C (Temporal Artery) TMAX: 37.3 C HR: 73 RR: 18 BP: 97/66 BP: 95/57(Line) SpO2: 94% HT: 175.3 cm WT: 78.2 kg BMI: 25.45 Intake and Output 7AM Yesterday to 7AM Today Intake and Output (Last 24 hours) Intake Oral Intake 480.00 Administration Information 1225.92 Output Urine Voided 0.00 Intra-Op EBL 50.00 Total Summary Total Intake 1705.92 Total Output 50.00 Fluid Balance 1655.92 Physical Exam Spine exam: Incision is intact with minimal drainage. No signs of infection. Drain in place. Mild numbness about the lateral aspect of the left arm. Normal sensation otherwise to left upper extremity. Sensation intact to light touch C5-T1 on the right upper extremity. Motor function to AIN, PIN, ulnar nerve somewhat diminished on bilateral upper extremities, with the left worse than the right. Radial pulse palpable bilaterally Lower extremity: Skin is intact. Sensation intact to light touch L3-S1 Gross motor function to EHL/FHL, plantar/dorsiflexion, knee flexion/extension, hip flexion/extension. There is still weakness bilaterally, with the left worse than right. DP and PT pulses palpable Compartments are soft and compressible No calf tenderness bilaterally Weight Dosing Weight: 78.2 kg (08/18/24) Dosing Weight: 78.2 kg (08/18/24) Medications Medications (17) Active Scheduled: (10) albuterol - ipratropium 2.5 mg-0.5 mg/3 mL Inhal Barbara UD 3 mL, Inhalation, QIDRT atorvastatin 80 mg tablet 80 mg 1 tab(s), Oral, qAM budesonide 0.5 mg/2 mL Susp UD 0.5 mg 2 mL, Inhalation, BIDRT busPIRone 7.5 mg tablet 7.5 mg 1 tab(s), Oral, BID carvedilol 6.25 mg tablet 6.25 mg 1 tab(s), Oral, BIDM famotidine 20 mg tablet 20 mg 1 tab(s), Oral, qDay gabapentin 300 mg Capsule 300 mg 1 cap(s), Oral, qHS lisinopril 5 mg tablet 5 mg 1 tab(s), Oral, qAM mirtazapine 30 mg tablet 30 mg 1 tab(s), Oral, qHS pantoprazole 40 mg EC tablet 40 mg 1 tab(s), Oral, qDayAC Continuous: (0) PRN: (7) acetaminophen 325 mg Tablet 650 mg 2 tab(s), Oral, q6h acetaminophen 325 mg Tablet 650 mg 2 tab(s), Oral, q4h acetaminophen-OXYcodone 325 mg-5 mg Tablet 2 tab(s), Oral, q4h cyclobenzaprine 10 mg Tablet 10 mg 1 tab(s), Oral, q8h dextrose 50% Solution Disp syringe 50 mL 12.5 gram(s) 25 mL, IV Push, AsDirected ondansetron 2 mg/ 1 mL 2 mL INJ 4 mg 2 mL, IV Push, q4h polyethylene glycol 3350 - UD packet 17 gram(s) 15 mL, Oral, qDay Lab Results 08/19 04:17 WBC: 9.3 Hgb: 13.5 Hct: 39.4 L Platelet: 242 Neutrophil %: 85.4 H 08/18 10:32 Platelet: 269 Protime: 10.8 PT International Ratio: 0.9 EKG No qualifying data available. Assessment/Plan Cervical spondylosis with myelopathy Postoperative day # 1 from a ACDF to C3-C4, C6-C7 with interbody fusion cages and anterior plate fixation -PT/OT: To evaluate and treat -Home aspirin and SCDs for DVT prophylaxis -Post op Hgb is 13.5 -Maintain dressing, reinforce as needed. May change if oversaturated. Will replace dressing with Aquacel prior to discharge. -Finish 24-hour postop course of antibiotics today -Medical management per hospitalist service -Case management consulted for discharge planning -We will discuss with attending, Dr. Fischer Orders: acetaminophen(Tylenol), 650 mg= 2 tab(s), Oral, q4h, PRN acetaminophen(Tylenol), 650 mg= 2 tab(s), Oral, q6h, PRN acetaminophen-oxyCODONE(Percocet 325/5), 2 tab(s), Oral, q4h, PRN cyclobenzaprine(cyclobenzaprine 10 mg oral tablet), 10 mg= 1 tab(s), Oral, q8h, PRN famotidine(Pepcid), 20 mg= 1 tab(s), Oral, qDay glucose(Dextrose 50% IV Push), 12.5 gram(s)= 25 mL, IV Push, AsDirected, PRN ondansetron(Zofran), 4 mg= 2 mL, IV Push, q4h, PRN polyethylene glycol 3350(Miralax Powder Packet), 17 gram(s)= 15 mL, Oral, qDay, PRN Ambulate, 08/18/24 18:15:00 EST, TID, In halls with assistance if needed Antiembolism Stocking Application Knee High, 08/18/24 17:34:00 EST, q4h, Bilateral Lower Extremities Assign to Observation status, 08/18/24 18:15:00 EST, Level of Care: Regular floor, Reason for Admission: See History & Physical, I certify that hospital services are medically necessary. At this time I do not anticipate a two midnight stay., Constant Order Blood Glucose Call Parameter, 08/18/24 18:15:00 EST, call provider if patient's blood glucose is <70mg/dL, Constant order Blood Glucose Call Parameter, 08/18/24 18:15:00 EST, If patient is NPO for x-ray or surgery and hypoglycemic, call physician for further orders, Constant order Code Status, 08/18/24 18:15:00 EST, Full Code, Patient, Constant Order Communication Order (continuous), 08/18/24 18:15:00 EST, Stat EKG will be obtained in the setting of new, ongoing or worsening chest discomfort/acute coronary syndrome symptoms in all nursing units and/or rhythm change in all monitored units., Constant order Consult to Physician, 08/18/24 18:15:00 EST, HOSPITALISTJUAN (For Consultation Assignment OnlyNO other Orders), Routine, Routine care if PCP does not come to hospital. Diet Order, 08/18/24 18:15:00 EST, Start Meal: Next meal, Regular, Constant Order, : N/A, : N/A Incentive Spirometer, 08/18/24 18:15:00 EST, [id number], reinstruct patient on use every shift Intake and Output, 08/18/24 18:15:00 EST, q8h (2p, 10p, 6a) Neurological Check, 08/18/24 18:34:00 EST, q30min Neurovascular Check lower extremity, 08/18/24 18:15:00 EST, q4h, 24 hour(s), 08/19/24 18:00:00 EST,then q shift Neurovascular Check lower extremity, 08/19/24 18:15:00 EST, qShift Neurovascular Check upper extremity, 08/18/24 18:15:00 EST, q4h, 24 hour(s), 08/19/24 18:00:00 EST,then q shift Neurovascular Check upper extremity, 08/19/24 18:15:00 EST, qShift SCIP Contraindication to VTE Pharmacological Prophylaxis, Bleeding risk Sequential Compression Device Application(SCD Application), 08/18/24 17:34:00 EST, Knee high, q4h, Bilateral Soft Cervical Collar Application(Cervical Collar - Soft Application), 08/18/24 18:15:00 EST, Check:qShift, as needed for comfort Vital Signs, 08/18/24 18:34:00 EST, q30min Vital Signs, 08/18/24 18:15:00 EST, q4hr, 24 hour(s), 08/19/24 15:00:00 EST, BP, pulse, respirations, temperature Vital Signs, 08/19/24 18:15:00 EST, q8hr, BP, pulse, respirations, temperature Digitally Signed by MIKAELA DE LA GARZA DO on 08/19/2024 05:31 AM [id number] Note Date of Service 08/18/2024 Reason for Consultation Medical management Referring Physician Dr. Fischer History of Present Illness 69-year-old male past medical history significant for anxiety, arthritis, CAD, cervical spondylosiswith myelopathy, COPD [wears 2L O2 at night], COVID-19, GERD, hypercholesterolemia, hypertension, lung nodule, CA [stents placed 02/05/2024], TIA and tobacco abuse. Patient has been following with for his significant cervical spine disease and was planning for surgical intervention approximately 6 months ago, but this was cancelled since the patient required dual antiplatelet therapy after suffering a myocardial infarction. 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 [facility] anterior cervical discectomy and fusion of C3-4, C4-5, and C6-7 with interbody fusion cages and anterior plate fixation with Dr. Fischer. Hospitalist services are being consulted to assist with medical management. Patient states he had a stroke workup completed at [facility] in September 2023 afterdeveloping left-sided weakness after undergoing a lung biopsy. Diagnostic testing at that time was negative for acute stroke. His symptoms were attributed to cervical compression and he was told to follow-up with Dr. Fischer at that time. Preoperative lab work from 08/04/2024 was personally reviewed. Patient is a poor historian. Upon physical examination, patient states he is experiencing postoperative pain at procedure site. He also complains of left arm and leg weakness and paresthesias, but per documentation, this was the etiology for the surgical intervention today. Patient denies headache, blurred vision, chills, nausea, vomiting, chest pain, shortness of breath, abdominal pain, diarrhea, or constipation. He is maintaining adequate oxygen saturations on 3L nasal cannula. Vital signs are stable. Patient does wear 2L nasal cannula at bedtime at home. Denies history of ANITA or CPAP use. Patient states he was a former smokerof 1.5 ppd, but quit approximately 6 months ago. He denies alcohol, illicit drug use or medical marijuana use. Review of Systems I reviewed constitutional, HEENT, cardiovascular, respiratory, GI, , skin, musculoskeletal, neurologic, hematologic, and psychiatric. All systems reviewed and are negative except as noted above in the HPI Physical Exam Vitals and Measurements T: 36.6 C (Oral) TMIN: 36.2 C (Temporal Artery) TMAX: 37.3 C HR: 81 RR: 18 BP: 134/82 BP: 95/57(Line) SpO2: 95% HT: 175.3 cm WT: 78.2 kg BMI: 25.45 Weight Dosing Weight: 78.2 kg (08/18/24) Dosing Weight: 78.2 kg (08/18/24) Physical Exam General: Alert and oriented. Calm and cooperative. Does not appear to be in any acute distress. Skin: [place], warm, dry, intact and normal for ethnicity. HEENT: Head is normocephalic and atraumatic. PERRLA. Extraocular movements grossly intact; conjunctiva is pink and moist. No visible drainage, inflammation, or erythema of oropharynx; oral mucosa is pink and moist. Trachea is midline. Cardiovascular: Regular rate and rhythm. No murmur, gallop, or rub. Normal S1 and S2. Absence of JVD. Respiratory: Lungs clear to auscultation bilaterally in all lobes, posteriorly and anteriorly. No presence of adventitious sounds. Gastrointestinal/Abdominal: Bowel sounds present in all 4 quadrants. Abdomen is soft, nontender andnondistended. Extremities: No clubbing, cyanosis or edema. Peripheral pulses palpable. No calf tenderness. Neurological: Following simple commands, moving all extremities. Left upper and lower extremity strength weaker than right upper and lower extremity strength. Lab Results 08/18 10:32 Platelet: 269 Protime: 10.8 PT International Ratio: 0.9 Assessment/Plan Cervical spondylosis with myelopathy History of COPD Risk for ANITA History of CA Lung nodule History of hypercholesterolemia History of GERD History of anxiety/depression Cervical spondylosis with myelopathy -Status post anterior cervical discectomy and fusion of C3-4, C4-5, and C6-[address] Fischer -Management per primary team -Continue current pain regimen -Incentive spirometer q1hWA History of COPD -Wears 2L nasal cannula at bedtime -Denies shortness of breath or wheezing -Reports a chronic cough with clear sputum production -PFTs completed 04/18/24 demonstrated FEV1 60% -Wean oxygen to maintain saturations >92% -Continue home inhalers Risk for ANITA -Patient states he snores very loudly at night and feels fatigued during the day -ETCO2 measurements are within normal range, but will continue ETCO2 monitoring overnight -Encouraged patient to follow-up with PCP outpatient to discuss completing a sleep study History of CA -Patient has been off dual antiplatelet therapy x6 months -He is to follow-up with cardiology outpatient to discuss restarting Plavix and Aspirin postoperatively -Continue Coreg Lung nodule -Follows with pulmonary outpatient -Continue surveillance with pulmonary All other chronic conditions are stable. Continue home medications. DVT and pain prophylaxis per primary team Labs and diagnostics as noted in HPI Thank you for requesting our participation in the care of your patient. We will continue to follow during hospitalization. 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 Spinal stenosis at L4-L5 level Stented coronary artery Historical Chest pain Procedure/Surgical History Cardiac catheterization: 01/2024 Biopsy of lun12/2023 Cardiac catheterization: 2008 Microdiscectomy: 1996 Medications Inpatient atorvastatin, 80 mg= 1 tab(s), Oral, qAM busPIRone, 7.5 mg= 1 tab(s), Oral, BID carvedilol 6.25 mg oral tablet, 6.25 mg= 1 tab(s), Oral, BIDM cyclobenzaprine 10 mg oral tablet, 10 mg= 1 tab(s), Oral, q8h, PRN Dextrose 50% IV Push, 12.5 gram(s)= 25 mL, IV Push, AsDirected, PRN DuoNeb 0.5 mg - 2.5 mg/3 mL inhalation soln, 3 mL, Inhalation, QIDRT gabapentin, 300 mg= 1 cap(s), Oral, qHS lisinopril, 5 mg= 1 tab(s), Oral, qAM Miralax Powder Packet, 17 gram(s)= 15 mL, Oral, qDay, PRN mirtazapine, 30 mg= 1 tab(s), Oral, qHS Pepcid, 20 mg= 1 tab(s), Oral, qDay Percocet 325/5, 2 tab(s), Oral, q4h, PRN Protonix, 40 mg= 1 tab(s), Oral, qDayAC Pulmicort Respules 0.5 mg/2 mL inhalation suspension, 0.5 mg= 2 mL, Inhalation, BIDRT Tylenol, 650 mg= 2 tab(s), Oral, q6h, PRN Tylenol, 650 mg= 2 tab(s), Oral, q4h, PRN Zofran, 4 mg= 2 mL, IV Push, q4h, PRN Home aspirin 81 mg oral delayed release tablet, 81 mg= 1 tab(s), Oral, Daily, On hold for Surgery atorvastatin 80 mg oral tablet, 80 mg= 1 tab(s), Oral, qAM busPIRone 7.5 mg oral tablet, 7.5 mg= 1 tab(s), Oral, BID carvedilol 6.25 mg oral tablet, 6.25 mg= 1 tab(s), Oral, BID clopidogrel 75 mg oral tablet, 75 mg= 1 tab(s), Oral, qDay, On hold for Surgery gabapentin 300 mg oral capsule, 300 mg= 1 cap(s), Oral, qHS lisinopril 5 mg oral tablet, 5 mg= 1 tab(s), Oral, qAM mirtazapine 30 mg oral tablet, 30 mg= 1 tab(s), Oral, qHS mupirocin 2% topical ointment, 1 lino, Topical, BID Protonix 40 mg oral enteric coated tablet, 40 mg= 1 tab(s), Oral, qDayAC, 6 refills Trelegy Ellipta 200 mcg-62.5 mcg-25 mcg/inh inhalation powder, 1 inh, Inhalation, 12 (noon) Allergies NKA Social History Smoking Status - 04/24/2015 Current every day smoker Alcohol - Denies Alcohol Use, 09/06/2018 Use: Never., 11/29/2023 Home/Environment Living situation: Home/Independent. Domestic Concerns: None. Lives In: Single level home. Current Home Treatments Oxygen therapy, walker. Professional Skilled Services or Special Community Resources None. Marital Status: ., 08/04/2024 Sexual - No Risk, 09/06/2018 Substance Abuse - Denies Substance Abuse, 09/06/2018 Use: Never., 11/29/2023 Tobacco - High Risk, 09/06/2018 Nicotine Use: Former smoker, quit more than 30 days ago. Type: Cigarettes. Started at age: 8 Years.Stopped at age: 68 Years., 08/04/2024 Family History Cancer: Mother and Father. Diabetes mellitus: Mother. HTN - Hypertension: Mother. Heart disease: Mother, Father and Brother. Health Status Family Member(s) Immunizations pneumococcal 23-valent vaccine(Pneumovax: 0.5 unknown unit (03/09/20) pneumococcal 23-valent vaccine(Pneumovax: 0.5 mL (04/07/10) tetanus/diphth/pertuss (Tdap) adult/adol: 0 unknown unit (04/20/16) Digitally Signed by KALE SHAIKH on 08/19/2024 04:03 AM [id number] An[facility]iology Consult note Patient: SARTHAK PUTNAM JR Age: 69 years Sex: Male : 1955 Associated Diagnoses: None Author: TOMMY REYES DO Postoperative Information Post Operative Info: Post op day: Post Anesthesia Care Unit. Patient location: PACU. Assessment Postanesthesia assessment Vitals. Mental status: at preoperative baseline. Respiratory function: respirations are non-labored, Stable. Respiratory support: none. CV function: Stable. Cardiovascular support: none. Pain: Satisfactory. Nausea status: Satisfactory. Postoperative hydration status: within normal limits. Notes: Patient is sufficiently recovered from anesthesia to participate in the evaluation. No follow-up care needed. No complications post-anesthesia.. Digitally Signed by TOMMY REYES DO on 08/18/2024 06:10 PM [id number] Note ORIGINAL EXAMINATION: SPOT FLUOROSCOPIC IMAGES 08/18/2024 5:23 pm TECHNIQUE: Fluoroscopy was provided by the radiology department for procedure. Radiologist was not present during examination. FLUOROSCOPY DOSE AND TYPE: Radiation Exposure Index: Referenced air kerma, 0.993 mGy COMPARISON: None HISTORY: ORDERING SYSTEM PROVIDED HISTORY: Reason for Exam: ACDF C3-4-5-6-7 Intraprocedural imaging. FINDINGS: Spot intraoperative images are obtained demonstrating ACDF of the lower cervical spine. IMPRESSION: Intraprocedural fluoroscopic spot images as above. See separate procedure report for more information. I have personally reviewed the images of this examination and agree with the resident's findings and interpretation. Interpreted by: David Lundy Preliminary Report By: Pedro Luis Sullivan Electronically signed By David Lundy Dictated Date: 08/18/2024 6:25:24 PM Prelim Date: 08/18/2024 6:26:25 PM Sign Date: 08/18/2024 6:39:29 PM Ordering Provider: [facility] [id number] Evaluation + Plan noteExtracted from: Title:Pre-op H&P Author:MANDO FISCHER DO Da te:08/18/24 1. Cervical spondylosis with myelopathy The cervical MRI shows significant stenosis with associated myelomalacia at C3- C4, C6-C7. At C5-C6 there is myelomalacia with less stenosis. This may represent a remote traumatic injury with autofusion at this disc. There is also infolding of the ligamentum flavum at C3-C4 and C6-C7. The cervical stenosis is his most significant problem at this time. My recommendation is for anterior cervical discectomy and fusion at C3-C4 and C6-C7 and possible C5-C6. He understands that he must stop smoking to optimize this surgery. We discussed surgical and non-surgical treatment options. I offered ACDF with interbody fusion cage and anterior plate fixation C3-C4, C6-C7, possible C5-C6. We discussed the pros and cons of surgical intervention. We also discussed the potential risk, benefits and complications of surgery, which include but are not limited to , bleeding, infection, neurologic injury, blood clots, persistent pain and paralysis, the patient. We also discussed the potential risks and complications that are unique to this surgery which include injury to trachea, esophagus, carotid sheath and its contents, and the recurrent laryngeal nerve. With this understanding, the patient wishes to proceed with the surgery as described. We also discussed the fact that we may need to do a posterior surgery if we are unable to decompress the spinal cord completely by an anterior approach. This would be determined following the anterior surgery. Hopefully the infolding of the ligamentum flavum will be resolved with distraction of the disc space at the time of the interbody fusion. Future Appointments Appointment Date:09/09/2024 11:00:00 AM Scheduled Provider:MANDO FISCHER DO Location:[facility] Appointment Type:OSM OV Post Op Future Scheduled Tests Radiology* MRI Spine Cervical w/o Contrast 10/15/23 [facility] 11-25-2024 Note History of Present Illness Sarthak presents today for ACDF C3-4, C4-5 and C6-7. Patient denies any injury/incident since last visit 04/29/24. Patient reports 0% improvement since last visit. We delayed his surgery at his last visit due to his need for Plavix at that time after coronary artery stent surgery. He was seen last at his [facility] office. He still c/o numbness/tingling bilateral arms, hands and legs, feet. He states he is not having anyactual pain. He states the numbness/tingling has worsened since last visit. He continues to be smoke free. Physical Exam Vitals and Measurements T: 36.2 C (Temporal Artery) HR: 68 RR: 16 BP: 146/89 SpO2: 95% HT: 175.3 cm WT: 78.2 kg Oxygen Therapy: Room air Primary Pain Intensity: 0 (08/18/24 10:44:00) Vitals and Measurements T: 26.6 C (Oral) BP: 148/82 HT: 175 cm WT: 75.1 kg BMI: 24.52 Detailed Back/Spine Exam General: Well-developed, well-nourished, in no acute distress; alert and oriented x 3. Gait: Patient ambulates without assistance, unsteady Skin: Intact with no erythema; no scarring. Inspection: Tricep atrophy, bilaterally. Cervical Exam: ROM: Restriction in flexion, extension and left rotation. Vascular: Pulses: Right: 2/4 Left: 2/4 Sensory: Decreased sensation C6, left Decreased sensation C7, right Motor : 3+/5 weakness of triceps, bilaterally Intrinsic weakness of the right hand Reflexes: Right: Brachioradialis: 2/4 Biceps: 2/4 Triceps: 3/4 Left Brachioradialis: 2/4 Biceps: 2/4 Triceps: 3/4 Shoulder Exam: Right: Inspection/Palpation: Normal elevation Full ROM Shoulder Impingement is Negative Left: Inspection/Palpation: Normal elevation Full ROM Shoulder Impingement is Negative Tinel's: Left - Positive Right - Positive Leon's: Right: positive Left: positive Imaging Results and Diagnostics Cervical spine x-rays performed in my office today were reviewed. The AP view shows normal alignment. The lateral view shows flattening the cervical lordosis C5-C6. There is either an autofusion or congenital lack of segmentation across C5-C6. There is advanced spondylosis at C6-C7. There is mild spondylosis C4-C5 with apparent ankylosis. There is advanced spondylosis at C3-C4. Swimmer's view shows the cervical thoracic junction to be unremarkable. Flexion and extension lateral x-ray demonstrates no instability. Impression: Autofusion or failure of segmentation C5-C6 Advanced multilevel cervical spondylosis An MRI of the cervical and lumbar spine performed at [facility] on November 12, 2023 was reviewed today. The cervical MRI shows advanced spondylosis at C3-C4 and C6-C7. There is evidence of a previous fusion at C5-C6. There are changes in the spinal cord at C3 3-4, C5-6, and C6-C7 consistent with myelomalacia versus edema. Axial imaging showsno compressive pathology at C2-C3. At C3-C4 there is severe stenosis secondary to disc osteophyte formation with an associated disc herniation resulting in severe compression of the spinal cord. At C4-C5 the spinal canal is mildly stenotic but the spinal cord is not compressed. At C5-C6 there is per sistent compression of the spinal cord at C6-C7 there is compression of spinal cord due to a combination of disc osteophyte formation and posterior ligamentum flavum infolding. C7-T1 is unremarkable. MRI of the lumbar spine performed November 12, 2023 was also reviewed. Sagittal imaging shows degenerative changes throughout the lumbar spine. There is mild lateral recess stenosis L5-S1. There is severe stenosis at L4-L5 secondary to facet hypertrophy and ligamentum flavum hypertrophy. There is moderate stenosis at L3-L4 secondary to facet hypertrophy and ligamentum flavum hypertrophy. There ismoderate stenosis at L2-L3 secondary to facet hypertrophy and ligamentum flavum hypertrophy. There is mild stenosis at L1-L2. There is no stenosis at T12-L1. Impression: Severe stenosis C3-C4, C5-C6, C6-C7 with myelomalacia at each level Lumbar spinal stenosis L4-L5, L3-L4, L2-L3 greater than L5-S1. Social History Smoking Status - 04/24/2015 Current every day smoker Alcohol - Denies Alcohol Use, 09/06/2018 Use: Never., 11/29/2023 Home/Environment Living situation: Home/Independent. Domestic Concerns: None. Lives In: Single level home. Current Home Treatments Oxygen therapy, walker. Professional Skilled Services or Special Community Resources None. Marital Status: ., 08/04/2024 Sexual - No Risk, 09/06/2018 Substance Abuse - Denies Substance Abuse, 09/06/2018 Use: Never., 11/29/2023 Tobacco - High Risk, 09/06/2018 Nicotine Use: Former smoker, quit more than 30 days ago. Type: Cigarettes. Started at age: 8 Years.Stopped at age: 68 Years., 08/04/2024 Family History Cancer: Mother and Father. Diabetes mellitus: Mother. HTN - Hypertension: Mother. Heart disease: Mother, Father and Brother. Health Status Family Member(s) Assessment/Plan 1. Cervical spondylosis with myelopathy The cervical MRI shows significant stenosis with associated myelomalacia at C3- C4, C6-C7. At C5-C6 there is myelomalacia with less stenosis. This may represent a remote traumatic injury with autofusion at this disc. There is also infolding of the ligamentum flavum at C3-C4 and C6-C7. The cervical stenosis is his most significant problem at this time. My recommendation is for anterior cervical discectomy and fusion at C3-C4 and C6-C7 and possible C5-C6. He understands that he muststop smoking to optimize this surgery. We discussed surgical and non-surgical treatment options. I offered ACDF with interbody fusion cageand anterior plate fixation C3-C4, C6-C7, possible C5-C6. We discussed the pros and cons of surgical intervention. We also discussed the potential risk, benefits and complications of surgery, which include but are not limited to , bleeding, infection, neurologic injury, blood clots, persistentpain and paralysis, the patient. We also discussed the potential risks and complications that are unique to this surgery which include injury to trachea, esophagus, carotid sheath and its contents, and the recurrent laryngeal nerve. With this understanding, the patient wishes to proceed with the surgery as described. We also discussed the fact that we may need to do a posterior surgery if we are unable to decompress the spinal cord completely by an anterior approach. This would be determined following the anterior surgery. Hopefully the infolding of the ligamentum flavum will be resolved with distraction of thedisc space at the time of the interbody fusion. 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 Spinal stenosis at L4-L5 level Stented coronary artery Historical Chest pain Procedure/Surgical History Cardiac catheterization: 01/2024 Biopsy of lun12/2023 Cardiac catheterization: 2008 Microdiscectomy: 1996 Allergies NKA Medications What How Much When Instructions Last Dose Unchanged aspirin (aspirin 81 mg oral delayed release tablet) 1 tab(s) by mouth Every day Unchanged atorvastatin (atorvastatin 80 mg oral tablet) 1 tab(s) by mouth Once a day (in the morning) Unchanged busPIRone (busPIRone 7.5 mg oral tablet) 1 tab(s) by mouth Two (2) times a day Unchanged carvedilol (carvedilol 6.25 mg oral tablet) 1 tab(s) by mouth Two (2) times a day Unchanged clopidogrel (clopidogrel 75 mg oral tablet) 1 tab(s) by mouth Once a day Unchanged fluticasone/ umeclidinium/ vilanterol (Trelegy Ellipta 200 mcg-62.5 mcg-25 mcg/ inh inhalation powder) 1 inh by inhalation Daily at 12 noon Unchanged gabapentin (gabapentin 300 mg oral capsule) 1 cap by mouth Daily at bedtime Unchanged lisinopril (lisinopril 5 mg oral tablet) 1 tab(s) by mouth Once a day (in the morning) Unchanged mirtazapine (mirtazapine 30 mg oral tablet) 1 tab(s) by mouth Daily at bedtime Unchanged mupirocin topical (mupirocin 2% topical ointment) 1 application Topical Two (2) times a day Bilateral intranasal application twice daily x 5 days pre-surgery &/ or as many days pre-surgery as possible. Unchanged pantoprazole (Protonix 40 mg oral enteric coated tablet) 1 tab(s) by mouth Once a day before a meal Digitally Signed by MANDO FISCHER DO on 08/18/2024 01:44 PM [id number] History and physical note Date of Service August 18, 2024 History and Physical Update I have examined the patient; reviewed the History and Physical and there are no changes to the History and Physical unless noted below. Digitally Signed by MANDO FISCHER DO on 08/18/2024 12:51 PM [facility] [id number] Anesthesiology Consult note Patient: SARTHAK PUTNAM JR Age: 69 years Sex: Male : 1955 Associated Diagnoses: None Author: CAROLE LUNDY MD Preoperative Information Time of last food or liquid consumption: 08/18/2024 00:00:00 Anesthesia history Patient's history: negative. Family's history: negative. Health Status Allergies: Allergic Reactions (Selected) NKA, Allergies (1) ActiveSeverityReaction NKANone Documented Current medications: (Selected) Inpatient Medications Ordered Kefzol: 2 gram(s), 20 mL, 240 mL/hr, IV Push (INT), PREOP pharm Prescriptions Prescribed Protonix 40 mg oral enteric coated tablet: 40 mg, 1 tab(s), Oral, qDayAC, 30 tab(s) mupirocin 2% topical ointment: 1 lino, Topical, BID, Bilateral intranasal application twice daily x 5 days pre-surgery &/or as many days pre-surgery as possible., 22 gram(s), 0 Refill(s) Documented Medications Documented Trelegy Ellipta 200 mcg-62.5 mcg-25 mcg/inh inhalation powder: 1 inh, Inhalation, 12 (noon), 0 Refill(s) aspirin 81 mg oral delayed release tablet: 81 mg, 1 tab(s), Oral, Daily, 0 Refill(s) atorvastatin 80 mg oral tablet: 80 mg, 1 tab(s), Oral, qAM, 100 tab(s), 0 Refill(s) busPIRone 7.5 mg oral tablet: 7.5 mg, 1 tab(s), Oral, BID, 0 Refill(s) carvedilol 6.25 mg oral tablet: 6.25 mg, 1 tab(s), Oral, BID, 180 tab(s), 0 Refill(s) clopidogrel 75 mg oral tablet: 75 mg, 1 tab(s), Oral, qDay, 0 Refill(s) gabapentin 300 mg oral capsule: 300 mg, 1 cap(s), Oral, qHS, 0 Refill(s) lisinopril 5 mg oral tablet: 5 mg, 1 tab(s), Oral, qAM, 100 tab(s), 0 Refill(s) mirtazapine 30 mg oral tablet: 30 mg, 1 tab(s), Oral, qHS, 0 Refill(s), Medications (1) Active Scheduled: (1) ceFAZolin syringe 2 gram(s) 20 mL, IV Push (INT), PREOP pharm Continuous: (0) PRN: (0) Problem list: Medical Cervical spondylosis with myelopathy / SNOMED CT 1113499927 / Confirmed Congenital fusion of cervical spine / SNOMED CT [id number] / Confirmed Disc displacement, lumbar / SNOMED CT [id number] / Confirmed CA (myocardial infarction) / SNOMED CT [id number] / Confirmed Myelomalacia of cervical cord / SNOMED CT [id number] / Confirmed Myelopathy concurrent with and due to spinal stenosis of cervical region / SNOMED CT [id number] / Confirmed Spinal stenosis at L4-L5 level / SNOMED CT 83277956 / Confirmed Stented coronary artery / SNOMED CT [id number] / Confirmed, Active Problems (20) 2019 novel coronavirus disease (COVID-19) Acid reflux Anxiety Arthritis Cervical spondylosis with myelopathy Congenital fusion of cervical spine COPD - Chronic obstructive pulmonary disease Disc displacement, lumbar Glasses Hard of hearing Hypercholesterolemia CA (myocardial infarction) Myelomalacia of cervical cord Myelopathy concurrent with and due to spinal stenosis of cervical region On anticoagulant therapy On home oxygen therapy Presence of dental prosthetic device Spinal stenosis at L4-L5 level Stented coronary artery TIA (transient ischemic attack) Histories Past Medical History: Active CA (myocardial infarction) ([id number]) Stented coronary artery ([id number]) Resolved Chest pain ([id number]): Onset on 04/24/2015 at 59 years. Resolved. Family History: Diabetes mellitus Mother Heart disease Mother Father Brother Cancer Mother Father HTN - Hypertension Mother Procedure history: Stent placement ([id number]) in the month of 01/2024 at 68 Years. Cardiac catheterization ([id number]) in the month of 01/2024 at 68 Years. Comments: 08/04/2024 9:21 Amy Deleon RN 5 stents placed Biopsy of lung ([id number]) in the month of 12/2023 at 68 Years. Cardiac catheterization ([id number]) in 2008 at 54 Years. Comments: 08/04/2024 9:25 Amy Deleon RN 1 stent placed 04/24/2015 7:46 EDT - MINI Patel 2010 Microdiscectomy ([id number]) in 1996 at 42 Years. Comments: 08/04/2024 9:24 Amy Deleon RN Lumbar region Social History: Social & Psychosocial Habits Alcohol 08/04/2024 Assessment: Denies Alcohol Use 08/04/2024 Use: Never Substance Abuse 08/04/2024 Assessment: Denies Substance Abuse 08/04/2024 Use: Never Tobacco 08/04/2024 Assessment: High Risk 08/04/2024 Tobacco Use: Former smoker, quit more Type: Cigarettes Started at age: 8 Years Stopped at age: 68 Years Home/Environment 08/04/2024 Living situation: Home/Independent Domestic Concerns None Lives In Single level home Current Home Treatments Oxygen therapy, walker Special Services and Community Resources None Marital Status of Patient if Patient Independent Adult: Sexual 08/04/2024 Assessment: No Risk Physical Examination Vital Signs 08/18/2024 10:44 EST Temperature Temporal Artery 36.2 DegC Peripheral Pulse Rate 68 bpm Respiratory Rate 16 br/min Systolic Blood Pressure Non-Invasive 146 mmHg HI Diastolic Blood Pressure Non-Invasive 89 mmHg Vital Signs (last 24 hrs) Last Charted Temp Pnyihfzu28.2 DegC (AUG 18 10:44) SBPH 146 mmHg (AUG 18 10:44) DBP89 mmHg (AUG 18 10:44) Measurements from flowsheet : Measurements 08/18/2024 10:44 EST Height 175.3 cm Height in inches 69 inch(es) Admission Weight 78.2 kg Weight Lbs 172 lb [place] Body Weight 70.74 kg Admission Body Mass Index 25.45 m2 Pain assessment: Pain Assessment 08/18/2024 10:44 EST Primary Pain Intensity 0 Pain Scale Type 0-10 Pain scale . General: Alert and oriented, No acute distress. Airway: Mallampati classification: II (soft palate, fauces, uvula visible). Dentition Evaluation: Dentures, lower, Dentures, upper. Respiratory: Lungs are clear to auscultation. Cardiovascular: Normal rate. Heart Sounds: Normal. Review / Management Results review: Labs (Last four charted values) Plt 269(AUG 18) PT 10.8(AUG 18) INR 0.9(AUG 18) PTT 32.7(AUG 18) , Lab results 08/18/2024 10:48 EST SN - Preop - CTm Pt Ready for OR/Proced 08/18/2024 10:48 08/18/2024 10:48 EST SN - Preop - CTm Pt in SDS Room 08/18/2024 10:40 08/18/2024 10:48 EST Wrist Right 20 gauge Peripheral IV Activity: Insert new site Peripheral IV Dressing Condition: Clean, Dry, Intact Peripheral IV Dressing Activity: Applied, Transparent dressing Peripheral IV Line Status/Patency: Flushes easily Peripheral IV Site Condition: No complications Peripheral IV Equipment: PRN Adaptor Peripheral IV Number of Attempts: 1 08/18/2024 10:46 EST Surgical Site Infection Prevention SSI FAQ provided Infection Prevention Teaching Evaluation Verbalizes/Nonverbally indicates understanding 08/18/2024 10:44 EST Height 175.3 cm Height in inches 69 inch(es) Admission Weight 78.2 kg Weight Lbs 172 lb [place] Body Weight 70.74 kg Admission Body Mass Index 25.45 m2 Temperature Temporal Artery 36.2 DegC Peripheral Pulse Rate 68 bpm Respiratory Rate 16 br/min Systolic Blood Pressure Non-Invasive 146 mmHg HI Diastolic Blood Pressure Non-Invasive 89 mmHg Primary Pain Intensity 0 Pain Scale Type 0-10 Pain scale Oxygen Therapy Room air Oxygen Saturation 95 % Abdomen Description Non-distended Abdomen Palpation Soft Urinary Elimination Voiding, no difficulties Skin Temperature Warm Skin Description Normal for ethnicity, Dry Skin Integrity Intact IV Present Present Neurological Symptoms Tingling Characteristics of Speech Clear Level of Consciousness Alert Strength All Extremities Strong Tone All Extremities Normal Sensation All Extremities Numbness, Tingling Violence Risk Confused No Violence Risk Irritable No Violence Risk Boisterous No Violence Risk Verbal Threats No Violence Risk Physical Threats No Violence Risk Attacking Objects No Violence Risk Predictor Score 0 Violence Risk Intervention None Violence Risk Current Interventions None Affect/Behavior Cooperative Orientation Oriented x 4 Allergies Yes Consent Form Signed Yes Patient Dressed In Hospital gown CHG Preoperative Wash/Wipe Night before procedure, Day of procedure, Site specific wipe Non-CHG Preoperative Shampoo Not applicable Preop Nasal Swab Povidone-Iodine CHG Skin Prep Completed for Eligible Surgery History & Physical Update On Chart Yes History & Physical On Chart Yes Obstructive Sleep Apnea Assess Completed Yes MRSA/MSSA Protocol Yes Belongings At Bedside Cell phone, Glasses, Jacket, Pants, Shirt, Shoes, Socks, Undergarments Assistive Device Walker NPO Status Maintained Standard Safety ID band on, Call device within reach, Bed in low position, Wheels locked, Upper/Half-Length side-rails up, Visitor at bedside, Safety level maintained Allergy Band on and Verified No Patient ID Band on and Verified Yes Implants Verified Yes Pacemaker/AICD Verified Yes Site Verified by Patient/Family Yes Last Fluid Intake 08/18/2024 7:30 Last Food Intake 08/17/2024 17:00 08/18/2024 10:43 EST Designated Person #1 We May Share [facility] [id number] Designated Person #1 Relationship Spouse Designated Person #2 We May Share [facility] Senthil Putnam Designated Person #2 Relationship Son Privacy Restrictions Requested None Status N/A Sensory Deficits Hearing deficit, left ear, Hearing deficit, right ear Sleep Apnea Snore Yes Sleep Apnea Tired No Sleep Apnea Obstruction No Sleep Apnea Pressure No Sleep Apnea BMI No Sleep Apnea Age Yes Sleep Apnea Neck No Sleep Apnea Gender Yes Sleep Apnea Score 3 Diagnosed With Sleep Apnea No Advanced Directives No - refuses information Infectious Disease Symptoms Patient states no symptoms Infectious Disease Recent Exposure No Alcohol and Drug Use No Employee of Institutional Living No Health Care Employee No History of Exposure to TB No History of Positive Chest X-Ray for TB No History of Positive TB Skin Test No Homeless No Known Immunosuppression No Recent Immigrant No Resident of Institutional Living No Bloody Sputum No Fatigue No Fever No Loss of Appetite No Night Sweats No Persistent Cough > 3 Weeks No Weight Loss No Surgery Scheduled On Date/Time 08/18/2024 12:15 Patient Aware Date/Time Of Surgery Yes Arrival Time the Day of Surgery 08/18/2024 10:15 Patient Aware of Arrival Time Yes Pre-Op Patient Education No smoking after midnight, Responsible [place], Aware of surgery location, Pre-op education done, 2 bottles CHG wash with instructions given, Instructed to take ordered medications, Instructed to bring home medications, VTE prevention handout given, SSI prevention handout given, MRSA protocol education provided SN - Preprocedure Comments Spoke with patient, Verbalizes/Nonverbally indicates understanding Barriers to Learning Hearing deficit Teaching Method Explanation Preferred Spoken Language Citizen Of [place] Preferred Written Language Citizen [place] Teaching Evaluation Verbalizes/Nonverbally indicates understanding Safety Brochure Information Reviewed Yes [place] Video Viewed Previously viewed Patient's Current Physicians Patient's Current Physicians Discharge To, Anticipated Home with family care Prev Test Positive/Diagnosis w/COVID-19 No Current Quarantine/Isolated any Illness No Any Contact with Sick Animals/Birds No Traveled Anywhere in Last 30 Days No Lost Weight Unintentionally Recently No Eat Poorly Due to Decreased Appetite No Total MST Score 0 N/A Personal Devices, Patient Valuables Glasses Anesthesia/Transfusions Prior anesthesia Admission Note-Nursing Same Day Patient History 08/18/2024 10:32 EST Platelet 269 10^3/mcL APTT 32.7 seconds Protime 10.8 seconds PT International Ratio 0.9 ratio NA Fibrinogen 540 mg/dL 08/18/2024 10:16 EST Orthopedic Phone Message MRI uploaded . Assessment and Plan [place] [employer] (ASA) physical status classification: Class III. Anesthetic Preoperative Plan Anesthetic technique: General. Maintenance airway: Oral endotracheal tube. Special Monitoring: Arterial line. Notes: ASA III: His past medical history includes COVID-19 (2022), acid reflux (controlled with pantoprazole), anxiety, arthritis, cervical spondylosis, COPD, hypercholesterolemia, myocardial infarction, myelomalacia of cervical cord, spinal stenosis, TIA (10/2023) Cardiac stent (02/05/2024 and 2009 RCA, x 6). He denies being diagnosed sleep apnea, STOP BANG score, 3. He does have a history of smoking, quit 7 months ago, smoked 1 pack a day for 60 years , Mr. Sosa was seen and examined by me, Carole Lundy MD. The medical record was reviewed. Consultations, lab results , radiographic results and cardiovascular studies examined and noted. Anesthesia was explained in detail and questions were invited and answered. We will proceed as outlined inthe plan above.. Digitally Signed by CAROLE LUNDY MD on 08/18/2024 12:22 PM Digitally Signed by CAROLE LUNDY MD on 08/18/2024 12:43 PM [id number] Miscellaneous Notes* Telephone Encounter - Yanira Glynn RN - 11/20/2023 4:03 PM EST Patient calls and notified of below. Patient voices understanding. Yanira Glynn RN * Telephone Encounter - Amrita Gama PSS - 11/20/2023 3:34 PM EST CD READY FOR GAS LOAD DISPATCHER [place] [facility] [place] DID[place]'T HAVE A VM * Telephone Encounter - Yanira Glynn RN - 11/20/2023 3:09 PM EST Patient calls and states that he needs a copy of MRI results on a disk. Yanira Glynn RN documented in this encounterReg[facility] Instructions* Patient Instructions* Bonita Medrano PA-C - 11/20/2023 1:36 PM EST Consult to neurosurgery (call previous neurosurgeon TODAY and let them know you have cord compression in your neck), as soon as you can be seen. Reach out if you cannot be seen within the next 1-2 weeks. Go to the emergency department should you experience any falls, loss of bowel or bladder control, numbness in your groin. Follow up as needed. documented in this encounterRegency [facility]-27-2024 History of Present illness Narrative* Bonita Medrano PA-C - 11/20/2023 1:25 PM EST Images from the original note were not included. ESTABLISHED PATIENT VISIT Last visit: 10/24/[address] Anaya ASSESSMENT/PLAN: 1. Stroke-like symptoms - ICD9: 781.99, ICD10: R29.90 (primary diagnosis) 2. Spinal stenosis of lumbar region without neurogenic claudication - ICD9: 724.02, ICD10: M48.061 3. Spinal stenosis of cervical region - ICD9: 723.0, ICD10: M48.02 4. Left-sided weakness - ICD9: 728.87, ICD10: R53.1 5. Weakness of both lower extremities - ICD9: 729.89, ICD10: R29.898 6. Recurrent falls - ICD9: V15.88, ICD10: R29.6 Patient with complaints and symptoms as above, some of which including lower ext weakness and numbness are chronic while other including stroke like symptoms with left sided weakness are subacute. Unfortunately, the patient has had extensive workups prior to today including XRs, EMG/NCV and stroke workup at [facility] BUT I DO NOT HAVE ANY OF THESE RECORDS FOR REVIEW. These have been requested but will not be available at time of this visit. Exam for the most part is non-focal except for inconsistent sensory deficits (no localization) and atypical or functional weakness in the LUE. There is no weakness of the lower extremities and at least no pattern of sensory deficit on exam to suggest a peripheral polyneuropathy. D/w pt that review of prior records is essential to help narrow ddx. That said, I will proceed with further imaging as follows: -Repeat MRI brain to confirm no evidence of stroke or other intracranial etiology of L side weakness. -MRI C spine with reported history of C spine stenosis with concern that LUE symptoms might be secondary to C spine and not intracranial (possibly related to positioning during lung bx). -MRI L spine with reported history of L spine stenosis - no MRIs to evaluate of late (only XRs), and thus feel appropriate to evaluate for progression of stenosis as cause of weakness (prior L spine surgery). Pt will follow up in [place] in a 60 minutes appt as we will need to review all of his prior workupduring that evaluation as well as the results of the imaging studies as above. For now will hold on labs so as to not repeat studies already completed. Will also make no changes in meds as it is uncertain as to what is being treated at this time. Jl Anaya MD CHIEF COMPLAINT: follow up HISTORY OF PRESENT ILLNESS: Sarthak Putnam is a 68 year old male, There were no vitals taken for this visit. with a PMH significant for TIA. Saw Dr. Anaya on 10/24/23 for stroke like symptoms. States was seeing his PCP for leg weakness and numbness and was sent to [facility] for CT brain that reportedly showed 2 spots that might be strokes as well as an EMG/NCV. I have none of these records for review. Regarding leg weakness, states from the hips down they tingle and feel cold. States also had XR of L spine as did [facility]. States they told him there was a pinched nerve in his lower back. Prior operation on the L spine in 1997 for ruptured disc. Ortho then told it was due to neck and did XR of the neck and told couple vertebrae that were fused together. States the weakness and numbness is 16/04. Ordered repeat MRI brain, C spine and L spine. Spinal MRI showing moderate to severe stensosis, MRI brain normal. Per neuro consult at [facility]: Patient presents for follow-up appointment for numbness and tingling, weakness. Patient states thatwhile he was admitted on 10-12-2023 for a lung biopsy due to concern for possible lung mass/cancer, had acute loss of responsiveness. Notes that he lost his left side during this moment, and needed to be resuscitated. Denied eating CPR but needed respiratory ventilation. Since that time he has regained sensation and some strength in his left side but still continues to have left arm weakness. Notes this is improving after being in physical therapy. Notes that his symptoms of numbness, tingling, weakness started about a year ago, has had multiple specialists evaluate him. At the time of his admission he was seeing his orthopedic surgeon, who did his lumbar surgery, an MRI of the cervical spine was ordered due to concerns of cervical stenosis. However, was unable to get this done, when he saw Dr. Anaya similar test was ordered and showed significant compression and myelopathy. Noting this most weakness in the left upper extremity as well as the right lower extremity. No new concerns since last appointment, no new symptoms, no falls. No bowel bladder incontinence, no saddle anesthesia. Notes he has some weakness in his hands, primarily his left upper extremity. When he goes to pick something up that has some weight to it his entire arm will start shaking. Sometimes he trips over his right lower extremity which is the weaker leg. REVIEW OF SYSTEMS GENERAL:No weight loss, malaise or fevers. HEENT:Negative for frequent or significant headaches, No changes in hearing or vision, no nose bleeds or other nasal problems NECK:Negative for lumps, goiter, pain and significant neck swelling RESPIRATORY: Negative for cough, wheezing or shortness of breath. CARDIOVASCULAR: Negative for chest pain, leg swelling or palpitations. GASTROINTESTINAL: Negative for abdominal discomfort, blood in stools or black stools or change in bowel habits GENITOURINARY: No history of dysuria, frequency or incontinence MUSCULOSKELETAL: Negative for joint pain or swelling, back pain or muscle pain. NEUROLOGIC:Negative for focal numbness or weakness, headaches and dizziness or syncope, vision changes, speech/languag changes - EXCEPT that as per HPI above. SKIN:Negative for lesions, rash, and itching. PSYCHIATRIC: Negative for sleep disturbance, mood disorder and recent psychosocial stressors. HEMATOLOGIC/LYMPHATIC/IMMUNOLOGIC:Negative for prolonged bleeding, bruising easily or swollen nodes. ENDOCRINE: Negative for cold or heat intolerance, polyuria, polydipsia and goiter. The remainder of the ROS was reviewed and is negative. LAB/IMAGING: Those performed since patient's last visit have been reviewed. MRI cervical and lumbar spine 11/12/23 IMPRESSION: Findings suspicious for prior anterior cervical discectomy and fusion procedure at C5-6 with localized myelomalacia at this same level. Degenerative disc disease at C3-4 and C6-7 with severe and moderate cord compression, respectively, and localized myelomalacia at both levels suggesting compressive myelopathy. Multilevel cervical bony foraminal narrowing as detailed above. Suspected dorsal decompression procedure at L5-S1. Developmental lumbar canal stenosis with mild superimposed degenerative changes causing moderate L2-3 and mild L4-5 and L1-2 canal stenosis. Mild bony foraminal stenosis at L2-3 and L4-5 as outlined above. Cervical Anatomic Variant: None. Assume 7 cervical vertebrae with counting from the craniocervical junction. Anatomic Thoracic/Lumbar Variant: None. L4-5 is considered the level of the iliac crest and assume there are 5 lumbar-type vertebrae. MRI brain 11/12/23 IMPRESSION: No acute intracranial pathology. Mild chronic ischemic gliotic and involutional changes. CTA head and neck 10/12/23 MRI brain 10/12/23 MEDICATIONS: gabapentin enacarbil 300 mg TbER Take 300 mg by mouth once daily. ibuprofen (ADVIL ORAL) Take 200 mg by mouth four times daily. chlorpheniramine maleate (ALLERGY 4-HOUR ORAL) Take 10 mg by mouth once daily. pantoprazole sodium (PANTOPRAZOLE ORAL) Take 40 mg by mouth once daily. aspirin 81 mg cap Take 81 mg by mouth once daily. atorvastatin (LIPITOR) 40 mg tablet Take 40 mg by mouth once daily. clopidogrel (PLAVIX) 75 mg tablet Take 75 mg by mouth once daily. HISTORIES No past medical history on file. No family history on file. SOCIAL HISTORY Social History Tobacco Use Smoking status: Every Day Packs/day: 1 Types: Cigarettes Smokeless tobacco: Never PHYSICAL EXAMINATION BP 156/94 Pulse 74 Resp 18 Wt 75.8 kg (167 lb) SpO2 97% BMI 24.66 kg/m GENERAL EXAM: General appearance: NAD, pleasant. HEENT: NC/AT, nasal congestion absent, no oral lesions, membranes moist. Absent teeth NECK: No masses, supple. Lungs: Breathing comfortably Extr: Moves all extremities without difficulty Skin: Cool to touch. No rash. NEUROLOGICAL EXAM: General: Awake, alert, oriented x3 (person,place,time), speech fluent, no dysarthria; comprehension, naming, repetition intact. Short and long term acute care registered nurse memory intact. CN: PERRL, EOMI and without nystagmus, VFF to confrontation, facial sensation and strength are normal and symmetric, hearing is intact to finger rub bilaterally, palate and tongue movements are intact and symmetric. SCM and trapezius strength normal. Motor: Normal tone, bulk and strength (5/5) bilaterally (throughout extremities x4). Reflexes: Brisk reflexes to the upper and lower extremities, positive Mikey bilaterally Coordination: FNF intact. No tremors. Sensation: No evidence of neglect. Gait: Antalgic gait Assessment and Plan: ASSESSMENT/PLAN: 1. Cervical stenosis of spine - ICD9: 723.0, ICD10: M48.02 (primary diagnosis) 2. Spinal stenosis of lumbar region without neurogenic claudication - ICD9: 724.02, ICD10: M48.061 Patient with 1 year of progressive weakness beginning in the right lower extremity but encompassingboth lower extremities. Had lung biopsy on 10-12-2023 which resulted in acute left-sided weakness concerning for possible TIA. Workup at [facility] was negative for any stroke. Patientcontinues to endorse left arm weakness that is improving with physical therapy. Also noting some weakness on his right upper extremity as well as not as severe. Repeat MRI of the brain was negative for any intracranial source patient symptoms. However, MRI of the cervical spine shows significant central stenosis possible myelopathy. Lumbar MRI does show some chronic and stable degenerative changes. At this time, concern for surgical process, patient does have orthopedic surgeon for which she had his lumbar spine surgery done in the past. Encourage patient to call his surgeon today due to the urgency of morbidity mortality associated with cervical compression. Discussed at length with patient and family signs and symptoms of worsening cord compression and then go to emergency department. Di scussed that they cannot reach his surgeon or given in a timely manner to reach out to us and we will schedule with neurosurgery at the [facility]. Patient agrees and understands. Patient agreeable to treatment plan of care at this time, questions were answered. Patient to follow-up as needed. Bonita Medrano PA-C I spent a total of 45 minutes on the date of the service which included preparing to see the patient, [id number] patient care, completing clinical documentation, obtaining and/or reviewing separately obtained history, performing a medically appropriate examination, counseling and educating the pat ient/family/caregiver, and ordering medications, tests, or procedures. This document has been created with the use of voice recognition technology. It may contain inaccuracies: (e.g. misspellings, inaccurate syntax or word sense) that have escaped review. documented in this encounterReg[facility]02-19-2024 NoteHNO ID: [id number] Author: JESS STOVALL RT(R) Service: ? Author Type: Teacher Education Instructor Type: Progress Notes Filed: 11/12/2023 15:12 Note Text: Radiology Service Progress Note PATIENT NAME: Sarthak Putnam DATE OF SERVICE: November 12, 2023 TIME: 2:52 PM PATIENT IDENTITY VERIFICATION COMPLETED USING TWO (2) IDENTIFIERS: Name and Date of confirmed by patient verbally. FALL SCREENING: Has the patient had 2 falls in the last year or 1 fall with injury or currently using an Ambulatory Assistive Device (Walker, Cane, Wheelchair, Crutches, etc.)? Yes, Patient High Risk for Falls What interventions were put in place to prevent falls during this visit? Offered Assistance with Transfers/Clothing PATIENT GENDER DATA: Male PATIENT RELEVANT IMPLANT DATA REVIEWED: Yes PATIENT PRESENTS WITH AN IMPLANTABLE OR ATTACHED JOB TRACER: No RADIOLOGY DEPARTMENT: MR; Exam(s) Completed: Spine: Cervical spine PERIPHERAL IV DATA: Not applicable SIGNED BY: RT Chino(R), RT(R) November 12, 2023 2:52 [facility]02-19-2024 NoteHNO ID: [id number] Author: JESS STOVALL RT(R) Service: ? Author Type: Teacher Education Instructor Type: Progress Notes Filed: 11/12/2023 15:35 Note Text: Radiology Service Progress Note PATIENT NAME: Sarthak Putnam DATE OF SERVICE: November 12, 2023 TIME: 3:19 PM PATIENT IDENTITY VERIFICATION COMPLETED USING TWO (2) IDENTIFIERS: Name and Date of confirmed by patient verbally. FALL SCREENING: Has the patient had 2 falls in the last year or 1 fall with injury or currently using an Ambulatory Assistive Device (Walker, Cane, Wheelchair, Crutches, etc.)? Yes, Patient High Risk for Falls What interventions were put in place to prevent falls during this visit? Offered Assistance with Transfers/Clothing PATIENT GENDER DATA: Male PATIENT RELEVANT IMPLANT DATA REVIEWED: Yes PATIENT PRESENTS WITH AN IMPLANTABLE OR ATTACHED JOB TRACER: No RADIOLOGY DEPARTMENT: MR; Exam(s) Completed: Spine: Lumbar spine PERIPHERAL IV DATA: Not applicable SIGNED BY: RT Chino(R)RT(R) November 12, 2023 3:19 [facility]02-19-2024 NoteHNO ID: [id number] Author: JESS STOVALL RT(R) Service: ? Author Type: Teacher Education Instructor Type: Progress Notes Filed: 11/12/2023 14:51 Note Text: Radiology Service Progress Note PATIENT NAME: Sarthak Putnam DATE OF SERVICE: November 12, 2023 TIME: 2:27 PM PATIENT IDENTITY VERIFICATION COMPLETED USING TWO (2) IDENTIFIERS: Name and Date of confirmed by patient verbally. FALL SCREENING: Has the patient had 2 falls in the last year or 1 fall with injury or currently using an Ambulatory Assistive Device (Walker, Cane, Wheelchair, Crutches, etc.)? Yes, Patient High Risk for Falls What interventions were put in place to prevent falls during this visit? Offered Assistance with Transfers/Clothing PATIENT GENDER DATA: Male PATIENT RELEVANT IMPLANT DATA REVIEWED: Yes PATIENT PRESENTS WITH AN IMPLANTABLE OR ATTACHED JOB TRACER: No RADIOLOGY DEPARTMENT: MR; Exam(s) Completed: Head: Routine Brain PERIPHERAL IV DATA: Not applicable SIGNED BY: RT Chino(R)RT(R) November 12, 2023 2:27 [facility] History of Present illness Narrative* Jess Stovall (Rt)RT(R) - 11/12/2023 3:45 PM EST Radiology Service Progress Note PATIENT NAME: Sarthak Putnam DATE OF SERVICE: November 12, 2023 TIME: 2:52 PM PATIENT IDENTITY VERIFICATION COMPLETED USING TWO (2) IDENTIFIERS: Name and Date of confirmedby patient verbally. FALL SCREENING: Has the patient had 2 falls in the last year or 1 fall with injury or currently using an Ambulatory Assistive Device (Walker, Cane, Wheelchair, Crutches, etc.)? Yes, Patient High Riskfor Falls What interventions were put in place to prevent falls during this visit? Offered Assistance with Transfers/Clothing PATIENT GENDER DATA: Male PATIENT RELEVANT IMPLANT DATA REVIEWED: Yes PATIENT PRESENTS WITH AN IMPLANTABLE OR ATTACHED JOB TRACER: No RADIOLOGY DEPARTMENT: MR; Exam(s) Completed: Spine: Cervical spine PERIPHERAL IV DATA: Not applicable SIGNED BY: RT Chino(R)RT(R) November 12, 2023 2:52 PM documented in this encounterRegency [facility]02-19-2024 History of Present illness Narrative* Jess StovallRt)RT(R) - 11/12/2023 3:00 PM EST Radiology Service Progress Note PATIENT NAME: Sarthak Putnam DATE OF SERVICE: November 12, 2023 TIME: 3:19 PM PATIENT IDENTITY VERIFICATION COMPLETED USING TWO (2) IDENTIFIERS: Name and Date of confirmedby patient verbally. FALL SCREENING: Has the patient had 2 falls in the last year or 1 fall with injury or currently using an Ambulatory Assistive Device (Walker, Cane, Wheelchair, Crutches, etc.)? Yes, Patient High Riskfor Falls What interventions were put in place to prevent falls during this visit? Offered Assistance with Transfers/Clothing PATIENT GENDER DATA: Male PATIENT RELEVANT IMPLANT DATA REVIEWED: Yes PATIENT PRESENTS WITH AN IMPLANTABLE OR ATTACHED JOB TRACER: No RADIOLOGY DEPARTMENT: MR; Exam(s) Completed: Spine: Lumbar spine PERIPHERAL IV DATA: Not applicable SIGNED BY: RT Chino(R)RT(R) November 12, 2023 3:19 PM documented in this encounterRegency Hospital [facility]02-19-2024 History of Present illness Narrative* Jess Stovall (Rt)RT(R) - 11/12/2023 2:15 PM EST Radiology Service Progress Note PATIENT NAME: Sarthak Putnam DATE OF SERVICE: November 12, 2023 TIME: 2:27 PM PATIENT IDENTITY VERIFICATION COMPLETED USING TWO (2) IDENTIFIERS: Name and Date of confirmedby patient verbally. FALL SCREENING: Has the patient had 2 falls in the last year or 1 fall with injury or currently using an Ambulatory Assistive Device (Walker, Cane, Wheelchair, Crutches, etc.)? Yes, Patient High Riskfor Falls What interventions were put in place to prevent falls during this visit? Offered Assistance with Transfers/Clothing PATIENT GENDER DATA: Male PATIENT RELEVANT IMPLANT DATA REVIEWED: Yes PATIENT PRESENTS WITH AN IMPLANTABLE OR ATTACHED JOB TRACER: No RADIOLOGY DEPARTMENT: MR; Exam(s) Completed: Head: Routine Brain PERIPHERAL IV DATA: Not applicable SIGNED BY: RT Chino(R)RT(R) November 12, 2023 2:27 PM documented in this encounterRegency Hospital [facility]01-31-2024 NoteHNO ID: [id number] Author: JL ANAYA JR, MD Service: ? Author Type: Physician Type: Progress Notes Filed: 10/24/2023 11:02 Note Text: 10/21/2023 PROMIS Global Health Physical Health Summary Physical health: Good Everyday physical activity, ability: Moderately Fatigue: Moderate Pain level: 3 General health: Good Social activities/roles, ability: Good Physical Health T-Score (Good) Physical Health Percentile PROMIS Global Health Mental Health Summary Quality of life: Good Mental health (mood,thinking): Good Social satisfaction: Good Emotional problems (anxious,depressed): Sometimes Mental Health T-Score (Good) Mental Health Percentile Percentiles provide an indication of how a patient's score ranks in relation to the [place] general population. > 31st percentile is within normal limits or better *< 31st percentile is at least ? SD worse than population, which may be clinically relevant < 16th percentile is at least 1 SD worse than population and warrants attention 10/21/2023 Sleep Apnea Probability Snores loudly: Yes Tired, fatigued or sleepy in daytime: No Stops breathing or choking/gasping during sleep: No High blood pressure: No Sleep Apnea Probability Score: 19 (Sleep study not recommended) NEW PATIENT (CONSULT) HISTORY AND PHYSICAL EXAM PRIMARY CARE PHYSICIAN: No primary care provider on file. REASON FOR CONSULT: Leg weakness, dizziness REFERRING PHYSICIAN: PCP - Dr. Scott Mejia CHIEF COMPLAINT: Leg weakness, Stroke like symptoms. Consultation requested by No ref. provider found for an opinion regarding chief complaint of Patient presents with: New Patient and my final recommendations will be communicated back to the requesting physician by way of shared medical record or letter via [place] mail. HISTORY OF PRESENT ILLNESS: Sarthak Putnam is a 68 year old male, Ht 175.3 cm (5' 9) BMI 24.74 kg/m2 with no medical records in [facility]. was seeing his PCP for leg weakness and numbness and was sent to [facility] for CT brain that reportedly showed 2 spots that might be strokes as well as an EMG/NCV. I have none of these records for review. Then was in [facility] on 10/12/22 where he had a biopsy for lung cancer resulting in collapsed lungs and had stroke at same time and almost and lost his left side. had a CT and MRI at the hospital and had all the symptoms of a stroke but nothing showed up on film. was referred prior to the episode at [facility] 2 weeks ago. Regarding other medical conditions has high cholesterol. States that the neurologist from [facility] on camera did not show stroke. Now on baby ASA. States in the hospital his L arm was drawn up and he could not hold it up. Regarding leg weakness, states from the hips down they tingle and feel cold. States also had XR of L spine as did [facility]. States they told him there was a pinched nerve in his lower back. Prior operation on the L spine in 1997 for ruptured disc. Ortho then told it was due to neck and did XR of the neck and told couple vertebrae that were fused together. States the weakness and numbness is 24/7. Pt denies DM or thyroid dz. No history of ETOH use. No known vitamin deficiency. No bowel or bladder incontinence. Going back to episode of stroke like symptoms 2 weeks ago, denies any facial symptoms, visual changes. L sdie deficits from stroke like episode persist. Pt has had recurrent fall at home as he states his RLE crosses into the back of his LLE - occurring for months. Note referral was for dizziness but no complaints of such during this visit. REVIEW OF SYSTEMS GENERAL:No weight loss, malaise or fevers. HEENT:Negative for frequent or significant headaches, No changes in hearing or vision, no nose bleeds or other nasal problems NECK:Negative for lumps, goiter, pain and significant neck swelling RESPIRATORY: Negative for cough, wheezing or shortness of breath. CARDIOVASCULAR: Negative for chest pain, leg swelling or palpitations. GASTROINTESTINAL: Negative for abdominal discomfort, blood in stools or black stools or change in bowel habits GENITOURINARY: No history of dysuria, frequency or incontinence MUSCULOSKELETAL: See HPI. NEUROLOGIC:See HPI. SKIN:Negative for lesions, rash, and itching. PSYCHIATRIC: Negative for sleep disturbance, mood disorder and recent psychosocial stressors. HEMATOLOGIC/LYMPHATIC/IMMUNOLOGIC:Negative for prolonged bleeding, bruising easily or swollen nodes. ENDOCRINE: Negative for cold or heat intolerance, polyuria, polydipsia and goiter. The remainder of the ROS was reviewed and is negative. LAB/IMAGING: Reviewed and include: No results found for: WBC, RBC, HB, HCT, MCV, MCH, MCHC, RDWCV, PLT, MPV, GLUC, BUN, CREAT, NA, K, CHLOR, CO2, TPROT, ALB,CA, ALKPHOS, TBILI, AST, ALT, SUPRIYA, ESRMM, SSA, SSB, CRYO, CRYOQ, RF, AHBSQ, HEPCABEIA URINALYSIS No resul (more content not included)...[facility]01-31-2024 Note HNO ID: [id number] Author: SEVEN MENJIVAR OCCA Service: ? Author Type: Sugar Grinder Type: Progress Notes Filed: 10/24/2023 11:02 Note Text: 10/21/2023 PROMIS Global Health Physical Health Summary Physical health: Good Everyday physical activity, ability: Moderately Fatigue: Moderate Pain level: 3 General health: Good Social activities/roles, ability: Good Physical Health T-Score (Good) Physical Health Percentile PROMIS Global Health Mental Health Summary Quality of life: Good Mental health (mood,thinking): Good Social satisfaction: Good Emotional problems (anxious,depressed): Sometimes Mental Health T-Score (Good) Mental Health Percentile Percentiles provide an indication of how a patient's score ranks in relation to the [place] general population. > 31st percentile is within normal limits or better *< 31st percentile is at least ? SD worse than population, which may be clinically relevant < 16th percentile is at least 1 SD worse than population and warrants attention 10/21/2023 Sleep Apnea Probability Snores loudly: Yes Tired, fatigued or sleepy in daytime: No Stops breathing or choking/gasping during sleep: No High blood pressure: No Sleep Apnea Probability Score: 19 (Sleep study not recommended)[facility]01-31-2024 Miscellaneous Notes* Telephone Encounter - Sienna Kauffman LPN - 10/24/2023 10:30 AM EST Jl Anaya Jr., MD P tr Neur Héctor Nurse I need all [facility] this [facility]. [facility] Progress note Author Marjan Pizarro [facility] October 16, 2023 5:09pm Note Date/Time October 16, 2023 1 2:44pm [facility] Medical Records Department [address] [place] [address] [place] [address] Progress Note 10/16/23 1242 MR#: [id number] Acct: [id number] Name: SARTHAK PUTNAM Jr. Rep #:[id number] : 1955 68 From: Marjan Pizarro MD PCP: Dr. Scott Mejia MD Status:ADM I N Location: [place] [address] Subjective Subjective Patient seen and examined. He had no active complaints and had an uneventful night. Review of systems is otherwise negative. Objective Data Objective Data Vital Signs: Vital Signs Temp Pulse Resp BP Pulse Ox O2 Del Method O2 Flow Rate 98.0 F 72 16 155/90 H 93 Room Air 1 10/16/23 09:45 10/16/23 09:45 10/16/23 09:45 10/16/23 09:45 10/16/23 09:45 10/16/23 10:08 10/13/23 09:53 Oxygen Flow Rate (L/min) 1 Oxygen Delivery Method Room Air Weight: 163 lb 9.328 oz Body Mass Index (BMI) 24.1 Intake & Output: Intake and Output for Last 24 Hours 10/14/23 10/15/23 10/16/23 23:59 23:59 23:59 Intake Total 480 / 480 600 / 620 Output Total 1850 / 1850 1200 / 1200 0 / 0 Balance -1370 / -1370 -600 / -580 Lab / Micro Data 10/16/23 06:50 10/16/23 06:50 Labs: Laboratory Results - last 24 hr 10/16/23 06:50: WBC 5.6, RBC 4.90, Hgb 15.2, Hct 44.6, MCV 91.0, MCH 31.0, MCHC 34.1, RDW Std Deviation 43.5, RDW Coeff of Juliane 13.1, Plt Count 238, MPV 9.1, Immature Gran % (Auto) 1.100 H, Neut % (Auto) 55.4, Lymph % (Auto) 27.3, Norman % (Auto) 10.7 H, Eos % (Auto) 4.6, Baso % (Auto) 0.9, Absolute Neuts (auto) 3.1, Absolute Lymphs (auto) 1.53, Nucleated RBC % 0, Sodium 138, Potassium 3.9, Chloride 108 H, Carbon Dioxide 25.0, Anion Gap 5, BUN 26 H, Creatinine 0.86, Estim Creat Clear Calc 81.07, Est GFR (MDRD) Af Amer 114, Est GFR (MDRD) Non-Af 94, BUN/Creatinine Ratio 30.4 H, Glucose 101, Calcium 9.1 Rhythm Strip Rhythm Strip: Sinus Rhythm Rate: 55 Ectopy: None Physical Exam Const alert, oriented x3 and no apparent distress General Appearance: cooperative HEENT normocephalic, head/scalp atraumatic, moist oral mucous membranes and oropharynxnormal Eyes PERRL and EOMs intact bilaterally Neck no lymphadenopathy and supple Lymph Lymphatic: no lymphadenopathy noted Resp normal respiratory effort, normal air movement and clear to auscultation bilaterally Cardio regular rate, regular rhythm, S1 normal heart sound, S2 normal heart sound and no murmurs GI normal to inspection, nondistended, normoactive bowel sounds, soft to palpation and non-tender Extremity normal capillary refill, no clubbing, cyanosis or edema and no calf tenderness General Extremity: no tenderness to palpation of joints or extremities Neuro CN's II-XII intact bilaterally and no focal motor deficits Motor Exam: strength 5/5 throughout and general weakness Psych thought process normal, cooperative and affect normal Appearance: appropriate Assessment & Plan Assessment/Plan (1) GERD (gastroesophageal reflux disease): (2) COPD (chronic obstructive pulmonary disease): (3) Iatrogenic pneumothorax: PLAN: Plan #Iatrogenic pneumothorax * Patient was having a biopsy for lung mass and had an iatrogenic pneumothorax. * He had a chest tube placed which has now been removed. Stable. * On room air * #Cryptogenic CVA * He had sudden onset left-sided weakness and left visual field defect. CT of the brain and CT of the head and neck were negative. Was not given tenecteplase as he had just had the lung biopsy and the size had increased risk of bleeding. MRI of the brain was read as negative though his left arm still remain weaker. Neurology evaluated patient and thought that he likely had a cryptogenic stroke. * Is to be on dual antiplatelet therapy with aspirin and Plavix for 21 days then to continue with aspirin indefinitely. To have a 30-day event monitor upon discharge. * 2D echo was unremarkable. * #Lung mass: * S/p biopsy. Follow-up with pulmonology on outpatient basis. * Biopsy results showed fragments of benign lung parenchymal tissue with extensive fibrosis and negative for malignancy. #GERD: On PPI #Nicotine dependence: Counseled to quit. Refused nicotine patch. #DVT prophylaxis: SCDs Disposition: Still awaiting placement. Charges/Coding Visit Charges Inpatient E&M: 67441 Subs Hosp L2 10/16/23 1709 <Electronically signed by Marjan Pizarro MD> Marjan Pizarro MD Cosigner Signature (if applicable): CC: ~ Signed [facility] Work Phone: 1(103) 818-394301-22-2024 Progress note Author Marjan [facility] October 15, 2023 4:26pm Note Date/Time October 15, 2023 3 :19pm [facility] Medical Records Department [address] [place] [address] Progress Note 10/15/23 1514 MR#: [id number] Acct: [id number] Name: SARTHAK PUTNAM JrCarlos Rep #:[id number] : 1955 68 From: Marjan Pizarro MD PCP: Dr. Scott Mejia MD Status:ADM I N Location: [place] [address] Subjective Subjective Patient seen and examined. He felt well and had this. He had an uneventful night. Review of systems otherwise negative. He has remained hemodynamically stable. Objective Data Objective Data Vital Signs: Vital Signs Temp Pulse Resp BP Pulse Ox O2 Del Method O2 Flow Rate 97.7 F L 75 18 145/123 H 95 Room Air 1 10/15/23 14:10 10/15/23 14:10 10/15/23 14:10 10/15/23 14:10 10/15/23 14:38 10/15/23 14:38 10/13/23 09:53 Oxygen Flow Rate (L/min) 1 Oxygen Delivery Method Room Air Weight: 163 lb 9.328 oz Body Mass Index (BMI) 24.1 Intake & Output: Intake and Output for Last 24 Hours 10/13/23 10/14/23 10/15/23 23:59 23:59 23:59 Intake Total 1180 / 1180 480 / 480 360 / 360 Output Total 1500 / 1500 1850 / 1850 1000 / 1000 Balance -320 / -320 -1370 / -1370 -640 / -640 Lab / Micro Data 10/15/23 05:55 10/15/23 05:55 Labs: Laboratory Results - last 24 hr 10/15/23 05:55: WBC 5.7, RBC 4.85, Hgb 14.8, Hct 44.1, MCV 90.9, MCH 30.5, MCHC 33.6, RDW Std Deviation 43.4, RDW Coeff of Juliane 13.1, Plt Count 234, MPV 9.0, Immature Gran % (Auto) 1.100 H, Neut % (Auto) 60.0, Lymph % (Auto) 23.2, Norman % (Auto) 10.6 H, Eos % (Auto) 4.4, Baso % (Auto) 0.7, Absolute Neuts (auto) 3.4, Absolute Lymphs (auto) 1.32, Nucleated RBC % 0, Sodium 138, Potassium 3.8, Chloride 108 H, Carbon Dioxide 25.0, Anion Gap 5, BUN 25 H, Creatinine 0.86, Estim Creat Clear Calc 81.07, Est GFR (MDRD) Af Amer 113, Est GFR (MDRD) Non-Af 94, BUN/Creatinine Ratio 29.1 H, Glucose 94, Calcium 8.7 Rhythm Strip Rhythm Strip: Sinus Rhythm Rate: 55 Ectopy: None Physical Exam Const alert, oriented x3 and no apparent distress General Appearance: cooperative HEENT normocephalic, head/scalp atraumatic, moist oral mucous membranes and oropharynxnormal Eyes PERRL and EOMs intact bilaterally Neck no lymphadenopathy and supple Lymph Lymphatic: no lymphadenopathy noted Resp normal respiratory effort, normal air movement and clear to auscultation bilaterally Cardio regular rate, regular rhythm, S1 normal heart sound, S2 normal heart sound and no murmurs GI normal to inspection, nondistended, normoactive bowel sounds, soft to palpation and non-tender Extremity normal capillary refill, no clubbing, cyanosis or edema and no calf tenderness General Extremity: no tenderness to palpation of joints or extremities Neuro CN's II-XII intact bilaterally Motor Exam: strength 5/5 throughout and general weakness Psych thought process normal, cooperative and affect normal Appearance: appropriate Assessment & Plan Assessment/Plan (1) GERD (gastroesophageal reflux disease): (2) COPD (chronic obstructive pulmonary disease): (3) Iatrogenic pneumothorax: PLAN: Plan #Iatrogenic pneumothorax * Patient was having a biopsy for lung mass and had an iatrogenic pneumothorax. He had a chest tube placed which has not been removed. Stable. * #Cryptogenic CVA * He had sudden onset left-sided weakness and left visual field defect. CT of t he brain and CT of the head and neck were negative. Was not given tenecteplase as he had just had the lung biopsy and the size had increased risk of bleeding. MRI of the brain was read as negative though his left arm still remain weaker. Neurology evaluated patient and thought that he likely had a cryptogenic stroke. * Is to be on dual antiplatelet therapy with aspirin and Plavix for 21 days then to continue with aspirin indefinitely. To have a 30-day event monitor upon discharge. * 2D echo was unremarkable. * #Lung mass: S/p biopsy. Follow-up with pulmonology on outpatient basis. Biopsyresults not yet in. #GERD: On PPI #Nicotine dependence: Counseled to quit. Refused nicotine patch. #DVT prophylaxis: SCDs Disposition: Awaiting placement. Charges/Coding Visit Charges Inpatient E&M: 30089 Subs Hosp L2 10/15/23 1626 <Electronically signed by Marjan Pizarro MD> Marjan Pizarro MD Cosigner Signature (if applicable): CC: ~ Signed [facility] Work Phone: 1(619) 956-765501-21-2024 Progress note Author Debbie Morrell [facility] October 14, 2023 11:55am Note Date/Time October 14, 2023 1 1:53am [facility] Medical Records Department [address] [place] [address] Progress Note - Neurology 10/14/23 1148 MR#: [id number] Acct: [id number] Name: SARTHAK PUTNAM Jr. Rep #:[id number] : 1955 68 From: Debbie Morrell MD PCP: Dr. Scott Mejia MD Status:ADM I N Location: [place] [address] Objective Data Objective Data Vital Signs: Vital Signs Temp Pulse Resp BP Pulse Ox O2 Del Method O2 Flow Rate 97.5 F L 75 18 158/101 H 95 Room Air 1 10/14/23 08:00 10/14/23 08:00 10/14/23 08:00 10/14/23 08:00 10/14/23 08:00 10/14/23 08:54 10/13/23 09:53 Oxygen Flow Rate (L/min) 1 Oxygen Delivery Method Room Air Weight: 74.2 kg Body Mass Index (BMI) 24.1 Intake & Output: Intake and Output for Last 24 Hours 10/12/23 10/13/23 10/14/23 23:59 23:59 23:59 Intake Total 200 / 320 1180 / 1180 120 / 120 Output Total 0 / 0 1500 / 1500 1100 / 1100 Balance 200 / 320 -320 / -320 -980 / -980 Lab / Micro Data 10/14/23 05:38 10/14/23 05:38 Labs: Laboratory Results - last 24 hr 10/14/23 05:38: WBC 6.0, RBC 4.67, Hgb 14.4, Hct 42.6, MCV 91.2, MCH 30.8, MCHC 33.8, RDW Std Deviation 43.1, RDW Coeff of Juliane 13.1, Plt Count 222, MPV 9.0, Immature Gran % (Auto) 0.800, Neut % (Auto) 61.2, Lymph % (Auto) 23.2, Norman % (Auto) 9.8, Eos % (Auto) 4.0, Baso % (Auto) 1.0, Absolute Neuts (auto) 3.7, Absolute Lymphs (auto) 1.39, Nucleated RBC % 0, Sodium 138, Potassium 3.8, Chloride 108 H, Carbon Dioxide 26.0, Anion Gap 4 L, BUN 21 H, Creatinine 0.86, Estim Creat Clear Calc 81.07, Est GFR (MDRD) Af Amer 114, Est GFR (MDRD) Non-Af 94, BUN/Creatinine Ratio 24.5 H, Glucose 86, Calcium 8.7 Radiography Diagnostic Testing: Radiology Impression Echocardiogram 10/12/23 16:42 Interpretation Summary The estimated ejection fraction is 55-60 %. Buble study not well visualized No rior study to compare Ordering Physician: Annmarie Al Referring Physician: Scott Mejia Performed By: Mirian Rubin, SAM, RVT Rhythm Strip Rhythm Strip: Sinus Rhythm Rate: 55 Ectopy: None Physical Exam Const Orientation / Consciousness: awake, oriented to person, oriented to place and oriented to time Eyes EOMs intact bilaterally Resp normal respiratory effort Neuro Neuro Narrative: Awake, alert, oriented X3 Speech fluent no dysarthria Cranial nerves 2-12 intact Left upper extremity mild drift, mild left hand weakness (better than yesterday.No leg drift Sensation intact No ataxia Psych Attitude: calm Subject: Neurology Subjective SARTHAK PUTNAM Jr. is a 68 year old M, who we are seeing in consultation today for advice on the management of stroke and related patient care. Improving left sided weakness. Assessment and Plan: Stroke Assessment/Plan VIVI PUTNAM Jr. is a 68 M with a history of HTN, HLD, CAD who presents for evaluation of left sided weakness following a lung biopsy. Neurological examination shows Left sided weakness that has markedly today. Neuroimaging shows CT head: Negative, CTA: No LVO, MRI Brain: No acute stroke. Hba1C :5.8, LDL: 98. Suspect clinical stroke although MRI negative of cryptogenic in etiology. Recommend Continue ASA, Plavix for 3 weeks then ASA alone Statin to keep LDL <70 ECHO: EF okay If negative. Will need 30 Day android ui developer on discharge Permissive hypertension in acute phase and long term acute care registered nurse will need it to be <130 mm Hg PT/OT eval Speech and swallow eval Smoking cessation Stroke education Thanks for the consult I spent 35 min in evaluation, reviewing the diagnostics and coordination and care. Debbie Morrell 10/14/23 7898 <Electronically signed by Debbie Morrell MD> Cosigner Signature (if applicable): CC: ~ Signed [facility] Work Phone: 1(540) 223-194901-21-2024 Progress note Author Annmarie Al [facility] October 14, 2023 11:47am Note Date/Time October 14, 2023 8 :04am [facility] Medical Records Department [address] [place] [address] [place] [address] Progress Note - Hospitalist 10/14/23 0802 MR#: [id number] Acct: [id number] Name: SARTHAK PUTNAM Jr. Rep #:[id number] : 1955 68 From: Annmarie Al MD PCP: Dr. Scott Mejia MD Status:ADM I N Location: [place] [address] Reason for Visit Reason for Visit: Diagnoses Nicotine dependence, cigarettes, uncomplicated (10/13/23) Chronic obstructive pulmonary disease, unspecified (10/13/23) Postprocedural pneumothorax (10/13/23) Gastro-esophageal reflux disease without esophagitis (10/13/23) Solitary pulmonary nodule (10/13/23) Subjective Subjective Strengthen hand continues to improve, breathing stable Objective Data Objective Data Vital Signs: Vital Signs Temp Pulse Resp BP Pulse Ox O2 Del Method O2 Flow Rate 97.7 F L 84 18 158/99 H 93 Room Air 1 10/14/23 04:00 10/14/23 04:00 10/14/23 04:00 10/14/23 04:00 10/14/23 04:00 10/14/23 04:00 10/13/23 09:53 Oxygen Flow Rate (L/min) 1 Oxygen Delivery Method Room Air Weight: 74.2 kg Body Mass Index (BMI) 24.1 Intake & Output: Intake and Output for Last 24 Hours 10/12/23 10/13/23 10/14/23 23:59 23:59 23:59 Intake Total 200 / 320 1180 / 1180 Output Total 0 / 0 1500 / 1500 900 / 900 Balance 200 / 320 -320 / -320 -900 / -900 Lab / Micro Data 10/14/23 05:38 10/14/23 05:38 Labs: Laboratory Results - last 24 hr 10/14/23 05:38: WBC 6.0, RBC 4.67, Hgb 14.4, Hct 42.6, MCV 91.2, MCH 30.8, MCHC 33.8, RDW Std Deviation 43.1, RDW Coeff of Juliane 13.1, Plt Count 222, MPV 9.0, Immature Gran % (Auto) 0.800, Neut % (Auto) 61.2, Lymph % (Auto) 23.2, Norman % (Auto) 9.8, Eos % (Auto) 4.0, Baso % (Auto) 1.0, Absolute Neuts (auto) 3.7, Absolute Lymphs (auto) 1.39, Nucleated RBC % 0, Sodium 138, Potassium 3.8, Chloride 108 H, Carbon Dioxide 26.0, Anion Gap 4 L, BUN 21 H, Creatinine 0.86, Estim Creat Clear Calc 81.07, Est GFR (MDRD) Af Amer 114, Est GFR (MDRD) Non-Af 94, BUN/Creatinine Ratio 24.5 H, Glucose 86, Calcium 8.7 Radiography Diagnostic Testing: Radiology Impression Echocardiogram 10/12/23 16:42 Interpretation Summary The estimated ejection fraction is 55-60 %. Buble study not well visualized No rior study to compare Ordering Physician: Annmarie Al Referring Physician: Scott Mejia Performed By: Mirian Rubin, RDCS, RVT Chest X-Ray 10/13/23 08:00 IMPRESSION: No evidence of pneumothorax. Residual pneumonia/atelectasis right upper lobe. Electronically Signed: Cyrus Hartmann MD at 8:24 EST Reading Location ID and State: [address] [place] [address] Tel , Service support , Rhythm Strip Rhythm Strip: Sinus Rhythm Rate: 55 Ectopy: None Physical Exam Narrative General: Alert, oriented, no apparent distress HEENT: Atraumatic, normocephalic Eyes: Anicteric, normal conjunctiva, extraocular movements grossly intact Neck: Supple Respiratory: Scattered wheezes on right, normal respiratory effort Cardiovascular: Regular rate and rhythm GI: Soft, nontender, nondistended Extremities: No edema Musculoskeletal: Bilateral lower extremities 5 out of 5, right upper extremity 5out of 5, left upper extremity 4+/5 Neuro: Weakness of left upper extremity compared to right Skin: No rashes appreciated Psych: Cooperative Assessment & Plan Assessment/Plan (1) Iatrogenic pneumothorax: (2) Lung nodule: (3) Nicotine dependence, cigarettes, uncomplicated: (4) COPD (chronic obstructive pulmonary disease): (5) GERD (gastroesophageal reflux disease): PLAN: Plan # Cryptogenic CVA -Patient had stroke call 1537 with last known well 1230 at time of assessment [facility]. NIH of 9, patient unable to move left arm and has left-sided visual field defect, taken to CAT scan and CT and CTA obtained which were negative. Patient evaluated by stroke neurologist and stroke neurologist discussed with proceduralist who did biopsy and chest tube and given bleeding with the biopsy it was felt risks of bleeding were too high to proceed with TNK, stroke neurologist discussed with family and patient. It was advised that patient be given 81 mg of aspirin today and tomorrow loaded with 150 of Plavix followed by DAPT for 21 days and then aspirin indefinitely, monitor on telemetry and high intensity statin, lipid panel and A1c in the a.m., permissive hypertension [facility]. If no A-fib or other source found it is recommended the patient have cardiac cath lab manager on DC. Stroke order set entered. All questions answered -10/13: MRI read out as negative however left upper extremity still weaker than right (though is improving) and patient with balance difficulty necessitating max assist with 2 for mobility and ADLs, echo pending, patient has been normal sinus rhythm on telemetry, awaiting neurology reevaluation given symptoms and imaging discordance. Patient was on aspirin yesterday and had been started on Plavix today -10/14: Reevaluated by neurology, still suspected that this was cryptogenic stroke, patient still with decreased movement in left hand, though this continues to improve, and balance difficulties, will need placement, continue aspirin and Plavix as DAPT for 21 days then aspirin indefinitely, is on telemetry no A-fib yet or other source so will need Holter on discharge, echo performed but not well-visualized, discussed with neurology and it was advised the 30-day monitor on discharge but no need to pursue KATI at this time and no need for repeat MRI at this time #Iatrogenic pneumothorax on right s/p chest tube -During lung biopsy, immediately identified and brought to ED w/ chest tube placed -Pulm c/s -CXR w/ resolution of pneumothorax with tube placement and air removeal -Pain control -I/s -10/13: Chest tube removed, patient breathing well, to have repeat chest x-ray -10/14: Doing well status post removal, continue present management #Lung mass -Follows w/ pulm on outpt basis -10/14: Will need to continue following with pulmonology, path pending from lung mass biopsies #GERD -Continue PPI #Tobacco use -Advise cessation -Patient refuses nicotine replacement #DVT ppx: SCDs Annmarie Al MD Time spent in the patient's overall evaluation,decision-making process, review of diagnostic data, adjustment of management, discussion with other providers, nursing nursing and ancillary staff involved in patient's care documentation, 36minutes Charges/Coding Visit Charges Inpatient E&M: 99310 Subs Hosp L2 10/14/23 1147 <Electronically signed by Annmarie Al MD> Cosigner Signature (if applicable): CC: ~ Signed [facility] Work Phone: 1(348) 334-739001-20-2024 Consult note Author Debbie Morrell [facility] October 13, 2023 12:45pm Note Date/Time October 13, 2023 1 2:20pm [facility] Medical Records Department [address] [place] [address] Consultation - Neurology 10/13/23 1213 MR#: [id number] Acct: [id number] Name: SARTHAK PUTNAM Jr. Rep #:[id number] : 1955 68 From: Debbie Morrell MD PCP: Dr. Scott Mejia MD Status:ADM I N Location: [place] [address] Assessment and Plan: Stroke Assessment/Plan SARTHAK PUTNAM Jr. is a 68 M with a history of HTN, HLD, CAD who presents for evaluation of left sided weakness following a lung biopsy. Neurological examination shows Left sided weakness that is improving. Neuroimaging shows CT head: Negative, CTA: No LVO, MRI Brain: No acute stroke. Hba1C :5.8, LDL: 98. Suspect clinical stroke although MRI negative of cryptogenicin etiology Recommend Continue ASA, Plavix for 3 weeks then ASA alone Statin to keep LDL <70 recommend Echo. If negative will need 30 Day android ui developer on discharge Permissive hypertension in acute phase and group home will need it normal PT/OT eval Speech and swallow eval Smoking cessation Stroke education Thanks for the consult I spent 73 min in evaluation, reviewing the diagnostics and coordination and care. Debbie Morrell HPI Consult Data Date of Consult: 10/13/23 HPI Narrative HPI Narrative: SARTHAK PUTNAM, is a 68 M who presents COPD, GERD, HLD, Lung mass, smoking who presents for evaluation of left sided weakness following a lung biopsy. This wascomplicated by syncope and phenumothora which required a chest tube placement. Stroke code called at 1537 with last known well 1230 at time of assessment. He was noticed to have an NIH of 9, patient unable to move left arm and has left-sided visual field defect, taken to CAT scan and CT and CTA obtained which were negative. Given the risk of bleeding was too high to proceed with TNK, this was deferred. It was advised that patient be given 81 mg of aspirin today and loadedwith 150 of Plavix (from 1/200 followed by DAPT for 21 days and then aspirin indefinitely. He is feeling better but his left hand still remains weak. [facility] Home Medications aspirin 81 mg tablet,delayed release 81 mg PO DAILY 09/26/23 [History Last Taken 10/11/23] atorvastatin 40 mg tablet 40 mg PO DAILY 09/26/23 [History Last Taken 10/11/23] pantoprazole 40 mg tablet,delayed release 40 mg PO DAILY 09/26/23 [History Last Taken 10/12/23] gabapentin 300 mg capsule 300 mg PO QHS 10/11/23 [History Last Taken 10/11/23] Allergy/AdvReac Type Severity Reaction Status Date / Time No Known Allergies Allergy Unverified 09/26/23 08:43 Social History Smoking Status: Current every day smoker tobacco type: cigarettes second hand exposure: Yes Vital Signs Vital Signs Vital Signs: 10/12/23 12:42 10/12/23 15:37 10/12/23 12:30 Temperature 97.8 F 97.7 F L Temperature Source Temporal Oral Pulse Rate 83 96 Pulse Strength Respiratory Rate 28 H 18 Respiratory Effort Respiratory Depth Shallow Respiratory Pattern Normal Blood Pressure 149/101 H 142/88 H Blood Pressure Mean 117 106 Blood Pressure Source Monitor Blood Pressure Position Semi-Fowlers Blood Pressure Location Left Arm Pulse Ox 97 96 Oxygen Delivery Method Nasal Cannula Nasal Cannula Nasal Cannula Oxygen Flow Rate (L/min) 2 2 10/12/23 18:00 10/12/23 16:00 10/12/23 19:27 Temperature Temperature Source Pulse Rate 82 Pulse Strength Respiratory Rate 22 H Respiratory Effort Respiratory Depth Shallow Respiratory Pattern Normal Blood Pressure 135/91 H Blood Pressure Mean 105 Blood Pressure Source Blood Pressure Position Blood Pressure Location Pulse Ox 96 96 Oxygen Delivery Method Nasal Cannula Nasal Cannula Nasal Cannula Oxygen Flow Rate (L/min) 2 2 1.5 10/12/23 19:27 10/12/23 21:30 10/12/23 21:44 Temperature 97.4 F L Temperature Source Temporal Pulse Rate 74 Pulse Strength Respiratory Rate 17 17 Respiratory Effort Normal Normal Non-Labored Respiratory Depth Normal Normal Respiratory Pattern Normal Normal Blood Pressure 118/78 Blood Pressure Mean 91 Blood Pressure Source Monitor Blood Pressure Position Supine Blood Pressure Location Left Arm Pulse Ox 96 95 Oxygen Delivery Method Nasal Cannula Room Air Nasal Cannula Oxygen Flow Rate (L/min) 1.5 1.5 10/13/23 01:30 10/13/23 05:30 10/13/23 07:25 Temperature 97.9 F 97.9 F Temperature Source Temporal Temporal Pulse Rate 71 78 Pulse Strength Respiratory Rate 18 14 Respiratory Effort Respiratory Depth Respiratory Pattern Blood Pressure 140/96 H 152/92 H Blood Pressure Mean 110 112 Blood Pressure Source Monitor Monitor Blood Pressure Position Supine Supine Blood Pressure Location Right Arm Right Arm Pulse Ox 94 94 94 Oxygen Delivery Method Room Air Room Air Nasal Cannula Oxygen Flow Rate (L/min) 1 10/13/23 09:30 10/13/23 09:53 10/13/23 09:30 Temperature 98.2 F Temperature Source Oral Pulse Rate 73 Pulse Strength Normal (2+) Respiratory Rate 18 Respiratory Effort Respiratory Depth Respiratory Pattern Blood Pressure 138/97 H Blood Pressure Mean 110 Blood Pressure Source Monitor Blood Pressure Position Semi-Fowlers Blood Pressure Location Left Arm Pulse Ox 95 Oxygen Delivery Method Nasal Cannula Oxygen Flow Rate (L/min) 1 1 10/13/23 09:30 10/13/23 12:01 Temperature 98.2 F Temperature Source Oral Pulse Rate 83 Pulse Strength Respiratory Rate 16 Respiratory Effort Normal Non-Labored Respiratory Depth Normal Respiratory Pattern Normal Blood Pressure 163/96 H Blood Pressure Mean 118 Blood Pressure Source Monitor Blood Pressure Position Semi-Fowlers Blood Pressure Location Right Arm Pulse Ox 95 93 Oxygen Delivery Method Nasal Cannula Room Air Oxygen Flow Rate (L/min) 1 Weight Weight: 74.2 kg Body Mass Index (BMI) 24.1 EEG Results Procedure Details EEG Procedure Details: SARTHAK PUTNAM Jr. is a 68 year old M with a past medical history of , who presents for evaluation of Electroencephalogram on DATE at TIME NIHSS NIHSS Nursing Documentation NIHSS Nursing Documentation: NIHSS: Ischemic Stroke/TIA Start: 10/12/23 16:37 Text: For PCU Patients: NIH and Neuro Check every 4 Status: Active hours and PRN Freq: [id number] Protocol: Activity Type Activity Date Activity User E-sign Co-sign Detail Recorded Client Recorded Date Recorded By Document 10/13/23 12:00 HS Desktop 10/13/23 12:00 HS 10/13/23 12:00 NIH Stroke Scale [NIHSS] A score of 0 is normal or asymptomatic . Total possible score is 42. Inpatient: RN or Physician to activate a stroke alert for onset of new stroke symptoms or with NIHSS increase >/= 3 points. Following change in neurological status, NIHSS will be performed per physician order or more frequently PRN. -1a. Level of Consciousness Alert; keenly responsive -1b. LOC Questions Answers BOTH questions correctly. -1c. LOC Commands Performs both tasks correctly . -2. Best Gaze Normal -3. Visual No visual loss -4. Facial Palsy Normal symmetrical movements -5a. Left Arm Drift; arm drifts downward but doesn?t hit the bed -5b. Right Arm No drift; arm holds 90 (or 45 ) degrees for full 10 seconds -6a. Left Leg Drift; leg falls by the end of 5- seconds, but does not hit bed -6b. Right Leg No drift; leg holds 30-degree position for full 5 seconds -7. Limb Ataxia Absent -8. Sensory Normal; no sensory loss -9. Best Language No aphasia; normal -10. Dysarthria Normal -11. Extinction and Inattention No abnormality -Total 2 Query Text:A score of 0 is normal or asymptomatic. Total possible score is 42 . ED: Notify Physician for NIHSS increase by > / = 3 points. Inpatient: RN or Physician to activate a stroke alert for NIHSS increase of > / = 3 points. Coma Scale [Assess] -Eye Opening Spontaneous -Motor Obeys Commands -Verbal Oriented [Total] -Coma Scale Total 15 NIHSS 1a. Level of Consciousness: Alert; keenly responsive 1b. LOC Questions: Answers BOTH questions correctly. 1c. LOC Commands: Performs both tasks correctly. 2. Best Gaze: Normal 3. Visual: No visual loss 4. Facial Palsy: Normal symmetrical movements 5a. Left Arm: Drift; arm drifts downward but doesn?t hit the bed 5b. Right Arm: No drift; arm holds 90 (or 45) degrees for full 10 seconds 6a. Left Leg: Drift; leg falls by the end of 5-seconds, but does not hit bed 6b. Right Leg: No drift; leg holds 30-degree position for full 5 seconds 7. Limb Ataxia: Absent 8. Sensory: Normal; no sensory loss 9. Best Language: No aphasia; normal 10. Dysarthria: Normal 11. Extinction and Inattention: No abnormality Total: 2 Stroke Questions a.Reviewed Inclusion/Exclusion criteria: Yes Was Patient considered for Endovascular Intervention?: No IV Thrombolytic Administered: No No contraindications from thrombolytic administration: No Risks, Benefits, Alternatives Discussed: Yes Not given: Patient refusal: Yes Physical Exam HEENT Head and Scalp: normal to inspection, normocephalic and atraumatic Eyes EOMs intact bilaterally Neck no JVD Resp normal respiratory effort Cardio no JVD GI normal to inspection, nondistended, normoactive bowel sounds Extremity normal to inspection Neuro Neuro Narrative: Awake, alert, oriented X3 Speech fluent no dysarthria Cranial nerves 2-12 intact Left hemiparesis Sensation intact No ataxia Lab / Micro Data 10/13/23 06:24 10/13/23 06:21 Labs: Laboratory Results - last 24 hr 10/12/23 15:39: POC Glucose 149 H 10/13/23 06:21: Sodium 138, Potassium 3.8, Chloride 108 H, Carbon Dioxide 27.0, Anion Gap 3 L, BUN 21 H, Creatinine 0.97, Estim Creat Clear Calc 71.87, Est GFR (MDRD) Af Amer 99, Est GFR (MDRD) Non-Af 82, BUN/Creatinine Ratio 21.6 H, Glucose 104, Hemoglobin A1c 5.8 H, Calcium 8.9, Triglycerides 70, Cholesterol 160, LDL Cholesterol 98, VLDL Cholesterol 14, HDL Cholesterol 48, TSH 2.22 10/13/23 06:24: WBC 6.7, RBC 4.72, Hgb 14.5, Hct 43.9, MCV 93.0, MCH 30.7, MCHC 33.0, RDW Std Deviation 45.3 H, RDW Coeff of Jluiane 13.2, Plt Count 230, MPV 8.9, Immature Gran % (Auto) 1.300 H, Neut % (Auto) 64.0, Lymph % (Auto) 22.3, Norman % (Auto) 8.9, Eos % (Auto) 3.1, Baso % (Auto) 0.4, Absolute Neuts (auto) 4.3, Absolute Lymphs (auto) 1.50, Nucleated RBC % 0 Rhythm Strip Rhythm Strip: Sinus Rhythm Rate: 55 Ectopy: None Imagaing Radiology Impression Brain CT 10/12/23 15:40 IMPRESSION: No acute intracranial findings. Electronically Signed: Juan Diego Heller MD at 16:13 EST , ADDENDUM: 10/12/23 1631 IMPRESSION: No acute intracranial findings. N.B. : The above Results were Read Back by Juan Diego Heller MD to Annmarie Al MD, and understanding confirmed on 10/12/2023 16:24:32 (ET). Electronically Signed: Juan Diego Heller MD at 16:13 EST , Head/Neck CTA 10/12/23 15:54 IMPRESSION: Negative CTA Head and Neck. Right apical infiltrate with small pneumothorax. Electronically Signed: Juan Diego Heller MD at 16:26 EST , ADDENDUM: 10/12/23 1640 IMPRESSION: undefined Brain MRI 10/12/23 16:42 IMPRESSION: Chronic microvascular ischemic changes. No intracranial hemorrhage, acute infarct, or space occupying lesion seen on this noncontrast MRI of the brain. Electronically Signed: Juan Diego Heller MD at 18:53 EST , Chest X-Ray 10/13/23 06:30 IMPRESSION: 1. No pneumothorax. 2. Decreased patchy opacity right upper lobe. Electronically Signed: Carole Wang MD at 7:24 EST , Chest X-Ray 10/13/23 08:00 IMPRESSION: No evidence of pneumothorax. Residual pneumonia/atelectasis right upper lobe. Electronically Signed: Cyrus Hartmann MD at 8:24 EST , Active Medications Active Medications Active Medications: Current Medications Generic Name Dose Route Start Last Admin Trade Name Freq PRN Reason Stop Dose Admin Acetaminophen 1,000 mg 10/12/23 14:00 10/13/23 05:07 Acetaminophen 500 Mg Tablet PO 1,000 mg Q8 ANDERS Administration Albuterol Sulfate 2.5 mg 10/12/23 12:16 Albuterol 2.5 Mg/3 Ml Vial.Neb. INHALATION Q2H PRN PRN SOB/Wheezing Aspirin 81 mg 10/12/23 17:00 10/13/23 09:34 Aspirin 81 Mg Tab.Chew PO 81 mg BREAKFAST ANDERS Administration Atorvastatin Calcium 80 mg 10/13/23 22:00 Atorvastatin Calcium 80 Mg Tablet PO QHS ANDERS Clopidogrel Bisulfate 75 mg 10/14/23 10:00 Clopidogrel Bisulfate 75 Mg Tablet PO DAILY ANDERS Gabapentin 300 mg 10/12/23 22:00 10/12/23 20:23 Gabapentin 300 Mg Capsule PO 300 mg QHS ANDERS Administration Hydralazine HCl 5 mg 10/12/23 16:36 Hydralazine 20 Mg/Ml Vial IV Q30M PRN to maintain BP goals Sodium Chloride 250 mls @ 15 mls/hr 10/12/23 12:38 IV .[id number] PRN Additional IVPB Infusion Sodium Chloride 250 mls @ 15 mls/hr 10/12/23 12:38 IV .[id number] PRN Saline Flush Iopamidol 0 ml 10/12/23 16:00 10/13/23 11:41 Contrast Allergy Safety Check IV Not Given X1 ANDERS Labetalol HCl 10 - 20 mg 10/12/23 16:36 Labetalol (Prefilled) 20 Mg/4 Ml IV Q10M PRN PRN to Maintain BP Goals Melatonin 3 mg 10/12/23 12:16 Melatonin 3 Mg Tablet PO QHS PRN PRN INSOMNIA Morphine Sulfate 2 mg 10/12/23 12:16 10/12/23 12:34 Morphine 2 Mg/Ml Syringe IV 2 mg Q3H PRN PRN Administration Pain Score 6-10 Ondansetron HCl 4 mg 10/12/23 12:16 Ondansetron 4 Mg/2 Ml Vial IV Q8H PRN PRN NAUSEA/VOMITING Oxycodone HCl 5 mg 10/12/23 12:16 10/12/23 15:10 Oxycodone 5 Mg Tablet PO 5 mg Q4H PRN PRN Administration Pain Score 4-10 Pantoprazole Sodium 40 mg 10/13/23 10:00 10/13/23 09:34 Pantoprazole Sodium 40 Mg Tablet PO 40 mg DAILY ANDERS Administration Senna/Docusate Sodium 2 tablet 10/12/23 12:16 Senna/Docusate Sodium 1 Tablet PO BID PRN PRN Constipation Sodium Chloride 10 - 40 ml 10/12/23 12:38 0.9% Saline Lock 10 Ml Syringe IV UD PRN SALINE FLUSH 10/13/23 1245 <Electronically signed by Debbie Morrell MD> Cosigner Signature (if applicable): CC: Leyda Ramos; Aida Chaparro; Lupe Meza; Geovany Tellez; Mary Mcclure MD; Debbie Morrell MD; Raf Murillo MD; Dr. Ofelia Parson MD; Dr. Sina Junior MD; Dr. Hermelindo Combs MD; Dr. Mannie Ibarra DO; Dr. Neil Ozuna MD; Dr. Drew Gooden MD; Dr. Fabi Koo MD; Dr. Ruben Cat MD; Dr. Theo Wu MD; Dr. Griselda Ruiz MD; Dr. Maylin Pantoja MD; Dr. Nick Noyola DO; Dr. Mariah Ayala MD; Dr. Naveen High MD; Dr. Scott Mejia MD; Dr. Gab Doty MD; Dr. Yaquelin Hurtado MD; Dr. Pasha Ayon MD; Dr. Abhijeet Jessica MD; Dr. Allan Zarate MD; Dr. Marilou Gallego MD; Dr. Jl Murphy MD; Dr. Lashawn Kumar MD; Lindsay Montana DO; Tesfaye Nunez MD~ Signed [facility] Work Phone: [phone] 836-884701-20-2024 Progress note Author Annmarie Al [facility] October 13, 2023 12:17pm Note Date/Time October 13, 2023 1 0:54am [facility] Medical Records Department [address] [place] [id number] Progress Note - Hospitalist 10/13/23 1054 MR#: [id number] Acct: [id number] Name: SARTHAK PUTNAM Jr. Rep #:[id number] : 1955 68 From: Annmarie Al MD PCP: Dr. Scott Mejia MD Status:ADM I N Location: [place] [address] Reason for Visit Reason for Visit: Diagnoses Nicotine dependence, cigarettes, uncomplicated (10/12/23) Chronic obstructive pulmonary disease, unspecified (10/12/23) Postprocedural pneumothorax (10/12/23) Gastro-esophageal reflux disease without esophagitis (10/12/23) Solitary pulmonary nodule (10/12/23) Subjective Subjective Patient's movement is improving however still has difficulties with balance and still has left upper extremity weakness specifically hand weakness albeit betterthan yesterday, breathing doing well even after chest tube discontinued Objective Data Objective Data Vital Signs: Vital Signs Temp Pulse Resp BP Pulse Ox O2 Del Method O2 Flow Rate 98.2 F 73 18 138/97 H 95 Nasal Cannula 1 10/13/23 09:30 10/13/23 09:30 10/13/23 09:30 10/13/23 09:30 10/13/23 09:30 10/13/23 09:30 10/13/23 09:53 Oxygen Flow Rate (L/min) 1 Oxygen Delivery Method Nasal Cannula Weight: 74.2 kg Body Mass Index (BMI) 24.1 Intake & Output: Intake and Output for Last 24 Hours 10/11/23 10/12/23 10/13/23 23:59 23:59 23:59 Intake Total 200 / 320 360 / 360 Output Total 0 / 0 300 / 300 Balance 200 / 320 60 / 60 Lab / Micro Data 10/13/23 06:24 10/13/23 06:21 Labs: Laboratory Results - last 24 hr 10/12/23 15:39: POC Glucose 149 H 10/13/23 06:21: Sodium 138, Potassium 3.8, Chloride 108 H, Carbon Dioxide 27.0, Anion Gap 3 L, BUN 21 H, Creatinine 0.97, Estim Creat Clear Calc 71.87, Est GFR (MDRD) Af Amer 99, Est GFR (MDRD) Non-Af 82, BUN/Creatinine Ratio 21.6 H, Glucose 104, Hemoglobin A1c 5.8 H, Calcium 8.9, Triglycerides 70, Cholesterol 160, LDL Cholesterol 98, VLDL Cholesterol 14, HDL Cholesterol 48, TSH 2.22 10/13/23 06:24: WBC 6.7, RBC 4.72, Hgb 14.5, Hct 43.9, MCV 93.0, MCH 30.7, MCHC 33.0, RDW Std Deviation 45.3 H, RDW Coeff of Juliane 13.2, Plt Count 230, MPV 8.9, Immature Gran % (Auto) 1.300 H, Neut % (Auto) 64.0, Lymph % (Auto) 22.3, Norman % (Auto) 8.9, Eos % (Auto) 3.1, Baso % (Auto) 0.4, Absolute Neuts (auto) 4.3, Absolute Lymphs (auto) 1.50, Nucleated RBC % 0 Radiography Diagnostic Testing: Radiology Impression Brain CT 10/12/23 15:40 IMPRESSION: No acute intracranial findings. Electronically Signed: Juan Diego Heller MD at 16:13 EST , ADDENDUM: 10/12/23 1631 IMPRESSION: No acute intracranial findings. N.B. : The above Results were Read Back by Juan Diego Heller MD to Annamrie Al MD, and understanding confirmed on 10/12/2023 16:24:32 (ET). Electronically Signed: Juan Diego Heller MD at 16:13 EST , Head/Neck CTA 10/12/23 15:54 IMPRESSION: Negative CTA Head and Neck. Right apical infiltrate with small pneumothorax. Electronically Signed: Juan Diego Heller MD at 16:26 EST , ADDENDUM: 10/12/23 1640 IMPRESSION: undefined Brain MRI 10/12/23 16:42 IMPRESSION: Chronic microvascular ischemic changes. No intracranial hemorrhage, acute infarct, or space occupying lesion seen on this noncontrast MRI of the brain. Electronically Signed: Juan Diego Heller MD at 18:53 EST , Chest X-Ray 10/13/23 06:30 IMPRESSION: 1. No pneumothorax. 2. Decreased patchy opacity right upper lobe. Electronically Signed: Carole Wang MD at 7:24 EST , Chest X-Ray 10/13/23 08:00 IMPRESSION: No evidence of pneumothorax. Residual pneumonia/atelectasis right upper lobe. Electronically Signed: Cyrus Hartmann MD at 8:24 EST , Rhythm Strip Rhythm Strip: Sinus Rhythm Rate: 55 Ectopy: None Physical Exam Narrative General: Alert, oriented, no apparent distress HEENT: Atraumatic, normocephalic Eyes: Anicteric, normal conjunctiva, extraocular movements grossly intact Neck: Supple Respiratory: Scattered wheezes on right, normal respiratory effort Cardiovascular: Regular rate and rhythm GI: Soft, nontender, nondistended Extremities: No edema Musculoskeletal: Bilateral lower extremities 5 out of 5, patient significantly weaker however in left upper extremity compared to right especially with handgrip Neuro: Weakness of left upper extremity compared to right Skin: No rashes appreciated Psych: Cooperative Assessment & Plan Assessment/Plan (1) Iatrogenic pneumothorax: (2) Lung nodule: (3) Nicotine dependence, cigarettes, uncomplicated: (4) COPD (chronic obstructive pulmonary disease): (5) GERD (gastroesophageal reflux disease): PLAN: Plan # Stroke rule out -Patient had stroke call [phone] with last known well 1230 at time of assessment [facility]. NIH of 9, patient unable to move left arm and has left-sided visual field defect, taken to CAT scan and CT and CTA obtained which were negative. Patient evaluated by stroke neurologist and stroke neurologist discussed with proceduralist who did biopsy and chest tube and given bleeding with the biopsy it was felt risks of bleeding were too high to proceed with TNK, stroke neurologist discussed with family and patient. It was advised that patient be given 81 mg of aspirin today and tomorrow loaded with 150 of Plavix followed by DAPT for 21 days and then aspirin indefinitely, monitor on telemetry and high intensity statin, lipid panel and A1c in the a.m., permissive hypertension [facility]. If no A-fib or other source found it is recommended the patient have cardiac cath lab manager on DC. Stroke order set entered. All questions answered -10/13: MRI read out as negative however left upper extremity still weaker than right (though is improving) and patient with balance difficulty necessitating max assist with 2 for mobility and ADLs, echo pending, patient has been normal sinus rhythm on telemetry, awaiting neurology reevaluation given symptoms and imaging discordance. Patient was on aspirin yesterday and had been started on Plavix today #Iatrogenic pneumothorax on right s/p chest tube -During lung biopsy, immediately identified and brought to ED w/ chest tube placed -Pulm c/s -CXR w/ resolution of pneumothorax with tube placement and air removeal -Pain control -I/s -10/13: Chest tube removed, patient breathing well, to have repeat chest x-ray #Lung mass -Follows w/ pulm on outpt basis #GERD -Continue PPI #Tobacco use -Advise cessation -Patient refuses nicotine replacement #DVT ppx: SCDs Annmarie Al MD Time spent in the patient's overall evaluation,decision-making process, review of diagnostic data, adjustment of management, discussion with other providers, nursing nursing and ancillary staff involved in patient's care documentation, 45minutes Charges/Coding Visit Charges Inpatient E&M: 60362 Subs Hosp L2 10/13/23 1217 <Electronically signed by Annmarie Al MD> Cosigner Signature (if applicable): CC: ~ Signed [facility] Work Phone: 1([phone] 651-106901-20-2024 Consult note Author Mannie Ibarra [facility] October 13, 2023 7:42am Note Date/Time October 13, 2023 7 :27am [facility] Medical Records Department [address] [place] [address] Consultation - Highway Safety Engineer 10/13/23 0725 MR#: [id number] Acct: [id number] Name: SARTHAK PUTNAM Jr. Rep #:[id number] : 1955 68 From: Mannie Ibarra DO PCP: Dr. Scott Mejia MD Status:ADM I NO Location: [place] [address] Assessment & Plan Assessment/Plan (1) Iatrogenic pneumothorax: PLAN: Plan RECOMMENDATIONS: 1. Thoracic vent removed this morning. Obtain follow-up chest x-ray in 1 hour. 2. A follow-up chest imaging is stable, the patient can be discharged home and follow-up in the pulmonary medicine clinic as scheduled. IMPRESSIONS: 1. Iatrogenic pneumothorax The patient sustained an iatrogenic pneumothorax following CT-guided lung biopsydue to a PET positive pulmonary nodule in the right upper lobe. He underwent thoracic vent placement with subsequent resolution of the pneumothorax. The patient is stable from a respiratory perspective this morning. Therefore, the thoracic vent was removed. Recommend obtaining follow-up chest x-ray in approximately 1 hour. If stable, the patient can be discharged home with outpatient pulmonary follow-up as scheduled. This note was generated with [employer] dictation software. It may contain incorrectwords, spelling, and punctuation that were not noted in checking the note beforesigning. HPI Consult Data Date of Consult: 10/13/23 HPI Narrative Reason for Consultation: Iatrogenic pneumothorax HPI Narrative: The patient is a 68-year-old male, with a history as outlined below, who presented to the hospital on October [address]-guided lung biopsy. The patient had just been referred to the outpatient pulmonary office on September 26 for the evaluation of a pulmonary nodule. The patient underwent a low-dose CT screening in mid July 2023, which demonstrated a 9.6 mm nodule in the posterior aspect of the right upper lobe. The patient's primary care provider then ordered a follow-up CT scan in mid August 2023, which again confirmed a 9.6 mm nodule in the right upper lobe. He then went on to complete a PET scan, which was completed on September 18, 2023, which revealed increased uptake in theright upper lobe with an SUV of 3.1. The patient has an approximate 33-oalx-xwjilddxicj history and continues to smoke 0.5 packs of cigarettes per day. In addition to his personal smoking history, he did grow up in a smoking household. 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 Unfortunately, the patient developed an iatrogenic pneumothorax, which was medically managed with thoracic vent placement. Follow-up chest imaging demonstrated resolution of the noted pneumothorax. [facility] Home Medications aspirin 81 mg tablet,delayed release 81 mg PO DAILY 09/26/23 [History Last Taken 10/11/23] atorvastatin 40 mg tablet 40 mg PO DAILY 09/26/23 [History Last Taken 10/11/23] pantoprazole 40 mg tablet,delayed release 40 mg PO DAILY 09/26/23 [History Last Taken 10/12/23] gabapentin 300 mg capsule 300 mg PO QHS 10/11/23 [History Last Taken 10/11/23] Allergy/AdvReac Type Severity Reaction Status Date / Time No Known Allergies Allergy Unverified 09/26/23 08:43 Social History Smoking Status: Current every day smoker tobacco type: cigarettes second hand exposure: Yes ROS ROS Narrative 10 systems were reviewed with pertinent positives as noted in the HPI above. Physical Exam Const alert, oriented x3 and no apparent distress HEENT normocephalic, head/scalp atraumatic and moist oral mucous membranes Eyes PERRL, EOMs intact bilaterally and conjunctivae normal Neck supple General: trachea midline Chest inspection of chest normal Resp normal respiratory effort Resp Narrative: Right-sided thoracic vent in place. Auscultation: diminished lung sounds Cardio regular rate and regular rhythm GI normal to inspection, nondistended, normoactive bowel sounds Extremity no clubbing, cyanosis or edema Skin no rashes or lesions noted Neuro oriented x3, CN's II-XII intact bilaterally, moves all extremities and no focal motor deficits Psych cooperative and affect normal Lab / Micro Data 10/13/23 06:24 10/13/23 06:21 Labs: Laboratory Results - last 24 hr 10/12/23 10:15: WBC 8.1, RBC 5.13, Hgb 15.5, Hct 48.4, MCV 94.3 H, MCH 30.2, MCHC 32.0, RDW Std Deviation 45.5 H, RDW Coeff of Juliane 13.1, Plt Count 263, MPV 8.6, Immature Gran % (Auto) 1.500 H, Neut % (Auto) 62.0, Lymph % (Auto) 26.8, Norman % (Auto) 6.9, Eos % (Auto) 1.7, Baso % (Auto) 1.1 H, Absolute Neuts (auto) 5.0, Absolute Lymphs (auto) 2.18, Nucleated RBC % 0, Sodium 142, Potassium 4.7, Chloride 109 H, Carbon Dioxide 28.0, Anion Gap 5, BUN 19 H, Creatinine 1.06, Estim Creat Clear Calc 0.00, Est GFR (MDRD) Af Amer 89, Est GFR (MDRD) Non-Af 74, BUN/Creatinine Ratio 17.9, Glucose 113 H, Calcium 8.8 10/12/23 15:39: POC Glucose 149 H 10/13/23 06:21: Sodium 138, Potassium 3.8, Chloride 108 H, Carbon Dioxide 27.0, Anion Gap 3 L, BUN 21 H, Creatinine 0.97, Estim Creat Clear Calc 71.87, Est GFR (MDRD) Af Amer 99, Est GFR (MDRD) Non-Af 82, BUN/Creatinine Ratio 21.6 H, Glucose 104, Calcium 8.9, Triglycerides 70, Cholesterol 160, LDL Cholesterol 98,VLDL Cholesterol 14, HDL Cholesterol 48, TSH 2.22 10/13/23 06:24: WBC 6.7, RBC 4.72, Hgb 14.5, Hct 43.9, MCV 93.0, MCH 30.7, MCHC 33.0, RDW Std Deviation 45.3 H, RDW Coeff of Juliane 13.2, Plt Count 230, MPV 8.9, Immature Gran % (Auto) 1.300 H, Neut % (Auto) 64.0, Lymph % (Auto) 22.3, Norman % (Auto) 8.9, Eos % (Auto) 3.1, Baso % (Auto) 0.4, Absolute Neuts (auto) 4.3, Absolute Lymphs (auto) 1.50, Nucleated RBC % 0 Rhythm Strip Rhythm Strip: Sinus Rhythm Rate: 55 Ectopy: None Imagaing Radiology Impression Chest X-Ray 10/12/23 10:25 IMPRESSION: Markedly improved to almost resolved right apical pneumothorax. Electronically Signed: Boogie Gallardo MD at 10:48 EST , Brain CT 10/12/23 15:40 IMPRESSION: No acute intracranial findings. Electronically Signed: Juan Diego Heller MD at 16:13 EST , ADDENDUM: 10/12/23 1631 IMPRESSION: No acute intracranial findings. N.B. : The above Results were Read Back by Juan Diego Heller MD to Annmarie Al MD, and understanding confirmed on 10/12/2023 16:24:32 (ET). Electronically Signed: Juan Diego Heller MD at 16:13 EST , Head/Neck CTA 10/12/23 15:54 IMPRESSION: Negative CTA Head and Neck. Right apical infiltrate with small pneumothorax. Electronically Signed: Juan Diego Heller MD at 16:26 EST , ADDENDUM: 10/12/23 1640 IMPRESSION: undefined Brain MRI 10/12/23 16:42 IMPRESSION: Chronic microvascular ischemic changes. No intracranial hemorrhage, acute infarct, or space occupying lesion seen on this noncontrast MRI of the brain. Electronically Signed: Juan Diego Heller MD at 18:53 EST , Chest X-Ray 10/13/23 06:30 IMPRESSION: 1. No pneumothorax. 2. Decreased patchy opacity right upper lobe. Electronically Signed: Carole Wang MD at 7:24 EST , Charges/Coding Visit Charges Inpatient E&M: 85045 Init Hosp L3 10/13/23 0742 <Electronically signed by Mannie Ibarra DO> Cosigner Signature (if applicable): CC: Leyda Ramos; Aida Chaparro; Lupe Meza; Geovany Tellez; Mary Mcclure MD;Debbie Morrell MD; Raf Murillo MD; Dr. Ofelia Parson MD; Dr. Sina Junior MD; Dr. Hermelindo Combs MD; Dr. Mannie Ibarra DO; Dr. Neil Ozuna MD; Dr. Drew Gooden MD; Dr. Fabi Koo MD; Dr. Ruben Cat MD; Dr. Theo Wu MD; Dr. Griselda Ruiz MD; Dr. Maylin Pantoja MD; Dr. Nick Noyola DO; Dr. Manas Ayala MD; Dr. Naveen High MD; Dr. Scott Mejia MD; Dr. Gab Doty MD; Dr. Yaquelin Hurtado MD; Dr. Pasha Ayon MD; Dr. Abhijeet Jessica MD; Dr. Allan Zarate MD; Dr. Marilou Gallego MD; Dr. Jl Murphy MD; Dr. Lashawn Kumar MD; Lindsay Montana DO; Tesfaye Nunez MD~ Signed [facility] Work Phone: 1(249) 868-859701-19-2024 Progress note Author Annmarie Al [facility] October 12, 2023 4:47pm Note Date/Time October 12, 2023 4 :47pm [facility] Medical Records Department [address] [place] [address] Progress Note - Hospitalist 10/12/23 1636 MR#: [id number] Acct: [id number] Name: SARTHAK PUTNAM Jr. Rep #:[id number] : 1955 68 From: Annmarie Al MD PCP: Dr. Scott Mejia MD Status:ADM I NO Location: [place] [address] Hospitalist Note Patient had stroke call 1537 with last known well 1230 at time of assessment to the floor. NIH of 9, patient unable to move left arm and has left-sided visual field defect, taken to CAT scan and CT and CTA obtained which were negative. Patient evaluated by stroke neurologist and stroke neurologist discussed with proceduralist who did biopsy and chest tube and given bleeding with the biopsy it was felt risks of bleeding were too high to proceed with TNK, stroke neurologist discussed with family and patient. It was advised that patient be given 81 mg of aspirin today and tomorrow loaded with 150 of Plavix followed by DAPT for 21 days and then aspirin indefinitely, monitor on telemetry and high intensity statin, lipid panel and A1c in the a.m., permissive hypertension [facility]. If no A-fib or other source found it is recommended the patient have cardiac cath lab manager on DC. Stroke order set entered. All questions answered 10/12/23 1647 <Electronically signed by Annmarie Al MD> Cosigner Signature (if applicable): CC: ~ Signed [facility] Work Phone: 1(391) 619-964101-19-2024 Discharge summary Author Justin Jim [facility] October 12, 2023 3:07pm Note Date/Time October 12, 2023 1 0:13am [facility] Medical Records Department [address] [place] [address] Emergency Department Summary 10/12/23 MR#: [id number] Acct: [id number] Name: SARTHAK PUTNAM Rep #:[id number] : 1955 68 From: Justin Jim MD PCP: Dr. Scott Mejia MD Status:ADM I NO Location: [place] [address] HPI History of Present Illness Chief Complaint: Shortness of Breath Informant: other (Radiology staff) Narrative Narrative: Patient was here in radiology getting an outpatient interventional radiology procedure for a lung mass biopsy, which was complicated by an iatrogenic pneumothorax right side. This was recognized immediately by the proceduralist, the patient had been given Versed 2 mg and fentanyl 50 mcg prior to the procedure, he was sedated more than expected from this, and he does have a history of COPD. He was brought over to the emergency department, and I met thepatient and staff in the resuscitation room, his vital signs are stable he is breathing 16-18 times per minute, he is not responsive. At the time of my evaluation upon arrival, the nurse practitioner from is in the process of placing an anterior thoracostomy tube[facility] Home Medications aspirin 81 mg tablet,delayed release 81 mg PO DAILY 09/26/23 [History Last Taken 10/11/23] atorvastatin 40 mg tablet 40 mg PO DAILY 09/26/23 [History Last Taken 10/11/23] pantoprazole 40 mg tablet,delayed release 40 mg PO DAILY 09/26/23 [History Last Taken 10/12/23] gabapentin 300 mg capsule 300 mg PO QHS 10/11/23 [History Last Taken 10/11/23] Allergy/AdvReac Type Severity Reaction Status Date / Time No Known Allergies Allergy Unverified 09/26/23 08:43 Social History Smoking Status: Current every day smoker tobacco type: cigarettes second hand exposure: Yes ROS ROS ED Review of Systems ROS Unobtainable: due to mental status EXAM Physical Exam Const Vital Signs: 10/12/23 09:57 10/12/23 09:59 10/12/23 10:08 Temperature 0 F L Temperature Source Temporal Pulse Rate 64 79 Respiratory Rate 18 16 Respiratory Effort Short of Breath Blood Pressure 120/84 H Blood Pressure Mean 96 Pulse Ox 99 98 Oxygen Delivery Method Non-Rebreather Non-Rebreather Nasal Cannula Oxygen Flow Rate (L/min) 2 10/12/23 10:09 10/12/23 10:14 Temperature Temperature Source Pulse Rate 76 Respiratory Rate 16 Respiratory Effort Blood Pressure 146/88 H Blood Pressure Mean 107 Pulse Ox 97 Oxygen Delivery Method Room Air Nasal Cannula Oxygen Flow Rate (L/min) 2 2 Positive well nourished and well developed General Appearance ED: well developed and NAD HEENT Reports moist mucous membranes Eyes PERRL Neck supple Neck Narrative: no meningismus Chest Wall inspection of chest normal and palpation of chest normal Resp normal respiratory effort Resp Narrative: Decreased breath sounds right side apex otherwise clear Cardio regular rate, regular rhythm and no murmurs GI non-tender and non-distended Auscultation: normoactive bowel sounds Extremity normal to inspection Neuro Neuro Narrative: Obtunded, breathing. Neris Coma Scale: document GCS findings None Withdraws to Pain Incomprehensible 7 Skin no rashes or lesions noted and no wounds MDM MDM MDM Narrative Medical decision making narrative: Initial chest x-ray performed right after the procedure was completed showed persistent pneumothorax. We were able to suction air out of the port of the pleura seal, and placement looks good. Therefore keeping in the differential a persistent air leak, I attached the thoracostomy to a pleura seal, and attached it to wall suction set at -20 cm of water pressure. After initial air was evacuated from the system, there is not a large persistent leak. Repeat 1 view chest x-ray 15 or 20 minutes later on my interpretation shows complete resolution of the pneumothorax with good placement of the tube. On reexamination patient is more alert, and able to talk, converse, GCS 15, since he was breathing 16-18 times per minute, we chose not to reverse the midazolam and wait for it to wear off which occurred without complication. He currently is on minimal oxygen via nasal cannula. Discussed with pulmonary who is in agreement with watching the patient for the day and night in the hospital. History & Record Review Discussion w/independent historian: Family (explained to family who later arrived at bedside) and Other (IR personnel) Additional record(s) reviewed:: Other (prior CXRs) Lab Data Attestation: I reviewed the patient's lab results. Labs: Laboratory Results - last 24 hr 10/12/23 10:15 WBC 8.1 RBC 5.13 Hgb 15.5 Hct 48.4 MCV 94.3 H MCH 30.2 MCHC 32.0 RDW Std Deviation 45.5 H RDW Coeff of Juliane 13.1 Plt Count 263 MPV 8.6 Immature Gran % (Auto) 1.500 H Neut % (Auto) 62.0 Lymph % (Auto) 26.8 Norman % (Auto) 6.9 Eos % (Auto) 1.7 Baso % (Auto) 1.1 H Absolute Neuts (auto) 5.0 Absolute Lymphs (auto) 2.18 Nucleated RBC % 0 Sodium 142 Potassium 4.7 Chloride 109 H Carbon Dioxide 28.0 Anion Gap 5 BUN 19 H Creatinine 1.06 Estim Creat Clear Calc 0.00 Est GFR (MDRD) Af Amer 89 Est GFR (MDRD) Non-Af 74 BUN/Creatinine Ratio 17.9 Glucose 113 H Calcium 8.8 Rhythm Strip Rhythm Strip: Sinus Rhythm Rate: 55 Ectopy: None EKG Initial EKG: Attestation: I personally reviewed and interpreted this EKG as follows: Interpretation: Sinus Rhythm and No Acute Injury Pattern Comments: normal EKG Management Discussion w/another healthcare provider: Hospitalist and Automatic Vulcanizing Operator (Fred - Pulmonary) Procedures Other Procedures Procedure(s): Directly supervised nurse practitioner placing Pleurasil thoracostomy device in the right anterior chest wall via modified seldinger technique. Tolerated well by patient under sterile conditions, no complications. Discharge Plan Triage Chief Complaint: Shortness of Breath ED Provider: Justin Jim Dx/Rx/DC Orders Clinical Impression: Iatrogenic pneumothorax, Nicotine dependence, cigarettes, uncomplicated, Lung nodule Prescriptions: No Action pantoprazole 40 mg tablet,delayed release (DR/EC) 40 mg PO DAILY Patient Comments: ONE TABLET TABLET BY MOUTH DAILY atorvastatin 40 mg tablet 40 mg PO DAILY Patient Comments: TAKE 1 TABLET BY MOUTH EVERY DAY aspirin 81 mg tablet,delayed release (DR/EC) 81 mg PO DAILY gabapentin 300 mg capsule 300 mg PO QHS Primary Care Provider: Scott Mejia Referrals: Scott Mejia MD [Primary Care Provider] - What to do if you have Problems For any increased pain, shortness of breath, bleeding, nausea or vomiting, chestpain, or any unexpected problems, contact your Primary Care Provider. Call [facility] ([phone]) or report to the closest Emergency Room. Call 911 if necessary. 10/12/23 1507 <Electronically signed by Justin Jim MD> Cosigner Signature (if applicable): CC: Dr. Scott Mejia MD ~ Signed [facility] Work Phone: 1(409) 384-915001-19-2024 History and physical note Author Annmarie Al [facility] October 12, 2023 11:43am Note Date/Time October 12, 2023 1 1:23am [facility] Medical Records Department [address] [place] [address] H&P Exam - Hospitalist 10/12/23 1120 MR#: [id number] Acct: [id number] Name: SRATHAK PUTNAM Jr. Rep #:[id number] : 1955 68 From: Annmarie Al MD PCP: Dr. Scott Mejia MD Status:ADM I NO Location: [facility] [id number]- [id number] HPI - General General Date of Admission: 10/12/23 Date of Service: 10/12/23 Chief Complaint: Pneumothorax HPI Narrative SARTHAK PUTNAM, is a 68 M with history of right lung mass, GERD, COPD, tobacco use who presented to [facility] 10/12/2023 due to pneumothorax which occurred during a lung biopsy. This was immediately recognized by proceduralist and patient was brought to the ED and had an anterior thoracostomytube placed. Patient was initially not very responsive but he been given 2 of Versed and 50 of fentanyl for the initial procedure and woke up from this without significant difficulty. Chest x-ray after thoracostomy was attached to pleural seal and air evacuated from system showed complete resolution of pneumothorax with good placement. Currently on minimal O2 via nasal cannula. ED physician spoke with process designer on-call who is in agreement to see patient inconsult after admission. Hospitalist consulted for admission. Patient evaluated at bedside with family present, reports his breathing is much better, has had some stabbing pain in his chest around the area of the pneumothorax and the chest tube and initially had had some blood in his sputum but is not coughing at this time during exam, only other complaint is that he is cold. Prior to coming in for biopsy patient reports he has not been having any medicalcomplaints or problems. [facility] Home Medications aspirin 81 mg tablet,delayed release 81 mg PO DAILY 09/26/23 [History Last Taken 10/11/23] atorvastatin 40 mg tablet 40 mg PO DAILY 09/26/23 [History Last Taken 10/11/23] pantoprazole 40 mg tablet,delayed release 40 mg PO DAILY 09/26/23 [History Last Taken 10/12/23] gabapentin 300 mg capsule 300 mg PO QHS 10/11/23 [History Last Taken 10/11/23] Allergy/AdvReac Type Severity Reaction Status Date / Time No Known Allergies Allergy Unverified 09/26/23 08:43 Social History Smoking Status: Current every day smoker tobacco type: cigarettes second hand exposure: Yes ROS ROS Narrative General: feels very cold right now HENT: Denies headache, denies stuffy nose, denies sore throat EYES: Denies changes in vision Resp: did initially have some blood in his sputum, shortness of breath improving Cardiac: Has some sharp pain around the area of the chest tube GI: Denies abdominal pain, denies changes in bowel, denies nausea/vomiting : Denies changes in urination Extremity: Denies swelling MSK: Denies weakness Neuro: Denies any numbness/tingling Heme: Denies any bleeding or bruising Skin: Denies rashes Psychiatric: No complaints voiced Vital Signs Vital Signs Vital Signs: 10/12/23 09:57 10/12/23 09:59 10/12/23 10:08 Temperature 0 F L Temperature Source Temporal Pulse Rate 64 79 Respiratory Rate 18 16 Respiratory Effort Short of Breath Blood Pressure 120/84 H Blood Pressure Mean 96 Pulse Ox 99 98 Oxygen Delivery Method Non-Rebreather Non-Rebreather Nasal Cannula Oxygen Flow Rate (L/min) 2 10/12/23 10:09 10/12/23 10:14 10/12/23 10:51 Temperature Temperature Source Pulse Rate 76 72 Respiratory Rate 16 19 H Respiratory Effort Blood Pressure 146/88 H 152/109 H Blood Pressure Mean 107 123 Pulse Ox 97 96 Oxygen Delivery Method Room Air Nasal Cannula Nasal Cannula Oxygen Flow Rate (L/min) 2 2 10/12/23 11:06 Temperature Temperature Source Pulse Rate 83 Respiratory Rate 16 Respiratory Effort Blood Pressure 153/97 H Blood Pressure Mean 115 Pulse Ox 95 Oxygen Delivery Method Nasal Cannula Oxygen Flow Rate (L/min) 2 Weight Weight: 0 g Body Mass Index (BMI) 0.0 Physical Exam Narrative General: Alert, oriented, no apparent distress HEENT: Atraumatic, normocephalic Eyes: Anicteric, normal conjunctiva, extraocular movements grossly intact Neck: Supple Respiratory: Right sided wheezes, breath sounds bilaterally Cardiovascular: Regular rate and rhythm GI: Soft, nontender, nondistended Extremities: No edema Musculoskeletal: Moving all extremities Neuro: No overt focal neurological deficits Skin: No rashes appreciated Psych: Cooperative Results Lab / Micro Data 10/12/23 10:15 10/12/23 10:15 Labs: Laboratory Results - last 24 hr 10/12/23 10:15: WBC 8.1, RBC 5.13, Hgb 15.5, Hct 48.4, MCV 94.3 H, MCH 30.2, MCHC 32.0, RDW Std Deviation 45.5 H, RDW Coeff of Juliane 13.1, Plt Count 263, MPV 8.6, Immature Gran % (Auto) 1.500 H, Neut % (Auto) 62.0, Lymph % (Auto) 26.8, Norman % (Auto) 6.9, Eos % (Auto) 1.7, Baso % (Auto) 1.1 H, Absolute Neuts (auto) 5.0, Absolute Lymphs (auto) 2.18, Nucleated RBC % 0, Sodium 142, Potassium 4.7, Chloride 109 H, Carbon Dioxide 28.0, Anion Gap 5, BUN 19 H, Creatinine 1.06, Estim Creat Clear Calc 0.00, Est GFR (MDRD) Af Amer 89, Est GFR (MDRD) Non-Af 74, BUN/Creatinine Ratio 17.9, Glucose 113 H, Calcium 8.8 Rhythm Strip Rhythm Strip: Sinus Rhythm Rate: 55 Ectopy: None Imagaing Radiology Impression Chest X-Ray 10/12/23 10:25 IMPRESSION: Markedly improved to almost resolved right apical pneumothorax. Electronically Signed: Boogie Gallardo MD at 10:48 EST , Assessment & Plan Assessment/Plan (1) Iatrogenic pneumothorax: (2) Lung nodule: (3) Nicotine dependence, cigarettes, uncomplicated: (4) COPD (chronic obstructive pulmonary disease): (5) GERD (gastroesophageal reflux disease): PLAN: Plan #Iatrogenic pneumothorax on right s/p chest tube -During lung biopsy, immediately identified and brought to ED w/ chest tube placed -Pulm c/s -CXR w/ resolution of pneumothorax with tube placement and air removeal -Pain control -I/s #Lung mass -Follows w/ pulm on outpt basis #GERD -Continue PPI #Tobacco use -Advise cessation -Patient refuses nicotine replacement #DVT ppx: SCDs Annmarie Al MD Time spent in the patient's overall evaluation,decision-making process, review of diagnostic data, adjustment of management, discussion with other providers, nursing nursing and ancillary staff involved in patient's care documentation, 45minutes Charges/Coding Visit Charges Inpatient E&M: 78376 Init Hosp L1 10/12/23 1143 <Electronically signed by Annmarie Al MD> Cosigner Signature (if applicable): CC: Dr. Annmarie Al MD; Dr. Scott Mejia MD~ Signed [facility] Work Phone: 1(416) 814-621701-19-2024 Procedure [facility] 10-12-2023 Procedure [facility]01-19-2024 Procedure note [facility]01-19-2024 Procedure [facility] 08-23-2023 Procedure [facility]11-07-2023 Miscellaneous Notes* Telephone Encounter - Kenia Willis 07/31/2023 4:14 PM EST Received a referral request for the patient from the Neurology nurse. The patient's demographic information needs to be updated. Copied the face sheet and asked one of the PSS to update the information. When information is updated, we will call the patient to schedule an appointment. [facility] Author Paula Steel [facility] October 17, 2023 12:41pm Note Date/Time October 17, 2023 1 2:41pm [facility] Medical Records Department [address] [place] [address] Counseling Note - Pharmacy 10/17/23 1241 MR#: [id number] Acct: [id number] Name: SARTHAK PUTNAM JrCarlos Rep #:[id number] : 1955 68 From: Paula Steel PCP: Dr. Scott Mejia MD Status:ADM I N Y [facility] has performed discharge medication reconciliation and counseling for this patient. 1. Clopidogrel 75mg po daily x 21 days The patient's discharge medication list was reviewed for discrepancies and discrepancies were resolved. The patient was counseled on the following discharge medications and changes in medications for homegoing were reviewed. The Reason for Use, instructions for use, and potential side effects were reviewed for all new medications. The patient's questions regarding all of their medications were answered. The patient was able to verbally demonstrate an understanding of their dischargemedications. Medications at Discharge Home Medications aspirin 81 mg tablet,delayed release 81 mg PO DAILY 09/26/23 atorvastatin 40 mg tablet 40 mg PO DAILY 09/26/23 pantoprazole 40 mg tablet,delayed release 40 mg PO DAILY 09/26/23 gabapentin 300 mg capsule 300 mg PO QHS 10/11/23 clopidogrel 75 mg tablet 75 mg PO DAILY #21 tabs 10/17/23 10/17/23 1241 <Electronically signed by Paula Steel> Date _ Paula Pryorigner Signature (if applicable): Date CC: ~ Signed [facility] Work Phone: Discharge summary Author Marjan Pizarro [facility] October 17, 2023 11:46am Note Date/Time October 17, 2023 1 1:45am [facility] Medical Records Department [address] [place] [address] Instructions for Home/Discharge Instructions 10/17/23 1145 MR#: [id number] Acct: [id number] Name: SARTHAK PUTNAM JrCarlos Rep #:[id number] : 1955 68 From: Marjan Pizarro MD PCP: Dr. Scott Mejia MD Status:ADM I N Discharge Instructions Diet Discharge Diet: Low fat / Low cholesterol Activity Discharge Activity: Return to Normal Activity Weight Bearing Status: Weight bearing as tolerated Dressing / Incision Call your doctor if you observe: Fever of 101 or Higher, Shortness of breath, Dizziness, Swelling in the ankles, Chest pain and Increased palpitations (irregular heartbeat) Follow Up Care Test Results: Test results from this visit will be discussed in further detail at your follow- up appointment, if applicable. Discharge Plan Admission Admit Date/Time: 10/13/23 10:53 Primary Reason for Your Visit: CVA, pneumothorax Attending Provider: Marjan Pizarro Primary Care Provider: Scott Mejia Consulting Providers: Raf Murillo; Aida Chaparro; Debbie Morrell; Leyda Ramos; Mary Mcclure; Hermelindo Combs; Fabi Koo; Theo Wu; Ruben Cat; Lindsay Montana; Nick Noyola; Lupe Meza; Naveen High; Mariah Ayala; Geovany Rubin; Yaquelin Hurtado; Abhijeet Jessica; Marilou Gallego; Tesfaye Nunez;Annmarie Al Discharge Orders/Prescriptions Prescriptions: New clopidogrel 75 mg Tablet 75 mg PO DAILY Qty: 21 0RF Continued pantoprazole 40 mg tablet,delayed release (DR/EC) 40 mg PO DAILY Patient Comments: ONE TABLET TABLET BY MOUTH DAILY atorvastatin 40 mg tablet 40 mg PO DAILY Patient Comments: TAKE 1 TABLET BY MOUTH EVERY DAY aspirin 81 mg tablet,delayed release (DR/EC) 81 mg PO DAILY gabapentin 300 mg capsule 300 mg PO QHS Other Ambulatory Orders: 30 Day Event Recorder Preventi (Urgent) Timeframe: 1 Day Facility: [facility] - Location: Cardiovascular Services Ordered By: Dr. Marjan Pizarro Referrals / Follow Up: Scott Mejia MD [Primary Care Provider] - Within 1 Week Bharathi Tanner MD [Non-Staff -Ordering Privileges] - Within 2 Weeks Disposition Disposition (needs filled in before D/C Order can be placed): Home, Self Care 10/17/23 1146<Electronically signed by Marjan Pizarro MD>Marjan Pizarro MD CC: Leyda Ramos; Aida Chaparro; Lupe Meza; Geovany Tellez; Mary Mcclure MD;Debbie Morrell MD; Raf Murillo MD; Dr. Hermelindo Combs MD; Dr. Fabi Koo MD; Dr. Ruben Cat MD; Dr. Theo Wu MD; Dr. Nick Noyola DO; Dr. Mariah Ayala MD; Dr. Naveen High MD; Dr. Annmarie Al MD; Dr. Scott Mejia MD; Dr. Yaquelin Hurtado MD; Dr. Abhijeet Jessica MD; Dr. Marilou Gallego MD; Lindsay Montana DO; Tesfaye Nunez MD ~ Signed [facility] Work Phone: Evaluation + Plan note Future Appointments Appointment Date:09/09/2024 11:00:00 AM Scheduled Provider:MANDO FISCHER DO Location:[facility] Appointment Type:OSM OV Post Op Diagnostic Tests Pending * Nicotine and Metabolite, Quant 08/04/24 Future Scheduled Tests Radiology* MRI Spine Cervical w/o Contrast 10/15/23 [facility] Evaluation + Plan note Future Appointments Appointment Date:10/21/2024 10:40:00 AM Scheduled Provider:MANDO FISCHER DO Location:[facility] Appointment Type:OSM OV Review Testing Future Scheduled Tests Radiology* MRI Spine Cervical w/o Contrast 09/22/24 [facility] Evaluation + Plan note Future Appointments Appointment Date:02/03/2025 08:00:00 AM Scheduled Provider:MANDO FISCHER DO Location:[facility] Appointment Type:OSM OV Post Op Future Scheduled Tests Radiology* MRI Spine Cervical w/o Contrast 09/22/24 [facility] Evaluation + Plan note Future Appointments Appointment Date:02/03/2025 09:00:00 AM Scheduled Provider:MANDO FISCHER DO Location:[facility] Appointment Type:OSM OV Post Op Future Scheduled Tests Radiology* MRI Spine Cervical w/o Contrast 09/22/24 [facility] evaluation noteNo assessment information available [facility] Work Phone: evaluation note* Diagnosis Onset Date Resolution Status Lung nodule acute Nicotine dependence, cigarettes, uncomplicated chronic [facility] Work Phone: evaluation note* Diagnosis Onset Date Resolution Status Lung nodule acute Nicotine dependence, cigarettes, uncomplicated chronic GERD (gastroesophageal reflux disease) acute Iatrogenic pneumothorax acut e Lung nodule acute COPD (chronic obstructive pulmonary disease) chronic Nicotine dependence, cigarettes, uncomplicated chronic [facility] Work Phone: Evaluation note* Diagnosis Onset Date Resolution Status Lung nodule chronic Nicotine dependence, cigarettes, uncomplicated chronic COPD (chronic obstructive pulmonary disease) chronic Lung nodule chronic Nicotine dependence, cigarettes, uncomplicated chronic Iatrogenic pneumothorax reso lved CVA (cerebral vascular accident) acute COPD (chronic obstructive pulmonary disease) chronic Lung nodule chronic Nicotine dependence, cigarettes, uncomplicated chronic [facility] Work Phone: evaluation note* Diagnosis Cervical stenosis of spine- Primary Spinal stenosis in cervical region Spinal stenosis of lumbar region without neurogenic claudication Spinal stenosis, lumbar region, without neurogenic claudication [facility] Diagnosis Onset Date Resolution Status COPD (chronic obstructive pulmonary disease) chronic Lung nodule chronic Nicotine dependence, cigarettes, uncomplicated chronic Iatrogenic pneumothorax reso lved CVA (cerebral vascular accident) acute COPD (chronic obstructive pulmonary disease) chronic Lung nodule chronic Nicotine dependence, cigarettes, uncomplicated chronic [facility] Work Phone: Evaluation note* Diagnosis Stroke-like symptoms Other symptoms involving nervous and musculoskeletal systems Left-sided weakness Muscle weakness (generalized) Weakness of both lower extremities Recurrent falls Personal history of fall [facility] Diagnosis Spinal stenosis of lumbar region without neurogenic claudication Spinal stenosis, lumbar region, without neurogenic claudication Weakness of both lower extremities Recurrent falls Personal history of fall [facility] Diagnosis Spinal stenosis of cervical region Spinal stenosis in cervical region Left-sided weakness Muscle weakness (generalized) [facility] Author Annmarie Al [facility] October 12, 2023 11:43am Note Date/Time October 12, 2023 1 1:23am [facility] Medical Records Department [address] [place] [id number] H&P Exam - Hospitalist 10/12/23 1120 MR#: [id number] Acct: [id number] Name: SARTHAK PUTNAM JrCarlos Rep #:[id number] : 1955 68 From: Annmarie Al MD PCP: Dr. Scott Mejia MD Status:ADM I NO Location: [place] [address] HPI - General General Date of Admission: 10/12/23 Date of Service: 10/12/23 Chief Complaint: Pneumothorax HPI Narrative SARTHAK PUTNAM, is a 68 M with history of right lung mass, GERD, COPD, tobacco use who presented to [facility] 10/12/2023 due to pneumothorax which occurred during a lung biopsy. This was immediately recognized by proceduralist and patient was brought to the ED and had an anterior thoracostomytube placed. Patient was initially not very responsive but he been given 2 of Versed and 50 of fentanyl for the initial procedure and woke up from this without significant difficulty. Chest x-ray after thoracostomy was attached to pleural seal and air evacuated from system showed complete resolution of pneumothorax with good placement. Currently on minimal O2 via nasal cannula. ED physician spoke with process designer on-call who is in agreement to see patient inconsult after admission. Hospitalist consulted for admission. Patient evaluated at bedside with family present, reports his breathing is much better, has had some stabbing pain in his chest around the area of the pneumothorax and the chest tube and initially had had some blood in his sputum but is not coughing at this time during exam, only other complaint is that he is cold. Prior to coming in for biopsy patient reports he has not been having any medicalcomplaints or problems. [facility] Home Medications aspirin 81 mg tablet,delayed release 81 mg PO DAILY 09/26/23 [History Last Taken 10/11/23] atorvastatin 40 mg tablet 40 mg PO DAILY 09/26/23 [History Last Taken 10/11/23] pantoprazole 40 mg tablet,delayed release 40 mg PO DAILY 09/26/23 [History Last Taken 10/12/23] gabapentin 300 mg capsule 300 mg PO QHS 10/11/23 [History Last Taken 10/11/23] Allergy/AdvReac Type Severity Reaction Status Date / Time No Known Allergies Allergy Unverified 09/26/23 08:43 Social History Smoking Status: Current every day smoker tobacco type: cigarettes second hand exposure: Yes ROS ROS Narrative General: feels very cold right now HENT: Denies headache, denies stuffy nose, denies sore throat EYES: Denies changes in vision Resp: did initially have some blood in his sputum, shortness of breath improving Cardiac: Has some sharp pain around the area of the chest tube GI: Denies abdominal pain, denies changes in bowel, denies nausea/vomiting : Denies changes in urination Extremity: Denies swelling MSK: Denies weakness Neuro: Denies any numbness/tingling Heme: Denies any bleeding or bruising Skin: Denies rashes Psychiatric: No complaints voiced Vital Signs Vital Signs Vital Signs: 10/12/23 09:57 10/12/23 09:59 10/12/23 10:08 Temperature 0 F L Temperature Source Temporal Pulse Rate 64 79 Respiratory Rate 18 16 Respiratory Effort Short of Breath Blood Pressure 120/84 H Blood Pressure Mean 96 Pulse Ox 99 98 Oxygen Delivery Method Non-Rebreather Non-Rebreather Nasal Cannula Oxygen Flow Rate (L/min) 2 10/12/23 10:09 10/12/23 10:14 10/12/23 10:51 Temperature Temperature Source Pulse Rate 76 72 Respiratory Rate 16 19 H Respiratory Effort Blood Pressure 146/88 H 152/109 H Blood Pressure Mean 107 123 Pulse Ox 97 96 Oxygen Delivery Method Room Air Nasal Cannula Nasal Cannula Oxygen Flow Rate (L/min) 2 2 10/12/23 11:06 Temperature Temperature Source Pulse Rate 83 Respiratory Rate 16 Respiratory Effort Blood Pressure 153/97 H Blood Pressure Mean 115 Pulse Ox 95 Oxygen Delivery Method Nasal Cannula Oxygen Flow Rate (L/min) 2 Weight Weight: 0 g Body Mass Index (BMI) 0.0 Physical Exam Narrative General: Alert, oriented, no apparent distress HEENT: Atraumatic, normocephalic Eyes: Anicteric, normal conjunctiva, extraocular movements grossly intact Neck: Supple Respiratory: Right sided wheezes, breath sounds bilaterally Cardiovascular: Regular rate and rhythm GI: Soft, nontender, nondistended Extremities: No edema Musculoskeletal: Moving all extremities Neuro: No overt focal neurological deficits Skin: No rashes appreciated Psych: Cooperative Results Lab / Micro Data 10/12/23 10:15 10/12/23 10:15 Labs: Laboratory Results - last 24 hr 10/12/23 10:15: WBC 8.1, RBC 5.13, Hgb 15.5, Hct 48.4, MCV 94.3 H, MCH 30.2, MCHC 32.0, RDW Std Deviation 45.5 H, RDW Coeff of Juliane 13.1, Plt Count 263, MPV 8.6, Immature Gran % (Auto) 1.500 H, Neut % (Auto) 62.0, Lymph % (Auto) 26.8, Norman % (Auto) 6.9, Eos % (Auto) 1.7, Baso % (Auto) 1.1 H, Absolute Neuts (auto) 5.0, Absolute Lymphs (auto) 2.18, Nucleated RBC % 0, Sodium 142, Potassium 4.7, Chloride 109 H, Carbon Dioxide 28.0, Anion Gap 5, BUN 19 H, Creatinine 1.06, Estim Creat Clear Calc 0.00, Est GFR (MDRD) Af Amer 89, Est GFR (MDRD) Non-Af 74, BUN/Creatinine Ratio 17.9, Glucose 113 H, Calcium 8.8 Rhythm Strip Rhythm Strip: Sinus Rhythm Rate: 55 Ectopy: None Imagaing Radiology Impression Chest X-Ray 10/12/23 10:25 IMPRESSION: Markedly improved to almost resolved right apical pneumothorax. Electronically Signed: Boogie Gallardo MD at 10:48 EST , Assessment & Plan Assessment/Plan (1) Iatrogenic pneumothorax: (2) Lung nodule: (3) Nicotine dependence, cigarettes, uncomplicated: (4) COPD (chronic obstructive pulmonary disease): (5) GERD (gastroesophageal reflux disease): PLAN: Plan #Iatrogenic pneumothorax on right s/p chest tube -During lung biopsy, immediately identified and brought to ED w/ chest tube placed -Pulm c/s -CXR w/ resolution of pneumothorax with tube placement and air removeal -Pain control -I/s #Lung mass -Follows w/ pulm on outpt basis #GERD -Continue PPI #Tobacco use -Advise cessation -Patient refuses nicotine replacement #DVT ppx: SCDs Annmarie Al MD Time spent in the patient's overall evaluation,decision-making process, review of diagnostic data, adjustment of management, discussion with other providers, nursing nursing and ancillary staff involved in patient's care documentation, 45minutes Charges/Coding Visit Charges Inpatient E&M: 37951 Init Hosp L1 10/12/23 1143 <Electronically signed by Annmarie Al MD> Cosigner Signature (if applicable): CC: Dr. Annmarie Al MD; Dr. Scott Mejia MD~ Signed [facility] Work Phone: Hospital course Narrative No data available for this section [facility] Discharge instructions No data available for this section [facility] Procedure note* Ian Mead: PERFORM Event Display: Procedure Note Authored Date: [id number] [facility] Procedure note* Fernanda Sandoval: PERFORM Event Display: Procedure Note Authored Date: [id number] [facility] Progress note No data available for this section [facility] Reason for referral (narrative)No reason for referral [facility] Work Phone: Chief Complaint and Reason for Visit Chief Complaint LOWER EXTREMITIY NUM BNESS/TOBACCO USE BALANCE RX HERE Other abnormalities of gait and mobilityADD LAB Chief Complaint LOWER EXTREMITIY NUM BNESS/TOBACCO USE Other abnormalities of gait and mobilityADD LAB Anesthesia of skin Anesthesia of skin BALANCE RX HERE Chief Complaint LOWER EXTREMITIY NUM BNESS/TOBACCO USE Other abnormalities of gait and mobilityADD LAB Anesthesia of skin Anesthesia of skin BALANCE RX HERE Personal history of transient ischemic attack (TIA PULM NODULE Chief Complaint LOWER EXTREMITIY NUM BNESS/TOBACCO USE Other abnormalities of gait and mobilityADD LAB Anesthesia of skin Anesthesia of skin BALANCE RX HERE Personal history of transient ischemic attack (TIA PULM NODULE Lung Nodule Reason for Visit Lung nodule Nicotine dependence, cigarettes, uncomplicated Chief Complaint LOWER EXTREMITIY NUM BNESS/TOBACCO USE Other abnormalities of gait and mobilityADD LAB Anesthesia of skin Anesthesia of skin BALANCE RX HERE Personal history of transient ischemic attack (TIA PULM NODULE Lung Nodule LUNG NODULE PTX PTX Reason for Visit Lung nodule Nicotine dependence, cigarettes, uncomplicated GERD (gastroesophageal reflux disease) Iatrogenic pneumothorax Lung nodule COPD (chronic obstructive pulmonary disease) Nicotine dependence, cigarettes, uncomplicated Chief Complaint LOWER EXTREMITIY NUM BNESS/TOBACCO USE Other abnormalities of gait and mobilityADD LAB Anesthesia of skin Anesthesia of skin BALANCE RX HERE Personal history of transient ischemic attack (TIA PULM NODULE Lung Nodule LUNG NODULE PTX PTX PNEUMOTHORAX PNEUMOTHORAX PNEUMOTHORAX PNEUMOTHORAX PNEUMOTHORAX Reason for Visit Lung nodule Nicotine dependence, cigarettes, uncomplicated GERD (gastroesophageal reflux disease) Iatrogenic pneumothorax Lung nodule COPD (chronic obstructive pulmonary disease) Nicotine dependence, cigarettes, uncomplicated Chief Complaint LOWER EXTREMITIY NUM BNESS/TOBACCO USE Other abnormalities of gait and mobilityADD LAB Anesthesia of skin Anesthesia of skin BALANCE RX HERE Personal history of transient ischemic attack (TIA PULM NODULE Lung Nodule LUNG NODULE PTX PTX PNEUMOTHORAX PNEUMOTHORAX PNEUMOTHORAX PNEUMOTHORAX PNEUMOTHORAX PNEUMOTHORAX 4 wk fu CRYPTOGENIC STROKE TO EVALUATE ARRHYTHMIAS Reason for Visit Lung nodule Nicotine dependence, cigarettes, uncomplicated COPD (chronic obstructive pulmonary disease) Lung nodule Nicotine dependence, cigarettes, uncomplicated Iatrogenic pneumothorax CVA (cerebral vascular accident) COPD (chronic obstructive pulmonary disease) Lung nodule Nicotine dependence, cigarettes, uncomplicated Chief Complaint Personal history of transient ischemic attack (TIA PULM NODULE Lung Nodule LUNG NODULE PTX PTX PNEUMOTHORAX PNEUMOTHORAX PNEUMOTHORAX PNEUMOTHORAX PNEUMOTHORAX PNEUMOTHORAX 4 wk fu CRYPTOGENIC STROKE TO EVALUATE ARRHYTHMIAS 30 DAY MONITOR R91.1 Solitary pulmonary nodule Reason for Visit Lung nodule Nicotine dependence, cigarettes, uncomplicated COPD (chronic obstructive pulmonary disease) Lung nodule Nicotine dependence, cigarettes, uncomplicated Iatrogenic pneumothorax CVA (cerebral vascular accident) COPD (chronic obstructive pulmonary disease) Lung nodule Nicotine dependence, cigarettes, uncomplicated Chief Complaint LUNG NODULE PTX PTX PNEUMOTHORAX PNEUMOTHORAX PNEUMOTHORAX PNEUMOTHORAX PNEUMOTHORAX PNEUMOTHORAX 4 wk fu CRYPTOGENIC STROKE TO EVALUATE ARRHYTHMIAS 30 DAY MONITOR R91.1 Solitary pulmonary nodule STEMI Reason for Visit COPD (chronic obstru ctive pulmonary disease) Lung nodule Nicotine dependence, cigarettes, uncomplicated Iatrogenic pneumothorax CVA (cerebral vascular accident) COPD (chronic obstructive pulmonary disease) Lung nodule Nicotine dependence, cigarettes, uncomplicated Chief Complaint Admit Date DYSPHAGIA December 11, 2024 9:0 7am Chief Complaint Admit Date DYSPHAGIA December 11, 2024 9:0 7am [place] AFIB/Surgical Clearance December 25, 2024 9:06am CHEST PAIN , Atrial fibrillation December 302024 6:05am CHEST PAIN , Atrial fibrillation December 302024 5:06pm Reason for Visit Admit Date Atrial fibrillation December 25, 2024 9:06 am Coronary artery disease December 25, 2024 9:06am Dyslipidemia December 25, 2024 9:06 am Chief Complaint Admit Date DYSPHAGIA December 11, 2024 9:0 7am [place] AFIB/Surgical Clearance December 25, 2024 9:06am CHEST PAIN , Atrial fibrillation December 302024 6:05am CHEST PAIN , Atrial fibrillation December 302024 5:06pm Toney RUIZ TO READ January 07, 2025 6 :18am 30 DAY MONITOR January 07, 2025 10: 00am Weakness January 19, 2025 11: 32am 1 M FU January 26, 2025 12:49p m 4 M FU March 24, 2025 2:08p m Reason for Visit Admit Date Atrial fibrillation December 25, 2024 9:06 am Coronary artery disease December 25, 2024 9:06am Dyslipidemia December 25, 2024 9:06 am Atrial fibrillation January 26, 2025 12:49p m Coronary artery disease January 26, 2025 12 :49pm Dyslipidemia January 26, 2025 12:49p m COPD (chronic obstructive pulmonary dise ase) March 24, 2025 2:08pm Hypoxia March 24, 2025 2:08p m Lung nodule March 24, 2025 2:08p m Advance Directives No Advanced Directives Records Found Advance Directive Response Recorded Date/ Time Living Will No October 12 12:35pm Power of Remediation Technician No October 12, 2023 12:35pm Advance Directive Response Recorded Date/ Time Living Will No October 12 1:35pm Power of Remediation Technician No October 12, 2023 1:35pm Advance Directive Response Recorded Date/ Time Living Will No February 04, 2024 1 0:14pm Power of Remediation Technician No February 04, 2024 10:14pm Advance Directive Response Recorded Date/ Time Do you have a Healthcare Power of Remediation Technician? No January 19, 2025 12:29pm Summary Purpose Family History No Family History Records FoundNo Family History Records FoundNo Family History Records Found No data available for this section No data available for this section No data available for this section No data available for this section No data available for this section No data available for this section No Family History Records Found No data available for this section No Family History Records FoundNo Family History Records Found Reason for Referral Specialty Diagnoses / Procedures Referred By Contac t Referred To Contact Neurosurgery Diagnoses Cervical stenosis of spine Procedures CONSULT TO NEUROSURGERY OFFICE/OUTPATIENT [facility] 60 MINUTES Bonita Medrano PA-C [address] [place] [address] Referral ID Status Reason Start Date Expiration Date Visits Requested Visits Authorized [id number] Authorized PCP Requested Referral 11/20/2023 11/19/2024 1 1 Specialty Diagnoses / Procedures Referred By Contac t Referred To Contact MR IMAGING Diagnoses Stroke-like symptoms Left-sided weakness Weakness of both lower extremities Recurrent falls Procedures MRI BRAIN WO IVCON MRI BRAIN BRAIN STEM W/O CONTRAST MATERIAL Jl Anaya Jr., MD [address] [facility] [address] [place] [address] [place] [address] Referral ID Status Reason Start Date Expiration Date V isits Requested Visits Authorized [id number] Closed Auto-Generate d Referral 10/24/2023 11/22/2024 1 1 Specialty Diagnoses / Procedures Referred By Contac t Referred To Contact MR IMAGING Diagnoses Spinal stenosis of lumbar region without neurogenic claudication Weakness of both lower extremities Recurrent falls Procedures MRI LUMBAR SPINE WO IVCON MRI SPINAL CANAL LUMBAR W/O CONTRAST MATERIAL Jl Anaya Jr., MD [address] [place] [address] [place] [address] Referral ID Status Reason Start Date Expiration Date V isits Requested Visits Authorized [id number] Closed Auto-Generate d Referral 10/24/2023 11/22/2024 1 1 Specialty Diagnoses / Procedures Referred By Contac t Referred To Contact MR IMAGING Diagnoses Spinal stenosis of cervical region Left-sided weakness Procedures MRI CERVICAL SPINE WO IVCON MRI SPINAL CANAL CERVICAL W/O CONTRAST MATRL Jl Anaya Jr., MD [address] [facility] [address] [place] [address] [place] [address] Referral ID Status Reason Start Date Expiration Date V isits Requested Visits Authorized [id number] Closed Auto-Generate d Referral 10/24/2023 11/22/2024 1 1 Additional Source Comments Care Teams (unrecognized sec tion and content) Team Status: Active Member Role Status Dates Dr. Neftaly Swnason MD Family Provider Active Haley Moreau DO Primary Care Provider Active Team Status: Inactive Member Role Status Dates Haley Moreau DO Primary Care Provider, Attending Provider Active Team Status: Active Member Role Status Dates Dr. Neftaly Swanson MD Family Provider Active Dr. Scott Mejia MD Primary Care Provider Active Team Status: Inactive Member Role Status Dates Dr. Scott Mejia MD Primary Care Provider, Attending Provider Active Team Status: Inactive Member Role Status Dates Dr. Scott Mejia MD Primary Care Provi yayo, Attending Provider, Referring Provider Active Team Status: Active Member Role Status Dates Dr. Scott Mejia MD Primary Care Provi yayo, Attending Provider, Referring Provider Active Team Status: Active Member Role Status Dates Dr. Scott Mejia MD Primary Care Provi yayo, Referring Provider, Other Provider Active Dr. Nelly Sierra MD Attending Provider Active Team Status: Active Member Role Status Dates Dr. Scott Mejia MD Primary Care Provider Active Dr. Rimma Tavares MD Attending Provider Active Team Status: Active Member Role Status Dates Dr. Scott Mejia MD Primary Care Provider, Referring Provider Active Dr. Rimma Tavares MD Attending Provider Active Team Status: Inactive Member Role Status Dates Dr. Scott Mejia MD Primary Care Provider, Referring Provider Active Dr. Mannie Ibarra DO Attending Provider Active Team Status: Inactive Member Role Status Dates Dr. Scott Mejia MD Primary Care Provider Active Dr. Mannie Ibarra DO Attending Provider, Referring Pro vider Active Team Status: Active Member Role Status Dates Dr. Scott Mejia MD Primary Care Provider Active Dr. Justin Jim MD Emergency Provider Active Dr. Annmarie Al MD Admit Provider, At tending Provider, Other Provider Active Team Status: Active Member Role Status Dates Dr. Scott Mejia MD Primary Care Provider Active Dr. Justin Jim MD Emergency Provider Active Dr. Annmarie Al MD Admit Provider, Attending Provid er Active Team Status: Active Member Role Status Dates Dr. Scott Mejia MD Primary Care Provider Active Dr. Mannie Ibarra DO Attending Provider, Referring Pro vider Active Team Status: Active Member Role Status Dates Dr. Scott Mejia MD Primary Care Provider Active Dr. Justin Jim MD Emergency Provider Active Dr. Annmarie Al MD Admit Provider, Other Provider A ctive Dr. Ofelia Parson MD Other Provider Active Dr. Sina Junior MD Other Provider Active Dr. Mannie Ibarra DO Attending Provider, Other Provide r Active Dr. Neil Ozuna MD Other Provider Active Dr. Lashawn Kumar MD Other Provider Active Dr. Drew Gooden MD Other Provider Active Dr. Griselda Ruiz MD Other Provider Active Dr. Maylin Pantoja MD Other Provider Active Dr. Gab Doty MD Other Provider Active Dr. Pasha Ayon MD Other Provider Active Dr. Allan Zarate MD Other Provider Active Dr. Jl Murphy MD Other Provider Active Raf Murillo MD Other Provider Active Dr. Aida Chaparro MD Other Provider Active Debbie Morrell MD Other Provider Active Dr. Leyda Ramos DO Other Provider Active Dr. Mary Mcclure MD Other Provider Active Dr. Hermelindo Combs MD Other Provider Active Dr. Fabi Koo MD Other Provider Active Dr. Theo Wu MD Other Provider Active Dr. Ruben Cat MD Other Provider Active Lindsay Montana MD Other Provider Active Dr. Nick Noyola MD Other Provider Active Dr. Lupe Meza MD Other Provider Active Dr. Naveen High MD Other Provider Active Dr. Mariah Ayala MD Other Provider Active Dr. Geovany Rubin MD Other Provider Active Dr. Yaquelin Hurtado MD Other Provider Active Dr. Abhijeet Jessica MD Other Provider Active Dr. Marilou Gallego MD Other Provider Active Tesfaye Nunez MD Other Provider Active Team Status: Active Member Role Status Dates Dr. Scott Mejia MD Primary Care Provider Active Dr. Justin Jim MD Emergency Provider Active Dr. Annmarie Al MD Admit Provider, At [facility], Other Provider Active Dr. Ofelia Parson MD Other Provider Active Dr. Sina Junior MD Other Provider Active Dr. Mannie Ibarra DO Other Provider Active Dr. Neil Ozuna MD Other Provider Active Dr. Lashawn Kumar MD Other Provider Active Dr. Drew Gooden MD Other Provider Active Dr. Griselda Ruiz MD Other Provider Active Dr. Maylin Pantoja MD Other Provider Active Dr. Gab Doty MD Other Provider Active Dr. Pasha Ayon MD Other Provider Active Dr. Allan Zarate MD Other Provider Active Dr. Jl Murphy MD Other Provider Active Raf Murillo MD Other Provider Active Dr. Aida Chaparro MD Other Provider Active Debbie Morrell MD Other Provider Active Dr. Leyda Ramos DO Other Provider Active Dr. Mary Mcclure MD Other Provider Active Dr. Hermelindo Combs MD Other Provider Active Dr. Fabi Koo MD Other Provider Active Dr. Theo Wu MD Other Provider Active Dr. Ruben Cat MD Other Provider Active Lindsay Montana MD Other Provider Active Dr. Nick Noyola MD Other Provider Active Dr. Lupe Meza MD Other Provider Active Dr. Naveen High MD Other Provider Active Dr. Mariah Ayala MD Other Provider Active Dr. Geovany Rubin MD Other Provider Active Dr. Yaquelin Hurtado MD Other Provider Active Dr. Abhijeet Jessica MD Other Provider Active Dr. Marilou Gallego MD Other Provider Active Tesfaye Nunez MD Other Provider Active Team Status: Active Member Role Status Dates Dr. Scott Mejia MD Primary Care Provider Active Dr. Radha Rodriguez MD Attending Provider Active Team Status: Active Member Role Status Dates Dr. Scott Mejia MD Primary Care Provider Active Dr. Justin Jim MD Emergency Provider Active Dr. Annmarie Al MD Admit Provider, At tending Provider, Other Provider Active Raf Murillo MD Other Provider Active Dr. Aida Chaparro MD Other Provider Active Debbie Morrell MD Other Provider Active Dr. Leyda Ramos DO Other Provider Active Dr. Mary Mcclure MD Other Provider Active Dr. Hermelindo Combs MD Other Provider Active Dr. Fabi Koo MD Other Provider Active Dr. Theo Wu MD Other Provider Active Dr. Ruben Cat MD Other Provider Active Lindsay Montana MD Other Provider Active Dr. Nick Noyola MD Other Provider Active Dr. Lupe Meza MD Other Provider Active Dr. Naveen High MD Other Provider Active Dr. Mariah Ayala MD Other Provider Active Dr. Geovany Rubin MD Other Provider Active Dr. Yaquelin Hurtado MD Other Provider Active Dr. Abhijeet Jessica MD Other Provider Active Dr. Marilou Gallego MD Other Provider Active Tesfaye Nunez MD Other Provider Active Team Status: Active Member Role Status Dates Dr. Scott Mejia MD Primary Care Provider Active Dr. Justin Jim MD Emergency Provider Active Dr. Annmarie Al MD Admit Provider, Other Provider A ctive Raf Murillo MD Other Provider Active Dr. Aida Chaparro MD Other Provider Active Debbie Morrell MD Other Provider Active Dr. Leyda Ramos DO Other Provider Active Dr. Mary Mcclure MD Other Provider Active Dr. Hermelindo Combs MD Other Provider Active Dr. Fabi Koo MD Other Provider Active Dr. Theo Wu MD Other Provider Active Dr. Ruben Cat MD Other Provider Active Lindsay Montana MD Other Provider Active Dr. Nick Noyola MD Other Provider Active Dr. Lupe Meza MD Other Provider Active Dr. Naveen High MD Other Provider Active Dr. Mariah Ayala MD Other Provider Active Dr. Geovany Rubin MD Other Provider Active Dr. Yaquelin Hurtado MD Other Provider Active Dr. Abhijeet Jessica MD Other Provider Active Dr. Marilou Gallego MD Other Provider Active Tesfaye Nunez MD Other Provider Active Dr. Marjan Pizarro MD Attending Provider, Other Prov ider Active Team Status: Active Member Role Status Dates Dr. Scott Mejia MD Primary Care Provider Active Dr. Justin Jim MD Emergency Provider Active Dr. Annmarie Al MD Admit Provider, Other Provider A ctive Raf Murillo MD Other Provider Active Dr. Aida Chaparro MD Other Provider Active Debbie Morrell MD Other Provider Active Dr. Leyda Ramos DO Other Provider Active Dr. Mary Mcclure MD Other Provider Active Dr. Hermelindo Combs MD Other Provider Active Dr. Fabi Koo MD Other Provider Active Dr. Theo Wu MD Other Provider Active Dr. Ruben Cat MD Other Provider Active Lindsay Montana MD Other Provider Active Dr. Nick Noyola MD Other Provider Active Dr. Lupe Meza MD Other Provider Active Dr. Naveen High MD Other Provider Active Dr. Mariah Ayala MD Other Provider Active Dr. Geovany Rubin MD Other Provider Active Dr. Yaquelin Hurtado MD Other Provider Active Dr. Abhijeet Jessica MD Other Provider Active Dr. Marilou Gallego MD Other Provider Active Tesfaye Nunez MD Other Provider Active Dr. Marjan Pizarro MD Attending Provider Active Team Status: Inactive Member Role Status Dates Dr. Scott Mejia MD Primary Care Provider Active Dr. Justin Jim MD Emergency Provider Active Dr. Annmarie Al MD Admit Provider, Other Provider A ctarsalan Murillo MD Other Provider Active Dr. Aida Chaparro MD Other Provider Active Debbie Morrell MD Other Provider Active Dr. Leyda Ramos DO Other Provider Active Dr. Mary Mcclure MD Other Provider Active Dr. Hermelindo Cmobs MD Other Provider Active Dr. Fabi Koo MD Other Provider Active Dr. Theo Wu MD Other Provider Active Dr. Ruben Cat MD Other Provider Active Lindsay Montana MD Other Provider Active Dr. Nick Noyola MD Other Provider Active Dr. Lupe Meza MD Other Provider Active Dr. Naveen High MD Other Provider Active Dr. Mariah Ayala MD Other Provider Active Dr. Geovany Rubin MD Other Provider Active Dr. Yaqeulin Hurtado MD Other Provider Active Dr. Abhijeet Jessica MD Other Provider Active Dr. Marilou Gallego MD Other Provider Active Tesfaye Nunez MD Other Provider Active Dr. Marjan Pizarro MD Attending Provider Active Team Status: Inactive Member Role Status Dates Dr. Scott Mejia MD Primary Care Provider, Referring Provider Active Dayami Montes De Oca SEMICONDUCTOR EQUIPMENT TECHNICIAN, SEMICONDUCTOR EQUIPMENT TECHNICIAN-C Attending Provider Active Team Status: Active Member Role Status Dates Dr. Scott Mejia MD Primary Care Provider Active Dr. Justin Jim MD Emergency Provider Active Dr. Annmarie Al MD Admit Provider, Re ferring Provider, Other Provider Active Dr. Ofelia Parson MD Other Provider Active Dr. Sina Junior MD Other Provider Active Dr. Mannie Ibarra DO Attending Provider, Other Provide r Active Dr. Neil Ozuna MD Other Provider Active Dr. Lashawn Kumar MD Other Provider Active Dr. Drew Gooden MD Other Provider Active Dr. Griselda Ruiz MD Other Provider Active Dr. Maylin Pantoja MD Other Provider Active Dr. Gab Doty MD Other Provider Active Dr. Pasha Ayon MD Other Provider Active Dr. Allan Zarate MD Other Provider Active Dr. Jl Murphy MD Other Provider Active Raf Murillo MD Other Provider Active Dr. Aida Chaparro MD Other Provider Active Debbie Morrell MD Other Provider Active Dr. Leyda Ramos DO Other Provider Active Dr. Mary Mcclure MD Other Provider Active Dr. Hermelindo Combs MD Other Provider Active Dr. Fabi Koo MD Other Provider Active Dr. Theo Wu MD Other Provider Active Dr. Ruben Cat MD Other Provider Active Lindsay Montana MD Other Provider Active Dr. Nick Noyola MD Other Provider Active Dr. Lupe Meza MD Other Provider Active Dr. Naveen High MD Other Provider Active Dr. Mariah Ayala MD Other Provider Active Dr. Geovany Rubin MD Other Provider Active Dr. Yaquelin Hurtado MD Other Provider Active Dr. Abhijeet Jessica MD Other Provider Active Dr. Marilou Gallego MD Other Provider Active Tesfaye Nunez MD Other Provider Active Team Status: Active Member Role Status Dates Dr. Scott Mejia MD Primary Care Provider Active Dr. Radha Rodriguez MD Attending Provider Active Dr. Annmarie Al MD Referring Provider Active Team Status: Active Member Role Status Dates Dr. Scott Mejia MD Primary Care Provider Active Dr. Marjan Pizarro MD Attending Provider, Referring Provider Active Team Status: Active Member Role Status Dates Dr. Scott Mejia MD Primary Care Provider Active Dr. Fer Mcintyre MD Attending Provider Active Dr. Marjan Pizarro MD Referring Provider Active Team Status: Inactive Member Role Status Dates Dr. Scott Mejia MD Primary Care Provider Active Dayami Montes De Oca SEMICONDUCTOR EQUIPMENT TECHNICIAN, SEMICONDUCTOR EQUIPMENT TECHNICIAN-C Attending Provider, Referrin g Provider Active Team Status: Active Member Role Status Dates Dr. Scott Mejia MD Primary Care Provider Active Alexey Quinn MD Emergency Provider Active Dr. Lisa Guevara MD Referring Provider, Other Provid er Active Dr. Chase West DO Admit Provider, Attending Pr ovidsuman Active Team Status: Active Member Role Status Dates Dr. Scott Mejia MD Primary Care Provider Active Team Status: Inactive Member Role Status Dates Dr. Scott Mejia MD Primary Care Provider Active Start: November 03, 2024 End: November 03, 2024 Dr. Carole Ruiz MD Attending Provider Active Start: November 03, 2024 End: November 03, 2024 Dr. Carole Ruiz MD Referring Provider Active Start: November 03, 2024 End: November 03, 2024 Team Status: Inactive Member Role Status Dates Dr. Scott Mejia MD Primary Care Provider Active Start: December 11, 2024 End: December 11, 2024 Dr. Anthony Dewitt MD Attending Provider Active Start: December 11, 2024 End: December 11, 2024 Dr. Anthony Dewitt MD Referring Provider Active Start: December 11, 2024 End: December 11, 2024 Team Status: Inactive Member Role Status Dates Dr. Scott Mejia MD Primary Care Provider Active Start: December 25, 2024 End: December 25, 2024 Dr. Scott Mejia MD Referring Provider Active Start: December 25, 2024 End: December 25, 2024 Azucena Cai SEMICONDUCTOR EQUIPMENT TECHNICIAN, SEMICONDUCTOR EQUIPMENT TECHNICIAN-C Attending Provider Active Start: December 25, 2024 End: December 25, 2024 Team Status: Inactive Member Role Status Dates Dr. Scott Mejia MD Primary Care Provider Active Start: December 30, 2024 End: December 30, 2024 Azucena Cai SEMICONDUCTOR EQUIPMENT TECHNICIAN, SEMICONDUCTOR EQUIPMENT TECHNICIAN-C Attending Provider Active Start: December 30, 2024 End: December 30, 2024 Azucena Cai SEMICONDUCTOR EQUIPMENT TECHNICIAN, SEMICONDUCTOR EQUIPMENT TECHNICIAN-C Referring Provider Active Start: December 30, 2024 End: December 30, 2024 Team Status: Active Member Role Status Dates Dr. Scott Mejia MD Primary Care Provider Active Start: December 30, 2024 Azucena Cai SEMICONDUCTOR EQUIPMENT TECHNICIAN, SEMICONDUCTOR EQUIPMENT TECHNICIAN-C Referring Provider Active Start: December 30, 2024 Azucena Cai SEMICONDUCTOR EQUIPMENT TECHNICIAN, SEMICONDUCTOR EQUIPMENT TECHNICIAN-C Other Provider Active Sta rt: December 30, 2024 Dr. Fer Mcintyre MD Attending Provider Active S tart: December 30, 2024 Team Status: Active Member Role/Relationship Status Dates Dr. Scott Mejia MD Primary Care Provider Active Team Status: Inactive Member Role/Relationship Status Dates Dr. Scott Mejia MD Primary Care Provider Active Start: December 11, 2024 End: December 11, 2024 Dr. Anthony Dewitt MD Attending Provider Active Start: December 11, 2024 End: December 11, 2024 Dr. Anthony Dewitt MD Referring Provider Active Start: December 11, 2024 End: December 11, 2024 Team Status: Inactive Member Role/Relationship Status Dates Dr. Scott Mejia MD Primary Care Provider Active Start: December 25, 2024 End: December 25, 2024 Dr. Scott Mejia MD Referring Provider Active Start: December 25, 2024 End: December 25, 2024 Azucena Cai SEMICONDUCTOR EQUIPMENT TECHNICIAN, SEMICONDUCTOR EQUIPMENT TECHNICIAN-C Attending Provider Active Start: December 25, 2024 End: December 25, 2024 Team Status: Inactive Member Role/Relationship Status Dates Dr. Scott Mejia MD Primary Care Provider Active Start: December 30, 2024 End: December 30, 2024 Azucena Cai SEMICONDUCTOR EQUIPMENT TECHNICIAN, SEMICONDUCTOR EQUIPMENT TECHNICIAN-C Attending Provider Active Start: December 30, 2024 End: December 30, 2024 Azucena Cai SEMICONDUCTOR EQUIPMENT TECHNICIAN, SEMICONDUCTOR EQUIPMENT TECHNICIAN-C Referring Provider Active Start: December 30, 2024 End: December 30, 2024 Team Status: Active Member Role/Relationship Status Dates Dr. Scott Mejia MD Primary Care Provider Active Start: December 30, 2024 Azucena Cai SEMICONDUCTOR EQUIPMENT TECHNICIAN, SEMICONDUCTOR EQUIPMENT TECHNICIAN-C Referring Provider Active Start: December 30, 2024 Azucena Cai SEMICONDUCTOR EQUIPMENT TECHNICIAN, SEMICONDUCTOR EQUIPMENT TECHNICIAN-C Other Provider Active Sta rt: December 30, 2024 Dr. Fer Mcintyre MD Attending Provider Active S tart: December 30, 2024 Team Status: Active Member Role/Relationship Status Dates Dr. Scott Mejia MD Primary Care Provider Active Start: January 07, 2025 Azucena Cai SEMICONDUCTOR EQUIPMENT TECHNICIAN, SEMICONDUCTOR EQUIPMENT TECHNICIAN-C Attending Provider Active Start: January 07, 2025 Azucena Cai SEMICONDUCTOR EQUIPMENT TECHNICIAN, SEMICONDUCTOR EQUIPMENT TECHNICIAN-C Referring Provider Active Start: January 07, 2025 Team Status: Active Member Role/Relationship Status Dates Dr. Scott Mejia MD Primary Care Provider Active Start: January 07, 2025 Dr. Carole Ruzi MD Attending Provider Active Start: January 07, 2025 Azucena Cai SEMICONDUCTOR EQUIPMENT TECHNICIAN, SEMICONDUCTOR EQUIPMENT TECHNICIAN-C Referring Provider Active Start: January 07, 2025 Team Status: Inactive Member Role/Relationship Status Dates Dr. Scott Mejia MD Primary Care Provider Active Start: January 15, 2025 End: January 15, 2025 Dr. Scott Mejia MD Attending Provider Active Start: January 15, 2025 End: January 15, 2025 Dr. Scott Mejia MD Referring Provider Active Start: January 15, 2025 End: January 15, 2025 Team Status: Inactive Member Role/Relationship Status Dates Dr. Scott Mejia MD Primary Care Provider Active Start: January 19, 2025 End: January 19, 2025 Dr. Lucius Ramesh DO Attending Provider Active Start : January 19, 2025 End: January 19, 2025 Dr. Lucius Ramesh DO Emergency Provider Active Start : January 19, 2025 End: January 19, 2025 Team Status: Inactive Member Role/Relationship Status Dates Dr. Scott Mejia MD Primary Care Provider Active Start: January 26, 2025 End: January 26, 2025 Dr. Scott Mejia MD Referring Provider Active Start: January 26, 2025 End: January 26, 2025 Azucena Cai SEMICONDUCTOR EQUIPMENT TECHNICIAN, SEMICONDUCTOR EQUIPMENT TECHNICIAN-C Attending Provider Active Start: January 26, 2025 End: January 26, 2025 Team Status: Inactive Member Role/Relationship Status Dates Dr. Scott Mejia MD Primary Care Provider Active Start: March 24, 2025 End: March 24, 2025 Dr. Scott Mejia MD Referring Provider Active Start: March 24, 2025 End: March 24, 2025 Dayami Montes De Oca SEMICONDUCTOR EQUIPMENT TECHNICIAN, SEMICONDUCTOR EQUIPMENT TECHNICIAN-C Attending Provider Active Start: March 24, 2025 End: March 24, 2025 Goals (unrecognized section and content) Goals may be documented in a n alternate sectionGoals may be documented in an alternate sectionGoals may be documented in an alternate sectionGoals may be documented in an alternate sectionGoals may be documented in an alternate sectionGoals may be documented in an alternate sectionGoals may be documented in an alternate sectionGoals may be documented in an alternate section No data available for this section No data available for this section No data available for this sectionGoals may be documented in an alternate section No data available for this sectionGoals may be documented in an alternate section No data available for this section No data available for this sectionGoals may be documented in an alternate section No data available for this section Source Comments (unrecognize d section and content) In the event this informatio n is protected by the Federal Confidentiality of Alcohol and Drug Abuse Patient Records regulations: The Federal rules restrict any use of the information to criminally investigate or prosecute any alcohol or drug abuse patient.[facility] the event this information is protected by the Federal Confidentiality of Alcohol and Drug Abuse Patient Records regulations: The Federal rules restrict any use of the information to criminally investigate or prosecute any alcohol or drug abuse patient.[facility] the event this information is protected by the Federal Confidentiality of Alcohol and Drug Abuse Patient Records regulations: The Federal rules restrict any use of the information to criminally investigate or prosecute any alcohol or drug abuse patient.[facility] the event this information is protected by the Federal Confidentiality of Alcohol and Drug Abuse Patient Records regulations: The Federal rules restrict any use of the information to criminally investigate or prosecute any alcohol or drug abuse patient.[facility] the event this information is protected by the Federal Confidentiality of Alcohol and Drug Abuse Patient Records regulations: The Federal rules restrict any use of the information to criminally investigate or prosecute any alcohol or drug abuse patient.[facility] the event this information is protected by the Federal Confidentiality of Alcohol and Drug Abuse Patient Records regulations: The Federal rules restrict any use of the information to criminally investigate or prosecute any alcohol or drug abuse patient.[facility] West[facility] the event this information is protected by the Federal Confidentiality of Alcohol and Drug Abuse Patient Records regulations: The Federal rules restrict any use of the information to criminally investigate or prosecute any alcohol or drug abuse patient.[facility] Reason for Visit (unrecogniz ed section and content) Reason Comments Referral Request Reason Comments [employer] - Other Reason Comments New Patient Evaluation Reason Comments Copy of MRI Disk Reason Comments Radiology MRI Specialty Diagnoses / Procedures Referred By Rogelio villagomez Referred To Contact MR IMAGING Diagnoses Stroke-like symptoms Left-sided weakness Weakness of both lower extremities Recurrent falls Procedures MRI BRAIN WO IVCON MRI BRAIN BRAIN STEM W/O CONTRAST MATERIAL Jl Anaya Jr., MD [facility] [place] [address] Mr Imaging [id number] Referral ID Status Reason Start Date Expiration Date V isits Requested Visits Authorized [id number] Closed Auto-Generate d Referral 10/24/2023 11/22/2024 1 1 Specialty Diagnoses / Procedures Referred By Rogelio t Referred To Contact MR IMAGING Diagnoses Spinal stenosis of lumbar region without neurogenic claudication Weakness of both lower extremities Recurrent falls Procedures MRI LUMBAR SPINE WO IVCON MRI SPINAL CANAL LUMBAR W/O CONTRAST MATERIAL Jl Anaya Jr., MD [facility] [address] [place] [id number] [place] [id number] Referral ID Status Reason Start Date Expiration Date V isits Requested Visits Authorized [id number] Closed Auto-Generate d Referral 10/24/2023 11/22/2024 1 1 Specialty Diagnoses / Procedures Referred By Contac t Referred To Contact MR IMAGING Diagnoses Spinal stenosis of cervical region Left-sided weakness Procedures MRI CERVICAL SPINE WO IVCON MRI SPINAL CANAL CERVICAL W/O CONTRAST MATRL Jl Anaya Jr., MD [address] [facility] [address] [place] [address] [place] [id number] Referral ID Status Reason Start Date Expiration Date V isits Requested Visits Authorized [id number] Closed Auto-Generate d Referral 10/24/2023 11/22/2024 1 1 (unrecognized sect ion and content) No Status Records FoundNo Status Records FoundNo Status Records FoundNo Status Records FoundNo Status Records FoundNo Status Records Found INFORMATION SOURCE (unrecogn ized section and content) DATE CREATED AUTHOR 11/07/2023 [facility] DATE CREATED AUTHOR AUTHOR'S ORGANIZ ATION 11/13/2023 [facility] DATE CREATED AUTHOR AUTHOR'S ORGANIZ ATION 05/01/2024 [facility] ([place]) DATE CREATED AUTHOR AUTHOR'S ORGANIZ ATION 01/30/2025 [facility] DATE CREATED AUTHOR AUTHOR'S ORGANIZ ATION 05/03/2025 [facility] DATE CREATED AUTHOR AUTHOR'S ORGANIZ ATION 08/04/2025 [facility] FOR RECORDS PERTAINING TO PATIENTS WHO ARE [...] BE BASED ON THE PRIMARY CLINICAL RECORDS. [employer] provides no warranty or guarantee of the accuracy or completeness of information in this document.
== END | disposition home or self-care (01) ==
LOC: CVS 07:47
PROVIDERS: PCP Family Medicine; Referring Provider Podiatrist; Visit Provider Podiatrist
DX: I73.9 Peripheral vascular disease, unspecified (principal)
CPT/HCPCS: 93923